=== PATIENT | male | born 1945 | race Caucasian/White ===

== ENCOUNTER 2020-12-23 14:30 | Inpatient (IN) | payer MEDICARE, SELFPAY ==
--- NOTE | ~2020-12-23 | CT_ITS ---
EXAMINATION: CT HEAD WITHOUT CONTRAST CT CERVICAL SPINE WITHOUT CONTRAST CLINICAL INFORMATION: Trauma COMPARISON: 01/14/2019 TECHNIQUE: Multidetector CT imaging of the head and cervical spine was performed without the use of intravenous contrast. Multiplanar reformats are reviewed. This CT examination was performed using dose optimization techniques as appropriate, variously including the following: *Automated exposure control *Adjustment of mA and/or kV according to patient size (this includes techniques or standardized protocols for targeted exams where dose is matched to indication/reason for exam; i.e. extremities or head) *Use of iterative reconstruction technique DLP: 1067 mGy-cm. FINDINGS: There is no evidence of acute intracranial hemorrhage or territorial infarction. No abnormal mass effect or midline shift is seen. Gross to white matter differentiation is well preserved. No extra-axial fluid collections are identified. The ventricles are normal in size. Stable patchy subcortical and periventricular white matter low-attenuation changes, statistically reflective of chronic white matter small vessel ischemic disease. Cavernous carotid calcifications. The osseous structures and soft tissues are normal. Complete opacification of the right axillary sinus, ethmoid air cells, right frontal sinus and sphenoid sinus redemonstrated, with associated hyperostosis. Left paranasal sinuses are clear. Mastoid air cells are clear. Atlantooccipital alignment is maintained. The vertebral bodies and posterior elements align normally. No acute fracture or subluxation. Vertebral body heights are maintained.Endplate osteophytes present throughout the cervical spine, most notably at C5-C6 and C6-C7 with accompanying uncovertebral arthrosis. Facet arthropathy present throughout the cervical spine. This leads to varying degrees of foraminal narrowing throughout the cervical spine. The cervicomedullary junction and spinal cord are grossly unremarkable. The paraspinal soft tissues are unremarkable. The imaged lung apices are clear CT/CT cervical spine wo con IMPRESSION: No acute intracranial pathology. No cervical spine fracture or malalignment. Complete opacification of the right paranasal sinuses redemonstrated, with accompanying hyperostosis.
--- NOTE | ~2020-12-23 | CT_ITS ---
EXAMINATION: CTA CHEST, PE protocol. CT PELVIS WITH CONTRAST CLINICAL INFORMATION: Hypoxia. Cough. Shortness of breath. Fall on left side. Dementia. COMPARISON: Chest x-ray 10/23/2020. CT abdomen 03/16/2018 TECHNIQUE: A noncontrast localizer was performed, followed by the administration of 54 mL Omnipaque [address] of the chest was then performed. Coronal and sagittal reformatted and 3-D technique MIP images of the chest were completed at the CT scanner and reviewed on the PACS workstation. No adverse effects were reported. Images were then performed through the pelvis. Coronal and sagittal reformatted images performed at CT scanner by technologist. [This CT examination was performed using dose optimization techniques as appropriate, variously including the following: *Automated exposure control *Adjustment of mA and/or kV according to patient size (this includes techniques or standardized protocols for targeted exams where dose is matched to indication/reason for exam; i.e. extremities or head) *Use of iterative reconstruction technique] DLP: 631 mGy-cm. FINDINGS: CTA CHEST Vascular: The main pulmonary artery, secondary and tertiary branches of the pulmonary artery are normally opacified with no evidence of pulmonary embolism. The aorta and great vessels are unremarkable. Mediastinum: No mediastinal mass. No significant lymphadenopathy. There is no pericardial effusion. Heart size is normal. Moderate volume of coronary artery calcification. Thyroid is unremarkable. Lungs: There is patchy airspace disease at both lung bases, right greater on the right than the left, involving both lower lobes. There are a few small airspace opacities also scattered in the right upper lobe Fluid: There is no pericardial effusion. There is no pleural effusion. Axilla: No significant lymphadenopathy. Upper abdomen: Multiple small calcified granuloma within the spleen. Visualized portions of the liver, pancreas, adrenal glands and kidneys are unremarkable. Large volume of stool in the colon without abnormally dilated bowel loop. CT SCAN PELVIS: Bladder: Unremarkable. Gastrointestinal Tract: No acute change of visualized bowel loops. There is no bowel wall thickening /edema. There is no bowel obstruction. There is a moderate to large volume of stool in the colon. The appendix is normal . The small bowel loops are unremarkable. Abdominal Wall: Small right inguinal hernia containing a nonobstructed loop of distal small bowel bowel. Lymph Nodes: Normal. Vascular: Atherosclerotic vascular calcifications of the abdominal aorta and iliac arteries. Pelvic Viscera: Prostate measures 4.2 cm transverse. There are coarse calcifications within the prostate. Osseous Structures: No acute osseous abnormality. No acute fracture. Status post left hip replacement. Orthopedic cement in the left acetabulum. Old healed fracture of the inferior and superior left pubic ramus. Intramedullary gordon present in the proximal right femur. Diffuse osteopenia. Multilevel degenerative spondylosis of the lower lumbar spine. Multiple healed old bilateral rib fractures. CT/CT angio chest PE protocol IMPRESSION: 1.CT CHEST: No evidence of pulmonary embolism. There is bilateral airspace disease worse in the right than the left lung. 2..CT PELVIS: No acute osseous abnormality. Status post left hip replacement. Intramedullary gordon present in the right femur. Old healed fractures of the left superior and inferior pubic ramus.
--- NOTE | ~2020-12-23 | XR_ITS ---
EXAMINATION: XR HIP, LEFT CLINICAL INFORMATION: Fall COMPARISON: Most recent left hip radiographs dated 07/10/2019. TECHNIQUE: AP view the pelvis as well as AP and frog-leg lateral views of the left hip. FINDINGS: No acute fracture or dislocation. Extensive postsurgical change consistent with left hip arthroplasty, redemonstrated. No hardware fracture. Along the lateral aspect of the femoral component there is lucency measuring 0.3 cm in ML dimension, new when compared to the prior examination. Findings could indicate a degree of loosening or infection in the appropriate clinical setting. Prominent dystrophic calcification adjacent to the left hip arthroplasty, unchanged. XR/XR hip LT w PEL1V IMPRESSION: No acute fracture or dislocation. Redemonstration of left hip arthroplasty with arthroplasty components in unchanged alignment. No hardware fracture. Increasing lucency along the lateral aspect of the femoral component, which could indicate a degree of loosening or infection in the appropriate clinical setting.
--- NOTE | ~2020-12-23 | XR_ITS ---
EXAMINATION: XR CHEST CLINICAL INFORMATION: Cough, shortness of breath. COMPARISON: Most recent chest radiograph dated 01/13/2018. TECHNIQUE: Frontal view of the chest was obtained. FINDINGS: No focal airspace consolidation. No pleural effusion or pneumothorax. Stable cardiomediastinal silhouette. No acute osseous abnormality. XR/XR chest 1V IMPRESSION: No acute cardiopulmonary findings.
[2020-12-23 14:46] VITALS: BP 98/35; PULSE 59; RESP 20; TEMP 36.5; O2SAT 92; BMI 17.3
--- NOTE | 2020-12-23 15:29 | ECG_ITS ---
Test Reason : WEAKNESS Blood Pressure : / mmHG Vent. Rate : 062 BPM Atrial Rate : 062 BPM P-R Int : 124 ms QRS Dur : 084 ms QT Int : 436 ms P-R-T Axes : 068 072 096 degrees QTc Int : 442 ms Sinus rhythm with occasional Premature ventricular complexes Nonspecific T wave abnormality Abnormal ECG When compared with ECG of 22-JAN-2019 06:51, Nonspecific T wave abnormality now evident in Lateral leads Referred By: Elisabeth Patricio Electronically Signed By:GUERA SHUKLA
[2020-12-23] MEDS: Albuterol/Iprat 2.5/0.5MG 3 ML AMPUL.NEB INHALE ×2 (16:13→18:10)
[2020-12-23 16:14] VITALS: PULSE 78; O2SAT 95
[2020-12-23 16:29] LABS: Basophils Percent Auto 0.1 % (0-2); Eosinophils Percent Auto 0.3 % (0-4); Hematocrit 41.4 % (42-52); Hemoglobin 13.1 g/dl (14.0-18.0); Imm Gran Abs Auto 0.01 X10*3/uL (0.00-0.03); Imm Gran Pct Auto 0.1 % (0.0-0.4); Lymphocytes Absolute Auto 0.6 X10*3/uL (1.2-4.9); Lymphocytes Percent Auto 8.2 % (20-40); MANUAL DIFF FLAG SCAN; Mean Corpuscular HGB Conc 31.6 g/dl (31.0-36.0); Mean Corpuscular Hemoglobin 30.3 pg (27.0-33.0); Mean Corpuscular Volume 95.6 fL (80-98); Mean Platelet Volume 12.4 fL (9.4-12.4); Monocytes Absolute Auto 0.3 X10*3/uL (0.1-1.2); Monocytes Percent Auto 4.5 % (2-11); Neutrophils Absolute Auto 6.4 X10*3/uL (2.0-8.3); Neutrophils Percent Auto 86.8 % (45-73); Platelet Count 157 X10*3/uL (160-400); Red Blood Count 4.33 X10*6/uL (4.60-5.80); Red Cell Distribution Width 13.6 % (11.0-16.0); SCAN SMEAR FLAG 1; White Blood Count 7.4 X10*3/uL (4.8-10.8)
[2020-12-23 16:34] LABS: INTERNATIONAL NORM RATIO 1.1 (0.9-1.1); Prothrombin Time 12.8 SEC (10.8-13.0)
[2020-12-23 16:37] LABS: Partial Thromboplastin Time 28.4 SEC (24.1-38.0)
[2020-12-23] MEDS: cefTRIAXone sodium 1 GM in 0.9 % Sodium Chloride 50 ML IV (16:43)
[2020-12-23] MEDS: 0.9 % Sodium Chloride 1,000 ML 999 ML IVCONT (16:43)
[2020-12-23 16:48] LABS: SLIDE REVIEW VERIFIED
[2020-12-23 16:56] LABS: Lactic Acid 1.6 mmol/L (0.5-2.0)
[2020-12-23 17:01] LABS: Alanine Aminotransferase 10 U/L (0-40); Albumin Level 3.9 g/dL (3.5-5.0); Alkaline Phosphatase 131 U/L (39-117); Anion Gap 16 (12-20); Aspartate Amino Transferase 13 U/L (5-37); Bilirubin Direct 0.4 mg/dL (0.0-0.5); Bilirubin Total 0.8 mg/dL (0.0-1.0); Blood Urea Nitrogen 38 mg/dL (9-16); Calcium 8.9 mg/dL (8.4-10.2); Carbon Dioxide 26 mmol/L (22-29); Chloride 106 mmol/L (96-108); Creatinine Clr Calc Pharmacy 36.3; Estimated Glomerular Filt Rate 53; Glucose Random 127 mg/dL (60-115); Magnesium 2.1 mg/dL (1.6-2.6); Potassium 4.5 mmol/L (3.3-5.1); Sodium 143 mmol/L (135-145); Total Protein 6.8 g/dL (6.5-8.0)
--- NOTE | 2020-12-23 17:10 | ED_ITS ---
HPI - General Adult General Chief complaint: General Medical Stated complaint: FALL 5 DAYS AGO, ?BACK PAIN Time Seen by Provider: 12/23/20 15:09 Source: patient and EMS Mode of arrival: EMS History of Present Illness HPI narrative: 75-year-old male with a past medical history of dementia, orthostatic hypotension, coming from home BIBA c/o increased SOB, cough, and left hip pain x5 days s/p mechanical fall at home. Patient reports tripped and fell over carpet, reports believes he hit his head, admits to LOC, states fell on left side. Denies chest pain, fever, chills, abdominal pain, nausea, vomiting, headache History limited secondary to patient's baseline dementia. Unable to get a hold of patient's family Related Data Allergies Allergy/AdvReac Type Severity Reaction Status Date / Time No Known Allergies Allergy Unverified 04/13/20 16:05 [No Known Allergies*] Review of Systems Review of Systems: Constitutional: No Fever, No Chills Cardiovascular: No Chest Pain, + SOB, No Orthopnea, No Edema Respiratory: + Cough, No Sputum, No Wheezing, +Dyspnea Gastrointestinal: No Nausea, No Vomiting, No Diarrhea, No Abdominal pain Genitourinary: No Dysuria, No Urinary Frequency, No Hematuria Musculoskeletal: + joint pain, No Myalgias, No Joint Swelling Skin: No Skin Lesions, No rash Neuro: No Weakness, No Numbness, No Paresthesias, + Loss of Consciousness, No Dizziness, No Headache Yes all other systems are reviewed and are negative [facility] Past Medical History Attestation statement: The following information was validated with the patient. Social History Social History Patient Tobacco Use Status: Tobacco use Unknown Use of substances other than those prescribed or required for medical reasons: Unknown Last Used Substance: Unknown Advance Directives: No Advance Directives Information Provided: No Physical Exam Vital Signs: Vital Signs: Last Vital Signs Temp 97.7 F 12/23/20 14:46 Pulse 85 12/23/20 18:02 Resp 20 12/23/20 18:02 BP 98/35 L 12/23/20 14:46 Pulse Ox 95 12/23/20 18:02 Body Mass Index 17.3 Const: General: cooperative, alert and awake Orientation/consciousness: oriented to person and oriented to place HENMT: Head: Yes normal to inspection and Yes atraumatic Ears: hearing grossly normal bilaterally General nose exam: Normal external nose present Face and sinus: Yes normal facial exam Eyes: General: appearance normal, both eyes and all related structures Pupils: Equal, round and reactive pupils present EOM: EOMs intact bilaterally Neck: Other: No midline cervical spinous tenderness Neck: Yes normal visual inspection and Yes no meningeal signs Chest: Chest palpation & inspection: normal inspection of the chest and no tenderness Resp: Other: Coarse lung sounds throughout Effort & Inspection: normal respiratory effort Auscultation: rhonchi throughout Cardio: Rate: regular rate Heart sounds: S1 normal heart sound present and S2 normal heart sound present GI: Inspection: Yes normal to inspection Palpation (GI): Soft to palpation, nontender, no guarding and not rigid Back/Spine/Pelvis: Other: No midline thoracic/lumbar spinous tenderness or step-off/deformity Skin: Rashes: no rashes Wounds: no wounds Neuro: General: oriented to person, oriented to place, tone normal, moves all extremities, no meningeal signs and CN's II-XI intact bilaterally Cranial nerves: Yes Equal, round and reactive pupils present Motor exam (neuro): 5/5 motor strength present throughout, Pronator motor function not present and no tremor noted Coordination: [id number] test normal Extrem: Other: Pelvis stable. Left hip with tenderness to palpation. Passive and active ROM intact. NV intact distally General: Yes normal to inspection Course Course Course Narrative: -no leukocytosis, H&H stable, lactic negative, troponin 4.1 XR chest 1V IMPRESSION: No acute cardiopulmonary findings. >> will obtain CTA to rule out PE CT head/brain wo con IMPRESSION: No acute intracranial pathology. No cervical spine fracture or malalignment. Complete opacification of the right paranasal sinuses redemonstrated, with accompanying hyperostosis. XR hip LT w PEL1V IMPRESSION: No acute fracture or dislocation. Redemonstration of left hip arthroplasty with arthroplasty components in unchanged alignment. No hardware fracture. Increasing lucency along the lateral aspect of the femoral component, which could indicate a degree of loosening or infection in the appropriate clinical setting. >> will obtain CT pelvis and hip to further evaluate secondary to patient's dementia/unreliable history -1914--COVID-19/influenza/RSV negative. CT angio chest PE protocol/CT pelvis wo con IMPRESSION: 1.CT CHEST: No evidence of pulmonary embolism. There is bilateral airspace disease worse in the right than the left lung. 2..CT PELVIS: No acute osseous abnormality. Status post left hip replacement. Intramedullary gordon present in the right femur. Old healed fractures of the left superior and inferior pubic ramus. >> IV azithromycin added. Plan to admit for further management. Medical Decision Making [facility] Narrative Medical decision making narrative: 75-year-old male with a past medical history of dementia, orthostatic hypotension, coming from home BIBA c/o increased SOB, cough, and left hip pain x5 days s/p mechanical fall at home. On exam hypotensive, satting 83% on RA coarse lung sounds throughout, left hip with tenderness to palpation, no focal neuro deficits. Concern for pneumonia vs PE vs COVID-19/viral syndrome. Rule out fracture vs ICH vs metabolic abnormalities. Low concern for severe sepsis at this time Plan: EKG, labs, UA, x-rays, head/C-spine CT, DuoNeb, reassess Lab Data Result diagrams: 12/23/20 16:22 12/23/20 16:22 Labs: Lab Results 12/23/20 12/23/20 12/23/20 Range/Units 16:22 16:22 16:22 WBC 7.4 (4.8-10.8) X10*3/uL RBC 4.33 L (4.60-5.80) X10*6/uL Hgb 13.1 L (14.0-18.0) g/dl Hct 41.4 L (42-52) % MCV 95.6 (80-98) fL MCH 30.3 (27.0-33.0) pg MCHC 31.6 (31.0-36.0) g/dl RDW 13.6 (11.0-16.0) % Plt Count 157 L (160-400) X10*3/uL MPV 12.4 (9.4-12.4) fL Immature Gran % (Auto) 0.1 (0.0-0.4) % Neut % (Auto) 86.8 H (45-73) % Lymph % (Auto) 8.2 L (20-40) % [place] % (Auto) 4.5 (2-11) % Eos % (Auto) 0.3 (0-4) % Baso % (Auto) 0.1 (0-2) % Lymph # (Auto) 0.6 L (1.2-4.9) X10*3/uL [place] # (Auto) 0.3 (0.1-1.2) X10*3/uL Eos # (Auto) 0.0 (0.0-0.4) X10*3/uL Baso # (Auto) 0.0 (0.0-0.2) X10*3/uL Abs Immat Gran (auto) 0.01 (0.00-0.03) X10*3/uL Absolute Neuts (auto) 6.4 (2.0-8.3) X10*3/uL Absolute Nucleated RBC 0.000 (0.0-0.012) X10*3/uL Nucleated RBC % (auto) 0.0 (0.0-0.2) /100WBC Smear Tech's Comments VERIFIED PT 12.8 (10.8-13.0) SEC INR 1.1 (0.9-1.1) APTT 28.4 (24.1-38.0) SEC Sodium 143 (135-145) mmol/L Potassium 4.5 (3.3-5.1) mmol/L Chloride 106 (96-108) mmol/L Carbon Dioxide 26 (22-29) mmol/L Anion Gap 16 (12-20) BUN 38 H (9-16) mg/dL Creatinine 1.32 (0.5-1.4) mg/dL Estim Creat Clear Calc 36.3 Estimated GFR 53 Random Glucose 127 H (60-115) mg/dL Lactic Acid (0.5-2.0) mmol/L Calcium 8.9 (8.4-10.2) mg/dL Magnesium 2.1 (1.6-2.6) mg/dL Total Bilirubin 0.8 (0.0-1.0) mg/dL Direct Bilirubin 0.4 (0.0-0.5) mg/dL AST 13 (5-37) U/L ALT 10 (0-40) U/L Alkaline Phosphatase 131 H (39-117) U/L Troponin I High Sens (<3.5-35.0) ng/L B-Natriuretic Peptide (<100) pg/mL Total Protein 6.8 (6.5-8.0) g/dL Albumin 3.9 (3.5-5.0) g/dL Coronavirus (PCR) (Negative) Influenza Type A (PCR) (Negative) Influenza Type B (PCR) (Negative) RSV RNA Qual (PCR) (Negative) 12/23/20 12/23/20 12/23/20 Range/Units 16:22 16:22 18:15 WBC (4.8-10.8) X10*3/uL RBC (4.60-5.80) X10*6/uL Hgb (14.0-18.0) g/dl Hct (42-52) % MCV (80-98) fL MCH (27.0-33.0) pg MCHC (31.0-36.0) g/dl RDW (11.0-16.0) % Plt Count (160-400) X10*3/uL MPV (9.4-12.4) fL Immature Gran % (Auto) (0.0-0.4) % Neut % (Auto) (45-73) % Lymph % (Auto) (20-40) % [place] % (Auto) (2-11) % Eos % (Auto) (0-4) % Baso % (Auto) (0-2) % Lymph # (Auto) (1.2-4.9) X10*3/uL [place] # (Auto) (0.1-1.2) X10*3/uL Eos # (Auto) (0.0-0.4) X10*3/uL Baso # (Auto) (0.0-0.2) X10*3/uL Abs Immat Gran (auto) (0.00-0.03) X10*3/uL Absolute Neuts (auto) (2.0-8.3) X10*3/uL Absolute Nucleated RBC (0.0-0.012) X10*3/uL Nucleated RBC % (auto) (0.0-0.2) /100WBC Smear Tech's Comments PT (10.8-13.0) SEC INR (0.9-1.1) APTT (24.1-38.0) SEC Sodium (135-145) mmol/L Potassium (3.3-5.1) mmol/L Chloride (96-108) mmol/L Carbon Dioxide (22-29) mmol/L Anion Gap (12-20) BUN (9-16) mg/dL Creatinine (0.5-1.4) mg/dL Estim Creat Clear Calc Estimated GFR Random Glucose (60-115) mg/dL Lactic Acid 1.6 (0.5-2.0) mmol/L Calcium (8.4-10.2) mg/dL Magnesium (1.6-2.6) mg/dL Total Bilirubin (0.0-1.0) mg/dL Direct Bilirubin (0.0-0.5) mg/dL AST (5-37) U/L ALT (0-40) U/L Alkaline Phosphatase (39-117) U/L Troponin I High Sens 4.1 (<3.5-35.0) ng/L B-Natriuretic Peptide 79 (<100) pg/mL Total Protein (6.5-8.0) g/dL Albumin (3.5-5.0) g/dL Coronavirus (PCR) NEGATIVE (Negative) Influenza Type A (PCR) NEGATIVE (Negative) Influenza Type B (PCR) NEGATIVE (Negative) RSV RNA Qual (PCR) NEGATIVE (Negative) ECG Data Attestation: I personally reviewed and interpreted this ECG as follows: Interpretation: EKG sinus rhythm with PVCs. Rate of 62. No STEMI. Artifact present Discharge Plan Discharge Clinical Impression: Pneumonia Qualifiers: Pneumonia type: due to unspecified organism Laterality: bilateral Lung location: unspecified part of lung Qualified Code(s): J18.9 - Pneumonia, unspecified organism Patient Disposition: Admitted As Inpatient
[2020-12-23 17:38] LABS: B Type Natriuretic Peptide 79 pg/mL (<100); Troponin-I High Sensitivity 4.1 ng/L (<3.5-35.0)
[2020-12-23 18:02] VITALS: PULSE 85; RESP 20; O2SAT 95
[2020-12-23] MEDS: iohexoL 350 MG/ML 100 ML INFUS..BTL IV (18:10)
[2020-12-23 19:01] LABS: Influenza A PCR NEGATIVE (Negative); Influenza B PCR NEGATIVE (Negative); Resp Syncy Virus RNA Qual PCR NEGATIVE (Negative); SARS COV2 PCR INHOUSE NEGATIVE (Negative)
--- NOTE | 2020-12-23 19:30 | P.HPHOSP_ITS ---
History of Present Illness Date of Service: 12/23/20 Chief Complaint: cough 75-year-old male with a past medical history of dementia, orthostatic hypotension presented to the hospital with a chief complaint of cough and shortness of breath. Most of the history obtained from the patient, patient is on dizzy, ER staff. Reportedly patient had a fall about 3 days ago mentions that he has been complaining of the back pain. As per the patient's and patient intermittently has dizzy spells. Uses feels it mostly. But able to get around the house okay. Today patient complained of cough and shortness of breath to the son and subsequently called EMS and sent to the ER for further evaluation. Denies any chest pain palpitations lightheadedness dizziness. Denies any numbness tingling. Denies any nausea vomiting or diarrhea. Per patient's son patient does not have any trouble swallowing. Family reported that patient does not like to go to hospitals or doctors and does not take any medications at home. Review of all other systems is negative except mentioned above ER course: Per ER team patient noted nonfocal exam and found to be hypoxic to 83% on presentation; placed on 2 L of supplemental oxygen with oxygenation improved to 96%. Patient was not in respiratory distress. CT angio of the chest was done which showed no evidence of pulmonary embolism but noted bilateral pneumonia. Patient was started on ceftriaxone and azithromycin. Admitted to the hospital for further management. Patient also complained of the left hip pain-CT of the hip showed no evidence of fracture. CT head and CT C-spine showed no evidence of acute findings. EKG was nonischemic, troponin negative. Blood pressure on the soft side-given IV fluids. [facility] Social History Household Members: Unknown / Unable to assess Housing: Unknown / Unable to assess Unable to assess alcohol history related to: Unknown Patient Tobacco Use Status: Tobacco use Unknown Use of substances other than those prescribed or required for medical reasons: Unknown Last Used Substance: Unknown Currently Displaying Signs/Symptoms of Drug Intoxication Withdrawal: No Advance Directives: No Advance Directives Information Provided: No Do you have thoughts of harming others: None Do you have a plan to hurt others: No Plan Recently lost weight without trying: Unsure Current occupational status: retired Meds Allergies Allergy/AdvReac Type Severity Reaction Status Date / Time No Known Allergies Allergy Verified 12/24/20 08:35 [No Known Allergies*] Active Medications: Current Medications Generic Name Dose Route Start Last Admin Trade Name Aguilar PRN Reason Stop Dose Admin Acetaminophen 650 mg 12/23/20 19:25 Acetaminophen 325 Mg Tablet PO Q6H PRN Pain, Mild (Pain Scale 1-3) Albuterol/Ipratropium 3 ml 12/23/20 19:25 Albuterol/Iprat 2.5/0.5mg 3 Ml Ampul.Neb INHALE RQ4H WHILE AWAKE PRN Shortness of Breath/Wheezing Docusate Sodium 100 mg 12/23/20 21:00 Docusate Sodium 100 Mg Capsule PO BID KARLIE Azithromycin 500 mg/ Sodium 250 mls @ 125 mls/hr 12/23/20 19:13 Chloride IV 12/23/20 21:12 ONCE ONE Ceftriaxone Sodium 1 gm/ 50 mls @ 100 mls/hr 12/23/20 19:30 Sodium Chloride IV Q24H KARLIE Azithromycin 500 mg/ Sodium 250 mls @ 125 mls/hr 12/23/20 19:30 Chloride IV Q24H KARLIE Sodium Chloride 1,000 mls @ 50 mls/hr 12/23/20 19:30 Ns IVCONT .Q20H KARLIE Magnesium Hydroxide 30 ml 12/23/20 19:25 Milk Of Magnesia 30 Ml Oral.Susp PO DAILY PRN Constipation Senna 17.2 mg 12/23/20 19:25 Sennosides 8.6 Mg Tablet PO BEDTIME PRN Constipation Sodium Chloride 3 ml 12/24/20 00:00 0.9 % Sodium Chloride Flush 3 Ml Syringe IVFLUSH QSHIFT [facility] Physical Exam Vital Signs and Narrative: Vital Signs: Last Vital Signs Temp 97.7 F 12/23/20 14:46 Pulse 85 12/23/20 18:02 Resp 20 12/23/20 18:02 BP 98/35 L 12/23/20 14:46 Pulse Ox 95 12/23/20 18:02 Body Mass Index 17.3 Gen: Appears be in no acute distress HEENT: NCAT, Moist mucosa. Pulmonary: Course breath sounds, fair air entry CVS: Normal S1-S2 Abdomen: BS+, Soft, Nontender Extremities: Warm well perfused Neuro: Alert and awake. Grossly nonfocal Results Labs CBC and Chem 7: 12/24/20 05:54 06/02/21 12:18 Labs: Laboratory Results - last 24 hr 12/23/20 12/23/20 12/23/20 16:22 16:22 16:22 MCV 95.6 MCH 30.3 MCHC 31.6 RDW 13.6 Plt Count 157 L MPV 12.4 Immature Gran % (Auto) 0.1 Neut % (Auto) 86.8 H Lymph % (Auto) 8.2 L [place] % (Auto) 4.5 Eos % (Auto) 0.3 Baso % (Auto) 0.1 Lymph # (Auto) 0.6 L [place] # (Auto) 0.3 Eos # (Auto) 0.0 Baso # (Auto) 0.0 Abs Immat Gran (auto) 0.01 Absolute Neuts (auto) 6.4 Absolute Nucleated RBC 0.000 Nucleated RBC % (auto) 0.0 Smear Tech's Comments VERIFIED PT 12.8 INR 1.1 APTT 28.4 Anion Gap 16 Estim Creat Clear Calc 36.3 Estimated GFR 53 Random Glucose 127 H Lactic Acid Calcium 8.9 Magnesium 2.1 Total Bilirubin 0.8 Direct Bilirubin 0.4 AST 13 ALT 10 Alkaline Phosphatase 131 H Troponin I High Sens B-Natriuretic Peptide Total Protein 6.8 Albumin 3.9 Coronavirus (PCR) Influenza Type A (PCR) Influenza Type B (PCR) RSV RNA Qual (PCR) 12/23/20 12/23/20 12/23/20 16:22 16:22 18:15 MCV MCH MCHC RDW Plt Count MPV Immature Gran % (Auto) Neut % (Auto) Lymph % (Auto) [place] % (Auto) Eos % (Auto) Baso % (Auto) Lymph # (Auto) [place] # (Auto) Eos # (Auto) Baso # (Auto) Abs Immat Gran (auto) Absolute Neuts (auto) Absolute Nucleated RBC Nucleated RBC % (auto) Smear Tech's Comments PT INR APTT Anion Gap Estim Creat Clear Calc Estimated GFR Random Glucose Lactic Acid 1.6 Calcium Magnesium Total Bilirubin Direct Bilirubin AST ALT Alkaline Phosphatase Troponin I High Sens 4.1 B-Natriuretic Peptide 79 Total Protein Albumin Coronavirus (PCR) NEGATIVE Influenza Type A (PCR) NEGATIVE Influenza Type B (PCR) NEGATIVE RSV RNA Qual (PCR) NEGATIVE Imaging Radiologist's Impressions: Impressions Cervical Spine CT 12/23/20 15:28 IMPRESSION: No acute intracranial pathology. No cervical spine fracture or malalignment. Complete opacification of the right paranasal sinuses redemonstrated, with accompanying hyperostosis. Head CT 12/23/20 15:28 IMPRESSION: No acute intracranial pathology. No cervical spine fracture or malalignment. Complete opacification of the right paranasal sinuses redemonstrated, with accompanying hyperostosis. Hip/Pelvis X-Ray 12/23/20 15:28 IMPRESSION: No acute fracture or dislocation. Redemonstration of left hip arthroplasty with arthroplasty components in unchanged alignment. No hardware fracture. Increasing lucency along the lateral aspect of the femoral component, which could indicate a degree of loosening or infection in the appropriate clinical setting. Chest X-Ray 12/23/20 15:29 IMPRESSION: No acute cardiopulmonary findings. Chest CTA 12/23/20 17:16 IMPRESSION: 1.CT CHEST: No evidence of pulmonary embolism. There is bilateral airspace disease worse in the right than the left lung. 2..CT PELVIS: No acute osseous abnormality. Status post left hip replacement. Intramedullary gordon present in the right femur. Old healed fractures of the left superior and inferior pubic ramus. Pelvis CT 12/23/20 17:16 IMPRESSION: 1.CT CHEST: No evidence of pulmonary embolism. There is bilateral airspace disease worse in the right than the left lung. 2..CT PELVIS: No acute osseous abnormality. Status post left hip replacement. Intramedullary gordon present in the right femur. Old healed fractures of the left superior and inferior pubic ramus. Assessment and Plan (1) Pneumonia: Qualifiers: Laterality: bilateral Lung location: unspecified part of lung Pneumonia type: due to unspecified organism Qualified Code(s): J18.9 - Pneumonia, unspecified organism Status: Acute 75-year-old male with a past medical history of dementia, orthostatic hypotension presented to the hospital with a chief complaint of shortness of breath and cough. Noted to have pneumonia. Shortness of breath: Likely in the setting of pneumonia. CT showed no evidence of pulmonary embolism. EKG nonischemic. Will also obtain an echocardiogram. Troponin negative. COVID negative. Will obtain TSH, hemoglobin A1c, lipid profile. Bilateral pneumonia: Continue ceftriaxone azithromycin. Dysphagia screen. Speech and swallow eval. Acute hypoxic respiratory failure: Secondary to pneumonia. Patient on presentation was saturating at 83% on room air. On 2 L of supplemental oxygen patient saturating at 96%. Not in respiratory distress. Will continue to monitor. Fall: Unwitnessed. Patient denies any loss of consciousness. Complains of the hip pain but CT negative for any acute fracture. CT head showed no acute intracranial process. Nonfocal exam. CT C-spine showed no acute fracture. Reportedly patient has history of orthostatic hypotension and has dizzy spells at home, uses wheelchair for son. Orthostatic vitals PT/OT Mild ADA: Gentle IV fluids. Avoid nephrotoxins. DVT prophylaxis: SCD boots Code status: Full code
[2020-12-23] MEDS: Docusate Sodium 100 MG CAPSULE PO (20:17)
[2020-12-23] MEDS: Azithromycin 500 MG in 0.9 % Sodium Chloride 250 ML 125 MG IV (20:17)
[2020-12-23] MEDS: 0.9 % Sodium Chloride 1,000 ML 50 ML IVCONT (20:19)
[2020-12-23 20:35] LABS: Troponin-I High Sensitivity 6.6 ng/L (<3.5-35.0)
[2020-12-23 20:40] VITALS: BP 124/55; PULSE 72; RESP 19; O2SAT 95
[2020-12-23 22:21] VITALS: BMI 19.1
--- NOTE | 2020-12-23 23:19 | PC.NURSE ---
PT TRANSPORTED TO [facility] VIA STRETCHER BY THIS RN. NO DISTRESS NOTED
[2020-12-24] VITALS (8 sets, daily range): BP systolic 93–177; BP diastolic 44–78; PULSE 50–80; RESP 18–20; TEMP 36.5–37.2; O2SAT 90–97
[2020-12-24 07:02] LABS: Cholesterol 140 mg/dL; HDL Cholesterol 37 mg/dL; LDL Cholesterol Calculated 94 mg/dl; Triglycerides 46 mg/dL
[2020-12-24 07:04] LABS: Anion Gap 14 (12-20); Blood Urea Nitrogen 28 mg/dL (9-16); Calcium 8.1 mg/dL (8.4-10.2); Carbon Dioxide 25 mmol/L (22-29); Chloride 107 mmol/L (96-108); Creatinine Clr Calc Pharmacy 49.4; Estimated Glomerular Filt Rate > 60; Glucose Random 104 mg/dL (60-115); Potassium 4.3 mmol/L (3.3-5.1); Sodium 142 mmol/L (135-145)
[2020-12-24 07:14] LABS: Hemoglobin 11.5 g/dl (14.0-18.0); Mean Corpuscular Hemoglobin 29.9 pg (27.0-33.0); Mean Corpuscular Volume 94.3 fL (80-98)
[2020-12-24 07:17] LABS: Hematocrit 36.2 % (42-52); Mean Corpuscular HGB Conc 31.8 g/dl (31.0-36.0); Mean Platelet Volume 13.4 fL (9.4-12.4); Platelet Count 141 X10*3/uL (160-400); Red Blood Count 3.84 X10*6/uL (4.60-5.80); Red Cell Distribution Width 13.6 % (11.0-16.0); White Blood Count 10.7 X10*3/uL (4.8-10.8)
[2020-12-24 07:22] LABS: Thyroid Stimulating Hormone 0.81 uIU/mL (0.32-4.0)
[2020-12-24] MEDS: Docusate Sodium 100 MG CAPSULE PO (07:30)
[2020-12-24 07:40] LABS: PLT ABN DIST 1
[2020-12-24 08:28] LABS: Band Neutrophils Percent 19 % (3-5); Eosinophils Absolute Manual 0.2 X10*3/UL (0.0-0.8); Eosinophils Percent Manual 2 % (0-4); Lymphocytes Absolute Manual 0.7 X10*3/uL (0.6-4.8); Lymphocytes Percent Manual 7 % (20-40); Monocytes Absolute Manual 0.7 X10*3/uL (0.0-1.2); Monocytes Percent Manual 7 % (2-11); Neutrophils Percent Manual 65 % (45-73)
[2020-12-24 08:29] LABS: Large Platelet PRESENT; Platelet Estimate SLIGHTLY DECREASED (NORMAL); Platelet Morphology Comment NOTED; RBC Morphology NORMAL
--- NOTE | 2020-12-24 13:34 | P.PNIM_ITS ---
Subjective Subjective Date of Service: 12/24/20 Interval History: seen in f/u for respiratory failure, she seems confused but seems to be her baseline Review of Systems Gen: no fever Resp: no sob, no cough CV: no chest, no LOPEZ, no leg edema GI: No n/v, no abd pain Neuro: confusion Physical Exam Vital Signs: Vital Signs: Last Vital Signs Temp 98.9 F 12/24/20 11:38 Pulse 60 12/24/20 11:38 Resp 20 12/24/20 11:38 BP 135/78 12/24/20 11:38 Pulse Ox 93 12/24/20 11:38 Body Mass Index 19.1 Const: Other: General: AO X 1 self, no acute distress Resp: CTA bilateral CVS: S1,S2,RRR GI: +BS, NT, no distention Skin: No rash Neuro: motor grossly intact Psych: appropriate affect Objective Data Current Medications Generic Name Dose Route Start Last Admin Trade Name Freq PRN Reason Stop Dose Admin Acetaminophen 650 mg 12/23/20 19:25 Acetaminophen 325 Mg Tablet PO Q6H PRN Pain, Mild (Pain Scale 1-3) Albuterol/Ipratropium 3 ml 12/23/20 19:25 Albuterol/Iprat 2.5/0.5mg 3 Ml Ampul.Neb INHALE RQ4H WHILE AWAKE PRN Shortness of Breath/Wheezing Docusate Sodium 100 mg 12/23/20 21:00 12/24/20 07:30 Docusate Sodium 100 Mg Capsule PO 100 mg BID KARLIE Administration Azithromycin 500 mg/ Sodium 250 mls @ 125 mls/hr 12/24/20 20:00 Chloride IV Q24H KARLIE Sodium Chloride 1,000 mls @ 50 mls/hr 12/23/20 19:30 12/23/20 20:19 Ns IVCONT 50 mls/hr .Q20H KARLIE Administration Ceftriaxone Sodium 1 gm/ 50 mls @ 100 mls/hr 12/24/20 16:00 Sodium Chloride IV Q24H KARLIE Magnesium Hydroxide 30 ml 12/23/20 19:25 Milk Of Magnesia 30 Ml Oral.Susp PO DAILY PRN Constipation Senna 17.2 mg 12/23/20 19:25 Sennosides 8.6 Mg Tablet PO BEDTIME PRN Constipation Sodium Chloride 3 ml 12/24/20 00:00 12/24/20 07:30 0.9 % Sodium Chloride Flush 3 Ml Syringe IVFLUSH Not Given QSHIFT [facility] Labs CBC & Chem 7: 12/24/20 05:54 12/24/20 05:54 Assessment and Plan (1) Pneumonia: Status: Acute Assessment and Plan: 75-year-old male with a past medical history of dementia, orthostatic hypotension presented to the hospital with a chief complaint of shortness of breath and cough. Noted to have pneumonia. Shortness of breath due to pneumonia. CT showed no evidence of pulmonary embolism. EKG nonischemic. BNP is normal. Hold off doing echo Troponin negati ve. COVID negative. normal TSH Bilateral pneumonia: Continue ceftriaxone azithromycin. Dysphagia screen. Speech and swallow eval. Acute hypoxic respiratory failure: Secondary to pneumonia. Patient on presentation was saturating at 83% on room air. On 2 L of supplemental oxygen patient saturating at 96%. Not in respiratory distress. Will continue to monitor. Fall: Unwitnessed. Patient denies any loss of consciousness. Complains of the hip pain but CT negative for any acute fracture. CT head showed no acute intracranial process. Nonfocal exam. CT C-spine showed no acute fracture. Reportedly patient has history of orthostatic hypotension and has dizzy spells at home, uses wheelchair for son. Orthostatic vitals PT/OT Mild ADA: Gentle IV fluids. Avoid nephrotoxins. DVT prophylaxis: SCD boots Code status: Full code
[2020-12-24] MEDS: 0.9 % Sodium Chloride 1,000 ML 50 ML IVCONT (15:20)
[2020-12-24] MEDS: cefTRIAXone sodium 1 GM in 0.9 % Sodium Chloride 50 ML IV (15:20)
[2020-12-24] MEDS: Azithromycin 500 MG in 0.9 % Sodium Chloride 250 ML 125 MG IV (19:27)
[2020-12-25] VITALS (7 sets, daily range): BP systolic 115–171; BP diastolic 60–88; PULSE 57–78; RESP 15–18; TEMP 36.4–36.9; O2SAT 92–98
[2020-12-25 07:01] LABS: Estimated Average Glucose 111 mg/dL; Hemoglobin A1c % 5.5 %
[2020-12-25] MEDS: Docusate Sodium 100 MG CAPSULE PO (09:47)
[2020-12-25] MEDS: 0.9 % Sodium Chloride 1,000 ML 50 ML IVCONT (11:41)
--- NOTE | 2020-12-25 12:22 | MHC.SL.SWA ---
Speech Pathologist Impression: Risk of Aspiration Oralpharyngeal Dysphagia Risk of Aspiration Due to: Reduced Cognition Dysphasia Diet Status: No Change Liquid Consistency and Strategies for Safe Swallow: Liquid Intake Recommendation: Thin Liquid Intake Strategies: Small Sips Solid Food Consistency: Dietary Recommendations: Regular Oral Medication Intake: Whole with Liquid Compensatory Strategies and Precautions to be Taken for Safe Swallow: Sitting Upright (90 deg) Small Bites and Sips Alternate Liquids/Solids Rate of Ingestion Change Supervision While Eating and Drinking for Safe Swallow: Intermittent Supervision Swallowing Recommended Treatments: Compens. Strategy Educat. Recommendation for Speech: Inpatient Speech Therapy Comment: Due to pneumonia, worse in right lung, PROCESS MOLD TECHNICIAN will continue to follow to re-assess tolerance and monitor for any overt s/s of aspiration. Manager Marketing Communication Clinican/Clinical Fellow: No Supervisory Statement: I have reviewed and agree with the student/clinical fellow's documentation: N/A Speech Language Pathologist: Nora Mederos M.A., [facility]-PROCESS MOLD TECHNICIAN
--- NOTE | 2020-12-25 13:17 | P.PNIM_ITS ---
Subjective Subjective Date of Service: 12/25/20 Interval History: seen in f/u for respiratory failure, no new complaint, no sob Review of Systems Gen: no fever Resp: no sob, no cough CV: no chest, no LOPEZ, no leg edema GI: No n/v, no abd pain Neuro: confusion Physical Exam Vital Signs: Vital Signs: Last Vital Signs Temp 98.5 F 12/25/20 10:58 Pulse 57 12/25/20 10:58 Resp 18 12/25/20 10:58 BP 171/80 H 12/25/20 10:58 Pulse Ox 93 12/25/20 10:58 Body Mass Index 19.1 Const: Other: General: AO X 1 self, no acute distress Resp: CTA bilateral CVS: S1,S2,RRR GI: +BS, NT, no distention Skin: No rash Neuro: motor grossly intact Psych: appropriate affect Objective Data Current Medications Generic Name Dose Route Start Last Admin Trade Name Freq PRN Reason Stop Dose Admin Acetaminophen 650 mg 12/23/20 19:25 Acetaminophen 325 Mg Tablet PO Q6H PRN Pain, Mild (Pain Scale 1-3) Albuterol/Ipratropium 3 ml 12/23/20 19:25 Albuterol/Iprat 2.5/0.5mg 3 Ml Ampul.Neb INHALE RQ4H WHILE AWAKE PRN Shortness of Breath/Wheezing Docusate Sodium 100 mg 12/23/20 21:00 12/25/20 09:47 Docusate Sodium 100 Mg Capsule PO 100 mg BID KARLIE Administration Azithromycin 500 mg/ Sodium 250 mls @ 125 mls/hr 12/24/20 20:00 12/24/20 21:50 Chloride IV Infused Q24H KARLIE Infusion Sodium Chloride 1,000 mls @ 50 mls/hr 12/23/20 19:30 12/25/20 11:41 Ns IVCONT 50 mls/hr .Q20H KARLIE Administration Ceftriaxone Sodium 1 gm/ 50 mls @ 100 mls/hr 12/24/20 16:00 12/24/20 15:56 Sodium Chloride IV Infused Q24H KARLIE Infusion Magnesium Hydroxide 30 ml 12/23/20 19:25 Milk Of Magnesia 30 Ml Oral.Susp PO DAILY PRN Constipation Senna 17.2 mg 12/23/20 19:25 Sennosides 8.6 Mg Tablet PO BEDTIME PRN Constipation Sodium Chloride 3 ml 12/24/20 00:00 12/25/20 09:47 0.9 % Sodium Chloride Flush 3 Ml Syringe IVFLUSH Not Given QSHIFT KARLIE Labs CBC & Chem 7: 12/24/20 05:54 12/24/20 05:54 Microbiology Microbiology Results: Microbiology 12/23/20 16:22 Blood - Venous Blood Culture - Preliminary No growth after 24 hours. 12/23/20 16:22 Blood - Venous Blood Culture - Preliminary No growth after 24 hours. Assessment and Plan (1) Pneumonia: Status: Acute Assessment and Plan: 75-year-old male with a past medical history of dementia, orthostatic hypotension presented to the hospital with a chief complaint of shortness of breath and cough. Noted to have pneumonia. Shortness of breath due to pneumonia. CT showed no evidence of pulmonary embolism. EKG nonischemic. BNP is normal. Hold off doing echo Troponin negative. COVID negative. normal TSH Bilateral pneumonia: Continue ceftriaxone azithromycin. No dysphagia per seech Acute hypoxic respiratory failure: Secondary to pneumonia. Seems resolved, sating 93 on room air Patient on presentation was saturating at 83% on room air. On 2 L of supple mental oxygen patient saturating at 96%. Not in respiratory distress. Will continue to monitor. Fall: Unwitnessed. Patient denies any loss of consciousness. Complains of the hip pain but CT negative for any acute fracture. CT head showed no acute intracranial process. Nonfocal exam. CT C-spine showed no acute fracture. PT eval tomorrow Reportedly patient has history of orthostatic hypotension and has dizzy spells at home, uses wheelchair for son. Orthostatic vitals PT/OT Mild ADA: Gentle IV fluids. Avoid nephrotoxins. DVT prophylaxis: SCD boots Code status: Full code
--- NOTE | 2020-12-25 16:20 | MHC.CM.PN ---
PER EMR, PT LIVES WITH HIS SON, SONI ([phone]). A MESSAGE WAS LEFT FOR HIM HOWEVER CM HAS NO SPOKEN TO HIM OF YET. CM DID ATTEMPT TO OBTAIN INFORMATION FROM PT HOWEVER HE PROVIDES VAGUE ANSWERS AND INDICATES HE IS UNSURE WHEN ASKED ABOUT DME, SERVICES, PCP, OR HEALTH INSURANCE. PT DOES SAY THAT HE LIVES WITH SNOI AND HE DOES NOT BELIEVE HE USES A CANE OR WALKER TO AMBULATE. PT HAS NO INSURANCE LISTED AND DOES NOT THINK HE HAS ANY. IT APPEARS THERE IS A HCP IN [place], HOWEVER CM UNABLE TO OPEN THE DOCUMENT. PT DOES NOT KNOW WHO HIS PCP IS. [facility] IS LISTED ON PTS CHART. CM CAN CONFIRM ON FRIDAY. CURRENTLY DC PLAN IS UNKNOWN. HOME VS HOME WITH [facility]? SON TO TRANSPORT CM WILL CONTINUE TO TRY TO CONTACT PTS SON AND VERIFY PTS PCP WITH [facility] ON 12/26/20
[2020-12-25] MEDS: 0.9 % Sodium Chloride Flush 3 ML SYRINGE IVFLUSH (17:18)
[2020-12-25] MEDS: cefTRIAXone sodium 1 GM in 0.9 % Sodium Chloride 50 ML IV (17:18)
[2020-12-25] MEDS: Azithromycin 500 MG in 0.9 % Sodium Chloride 250 ML IV (21:17)
[2020-12-26] VITALS (9 sets, daily range): BP systolic 116–160; BP diastolic 63–82; PULSE 50–75; RESP 18–20; TEMP 35.9–36.6; O2SAT 94–99; BMI 18.9
[2020-12-26] MEDS: Docusate Sodium 100 MG CAPSULE PO ×2 (09:11→21:57)
--- NOTE | 2020-12-26 10:39 | MHC.SLORD ---
Speech Language Pathology Order Status: COMMUNITY RELATIONS ADVISOR checked in with RN this morning. Pt is reportedly tolerating unmodified diet without difficulty. Per RN, pt ate sausage and eggs this morning with no overt s/s aspiration. COMMUNITY RELATIONS ADVISOR will continue to follow as appropriate.
--- NOTE | 2020-12-26 12:22 | HO.PM.IMPN ---
Subjective Subjective Date of Service: 12/26/20 Interval History: seen in f/u for respiratory failure, no new complaint, no sob, looks good today Review of Systems Gen: no fever Resp: no sob, no cough CV: no chest, no LOPEZ, no leg edema GI: No n/v, no abd pain Neuro: confusion Physical Exam Vital Signs: Vital Signs: Last Vital Signs Temp 96.6 F L 12/26/20 11:04 Pulse 57 12/26/20 11:04 Resp 18 12/26/20 11:04 BP 116/63 12/26/20 11:04 Pulse Ox 95 12/26/20 11:04 Body Mass Index 19.1 Const: Other: General: AO X 1 self, no acute distress Resp: CTA bilateral CVS: S1,S2,RRR GI: +BS, NT, no distention Skin: No rash Neuro: motor grossly intact Psych: appropriate affect Objective Data Current Medications Generic Name Dose Route Start Last Admin Trade Name Freq PRN Reason Stop Dose Admin Acetaminophen 650 mg 12/23/20 19:25 Acetaminophen 325 Mg Tablet PO Q6H PRN Pain, Mild (Pain Scale 1-3) Albuterol/Ipratropium 3 ml 12/23/20 19:25 Albuterol/Iprat 2.5/0.5mg 3 Ml Ampul.Neb INHALE RQ4H WHILE AWAKE PRN Shortness of Breath/Wheezing Docusate Sodium 100 mg 12/23/20 21:00 12/26/20 09:11 Docusate Sodium 100 Mg Capsule PO 100 mg BID KARLIE Administration Azithromycin 500 mg/ Sodium 250 mls @ 125 mls/hr 12/24/20 20:00 12/25/20 22:16 Chloride IV Infused Q24H KARLIE Infusion Sodium Chloride 1,000 mls @ 50 mls/hr 12/23/20 19:30 12/26/20 09:59 Ns IVCONT Not Given .Q20H KARLIE Ceftriaxone Sodium 1 gm/ 50 mls @ 100 mls/hr 12/24/20 16:00 12/25/20 17:48 Sodium Chloride IV Infused Q24H KARLIE Infusion Magnesium Hydroxide 30 ml 12/23/20 19:25 Milk Of Magnesia 30 Ml Oral.Susp PO DAILY PRN Constipation Senna 17.2 mg 12/23/20 19:25 Sennosides 8.6 Mg Tablet PO BEDTIME PRN Constipation Sodium Chloride 3 ml 12/24/20 00:00 12/26/20 09:16 0.9 % Sodium Chloride Flush 3 Ml Syringe IVFLUSH Not Given QSHIFT KARLIE Labs CBC & Chem 7: 12/24/20 05:54 12/24/20 05:54 Microbiology Microbiology Results: Microbiology 12/23/20 16:22 Blood - Venous Blood Culture - Preliminary No growth after 48 hours. 12/23/20 16:22 Blood - Venous Blood Culture - Preliminary No growth after 48 hours. Assessment and Plan (1) Pneumonia: Status: Acute Assessment and Plan: 75-year-old male with a past medical history of dementia, orthostatic hypotension presented to the hospital with a chief complaint of shortness of breath and cough. Noted to have pneumonia. Shortness of breath due to pneumonia. CT showed no evidence of pulmonary embolism. EKG nonischemic. BNP is normal. Hold off doing echo Troponin negative. COVID negative. normal TSH Bilateral pneumonia: Change to Po Augmentin Acute hypoxic respiratory failure: Secondary to pneumonia. Resolved, sating 95 on room air Fall: Unwitnessed. Patient denies any loss of consciousness. Complains of the hip pain but CT negative for any acute fracture. CT head showed no acute intracranial process. Nonfocal exam. CT C-spine showed no acute fracture. PT recommends STR Reportedly patient has history of orthostatic hypotension and has dizzy spells at home, uses wheelchair for son. Orthostatic vitals PT/OT Mild ADA: Gentle IV fluids. Avoid nephrotoxins. DVT prophylaxis: SCD boots Code status: Full code
--- NOTE | 2020-12-26 15:11 | MHC.CM.PN ---
called and left messages for pts son/hcp andie .. sons mailbox is now full attempted to call second proxy listed and the wrong number is listed on proxy for daljit then proceeded to call [place] [employer] to a wellness check on son at the pts home ,where son also lives,when speaking to control systems drafting officer after giving sons name he confirmed that son was okay ,he could give no more imfo than that explined that we need to speak with him akil..
[2020-12-26] MEDS: cefTRIAXone sodium 1 GM in 0.9 % Sodium Chloride 50 ML IV (16:21)
[2020-12-26] MEDS: 0.9 % Sodium Chloride 1,000 ML 50 ML IVCONT (18:17)
[2020-12-26] MEDS: Acetaminophen 325 MG TABLET 650 MG PO (21:57)
[2020-12-26] MEDS: Azithromycin 500 MG in 0.9 % Sodium Chloride 250 ML 125 MG IV (21:58)
[2020-12-26] MEDS: 0.9 % Sodium Chloride Flush 3 ML SYRINGE IVFLUSH (21:58)
[2020-12-26] MEDS: Haloperidol Lactate 5 MG/ML VIAL 2.5 MG IVPUSH (22:44)
[2020-12-27] VITALS (7 sets, daily range): BP systolic 108–171; BP diastolic 54–78; PULSE 61–90; RESP 16–18; TEMP 36–37; O2SAT 94–98
[2020-12-27] MEDS: 0.9 % Sodium Chloride Flush 3 ML SYRINGE IVFLUSH (08:02)
[2020-12-27] MEDS: Docusate Sodium 100 MG CAPSULE PO (08:02)
--- NOTE | 2020-12-27 09:42 | MHC.SLORD ---
Speech Language Pathology Order Status: SINGE WINDER attempted to see pt this morning, however pt was sleeping upon arrival. Per RN, pt tolerated entire breakfast with no overt s/s aspiration. Pt appears to be on appropriate diet consistency at this time. Continue to recommend regular solids and thin liquids with pills whole in liquid. Dysphagia therapy is no longer warranted at this level of care. Please re-refer if pt's condition changes or if SINGE WINDER can be of further assistance.
--- NOTE | 2020-12-27 11:37 | PM.DS ---
DS: Providers Provider Date of Service: 12/27/20 Date of admission: 12/23/20 19:26 Primary care physician: [facility] DS: Diagnosis Discharge Diagnosis (1) Pneumonia: Status: Acute DS: Summary Hospital Course Hospital Course: 75-year-old male with a past medical history of dementia, orthostatic hypotension presented to the hospital with a chief complaint of cough and shortness of breath. Most of the history obtained from the patient, patient is on dizzy, ER staff. Reportedly patient had a fall about 3 days ago mentions that he has been complaining of the back pain. As per the patient's and patient intermittently has dizzy spells. Uses feels it mostly. But able to get around the house okay. Today patient complained of cough and shortness of breath to the son and subsequently called EMS and sent to the ER for further evaluation. Denies any chest pain palpitations lightheadedness dizziness. Denies any numbness tingling. Denies any nausea vomiting or diarrhea. Per patient's son patient does not have any trouble swallowing. Family reported that patient does not like to go to hospitals or doctors and does not take any medications at home. Review of all other systems is negative except mentioned above ER course: Per ER team patient noted nonfocal exam and found to be hypoxic to 83% on presentation; placed on 2 L of supplemental oxygen with oxygenation improved to 96%. Patient was not in respiratory distress. CT angio of the chest was done which showed no evidence of pulmonary embolism but noted bilateral pneumonia. Patient was started on ceftriaxone and azithromycin. Admitted to the hospital for further management. Patient also complained of the left hip pain-CT of the hip showed no evidence of fracture. CT head and CT C-spine showed no evidence of acute findings. EKG was nonischemic, troponin negative. Blood pressure on the soft side-given IV fluids. Hospital course: Patient was admitted for pneumonia and treated with Ceftriaxone and Azithromycin. He has been afebril, no hypoxia, WBC within normal will transition to oral Augmentin for 5 more days. He was evaluated by speech no obvious aspiration. He had mild ADA that corrected with IV. He has been evaluated by Physical therapy and is recommended for short term rehab that son agree with . Although no formal diagnosis of dementia on the record, the patient has what appeared to be moderate to advanced a dementia likely Alzheimer's type and this can be further evaluated on outpatient basis. Time Spent with Patient Time attestation: Total time spent providing and/or coordinating discharge services: Discharge coordination time: Greater than 30 minutes Quality: Stroke Does the patient have a stroke diagnosis?: No Physical Exam Vital Signs: Vital Signs: Last Vital Signs Temp 97.4 F 12/27/20 11:16 Pulse 61 12/27/20 11:16 Resp 18 12/27/20 11:16 BP 108/54 L 12/27/20 11:16 Pulse Ox 97 12/27/20 11:16 Body Mass Index 18.9 Const: Other: General: AO X 1 self, no acute distress Resp: CTA bilateral CVS: S1,S2,RRR GI: +BS, NT, no distention Skin: No rash Neuro: motor grossly intact Psych: appropriate affect DS: Data Data Completed and Pending Labs on day of discharge: Preliminary micro results at discharge 12/23/20 16:22 Blood Culture - Preliminary Blood - Venous No growth after 48 hours. 12/23/20 16:22 Blood Culture - Preliminary Blood - Venous No growth after 48 hours. Discharge Plan Discharge Anticipated Discharge Date/Time: 12/27/20 11:36 Patient Disposition: Xfer SNF Discharge Diagnosis: Pneumonia Referrals: [facility] [Other] - [facility] Center,[facility] [Primary Care Provider] - 1 Week Discharge Medications: New sennosides [Senna Lax] 8.6 mg Tablet 17.2 mg PO BEDTIME PRN (Reason: Constipation) Qty: 30 RF: 0 docusate sodium 100 mg Capsule 100 mg PO BID Qty: 30 RF: 0 amoxicillin-pot clavulanate [Augmentin] 500-125 mg tablet 1 tab PO BID Qty: 10 RF: 0 Discharge Orders: Discharge Order (Routine); Ordered 12/27/20 Ordered By: Harpal Ferrara Diet: advance to usual diet Activity on Discharge: As tolerated Stand Alone Forms: Patient Portal Discharge page Care Plan Goals: full recovery from pneumonia Health Concerns: pneumonia Plan of Treatment: Take Augmentin as recommended and to go to short term rehab Assessment: See above Discharge Date/Time: 12/27/20 15:56
--- NOTE | 2020-12-27 13:16 | MHC.CM.PN ---
pts son signed pt into [facility] pt to leave at 2:30 to [facility]
[2020-12-27 13:38] LABS: Anion Gap 12 (12-20); Blood Urea Nitrogen 18 mg/dL (9-16); Calcium 8.3 mg/dL (8.4-10.2); Carbon Dioxide 26 mmol/L (22-29); Chloride 108 mmol/L (96-108); Creatinine Clr Calc Pharmacy 65.5; Estimated Glomerular Filt Rate > 60; Glucose Random 105 mg/dL (60-115); Magnesium 1.8 mg/dL (1.6-2.6); Sodium 142 mmol/L (135-145)
[2020-12-27 16:00] LABS: COVID-19 Test Negative (Negative); IDNOW Serial# 9DD0AD1C
== END 2020-12-27 15:56 | disposition skilled nursing facility (03) | DRG 193 ==
LOC: HO.ED 19:17 → HO.IMC 19:41
PROVIDERS: Physician Assistant; Admitting Provider Hospitalist; Emergency Provider Internal Medicine; Visit Provider Internal Medicine
DX: J18.9 Pneumonia, unspecified organism (principal); J96.01 Acute respiratory failure with hypoxia; N17.9 Acute kidney failure, unspecified; F03.90 Unspecified dementia, unspecified severity, without behavioral disturbance, psychotic disturbance, mood disturbance, and anxiety; Z20.822 Contact with and (suspected) exposure to COVID-19; Z79.899 Other long term (current) drug therapy
CPT/HCPCS: 0241U; 36415; 70450; 71045; 71275; 72125; 72192; 73502; 80048; 80061; 80076; 83036; 83605; 83735; 83880; 84443; 84484; 85007; 85025; 85027; 85610; 85730; 87040; 87635; 92610; 93005; 94640; 96365; 96366; 96367; 97110; 97116; 97161; 97166; 97535; 99284; 99285; J0456; J0696; Q9967

== ENCOUNTER 2021-05-23 16:19 | Inpatient (IN) | payer MEDICARE, SELFPAY ==
--- NOTE | ~2021-05-23 | XR_ITS ---
EXAMINATION: XR CHEST CLINICAL INFORMATION: Covid infection COMPARISON: Previous chest x-rays most recent May 2021 TECHNIQUE: Frontal view of the chest was obtained. FINDINGS: The cardiac and mediastinal contours are stable. There are are bilateral multilobar infiltrates. This appears slightly improved compared to May 2021 exam at the right lung base. Other areas appear new. The lung volumes are low. There is no pleural effusion or pneumothorax. There is evidence of old trauma to the right proximal humerus, right distal clavicle and left coracoclavicular ligament. XR/XR chest 1V IMPRESSION: Low lung volumes and bilateral infiltrates compatible with Covid infection.
--- NOTE | ~2021-05-23 | CT_ITS ---
EXAMINATION: CT HEAD WITHOUT CONTRAST CLINICAL INFORMATION: Altered mental status. COMPARISON: CT head dated from 12/23/2020. TECHNIQUE: Contiguous axial imaging was performed from the skull base to vertex without intravenous administration of contrast. This CT examination was performed using dose optimization techniques as appropriate, variously including the following: *Automated exposure control *Adjustment of mA and/or kV according to patient size (this includes techniques or standardized protocols for targeted exams where dose is matched to indication/reason for exam; i.e. extremities or head) *Use of iterative reconstruction technique DLP: 326 mGy-cm FINDINGS: There is no evidence of acute intracranial hemorrhage or edematous territorial infarction. Scattered hypoattenuation in the periventricular and deep white matter are consistent with moderate microangiopathy. There are chronic bilateral lacunar infarcts. Gross-white matter differentiation is preserved. Proportional prominence of the ventricles and sulcal spaces. No evidence for obstructive hydrocephalus. No abnormal mass effect or midline shift. No extra-axial fluid collections. No acute soft tissue or osseous abnormalities. Redemonstration of complete opacification of the right maxillary sinus with associated sclerosis and thinning of its maxillary nichols. Its contents are heterogeneous with some hyperattenuating debris. There is layering material within the right sphenoidal sinus and mucosal thickening of several ethmoid air cells, more prominent on the right side. The mastoids are clear. CT/CT head/brain wo con IMPRESSION: 1. No evidence of acute intracranial hemorrhage or edematous territorial infarction. 2. 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 3. Redemonstration of complete opacification of the right maxillary sinus with associated bony remodeling.
--- NOTE | ~2021-05-23 | XR_ITS ---
EXAMINATION: XR CHEST CLINICAL INFORMATION: Cough. COMPARISON: Chest radiograph dated from 05/23/2021. TECHNIQUE: AP view of the chest was obtained. FINDINGS: Unchanged appearance of the cardiomediastinal silhouette. There are new airspace opacities in the right lung base. There is blunting of the left costophrenic angle which may be due to pleural thickening or trace pleural effusion. No pneumothorax. Chronic right humeral fracture with associated bone remodeling. No acute osseous abnormalities. XR/XR chest 1V IMPRESSION: New airspace opacities in the right lung base worrisome for focal pneumonia or aspiration. Recommend a follow-up to ensure resolution. Questionable small left pleural effusion versus pleural thickening.
--- NOTE | ~2021-05-23 | XR_ITS ---
EXAMINATION: XR CHEST CLINICAL INFORMATION: Weakness COMPARISON: 12/23/2020 TECHNIQUE: Frontal view of the chest was obtained. FINDINGS: No acute finding. Lung de leon are comparable to previous. No obvious failure or infiltrate. There is no effusion. The cardiac silhouette is within normal limits. Chronic change at the right medial base XR/XR chest 1V IMPRESSION: No acute finding
[2021-05-23 16:27] VITALS: BP 144/86; BP 173/69; PULSE 50; PULSE 63; RESP 18; TEMP 36.1; O2SAT 100; O2SAT 98; BMI 21.2
--- NOTE | 2021-05-23 16:43 | ED_ITS ---
HPI - General Adult General Chief complaint: General Medical Stated complaint: failure to thrive Time Seen by Provider: 05/23/21 16:43 Source: patient and EMS Mode of arrival: EMS Limitations: altered mental status History of Present Illness HPI narrative: Patient is 75 years old with history of dementia orthostatic hypertension failure to thrive used to live with his son who was picked up by police and is in correction now brought here as no one to take care of him. Patient is severely demented alert oriented x1 ambulates in the night on the street eat whatever food he can get very unkept situation came here for placement. No chest pain no shortness of breath no fever noticed patient has some diarrhea per EMS record. Girlfriend of his son called the EMS as she cannot manage him anymore Related Data Previous Rx's Medication Instructions Recorded amoxicillin 500 mg-potassium 1 tab PO BID #10 tab 12/27/20 clavulanate 125 mg tablet (Augmentin) docusate sodium 100 mg capsule 100 mg PO BID #30 cap 12/27/20 sennosides 8.6 mg tablet (Senna 17.2 mg PO BEDTIME PRN #30 tab 12/27/20 Lax) Allergies Allergy/AdvReac Type Severity Reaction Status Date / Time No Known Allergies Allergy Verified 12/24/20 08:35 [No Known Allergies*] Review of Systems Review of Systems: Yes Unobtainable due to mental status PMFSH Social History Social History Household Members: Unknown / Unable to assess Housing: Unknown / Unable to assess Unable to assess alcohol history related to: Unknown Patient Tobacco Use Status: Tobacco use Unknown Advance Directives: Yes Advance Directives on File: Yes Advance Directives Date on File: 12/28/20 Current occupational status: retired Physical Exam Vital Signs: Vital Signs: Last Vital Signs Temp 97.6 F 05/23/21 22:22 Pulse 82 05/23/21 22:22 Resp 18 05/23/21 22:22 BP 150/97 H 05/23/21 22:22 Pulse Ox 98 05/23/21 22:22 Body Mass Index 21.2 Appearance: Alert. Oriented X1-2 No acute distress. Very unkept condition Eyes: Pallor+ ENT: Pharynx normal. Oral Mucosa moist Neck: Normal inspection. Neck supple. CVS: Normal heart rate and rhythm, frequent extra beats Pulses normal. Respiratory: No respiratory distress. Equal air entry bilateral, no wheezing/rales/rhonchi Abdomen: Soft and nontender. Bowel sounds are present, no mass palpable, no CVA tenderness Skin: Skin warm and dry. Normal skin color. Normal skin turgor. Extremities: No lower extremity edema. No calf tenderness Neuro: Oriented X1-2 no focal deficit Medical Decision Making MDM Narrative Medical decision making narrative: Patient with dementia unable to manage at home case management consulted plan for group home placement patient EKG showed bigeminy without any ischemic changes previous EKG showed PVCs. Patient denied any chest pain. Cardiac monitoring showed normal sinus rhythm with occasional PVCs patient medically cleared for senior care placement Lab Data Lab results reviewed: Yes I reviewed the patient's lab results. Result diagrams: 05/23/21 17:22 05/23/21 17:21 Labs: Lab Results 05/23/21 05/23/21 05/23/21 Range/Units 17:21 17:21 17:22 WBC 5.9 (4.8-10.8) X10*3/uL RBC 4.05 L (4.60-5.80) X10*6/uL Hgb 12.3 L (14.0-18.0) g/dl Hct 38.4 L (42-52) % MCV 94.8 (80-98) fL MCH 30.4 (27.0-33.0) pg MCHC 32.0 (31.0-36.0) g/dl RDW 14.0 (11.0-16.0) % Plt Count 149 L (160-400) X10*3/uL MPV 12.5 H (9.4-12.4) fL Immature Gran % (Auto) 0.2 (0.0-0.4) % Neut % (Auto) 66.0 (45-73) % Lymph % (Auto) 22.9 (20-40) % Haskell % (Auto) 9.2 (2-11) % Eos % (Auto) 1.5 (0-4) % Baso % (Auto) 0.2 (0-2) % Lymph # (Auto) 1.4 (1.2-4.9) X10*3/uL Haskell # (Auto) 0.5 (0.1-1.2) X10*3/uL Eos # (Auto) 0.1 (0.0-0.4) X10*3/uL Baso # (Auto) 0.0 (0.0-0.2) X10*3/uL Abs Immat Gran (auto) 0.01 (0.00-0.03) X10*3/uL Absolute Neuts (auto) 3.9 (2.0-8.3) X10*3/uL Absolute Nucleated RBC 0.000 (0.0-0.012) X10*3/uL Nucleated RBC % (auto) 0.0 (0.0-0.2) /100WBC Sodium 142 (135-145) mmol/L Potassium 3.5 (3.3-5.1) mmol/L Chloride 108 (96-108) mmol/L Carbon Dioxide 29 (22-29) mmol/L Anion Gap 9 L (12-20) BUN 35 H D (9-16) mg/dL Creatinine 1.24 (0.5-1.4) mg/dL Estim Creat Clear Calc 44.5 Estimated GFR 57 Random Glucose 125 H (60-115) mg/dL Calcium 8.1 L (8.4-10.2) mg/dL Magnesium 2.2 (1.6-2.6) mg/dL Total Bilirubin 0.4 (0.0-1.0) mg/dL Direct Bilirubin < 0.2 (0.0-0.5) mg/dL AST 12 (5-37) U/L ALT 7 (0-40) U/L Alkaline Phosphatase 121 H (39-117) U/L Total Protein 6.1 L (6.5-8.0) g/dL Albumin 3.7 (3.5-5.0) g/dL Urine Color Urine Appearance Urine pH (5.0-8.0) Ur Specific Mayflower (1.005-1.025) Urine Protein (NEG-TRACE) MG/DL Urine Glucose (UA) (NEG) MG/DL Urine Ketones (NEG) MG/DL Urine Blood (NEG) Urine Nitrite (NEG) Ur Leukocyte Esterase (NEG) COVID-19 (JENNIFER) Negative (Negative) COVID-19 Clin Com See Note 05/23/21 Range/Units 19:32 WBC (4.8-10.8) X10*3/uL RBC (4.60-5.80) X10*6/uL Hgb (14.0-18.0) g/dl Hct (42-52) % MCV (80-98) fL MCH (27.0-33.0) pg MCHC (31.0-36.0) g/dl RDW (11.0-16.0) % Plt Count (160-400) X10*3/uL MPV (9.4-12.4) fL Immature Gran % (Auto) (0.0-0.4) % Neut % (Auto) (45-73) % Lymph % (Auto) (20-40) % Haskell % (Auto) (2-11) % Eos % (Auto) (0-4) % Baso % (Auto) (0-2) % Lymph # (Auto) (1.2-4.9) X10*3/uL Haskell # (Auto) (0.1-1.2) X10*3/uL Eos # (Auto) (0.0-0.4) X10*3/uL Baso # (Auto) (0.0-0.2) X10*3/uL Abs Immat Gran (auto) (0.00-0.03) X10*3/uL Absolute Neuts (auto) (2.0-8.3) X10*3/uL Absolute Nucleated RBC (0.0-0.012) X10*3/uL Nucleated RBC % (auto) (0.0-0.2) /100WBC Sodium (135-145) mmol/L Potassium (3.3-5.1) mmol/L Chloride (96-108) mmol/L Carbon Dioxide (22-29) mmol/L Anion Gap (12-20) BUN (9-16) mg/dL Creatinine (0.5-1.4) mg/dL Estim Creat Clear Calc Estimated GFR Random Glucose (60-115) mg/dL Calcium (8.4-10.2) mg/dL Magnesium (1.6-2.6) mg/dL Total Bilirubin (0.0-1.0) mg/dL Direct Bilirubin (0.0-0.5) mg/dL AST (5-37) U/L ALT (0-40) U/L Alkaline Phosphatase (39-117) U/L Total Protein (6.5-8.0) g/dL Albumin (3.5-5.0) g/dL Urine Color YELLOW Urine Appearance CLEAR Urine pH 6.0 (5.0-8.0) Ur Specific Mayflower >= 1.030 H (1.005-1.025) Urine Protein NEG (NEG-TRACE) MG/DL Urine Glucose (UA) NEG (NEG) MG/DL Urine Ketones NEG (NEG) MG/DL Urine Blood NEG (NEG) Urine Nitrite NEG (NEG) Ur Leukocyte Esterase NEG (NEG) COVID-19 (JENNIFER) (Negative) COVID-19 Clin Com ECG Data Attestation: I personally reviewed and interpreted this ECG as follows: Interpretation: Normal sinus rhythm with frequent PVCs in bigeminy no acute ischemic changes Discharge Plan Discharge Clinical Impression: Adult failure to thrive Dementia Qualifiers: Dementia type: Alzheimer's Alzheimer's disease onset: late-onset Dementia behavioral disturbance: without behavioral disturbance Qualified Code(s): G30.1 - Alzheimer's disease with late onset Prescriptions: No Action sennosides [Senna Lax] 8.6 mg Tablet 17.2 mg PO BEDTIME PRN (Reason: Constipation) Qty: 30 RF: 0 docusate sodium 100 mg Capsule 100 mg PO BID Qty: 30 RF: 0 amoxicillin-pot clavulanate [Augmentin] 500-125 mg tablet 1 tab PO BID Qty: 10 RF: 0
--- NOTE | 2021-05-23 16:57 | ECG_ITS ---
Test Reason : Failure to Thrive Blood Pressure : / mmHG Vent. Rate : 064 BPM Atrial Rate : 064 BPM P-R Int : 118 ms QRS Dur : 086 ms QT Int : 428 ms P-R-T Axes : 030 031 139 degrees QTc Int : 441 ms Sinus rhythm with frequent Premature ventricular complexes in a pattern of bigeminy Nonspecific T wave abnormality Abnormal ECG Heart rate has decreased T wave inversion now evident in Lateral leads Premature ventricular complexes More frequent in a pattern of bigeminy is new Referred By: Ifeanyi Louis Electronically Signed By:ADILIA RUBIO MD
[2021-05-23 17:26] LABS: MANUAL DIFF FLAG NO
[2021-05-23 17:27] LABS: Basophils Percent Auto 0.2 % (0-2); Eosinophils Absolute Auto 0.1 X10*3/uL (0.0-0.4); Eosinophils Percent Auto 1.5 % (0-4); Hematocrit 38.4 % (42-52); Hemoglobin 12.3 g/dl (14.0-18.0); Imm Gran Abs Auto 0.01 X10*3/uL (0.00-0.03); Imm Gran Pct Auto 0.2 % (0.0-0.4); Lymphocytes Absolute Auto 1.4 X10*3/uL (1.2-4.9); Lymphocytes Percent Auto 22.9 % (20-40); Mean Corpuscular Hemoglobin 30.4 pg (27.0-33.0); Mean Corpuscular Volume 94.8 fL (80-98); Mean Platelet Volume 12.5 fL (9.4-12.4); Monocytes Absolute Auto 0.5 X10*3/uL (0.1-1.2); Monocytes Percent Auto 9.2 % (2-11); Neutrophils Absolute Auto 3.9 X10*3/uL (2.0-8.3); Platelet Count 149 X10*3/uL (160-400); Red Blood Count 4.05 X10*6/uL (4.60-5.80); White Blood Count 5.9 X10*3/uL (4.8-10.8)
[2021-05-23 17:45] LABS: COVID-19 Test Negative (Negative)
[2021-05-23 17:46] LABS: Alanine Aminotransferase 7 U/L (0-40); Albumin Level 3.7 g/dL (3.5-5.0); Alkaline Phosphatase 121 U/L (39-117); Anion Gap 9 (12-20); Aspartate Amino Transferase 12 U/L (5-37); Bilirubin Direct < 0.2 mg/dL (0.0-0.5); Bilirubin Total 0.4 mg/dL (0.0-1.0); Blood Urea Nitrogen 35 mg/dL (9-16); Calcium 8.1 mg/dL (8.4-10.2); Carbon Dioxide 29 mmol/L (22-29); Chloride 108 mmol/L (96-108); Creatinine Clr Calc Pharmacy 44.5; Estimated Glomerular Filt Rate 57; Glucose Random 125 mg/dL (60-115); Magnesium 2.2 mg/dL (1.6-2.6); Potassium 3.5 mmol/L (3.3-5.1); Sodium 142 mmol/L (135-145); Total Protein 6.1 g/dL (6.5-8.0)
--- NOTE | 2021-05-23 17:51 | MHC.CM.ED ---
Addendum entered by Aggie Duval 05/23/21 21:23: Pt work-up is negative. Dr. Mak will order a PT evaluation. CM will reach out to [facility] for any pt contact information in am. CM will speak with [facility] in the am. D/C plan is STR transitioning to LTC. Unable to reach any family/contacts at this time. CM to follow for d/c needs. Original Note: Pt brought in by [facility]. Failure to thrive. Lives in home with . Pt with advanced dementia. Per Gopal Padding Machine Operator with [facility], pt son and girlfriend and another friend were caring for the patient and his , who is bedbound. Pt had diarrhea today and pt bedroom with feces on floor. Gopal tells CM that pt son, Anant Mak is in half-way. Pt is known to [facility], as he is known to wander in the street and known to eat raw meat. Gopal will file with Elder protective services. CM suggested that Gopal also file regarding pt , as she is also being cared for by the same individuals. Pt is very unkempt, with poor feet hygiene. Patient unable to provide any history secondary to advanced dementia. HCP on file. HCP/SON Anant ([phone]) and Esthela Myers ([phone]). Both numbers called and messages left to return call. No contact information for patient's . Old record reviewed and no additional telephone numbers available or other contacts. Pt's medical work-up is pending. Gopal tells CM that care providers cannot care for the patient any longer. Pt was recently discharged from [facility] on 09/17/20. Will call in am to request any other contact information they may have. CM will follow for d/c needs.
[2021-05-23] MEDS: 0.9 % Sodium Chloride 1,000 ML 999 ML IVCONT (17:58)
--- NOTE | 2021-05-23 18:59 | PC.NURSE ---
pt given sandwich with drink
[2021-05-23 19:31] VITALS: BP 142/68; PULSE 72; RESP 18; TEMP 36.1; O2SAT 98
[2021-05-23 19:57] LABS: Appearance Urine CLEAR; Color Urine YELLOW; Glucose Urine UA NEG (NEG); Leukocyte Esterase Urine NEG (NEG); Nitrite Urine NEG (NEG); Specific Gravity - Urine >= 1.030 (1.005-1.025); Urine Blood NEG (NEG); Urine Ketones NEG (NEG); Urine Protein NEG (NEG-TRACE)
[2021-05-23 22:22] VITALS: BP 150/97; PULSE 82; RESP 18; TEMP 36.4; O2SAT 98
[2021-05-24] VITALS (12 sets, daily range): BP systolic 125–169; BP diastolic 53–80; PULSE 56–71; RESP 14–20; TEMP 36.3–37.1; O2SAT 96–100
--- NOTE | 2021-05-24 00:58 | PC.NURSE ---
pt repositioned, pt clean and dry. Will continue to monitor.
--- NOTE | 2021-05-24 03:20 | PC.NURSE ---
pt resting at this time, warm blanket given.
[2021-05-24] MEDS: risperiDONE 0.5 MG TABLET PO (04:29)
[2021-05-24] MEDS: LORazepam 1 MG TABLET PO ×2 (05:56→20:54)
--- NOTE | 2021-05-24 06:02 | PC.NURSE ---
pt confused and often having to be redirected. Medicated per mar
--- NOTE | 2021-05-24 08:20 | PHA.MEDREC ---
Pharmacy Consult ? Medication Reconciliation Pharmacy has completed the medication reconciliation. Patient is unaware of the medications he might be taking, he has no external fill history and his contact is not reachable.
--- NOTE | 2021-05-24 09:34 | MHC.CM.ED ---
Patient remains in ER. Patient has a trimming caser, Mini Newman at [facility]. Left voicemail requesting return telephone call. Left voicemail at patient's home, , requesting return telephone call. Will continue to try to reach family.
--- NOTE | 2021-05-24 10:43 | MHC.CM.ED ---
Addendum entered by Giulia Wright 05/24/21 13:44: Received notification that Anant will be incarcerated for 90 days. Original Note: Received telephone call from Sabine Jeramie. She is Anant's girlfriend. She can be reached via telephone at [phone]. She has been taking care of Carolyn and patient. Anant was arrested on Friday. He is supposed to be incarcerated for 90 days due to violating a no ETOH use order. He has court today. Sabine is able to care for Carolyn because she is bedbound. Xu has been getting more confused. He is a wander risk and is frequently confused. She is not sure she can care for patient at this time. Continue to monitor for d/c needs.
--- NOTE | 2021-05-24 10:50 | PC.NURSE ---
Physical therapy at bedside for eval
--- NOTE | 2021-05-24 13:50 | MHC.CM.ED ---
Received telephone call from Dialysis Biomed Technician Mahamed Montero. He is Anant Mak's salon professional. He confirms Anant will be incarcerated for 90 days. Dialysis Biomed Technician Winston will be willing to get any paperwork signed by Anant for placement. Dialysis Biomed Technician Winston is aware placement hasn't been found yet. Continue to monitor for d/c needs.
--- NOTE | 2021-05-24 19:48 | PC.NURSE ---
washed PT up for bed. shampooed hair. oral and back care given. lotion and barrier cream applied. PT restless gave warm blanket and minimized lights and noise
[2021-05-24] MEDS: risperiDONE 1 MG TABLET PO (20:55)
--- NOTE | 2021-05-24 20:56 | PC.NURSE ---
pt restless. Risperdal and Ativan ordered and given per MAR, pt A&O to person only.
--- NOTE | 2021-05-24 23:30 | PC.NURSE ---
pt Alert but confused. Pt is restless. 1:1 for safety.
[2021-05-24] MEDS: OLANZapine 2.5 MG TABLET PO (23:59)
--- NOTE | 2021-05-25 00:09 | PC.NURSE ---
Medicated per mar for agitation. pt still 1:1
--- NOTE | 2021-05-25 00:41 | PC.NURSE ---
pt changed into a hospital bed. pt bed alarm in place.
[2021-05-25 00:44] VITALS: RESP 16
[2021-05-25 02:39] VITALS: RESP 12
--- NOTE | 2021-05-25 02:39 | PC.NURSE ---
pt is sleeping at this time.
[2021-05-25] MEDS: OLANZapine 2.5 MG TABLET PO (05:59)
--- NOTE | 2021-05-25 06:04 | PC.NURSE ---
pt continues to be confused and agitated. medicated per mar. pt had complete bed change. loretta care clean, dry and intact.
--- NOTE | 2021-05-25 06:14 | PC.NURSE ---
pt is repositioned at this time.
[2021-05-25 06:16] VITALS: BP 142/68; PULSE 73; RESP 16; O2SAT 95
[2021-05-25 07:39] VITALS: BP 137/78; PULSE 84; RESP 14; O2SAT 95
--- NOTE | 2021-05-25 09:53 | MHC.CM.ED ---
Patient remains in ER. No bed offers made yet. Referrals broadcasted within 50 miles of patient's home. Continue to monitor for d/c needs.
--- NOTE | 2021-05-25 11:43 | PC.NURSE ---
PT CONTINUES TO BE CONFUSED AND AT TIMES AGITATED, HE IS ATTEMPTING TO GET OUT OF BED AND UNDRESSING. HE IS POORLY REDIRECTED. CHUCK AWARE AND MEDICATIONS HAVE BEEN ORDERED,
[2021-05-25] MEDS: LORazepam 1 MG TABLET PO (11:51)
[2021-05-25 11:54] VITALS: BP 132/82; PULSE 84; RESP 14; O2SAT 97
--- NOTE | 2021-05-25 15:40 | MHC.CM.ED ---
Received telephone call from Mini at [facility]. Patient and are active with their agency. However, anytime they have tried to get services in the home, no one has answered the door or picked up the phone. Cele's telephone information provided to Mini. Continue to monitor for d/c needs.
[2021-05-25 16:37] VITALS: BP 122/55; PULSE 75; RESP 14; O2SAT 96
--- NOTE | 2021-05-25 18:40 | PC.NURSE ---
The pt has been resting in bed throughout my shift today. He has remained alert, confused to person, place and time. He does not follow all commands, others he does follow. He requires 1 assist with meals. He resists eating and drinking but I have been able to help him take PO fluids and some food throughout the day. The pt has been turned and repositioned numerous times and has required frequent re-directing and reminding to remain in his hospital bed. I was able to assist the pt OOB to stand x 1 today - he was able to bear about 50% of his weight but was unable to stand without assistance. He required 1 max assist to stand at bedside. Linens changed. Pt is HEADLEY x4. VSS. pt makes eye contact with RN. Respirations are spontaneous and non-labored. Will continue to monitor.
--- NOTE | 2021-05-25 22:01 | PC.NURSE ---
PT GIVEN SANDWICH AND DRINK. Assisted with sitter
--- NOTE | 2021-05-26 00:14 | PC.NURSE ---
Patient in bed awake continuously trying to climb out of bed, patient is being watched on 1:1 for safety, will continue to monitor.
[2021-05-26 04:02] VITALS: RESP 16
[2021-05-26 05:55] VITALS: BP 105/75; PULSE 91; RESP 16; O2SAT 93
--- NOTE | 2021-05-26 06:00 | PC.NURSE ---
Patient slept adequate, behavior at baseline, no distress observed/reported, elimination intact, disposition status quo/case management, will continue to monitor.
[2021-05-26 07:52] VITALS: BP 116/73; PULSE 86; RESP 18; TEMP 36.7; O2SAT 95
[2021-05-26] MEDS: OLANZapine 5 MG TABLET PO (08:26)
--- NOTE | 2021-05-26 08:29 | PC.NURSE ---
frquent need for redirection and safe positioning in bed. pt does no keep clothing on. full assist for breakfast. coordination is poor. junky wet cough since before taking PO. awaits psych consult for medication.
[2021-05-26 13:21] VITALS: BP 113/74; PULSE 108; RESP 14; O2SAT 92
--- NOTE | 2021-05-27 05:57 | PC.NURSE ---
Patient slept through the night, no distress observed/reported, disposition status quo case management bed search, no behavior concerns at this time, will continue to monitor.
--- NOTE | 2021-05-27 07:24 | PC.NURSE ---
Report recieved from Alirio WATSON, pt currently sleeping comfortably. PT is case management bedsearch.
[2021-05-27 12:29] VITALS: BP 152/66; RESP 16
[2021-05-27 18:46] VITALS: BP 153/73; PULSE 74; RESP 18; TEMP 37.1; O2SAT 93
[2021-05-28 00:48] VITALS: RESP 16
--- NOTE | 2021-05-28 04:07 | PC.NURSE ---
pt is currently asleep, respirations even and unlabored.
[2021-05-28 06:02] VITALS: BP 116/79; PULSE 87; RESP 23; O2SAT 96
[2021-05-28 06:03] VITALS: RESP 18
--- NOTE | 2021-05-28 07:37 | PC.NURSE ---
confused, ate a small amt of breakfast
--- NOTE | 2021-05-28 09:25 | MHC.CM.ED ---
Addendum entered by Giulia Wright 05/28/21 12:52: Clinical updates sent to Faizan Craig. Left voicemals at [facility] and [facility]. Original Note: Patient remains in ER. Psych consult for medication recommendations was ordered on Friday. Does not appear patient has been seen yet. M5 contacted. Shad Parekh will be covering consults for the ER today. Made aware of consult via [employer]. Continue to monitor for d/c needs.
--- NOTE | 2021-05-28 13:47 | MHC.CM.ED ---
Referral broadcasted within 200 miles of patient's residence within the [facility]. Continue to monitor for d/c needs.
--- NOTE | 2021-05-28 14:27 | PM.PSYCN ---
History of Present Illness Date of Service: 05/28/21 Chief Complaint: failure to thrive Reason for Consult: agitation in dementia HPI Narrative: per 05/23 ED MD note: Patient is 75 years old with history of dementia orthostatic hypertension failure to thrive used to live with his son who was picked up by police and is in [facility] now brought here as no one to take care of him.? Patient is severely demented alert oriented x1 ambulates in the night on the street eat whatever food he can get very unkept situation came here for placement.? No chest pain no shortness of breath no fever noticed patient has some diarrhea per EMS record.? Girlfriend of? his son called the EMS as she cannot manage him anymore. per subsequent addenda, pt has been intermittently agitated. risperidone, ativan, and zyprexa have been used to treat the agitation with some success; doses used are unknown. psychiatry was consulted for medication recommendations. on interview with pt, pt presented as hard of hearing and often responding with tangential or non-sensical answers. such responses appeared to be out of proportion to level of hearing impairment. pt was oriented to person only. essentially no cogent history or answers were able to be elicited from him. Past Psychiatric History: dementia, per chart Medical Evaluation Reviewed: Yes Personal & Social History: as contained in HPI [facility] Family History: unknown Social History: as per HPI Substance History: unknown Trauma History: unknown Diagnostics Vital Signs (24Hr): Vital Signs - 24 hr 05/27/21 18:46 05/28/21 00:48 05/28/21 06:02 Temperature 98.7 F Pulse Rate 74 87 Respiratory Rate 18 16 23 H Blood Pressure 153/73 H 116/79 Pulse Oximetry 93 96 05/28/21 06:03 Temperature Pulse Rate Respiratory Rate 18 Blood Pressure Pulse Oximetry Body Mass Index 21.2 Labs Results: 05/23/21 17:22 05/23/21 17:21 Imaging Radiology Impressions: ITS Impressions Chest X-Ray 05/23/21 16:57 IMPRESSION: No acute finding Mental Status Exam Mental Status Exam Narrative: attempting to sit up in bed in ED, dressed in iggy, disheveled. no PMA/PMR. cooperative with interview to the best of his ability. speech fluent but with paucity of meaning, non-sequiturs for responses. increased amount, nml loudness, decreased latency. thoughts disorganized and incoherent. affect full range, normo-intense, non-labile. no SI/HI/AVH voiced. Medications Medications Current Medications Pharmacy Consult (Consult Rx Perform Med Rec) 1 each MISCELLANE ONCE PRN PRN Reason: Consult order Allergies Allergies Allergy/AdvReac Type Severity Reaction Status Date / Time No Known Allergies Allergy Verified 12/24/20 08:35 [No Known Allergies*] Assessment & Plan Assessment & Plan (1) Dementia with behavioral disturbance: Status: Acute Code(s): F03.91 - Unspecified dementia with behavioral disturbance Assessment and Plan: low dose PRN zyprexa during the day, starting out around 2.5 mg for mild to moderate agitation, is appropriate for this patient. benzos and antihistamines are concerning for increased fall risk or delirium. bedtime dosing might be scheduled at 5 mg to start, increasing by 2.5 mg increments to 10 mg as necessary for non-disrupted sleep. thank you for this consult, let me know if marcuso have any further questions. I spent minutes with the patient and/or on the patient floor today, greater than?50% of which was spent counseling/coordinating care.
[2021-05-28 15:38] VITALS: BP 147/68; PULSE 58; RESP 20; TEMP 36.4; O2SAT 94
[2021-05-29] VITALS (7 sets, daily range): BP systolic 130–184; BP diastolic 63–83; PULSE 62–71; RESP 16–18; TEMP 36.6–36.7; O2SAT 95–96
--- NOTE | 2021-05-29 01:33 | PC.NURSE ---
PT CLEANED, LINENS CHANGED.
--- NOTE | 2021-05-29 03:58 | PC.NURSE ---
pt brought to pod by wheelchair to take shower, pt showered and brushed teeth with two assists.pt bed linens changed. pt resting comfortably at this time.
[2021-05-29] MEDS: LORazepam 0.5 MG TABLET PO (06:07)
--- NOTE | 2021-05-29 09:30 | PC.NURSE ---
pt restless, repositioned in bed. pt continues to be disoriented, asking for his hat and coat to get wood for the house. Wet cough noted, dr. Garcia informed and CXR ordered.
[2021-05-29] MEDS: Piperacillin Sodium/Tazobactam 3.375 GM in 0.9 % Sodium Chloride 50 ML IV ×3 (10:11→23:21)
[2021-05-29 10:14] LABS: Basophils Percent Auto 0.3 % (0-2); Imm Gran Abs Auto 0.02 X10*3/uL (0.00-0.03); Imm Gran Pct Auto 0.3 % (0.0-0.4); Monocytes Absolute Auto 0.5 X10*3/uL (0.1-1.2); Red Blood Count 4.15 X10*6/uL (4.60-5.80)
[2021-05-29 10:16] LABS: Eosinophils Absolute Auto 0.1 X10*3/uL (0.0-0.4); Eosinophils Percent Auto 0.9 % (0-4); Hematocrit 39.5 % (42.0-52.0); Hemoglobin 12.6 g/dl (14.0-18.0); Lymphocytes Percent Auto 15.8 % (20-40); Mean Corpuscular HGB Conc 31.9 g/dl (31.0-36.0); Mean Corpuscular Hemoglobin 30.4 pg (27.0-33.0); Mean Corpuscular Volume 95.2 fL (80.0-98.0); Mean Platelet Volume 12.9 fL (9.4-12.4); Monocytes Percent Auto 7.6 % (2-11); Neutrophils Absolute Auto 4.85 x10*3/uL (2.0-8.3); Neutrophils Percent Auto 75.1 % (45-73); Platelet Count 146 X10*3/uL (160-400); Red Cell Distribution Width 14.1 % (11.0-16.0); White Blood Count 6.5 X10*3/uL (4.8-10.8)
[2021-05-29 10:20] LABS: MANUAL DIFF FLAG NO
[2021-05-29 10:24] LABS: Lactic Acid 1.6 mmol/L (0.5-2.0)
[2021-05-29 10:28] LABS: Anion Gap 14 (12-20); Blood Urea Nitrogen 41 mg/dL (9-16); Calcium 8.3 mg/dL (8.4-10.2); Carbon Dioxide 25 mmol/L (22-29); Chloride 109 mmol/L (96-108); Creatinine Clr Calc Pharmacy 59.4; Estimated Glomerular Filt Rate > 60; Glucose Random 104 mg/dL (60-115); Potassium 3.9 mmol/L (3.3-5.1); Sodium 144 mmol/L (135-145)
[2021-05-29 10:32] LABS: COVID-19 Test Negative (Negative)
[2021-05-29] MEDS: vancomycin HCL 750 MG in 0.9 % Sodium Chloride 250 ML 265 MG IV (11:16)
--- NOTE | 2021-05-29 11:18 | PC.NURSE ---
Pt alert, remains confused and exit seeking at times, esily redirectable. NSR on tele with [facility]. Vanco started. Congested cough heard. sat 96% on room air without visible SOB noted
--- NOTE | 2021-05-29 12:30 | PC.NURSE ---
Pt remains agitated and exit seeking, need frequent reminders. Bladder scanned for 209mL, pt observer for safety. Ella dotson
--- NOTE | 2021-05-29 15:32 | PC.NURSE ---
seen by Dr Escobar
--- NOTE | 2021-05-29 15:39 | P.HPHOSP_ITS ---
History of Present Illness Date of Service: 05/29/21 Attending physician on admission: Jackie Escobar Chief Complaint: dementia with behavioural disturbances , aspirational pneumonia 75-year-old male history was taken with the help of human resources benefits administrator miss theodore: Who said that the patient's son was taking care of the patient but due to some region he needs to go to penitentiary recently and subsequently there is nobody to take care of the patient in the house. Patient was brought for placement, subsequently in the ED patient found to have possible aspiration pneumonia. Patient is unable to give any history he is alert oriented x1 only at baseline. As per the human resources benefits administrator patient also has wandering behavior, agitation behavior, probably advance dementia situation from at least worsening for 1 year. She denies any new symptoms at home including fever chills or nausea vomiting or abdominal pain but says that he was eating poorly. Lab imaging reviewed and and personally interpreted CBC seems : No leukocytosis, has mild thrombocytopenia, chemistry : BUN [address] head seems chronic changes Chest x-ray: Possible right lung base pneumonia. Review of Systems Review of Systems: Unable to give history except we already written in above in HPI Yes all other systems are reviewed and are negative PMFSH Pertinent family history: Unknown since patient never went to any doctor and his son is in penitentiary. Social History Household Members: Unknown / Unable to assess Housing: Unknown / Unable to assess Unable to assess alcohol history related to: Unknown Patient Tobacco Use Status: Tobacco use Unknown Advance Directives: Yes Advance Directives on File: Yes Advance Directives Date on File: 12/28/20 Current occupational status: retired Meds Allergies Allergy/AdvReac Type Severity Reaction Status Date / Time No Known Allergies Allergy Verified 12/24/20 08:35 [No Known Allergies*] Active Medications: Current Medications Piperacillin Sod/Tazobactam (Sod 3.375 gm/ Sodium Chloride) 50 mls @ 100 mls/hr IV Q6H KARLIE Lactated Ringer's (Lr) 1,000 mls @ 80 mls/hr IVCONT .[id number] [facility] Pharmacy Consult (Consult Rx Perform Med Rec) 1 each MISCELLANE ONCE PRN PRN Reason: Consult order Pharmacy Consult (Consult Rx Vancomycin Dosing) 1 each MISCELLANE DAILY PRN PRN Reason: Consult order Home Medications Medication Instructions Recorded Confirmed Last Taken Type No Known Home Meds 05/24/21 05/24/21 Unknown History Physical Exam Vital Signs and Narrative: Vital Signs: Last Vital Signs Temp 98.1 F 05/29/21 06:58 Pulse 65 05/29/21 09:36 Resp 16 05/29/21 06:58 BP 130/80 05/29/21 09:36 Pulse Ox 95 05/29/21 09:36 Body Mass Index 21.2 Physical exam: Appearance: A alert oriented x1, not in acute distress. Eyes: Pupils equal, round and reactive to light.? Sclera nonicteric.? ENT: Pharynx normal.? Moist mucous membranes. cvs: rrr, [id number] , res: Fair air entry, slightly diminished at right lung base. abd: no rebound or guarding ,nt, bs present. ext pulses present , no cyanosis neuro: Alert oriented x1, moves all extremities Results Labs CBC and Chem 7: 05/29/21 10:04 05/29/21 10:04 Labs: Laboratory Results - last 24 hr 05/29/21 05/29/21 05/29/21 10:04 10:04 10:04 MCV 95.2 MCH 30.4 MCHC 31.9 RDW 14.1 Plt Count 146 L MPV 12.9 H Immature Gran % (Auto) 0.3 Neut % (Auto) 75.1 H Lymph % (Auto) 15.8 L [place] % (Auto) 7.6 Eos % (Auto) 0.9 Baso % (Auto) 0.3 Lymph # (Auto) 1.0 L [place] # (Auto) 0.5 Eos # (Auto) 0.1 Baso # (Auto) 0.0 Abs Immat Gran (auto) 0.02 Absolute Neuts (auto) 4.85 Absolute Nucleated RBC 0.000 Nucleated RBC % (auto) 0.0 Anion Gap Estim Creat Clear Calc Estimated GFR Random Glucose Lactic Acid 1.6 Calcium COVID-19 (JENNIFER) Negative COVID-19 Clin Com See Note 05/29/21 10:04 MCV MCH MCHC RDW Plt Count MPV Immature Gran % (Auto) Neut % (Auto) Lymph % (Auto) [place] % (Auto) Eos % (Auto) Baso % (Auto) Lymph # (Auto) [place] # (Auto) Eos # (Auto) Baso # (Auto) Abs Immat Gran (auto) Absolute Neuts (auto) Absolute Nucleated RBC Nucleated RBC % (auto) Anion Gap 14 Estim Creat Clear Calc 59.4 Estimated GFR > 60 Random Glucose 104 Lactic Acid Calcium 8.3 L COVID-19 (JENNIFER) COVID-19 Clin Com Imaging Radiologist's Impressions: Impressions Chest X-Ray 05/29/21 08:24 IMPRESSION: New airspace opacities in the right lung base worrisome for focal pneumonia or aspiration. Recommend a follow-up to ensure resolution. Questionable small left pleural effusion versus pleural thickening. Head CT 05/29/21 10:23 IMPRESSION: 1. No evidence of acute intracranial hemorrhage or edematous territorial infarction. 2. 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 3. Redemonstration of complete opacification of the right maxillary sinus with associated bony remodeling. Assessment and Plan (1) Dementia: Status: Acute (2) Aspiration pneumonia: Qualifiers: Aspiration pneumonia type: unspecified Laterality: right Lung location: lower lobe of lung Qualified Code(s): J69.0 - Pneumonitis due to inhalation of food and vomit Status: Acute (3) Dementia with behavioral disturbance: Status: Acute (4) Pneumonia: Qualifiers: Laterality: bilateral Lung location: unspecified part of lung Pneumonia type: due to unspecified organism Qualified Code(s): J18.9 - Pneumonia, unspecified organism Status: Acute 1. Aspiration pneumonia Speech and Swallow NPO Hydration IV antibiotics Id evaluation 2. Pre renal azotemia: Continue IV hydration 3. Dementia possible with behavioral disturbances: Added dementia workup including syphilis, HIV, TSH, B12 folate, B1. CT head as above. 4. DVT prophylaxis with subQ heparin Discussed with the human resources benefits administrator miss theodore: Patient does not have any most form as per the says human resources benefits administrator, also rifle case repairer reached out to the patient patient lowe r and they are also not sure about the patient code status he needs to get in touch with patient's son so currently patient is full code. Quality Stroke Does the patient have a stroke diagnosis?: No VTE Prior VTE?: No VTE Risk Level:: Medical - moderate - high VTE Device Contraindication: N/A - Device Ordered VTE Drug Contraindication: N/A - Med Ordered
--- NOTE | 2021-05-29 15:48 | PHA.PROG ---
Admission Date/Time: May 29, 2021 15:31 Indication: Respiratory Infection Weight in k.2 kg Adjusted body weight in K.3 [place] body weight in K.4 Serum Creatinine - Last 168 Hours 05/23/21 05/29/21 17: 10:04 Creatinine 1.24 0.93 Estimated CrCl and GFR - Last 168 Hours 05/23/21 05/29/21 17: 10:04 Estim Creat Clear Calc 44.5 59.4 Estimated GFR 57 > 60 Vancomycin Loading Dose: N/A - 750 mg was given in the ED 05/29 @ 06/12 Current Vancomycin Dosing Regimen: 1250 mg Q24H Date and Time for next Vancomycin Level to be drawn: 06/01 @ 1000 Pharmacist Comments on Vancomycin Plan: Start Vanco 1250 mg 04/29 @ 11:00. Expected AUC of 502 with a trough of 14.4 Trough to be drawn before 4th dose Pharmacy to monitor renal function daily Georgette Silveira PharmD Vancomycin dosing will take advantage of [employer] as a clinical decision support tool that uses Bayesian modeling to calculate individual patient's pharmacokinetic parameters and forecast the patient's drug concentration time course with the target goal AUC 24 range of 400 - 600 mg/L/hr.
[2021-05-29 16:13] LABS: Thyroid Stimulating Hormone 2.44 uIU/mL (0.32-4.0)
[2021-05-29] MEDS: Pantoprazole Sodium 40 MG/10 ML VIAL IVPUSH (17:22)
[2021-05-29] MEDS: Lactated Ringers 1,000 ML 80 ML IVCONT (17:23)
--- NOTE | 2021-05-29 17:23 | MHC.SLORD ---
Speech Language Pathology Order Status: Received order for bedside dysphagia evaluation. PROJECT PLANNER contacted Dr. Escobar via [place] Message. Patient will be seen tomorrow morning for bedside dysphagia evaluation.
[2021-05-29 17:26] LABS: Vitamin B12 444 pg/mL (200-900)
[2021-05-29] MEDS: 0.9 % Sodium Chloride Flush 3 ML SYRINGE IVFLUSH (17:28)
[2021-05-29] MEDS: Heparin Sodium,Porcine 5,000 UNIT/ML VIAL 5000 UNIT SUBCUT (17:28)
--- NOTE | 2021-05-29 19:53 | PC.NURSE ---
PT EXTREMELY ACTIVE IN HOSPITAL BED. PT WAS UP IN W/C WITH ASSISTENCE FOR APPROX 1/2 HR.AND RETURNED TO HOSPITAL BED.
[2021-05-29] MEDS: LORazepam 2 MG/ML VIAL 1 MG IVPUSH (20:09)
--- NOTE | 2021-05-29 20:21 | PC.NURSE ---
pt appears to be anxious and was medicated for anxiety. pt in hospital bed in NAD and watching TV. will continue to monitor pt.
--- NOTE | 2021-05-29 21:48 | PC.NURSE ---
PT RESTING IN HOSPITAL BED IN NAD. WILL CONTINUE TO MONITOR PT.
--- NOTE | 2021-05-29 23:17 | PC.NURSE ---
PT RESTING IN STRETCHER. RESPIRATIONS EASY, N/L. SKIN W/D. WILL CONTINUE TO MONITOR PT.
--- NOTE | 2021-05-29 23:52 | PC.NURSE ---
This RN calling M/S. M/S to call back for report when able.
[2021-05-30] VITALS (7 sets, daily range): BP systolic 141–190; BP diastolic 71–90; PULSE 56–76; RESP 15–18; TEMP 36.1–37.2; O2SAT 91–98; BMI 21.1
--- NOTE | 2021-05-30 00:03 | PC.NURSE ---
REPORT GIVEN TO FLOOR. PT TO FLOOR IN STRETCHER.
--- NOTE | 2021-05-30 00:26 | PC.NURSE ---
PT TO FLOOR IN HOSPITAL BED. LR @ 80ML/HR RUNNING W/O DIFFICULTY ON PUMP. PT TO FLOOR IN NAD.
[2021-05-30] MEDS: Heparin Sodium,Porcine 5,000 UNIT/ML VIAL 5000 UNIT SUBCUT ×2 (04:39→15:39)
[2021-05-30] MEDS: Piperacillin Sodium/Tazobactam 3.375 GM in 0.9 % Sodium Chloride 50 ML IV ×3 (04:39→22:25)
[2021-05-30] MEDS: Lactated Ringers 1,000 ML 80 ML IVCONT (04:40)
[2021-05-30] MEDS: Pantoprazole Sodium 40 MG/10 ML VIAL IVPUSH (06:05)
[2021-05-30 06:09] LABS: Hematocrit 39.8 % (42.0-52.0); Hemoglobin 12.6 g/dl (14.0-18.0)
[2021-05-30 06:18] LABS: Anion Gap 15 (12-20); Blood Urea Nitrogen 30 mg/dL (9-16); Calcium 8.3 mg/dL (8.4-10.2); Carbon Dioxide 25 mmol/L (22-29); Chloride 111 mmol/L (96-108); Creatinine Clr Calc Pharmacy 59.2; Estimated Glomerular Filt Rate > 60; Glucose Random 90 mg/dL (60-115); Potassium 3.6 mmol/L (3.3-5.1); Sodium 147 mmol/L (135-145)
[2021-05-30] MEDS: 0.9 % Sodium Chloride Flush 3 ML SYRINGE IVFLUSH (08:09)
[2021-05-30 08:58] LABS: HIV AB/AG Nonreactive (Nonreactive); HIV Num 1 0.05 S/CO (0.00-0.99)
[2021-05-30] MEDS: Dextrose 5 % and 0.45 % NaCl 1,000 ML 80 ML IVCONT ×2 (09:22→22:17)
--- NOTE | 2021-05-30 10:54 | PC.NURSE ---
Skin/Wound assessment completed today. Patient has two Stage 2 pressure injuries to left heel and medial left heel-Woundres gel applied covered by a foam dressing. Patient also has Stage 1 pressure injuries to bilateral buttocks-barrier cream applied for protection along with turn and repositioning q 2 h, patient also has a rash from head to toe possibly an allergic reaction. Dr. Escobar informed and directed for nurse to hold antibiotics. Patient has very dry skin and scattered bruising are arms.
[2021-05-30] MEDS: Folic Acid 1 MG TABLET PO (11:23)
[2021-05-30] MEDS: Thiamine HCL 100 MG TABLET PO (11:23)
--- NOTE | 2021-05-30 11:39 | MHC.SL.SWA ---
Speech Pathologist Impression: Risk of Aspiration Oralpharyngeal Dysphagia Risk of Aspiration Due to: Poor PO Intake Reduced Cognition Dysphasia Diet Status: Upgrade Liquid Consistency and Strategies for Safe Swallow: Liquid Intake Recommendation: Helix Thick Liquid Intake Strategies: Small Sips No Straws Solid Food Consistency: Dietary Recommendations: Pureed (NDD1) Additional Modifications to Solid Foods: Aspiration precautions: -seated upright at 90 degrees for all PO intake - remain upright 30 minutes following PO intake - 1:1 assist with all PO Intake - small, single bites and sips - NO STRAWS - oral cavity check to ensure bolus clearance - PO may need to be withheld depending on pt's level of alertness Oral Medication Intake: Crushed with Puree Compensatory Strategies and Precautions to be Taken for Safe Swallow: Sitting Upright (90 deg) No Straw Liquids from Cup Small Bites and Sips Rate of Ingestion Change Oral Check Supervision While Eating and Drinking for Safe Swallow: Total Assistance Swallowing Recommended Treatments: Compens. Strategy Educat. Recommendation for Speech: Inpatient Speech Therapy Comment: Pt presented to the ED 05/29 for placement as pt's son/senior software developer was recently incarcerated. An incidental finding of aspiration pneumonia was noted upon completion of a chest x-ray. Pt also has a diagnosis of dementia with behavioral disturbances. Oral care was provided prior to the presentation of PO trials. Pt was dependent for PO trials. He elicited immediate, audible gurgling post swallow with a tsp of thin water. No further overt s/s aspiration noted with nectar thick liquids presented via tsp and clinician controlled cup sips. Pt demonstrated a delayed initiation of a pharyngeal swallow trigger with all solids and liquids presented. Solid trials were limited to puree as pt fell back to sleep and was unable to awaken. Pt demonstrated WFL oral clearance and no overt s/s aspiration with limited intake of pureed solids presented. Updated with RN re: diet consistency recommendations and need for aspiration precautions and 1:1 assist with all PO intake. PO may need to be withheld depending on pt's level of lethargy. MD notified via secure text in order to advance diet from NPO. LINE REPAIRER TOWER will continue to follow pt throughout his hospitalization to determine the safest and least restrictive diet consistency. Digital Sales Manager Clinican/Clinical Fellow: No Supervisory Statement: I have reviewed and agree with the student/clinical fellow's documentation: N/A Speech Language Pathologist: Rose Joya M.A., [facility]-LINE REPAIRER TOWER
--- NOTE | 2021-05-30 14:14 | MHC.CM.PN ---
Addendum entered by Cele Vallejo RN 05/30/21 14:25: REFERRALS FOR PLACEMENT HAVE BEEN PLACED BY PREVIOUS CM, REFERRAL HAS BEEN UPDATED AND [facility] IS CURRENTLY CHECKING ON UNVACCINATED BEDS. [facility] AND [facility] ARE WILLING TO OFFER BED, HOWEVER THEY DO NOT CURRENTLY HAVE A MALE BED AVAILABLE. CM WILL CONT TO FOLLOW D/C NEEDS AND WILL NOTIFY SON'S CONCRETE JOURNEYMAN TO UPDATE CM COULD NOT GET A HOLD OF SON'S GF. D/C PLAN: STR/GROUP HOME BED, ACTION FOR BLS TRANSPORT Original Note: POTTER 05/30/21, CM ATTEMPTED TO CALL HCP/SONS GF DARRYN RAYA AT 1:45PM WHO LIVES W/PT AND CARES FOR PT'S BED BOUND TO GET COLLATERAL AND REVIEW POTTER, NO ANSWER AND MESSAGE LEFT, THIS CM CONSULTED W/ED CM PT IS UNABLE TO ANSWER QUESTIONS APPROPRIATELY D/T TO DEMENTIA, PER ED CM PT HAD BEEN AWAITING PLACEMENT PRIOR TO BEING ADMITTED TO OBS, PER ED CM PT'S SON GARCIA IS HCP AND TYPICALLY CARES FOR PT AT HOME, HOWEVER HE HAS BEEN INCARCERATED FOR 90 DAYS D/T ETOH AND WILL RESUME CARE ONCE RELEASED, SON'S CONCRETE JOURNEYMAN IS EARLE CROUCH [phone] AND IS ABLE TO CONTACT SON AND GIVE HIM MESSAGES AND CAN HAVE HIM SIGN DOCUMENTS IF NECESSARY, PER PT'S SON, GF DARRYN UNABLE TO PROVIDE CARE FOR BOTH PT AND PT'S AND SON IS LOOKING FOR PLACEMENT
--- NOTE | 2021-05-30 14:42 | W.PM.IDCN ---
History of Present Illness Data of Consult Service Date: 05/30/21 Requesting physician: Jackie Escobar Primary Care Provider: Unknown Physician HPI Reason for consult: lung infiltrates He presents for failure to thrive ER. He has cough and had CXR right base infiltrates. He was given Vancomycin and Zosyn and seen to have itchy rash. Review of Systems Review of Systems: Yes all other systems are reviewed and are negative [facility] Past Medical History Medical History (Updated 05/30/21 @ 14:47 by Briseida Garica MD) Rash Family History Family history: reviewed and not pertinent Social History Social History Household Members: Family Housing: House Unable to assess alcohol history related to: Unknown Patient Tobacco Use Status: Tobacco use Unknown Advance Directives Date on File: 12/28/20 service: No Current occupational status: retired [employer] Allergies Allergy/AdvReac Type Severity Reaction Status Date / Time No Known Allergies Allergy Verified 12/24/20 08:35 [No Known Allergies*] Active Medications: Current Medications Folic Acid (Folic Acid 1 Mg Tablet) 1 mg PO DAILY [facility] Last Admin: 05/30/21 11:23 Dose: 1 mg Documented by: Heparin Sodium (Porcine) (Heparin Sodium,Porcine 5,000 Unit/Ml Vial) 5,000 unit SUBCUT Q12H [facility] Last Admin: 05/30/21 04:39 Dose: 5,000 unit Documented by: Hydralazine HCl (Hydralazine Hcl 20 Mg/Ml Vial) 10 mg IVPUSH Q6H PRN; Protocol PRN Reason: htn Piperacillin Sod/Tazobactam (Sod 3.375 gm/ Sodium Chloride) 50 mls @ 100 mls/hr IV Q6H [facility] Last Infusion: 05/30/21 09:29 Dose: Infused Documented by: Dextrose/Sodium Chloride (D51/2ns) 1,000 mls @ 80 mls/hr IVCONT .[id number] [facility] Last Admin: 05/30/21 09:22 Dose: 80 mls/hr Documented by: Pantoprazole Sodium (Pantoprazole Sodium 40 Mg/10 Ml Vial) 40 mg IVPUSH DAILY@0630 [facility] Last Admin: 05/30/21 06:05 Dose: 40 mg Documented by: Permethrin (Permethrin 5 % Cream 60 Gm Tube) 1 appl TOPICAL ONCE ONE; Protocol Stop: 05/30/21 14:41 Pharmacy Consult (Consult Rx Perform Med Rec) 1 each MISCELLANE ONCE PRN PRN Reason: Consult order Pharmacy Consult (Consult Rx Vancomycin Dosing) 1 each MISCELLANE DAILY PRN PRN Reason: Consult order Sodium Chloride (0.9 % Sodium Chloride Flush 3 Ml Syringe) 3 ml IVFLUSH QSHIFT [facility] Last Admin: 05/30/21 08:09 Dose: 3 ml Documented by: Thiamine HCl (Thiamine Hcl 100 Mg Tablet) 100 mg PO DAILY [facility] Last Admin: 05/30/21 11:23 Dose: 100 mg Documented by: Home Medications Medication Instructions Recorded Confirmed Last Taken Type No Known Home Meds 05/24/21 05/24/21 Unknown History Physical Exam Vital Signs: Vital Signs: Last Vital Signs Temp 98.4 F 05/30/21 12:00 Pulse 56 05/30/21 12:00 Resp 15 05/30/21 12:00 BP 190/85 H 05/30/21 12:00 Pulse Ox 94 05/30/21 12:00 Body Mass Index 21.1 Const: General: cooperative HENMT: Head: Yes normal to inspection Mouth: Normal oral and palatal mucosa present Resp: Effort & Inspection: normal respiratory effort Cardio: Rate: regular rate Rhythm: regular rhythm GI: Palpation (GI): Soft to palpation and nontender Skin: Other: fine macular rash ,whole body especially chest Extrem: General: Yes normal to inspection Results Labs CBC & Chem 7: 05/30/21 05:39 05/30/21 05:39 Labs: Short CBC 05/30/21 Range/Units 05:39 Hgb 12.6 L (14.0-18.0) g/dl Hct 39.8 L (42.0-52.0) % BMP 05/30/21 05:39 Sodium 147 H Potassium 3.6 Chloride 111 H Carbon Dioxide 25 BUN 30 H Creatinine 0.93 Calcium 8.3 L Microbiology Microbiology Results: Microbiology 05/29/21 10:04 Blood - Venous Blood Culture - Preliminary No growth after 24 hours. 05/29/21 10:04 Blood - Venous Blood Culture - Preliminary No growth after 24 hours. Assessment and Plan (1) Aspiration pneumonia: Qualifiers: Aspiration pneumonia type: unspecified Laterality: right Lung location: lower lobe of lung Qualified Code(s): J69.0 - Pneumonitis due to inhalation of food and vomit Status: Acute He has dementia and has RLL pneumonia He has aspiration most likely Agree Zosyn cover anerobes,gram negative 5-7 days Check MRSA nares (2) Rash: Status: Acute Thought to be due to Vancomycin However areas on body appear older so would suspect with patient being on street scabies Would treat Permethrin for scabies
--- NOTE | 2021-05-30 14:42 | MHC.CM.PN ---
CM REACHED OUT TO PT'S SON/HCP AGRCIA'S ATTY EARLE MIKO, UPDATE GIVEN AND POSSIBLE TXFR TO [facility], EARLE REPORTS HE IS -HAPPY TO ASSIST W/ANY PAPERWORK THAT NEEDS TO BE SIGNED HOWEVER IS UNAVAILABLE TO DO SO ON W/E'S, HOLIDAYS, 06/07-06/10 AND WILL NEED TO KNOW 24HRS AHEAD OF TIME, CM WILL GIVE THIS INFORMATION TO SNF ONCE ONE IS SECURED FOR PT. EARLE ALSO REPORTS [facility] [phone] SHOULD BE HELPFUL AND MAY BE ABLE TO ASSIST W/HAVING PAPERWORK SIGNED IF EARLE IS UNAVAILABLE HOWEVER UNCLEAR IF SNF WOULD BE OPEN TO THAT. CM WILL CONT TO FOLLOW.
--- NOTE | 2021-05-30 14:49 | HO.PM.IMPN ---
Subjective Subjective Date of Service: 05/30/21 Interval History: Probable aspiration pneumonia, dementia Review of Systems Awake alert time 1 near his baseline could able to answer many question. no fever or hypoxia has minimum rash on lower ext Physical Exam Vital Signs: Vital Signs: Last Vital Signs Temp 98.4 F 05/30/21 12:00 Pulse 56 05/30/21 12:00 Resp 15 05/30/21 12:00 BP 190/85 H 05/30/21 12:00 Pulse Ox 94 05/30/21 12:00 Body Mass Index 21.1 Appearance:alert oriented x1, not in acute distress. Eyes: Pupils equal, round and reactive to light.? Sclera nonicteric.? cvs: rrr, [id number] , res:? Fair air entry, slightly diminished at right lung base. abd: no rebound or guarding ,nt, bs present. ext pulses present , no cyanosis, lower ext rash neuro:? Alert oriented x1, moves all extremities Objective Data Active Medications Amlodipine Besylate (Amlodipine Besylate 2.5 Mg Tablet) 2.5 mg PO ONCE ONE; Protocol Stop: 05/30/21 14:49 Folic Acid (Folic Acid 1 Mg Tablet) 1 mg PO DAILY [facility] Last Admin: 05/30/21 11:23 Dose: 1 mg Documented by: GOLDEN Heparin Sodium (Porcine) (Heparin Sodium,Porcine 5,000 Unit/Ml Vial) 5,000 unit SUBCUT Q12H [facility] Last Admin: 05/30/21 04:39 Dose: 5,000 unit Documented by: CLARENCE Hydralazine HCl (Hydralazine Hcl 20 Mg/Ml Vial) 10 mg IVPUSH Q6H PRN; Protocol PRN Reason: htn Piperacillin Sod/Tazobactam (Sod 3.375 gm/ Sodium Chloride) 50 mls @ 100 mls/hr IV Q6H [facility] Last Infusion: 05/30/21 09:29 Dose: 0 mls/hr Documented by: GOLDEN Dextrose/Sodium Chloride (D51/2ns) 1,000 mls @ 80 mls/hr IVCONT .[id number] [facility] Last Admin: 05/30/21 09:22 Dose: 80 mls/hr Documented by: GOLDEN Pantoprazole Sodium (Pantoprazole Sodium 40 Mg/10 Ml Vial) 40 mg IVPUSH DAILY@0630 [facility] Last Admin: 05/30/21 06:05 Dose: 40 mg Documented by: CLARENCE Pharmacy Consult (Consult Rx Perform Med Rec) 1 each MISCELLANE ONCE PRN PRN Reason: Consult order Pharmacy Consult (Consult Rx Vancomycin Dosing) 1 each MISCELLANE DAILY PRN PRN Reason: Consult order Sodium Chloride (0.9 % Sodium Chloride Flush 3 Ml Syringe) 3 ml IVFLUSH QSHIFT [facility] Last Admin: 05/30/21 08:09 Dose: 3 ml Documented by: GOLDEN Thiamine HCl (Thiamine Hcl 100 Mg Tablet) 100 mg PO DAILY [facility] Last Admin: 05/30/21 11:23 Dose: 100 mg Documented by: GOLDEN Labs CBC & Chem 7: 05/30/21 05:39 05/30/21 17:09 Labs: Laboratory Results - last 24 hr 05/29/21 05/29/21 05/29/21 10:04 16:29 16:29 Anion Gap Estim Creat Clear Calc Estimated GFR Random Glucose Calcium Vitamin B12 444 Folate 10.0 TSH 2.44 HIV 1&2 Ab/P24 Ag 4thGn Nonreactive 05/30/21 05:39 Anion Gap 15 Estim Creat Clear Calc 59.2 Estimated GFR > 60 Random Glucose 90 Calcium 8.3 L Vitamin B12 Folate TSH HIV 1&2 Ab/P24 Ag 4thGn Microbiology Microbiology Results: Microbiology 05/29/21 10:04 Blood Culture - Preliminary Blood - Venous No growth after 24 hours. 05/29/21 10:04 Blood Culture - Preliminary Blood - Venous No growth after 24 hours. Assessment and Plan (1) Aspiration pneumonia: Status: Acute (2) Rash: Status: Acute (3) Dementia: Status: Acute Assessment and Plan: ?1. Aspiration pneumonia Speech and Swallow-updated diet Hydration,hold IV antibiotics until seen by ID Id evaluation-? scabies : added premethrin Resumed IV Zosyn for aspiration pneumonia. blood cultures prelim@24 hrs 2. Pre renal azotemia:? Continue IV hydration 3. Dementia possible with behavioral disturbances: Added dementia workup including syphilis-T pallidum pending, HIV, TSH, B12 folate-seems fine, B1-pending. CT head as above. psych eval for behavioural issues. 4.Medial left heel and left heel. Stage 2 pressure injuries.: wound consult and nutritional eval added. 4. DVT prophylaxis with subQ heparin Discussed with the bonding and composite fabricator miss ewelina Deluna Stroke Does the patient have a stroke diagnosis?: No VTE Prior VTE?: No VTE Risk Level:: Medical - moderate - high VTE Device Contraindication: N/A - Device Ordered VTE Drug Contraindication: N/A - Med Ordered
--- NOTE | 2021-05-30 15:06 | MHC.CLN ---
NUTRITION CONSULT NUTRITION CONSULT DUE TO PRESSURE INJURIES. POOR INTAKE NOTED PRIOR TO ADMISSION. ATE 100% AT LUNCH TODAY. DIET=2 GRAM SODIUM, PUREE WITH NECTAR THICK LIQUIDS. ADDED ENSURE TID TO PROVIDE ADDITIONAL 1050 KCALS, 60 G PROTEIN TO PROMOTE WOUND HEALING AND NUTRITIONAL STATUS. BMI WNL BUT PATIENT IS 90% OF IBW.
[2021-05-30] MEDS: amLODIPine Besylate 2.5 MG TABLET PO (15:39)
[2021-05-30] MEDS: Omeprazole 20 MG CAPSULE.DR PO (15:40)
[2021-05-30] MEDS: Permethrin 5 % Cream 60 GM TUBE 1 APPL TOPICAL (15:56)
[2021-05-30 17:43] LABS: Sodium 145 mmol/L (135-145)
[2021-05-31] VITALS: BP 137/51; PULSE 65; RESP 17; TEMP 36.4; O2SAT 95
[2021-05-31 04:00] VITALS: BP 161/87; PULSE 53; RESP 17; TEMP 36.2; O2SAT 98
[2021-05-31] MEDS: Piperacillin Sodium/Tazobactam 3.375 GM in 0.9 % Sodium Chloride 50 ML IV ×4 (04:15→20:27)
[2021-05-31] MEDS: Heparin Sodium,Porcine 5,000 UNIT/ML VIAL 5000 UNIT SUBCUT ×2 (04:15→17:24)
[2021-05-31 05:55] LABS: Estimated Glomerular Filt Rate > 60
[2021-05-31] MEDS: Omeprazole 20 MG CAPSULE.DR PO (06:09)
[2021-05-31 08:00] VITALS: BP 166/85; PULSE 65; RESP 16; TEMP 36.2; O2SAT 97
[2021-05-31] MEDS: Thiamine HCL 100 MG TABLET PO (09:27)
[2021-05-31] MEDS: Folic Acid 1 MG TABLET PO (09:27)
--- NOTE | 2021-05-31 10:37 | P.DS_ITS ---
DS: Providers Provider Date of Service: 05/31/21 Date of admission: 05/29/21 15:31 Primary care physician: Unknown Physician Consults: 05/25/21 09:50 Consult to Psychiatry Stat Consulting Provider: Psych Covering Reason for consultation: undiagnosed dementia, confusion, wandering behavior, please make med recomm 05/29/21 15:35 Consult to Infectious Diseases Routine Consulting Provider: Briseida Garcia Reason for consultation: aspirational pneumonia Has provider been notified: No 05/29/21 15:37 Consult to Psychiatry Routine Consulting Provider: Psych Covering Reason for consultation: dementia with behavioural changes Has provider been notified: No DS: Diagnosis Discharge Diagnosis (1) Aspiration pneumonia: Status: Acute (2) Rash: Status: Acute (3) Dementia: Status: Acute DS: Summary Time Spent with Patient Time attestation: Total time spent providing and/or coordinating discharge services: Physical Exam Vital Signs: Vital Signs: Last Vital Signs Temp 97.1 F 05/31/21 08:00 Pulse 65 05/31/21 08:00 Resp 16 05/31/21 08:00 BP 166/85 H 05/31/21 08:00 Pulse Ox 97 05/31/21 08:00 Body Mass Index 21.1 DS: Data Data Completed and Pending Labs on day of discharge: Laboratory Results - last 24 hr 05/29/21 05/30/21 05/31/21 16:29 17:09 05:17 Sodium 145 Creatinine 1.04 Estim Creat Clear Calc 53.0 Estimated GFR > 60 HIV 1&2 Ab/P24 Ag 4thGn Nonreactive Preliminary micro results at discharge 05/29/21 10:04 Blood Culture - Preliminary Blood - Venous No growth after 24 hours. 05/29/21 10:04 Blood Culture - Preliminary Blood - Venous No growth after 24 hours. Discharge Plan Discharge Patient Disposition: Xfer SNF Discharge Diagnosis: Pneumonia, question of scabies. Referrals: Physician,Unknown J [Primary Care Provider] - 1 Week Discharge Medications: New amlodipine 2.5 mg tablet 2.5 mg PO DAILY Qty: 30 RF: 0 folic acid 1 mg Tablet 1 mg PO DAILY Qty: 30 RF: 0 thiamine mononitrate (vit B1) 100 mg Tablet 100 mg PO DAILY Qty: 30 RF: 0 omeprazole 20 mg Capsule,Delayed Release(Dr/Ec) 20 mg PO DAILY@0630 Qty: 30 RF: 0 amoxicillin-pot clavulanate [Augmentin] 875-125 mg tablet 1 tab PO BID Qty: 10 RF: 0 No Action No Known Home Meds RF: 0 Discharge Orders: Discharge Order (Routine); Ordered 05/31/21 Ordered By: Jackie Escobar Diet: advance to usual diet, low fat, low cholesterol and low salt diet Activity on Discharge: As tolerated Stand Alone Forms: Patient Portal Discharge page Care Plan Goals: Patient sent to the hospital for placement, subsequently has developed probable aspiration pneumonia started on IV antibiotics seems improving. Upon discharge added p.o. Augmentin, please complete the course. 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 Further workup and management out patiently, will inform if above tests come abnormal to the rehab. ID: Saw the patient has rash in the legs thought to be question of scabies and patient received permethrin, patient should be on contact precautions. Elevated blood pressure: Blood pressure is consistently elevated in 160s range he had not seen any doctor from long time so unclear history if he had hypertension. We will add small dose amlodipine for now. Health Concerns: As above. Plan of Treatment: As above. Assessment: As above.
[2021-05-31] MEDS: amLODIPine Besylate 2.5 MG TABLET PO (11:04)
[2021-05-31 12:00] VITALS: BP 155/76; PULSE 90; RESP 18; TEMP 36.4; O2SAT 98
--- NOTE | 2021-05-31 12:44 | MHC.SL.SWA ---
Speech Pathologist Impression: Risk of Aspiration Oralpharyngeal Dysphagia Risk of Aspiration Due to: Poor PO Intake Reduced Cognition Dysphasia Diet Status: Upgrade Liquid Consistency and Strategies for Safe Swallow: Liquid Intake Recommendation: [place] Thick Liquid Intake Strategies: Small Sips No Straws Solid Food Consistency: Dietary Recommendations: Grnd/Mech Altered (NDD2) Additional Modifications to Solid Foods: Recommend UPGRADE GROUND/MECH ALTERED (NDD2) solids and maintain NECTAR THICK liquids with pills CRUSHED in PUREE. Recommend total supervision during meals, and assistance as needed. Continue aspiration precautions. Oral Medication Intake: Crushed with Puree Compensatory Strategies and Precautions to be Taken for Safe Swallow: Sitting Upright (90 deg) No Straw Small Bites and Sips Alternate Liquids/Solids Rate of Ingestion Change Oral Check Avoid Specific Foods Supervision While Eating and Drinking for Safe Swallow: Total Supervision (1:1) Swallowing Recommended Treatments: Compens. Strategy Educat. Recommendation for Speech: Inpatient Speech Therapy Comment: Pt presented to the ED 05/29 for placement as pt's son/juke box servicer was recently incarcerated. An incidental finding of aspiration pneumonia was noted upon completion of a chest x-ray. Pt also has a diagnosis of dementia with behavioral disturbances. BLOCKER HEATED MET[employer]MS updated diet order to reflect upgrade in solid consistency. Updated with RN, , RD via [place] Message re: diet consistency recommendations and need for aspiration precautions and 1:1 assist with all PO intake. PO may need to be withheld depending on pt's level of lethargy. [employer] will continue to follow pt throughout his hospitalization to determine the safest and least restrictive diet consistency. Door Glass Installer Clinican/Clinical Fellow: No Supervisory Statement: I have reviewed and agree with the student/clinical fellow's documentation: N/A Speech Language Pathologist: Nora Mederos M.A., [facility]
--- NOTE | 2021-05-31 12:52 | MHC.CM.PN ---
CM received messages from [facility] and [facility] unable to take pt and CM called Jeremi the liaison at [facility] who report they will most likely decline pt d/t not having a LTC payor as pt will need placement for over the 20 medicare days. CM did send referral and spoke w/FS to do a [facility] search and per FS pt has not been in the [facility] system, FS did recommend we find out 's name to determine if she has [facility]. Per previous notes CM has unable to get in contact w/HCP's gf and son is incarcerated.
--- NOTE | 2021-05-31 13:48 | P.PNIM_ITS ---
Subjective Subjective Date of Service: 05/31/21 Interval History: Aspiration pneumonia Review of Systems Patient awake alert time 1, at baseline seems little pleasant today could able to answer few questions -no short of breath or any pain Physical Exam Vital Signs: Vital Signs: Last Vital Signs Temp 97.6 F 05/31/21 12:00 Pulse 90 05/31/21 12:00 Resp 18 05/31/21 12:00 BP 155/76 H 05/31/21 12:00 Pulse Ox 98 05/31/21 12:00 Body Mass Index 21.1 Appearance:alert oriented x1, not in acute distress. Eyes: Pupils equal, round and reactive to light.? Sclera nonicteric.? cvs: rrr, [id number] , res:? Fair air entry, slightly diminished at right lung base. abd: no rebound or guarding ,nt, bs present. ext pulses present , no cyanosis, lower ext rash neuro:? Alert oriented x1, moves all extremities Objective Data Active Medications Folic Acid (Folic Acid 1 Mg Tablet) 1 mg PO DAILY [facility] Last Admin: 05/31/21 09:27 Dose: 1 mg Documented by: WILFREDO Heparin Sodium (Porcine) (Heparin Sodium,Porcine 5,000 Unit/Ml Vial) 5,000 unit SUBCUT Q12H [facility] Last Admin: 05/31/21 04:15 Dose: 5,000 unit Documented by: JOSIAH Hydralazine HCl (Hydralazine Hcl 20 Mg/Ml Vial) 10 mg IVPUSH Q6H PRN; Protocol PRN Reason: htn Piperacillin Sod/Tazobactam (Sod 3.375 gm/ Sodium Chloride) 50 mls @ 100 mls/hr IV Q6H [facility] Last Infusion: 05/31/21 10:26 Dose: 0 mls/hr Documented by: WILFREDO Omeprazole (Omeprazole 20 Mg Capsule.Dr) 20 mg PO DAILY@0630 [facility] Last Admin: 05/31/21 06:09 Dose: 20 mg Documented by: JOSIAH Pharmacy Consult (Consult Rx Perform Med Rec) 1 each MISCELLANE ONCE PRN PRN Reason: Consult order Pharmacy Consult (Consult Rx Vancomycin Dosing) 1 each MISCELLANE DAILY PRN PRN Reason: Consult order Sodium Chloride (0.9 % Sodium Chloride Flush 3 Ml Syringe) 3 ml IVFLUSH QSHIFT [facility] Last Admin: 05/31/21 07:58 Dose: Not Given Documented by: WILFREDO Non-Admin Reason: IV Running Thiamine HCl (Thiamine Hcl 100 Mg Tablet) 100 mg PO DAILY [facility] Last Admin: 05/31/21 09:27 Dose: 100 mg Documented by: WILFREDO Labs CBC & Chem 7: 05/30/21 05:39 05/31/21 05:17 Labs: Laboratory Results - last 24 hr 05/31/21 05:17 Estim Creat Clear Calc 53.0 Estimated GFR > 60 Microbiology Microbiology Results: Microbiology 05/29/21 10:04 Blood Culture - Preliminary Blood - Venous No growth after 48 hours. 05/29/21 10:04 Blood Culture - Preliminary Blood - Venous No growth after 48 hours. Assessment and Plan (1) Aspiration pneumonia: Status: Acute Assessment and Plan: 1. Aspiration pneumonia Speech and Swallow-updated diet blood cultures prelim@24 hrs Continue IV Zosyn. Possible scabies: Given permethrin treatment, will need another treatment in a week. 2. Pre renal azotemia:? Seems improving, off hydration. 3. Dementia possible with behavioral disturbances: Added dementia workup including syphilis-T pallidum pending, HIV, TSH, B12 folate-seems fine, B1-pending. CT head as above. psych eval for behavioural issues. 4.Medial left heel and left heel. Stage 2 pressure injuries.: wound consult and nutritional eval added. 5. DVT prophylaxis with subQ heparin Patient awaiting placement. Discussed with the unit clerk miss ewelina Deluna Stroke Does the patient have a stroke diagnosis?: No VTE Prior VTE?: No VTE Risk Level:: Medical - moderate - high VTE Device Contraindication: N/A - Device Ordered VTE Drug Contraindication: N/A - Med Ordered
--- NOTE | 2021-05-31 14:36 | MHC.CM.PN ---
Addendum entered by Cele Vallejo RN 06/01/21 08:23: CM CHARTER DRIVER CONTACTED THIS CM THAT PD HAD LEFT MESSAGE ON CM VOICEMAIL THAT THEY HAD VISITED PT'S HOME FOR WELL BEING CHECK BETWEEN 3:30-4:00PM AND THAT EVERYTHING WAS FINE. Addendum entered by Cele Vallejo RN 05/31/21 14:46: CM RECEIVED CALL BACK FROM KIRSTIN NICOLE TO FURTHER DISCUSS CONCERNS, YUNIORT CORYE REPORTS HE WILL REPORT TO ONCOMING SHIFT AND WELL BEING CHECK WILL BE DONE AND WILL CALL CM BACK W/RESULTS. Original Note: AFTER READING AMBULANCE REPORT THAT NOTED PT WAS FOUND IN [facility] AND THAT IT'S NOT IN THE BEST INTEREST OF PT TO RETURN HOME CM HAS CONTACTED THE [facility] TO REQUEST A WELLNESS CHECK ON PT'S WHO IS BED BOUND AND DEPENDENT ON OTHERS FOR CARE, CM SPOKE W/OFFICER EMILY WHO IS FAMILIAR W/FAMILY AND WILL INFORM HER MECHANICAL ENGINEERING TEACHER OF CM CONCERNS.
[2021-05-31 15:39] VITALS: BP 141/76; PULSE 51; RESP 15; TEMP 36.2; O2SAT 94
[2021-05-31] MEDS: 0.9 % Sodium Chloride Flush 3 ML SYRINGE IVFLUSH ×2 (17:24→20:27)
[2021-05-31 20:00] VITALS: BP 169/77; PULSE 65; RESP 15; TEMP 36.8; O2SAT 95
[2021-05-31] MEDS: OLANZapine 2.5 MG TABLET PO (20:27)
[2021-06-01] VITALS: BP 111/52; PULSE 65; RESP 18; TEMP 36.8; O2SAT 93
[2021-06-01 03:27] VITALS: BP 119/55; PULSE 64; RESP 18; TEMP 37.3; O2SAT 92
[2021-06-01] MEDS: Piperacillin Sodium/Tazobactam 3.375 GM in 0.9 % Sodium Chloride 50 ML IV (05:11)
[2021-06-01] MEDS: Heparin Sodium,Porcine 5,000 UNIT/ML VIAL 5000 UNIT SUBCUT ×2 (05:11→16:08)
[2021-06-01] MEDS: Omeprazole 20 MG CAPSULE.DR PO (05:12)
[2021-06-01 06:10] LABS: Creatinine Clr Calc Pharmacy 44.1; Estimated Glomerular Filt Rate 56
[2021-06-01 08:00] VITALS: BP 123/59; PULSE 59; RESP 18; TEMP 36.4; O2SAT 92
--- NOTE | 2021-06-01 08:28 | MHC.CM.PN ---
[facility] REVIEWED, PER HOSPITALIST PT MEDICALLY CLEARED AND WAITING ON PLACEMENT, PT HAS BEEN CHANGED TO [facility]. PT HAS SEVERAL BARRIERS TO PLACEMENT AND MAY BE HERE RESIDENTIAL. BARRIERS INCLUDE MEDICARE ONLY W/NO [facility] OR SECENDARY INSURANCE FOR LTC OR LONGER TERM PLACEMENT, HCP/[facility] IS INCARCERATED AND ACCEPTING SNF WOULD HAVE TO GO THROUGH ODD BUNDLE WORKER TO HAVE ANY DOCUMENTS SIGNED PT HAS DEMENTIA AND ORIENTED TO SELF//[facility] ONLY, ODD BUNDLE WORKER IS UNSURE IF PT'S SON WILL GET OUT OF USP PRIOR TO MID JUNE OR HAVE TO DO MORE TIME. INITIAL PLAN WAS FOR PTS SON TO RESUME CARE ONCE RELEASED. CM WILL CONT TO FOLLOW PLACEMENT'S AND D/C PLAN. [facility] WHO HAD ORIGINALLY OFFERED BED HAS DECLINED D/T ISSUES WITH INSURANCE AND SON/HCP.
[2021-06-01] MEDS: Thiamine HCL 100 MG TABLET PO (09:42)
[2021-06-01] MEDS: Folic Acid 1 MG TABLET PO (09:42)
[2021-06-01] MEDS: 0.9 % Sodium Chloride Flush 3 ML SYRINGE IVFLUSH ×3 (09:43→21:23)
[2021-06-01] MEDS: Amoxicillin/Potassium Clav 875 MG TABLET PO ×2 (09:43→21:23)
--- NOTE | 2021-06-01 10:46 | MHC.SL.DTX ---
Dysphagia Diet modifications: Last documented Solid diet consistencies: Grnd/Mech Altered (NDD2) Last documented Liquid consistency: [place] Thick Last documented Medication Administration: crushed in puree Changes made to current diet?: No Liquid Consistency and Strategies: Liquid Intake Recommendation: [place] Thick Compensatory Strategies for Safe Swallow: Small Sips No Straws Compensatory Strategies for Safe Swallow(b): Sitting Upright (90 deg) No Straw Small Bites and Sips Alternate Liquids/Solids Rate of Ingestion Change Oral Check Avoid Specific Foods Solid Food Consistency: Dietary Recommendations: Grnd/Mech Altered (NDD2) Additional Modifications to Solids: Recommend continued GROUND/MECH ALTERED (NDD2) solids and NECTAR THICK liquids with pills CRUSHED in PUREE. Recommend total supervision during meals, and assistance as needed. Continue aspiration precautions. Oral Medication Intake: Crushed with Puree Strategies and Precautions to be Taken for Safe Swallow: Sitting Upright (90 deg) No Straw Small Bites and Sips Alternate Liquids/Solids Rate of Ingestion Change Oral Check Avoid Specific Foods Supervision While Eating and/Drinking: Total Supervision (1:1) Foods to Avoid: Swallowing Recommended Treatments: Compens. Strategy Educat. Level of Impact on: Daily activities: Moderate Interpersonal interactions: Education: None Employment: None Community: Moderate Prognosis for Improvement: Fair Recommendation for Speech: Inpatient Speech Therapy Additional Comments: Treatment: Pt was seen for dysphagia treatment while seated upright in bed. This DISPLAY MECHANIC assisted LACE WINDER with re-positioning pt upright in bed. Pt required verbal cues to avoid moving back down toward the foot of his bed. Pt now on contact precautions for possible scabies, per RN. RN reported that pt has been tolerating his newly advanced diet consistency of NDD2 GROUND/MECHANICALLY ALTERED solids without overt s/s aspiration. Pt was presented with a tsp trial of thin water for which he elicited an immediate wet cough and wet vocal quality. No further overt s/s aspiration were noted with nectar thick liquids via cup sip. Pt self fed this date though required verbal cues to avoid continuous sips of liquid. Pt tolerated a moistened ground solid with min oral residuals that were cleared with the use of a liquid wash. Recommend continued GROUND/MECH ALTERED (NDD2) solids and maintain NECTAR THICK liquids, with pills CRUSHED in PUREE. Aspiration precautions and 1:1 assist/supervision remain warranted at this time. DISPLAY MECHANIC will continue to follow pt throughout his stay to determine the safest and least restrictive diet consistency. Assessment: Merchandise Processor Clinican/Clinical Fellow: No Supervisory Statement: I have reviewed and agree with the student/clinical fellow's documentation: N/A Speech Language Pathologist: Rose Joya M.A., CCC-DISPLAY MECHANIC
[2021-06-01 11:45] VITALS: BP 129/56; PULSE 65; RESP 18; TEMP 36.6; O2SAT 93
--- NOTE | 2021-06-01 13:09 | MHC.CM.PN ---
CM AND CM DESIGN SALES CONSULTANT HAVE ATTEMPTED TO CONTACT ALTERNATE HCP NANCY HARRIS D/T CM NOT RECEIVING A CALL BACK FROM PREVIOUS MESSAGE LEFT, A FEMALE ANSWERED PHONE # LISTED ON HCP HOWEVER SHE TOLD THIS CM IT WAS A WRONG NUMBER AND NOT NANCY. CM HAS RECEIVED CALL FROM EMILIE AT [facility] AND SHE REPORTED NEITHER CAMPUS HAS QUARENTINE BEDS AND THERE IS A WAIT LIST FOR THEM, [facility], [facility], [facility] AND 63 ADDITIONAL SNFS HAVE RESPONDED THEY CANNOT ACCOMMODATE PT, HAVE NO QUARENTINE BED OR DO NOT WANT TO BE INVOLVED W/SITUATION W/[facility]. CM WILL CONT TO FOLLOW D/C NEEDS.
--- NOTE | 2021-06-01 14:55 | MHC.CLN ---
F/U VARIABLE INTAKE. SEEN BY LOFTSMAN WITH DIET CONSISTENCY CHANGE. DIET=2 GRAM SODIUM, NDD2, NECTAR THICK LIQUIDS. ENSURE TID PROVIDES 1050 KCAL AND 48-60 G PROTEIN. CONTINUE CURRENT DIET AND SUPPLEMENT. CONTINUE TO FOLLOW.
--- NOTE | 2021-06-01 14:56 | P.PNIM_ITS ---
Subjective Subjective Date of Service: 06/01/21 Interval History: Aspiration pneumonia Review of Systems No new events, Sitting in the bed, eating breakfast. Denies any chest pain or shortness the breath. Physical Exam Vital Signs: Vital Signs: Last Vital Signs Temp 97.8 F 06/01/21 11:45 Pulse 65 06/01/21 11:45 Resp 18 06/01/21 11:45 BP 129/56 L 06/01/21 11:45 Pulse Ox 93 06/01/21 11:45 Body Mass Index 21.1 Eyes: Pupils equal, round and reactive to light.? Sclera nonicteric.? cvs: rrr, [id number] , res:? Fair air entry, slightly diminished at right lung base. abd: no rebound or guarding ,nt, bs present. ext pulses present , no cyanosis, lower ext rash neuro:? Alert oriented x1, moves all extremiti Objective Data Active Medications Amoxicillin/Clavulanate Potassium (Amoxicillin/Potassium Clav 875 Mg Tablet) 875 mg PO Q12H [facility] Last Admin: 06/01/21 09:43 Dose: 875 mg Documented by: AURORA Folic Acid (Folic Acid 1 Mg Tablet) 1 mg PO DAILY [facility] Last Admin: 06/01/21 09:42 Dose: 1 mg Documented by: AURORA Heparin Sodium (Porcine) (Heparin Sodium,Porcine 5,000 Unit/Ml Vial) 5,000 unit SUBCUT Q12H [facility] Last Admin: 06/01/21 05:11 Dose: 5,000 unit Documented by: ELODIA Hydralazine HCl (Hydralazine Hcl 20 Mg/Ml Vial) 10 mg IVPUSH Q6H PRN; Protocol PRN Reason: htn Olanzapine (Olanzapine 2.5 Mg Tablet) 2.5 mg PO BEDTIME [facility] Last Admin: 05/31/21 20:27 Dose: 2.5 mg Documented by: ELODIA Omeprazole (Omeprazole 20 Mg Capsule.) 20 mg PO DAILY@0630 [facility] Last Admin: 06/01/21 05:12 Dose: 20 mg Documented by: ELODIA Pharmacy Consult (Consult Rx Perform Med Rec) 1 each MISCELLANE ONCE PRN PRN Reason: Consult order Pharmacy Consult (Consult Rx Vancomycin Dosing) 1 each MISCELLANE DAILY PRN PRN Reason: Consult order Sodium Chloride (0.9 % Sodium Chloride Flush 3 Ml Syringe) 3 ml IVFLUSH QSHIFT [facility] Last Admin: 06/01/21 09:43 Dose: 3 ml Documented by: AURORA Thiamine HCl (Thiamine Hcl 100 Mg Tablet) 100 mg PO DAILY [facility] Last Admin: 06/01/21 09:42 Dose: 100 mg Documented by: AURORA Labs CBC & Chem 7: 05/30/21 05:39 06/01/21 05:12 Labs: Laboratory Results - last 24 hr 06/01/21 05:12 Estim Creat Clear Calc 44.1 Estimated GFR 56 Microbiology Microbiology Results: Microbiology 05/29/21 10:04 Blood Culture - Preliminary Blood - Venous No growth after 48 hours. 05/29/21 10:04 Blood Culture - Preliminary Blood - Venous No growth after 48 hours. Assessment and Plan (1) Aspiration pneumonia: Status: Acute Assessment and Plan: 1. Aspiration pneumonia Speech and Swallow-updated diet blood cultures prelim@48 hrs Switched IV Zosyn to p.o. Augmentin. Possible scabies:? Given permethrin treatment, will need another treatment in a week. 2. Pre renal azotemia:? Seems improving, off hydration. 3. Dementia possible with behavioral disturbances: Added dementia workup including syphilis-T pallidum pending, HIV, TSH, B12 fo late-seems fine, B1-pending. CT head as above. psych eval for behavioural issues noted -added zyprexa 4.Medial left heel and left heel. Stage 2 pressure injuries.: wound consult and nutritional eval added. 5. DVT prophylaxis with subQ heparin Patient awaiting placement-son is in the nursing home, case management working on placement, in addition also called psych if he can be candidate for [facility] psych placement here.. Quality Stroke Does the patient have a stroke diagnosis?: No VTE Prior VTE?: No VTE Risk Level:: Medical - moderate - high VTE Device Contraindication: N/A - Device Ordered VTE Drug Contraindication: N/A - Med Ordered
[2021-06-01 15:47] VITALS: BP 113/66; PULSE 73; RESP 18; TEMP 36.4; O2SAT 95
--- NOTE | 2021-06-01 17:06 | P.CNPS_ITS ---
History of Present Illness Chief Complaint: Toxic metabolic encephalopathy Pneumonia HPI Past Psychiatric History: dementia, per chart [facility] Medical History (Updated 05/30/21 @ 14:47 by Briseida Garcia MD) Rash Family History: unknown Social History: as per HPI Trauma History: unknown Diagnostics Vital Signs (24Hr): Vital Signs - 24 hr 05/31/21 20:00 06/01/21 00:00 06/01/21 03:27 Temperature 98.3 F 98.3 F 99.1 F Pulse Rate 65 65 64 Respiratory Rate 15 18 18 Blood Pressure 169/77 H 111/52 L 119/55 L Pulse Oximetry 95 93 92 06/01/21 08:00 06/01/21 11:45 06/01/21 15:47 Temperature 97.5 F 97.8 F 97.5 F Pulse Rate 59 65 73 Respiratory Rate 18 18 18 Blood Pressure 123/59 L 129/56 L 113/66 Pulse Oximetry 92 93 95 Body Mass Index 21.1 Labs Results: 05/30/21 05:39 06/01/21 05:12 Labs: Laboratory Results - last 48 hr 05/30/21 05/31/21 06/01/21 17:09 05:17 05:12 Sodium 145 Creatinine 1.04 1.25 Estim Creat Clear Calc 53.0 44.1 Estimated GFR > 60 56 Imaging Radiology Impressions: ITS Impressions Chest X-Ray 05/23/21 16:57 IMPRESSION: No acute finding Chest X-Ray 05/29/21 08:24 IMPRESSION: New airspace opacities in the right lung base worrisome for focal pneumonia or aspiration. Recommend a follow-up to ensure resolution. Questionable small left pleural effusion versus pleural thickening. Head CT 05/29/21 10:23 IMPRESSION: 1. No evidence of acute intracranial hemorrhage or edematous territorial infarction. 2. 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 3. Redemonstration of complete opacification of the right maxillary sinus with associated bony remodeling. Medications Medications Current Medications Amoxicillin/Clavulanate Potassium (Amoxicillin/Potassium Clav 875 Mg Tablet) 875 mg PO Q12H [facility] Last Admin: 06/01/21 09:43 Dose: 875 mg Documented by: Folic Acid (Folic Acid 1 Mg Tablet) 1 mg PO DAILY [facility] Last Admin: 06/01/21 09:42 Dose: 1 mg Documented by: Heparin Sodium (Porcine) (Heparin Sodium,Porcine 5,000 Unit/Ml Vial) 5,000 unit SUBCUT Q12H [facility] Last Admin: 06/01/21 16:08 Dose: 5,000 unit Documented by: Hydralazine HCl (Hydralazine Hcl 20 Mg/Ml Vial) 10 mg IVPUSH Q6H PRN; Protocol PRN Reason: htn Olanzapine (Olanzapine 2.5 Mg Tablet) 2.5 mg PO BEDTIME [facility] Last Admin: 05/31/21 20:27 Dose: 2.5 mg Documented by: Omeprazole (Omeprazole 20 Mg Capsule.Dr) 20 mg PO DAILY@0630 [facility] Last Admin: 06/01/21 05:12 Dose: 20 mg Documented by: Pharmacy Consult (Consult Rx Perform Med Rec) 1 each MISCELLANE ONCE PRN PRN Reason: Consult order Pharmacy Consult (Consult Rx Vancomycin Dosing) 1 each MISCELLANE DAILY PRN PRN Reason: Consult order Sodium Chloride (0.9 % Sodium Chloride Flush 3 Ml Syringe) 3 ml IVFLUSH QSHIFT [facility] Last Admin: 06/01/21 16:08 Dose: 3 ml Documented by: Thiamine HCl (Thiamine Hcl 100 Mg Tablet) 100 mg PO DAILY [facility] Last Admin: 06/01/21 09:42 Dose: 100 mg Documented by: Allergies Allergies Allergy/AdvReac Type Severity Reaction Status Date / Time No Known Allergies Allergy Verified 12/24/20 08:35 [No Known Allergies*] Assessment & Plan I spent minutes with the patient and/or on the patient floor today, greater than?50% of which was spent counseling/coordinating care.
[2021-06-01 19:36] VITALS: BP 143/65; PULSE 60; RESP 18; TEMP 36.6; O2SAT 96
[2021-06-01] MEDS: OLANZapine 2.5 MG TABLET PO (21:23)
[2021-06-02] VITALS: BP 184/72; PULSE 60; RESP 17; TEMP 36.2; O2SAT 95
[2021-06-02 04:00] VITALS: BP 142/61; PULSE 62; RESP 17; TEMP 36.6; O2SAT 95
[2021-06-02] MEDS: Heparin Sodium,Porcine 5,000 UNIT/ML VIAL 5000 UNIT SUBCUT ×2 (04:27→15:14)
[2021-06-02 06:03] LABS: Estimated Glomerular Filt Rate > 60
[2021-06-02] MEDS: Omeprazole 20 MG CAPSULE.DR PO (06:44)
[2021-06-02 08:00] VITALS: BP 120/58; PULSE 74; RESP 20; TEMP 35.5; O2SAT 96
[2021-06-02] MEDS: Thiamine HCL 100 MG TABLET PO (09:45)
[2021-06-02] MEDS: Folic Acid 1 MG TABLET PO (09:45)
[2021-06-02] MEDS: Amoxicillin/Potassium Clav 875 MG TABLET PO ×2 (09:45→21:56)
[2021-06-02] MEDS: 0.9 % Sodium Chloride Flush 3 ML SYRINGE IVFLUSH ×2 (09:46→15:14)
[2021-06-02 11:18] VITALS: BP 110/56; PULSE 67; RESP 19; TEMP 35.5; O2SAT 96
--- NOTE | 2021-06-02 13:54 | P.PNIM_ITS ---
Subjective Subjective Date of Service: 06/02/21 Interval History: asp pneumonia ,scabies Review of Systems Denies any shortness of breath or any pain. Answers few questions only at baseline. Physical Exam Vital Signs: Vital Signs: Last Vital Signs Temp 96 F L 06/02/21 11:18 Pulse 67 06/02/21 11:18 Resp 19 06/02/21 11:18 BP 110/56 L 06/02/21 11:18 Pulse Ox 96 06/02/21 11:18 Body Mass Index 21.1 Eyes: Pupils equal, round and reactive to light.? Sclera nonicteric.? cvs: rrr, [id number] , res:? Fair air entry, slightly diminished at right lung base. abd: no rebound or guarding ,nt, bs present. ext pulses present , no cyanosis, lower ext rash neuro:? Alert oriented x1, moves all extremities. Objective Data Active Medications Amoxicillin/Clavulanate Potassium (Amoxicillin/Potassium Clav 875 Mg Tablet) 875 mg PO Q12H [facility] Last Admin: 06/02/21 09:45 Dose: 875 mg Documented by: COTEMA Folic Acid (Folic Acid 1 Mg Tablet) 1 mg PO DAILY [facility] Last Admin: 06/02/21 09:45 Dose: 1 mg Documented by: JULIANEMA Heparin Sodium (Porcine) (Heparin Sodium,Porcine 5,000 Unit/Ml Vial) 5,000 unit SUBCUT Q12H [facility] Last Admin: 06/02/21 04:27 Dose: 5,000 unit Documented by: MARY Hydralazine HCl (Hydralazine Hcl 20 Mg/Ml Vial) 10 mg IVPUSH Q6H PRN; Protocol PRN Reason: htn Olanzapine (Olanzapine 2.5 Mg Tablet) 2.5 mg PO BEDTIME [facility] Last Admin: 06/01/21 21:23 Dose: 2.5 mg Documented by: BRIANNA Omeprazole (Omeprazole 20 Mg Capsule.) 20 mg PO DAILY@0630 [facility] Last Admin: 06/02/21 06:44 Dose: 20 mg Documented by: MARY Pharmacy Consult (Consult Rx Perform Med Rec) 1 each MISCELLANE ONCE PRN PRN Reason: Consult order Pharmacy Consult (Consult Rx Vancomycin Dosing) 1 each MISCELLANE DAILY PRN PRN Reason: Consult order Sodium Chloride (0.9 % Sodium Chloride Flush 3 Ml Syringe) 3 ml IVFLUSH QSHIFT [facility] Last Admin: 06/02/21 09:46 Dose: 3 ml Documented by: COTEMA Thiamine HCl (Thiamine Hcl 100 Mg Tablet) 100 mg PO DAILY [facility] Last Admin: 06/02/21 09:45 Dose: 100 mg Documented by: COTEMA Labs CBC & Chem 7: 05/30/21 05:39 06/02/21 05:29 Labs: Laboratory Results - last 24 hr 06/02/21 05:29 Estim Creat Clear Calc 51.0 Estimated GFR > 60 Assessment and Plan (1) Aspiration pneumonia: Status: Acute (2) Dementia: Status: Acute (3) Pneumonia: Status: Acute Assessment and Plan: 1. Aspiration pneumonia Speech and Swallow-updated diet blood cultures prelim@48 hrs Switched IV Zosyn to p.o. Augmentin. Possible scabies:? Given permethrin treatment, will need another treatment in a week around 06/06. 2. Pre renal azotemia:? Seems improving, off hydration. 3. Dementia possible with behavioral disturbances: Added dementia workup including syphilis-T pallidum pending, HIV, TSH, B12 folate-seems fine, B1-pending. CT head as above. psych eval for behavioural issues noted -added zyprexa 4.Medial left heel and left heel. Stage 2 pressure injuries.: wound consult and nutritional following. 5. DVT prophylaxis with subQ heparin Patient awaiting placement-son is in the half-way, case management working on placement, in addition also called psych if he can be candidate for [facility] placement here. Quality Stroke Does the patient have a stroke diagnosis?: No VTE Prior VTE?: No VTE Risk Level:: Medical - moderate - high VTE Device Contraindication: N/A - Device Ordered VTE Drug Contraindication: N/A - Med Ordered
[2021-06-02 16:00] VITALS: BP 120/61; PULSE 64; RESP 18; TEMP 36.2; O2SAT 96
[2021-06-02 17:41] LABS: Treponema pallidum Ab FTA ABS Nonreactive (Nonreactive)
[2021-06-02 20:00] VITALS: BP 133/69; PULSE 71; RESP 18; TEMP 36.8; O2SAT 99
[2021-06-02] MEDS: OLANZapine 2.5 MG TABLET PO (21:56)
[2021-06-03] VITALS: BP 122/59; PULSE 40; RESP 18; TEMP 36.6; O2SAT 99
[2021-06-03 04:00] VITALS: BP 128/60; PULSE 53; RESP 18; TEMP 36.8; O2SAT 99
[2021-06-03] MEDS: Omeprazole 20 MG CAPSULE.DR PO (06:50)
[2021-06-03 07:21] VITALS: BP 132/56; PULSE 70; RESP 18; TEMP 36; O2SAT 95
[2021-06-03] MEDS: 0.9 % Sodium Chloride Flush 3 ML SYRINGE IVFLUSH (07:39)
[2021-06-03] MEDS: Thiamine HCL 100 MG TABLET PO (07:40)
[2021-06-03] MEDS: Amoxicillin/Potassium Clav 875 MG TABLET PO ×2 (07:40→21:26)
[2021-06-03] MEDS: Folic Acid 1 MG TABLET PO (07:40)
--- NOTE | 2021-06-03 10:15 | HO.PM.IMPN ---
Subjective Subjective Date of Service: 06/03/21 Interval History: Aspiration pneumonia, dementia. Review of Systems Patient very pleasant, sitting in the bed, eating Overnight no new complaints. Physical Exam Vital Signs: Vital Signs: Last Vital Signs Temp 96.8 F 06/03/21 07:21 Pulse 70 06/03/21 07:21 Resp 18 06/03/21 07:21 BP 132/56 L 06/03/21 07:21 Pulse Ox 95 06/03/21 07:21 Body Mass Index 21.1 Eyes: Pupils equal, round and reactive to light.? Sclera nonicteric.? cvs: rrr, [id number] , res:? Fair air entry, slightly diminished at right lung base. abd: no rebound or guarding ,nt, bs present. ext pulses present , no cyanosis, lower ext rash neuro:? Alert oriented x1, moves all extremities. Objective Data Active Medications Amoxicillin/Clavulanate Potassium (Amoxicillin/Potassium Clav 875 Mg Tablet) 875 mg PO Q12H [facility] BEDS AT [facility] Last Admin: 06/03/21 07:40 Dose: 875 mg Documented by: COTEMA Folic Acid (Folic Acid 1 Mg Tablet) 1 mg PO DAILY [facility]S [facility]CLUDE 234 BEDS AT THE [facility] Last Admin: 06/03/21 07:40 Dose: 1 mg Documented by: COTEMA Heparin Sodium (Porcine) (Heparin Sodium,Porcine 5,000 Unit/Ml Vial) 5,000 unit SUBCUT Q12H [facility]S [facility]CLUDE 234 BEDS AT THE [facility] Last Admin: 06/03/21 05:32 Dose: Not Given Documented by: BENITA Non-Admin Reason: Patient Refused Hydralazine HCl (Hydralazine Hcl 20 Mg/Ml Vial) 10 mg IVPUSH Q6H PRN; Protocol PRN Reason: htn Olanzapine (Olanzapine 2.5 Mg Tablet) 2.5 mg PO BEDTIME [facility]S [facility]CLUDE 234 BEDS AT [facility] Last Admin: 06/02/21 21:56 Dose: 2.5 mg Documented by: BENITA Omeprazole (Omeprazole 20 Mg Capsule.) 20 mg PO DAILY@0630 [facility]S [facility]CLUDE 234 BEDS AT [facility] Last Admin: 06/03/21 06:50 Dose: 20 mg Documented by: BENITA Pharmacy Consult (Consult Rx Perform Med Rec) 1 each MISCELLANE ONCE PRN PRN Reason: Consult order Pharmacy Consult (Consult Rx Vancomycin Dosing) 1 each MISCELLANE DAILY PRN PRN Reason: Consult order Sodium Chloride (0.9 % Sodium Chloride Flush 3 Ml Syringe) 3 ml IVFLUSH QSHIFT [facility]S INCLUDE 234 BEDS AT THE [facility] Last Admin: 06/03/21 07:39 Dose: 3 ml Documented by: COTEMA Thiamine HCl (Thiamine Hcl 100 Mg Tablet) 100 mg PO DAILY [facility]S [facility]CLUDE 234 BEDS AT [facility] Last Admin: 06/03/21 07:40 Dose: 100 mg Documented by: COTEMA Labs CBC & Chem 7: 05/30/21 05:39 06/02/21 05:29 Labs: Laboratory Results - last 24 hr 05/29/21 16:29 T.pallidum Ab (FTA-ABS) Nonreactive Assessment and Plan (1) Aspiration pneumonia: Status: Acute (2) Dementia: Status: Acute Assessment and Plan: 1. Aspiration pneumonia Speech and Swallow-updated diet blood cultures prelim@48 hrs Switched IV Zosyn to p.o. Augmentin. Possible scabies:? Given permethrin treatment, will need another treatment in a week around 06/06. 2. Pre renal azotemia:? Seems improving, off hydration. 3. Dementia possible with behavioral disturbances: Added dementia workup including syphilis-T pallidum pending, HIV, TSH, B12 folate-seems fine, B1-pending. CT head as above. psych eval for behavioural issues noted -added zyprexa 4.Medial left heel and left heel. Stage 2 pressure injuries.: wound consult and nutritional following. 5. DVT prophylaxis with subQ heparin Patient awaiting placement-son is in the?[facility], case management working on placement, in addition also called psych if he can be candidate for [facility] placement here-discussed with the care team- not candidate for geripsych placement in house. Quality Stroke Does the patient have a stroke diagnosis?: No VTE Prior VTE?: No VTE Risk Level:: Medical - moderate - high VTE Device Contraindication: N/A - Device Ordered VTE Drug Contraindication: N/A - Med Ordered
[2021-06-03 11:16] VITALS: BP 122/64; PULSE 96; RESP 20; TEMP 36.6; O2SAT 98
--- NOTE | 2021-06-03 13:28 | PC.NURSE ---
Patient pulled out IV access. Dr. Escobar made aware. Dr. Escobar stated it was okay for patient to have no IV access.
[2021-06-03] MEDS: Heparin Sodium,Porcine 5,000 UNIT/ML VIAL 5000 UNIT SUBCUT (16:39)
[2021-06-03] MEDS: hydrOXYzine HCL 50 MG/ML VIAL 25 MG IM (17:28)
[2021-06-03] MEDS: OLANZapine 5 MG TABLET PO (21:26)
[2021-06-04] VITALS: BP 104/49; PULSE 69; RESP 16; TEMP 36.5; O2SAT 99
[2021-06-04 04:00] VITALS: RESP 16
[2021-06-04] MEDS: Folic Acid 1 MG TABLET PO (09:31)
[2021-06-04] MEDS: Thiamine HCL 100 MG TABLET PO (09:31)
[2021-06-04] MEDS: Amoxicillin/Potassium Clav 875 MG TABLET PO ×2 (09:31→20:35)
--- NOTE | 2021-06-04 10:35 | P.PNIM_ITS ---
Subjective Subjective Date of Service: 06/04/21 Interval History: aspirational pneumonia, dementia with behavioural disturbances Physical Exam Vital Signs: Vital Signs: Last Vital Signs Temp 97.7 F 06/04/21 00:00 Pulse 69 06/04/21 00:00 Resp 16 06/04/21 04:00 BP 104/49 L 06/04/21 00:00 Pulse Ox 99 06/04/21 00:00 Body Mass Index 21.1 Eyes: Pupils equal, round and reactive to light.? Sclera nonicteric.? cvs: rrr, [id number] , res:? Fair air entry, slightly diminished at right lung base. abd: no rebound or guarding ,nt, bs present. ext pulses present , no cyanosis, lower ext rash neuro:? Alert oriented x1, moves all extremities. Objective Data Active Medications Amoxicillin/Clavulanate Potassium (Amoxicillin/Potassium Clav 875 Mg Tablet) 875 mg PO Q12H [facility] Last Admin: 06/04/21 09:31 Dose: 875 mg Documented by: SARA Folic Acid (Folic Acid 1 Mg Tablet) 1 mg PO DAILY [facility] Last Admin: 06/04/21 09:31 Dose: 1 mg Documented by: SARA Heparin Sodium (Porcine) (Heparin Sodium,Porcine 5,000 Unit/Ml Vial) 5,000 unit SUBCUT Q12H [facility] Last Admin: 06/04/21 03:56 Dose: Not Given Documented by: ARELY Non-Admin Reason: Patient Refused Hydralazine HCl (Hydralazine Hcl 20 Mg/Ml Vial) 10 mg IVPUSH Q6H PRN; Protocol PRN Reason: htn Hydroxyzine HCl (Hydroxyzine Hcl 50 Mg/Ml Vial) 25 mg IM Q6H PRN PRN Reason: anxiety/restlessness Last Admin: 06/03/21 17:28 Dose: 25 mg Documented by: COTEMA Olanzapine (Olanzapine 5 Mg Tablet) 5 mg PO BEDTIME [facility] Last Admin: 06/03/21 21:26 Dose: 5 mg Documented by: ARELY Omeprazole (Omeprazole 20 Mg Capsule.) 20 mg PO DAILY@0630 [facility] Last Admin: 06/04/21 06:35 Dose: Not Given Documented by: ARELY Non-Admin Reason: Patient Refused Pharmacy Consult (Consult Rx Perform Med Rec) 1 each MISCELLANE ONCE PRN PRN Reason: Consult order Pharmacy Consult (Consult Rx Vancomycin Dosing) 1 each MISCELLANE DAILY PRN PRN Reason: Consult order Sodium Chloride (0.9 % Sodium Chloride Flush 3 Ml Syringe) 3 ml IVFLUSH QSHIFT [facility] Last Admin: 06/04/21 09:29 Dose: Not Given Documented by: SARA Non-Admin Reason: No Access Thiamine HCl (Thiamine Hcl 100 Mg Tablet) 100 mg PO DAILY [facility] Last Admin: 06/04/21 09:31 Dose: 100 mg Documented by: SARA Labs CBC & Chem 7: 05/30/21 05:39 06/02/21 05:29 Microbiology Microbiology Results: Microbiology 05/29/21 10:04 Blood Culture - Final Blood - Venous No growth after 5 days. 05/29/21 10:04 Blood Culture - Final Blood - Venous No growth after 5 days. Assessment and Plan (1) Aspiration pneumonia: Status: Acute (2) Dementia: Status: Acute Assessment and Plan: 1. Aspiration pneumonia Speech and Swallow-updated diet blood cultures prelim@48 hrs Switched IV Zosyn to p.o. Augmentin. Possible scabies:? Given permethrin treatment, will need another treatment in a week around 06/06. 2. Pre renal azotemia:? Seems improving, off hydration. 3. Dementia possible with behavioral disturbances: Added dementia workup including syphilis-T pallidum pending, HIV, TSH, B12 folate-seems fine, B1-pending. CT head as above. psych eval for behavioural issues noted -continue zyprexa 4.Medial left heel and left heel. Stage 2 pressure injuries.: wound consult and nutritional following. 5. DVT prophylaxis with subQ heparin Patient awaiting placement-son is in the[facility], case management working on placement, in addition also called psych if he can be candidate for [facility] placement here-discussed with the care team- not candidate for geripsych placement in house. Quality Stroke Does the patient have a stroke diagnosis?: No VTE Prior VTE?: No VTE Risk Level:: Medical - moderate - high VTE Device Contraindication: N/A - Device Ordered VTE Drug Contraindication: N/A - Med Ordered
--- NOTE | 2021-06-04 11:40 | P.PNIM_ITS ---
Subjective Subjective Date of Service: 06/04/21 Interval History: asp pneumonia, dementia with behavioral disturbances. Review of Systems No new events overnight Seems near his baseline, denies any chest pain or shortness of breath. Physical Exam Vital Signs: Vital Signs: Last Vital Signs Temp 97.7 F 06/04/21 00:00 Pulse 69 06/04/21 00:00 Resp 16 06/04/21 04:00 BP 104/49 L 06/04/21 00:00 Pulse Ox 99 06/04/21 00:00 Body Mass Index 21.1 Eyes: Pupils equal, round and reactive to light.? Sclera nonicteric.? cvs: rrr, [id number] , res:? Fair air entry, slightly diminished at right lung base. abd: no rebound or guarding ,nt, bs present. ext pulses present , no cyanosis, lower ext rash neuro:? Alert oriented x1, moves all extremities. Objective Data Active Medications Amoxicillin/Clavulanate Potassium (Amoxicillin/Potassium Clav 875 Mg Tablet) 875 mg PO Q12H [facility] Last Admin: 06/04/21 09:31 Dose: 875 mg Documented by: SARA Folic Acid (Folic Acid 1 Mg Tablet) 1 mg PO DAILY [facility] Last Admin: 06/04/21 09:31 Dose: 1 mg Documented by: SARA Heparin Sodium (Porcine) (Heparin Sodium,Porcine 5,000 Unit/Ml Vial) 5,000 unit SUBCUT Q12H [facility] Last Admin: 06/04/21 03:56 Dose: Not Given Documented by: ARELY Non-Admin Reason: Patient Refused Hydralazine HCl (Hydralazine Hcl 20 Mg/Ml Vial) 10 mg IVPUSH Q6H PRN; Protocol PRN Reason: htn Hydroxyzine HCl (Hydroxyzine Hcl 50 Mg/Ml Vial) 25 mg IM Q6H PRN PRN Reason: anxiety/restlessness Last Admin: 06/03/21 17:28 Dose: 25 mg Documented by: COTEMA Olanzapine (Olanzapine 5 Mg Tablet) 5 mg PO BEDTIME [facility] Last Admin: 06/03/21 21:26 Dose: 5 mg Documented by: ARELY Omeprazole (Omeprazole 20 Mg Capsule.Dr) 20 mg PO DAILY@0630 [facility] Last Admin: 06/04/21 06:35 Dose: Not Given Documented by: ARELY Non-Admin Reason: Patient Refused Pharmacy Consult (Consult Rx Perform Med Rec) 1 each MISCELLANE ONCE PRN PRN Reason: Consult order Pharmacy Consult (Consult Rx Vancomycin Dosing) 1 each MISCELLANE DAILY PRN PRN Reason: Consult order Sodium Chloride (0.9 % Sodium Chloride Flush 3 Ml Syringe) 3 ml IVFLUSH QSHIFT [facility] Last Admin: 06/04/21 09:29 Dose: Not Given Documented by: SARA Non-Admin Reason: No Access Thiamine HCl (Thiamine Hcl 100 Mg Tablet) 100 mg PO DAILY [facility] Last Admin: 06/04/21 09:31 Dose: 100 mg Documented by: SARA Labs CBC & Chem 7: 05/30/21 05:39 06/02/21 05:29 Microbiology Microbiology Results: Microbiology 05/29/21 10:04 Blood Culture - Final Blood - Venous No growth after 5 days. 05/29/21 10:04 Blood Culture - Final Blood - Venous No growth after 5 days. Assessment and Plan (1) Aspiration pneumonia: Status: Acute (2) Dementia: Status: Acute Assessment and Plan: 1. Aspiration pneumonia Speech and Swallow-updated diet blood cultures prelim@48 hrs Switched IV Zosyn to p.o. Augmentin day11/01. Possible scabies:? Given permethrin treatment, will need another treatment in a week around 06/06. 2. Pre renal azotemia:? Seems improving, off hydration. 3. Dementia possible with behavioral disturbances: Added dementia workup including syphilis-T pallidum -nonreactive, HIV, TSH, B12 folate-seems fine, B1-pending. CT head as above. psych eval for behavioural issues noted -continue zyprexa 4.Medial left heel and left heel. Stage 2 pressure injuries.: wound consult and nutritional following. 5. DVT prophylaxis with subQ heparin Patient awaiting placement-son is in the[facility], case management working on placement, in addition also called psych if he can be candidate for [facility] placement here-discussed with the care team- not candidate for geripsych placement in house. Quality Stroke Does the patient have a stroke diagnosis?: No VTE Prior VTE?: No VTE Risk Level:: Medical - moderate - high VTE Device Contraindication: N/A - Device Ordered VTE Drug Contraindication: N/A - Med Ordered
[2021-06-04 11:42] VITALS: BP 129/62; PULSE 56; RESP 18; TEMP 36.5; O2SAT 98
[2021-06-04 12:06] LABS: Vitamin B1 11 nmol/L (8-30)
--- NOTE | 2021-06-04 14:06 | MHC.CM.PN ---
MR REVIEWED, PT REMAINS MEDICALLY CLEARED, PT DID WAS TX'D FOR SCABIES W/PERMETHRIN ON 05/30/21 AND WILL POSSIBLY HAVE A SECOND TX ON 06/06/21. CM HAS RECEIVED 4 MORE DENIALS FROM SNFS SINCE FRIDAY WHICH BRINGS TOTAL TO 67. CASE DISCUSSED W/CM DIRECTOR WHO SPOKE [facility] ATTY AND WE WILL BE GOING FOR TEMPORARY GUARDIANSHIP IN CASE PT'S SON IS NOT RELEASED FROM [facility] MID JUNE. CM WILL CONT TO FOLLOW D/C NEEDS.
--- NOTE | 2021-06-04 14:21 | MHC.CLN ---
F/U VARIABLE INTAKE AT MEALS, 25-100% WITH MOST MEALS 100%. DIET =2 GRAM SODIUM, NDD2, NECTAR THICK LIQUIDS. CONTINUE ENSURE TID (1050 KCAL, 48-60 G PROTEIN).
--- NOTE | 2021-06-04 15:04 | MHC.SL.DTX ---
Dysphagia Diet modifications: Last documented Solid diet consistencies: Grnd/Mech Altered (NDD2) Last documented Liquid consistency: [place] Thick Last documented Medication Administration:NPO Changes made to current diet?: No Liquid Consistency and Strategies: Liquid Intake Recommendation: [place] Thick Compensatory Strategies for Safe Swallow: Small Sips No Straws Compensatory Strategies for Safe Swallow(b): Sitting Upright (90 deg) No Straw Small Bites and Sips Alternate Liquids/Solids Rate of Ingestion Change Oral Check Avoid Specific Foods Solid Food Consistency: Dietary Recommendations: Grnd/Mech Altered (NDD2) Additional Modifications to Solids: Recommend UPGRADE GROUND/MECH ALTERED (NDD2) solids and maintain NECTAR THICK liquids with pills CRUSHED in PUREE. Recommend total supervision during meals, and assistance as needed. Continue aspiration precautions. Oral Medication Intake: Crushed with Puree Strategies and Precautions to be Taken for Safe Swallow: Sitting Upright (90 deg) No Straw Small Bites and Sips Alternate Liquids/Solids Rate of Ingestion Change Oral Check Avoid Specific Foods Supervision While Eating and/Drinking: Total Supervision (1:1) Foods to Avoid: Swallowing Recommended Treatments: Compens. Strategy Educat. Level of Impact on: Daily activities: Moderate Interpersonal interactions: Education: None Employment: None Community: Moderate Prognosis for Improvement: Fair Recommendation for Speech: Inpatient Speech Therapy Comment: Pt presented to the ED 05/29 for placement as pt's son/warhead maintenance specialist was recently incarcerated. An incidental finding of aspiration pneumonia was noted upon completion of a chest x-ray. Pt also has a diagnosis of dementia with behavioral disturbances. Pt current diet is Ground/Mechanical (NDD2) with nectar thick liquid, with total supervision during feeding, per FREELANCE INTERPRETER/TRANSLATOR recommendations made 06/01. Frequency/Duration: Date Range for Service Req: Timeline to reassess: Additional Comments: Treatment: Pt was seen this morning for dysphagia treatment while seated upright in bed. Pt's breakfast meal was present at bedside, untouched and he was asleep but easily roused and cooperative with treatment. Pt oriented X1, confused but following directions. Pt was presented with a tsp trials of nectar thick liquid, with mild delay of oral phase, laryngeal elevation on swallow wnl, vocal quality clear after repeat swallows. Pt was presented with puree, with similar mild delay of oral phase, no residual in oral cavity after swallow, laryngeal phase WNL. Pt also managed soft chopped solid (pears) with mild delay of oral phase only. No over signs of aspiration noted on consistencies. Noted at bedside was a pitcher of water, a cup of water with a straw. Nurse was advised, and water was removed by this therapist from bedside. Pt tolerating current recommended diet consistencies on this evaluation. He will need to continue to have aspiration precautions and 1:1 assist/supervision during meals. Pt may need encouragement and orientation to meal routines while in hospital. Recommend continued GROUND/MECH ALTERED (NDD2) solids and maintain NECTAR THICK liquids, with pills CRUSHED in PUREE. Aspiration precautions and 1:1 assist/supervision remain warranted at this time. FREELANCE INTERPRETER/TRANSLATOR will continue to follow pt throughout his stay to determine the safest and least restrictive diet consistency. Behavioral Intervention Specialist Clinican/Clinical Fellow: No Supervisory Statement: I have reviewed and agree with the student/clinical fellow's documentation: N/A Speech Language Pathologist: Cele Hopkins M.A., CCC-FREELANCE INTERPRETER/TRANSLATOR
[2021-06-04 15:34] VITALS: BP 140/86; PULSE 49; RESP 18; TEMP 36.8; O2SAT 96
[2021-06-04] MEDS: Heparin Sodium,Porcine 5,000 UNIT/ML VIAL 5000 UNIT SUBCUT (17:23)
[2021-06-04 19:15] VITALS: BP 129/63; PULSE 65; RESP 18; TEMP 36.6; O2SAT 96
[2021-06-04] MEDS: OLANZapine 5 MG TABLET PO (20:35)
[2021-06-04 23:50] VITALS: BP 131/77; PULSE 56; RESP 17; TEMP 36.4; O2SAT 97
[2021-06-05 04:00] VITALS: BP 129/63; PULSE 68; RESP 15; TEMP 36.6; O2SAT 97
[2021-06-05] MEDS: Omeprazole 20 MG CAPSULE.DR PO (06:20)
[2021-06-05 08:00] VITALS: BP 108/53; PULSE 64; RESP 17; TEMP 36.5; O2SAT 95
--- NOTE | 2021-06-05 08:20 | P.PNIM_ITS ---
Subjective Subjective Date of Service: 06/05/21 Interval History: Patient seen and examined at bedside, reporting pain in his left knee, no redness, no warmth, no limitation to range of motion. Denies any history of gout. No chest pain, no shortness of breath, no abdominal pain, no diarrhea or constipation, no urinary symptoms and no extremity swelling Review of Systems Review of Systems: Yes all other systems are reviewed and are negative Physical Exam Vital Signs: Vital Signs: Last Vital Signs Temp 97.7 F 06/05/21 08:00 Pulse 64 06/05/21 08:00 Resp 17 06/05/21 08:00 BP 108/53 L 06/05/21 08:00 Pulse Ox 95 06/05/21 08:00 Body Mass Index 21.1 Const: General: cooperative and no acute distress Orientatio n/consciousness: patient oriented x3 Eyes: General: appearance normal, both eyes and all related structures Resp: Effort & Inspection: normal respiratory effort Auscultation: clear to auscultation bilaterally Cardio: Rate: regular rate Rhythm: regular rhythm GI: Palpation (GI): Soft to palpation Neuro: General: patient oriented x3 Cognition (Neuro): normal cognition Extrem: Other: Left knee examined, no erythema, no warmth, no tenderness, no edema, no limited range of motion General: Yes normal to inspection Objective Data Active Medications Amoxicillin/Clavulanate Potassium (Amoxicillin/Potassium Clav 875 Mg Tablet) 875 mg PO Q12H [facility] Last Admin: 06/04/21 20:35 Dose: 875 mg Documented by: ARELY Folic Acid (Folic Acid 1 Mg Tablet) 1 mg PO DAILY [facility] Last Admin: 06/04/21 09:31 Dose: 1 mg Documented by: SARA Heparin Sodium (Porcine) (Heparin Sodium,Porcine 5,000 Unit/Ml Vial) 5,000 unit SUBCUT Q12H [facility] Last Admin: 06/05/21 03:48 Dose: Not Given Documented by: ARELY Non-Admin Reason: Patient Refused Hydroxyzine HCl (Hydroxyzine Hcl 50 Mg/Ml Vial) 25 mg IM Q6H PRN PRN Reason: anxiety/restlessness Last Admin: 06/03/21 17:28 Dose: 25 mg Documented by: COTEMA Olanzapine (Olanzapine 5 Mg Tablet) 5 mg PO BEDTIME [facility] Last Admin: 06/04/21 20:35 Dose: 5 mg Documented by: ARELY Omeprazole (Omeprazole 20 Mg Capsule.Dr) 20 mg PO DAILY@0630 [facility] Last Admin: 06/05/21 06:20 Dose: 20 mg Documented by: ARELY Pharmacy Consult (Consult Rx Perform Med Rec) 1 each MISCELLANE ONCE PRN PRN Reason: Consult order Pharmacy Consult (Consult Rx Vancomycin Dosing) 1 each MISCELLANE DAILY PRN PRN Reason: Consult order Sodium Chloride (0.9 % Sodium Chloride Flush 3 Ml Syringe) 3 ml IVFLUSH QSHIFT [facility] Last Admin: 06/05/21 00:13 Dose: Not Given Documented by: ARELY Non-Admin Reason: No Access Thiamine HCl (Thiamine Hcl 100 Mg Tablet) 100 mg PO DAILY [facility] Last Admin: 06/04/21 09:31 Dose: 100 mg Documented by: SARA Labs CBC & Chem 7: 05/30/21 05:39 06/05/21 08:41 Labs: Laboratory Results - last 24 hr 05/29/21 16:28 Vitamin B1 11 Assessment and Plan (1) Aspiration pneumonia: Status: Acute (2) Dementia: Status: Acute (3) Adult failure to thrive: Status: Acute (4) Dementia with behavioral disturbance: Status: Acute Assessment and Plan: 1. Aspiration pneumonia - no hypoxia - seen by Speech and Swallow- diet has been updated with no further report of witnessed aspiration - continue Augmentin day 5 - Blood cultures negative 3. 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 for pain - will monitor for worsening erythema and warmth consider cellulitis versus gout if worsens 3. Possible scabies:? - Given permethrin treatment, will need another treatment in a week around 06/06. 4. Pre renal azotemia:? - Improved- almost back to baseline cr - encourage IV hydration 5. Dementia with possible with behavioral disturbances: - Actue dementia workup -ve including syphilis-T pallidum -nonreactive, HIV, TSH, B12 folate-seems fine, B1-pending. - CT head showed no evidence of acute intracranial hemorrhage or edematous te rritorial infarction, chronic microangiopathy and generalized cerebral volume loss with multiple bilateral chronic lacunar infarcts -psych eval for behavioural issues noted -continue zyprexa - awaiting placement 4. Stage II pressure ulcer in the left heel, continue wound care 5. DVT prophylaxis with subQ heparin Disposition: Patient awaiting placement-son is in the?usp, case management working on placement, in addition also called psych if he can be candidate for [facility] psych placement here-discussed with the care team- not candidate for geripsych placement in house. Quality Stroke Does the patient have a stroke diagnosis?: No VTE Prior VTE?: No VTE Risk Level:: Medical - moderate - high VTE Device Contraindication: N/A - Device Ordered VTE Drug Contraindication: N/A - Med Ordered
--- NOTE | 2021-06-05 08:32 | P.CDIC_ITS ---
CDI Concurrent Query Documentation Clarification: PHYSICIAN'S DOCUMENTATION REQUEST Date of Query: 06/05/21 0833 Patient Name: Xu Mak Admit Date: 05/29/21 Dear Doctor, A review of the medical record indicates additional documentation may be needed. Please review below and update the documentation accordingly. Clinical Indicators: Risk Factors/Clinical Indicators/Treatments Per H&P: Dementia with behavioral disturbance Based on the above, could you clarify in the Progress Notes which, if any of the following, is the most likely etiology of the confusion/altered mental status? * Dementia - indicate type of dementia, such as Alzheimer's, senile, vascular, Lewy body, etc. * Other etiology (please specify) * Unable to determine Use of terms such as suspected, likely, concern for, or probable (associated with a specific diagnosis that is being evaluated, monitored, or treated as if it exists) are acceptable and can be coded in the inpatient setting, when documented at the time of discharge. Thank you, Morena Crowell [insert CDI's credentials] Extension: [4-digit phone extension] Please use your independent medical judgment in providing your response. THIS QUERY IS PART OF THE PERMANENT MEDICAL RECORD
[2021-06-05] MEDS: Amoxicillin/Potassium Clav 875 MG TABLET PO ×2 (09:08→19:29)
[2021-06-05] MEDS: Thiamine HCL 100 MG TABLET PO (09:08)
[2021-06-05] MEDS: Folic Acid 1 MG TABLET PO (09:08)
[2021-06-05 09:24] LABS: Anion Gap 10 (12-20); Blood Urea Nitrogen 33 mg/dL (9-16); Calcium 8.2 mg/dL (8.4-10.2); Carbon Dioxide 29 mmol/L (22-29); Chloride 108 mmol/L (96-108); Creatinine Clr Calc Pharmacy 46.7; Estimated Glomerular Filt Rate 60; Glucose Random 100 mg/dL (60-115); Potassium 3.9 mmol/L (3.3-5.1); Sodium 143 mmol/L (135-145)
--- NOTE | 2021-06-05 13:46 | MHC.SL.SWA ---
Speech Pathologist Impression: Risk of Aspiration Oralpharyngeal Dysphagia Risk of Aspiration Due to: Poor PO Intake Reduced Cognition Dysphasia Diet Status: Upgrade Liquid Consistency and Strategies for Safe Swallow: Liquid Intake Recommendation: Tolstoy Thick Liquid Intake Strategies: Small Sips No Straws Solid Food Consistency: Dietary Recommendations: Grnd/Mech Altered (NDD2) Additional Modifications to Solid Foods: Recommend UPGRADE GROUND/MECH ALTERED (NDD2) solids and maintain NECTAR THICK liquids with pills CRUSHED in PUREE. Recommend total supervision during meals, and assistance as needed. Continue aspiration precautions. Oral Medication Intake: Crushed with Puree Compensatory Strategies and Precautions to be Taken for Safe Swallow: Sitting Upright (90 deg) No Straw Small Bites and Sips Alternate Liquids/Solids Rate of Ingestion Change Oral Check Avoid Specific Foods Supervision While Eating and Drinking for Safe Swallow: Total Supervision (1:1) Foods to Avoid: Swallowing Recommended Treatments: Compens. Strategy Educat. Recommendation for Speech: Inpatient Speech Therapy Pt. seen today for re-assessment of swallow, monitor of diet. Pt. was seated upright in bed, brighter affect, communicative, still oriented X1 moderately confused. Pt. reported that he had had breakfast and enjoyed it. Pt took cup sips of nectar thick liquid, with effective oral phase and swallow. Voice clear, produced mildly ronchorous cough when requested. Pt. took puree by self feeding with spoon, with effective oral phase and swallow. Pt. had trial of soft solid (kenneth cracker in puree), with prolonged oral phase due to mastication, residual in mouth after swallow cleared with sip of nectar liquid. Recommend continued GROUND/MECH ALTERED (NDD2) solids and maintain NECTAR THICK liquids, with pills CRUSHED in PUREE. Aspiration precautions and 1:1 supervision due to impulsivity risk. FIRER HELPER will continue to follow pt throughout his stay to determine the safest and least restrictive diet consistency. Wild Animal Caretaker Clinican/Clinical Fellow: No Supervisory Statement: I have reviewed and agree with the student/clinical fellow's documentation: N/A Speech Language Pathologist: Cele Hopkins M.A. [facility]-FIRER HELPER
[2021-06-05] MEDS: Heparin Sodium,Porcine 5,000 UNIT/ML VIAL 5000 UNIT SUBCUT (15:44)
--- NOTE | 2021-06-05 16:31 | P.CNPS_ITS ---
History of Present Illness Date of Service: 06/05/21 Chief Complaint: Toxic metabolic encephalopathy Pneumonia Reason for Consult: Capacity Requesting physician: Elda Kennedy Sources of Information: patient interviewed and chart reviewed HPI Narrative: Patient is 75 years old with history of dementia, orthostatic hypertension, failure to thrive. He arrived to [facility] on 05/23/21, son's maureen cervantes lled EMS reporting she cannot manage him anymore. He used to live with his son who was picked up by police and is in senior care now, brought here as no one to take care of him.?Patient is severely demented alert oriented x1 ambulates in the night on the street, eats whatever food he can get, very unkept situation, came here for placement.?No chest pain no shortness of breath no fever noticed patient has some diarrhea per EMS record.? He had consult with psychiatry on 05/28/21 for agitation, low dose zyprexa was recommended and utilized as scheduled dose, takes olanzapine 5 mg QHS with positive benefit. Per staffing operations manager, no behavioral concerns as of 05/29/21. He is currently medically cleared and awaiting placement, working with case management. I evaluated the pt this evening and upon interview, pt is alert and oriented to self but not time, situation, or place. Although pt is hard of hearing, his responses are mostly non-sensical and indicative of pt not comprehending question due to severe dementia. He is pleasant, smiling, and able to ask for water and food. Pt does not meet criteria for capacity, as he is not able to make meaningful decisions for his treatment plan. Per staffing operations manager, he is able to urinate and control his bladder and bowel function, uses urinal independently but is one person assist for bowel movements. He is able to feed himself but has diet order for thickened water due to choking risk. RN also reports he is sleeping at night with current med regimen. He denies pain. Pt has difficulty completing simple tasks on his own i.e. dressing, bathing and requires redirection and step by step directions. He appears to spend most of time sitting or in purposeless activity. Hx of wandering at night at home but no wandering in the hospital setting. No psychotic sx reported. His appearance was unkempt on admission and is disorderly if left to own devices. No moaning or threats of harm to self or others. No accusing others of harm. No shouting or yelling. No sudden changes in mood, pt is pleasant and cooperative with staff. No property destruction. He appears to have limited insight into his own limitations imposed by dementia and needs to be monitored so he does not injure himself. He has difficulty with recent and remote memory and is confused about where he is. Past Psychiatric History: dementia, per chart Medical Evaluation Reviewed: Yes [facility] Medical History (Updated 05/30/21 @ 14:47 by Briseida Garcia MD) Rash Family History: unknown Social History: as per HPI Trauma History: unknown Diagnostics Vital Signs (24Hr): Vital Signs - 24 hr 06/04/21 19:15 06/04/21 23:50 06/05/21 04:00 Temperature 97.8 F 97.5 F 97.8 F Pulse Rate 65 56 68 Respiratory Rate 18 17 15 Blood Pressure 129/63 131/77 129/63 Pulse Oximetry 96 97 97 06/05/21 08:00 Temperature 97.7 F Pulse Rate 64 Respiratory Rate 17 Blood Pressure 108/53 L Pulse Oximetry 95 Body Mass Index 21.1 Labs Results: 05/30/21 05:39 06/05/21 08:41 Labs: Laboratory Results - last 48 hr 05/29/21 06/05/21 16:28 08:41 Sodium 143 Potassium 3.9 Chloride 108 Carbon Dioxide 29 Anion Gap 10 L BUN 33 H Creatinine 1.18 Estim Creat Clear Calc 46.7 Estimated GFR 60 Random Glucose 100 Calcium 8.2 L Vitamin B1 11 Imaging Radiology Impressions: ITS Impressions Chest X-Ray 05/23/21 16:57 IMPRESSION: No acute finding Chest X-Ray 05/29/21 08:24 IMPRESSION: New airspace opacities in the right lung base worrisome for focal pneumonia or aspiration. Recommend a follow-up to ensure resolution. Questionable small left pleural effusion versus pleural thickening. Head CT 05/29/21 10:23 IMPRESSION: 1. No evidence of acute intracranial hemorrhage or edematous territorial infarction. 2. 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 3. Redemonstration of complete opacification of the right maxillary sinus with associated bony remodeling. Mental Status Exam Mental Status Exam Narrative: Pt is sitting up in bed, casual dress, watching tv, not malodorous.?No tics or tremors. No involuntary movements. Pt is cooperative with interview to the best of his ability.? speech fluent but with paucity of meaning, non-sequiturs for responses. Not talkative, nml loudness, decreased latency.? thoughts are disorganized and incoherent.? affect full range, normo- intense, non-labile.? no SI/HI/AVH voiced. Medications Medications Current Medications Amoxicillin/Clavulanate Potassium (Amoxicillin/Potassium Clav 875 Mg Tablet) 875 mg PO Q12H [facility] Last Admin: 06/05/21 09:08 Dose: 875 mg Documented by: Folic Acid (Folic Acid 1 Mg Tablet) 1 mg PO DAILY [facility] Last Admin: 06/05/21 09:08 Dose: 1 mg Documented by: Heparin Sodium (Porcine) (Heparin Sodium,Porcine 5,000 Unit/Ml Vial) 5,000 unit SUBCUT Q12H [facility] Last Admin: 06/05/21 15:44 Dose: 5,000 unit Documented by: Hydroxyzine HCl (Hydroxyzine Hcl 50 Mg/Ml Vial) 25 mg IM Q6H PRN PRN Reason: anxiety/restlessness Last Admin: 06/03/21 17:28 Dose: 25 mg Documented by: Olanzapine (Olanzapine 5 Mg Tablet) 5 mg PO BEDTIME [facility] Last Admin: 06/04/21 20:35 Dose: 5 mg Documented by: Omeprazole (Omeprazole 20 Mg Capsule.Dr) 20 mg PO DAILY@0630 [facility] Last Admin: 06/05/21 06:20 Dose: 20 mg Documented by: Pharmacy Consult (Consult Rx Perform Med Rec) 1 each MISCELLANE ONCE PRN PRN Reason: Consult order Sodium Chloride (0.9 % Sodium Chloride Flush 3 Ml Syringe) 3 ml IVFLUSH QSHIFT [facility] Last Admin: 06/05/21 15:34 Dose: Not Given Documented by: Thiamine HCl (Thiamine Hcl 100 Mg Tablet) 100 mg PO DAILY [facility] Last Admin: 06/05/21 09:08 Dose: 100 mg Documented by: Allergies Allergies Allergy/AdvReac Type Severity Reaction Status Date / Time No Known Allergies Allergy Verified 12/24/20 08:35 [No Known Allergies*] Assessment & Plan Assessment & Plan (1) Aspiration pneumonia: Qualifiers: Aspiration pneumonia type: unspecified Laterality: right Lung location: lower lobe of lung Qualified Code(s): J69.0 - Pneumonitis due to inhalation of food and vomit Status: Acute Code(s): J69.0 - Pneumonitis due to inhalation of food and vomit (2) Dementia: Status: Acute Code(s): F03.90 - Unspecified dementia without behavioral disturbance (3) Dementia with behavioral disturbance: Status: Acute Code(s): F03.91 - Unspecified dementia with behavioral disturbance Assessment and Plan: Pt does not meet capacity for making healthcare decisions. Will continue on olanzapine 5 mg QHS for agitation due to positive benefit. Awaiting placement. CM pursuing temporary guardianship, as pt is not able to care for self independently and has significant limitations in functioning due to severe dementia. I spent minutes with the patient and/or on the patient floor today, greater than?50% of which was spent counseling/coordinating care.
[2021-06-05 16:35] VITALS: BP 140/81; PULSE 70; RESP 18; TEMP 36.1; O2SAT 96
[2021-06-05] MEDS: 0.9 % Sodium Chloride Flush 3 ML SYRINGE IVFLUSH (19:29)
[2021-06-05] MEDS: OLANZapine 5 MG TABLET PO (19:29)
[2021-06-05 20:00] VITALS: BP 128/68; PULSE 59; RESP 16; TEMP 36.2; O2SAT 97
[2021-06-05] MEDS: hydrOXYzine HCL 50 MG/ML VIAL 25 MG IM (21:43)
[2021-06-05 23:54] VITALS: BP 121/63; PULSE 66; RESP 17; TEMP 37; O2SAT 96
[2021-06-06] MEDS: Heparin Sodium,Porcine 5,000 UNIT/ML VIAL 5000 UNIT SUBCUT ×2 (03:55→17:31)
[2021-06-06 04:00] VITALS: BP 115/58; PULSE 60; RESP 17; TEMP 36.9; O2SAT 96
[2021-06-06] MEDS: Omeprazole 20 MG CAPSULE.DR PO (05:10)
[2021-06-06 07:56] VITALS: BP 134/65; PULSE 54; RESP 16; TEMP 36.6; O2SAT 96
[2021-06-06] MEDS: Amoxicillin/Potassium Clav 875 MG TABLET PO ×2 (08:18→20:28)
[2021-06-06] MEDS: Folic Acid 1 MG TABLET PO (08:18)
[2021-06-06] MEDS: Thiamine HCL 100 MG TABLET PO (08:18)
[2021-06-06] MEDS: Permethrin 5 % Cream 60 GM TUBE 1 APPL TOPICAL (09:10)
--- NOTE | 2021-06-06 10:19 | MHC.CM.PN ---
EMR REVIEWING, PT REMAINS MEDICALLY STABLE, PT SEEN BY PSYCH LATE YESTERDAY 06/05/21 TO DETERMINE CAPACITY WHICH WAS DETERMINED PT DOES NOT HAVE CAPACITY TO MAKE HEALTHCARE DECISIONS AND PT UNABLE TO CARE FOR SELF D/T SEVERE DEMENTIA, PER CM DIRECTOR [facility] WILL GO FOR TEMPORARY GUARDIANSHIP SON IS INCARCERATED, UNSURE OF DATE OF RELEASE AND CONCERNS PT NOT BEING ADEQUATELY CARED FOR PRIOR TO ADMISSION. CM WILL CONT TO FOLLOW D/C NEEDS.
--- NOTE | 2021-06-06 11:07 | HO.PM.IMPN ---
Subjective Subjective Date of Service: 06/06/21 Interval History: Patient seen and examined at bedside, Reports no knee pain this morning., no redness, no warmth, no limitation to range of motion. No chest pain, no shortness of breath, no abdominal pain, no diarrhea or constipation, no urinary symptoms and no extremity swelling Review of Systems Review of Systems: Yes all other systems are reviewed and are negative Physical Exam Vital Signs: Vital Signs: Last Vital Signs Temp 97.8 F 06/06/21 07:56 Pulse 54 06/06/21 07:56 Resp 16 06/06/21 07:56 BP 134/65 06/06/21 07:56 Pulse Ox 96 06/06/21 07:56 Body Mass Index 21.1 Const: General: cooperative and no acute distress Orientation/consciousness: patient oriented x3 Resp: Effort & Inspection: normal respiratory effort Auscultation: clear to auscultation bilaterally Cardio: Rate: regular rate Rhythm: regular rhythm GI: Palpation (GI): Soft to palpation Neuro: General: patient oriented x3 Extrem: Other: Left knee examined, no limited range of motion. No warmth, no erythema, no edema General: Yes normal to inspection Objective Data Active Medications Amoxicillin/Clavulanate Potassium (Amoxicillin/Potassium Clav 875 Mg Tablet) 875 mg PO Q12H [facility] Last Admin: 06/06/21 08:18 Dose: 875 mg Documented by: FRANCIE Folic Acid (Folic Acid 1 Mg Tablet) 1 mg PO DAILY [facility] Last Admin: 06/06/21 08:18 Dose: 1 mg Documented by: FRANCIE Heparin Sodium (Porcine) (Heparin Sodium,Porcine 5,000 Unit/Ml Vial) 5,000 unit SUBCUT Q12H [facility] Last Admin: 06/06/21 03:55 Dose: 5,000 unit Documented by: SYLVIA Hydroxyzine HCl (Hydroxyzine Hcl 50 Mg/Ml Vial) 25 mg IM Q6H PRN PRN Reason: anxiety/restlessness Last Admin: 06/05/21 21:43 Dose: 25 mg Documented by: SYLVIA Olanzapine (Olanzapine 5 Mg Tablet) 5 mg PO BEDTIME [facility] Last Admin: 06/05/21 19:29 Dose: 5 mg Documented by: SYLVIA Omeprazole (Omeprazole 20 Mg Capsule.) 20 mg PO DAILY@0630 [facility] Last Admin: 06/06/21 05:10 Dose: 20 mg Documented by: SYLVIA Pharmacy Consult (Consult Rx Perform Med Rec) 1 each MISCELLANE ONCE PRN PRN Reason: Consult order Sodium Chloride (0.9 % Sodium Chloride Flush 3 Ml Syringe) 3 ml IVFLUSH QSHIFT [facility] Last Admin: 06/06/21 08:17 Dose: Not Given Documented by: FRANCIE Non-Admin Reason: No Access Thiamine HCl (Thiamine Hcl 100 Mg Tablet) 100 mg PO DAILY [facility] Last Admin: 06/06/21 08:18 Dose: 100 mg Documented by: FRANCIE Labs CBC & Chem 7: 05/30/21 05:39 06/05/21 08:41 Assessment and Plan (1) Aspiration pneumonia: Status: Acute (2) Dementia: Status: Acute (3) Adult failure to thrive: Status: Acute (4) Dementia with behavioral disturbance: Status: Acute Assessment and Plan: This is a 75-year-old male who initially admitted to the hospital for placement, while in the hospital developed aspiration pneumonia, was started on Augmentin. His diet has been adjusted by speech and Swallow, patient complaining p.o. antibiotics and awaiting placement. 1. Aspiration pneumonia- resolved - no hypoxia - diet has been updated with no further report of witnessed aspiration - continue Augmentin day / 3. Left knee pain- resolved - most likely secondary to DJD - Tylenol p.r.n. for pain 3. Possible scabies:? - Given permethrin treatment x2 4. Pre renal azotemia:? - Improved- almost back to baseline cr - encourage IV hydration 5. Dementia with? possible with behavioral disturbances: - Actue dementia workup -ve including? syphilis-T pallidum -nonreactive, HIV, TSH, B12 folate-seems fine, B1-pending. - CT head showed no evidence of acute intracranial hemorrhage or edematous territorial infarction, chronic microangiopathy and generalized cerebral volume loss with multiple bilateral chronic lacunar infarcts -psych eval for behavioural issues noted -continue zyprexa - awaiting placement 4. Stage II pressure ulcer in the left heel, continue wound care 5. DVT prophylaxis with subQ heparin Pt does not meet capacity for making healthcare decisions. Will continue on olanzapine 5 mg QHS for agitation due to positive benefit. Awaiting placement. CM pursuing temporary guardianship, as pt is not able to care for self independently and has significant limitations in functioning due to severe dementia. Quality Stroke Does the patient have a stroke diagnosis?: No VTE Prior VTE?: No VTE Risk Level:: Medical - moderate - high VTE Device Contraindication: N/A - Device Ordered VTE Drug Contraindication: N/A - Med Ordered
[2021-06-06 12:00] VITALS: BP 142/68; PULSE 68; RESP 18; TEMP 36.4; O2SAT 97
--- NOTE | 2021-06-06 13:53 | MHC.CLN ---
F/U INTAKE AT MEALS APPEARS IMPROVED WITH MOST 100%. DIET =2 GRAM SODIUM, NDD2, NECTAR THICK LIQUIDS. CONTINUE ENSURE TID (1050 KCAL, 48-60 G PROTEIN). WOUNDS: STAGE I BILATERAL BUTTOCKS; STAGE II LEFT MEDIAL HEEL. CONTINUE SUPPLEMENT FOR ADDITIONAL PROTEIN FOR WOUND HEALING..
--- NOTE | 2021-06-06 14:42 | MHC.SL.DTX ---
Dysphagia Diet modifications: Last documented Solid diet consistencies: Grnd/Mech Altered (NDD2) Last documented Liquid consistency: Qulin Thick Last documented Medication Administration: crushed in puree Changes made to current diet?: No Liquid Consistency and Strategies: Liquid Intake Recommendation: Qulin Thick Compensatory Strategies for Safe Swallow: Small Sips No Straws Compensatory Strategies for Safe Swallow(b): Sitting Upright (90 deg) No Straw Liquids from Cup Small Bites and Sips Alternate Liquids/Solids Solid Food Consistency: Dietary Recommendations: Grnd/Mech Altered (NDD2) Additional Modifications to Solids: Recommend UPGRADE GROUND/MECH ALTERED (NDD2) solids and maintain NECTAR THICK liquids with pills CRUSHED in PUREE. Recommend total supervision during meals, and assistance as needed. Continue aspiration precautions. Oral Medication Intake: Crushed with Puree Strategies and Precautions to be Taken for Safe Swallow: Sitting Upright (90 deg) No Straw Liquids from Cup Small Bites and Sips Alternate Liquids/Solids Supervision While Eating and/Drinking: Total Assistance Foods to Avoid: Swallowing Recommended Treatments: Compens. Strategy Educat. Level of Impact on: Daily activities: Moderate Interpersonal interactions: Education: None Employment: None Community: Moderate Prognosis for Improvement: Fair Recommendation for Speech: Inpatient Speech Therapy Treatment: Pt was seen for dysphagia treatment in his room. Pt remains on contact precautions for scabies. Current diet consistency NDD2 GROUND/MECHANICALLY altered solids and NECTAR THICK liquids. Pt was attempting to climb out of bed several times just prior to this [employer]'s arrival to his room this morning. Pt demonstrated significant confusion. He declined all solids offered. He accepted 3 sips of a trial of thin water during which he elicited overt s/s aspiration in 1/3 sips. Unable to further assess appropriateness for an upgrade in either solids or liquids this date due to pt's refusal for further trials. RN was notified. Recommend continuation of GROUND/MECH ALTERED (NDD2) solids and maintain NECTAR THICK liquids, with pills CRUSHED in PUREE. Aspiration precautions and 1:1 supervision remain appropriate due to impulsivity and impaired cognition. [facility] will continue to follow pt throughout his stay to determine the safest and least restrictive diet consistency. Enterprise Application Developer Clinican/Clinical Fellow: No Supervisory Statement: I have reviewed and agree with the student/clinical fellow's documentation: N/A Speech Language Pathologist: Rose Joya M.A., CCC-[employer] [facility]
[2021-06-06 16:00] VITALS: BP 163/77; PULSE 66; RESP 19; TEMP 36.4; O2SAT 97
[2021-06-06 19:46] VITALS: BP 139/71; PULSE 60; RESP 18; TEMP 36.2; O2SAT 98
[2021-06-06] MEDS: OLANZapine 5 MG TABLET PO (20:28)
[2021-06-06] MEDS: 0.9 % Sodium Chloride Flush 3 ML SYRINGE IVFLUSH (20:34)
[2021-06-06] MEDS: hydrOXYzine HCL 50 MG/ML VIAL 25 MG IM (22:12)
[2021-06-07] VITALS: BP 134/63; PULSE 71; RESP 16; TEMP 36.4; O2SAT 96
[2021-06-07 04:00] VITALS: RESP 16
[2021-06-07] MEDS: Omeprazole 20 MG CAPSULE.DR PO (05:16)
[2021-06-07] MEDS: Heparin Sodium,Porcine 5,000 UNIT/ML VIAL 5000 UNIT SUBCUT ×2 (05:17→16:34)
--- NOTE | 2021-06-07 10:09 | MHC.SLORD ---
Speech Language Pathology Order Status: DOT COMPLIANCE SPECIALIST attempted to see patient this morning for dysphagia treatment. RN notified DOT COMPLIANCE SPECIALIST that patient is sleeping and asked DOT COMPLIANCE SPECIALIST not to wake patient as he had not slept well throughout the night. Per RN there are no concerns RE: patient's tolerance of current diet textures: GROUND/MECH ALTERED (NDD2) solids and NECTAR THICK liquids. Patient is awaiting placement. Please contact DOT COMPLIANCE SPECIALIST via [employer]er Message or ext. [phone] if there are any concerns- Otherwise, DOT COMPLIANCE SPECIALIST will return tomorrow morning for PO trials.
--- NOTE | 2021-06-07 11:14 | P.PNIM_ITS ---
Subjective Subjective Date of Service: 06/07/21 Interval History: seen and examined this morning pleasantly confused denies any complaints Review of Systems ROS unreliable Physical Exam Vital Signs: Vital Signs: Last Vital Signs Temp 97.6 F 06/07/21 00:00 Pulse 71 06/07/21 00:00 Resp 16 06/07/21 04:00 BP 134/63 06/07/21 00:00 Pulse Ox 96 06/07/21 00:00 Body Mass Index 21.1 Objective Data Active Medications Amoxicillin/Clavulanate Potassium (Amoxicillin/Potassium Clav 875 Mg Tablet) 875 mg PO Q12H [facility] Last Admin: 06/06/21 20:28 Dose: 875 mg Documented by: BENITA Folic Acid (Folic Acid 1 Mg Tablet) 1 mg PO DAILY [facility] Last Admin: 06/06/21 08:18 Dose: 1 mg Documented by: FRANCIE Heparin Sodium (Porcine) (Heparin Sodium,Porcine 5,000 Unit/Ml Vial) 5,000 unit SUBCUT Q12H [facility] Last Admin: 06/07/21 05:17 Dose: 5,000 unit Documented by: BENITA Hydroxyzine HCl (Hydroxyzine Hcl 50 Mg/Ml Vial) 25 mg IM Q6H PRN PRN Reason: anxiety/restlessness Last Admin: 06/06/21 22:12 Dose: 25 mg Documented by: BENITA Olanzapine (Olanzapine 5 Mg Tablet) 5 mg PO BEDTIME [facility] Last Admin: 06/06/21 20:28 Dose: 5 mg Documented by: BENITA Omeprazole (Omeprazole 20 Mg Capsule.Dr) 20 mg PO DAILY@0630 [facility] Last Admin: 06/07/21 05:16 Dose: 20 mg Documented by: BENITA Pharmacy Consult (Consult Rx Perform Med Rec) 1 each MISCELLANE ONCE PRN PRN Reason: Consult order Sodium Chloride (0.9 % Sodium Chloride Flush 3 Ml Syringe) 3 ml IVFLUSH QSHIFT [facility] Last Admin: 06/06/21 20:34 Dose: 3 ml Documented by: BENITA Thiamine HCl (Thiamine Hcl 100 Mg Tablet) 100 mg PO DAILY [facility] Last Admin: 06/06/21 08:18 Dose: 100 mg Documented by: FRANCIE Labs CBC & Chem 7: 05/30/21 05:39 06/05/21 08:41 Assessment and Plan (1) Dementia with behavioral disturbance: Status: Acute Assessment and Plan: This is a 75 yo M who presented to the ED on 05/23/21 for AMS and failure to thrive. He was initially going to be placed at a facility, but on 05/29 was noted to have cough and a CXR revealed a new R base infiltrate concerning for aspiration pneumonia. He was subsequently medically admitted. 1. Dementia (per prior documentation) with behavioral disturbances None today Continue medications per psych Evaluated by psych -- does not have capacity 2. Aspiration Pneumonia completed treatment with IV and oral meds Diet -- nectar thick and Ground/[facility] alerted 3. Suspected scabies Permethrin given 4. Stage 2 pressure ucler (L heel / M medial heel) - present on admission 4a. Stage 1 bilateral buttock - present on admission seen by technical mgr with following instructions: Woundres Gel for the heel + Foam dressing Barrier cream Continue other usual decub preacutions -- nutrition + air loss bed + nutrition (on supplements), etc Pending placement. Medically stable. Full Code DVT pptx, heparin Quality Stroke Does the patient have a stroke diagnosis?: No VTE Prior VTE?: No VTE Risk Level:: Medical - moderate - high VTE Device Contraindication: N/A - Device Ordered VTE Drug Contraindication: N/A - Med Ordered
[2021-06-07] MEDS: Folic Acid 1 MG TABLET PO (11:30)
[2021-06-07] MEDS: 0.9 % Sodium Chloride Flush 3 ML SYRINGE IVFLUSH (11:30)
[2021-06-07] MEDS: Amoxicillin/Potassium Clav 875 MG TABLET PO (11:30)
[2021-06-07] MEDS: Thiamine HCL 100 MG TABLET PO (11:30)
[2021-06-07 12:00] VITALS: BP 130/60; PULSE 75; RESP 18; TEMP 36.9; O2SAT 98
[2021-06-07 16:00] VITALS: BP 132/63; PULSE 62; RESP 18; TEMP 36.8; O2SAT 96
[2021-06-07 19:53] VITALS: BP 103/49; PULSE 69; RESP 18; TEMP 37; O2SAT 98
[2021-06-07] MEDS: hydrOXYzine HCL 50 MG/ML VIAL 25 MG IM (21:45)
[2021-06-07] MEDS: OLANZapine 5 MG TABLET PO (21:46)
[2021-06-08] VITALS: BP 111/68; PULSE 72; RESP 18; TEMP 36.6; O2SAT 98
[2021-06-08] MEDS: Heparin Sodium,Porcine 5,000 UNIT/ML VIAL 5000 UNIT SUBCUT ×2 (03:35→16:18)
[2021-06-08 04:00] VITALS: BP 132/71; PULSE 70; RESP 19; TEMP 36.7; O2SAT 96
[2021-06-08] MEDS: Omeprazole 20 MG CAPSULE.DR PO (04:50)
[2021-06-08 08:00] VITALS: BP 134/62; PULSE 64; RESP 20; TEMP 36.4; O2SAT 98
[2021-06-08] MEDS: Thiamine HCL 100 MG TABLET PO (09:47)
[2021-06-08] MEDS: Folic Acid 1 MG TABLET PO (09:47)
--- NOTE | 2021-06-08 11:09 | MHC.SL.DTX ---
Dysphagia Diet modifications: Last documented Solid diet consistencies: Grnd/Mech Altered (NDD2) Last documented Liquid consistency: [place] Thick Last documented Medication Administration: crushed in puree Changes made to current diet?: Yes; advance liquids to THIN Liquid Consistency and Strategies: Liquid Intake Recommendation: Thin Compensatory Strategies for Safe Swallow: Small Sips No Straws Compensatory Strategies for Safe Swallow(b): Sitting Upright (90 deg) No Straw Liquids from Cup Small Bites and Sips Alternate Liquids/Solids Solid Food Consistency: Dietary Recommendations: Grnd/Mech Altered (NDD2) Additional Modifications to Solids: Recommend continuation of GROUND/MECH ALTERED (NDD2) solids and ADVANCE to THIN liquids. Medications CRUSHED in PUREE. Recommend total supervision during meals, and assistance as needed. Continue aspiration precautions. Oral Medication Intake: Crushed with Puree Strategies and Precautions to be Taken for Safe Swallow: Sitting Upright (90 deg) No Straw Liquids from Cup Small Bites and Sips Alternate Liquids/Solids Supervision While Eating and/Drinking: Total Assistance Swallowing Recommended Treatments: Compens. Strategy Educat. Level of Impact on: Daily activities: Severe Interpersonal interactions: Education: None Employment: None Community: Severe Prognosis for Improvement: Fair Recommendation for Speech: Inpatient Speech Therapy Treatment: Pt was seen for dysphagia treatment in his room. Pt remains on contact precautions for scabies. Current diet consistency NDD2 GROUND/MECHANICALLY altered solids and NECTAR THICK liquids. Reviewed current diet consistency with [employer] REPAIRER present. Pt continues to demonstrate significant confusion. He was observed to pretend he was throwing and catching a ball during his session. Pt again declined solids but was willing to consume liquids, given much encouragement. Pt tolerated thin liquids via small, single cup sips given consistent verbal cues as pt self administered liquids. No overt s/s aspiration noted. Pt elicited a timely pharyngeal swallow trigger with thin liquids. Recommend continuation of GROUND/MECH ALTERED (NDD2) solids and ADVANCE TO THIN liquids, with pills CRUSHED in PUREE. RN was notified and liquid consistency updated in Expanse by this CONTRACT COORDINATOR. Aspiration precautions and 1:1 supervision remain appropriate due to impulsivity and impaired cognition. CONTRACT COORDINATOR will continue to follow pt throughout his stay to determine the safest and least restrictive diet consistency. Assessment: Drywall Boardhanger Clinican/Clinical Fellow: No Supervisory Statement: I have reviewed and agree with the student/clinical fellow's documentation: N/A Speech Language Pathologist: Rose Joya M.A., CCC-CONTRACT COORDINATOR
[2021-06-08 11:56] VITALS: BP 141/75; PULSE 72; RESP 20; TEMP 36.3; O2SAT 97
--- NOTE | 2021-06-08 13:33 | P.PNIM_ITS ---
Subjective Subjective Date of Service: 06/08/21 Interval History: Seen and examined this morning Follow-up for pneumonia no overnight events pleasantly confused Review of Systems Review of Systems: Yes Unobtainable due to mental status Physical Exam Vital Signs: Vital Signs: Last Vital Signs Temp 97.4 F 06/08/21 11:56 Pulse 72 06/08/21 11:56 Resp 20 06/08/21 11:56 BP 141/75 H 06/08/21 11:56 Pulse Ox 97 06/08/21 11:56 Body Mass Index 21.1 Const: General: comfortable, alert, awake and Physically active Nutritional Appearance: thin HENMT: Head: Yes normocephalic and Yes atraumatic Eyes: Sclerae: sclerae normal Pupils: Equal, round and reactive pupils present Resp: Effort & Inspection: normal respiratory effort and no respiratory distress Cardio: Rate: regular rate GI: Palpation (GI): Soft to palpation and nontender Neuro: Cranial nerves: Yes CN's II-XII intact bilaterally, Yes Equal, round and reactive pupils present and Yes Bilaterally intact EOM present Extrem: Other: moving all 4 extremities spontaneously Objective Data Active Medications Folic Acid (Folic Acid 1 Mg Tablet) 1 mg PO DAILY [facility] Last Admin: 06/08/21 09:47 Dose: 1 mg Documented by: AURORA Heparin Sodium (Porcine) (Heparin Sodium,Porcine 5,000 Unit/Ml Vial) 5,000 unit SUBCUT Q12H [facility] Last Admin: 06/08/21 03:35 Dose: 5,000 unit Documented by: SYLVIA Hydroxyzine HCl (Hydroxyzine Hcl 50 Mg/Ml Vial) 25 mg IM Q6H PRN PRN Reason: anxiety/restlessness Last Admin: 06/07/21 21:45 Dose: 25 mg Documented by: SYLVIA Olanzapine (Olanzapine 5 Mg Tablet) 5 mg PO BEDTIME [facility] Last Admin: 06/07/21 21:46 Dose: 5 mg Documented by: SYLVIA Omeprazole (Omeprazole 20 Mg Capsule.) 20 mg PO DAILY@0630 [facility] Last Admin: 06/08/21 04:50 Dose: 20 mg Documented by: ELODIA Pharmacy Consult (Consult Rx Perform Med Rec) 1 each MISCELLANE ONCE PRN PRN Reason: Consult order Sodium Chloride (0.9 % Sodium Chloride Flush 3 Ml Syringe) 3 ml IVFLUSH QSHIFT [facility] Last Admin: 06/08/21 09:48 Dose: Not Given Documented by: AURORA Non-Admin Reason: No Access Thiamine HCl (Thiamine Hcl 100 Mg Tablet) 100 mg PO DAILY [facility] Last Admin: 06/08/21 09:47 Dose: 100 mg Documented by: AURORA Labs CBC & Chem 7: 05/30/21 05:39 06/05/21 08:41 Assessment and Plan (1) Aspiration pneumonia: Status: Acute (2) Dementia: Status: Acute Assessment and Plan: This is a 75 yo M who presented to the ED on 05/23/21 for AMS and failure to thrive. He was initially going to be placed at a facility, but on 05/29 was noted to have cough and a CXR revealed a new R base infiltrate concerning for aspiration pneumonia. He was subsequently medically admitted. 1. Dementia (per prior documentation) with behavioral disturbances None today Continue medications per psych Evaluated by psych -- does not have capacity 2. Aspiration Pneumonia completed treatment with IV and oral meds Diet -- nectar thick and Ground/mech alerted 3. Suspected scabies Permethrin given 4. Stage 2 pressure ucler (L heel / M medial heel) - present on admission 4a. Stage 1 bilateral buttock - present on admission seen by specialist wound care with following instructions: Woundres Gel for the heel + Foam dressing Barrier cream Continue other usual decub preacutions -- nutrition + air loss bed + nutrition (on supplements), etc Pending placement. Medically stable. Full Code DVT pptx, heparin attending. dr bruno Quality Stroke Does the patient have a stroke diagnosis?: No VTE Prior VTE?: No VTE Risk Level:: Medical - moderate - high VTE Device Contraindication: N/A - Device Ordered VTE Drug Contraindication: N/A - Med Ordered
--- NOTE | 2021-06-08 14:50 | MHC.CLN ---
F/U APPEARS TO HAVE VERY GOOD INTAKE AT MEALS. SEEN BY SHOE TREER AND LIQUIDS CHANGED FROM NECTAR TO THIN, DIET=2 GRAM SODIUM, NDD2, THIN LIQUIDS; SUPPLEMENT ENSURE TID. WOUNDS: STAGE I BILATERAL BUTTOCKS, STAGE II LEFT MEDIAL HEEL. CONTINUE CURRENT NUTRITION ORDER.
--- NOTE | 2021-06-08 15:09 | MHC.CM.PN ---
EMR REVIEWED, PER CM DEBURR OPERATOR CERT AND CHUCK FOR TEMPORARY GUARDIANSHIP/CONSERVATORSHIP WILL BE FAXED SENT TO [facility] PROVIDER ENROLLMENT SPECIALIST TODAY. PT WILL REMAIN INPT AND WILL NEED LTC PAYOR PRIOR TO D/C. SNF'S HAVE CONTINUED TO DECLINE PT D/T NO LTC PLAN/PAYOR AND SITUATION W/HCP WHO REMAINS INCARCERATED.
[2021-06-08 15:54] VITALS: BP 160/74; PULSE 69; RESP 18; TEMP 37; O2SAT 98
[2021-06-08] MEDS: hydrOXYzine HCL 50 MG/ML VIAL 25 MG IM (16:18)
--- NOTE | 2021-06-08 18:39 | PC.NURSE ---
P-patient restless,anxious I reassured,redirected patient multiple times,administered prn Atarax E MANNEQUIN MAKER made aware of need for additional safety check on a patient,telesiter on,bed alarm on
[2021-06-08] MEDS: OLANZapine 5 MG TABLET PO (19:39)
[2021-06-08 20:00] VITALS: BP 134/70; PULSE 71; RESP 18; TEMP 37; O2SAT 98
[2021-06-09] VITALS: BP 116/80; PULSE 78; RESP 18; TEMP 36.6; O2SAT 97
[2021-06-09] MEDS: hydrOXYzine HCL 50 MG/ML VIAL 25 MG IM (01:22)
[2021-06-09 04:00] VITALS: TEMP 36.6
[2021-06-09] MEDS: OLANZapine 5 MG TABLET PO ×2 (04:10→21:04)
[2021-06-09 08:00] VITALS: BP 116/58; PULSE 69; RESP 18; TEMP 36.4; O2SAT 99
--- NOTE | 2021-06-09 11:18 | HO.PM.IMPN ---
Subjective Subjective Date of Service: 06/09/21 Interval History: No acute issues overnight Review of Systems Confused secondary to dementia review systems not possible Physical Exam Vital Signs: Vital Signs: Last Vital Signs Temp 97.5 F 06/09/21 08:00 Pulse 69 06/09/21 08:00 Resp 18 06/09/21 08:00 BP 116/58 L 06/09/21 08:00 Pulse Ox 99 06/09/21 08:00 Body Mass Index 21.1 Const: Other: No acute issues overnight Resp: Other: Good auscultation bilaterally no rales rhonchi wheezes Cardio: Other: No S4; positive S1-S2; no S3 murmurs rubs gallops GI: Other: Soft nontender nondistended with normoactive bowel sounds Extrem: Other: No edema bilaterally Objective Data Active Medications Folic Acid (Folic Acid 1 Mg Tablet) 1 mg PO DAILY [facility] Last Admin: 06/08/21 09:47 Dose: 1 mg Documented by: AURORA Heparin Sodium (Porcine) (Heparin Sodium,Porcine 5,000 Unit/Ml Vial) 5,000 unit SUBCUT Q12H [facility] Last Admin: 06/09/21 04:12 Dose: Not Given Documented by: ABRAHAM Non-Admin Reason: Patient Refused Hydroxyzine HCl (Hydroxyzine Hcl 50 Mg/Ml Vial) 25 mg IM Q6H PRN PRN Reason: anxiety/restlessness Last Admin: 06/09/21 01:22 Dose: 25 mg Documented by: ABRAHAM Olanzapine (Olanzapine 5 Mg Tablet) 5 mg PO BEDTIME [facility] Last Admin: 06/09/21 04:10 Dose: 5 mg Documented by: ABRAHAM Comments: Patient very restless, zyprexa given now per . Omeprazole (Omeprazole 20 Mg Capsule.) 20 mg PO DAILY@0630 [facility] Last Admin: 06/09/21 06:39 Dose: Not Given Documented by: ABRAHAM Non-Admin Reason: Patient Refused Pharmacy Consult (Consult Rx Perform Med Rec) 1 each MISCELLANE ONCE PRN PRN Reason: Consult order Sodium Chloride (0.9 % Sodium Chloride Flush 3 Ml Syringe) 3 ml IVFLUSH QSHIFT [facility] Last Admin: 06/09/21 10:21 Dose: Not Given Documented by: CHAPIN Non-Admin Reason: No Access Thiamine HCl (Thiamine Hcl 100 Mg Tablet) 100 mg PO DAILY [facility] Last Admin: 06/08/21 09:47 Dose: 100 mg Documented by: AURORA Labs CBC & Chem 7: 05/30/21 05:39 06/05/21 08:41 Assessment and Plan (1) Dementia: Status: Acute (2) Adult failure to thrive: Status: Acute Assessment and Plan: This is a 75 yo M who presented to the ED on 05/23/21 for AMS and failure to thrive. He was initially going to be placed at a facility, but on 05/29 was noted to have cough and a CXR revealed a new R base infiltrate concerning for aspiration pneumonia. He was subsequently medically admitted. 1. Dementia Continue medications per psych Evaluated by psych -- does not have capacity for medical decisions 2. Disposition Placement pending. Medically stable. Full Code DVT; heparin l Quality Stroke Does the patient have a stroke diagnosis?: No VTE Prior VTE?: No VTE Risk Level:: Medical - moderate - high VTE Device Contraindication: N/A - Device Ordered VTE Drug Contraindication: N/A - Med Ordered
[2021-06-09 12:00] VITALS: BP 119/58; PULSE 54; RESP 16; TEMP 36.5; O2SAT 95
[2021-06-09 16:00] VITALS: BP 171/82; PULSE 63; RESP 16; TEMP 36.1; O2SAT 97
[2021-06-09] MEDS: Heparin Sodium,Porcine 5,000 UNIT/ML VIAL 5000 UNIT SUBCUT (16:45)
[2021-06-09 19:51] VITALS: BP 123/60; PULSE 56; RESP 16; TEMP 36.4; O2SAT 96
[2021-06-10] VITALS: BP 126/78; PULSE 66; RESP 17; TEMP 36.3; O2SAT 95
[2021-06-10] MEDS: hydrOXYzine HCL 50 MG/ML VIAL 25 MG IM ×2 (02:44→22:22)
[2021-06-10] MEDS: Thiamine HCL 100 MG TABLET PO (08:54)
[2021-06-10] MEDS: Folic Acid 1 MG TABLET PO (08:54)
--- NOTE | 2021-06-10 10:29 | P.PNIM_ITS ---
Subjective Subjective Date of Service: 06/10/21 Interval History: cc: ams interval history: no complaints Review of Systems Review of Systems: Yes Unobtainable due to mental condition Physical Exam Vital Signs: Vital Signs: Last Vital Signs Temp 97.4 F 06/10/21 00:00 Pulse 66 06/10/21 00:00 Resp 17 06/10/21 00:00 BP 126/78 06/10/21 00:00 Pulse Ox 95 06/10/21 00:00 Body Mass Index 21.1 Const Other:?No acute issues overnight Resp Other:?Good auscultation bilaterally no rales rhonchi wheezes Cardio Other:?No S4; positive S1-S2; no S3 murmurs rubs gallops GI Other:?Soft nontender nondistended with normoactive bowel sounds Extrem Other:?No edema bilaterally Objective Data Active Medications Folic Acid (Folic Acid 1 Mg Tablet) 1 mg PO DAILY [facility] Last Admin: 06/10/21 08:54 Dose: 1 mg Documented by: SARA Heparin Sodium (Porcine) (Heparin Sodium,Porcine 5,000 Unit/Ml Vial) 5,000 unit SUBCUT Q12H [facility] Last Admin: 06/10/21 04:04 Dose: Not Given Documented by: ARELY Non-Admin Reason: Patient Refused Hydroxyzine HCl (Hydroxyzine Hcl 50 Mg/Ml Vial) 25 mg IM Q6H PRN PRN Reason: anxiety/restlessness Last Admin: 06/10/21 02:44 Dose: 25 mg Documented by: ARELY Olanzapine (Olanzapine 5 Mg Tablet) 5 mg PO BEDTIME [facility] Last Admin: 06/09/21 21:04 Dose: 5 mg Documented by: ARELY Omeprazole (Omeprazole 20 Mg Capsule.) 20 mg PO DAILY@0630 [facility] Last Admin: 06/10/21 06:18 Dose: Not Given Documented by: ARELY Non-Admin Reason: Patient Refused Pharmacy Consult (Consult Rx Perform Med Rec) 1 each MISCELLANE ONCE PRN PRN Reason: Consult order Sodium Chloride (0.9 % Sodium Chloride Flush 3 Ml Syringe) 3 ml IVFLUSH QSHIFT [facility] Last Admin: 06/10/21 08:54 Dose: Not Given Documented by: SARA Non-Admin Reason: No Access Thiamine HCl (Thiamine Hcl 100 Mg Tablet) 100 mg PO DAILY [facility] Last Admin: 06/10/21 08:54 Dose: 100 mg Documented by: SARA Labs CBC & Chem 7: 05/30/21 05:39 06/05/21 08:41 Assessment and Plan (1) Dementia: Status: Acute (2) Adult failure to thrive: Status: Acute Assessment and Plan: This is a 75 yo M who presented to the ED on 05/23/21 for AMS and failure to thrive. He was initially going to be placed at a facility, but on 05/29 was noted to have cough and a CXR revealed a new R base infiltrate concerning for aspiration pneumonia. He was subsequently medically admitted. aspiration pneumonia completed treatment Dementia Continue medications per psych Evaluated by psych -- does not have capacity for medical decisions Disposition Placement pending. Medically stable. Full Code DVT; heparin l Quality Stroke Does the patient have a stroke diagnosis?: No VTE Prior VTE?: No VTE Risk Level:: Medical - moderate - high VTE Device Contraindication: N/A - Device Ordered VTE Drug Contraindication: N/A - Med Ordered
[2021-06-10 12:00] VITALS: BP 114/58; PULSE 74; RESP 18; TEMP 36.6; O2SAT 97
[2021-06-10 16:00] VITALS: BP 127/60; PULSE 77; RESP 17; TEMP 36.2; O2SAT 95
[2021-06-10] MEDS: Heparin Sodium,Porcine 5,000 UNIT/ML VIAL 5000 UNIT SUBCUT (16:40)
[2021-06-10 19:38] VITALS: BP 116/56; PULSE 80; RESP 16; TEMP 36.6; O2SAT 96
[2021-06-10] MEDS: OLANZapine 5 MG TABLET PO (19:50)
[2021-06-10 23:41] VITALS: BP 92/52; PULSE 63; RESP 18; TEMP 36.6; O2SAT 95
[2021-06-11 04:17] VITALS: BP 141/63; PULSE 48; RESP 18; TEMP 36.6; O2SAT 96
[2021-06-11] MEDS: Omeprazole 20 MG CAPSULE.DR PO (05:17)
[2021-06-11] MEDS: Heparin Sodium,Porcine 5,000 UNIT/ML VIAL 5000 UNIT SUBCUT ×2 (05:17→15:35)
--- NOTE | 2021-06-11 08:38 | HO.PM.IMPN ---
Subjective Subjective Date of Service: 06/11/21 Interval History: seen and examined thinks hes in [place], but knows the president and year otherwise disoriented Review of Systems negative except interval history Physical Exam Vital Signs: Vital Signs: Last Vital Signs Temp 98 F 06/11/21 04:17 Pulse 48 L 06/11/21 04:17 Resp 18 06/11/21 04:17 BP 141/63 H 06/11/21 04:17 Pulse Ox 96 06/11/21 04:17 Body Mass Index 21.1 Const: Other: General - no acute distress, appears comfortable Cardiovascular - regular rate and rhythm, S1-S2 Lungs - normal respiratory effort, clear to auscultation bilaterally, no wheezing Abdomen - soft, nontender, no rebound or guarding Extremities - no edema bilaterally Neuro - awake and alert, no focal deficits; oriented to time and self, disoriented to place Objective Data Active Medications Folic Acid (Folic Acid 1 Mg Tablet) 1 mg PO DAILY [facility] Last Admin: 06/10/21 08:54 Dose: 1 mg Documented by: SARA Heparin Sodium (Porcine) (Heparin Sodium,Porcine 5,000 Unit/Ml Vial) 5,000 unit SUBCUT Q12H [facility] Last Admin: 06/11/21 05:17 Dose: 5,000 unit Documented by: SYLVIA Hydroxyzine HCl (Hydroxyzine Hcl 50 Mg/Ml Vial) 25 mg IM Q6H PRN PRN Reason: anxiety/restlessness Last Admin: 06/10/21 22:22 Dose: 25 mg Documented by: SYLVIA Olanzapine (Olanzapine 5 Mg Tablet) 5 mg PO BEDTIME [facility] Last Admin: 06/10/21 19:50 Dose: 5 mg Documented by: SYLVIA Omeprazole (Omeprazole 20 Mg Capsule.Dr) 20 mg PO DAILY@0630 [facility] Last Admin: 06/11/21 05:17 Dose: 20 mg Documented by: SYLVIA Pharmacy Consult (Consult Rx Perform Med Rec) 1 each MISCELLANE ONCE PRN PRN Reason: Consult order Sodium Chloride (0.9 % Sodium Chloride Flush 3 Ml Syringe) 3 ml IVFLUSH QSHIFT [facility] Last Admin: 06/11/21 00:21 Dose: Not Given Documented by: SYLVIA Non-Admin Reason: No Access Thiamine HCl (Thiamine Hcl 100 Mg Tablet) 100 mg PO DAILY [facility] Last Admin: 06/10/21 08:54 Dose: 100 mg Documented by: SARA Labs CBC & Chem 7: 05/30/21 05:39 06/05/21 08:41 Assessment and Plan (1) Dementia with behavioral disturbance: Status: Acute Assessment and Plan: This is a 75 yo M who presented to the ED on 05/23/21 for AMS and failure to thrive. He was initially going to be placed at a facility, but on 05/29 was noted to have cough and a CXR revealed a new R base infiltrate concerning for aspiration pneumonia. He was subsequently medically admitted. 1. Dementia (per prior documentation) with behavioral disturbances Continue medications per psych Evaluated by psych -- does not have capacity 2. Aspiration Pneumonia completed treatment with IV and oral meds Diet -- nectar thick and Ground/mech alerted 3. Suspected scabies Permethrin given 4. Stage 2 pressure ucler (L heel / M medial heel) - present on admission 4a. Stage 1 bilateral buttock - present on admission seen by roving department end finder with following instructions: Woundres Gel for the heel + Foam dressing Barrier cream Continue other usual decub preacutions -- nutrition + air loss bed + nutrition (on supplements), etc Pending placement. Medically stable. Monitor labs q 1-2 weeks -- will order for tomorrow AM Quality Stroke Does the patient have a stroke diagnosis?: No VTE Prior VTE?: No VTE Risk Level:: Medical - moderate - high VTE Device Contraindication: N/A - Device Ordered VTE Drug Contraindication: N/A - Med Ordered
[2021-06-11] MEDS: Thiamine HCL 100 MG TABLET PO (09:42)
[2021-06-11] MEDS: Folic Acid 1 MG TABLET PO (09:42)
[2021-06-11 10:57] VITALS: BP 135/63; PULSE 68; RESP 18; TEMP 36.1; O2SAT 98
--- NOTE | 2021-06-11 12:11 | MHC.CLN ---
F/U INTAKE AT MEALS VARIABLE, BUT USUALLY 100%. DIET=2 GRAM SODIUM, NDD2, THIN LIQUIDS; SUPPLEMENT ENSURE TID (1050 KCAL, 48 G PROTEIN). WOUNDS: STAGE I BILATERAL BUTTOCKS, STAGE II LEFT MEDIAL HEEL. CONTINUE CURRENT NUTRITION ORDER.
--- NOTE | 2021-06-11 12:52 | MHC.CM.PN ---
Addendum entered by Nathalia Koroma 06/11/21 13:02: EMR REVIEWED, PER CM SCIENCE LIAISON CERT AND CHUCK FOR TEMPORARY GUARDIANSHIP/CONSERVATORSHIP WILL BE FAXED SENT TO [facility] COMMERCIAL PROPERTY MANAGER (done). PT WILL REMAIN INPT AND WILL NEED LTC PAYOR PRIOR TO D/C. SNF'S HAVE CONTINUED TO DECLINE PT D/T NO LTC PLAN/PAYOR AND SITUATION W/HCP WHO REMAINS INCARCERATED. Original Note: nurse child care counselor note electronic medical record reviewed along with case DISCUSSED ON MULTIPLE DISCIPLINARY ROUNDS. (PER DOCUMENTATION PATIENT ADMITTED ( RFOR ALTERED MENTAL STATUS CHANGES AND FAILURE TO THRIEVE ON 05/29 21 COUGH AND CXR NEW BASE INFILTRATE CONCERNING FOR ASPIRATION PNA EVALUATED BY PSYCH AND PLACED ON PATIENT DOES NOT HAVE CAPACITY TO MAKE HIS OWN MEDICAL DECISIONS PER PSYCHIATRIC EVALUATION CONTINUE WITH PSYCH MEDICATIONS , COMPLETED TREATMENT FOR ASPIRATION PNA, ON NECTAR THICK AND GROUND/MECHANICAL DIET S/P QUESTION OF SCABIES AND TREATED WITH PERMETHIN, DOCUMENTED STAGE 2 PRESSURE ULCER LEFT HEEL AND MEDICAL HEEL (PRESENT ON ADMISSION) STAGE I BUTTOCK BILATERALLY ALSO PRESENT ON ADMISSION FOLLOWED BY WOUND CARE NURSE GEL FOR THE HEEL AND FOAM DRESSING BARRIER CREAM case advocate to continue to follow for discharge needs
--- NOTE | 2021-06-11 14:04 | MHC.SL.SWA ---
Speech Pathologist Impression: Risk of Aspiration Oralpharyngeal Dysphagia Risk of Aspiration Due to: Poor PO Intake Reduced Cognition Dysphasia Diet Status: Upgrade Liquid Consistency and Strategies for Safe Swallow: Liquid Intake Recommendation: Thin Liquid Intake Strategies: Small Sips No Straws Solid Food Consistency: Dietary Recommendations: Grnd/Mech Altered (NDD2) Additional Modifications to Solid Foods: Recommend UPGRADE GROUND/MECH ALTERED (NDD2) solids and maintain NECTAR THICK liquids with pills CRUSHED in PUREE. Recommend total supervision during meals, and assistance as needed. Continue aspiration precautions. Oral Medication Intake: Crushed with Puree Compensatory Strategies and Precautions to be Taken for Safe Swallow: Sitting Upright (90 deg) No Straw Liquids from Cup Small Bites and Sips Alternate Liquids/Solids Supervision While Eating and Drinking for Safe Swallow: Total Assistance Foods to Avoid: Swallowing Recommended Treatments: Compens. Strategy Educat. Recommendation for Speech: Inpatient Speech Therapy Comment 06/11/21: Pt and Sitter reported that he had a good breakfast this a.m. Pt took cup sips of thin liquid with timely swallow, no clinical signs of aspiration. Pt independently ate puree consistency, with timely swallow. Pt mildly impulsive about taking large spoonfuls. Pt took small amount of solid, with prolonged oral phase (mastication) and oral residual after swallow. Resdidual cleared with sip of liquid. Continue with current diet as recommended, Pt tolerating it well. Frequency/Duration: Date Range for Service Req: Timeline to reassess: Supervising Producer Clinican/Clinical Fellow: No Supervisory Statement: I have reviewed and agree with the student/clinical fellow's documentation: N/A Speech Language Pathologist: Rose Joya M.A., CCC-GUARD DRIVER
[2021-06-11 15:29] VITALS: BP 122/62; PULSE 77; RESP 18; TEMP 36.4; O2SAT 97
--- NOTE | 2021-06-11 15:32 | MHC.CM.PN ---
EMR REVIEWED, PT RECEIVED SECOND TX OF PERMETHRIN FOR SCABIE, PT TXD 05/30/21 AND 06/06/21, PT COMPLETED IV AND ORAL ABX FOR ASP PNA, PT REMAINS MEDICALLY CLEARED, [facility] [place] GOING FOR TEMPORARY GUARDIANSHIP AND CONSERVATORSHIP, CM WILL CONT TO FOLLOW D/C NEEDS.
--- NOTE | 2021-06-11 17:06 | MHC.SL.SWA ---
Speech Pathologist Impression: Risk of Aspiration Oralpharyngeal Dysphagia Risk of Aspiration Due to: Poor PO Intake Reduced Cognition Dysphasia Diet Status: Upgrade Liquid Consistency and Strategies for Safe Swallow: Liquid Intake Recommendation: Thin Liquid Intake Strategies: Small Sips No Straws Solid Food Consistency: Dietary Recommendations: Grnd/Mech Altered (NDD2) Additional Modifications to Solid Foods: Continue GROUND/MECH ALTERED (NDD2) solids and maintain thin liquids with pills CRUSHED in PUREE. Recommend total supervision during meals, and assistance as needed. Continue aspiration precautions. Oral Medication Intake: Crushed with Puree Compensatory Strategies and Precautions to be Taken for Safe Swallow: Sitting Upright (90 deg) No Straw Liquids from Cup Small Bites and Sips Alternate Liquids/Solids Supervision While Eating and Drinking for Safe Swallow: Total Assistance Foods to Avoid: Swallowing Recommended Treatments: Compens. Strategy Educat. Recommendation for Speech: Inpatient Speech Therapy Comment: 06/11: Pt current diet is GROUND/MECH ALTERED (NDD2) solids and THIN liquids, with pills CRUSHED in PUREE. Pt observed this AM to be tolerating diet well. On hard solid trial Pt had prolonged oral phase due to mastication and residual in oral cavity after swallow, which was cleared by sip of liquid. Given dental integrity issues, prolonged mastication, risk of residual, current diet consistency should continue. Aspiration precautions and 1:1 supervision remain appropriate due to impulsivity and impaired cognition. SOAKING PITS SUPERVISOR will continue to follow pt throughout his stay to determine the safest and least restrictive diet consistency. Frequency/Duration: Date Range for Service Req: Timeline to reassess: Plastic Tile Layer Clinican/Clinical Fellow: No Supervisory Statement: I have reviewed and agree with the student/clinical fellow's documentation: N/A Speech Language Pathologist: Cele Hopkins M.A., [facility]-SOAKING PITS SUPERVISOR
[2021-06-11] MEDS: OLANZapine 5 MG TABLET PO (19:54)
[2021-06-11 20:00] VITALS: BP 134/62; PULSE 78; RESP 18; TEMP 37; O2SAT 98
[2021-06-11] MEDS: hydrOXYzine HCL 50 MG/ML VIAL 25 MG IM (20:55)
[2021-06-12] VITALS (7 sets, daily range): BP systolic 110–168; BP diastolic 60–83; PULSE 61–71; RESP 16–18; TEMP 36.1–36.7; O2SAT 91–99
[2021-06-12] MEDS: Heparin Sodium,Porcine 5,000 UNIT/ML VIAL 5000 UNIT SUBCUT ×2 (02:14→15:36)
[2021-06-12 05:30] LABS: Hematocrit 34.1 % (42.0-52.0); Hemoglobin 10.7 g/dl (14.0-18.0); Mean Corpuscular HGB Conc 31.4 g/dl (31.0-36.0); Mean Corpuscular Hemoglobin 29.9 pg (27.0-33.0); Mean Corpuscular Volume 95.3 fL (80.0-98.0); Mean Platelet Volume 12.3 fL (9.4-12.4); Platelet Count 216 X10*3/uL (160-400); Red Blood Count 3.58 X10*6/uL (4.60-5.80); Red Cell Distribution Width 14.4 % (11.0-16.0); White Blood Count 6.5 X10*3/uL (4.8-10.8)
[2021-06-12 05:43] LABS: Anion Gap 10 (12-20); Blood Urea Nitrogen 25 mg/dL (9-16); Calcium 8.2 mg/dL (8.4-10.2); Carbon Dioxide 31 mmol/L (22-29); Chloride 105 mmol/L (96-108); Estimated Glomerular Filt Rate > 60; Glucose Random 110 mg/dL (60-115); Potassium 4.3 mmol/L (3.3-5.1); Sodium 142 mmol/L (135-145)
[2021-06-12] MEDS: Omeprazole 20 MG CAPSULE.DR PO (05:54)
[2021-06-12] MEDS: Folic Acid 1 MG TABLET PO (07:17)
[2021-06-12] MEDS: Thiamine HCL 100 MG TABLET PO (07:17)
--- NOTE | 2021-06-12 11:26 | P.PNIM_ITS ---
Subjective Subjective Date of Service: 06/12/21 Interval History: seen and examined sitting in chair no new events reported Review of Systems negative except interval history Physical Exam Vital Signs: Vital Signs: Last Vital Signs Temp 97.6 F 06/12/21 11:18 Pulse 69 06/12/21 11:18 Resp 17 06/12/21 11:18 BP 144/83 H 06/12/21 11:18 Pulse Ox 98 06/12/21 11:18 Body Mass Index 21.1 Const: Other: General - no acute distress, appears comfortable Cardiovascular - regular rate and rhythm, S1-S2 Lungs - normal respiratory effort, clear to auscultation bilaterally, no wheezing Abdomen - soft, nontender, no rebound or guarding Extremities - no edema bilaterally Neuro - awake and alert, no focal deficits; oriented to time and self, disoriented to place Objective Data Active Medications Folic Acid (Folic Acid 1 Mg Tablet) 1 mg PO DAILY [facility] Last Admin: 06/12/21 07:17 Dose: 1 mg Documented by: TERESITA Heparin Sodium (Porcine) (Heparin Sodium,Porcine 5,000 Unit/Ml Vial) 5,000 unit SUBCUT Q12H [facility] Last Admin: 06/12/21 02:14 Dose: 5,000 unit Documented by: GIL Hydroxyzine HCl (Hydroxyzine Hcl 50 Mg/Ml Vial) 25 mg IM Q6H PRN PRN Reason: anxiety/restlessness Last Admin: 06/11/21 20:55 Dose: 25 mg Documented by: GIL Olanzapine (Olanzapine 5 Mg Tablet) 5 mg PO BEDTIME [facility] Last Admin: 06/11/21 19:54 Dose: 5 mg Documented by: GIL Omeprazole (Omeprazole 20 Mg Capsule.) 20 mg PO DAILY@0630 [facility] Last Admin: 06/12/21 05:54 Dose: 20 mg Documented by: GIL Pharmacy Consult (Consult Rx Perform Med Rec) 1 each MISCELLANE ONCE PRN PRN Reason: Consult order Sodium Chloride (0.9 % Sodium Chloride Flush 3 Ml Syringe) 3 ml IVFLUSH QSHIFT [facility] Last Admin: 06/12/21 07:17 Dose: Not Given Documented by: TERESITA Non-Admin Reason: No Access Thiamine HCl (Thiamine Hcl 100 Mg Tablet) 100 mg PO DAILY [facility] Last Admin: 06/12/21 07:17 Dose: 100 mg Documented by: TERESITA Labs CBC & Chem 7: 06/12/21 05:12 06/12/21 05:12 Labs: Laboratory Results - last 24 hr 06/12/21 06/12/21 05:12 05:12 MCV 95.3 MCH 29.9 MCHC 31.4 RDW 14.4 Plt Count 216 D MPV 12.3 Absolute Nucleated RBC 0.000 Nucleated RBC % (auto) 0.0 Anion Gap 10 L Estim Creat Clear Calc 52.0 Estimated GFR > 60 Random Glucose 110 Calcium 8.2 L Assessment and Plan (1) Dementia with behavioral disturbance: Status: Acute Assessment and Plan: This is a 75 yo M who presented to the ED on 05/23/21 for AMS and failure to thrive. He was initially going to be placed at a facility, but on 05/29 was noted to have cough and a CXR revealed a new R base infiltrate concerning for aspiration pneumonia. He was subsequently medically admitted. no new events repeat labs done, stable 1. Dementia (per prior documentation) with behavioral disturbances Continue medications per psych Evaluated by psych -- does not have capacity 2. Aspiration Pneumonia completed treatment with IV and oral meds Diet -- nectar thick and Ground/[facility] alerted 3. Suspected scabies Permethrin given 4. Stage 2 pressure ucler (L heel / M medial heel) - present on admission 4a. Stage 1 bilateral buttock - present on admission seen by test engine evaluator with following instructions: Woundres Gel for the heel + Foam dressing Barrier cream Continue other usual decub preacutions -- nutrition + air loss bed + nutrition (on supplements), etc Pending placement. Medically stable. Quality Stroke Does the patient have a stroke diagnosis?: No VTE Prior VTE?: No VTE Risk Level:: Medical - moderate - high VTE Device Contraindication: N/A - Device Ordered VTE Drug Contraindication: N/A - Med Ordered
[2021-06-12] MEDS: hydrOXYzine HCL 50 MG/ML VIAL 25 MG IM ×2 (13:45→19:49)
--- NOTE | 2021-06-12 16:11 | MHC.SL.SWA ---
Speech Pathologist Impression: Risk of Aspiration Oralpharyngeal Dysphagia Risk of Aspiration Due to: Poor PO Intake Reduced Cognition Dysphasia Diet Status: Upgrade Liquid Consistency and Strategies for Safe Swallow: Liquid Intake Recommendation: Thin Liquid Intake Strategies: Small Sips No Straws Solid Food Consistency: Dietary Recommendations: Grnd/Mech Altered (NDD2) Additional Modifications to Solid Foods: Recommend UPGRADE GROUND/MECH ALTERED (NDD2) solids and maintain NECTAR THICK liquids with pills CRUSHED in PUREE. Recommend total supervision during meals, and assistance as needed. Continue aspiration precautions. Oral Medication Intake: Crushed with Puree Compensatory Strategies and Precautions to be Taken for Safe Swallow: Sitting Upright (90 deg) No Straw Liquids from Cup Small Bites and Sips Alternate Liquids/Solids Supervision While Eating and Drinking for Safe Swallow: Total Assistance Foods to Avoid: Swallowing Recommended Treatments: Compens. Strategy Educat. Recommendation for Speech: Inpatient Speech Therapy Comment: 06/12: Pt current diet is GROUND/MECH ALTERED (NDD2) solids and THIN liquids, with pills CRUSHED in PUREE. Pt observed this AM to be tolerating diet well. On hard solid trial Pt had prolonged oral phase due to mastication and residual in oral cavity after swallow, which was cleared by sip of liquid. Given dental integrity issues, prolonged mastication, risk of residual, current diet consistency should continue. Aspiration precautions and 1:1 supervision remain appropriate due to impulsivity and impaired cognition. SOCIAL SERVICES AIDE will continue to follow pt throughout his stay to determine the safest and least restrictive diet consistency. Frequency/Duration: Date Range for Service Req: Timeline to reassess: Vp Legal Affairs Clinican/Clinical Fellow: No Supervisory Statement: I have reviewed and agree with the student/clinical fellow's documentation: N/A Speech Language Pathologist: Cele Hopkins M.A., CCC-SOCIAL SERVICES AIDE
[2021-06-12] MEDS: OLANZapine 5 MG TABLET PO (19:49)
[2021-06-12] MEDS: traZODone HCL 25 MG HALFTAB PO (21:45)
[2021-06-13] MEDS: Heparin Sodium,Porcine 5,000 UNIT/ML VIAL 5000 UNIT SUBCUT ×2 (03:47→15:15)
[2021-06-13 03:50] VITALS: BP 125/56; PULSE 59; RESP 18; TEMP 36.2; O2SAT 94
[2021-06-13 08:00] VITALS: BP 121/57; PULSE 61; RESP 18; TEMP 36.3; O2SAT 93
[2021-06-13] MEDS: Folic Acid 1 MG TABLET PO (08:29)
[2021-06-13] MEDS: Thiamine HCL 100 MG TABLET PO (08:30)
--- NOTE | 2021-06-13 09:16 | HO.PM.IMPN ---
Subjective Subjective Date of Service: 06/13/21 Interval History: seen and examined resting comfortably this Am received trazadone at bedtime yesterday with good effect per staff internist office based only Review of Systems negative except interval history Physical Exam Vital Signs: Vital Signs: Last Vital Signs Temp 97.2 F 06/13/21 03:50 Pulse 59 06/13/21 03:50 Resp 18 06/13/21 03:50 BP 125/56 L 06/13/21 03:50 Pulse Ox 94 06/13/21 03:50 Body Mass Index 21.1 Const: Other: General - no acute distress, appears comfortable Cardiovascular - regular rate and rhythm, S1-S2 Lungs - normal respiratory effort, clear to auscultation bilaterally, no wheezing Abdomen - soft, nontender, no rebound or guarding Extremities - no edema bilaterally Neuro - awake and alert, no focal deficits; oriented to time and self, disoriented to place Objective Data Active Medications Folic Acid (Folic Acid 1 Mg Tablet) 1 mg PO DAILY [facility] Last Admin: 06/13/21 08:29 Dose: 1 mg Documented by: KARINA Heparin Sodium (Porcine) (Heparin Sodium,Porcine 5,000 Unit/Ml Vial) 5,000 unit SUBCUT Q12H [facility] Last Admin: 06/13/21 03:47 Dose: 5,000 unit Documented by: GIL Hydroxyzine HCl (Hydroxyzine Hcl 50 Mg/Ml Vial) 25 mg IM Q6H PRN PRN Reason: anxiety/restlessness Last Admin: 06/12/21 19:49 Dose: 25 mg Documented by: GIL Olanzapine (Olanzapine 5 Mg Tablet) 5 mg PO BEDTIME [facility] Last Admin: 06/12/21 19:49 Dose: 5 mg Documented by: GIL Omeprazole (Omeprazole 20 Mg Capsule.) 20 mg PO DAILY@0630 [facility] Last Admin: 06/13/21 05:55 Dose: Not Given Documented by: GIL Non-Admin Reason: pt too drowsy Pharmacy Consult (Consult Rx Perform Med Rec) 1 each MISCELLANE ONCE PRN PRN Reason: Consult order Sodium Chloride (0.9 % Sodium Chloride Flush 3 Ml Syringe) 3 ml IVFLUSH QSHIFT [facility] Last Admin: 06/13/21 06:58 Dose: Not Given Documented by: KARINA Non-Admin Reason: No Access Thiamine HCl (Thiamine Hcl 100 Mg Tablet) 100 mg PO DAILY [facility] Last Admin: 06/13/21 08:30 Dose: 100 mg Documented by: KARINA Trazodone HCl (Trazodone Hcl 25 Mg Halftab) 25 mg PO BEDTIME [facility] Labs CBC & Chem 7: 06/12/21 05:12 06/12/21 05:12 Assessment and Plan (1) Dementia with behavioral disturbance: Status: Acute Assessment and Plan: This is a 75 yo M who presented to the ED on 05/23/21 for AMS and failure to thrive. He was initially going to be placed at a facility, but on 05/29 was noted to have cough and a CXR revealed a new R base infiltrate concerning for aspiration pneumonia. He was subsequently medically admitted. no new events repeat labs done, stable trazodone at qhs added, psych following 1. Dementia (per prior documentation) with behavioral disturbances Continue medications per psych Evaluated by psych -- does not have capacity 2. Aspiration Pneumonia completed treatment with IV and oral meds Diet -- nectar thick and Ground/[facility] alerted 3. Suspected scabies Permethrin given 4. Stage 2 pressure ucler (L heel / M medial heel) - present on admission 4a. Stage 1 bilateral buttock - present on admission seen by it senior software engineer java with following instructions: Woundres Gel for the heel + Foam dressing Barrier cream Continue other usual decub preacutions -- nutrition + air loss bed + nutrition (on supplements), etc Pending placement. Medically stable. Quality Stroke Does the patient have a stroke diagnosis?: No VTE Prior VTE?: No VTE Risk Level:: Medical - moderate - high VTE Device Contraindication: N/A - Device Ordered VTE Drug Contraindication: N/A - Med Ordered
--- NOTE | 2021-06-13 10:24 | MHC.SLORD ---
Speech Language Pathology Order Status: Attempted to see pt for dysphagia tx session, though pt was with 1:1 sitter present. This MANAGER UTILIZATION REVIEW did not attempt to wake pt, as pt continues to be restless/agitated at times per RN. Current diet consistency NDD2 GROUND/MECHANICALLY ALTERED solids and THIN liquids. Continue with 1x MANAGER UTILIZATION REVIEW follow-up to verify continued tolerance of pt's current diet consistency before discharge, as pt appears to be on the most appropriate diet consistency at this time.
[2021-06-13 11:33] VITALS: BP 113/56; PULSE 64; RESP 18; TEMP 36.3; O2SAT 95
--- NOTE | 2021-06-13 12:50 | MHC.CM.PN ---
EMR REVIEWED, PER CM DIRECTOR [facility] [place] [facility] PETITIONED [place] FOR TEMPORARY GUARDIANSHIP/CONSERVATORSHIP YESTERDAY 06/12/21. ANTIC PT WILL REMAIN INPT UNTIL GUARDIAN/CONSERVATOR OBTAINED AND [facility]/LTC PAYOR IS IN PLACE.
--- NOTE | 2021-06-13 13:43 | PC.NURSE ---
skin assessment completed. Patient has a healing stage 2 pressure injury to left heel. Woundres gel applied covered with foam. Stage1 to bilateral buttocks- barrier cream applied. No other skin issues noted at this time.
--- NOTE | 2021-06-13 13:52 | MHC.CLN ---
F/U INTAKE AT MEALS VARIABLE BUT USUALLY 100%. DIET=2 GRAM SODIUM, NDD2, THIN LIQUIDS; SUPPLEMENT ENSURE TID (1050 KCAL, 39 G PROTEIN). WOUNDS: STAGE I BILATERAL BUTTOCKS, STAGE II LEFT MEDIAL HEEL-HEALING PER WOUND ASSESSMENT. CONTINUE CURRENT NUTRITION ORDER.
[2021-06-13 15:40] VITALS: BP 122/59; PULSE 52; RESP 17; TEMP 36.7; O2SAT 97
[2021-06-13 20:00] VITALS: BP 109/53; PULSE 50; RESP 18; TEMP 36.9; O2SAT 95
[2021-06-13] MEDS: OLANZapine 5 MG TABLET PO (20:28)
[2021-06-13] MEDS: traZODone HCL 25 MG HALFTAB PO (20:29)
[2021-06-13 23:33] VITALS: BP 113/53; PULSE 57; RESP 16; TEMP 36.7; O2SAT 98
[2021-06-14 04:00] VITALS: BP 126/71; PULSE 52; RESP 16; TEMP 36.1; O2SAT 98
[2021-06-14] MEDS: Heparin Sodium,Porcine 5,000 UNIT/ML VIAL 5000 UNIT SUBCUT ×2 (04:11→15:29)
[2021-06-14] MEDS: Omeprazole 20 MG CAPSULE.DR PO (05:34)
[2021-06-14 07:05] VITALS: BP 113/56; PULSE 55; RESP 15; TEMP 36.4; O2SAT 97
[2021-06-14] MEDS: Thiamine HCL 100 MG TABLET PO (07:55)
[2021-06-14] MEDS: Folic Acid 1 MG TABLET PO ×2 (07:55→07:59)
--- NOTE | 2021-06-14 09:45 | P.PNIM_ITS ---
Subjective Subjective Date of Service: 06/14/21 Interval History: seen and examined this AM has no complaints no new issues reported by chief of staff Review of Systems negative except HPI Physical Exam Vital Signs: Vital Signs: Last Vital Signs Temp 97.5 F 06/14/21 07:05 Pulse 55 06/14/21 07:05 Resp 15 06/14/21 07:05 BP 113/56 L 06/14/21 07:05 Pulse Ox 97 06/14/21 07:05 Body Mass Index 21.1 Const: Other: General - no acute distress, appears comfortable Cardiovascular - regular rate and rhythm, S1-S2 Lungs - normal respiratory effort, clear to auscultation bilaterally, no wheezing Abdomen - soft, nontender, no rebound or guarding Extremities - no edema bilaterally Neuro - awake and alert, no focal deficits; oriented to time and self, disoriented to place Objective Data Active Medications Folic Acid (Folic Acid 1 Mg Tablet) 1 mg PO DAILY [facility] Last Admin: 06/14/21 07:59 Dose: 1 mg Documented by: TERESITA Heparin Sodium (Porcine) (Heparin Sodium,Porcine 5,000 Unit/Ml Vial) 5,000 unit SUBCUT Q12H [facility] Last Admin: 06/14/21 04:11 Dose: 5,000 unit Documented by: GIL Hydroxyzine HCl (Hydroxyzine Hcl 50 Mg/Ml Vial) 25 mg IM Q6H PRN PRN Reason: anxiety/restlessness Last Admin: 06/12/21 19:49 Dose: 25 mg Documented by: GIL Olanzapine (Olanzapine 5 Mg Tablet) 5 mg PO BEDTIME [facility] Last Admin: 06/13/21 20:28 Dose: 5 mg Documented by: GIL Omeprazole (Omeprazole 20 Mg Capsule.) 20 mg PO DAILY@0630 [facility] Last Admin: 06/14/21 05:34 Dose: 20 mg Documented by: GIL Pharmacy Consult (Consult Rx Perform Med Rec) 1 each MISCELLANE ONCE PRN PRN Reason: Consult order Sodium Chloride (0.9 % Sodium Chloride Flush 3 Ml Syringe) 3 ml IVFLUSH QSHIFT [facility] Last Admin: 06/14/21 07:56 Dose: Not Given Documented by: TERESITA Non-Admin Reason: No Access Thiamine HCl (Thiamine Hcl 100 Mg Tablet) 100 mg PO DAILY [facility] Last Admin: 06/14/21 07:55 Dose: 100 mg Documented by: TERESITA Trazodone HCl (Trazodone Hcl 25 Mg Halftab) 25 mg PO BEDTIME [facility] Last Admin: 06/13/21 20:29 Dose: 25 mg Documented by: GIL Labs CBC & Chem 7: 06/12/21 05:12 06/12/21 05:12 Assessment and Plan (1) Dementia with behavioral disturbance: Status: Acute Assessment and Plan: This is a 75 yo M who presented to the ED on 05/23/21 for AMS and failure to thrive. He was initially going to be placed at a facility, but on 05/29 was noted to have cough and a CXR revealed a new R base infiltrate concerning for aspiration pneumonia. He was subsequently medically admitted. no new events repeat labs done, stable tolerating trazadone 1. Dementia (per prior documentation) with behavioral disturbances Continue medications per psych Evaluated by psych -- does not have capacity 2. Aspiration Pneumonia completed treatment with IV and oral meds Diet -- [facility]ctar thick and [facility] 3. Suspected scabies Permethrin given 4. Stage 2 pressure ucler (L heel / M medial heel) - present on admission 4a. Stage 1 bilateral buttock - present on admission seen by rehabilitation program coordinator with following instructions: Woundres Gel for the heel + Foam dressing Barrier cream Continue other usual decub preacutions -- nutrition + air loss bed + nutrition (on supplements), etc Pending placement. Medically stable. Quality Stroke Does the patient have a stroke diagnosis?: No VTE Prior VTE?: No VTE Risk Level:: Medical - moderate - high VTE Device Contraindication: N/A - Device Ordered VTE Drug Contraindication: N/A - Med Ordered
[2021-06-14 10:49] VITALS: BP 111/62; PULSE 65; RESP 16; TEMP 36.2; O2SAT 98
--- NOTE | 2021-06-14 12:06 | MHC.SL.SWA ---
Addendum entered and electronically signed by OLYA Ventura 06/14/21 17:03: Note: Liquid texture noted in Solid Food Consistency is in error. Pt is currently on THIN LIQUID, not nectar thick. Pt requires supervision during meals due to impulsivity/confusion. Original Note: Speech Pathologist Impression: Risk of Aspiration Oralpharyngeal Dysphagia Risk of Aspiration Due to: Poor PO Intake Reduced Cognition Dysphasia Diet Status: Upgrade Liquid Consistency and Strategies for Safe Swallow: Liquid Intake Recommendation: Thin Liquid Intake Strategies: Small Sips No Straws Solid Food Consistency: Dietary Recommendations: Grnd/Mech Altered (NDD2) Additional Modifications to Solid Foods: Recommend UPGRADE GROUND/MECH ALTERED (NDD2) solids and maintain NECTAR THICK liquids with pills CRUSHED in PUREE. Recommend total supervision during meals, and assistance as needed. Continue aspiration precautions. Oral Medication Intake: Crushed with Puree Compensatory Strategies and Precautions to be Taken for Safe Swallow: Sitting Upright (90 deg) Liquids from Cup Supervision While Eating and Drinking for Safe Swallow: Intermittent Supervision Foods to Avoid: Swallowing Recommended Treatments: Compens. Strategy Educat. Recommendation for Speech: Inpatient Speech Therapy Comment: 06/14/21: Pt was seen for dysphagia treatment in his room. Pt remains on contact precautions for scabies. Current diet consistency NDD2 GROUND/MECHANICALLY altered solids and Thin Liquids. Pt has Sitter in room, Sitter reported that Pt had just eaten his breakfast and ate well. Pt was pleasant, mildly confused, but quite talkative, communicating about his time in service. Pt. independently took cup sips of thin liquid with timely swallow and no signs of aspiration. Pt independently took spoonfuls of ice cream, with timely swallow and no signs of aspiration. Pt independently took small amount of kenneth cracker (solid), with prolonged oral phase due to mastication, oral residual after swallow, which was cleared by sip of liquid. Current diet appropriate, Pt is tolerating it well. Pt will need continued supervision during meals due to impulsivity/confusion. Recommend Pt continues with current diet, discharge from Speech Pathology. Frequency/Duration: Date Range for Service Req: Timeline to reassess: Medicaid Business Analyst Clinican/Clinical Fellow: No Supervisory Statement: I have reviewed and agree with the student/clinical fellow's documentation: N/A Speech Language Pathologist: Cele Hopkins M.A., CCC-PRESS OPERATOR [employer]
[2021-06-14 15:32] VITALS: BP 167/72; PULSE 65; RESP 17; TEMP 36.7; O2SAT 97
[2021-06-14 19:28] VITALS: BP 137/67; PULSE 70; RESP 17; TEMP 36.4; O2SAT 96
[2021-06-14] MEDS: traZODone HCL 25 MG HALFTAB PO (20:32)
[2021-06-14] MEDS: OLANZapine 5 MG TABLET PO (20:32)
[2021-06-14] MEDS: hydrOXYzine HCL 50 MG/ML VIAL 25 MG IM (23:00)
[2021-06-14 23:32] VITALS: BP 112/56; PULSE 73; RESP 16; TEMP 36.8; O2SAT 96
[2021-06-15 03:17] VITALS: BP 119/58; PULSE 54; RESP 16; TEMP 36.7; O2SAT 98
[2021-06-15] MEDS: Omeprazole 20 MG CAPSULE.DR PO (05:16)
[2021-06-15] MEDS: Heparin Sodium,Porcine 5,000 UNIT/ML VIAL 5000 UNIT SUBCUT ×2 (05:16→15:18)
--- NOTE | 2021-06-15 08:49 | HO.PM.IMPN ---
Subjective Subjective Date of Service: 06/15/21 Interval History: seen and examined this AM has his bed sheets over his head and doesnt want to talk today Review of Systems negative except HPI Physical Exam Vital Signs: Vital Signs: Last Vital Signs Temp 98.0 F 06/15/21 03:17 Pulse 54 06/15/21 03:17 Resp 16 06/15/21 03:17 BP 119/58 L 06/15/21 03:17 Pulse Ox 98 06/15/21 03:17 Body Mass Index 21.1 Const: Other: General - no acute distress, appears comfortable Cardiovascular - regular rate and rhythm, S1-S2 Lungs - normal respiratory effort, clear to auscultation bilaterally, no wheezing Abdomen - soft, nontender, no rebound or guarding Extremities - no edema bilaterally Neuro - awake and alert, no focal deficits; oriented to time and self, disoriented to place Objective Data Active Medications Folic Acid (Folic Acid 1 Mg Tablet) 1 mg PO DAILY [facility] Last Admin: 06/14/21 07:59 Dose: 1 mg Documented by: TERESITA Heparin Sodium (Porcine) (Heparin Sodium,Porcine 5,000 Unit/Ml Vial) 5,000 unit SUBCUT Q12H [facility] Last Admin: 06/15/21 05:16 Dose: 5,000 unit Documented by: SYLVIA Hydroxyzine HCl (Hydroxyzine Hcl 50 Mg/Ml Vial) 25 mg IM Q6H PRN PRN Reason: anxiety/restlessness Last Admin: 06/14/21 23:00 Dose: 25 mg Documented by: SYLVIA Olanzapine (Olanzapine 5 Mg Tablet) 5 mg PO BEDTIME [facility] Last Admin: 06/14/21 20:32 Dose: 5 mg Documented by: SYLVIA Omeprazole (Omeprazole 20 Mg Capsule.) 20 mg PO DAILY@0630 [facility] Last Admin: 06/15/21 05:16 Dose: 20 mg Documented by: SYLVIA Pharmacy Consult (Consult Rx Perform Med Rec) 1 each MISCELLANE ONCE PRN PRN Reason: Consult order Sodium Chloride (0.9 % Sodium Chloride Flush 3 Ml Syringe) 3 ml IVFLUSH QSHIFT [facility] Last Admin: 06/15/21 00:15 Dose: Not Given Documented by: SYLVIA Non-Admin Reason: No Access Thiamine HCl (Thiamine Hcl 100 Mg Tablet) 100 mg PO DAILY [facility] Last Admin: 06/14/21 07:55 Dose: 100 mg Documented by: TERESITA Trazodone HCl (Trazodone Hcl 25 Mg Halftab) 25 mg PO BEDTIME [facility] Last Admin: 06/14/21 20:32 Dose: 25 mg Documented by: SYLVIA Labs CBC & Chem 7: 06/12/21 05:12 06/12/21 05:12 Assessment and Plan (1) Dementia with behavioral disturbance: Status: Acute Assessment and Plan: This is a 75 yo M who presented to the ED on 05/23/21 for AMS and failure to thrive. He was initially going to be placed at a facility, but on 05/29 was noted to have cough and a CXR revealed a new R base infiltrate concerning for aspiration pneumonia. He was subsequently medically admitted. no new events repeat labs done, stable tolerating trazadone will d/c q4h vitals and check BID unless symptomatic 1. Dementia (per prior documentation) with behavioral disturbances Continue medications per psych Evaluated by psych -- does not have capacity 2. Aspiration Pneumonia completed treatment with IV and oral meds Diet -- nectar thick and Ground/[facility] alerted 3. Suspected scabies Permethrin given 4. Stage 2 pressure ucler (L heel / M medial heel) - present on admission 4a. Stage 1 bilateral buttock - present on admission seen by switch operators supervisor with following instructions: Woundres Gel for the heel + Foam dressing Barrier cream Continue other usual decub preacutions -- nutrition + air loss bed + nutrition (on supplements), etc Pending placement. Medically stable. Quality Stroke Does the patient have a stroke diagnosis?: No VTE Prior VTE?: No VTE Risk Level:: Medical - moderate - high VTE Device Contraindication: N/A - Device Ordered VTE Drug Contraindication: N/A - Med Ordered
[2021-06-15] MEDS: Thiamine HCL 100 MG TABLET PO (11:13)
[2021-06-15] MEDS: Folic Acid 1 MG TABLET PO (11:13)
[2021-06-15 11:35] VITALS: BP 114/60; PULSE 56; RESP 16; TEMP 36.7; O2SAT 98
--- NOTE | 2021-06-15 13:37 | MHC.CLN ---
F/U INTAKE AT MEALS USUALLY 100%. DIET=2 GRAM SODIUM, NDD2, THIN LIQUIDS; SUPPLEMENT ENSURE TID (1050 KCAL, 39 G PROTEIN). WOUNDS: STAGE I BILATERAL BUTTOCKS, STAGE II LEFT HEEL. CONTINUE CURRENT NUTRITION ORDER.
--- NOTE | 2021-06-15 14:55 | MHC.CM.PN ---
Addendum entered by Nathalia Koroma 06/15/21 14:57: court date 07/12/21/ correxction Original Note: NURSE AUTOMOBILE RACER NOTE ELECTRONIC MEDICAL RECORD REVIEWED ALONG WITH CSSE DISCUSSED WITH STAFF NURSE AND ON MULTIPLE DISCIPLINARY ROUNDS. [facility] PETITIONED THE COURTS FOR TEMPORARY GUARDIANSHIP/CONSERVATORSHIP 06/15/21 AND PT WILL REMAIN INPT UNTIL GUARDIAN/CONSERVATOR OBTAINED AND [facility] [employer] CHUCK/LTC PAYOR IS IN PLACE. manager stone to continue to follow for discharge needs
[2021-06-15 16:00] VITALS: BP 108/56; PULSE 76; RESP 16; TEMP 36; O2SAT 96
[2021-06-15 20:00] VITALS: BP 157/70; PULSE 74; RESP 14; TEMP 36.5; O2SAT 99
[2021-06-15] MEDS: traZODone HCL 25 MG HALFTAB PO (20:56)
[2021-06-15] MEDS: OLANZapine 5 MG TABLET PO (20:56)
[2021-06-15 23:39] VITALS: BP 164/75; PULSE 53; RESP 18; TEMP 36.4; O2SAT 99
[2021-06-16 04:00] VITALS: BP 129/63; PULSE 63; RESP 18; TEMP 36.9; O2SAT 97
--- NOTE | 2021-06-16 07:39 | HO.PM.IMPN ---
Subjective Subjective Date of Service: 06/16/21 Interval History: F/u on encephalopathy, PNA, no new issues, Review of Systems no fever confusion Physical Exam Vital Signs: Vital Signs: Last Vital Signs Temp 98.4 F 06/16/21 04:00 Pulse 63 06/16/21 04:00 Resp 18 06/16/21 04:00 BP 129/63 06/16/21 04:00 Pulse Ox 97 06/16/21 04:00 Body Mass Index 21.1 Const: Other: General - no acute distress, appears comfortable Cardiovascular - regular rate and rhythm, S1-S2 Lungs - normal respiratory effort, clear to auscultation bilaterally, no wheezing Abdomen - soft, nontender, no rebound or guarding Extremities - no edema bilaterally Neuro - awake and alert, no focal deficits; oriented to time and self, disoriented to place Objective Data Active Medications Folic Acid (Folic Acid 1 Mg Tablet) 1 mg PO DAILY [facility] Last Admin: 06/15/21 11:13 Dose: 1 mg Documented by: WILFREDO Heparin Sodium (Porcine) (Heparin Sodium,Porcine 5,000 Unit/Ml Vial) 5,000 unit SUBCUT Q12H [facility] Last Admin: 06/16/21 05:03 Dose: Not Given Documented by: DEONTE Non-Admin Reason: Patient Refused Hydroxyzine HCl (Hydroxyzine Hcl 50 Mg/Ml Vial) 25 mg IM Q6H PRN PRN Reason: anxiety/restlessness Last Admin: 06/14/21 23:00 Dose: 25 mg Documented by: Olanzapine (Olanzapine 5 Mg Tablet) 5 mg PO BEDTIME [facility] Last Admin: 06/15/21 20:56 Dose: 5 mg Documented by: CLARENCE Omeprazole (Omeprazole 20 Mg Capsule.) 20 mg PO DAILY@0630 [facility] Last Admin: 06/16/21 06:11 Dose: Not Given Documented by: DEONTE Non-Admin Reason: Patient Refused Pharmacy Consult (Consult Rx Perform Med Rec) 1 each MISCELLANE ONCE PRN PRN Reason: Consult order Sodium Chloride (0.9 % Sodium Chloride Flush 3 Ml Syringe) 3 ml IVFLUSH QSHIFT [facility] Last Admin: 06/16/21 01:21 Dose: Not Given Documented by: DEONTE Non-Admin Reason: IV Running Thiamine HCl (Thiamine Hcl 100 Mg Tablet) 100 mg PO DAILY [facility] Last Admin: 06/15/21 11:13 Dose: 100 mg Documented by: WILFREDO Trazodone HCl (Trazodone Hcl 25 Mg Halftab) 25 mg PO BEDTIME [facility] Last Admin: 06/15/21 20:56 Dose: 25 mg Documented by: CLARENCE Labs CBC & Chem 7: 06/12/21 05:12 06/12/21 05:12 Assessment and Plan (1) Dementia with behavioral disturbance: Status: Acute Assessment and Plan: 75 yo M who presented to the ED on 05/23/21 for AMS and failure to thrive. He was initially going to be placed at a facility, but on 05/29 was noted to have cough and a CXR revealed a new R base infiltrate concerning for aspiration pneumonia has completed Abx course and now awaiting placement 1. Dementia (per prior documentation) with behavioral disturbances Continue medications per psych Evaluated by psych -- does not have capacity 2. Aspiration Pneumonia completed treatment with IV and oral meds Diet -- nectar thick and Ground/[facility] alerted 3. Suspected scabies--treated with Permethrin x 2 doses Permethrin, a week apart 4. Stage 2 pressure ucler (L heel / M medial heel) - present on admission 4a. Stage 1 bilateral buttock - present on admission seen by machine technician with following instructions: Woundres Gel for the heel + Foam dressing Barrier cream Continue other usual decub preacutions -- nutrition + air loss bed + nutrition (on supplements), etc Dispo: Placement pending Quality Stroke Does the patient have a stroke diagnosis?: No VTE Prior VTE?: No VTE Risk Level:: Medical - moderate - high VTE Device Contraindication: N/A - Device Ordered VTE Drug Contraindication: N/A - Med Ordered
[2021-06-16 08:00] VITALS: TEMP 36.6
[2021-06-16] MEDS: Thiamine HCL 100 MG TABLET PO (10:01)
[2021-06-16] MEDS: Omeprazole 20 MG CAPSULE.DR PO (10:02)
[2021-06-16] MEDS: Folic Acid 1 MG TABLET PO (10:03)
[2021-06-16 11:26] VITALS: BP 132/64; PULSE 72; RESP 18; TEMP 36.6; O2SAT 96
[2021-06-16 15:34] VITALS: BP 131/72; PULSE 66; RESP 18; TEMP 36.5; O2SAT 97
[2021-06-16] MEDS: Heparin Sodium,Porcine 5,000 UNIT/ML VIAL 5000 UNIT SUBCUT (16:50)
[2021-06-16] MEDS: 0.9 % Sodium Chloride Flush 3 ML SYRINGE IVFLUSH (16:50)
[2021-06-16 19:23] VITALS: BP 134/74; PULSE 46; RESP 19; TEMP 36.2; O2SAT 96
[2021-06-16] MEDS: traZODone HCL 25 MG HALFTAB PO (20:50)
[2021-06-16] MEDS: OLANZapine 5 MG TABLET PO (20:50)
[2021-06-16 23:49] VITALS: BP 143/72; PULSE 57; RESP 16; TEMP 36.3; O2SAT 98
[2021-06-17 04:00] VITALS: BP 136/69; PULSE 63; RESP 16; TEMP 36.4; O2SAT 96
[2021-06-17] MEDS: Heparin Sodium,Porcine 5,000 UNIT/ML VIAL 5000 UNIT SUBCUT ×2 (04:59→15:54)
[2021-06-17] MEDS: Omeprazole 20 MG CAPSULE.DR PO (05:02)
[2021-06-17 06:56] VITALS: BP 126/70; PULSE 72; RESP 19; TEMP 36.1; O2SAT 98
[2021-06-17] MEDS: Folic Acid 1 MG TABLET PO (10:39)
[2021-06-17] MEDS: Thiamine HCL 100 MG TABLET PO (10:39)
--- NOTE | 2021-06-17 11:55 | HO.PM.IMPN ---
Subjective Subjective Date of Service: 06/17/21 Interval History: no cough no fever Review of Systems Review of Systems: Yes all other systems are reviewed and are negative Physical Exam Vital Signs: Vital Signs: Last Vital Signs Temp 97 F 06/17/21 06:56 Pulse 72 06/17/21 06:56 Resp 19 06/17/21 06:56 BP 126/70 06/17/21 06:56 Pulse Ox 98 06/17/21 06:56 Body Mass Index 21.1 Gen: in no acute distress HEENT: sclera anicteric, moist mucus membranes Neck: supple Lungs: clear to auscultation bilaterally Heart: regular rate and rhythm, no murmurs Abd: soft, non-tender, non-distended Ext: no edema Skin: warm/well-perfused Neuro: alert and oriented to self and time Psych: appropriate affect Objective Data Active Medications Folic Acid (Folic Acid 1 Mg Tablet) 1 mg PO DAILY [facility] Last Admin: 06/17/21 10:39 Dose: 1 mg Documented by: AURORA Heparin Sodium (Porcine) (Heparin Sodium,Porcine 5,000 Unit/Ml Vial) 5,000 unit SUBCUT Q12H [facility] Last Admin: 06/17/21 04:59 Dose: 5,000 unit Documented by: ELIO Hydroxyzine HCl (Hydroxyzine Hcl 50 Mg/Ml Vial) 25 mg IM Q6H PRN PRN Reason: anxiety/restlessness Last Admin: 06/14/21 23:00 Dose: 25 mg Documented by: Olanzapine (Olanzapine 5 Mg Tablet) 5 mg PO BEDTIME [facility] Last Admin: 06/16/21 20:50 Dose: 5 mg Documented by: ELIO Omeprazole (Omeprazole 20 Mg Capsule.) 20 mg PO DAILY@0630 [facility] Last Admin: 06/17/21 05:02 Dose: 20 mg Documented by: ELIO Pharmacy Consult (Consult Rx Perform Med Rec) 1 each MISCELLANE ONCE PRN PRN Reason: Consult order Sodium Chloride (0.9 % Sodium Chloride Flush 3 Ml Syringe) 3 ml IVFLUSH QSHIFT [facility] Last Admin: 06/17/21 10:40 Dose: Not Given Documented by: AURORA Non-Admin Reason: No Access Thiamine HCl (Thiamine Hcl 100 Mg Tablet) 100 mg PO DAILY [facility] Last Admin: 06/17/21 10:39 Dose: 100 mg Documented by: AURORA Trazodone HCl (Trazodone Hcl 25 Mg Halftab) 25 mg PO BEDTIME [facility] Last Admin: 06/16/21 20:50 Dose: 25 mg Documented by: ELIO Labs CBC & Chem 7: 06/12/21 05:12 06/12/21 05:12 Assessment and Plan (1) Dementia with behavioral disturbance: Status: Acute Assessment and Plan: hospital d#20 75 yo M who presented to the ED on 05/23/21 for AMS and failure to thrive. He was initially going to be placed at a facility, but on 05/29 was noted to have cough and a CXR revealed a new R base infiltrate concerning for aspiration pneumonia has completed Abx course and now awaiting placement 1. Dementia (per prior documentation) with behavioral disturbances Continue medications per psych Evaluated by psych -- does not have capacity 2. Aspiration Pneumonia completed treatment with IV and oral meds Diet -- nectar thick and Ground/[facility] alerted 3. Suspected scabies--treated with Permethrin x 2 doses Permethrin, a week apart 4. Stage 2 pressure ucler (L heel / M medial heel) - present on admission 4a. Stage 1 bilateral buttock - present on admission seen by air intercept controller supervisor with following instructions: Woundres Gel for the heel + Foam dressing Barrier cream Continue other usual decub preacutions -- nutrition + air loss bed + nutrition (on supplements), etc Dispo: Placement pending Quality Stroke Does the patient have a stroke diagnosis?: No VTE Prior VTE?: No VTE Risk Level:: Medical - moderate - high VTE Device Contraindication: N/A - Device Ordered VTE Drug Contraindication: N/A - Med Ordered
[2021-06-17 12:00] VITALS: BP 133/73; PULSE 72; RESP 18; TEMP 36.7; O2SAT 95
[2021-06-17 16:00] VITALS: BP 142/68; PULSE 52; RESP 18; TEMP 36.6; O2SAT 98
[2021-06-17 20:00] VITALS: BP 126/60; PULSE 85; RESP 15; TEMP 36.6; O2SAT 98
[2021-06-17] MEDS: OLANZapine 5 MG TABLET PO (20:35)
[2021-06-17] MEDS: traZODone HCL 25 MG HALFTAB PO (20:36)
[2021-06-17 23:13] VITALS: BP 146/67; PULSE 69; RESP 18; TEMP 36.2; O2SAT 98
[2021-06-18] MEDS: Heparin Sodium,Porcine 5,000 UNIT/ML VIAL 5000 UNIT SUBCUT ×2 (05:37→15:35)
[2021-06-18] MEDS: Omeprazole 20 MG CAPSULE.DR PO (05:37)
[2021-06-18 07:17] VITALS: BP 112/53; PULSE 65; RESP 17; TEMP 36.8; O2SAT 97
[2021-06-18] MEDS: Folic Acid 1 MG TABLET PO (08:15)
[2021-06-18] MEDS: Thiamine HCL 100 MG TABLET PO (08:15)
[2021-06-18 11:42] VITALS: BP 113/59; PULSE 61; RESP 18; TEMP 36.7; O2SAT 98
--- NOTE | 2021-06-18 11:45 | P.PNIM_ITS ---
Subjective Subjective Date of Service: 06/18/21 Interval History: no cough no fever Review of Systems Review of Systems: Yes all other systems are reviewed and are negative Physical Exam Vital Signs: Vital Signs: Last Vital Signs Temp 98.0 F 06/18/21 11:42 Pulse 61 06/18/21 11:42 Resp 18 06/18/21 11:42 BP 113/59 L 06/18/21 11:42 Pulse Ox 98 06/18/21 11:42 Body Mass Index 21.1 Gen: in no acute distress HEENT: sclera anicteric, moist mucus membranes Neck: supple Lungs: clear to auscultation bilaterally Heart: regular rate and rhythm, no murmurs Abd: soft, non-tender, non-distended Ext: no edema Skin: warm/well-perfused Neuro: alert and oriented to self and time but not to place Psych: appropriate affect Objective Data Active Medications Folic Acid (Folic Acid 1 Mg Tablet) 1 mg PO DAILY [facility] Last Admin: 06/18/21 08:15 Dose: 1 mg Documented by: GOLDEN Heparin Sodium (Porcine) (Heparin Sodium,Porcine 5,000 Unit/Ml Vial) 5,000 unit SUBCUT Q12H [facility] Last Admin: 06/18/21 05:37 Dose: 5,000 unit Documented by: MELODY Hydroxyzine HCl (Hydroxyzine Hcl 50 Mg/Ml Vial) 25 mg IM Q6H PRN PRN Reason: anxiety/restlessness Last Admin: 06/14/21 23:00 Dose: 25 mg Documented by: Olanzapine (Olanzapine 5 Mg Tablet) 5 mg PO BEDTIME [facility] Last Admin: 06/17/21 20:35 Dose: 5 mg Documented by: ELIO Omeprazole (Omeprazole 20 Mg Capsule.) 20 mg PO DAILY@0630 [facility] Last Admin: 06/18/21 05:37 Dose: 20 mg Documented by: MELODY Pharmacy Consult (Consult Rx Perform Med Rec) 1 each MISCELLANE ONCE PRN PRN Reason: Consult order Sodium Chloride (0.9 % Sodium Chloride Flush 3 Ml Syringe) 3 ml IVFLUSH QSHIFT [facility] Last Admin: 06/18/21 08:17 Dose: Not Given Documented by: GOLDEN Non-Admin Reason: No Access Thiamine HCl (Thiamine Hcl 100 Mg Tablet) 100 mg PO DAILY [facility] Last Admin: 06/18/21 08:15 Dose: 100 mg Documented by: GOLDEN Trazodone HCl (Trazodone Hcl 25 Mg Halftab) 25 mg PO BEDTIME [facility] Last Admin: 06/17/21 20:36 Dose: 25 mg Documented by: ELIO Labs CBC & Chem 7: 06/12/21 05:12 06/12/21 05:12 Assessment and Plan (1) Dementia with behavioral disturbance: Status: Acute Assessment and Plan: hospital d#21 75 yo M who presented to the ED on 05/23/21 for AMS and failure to thrive. He was initially going to be placed at a facility, but on 05/29 was noted to have cough and a CXR revealed a new R base infiltrate concerning for aspiration pneumonia has completed Abx course and now awaiting placement 1. Dementia (per prior documentation) with behavioral disturbances Continue medications per psych Evaluated by psych -- does not have capacity 2. Aspiration Pneumonia completed treatment with IV and oral meds Diet -- nectar thick and Ground/[facility] alerted 3. Suspected scabies--treated with Permethrin x 2 doses Permethrin, a week apart 4. Stage 2 pressure ucler (L heel / M medial heel) - present on admission 4a. Stage 1 bilateral buttock - present on admission seen by choirmaster with following instructions: Woundres Gel for the heel + Foam dressing Barrier cream Continue other usual decub preacutions -- nutrition + air loss bed + nutrition (on supplements), etc Dispo: Placement pending Quality Stroke Does the patient have a stroke diagnosis?: No VTE Prior VTE?: No VTE Risk Level:: Medical - moderate - high VTE Device Contraindication: N/A - Device Ordered VTE Drug Contraindication: N/A - Med Ordered
--- NOTE | 2021-06-18 13:47 | MHC.CLN ---
F/U INTAKE AT MEALS USUALLY 100%. DIET=2 GRAM SODIUM, NDD2, THIN LIQUIDS; SUPPLEMENT ENSURE TID (1050 KCAL, 39 G PROTEIN). WOUNDS: STAGE I BILATERAL BUTTOCKS, STAGE II LEFT HEEL. CONTINUE CURRENT NUTRITION ORDERS. RD TO FOLLOW WEEKLY.
[2021-06-18 16:03] VITALS: BP 145/73; PULSE 53; RESP 18; TEMP 36.1; O2SAT 97
--- NOTE | 2021-06-18 16:16 | MHC.CM.PN ---
nurse case finisher note electronic medical record revfiewed along with case discussed with hospitalist. patient with dementi and behavioral distrubances evaluated by psych and does not have capacity to make decisions, aspiration pna deocumentated on iv and oral feedings stage 2 pressure ulcer l heel/ m medial heel case finisher to continue to follow awaitng guardianships
[2021-06-18 19:42] VITALS: BP 140/70; PULSE 64; RESP 18; TEMP 36.8; O2SAT 97
[2021-06-18] MEDS: traZODone HCL 25 MG HALFTAB PO (20:14)
[2021-06-18] MEDS: OLANZapine 5 MG TABLET PO (20:14)
[2021-06-18 23:20] VITALS: BP 165/77; PULSE 76; RESP 18; TEMP 36.6; O2SAT 97
[2021-06-19] MEDS: Heparin Sodium,Porcine 5,000 UNIT/ML VIAL 5000 UNIT SUBCUT ×2 (03:35→16:33)
[2021-06-19 03:55] VITALS: BP 142/66; PULSE 63; RESP 18; TEMP 36.6; O2SAT 99
[2021-06-19] MEDS: Omeprazole 20 MG CAPSULE.DR PO (06:42)
[2021-06-19 07:26] VITALS: BP 137/72; PULSE 91; RESP 16; TEMP 36.3; O2SAT 98
[2021-06-19] MEDS: Folic Acid 1 MG TABLET PO (09:16)
[2021-06-19] MEDS: Thiamine HCL 100 MG TABLET PO (09:16)
--- NOTE | 2021-06-19 11:22 | P.PNIM_ITS ---
Subjective Subjective Date of Service: 06/19/21 Interval History: No cough No fever No pain Review of Systems Review of Systems: Yes all other systems are reviewed and are negative Physical Exam Vital Signs: Vital Signs: Last Vital Signs Temp 97.3 F 06/19/21 07:26 Pulse 91 06/19/21 07:26 Resp 16 06/19/21 07:26 BP 137/72 06/19/21 07:26 Pulse Ox 98 06/19/21 07:26 Body Mass Index 21.1 Gen: in no acute distress HEENT: sclera anicteric, moist mucus membranes Neck: supple Lungs: clear to auscultation bilaterally Heart: regular rate and rhythm, no murmurs Abd: soft, non-tender, non-distended Ext: no edema Skin: warm/well-perfused Neuro: alert and oriented to self and time but not to place Psych: appropriate affect Objective Data Active Medications Folic Acid (Folic Acid 1 Mg Tablet) 1 mg PO DAILY [facility] Last Admin: 06/19/21 09:16 Dose: 1 mg Documented by: DANITA Heparin Sodium (Porcine) (Heparin Sodium,Porcine 5,000 Unit/Ml Vial) 5,000 unit SUBCUT Q12H [facility] Last Admin: 06/19/21 03:35 Dose: 5,000 unit Documented by: CESAR Hydroxyzine HCl (Hydroxyzine Hcl 50 Mg/Ml Vial) 25 mg IM Q6H PRN PRN Reason: anxiety/restlessness Last Admin: 06/14/21 23:00 Dose: 25 mg Documented by: Olanzapine (Olanzapine 5 Mg Tablet) 5 mg PO BEDTIME [facility] Last Admin: 06/18/21 20:14 Dose: 5 mg Documented by: CESAR Omeprazole (Omeprazole 20 Mg Capsule.) 20 mg PO DAILY@0630 [facility] Last Admin: 06/19/21 06:42 Dose: 20 mg Documented by: CESAR Pharmacy Consult (Consult Rx Perform Med Rec) 1 each MISCELLANE ONCE PRN PRN Reason: Consult order Sodium Chloride (0.9 % Sodium Chloride Flush 3 Ml Syringe) 3 ml IVFLUSH QSHIFT [facility] Last Admin: 06/19/21 08:19 Dose: Not Given Documented by: DANITA Non-Admin Reason: No Access Thiamine HCl (Thiamine Hcl 100 Mg Tablet) 100 mg PO DAILY [facility] Last Admin: 06/19/21 09:16 Dose: 100 mg Documented by: DANITA Trazodone HCl (Trazodone Hcl 25 Mg Halftab) 25 mg PO BEDTIME [facility] Last Admin: 06/18/21 20:14 Dose: 25 mg Documented by: CESAR Labs CBC & Chem 7: 06/12/21 05:12 06/12/21 05:12 Assessment and Plan (1) Aspiration pneumonia: Status: Acute Assessment and Plan: hospital d#22 75 yo M who presented to the ED on 05/23/21 for AMS and failure to thrive. He was initially going to be placed at a facility, but on 05/29 was noted to have cough and a CXR revealed a new R base infiltrate concerning for aspiration pneumonia has completed Abx course and now awaiting placement 1. Dementia (per prior documentation) with behavioral disturbances Continue medications per psych Evaluated by psych -- does not have capacity 2. Aspiration Pneumonia completed treatment with IV and oral meds Diet -- nectar thick and Ground/[facility] alerted 3. Suspected scabies--treated with Permethrin x 2 doses Permethrin, a week apart 4. Stage 2 pressure ucler (L heel / M medial heel) - present on admission 4a. Stage 1 bilateral buttock - present on admission seen by financial underwriter with following instructions: Woundres Gel for the heel + Foam dressing Barrier cream Continue other usual decub preacutions -- nutrition + air loss bed + nutrition (on supplements), etc Dispo: Placement pending Quality Stroke Does the patient have a stroke diagnosis?: No VTE Prior VTE?: No VTE Risk Level:: Medical - moderate - high VTE Device Contraindication: N/A - Device Ordered VTE Drug Contraindication: N/A - Med Ordered
[2021-06-19 11:56] VITALS: BP 114/60; PULSE 68; RESP 16; TEMP 36.2; O2SAT 99
[2021-06-19 15:25] VITALS: BP 142/92; PULSE 89; RESP 16; TEMP 36.6; O2SAT 98
[2021-06-19] MEDS: traZODone HCL 25 MG HALFTAB PO (19:18)
[2021-06-19] MEDS: OLANZapine 5 MG TABLET PO (19:18)
[2021-06-19] MEDS: hydrOXYzine HCL 50 MG/ML VIAL 25 MG IM (19:18)
[2021-06-19 19:25] VITALS: BP 163/85; PULSE 68; RESP 18; TEMP 36.6; O2SAT 98
[2021-06-19 23:45] VITALS: BP 167/82; PULSE 71; RESP 18; TEMP 36.3; O2SAT 99
[2021-06-20] MEDS: hydrOXYzine HCL 50 MG/ML VIAL 25 MG IM (01:33)
[2021-06-20] MEDS: Heparin Sodium,Porcine 5,000 UNIT/ML VIAL 5000 UNIT SUBCUT ×2 (03:47→15:49)
[2021-06-20 05:12] VITALS: BP 165/75; PULSE 69; RESP 18; TEMP 36.7; O2SAT 96
[2021-06-20 08:00] VITALS: BP 127/58; PULSE 70; RESP 20; TEMP 36.4; O2SAT 98
[2021-06-20] MEDS: Folic Acid 1 MG TABLET PO (09:27)
[2021-06-20] MEDS: Thiamine HCL 100 MG TABLET PO (09:27)
--- NOTE | 2021-06-20 10:28 | P.PNIM_ITS ---
Subjective Subjective Date of Service: 06/20/21 Interval History: cc: ams interval history: comfortable Review of Systems Review of Systems: Yes Unobtainable due to mental condition Physical Exam Vital Signs: Vital Signs: Last Vital Signs Temp 97.6 F 06/20/21 08:00 Pulse 70 06/20/21 08:00 Resp 20 06/20/21 08:00 BP 127/58 L 06/20/21 08:00 Pulse Ox 98 06/20/21 08:00 Body Mass Index 21.1 Gen: in no acute distress HEENT: sclera anicteric, moist mucus membranes Neck: supple Lungs: clear to auscultation bilaterally Heart: regular rate and rhythm, no murmurs Abd: soft, non-tender, non-distended Ext: no edema Skin: warm/well-perfused Neuro: alert and oriented to self and time but not to place Psych: appropriate affect Objective Data Active Medications Folic Acid (Folic Acid 1 Mg Tablet) 1 mg PO DAILY [facility] Last Admin: 06/20/21 09:27 Dose: 1 mg Documented by: KELSEY Heparin Sodium (Porcine) (Heparin Sodium,Porcine 5,000 Unit/Ml Vial) 5,000 unit SUBCUT Q12H [facility] Last Admin: 06/20/21 03:47 Dose: 5,000 unit Documented by: GIL Hydroxyzine HCl (Hydroxyzine Hcl 50 Mg/Ml Vial) 25 mg IM Q6H PRN PRN Reason: anxiety/restlessness Last Admin: 06/20/21 01:33 Dose: 25 mg Documented by: GIL Olanzapine (Olanzapine 5 Mg Tablet) 5 mg PO BEDTIME [facility] Last Admin: 06/19/21 19:18 Dose: 5 mg Documented by: GIL Omeprazole (Omeprazole 20 Mg Capsule.Dr) 20 mg PO DAILY@0630 [facility] Last Admin: 06/20/21 06:04 Dose: Not Given Documented by: GIL Non-Admin Reason: pt too drowsy Pharmacy Consult (Consult Rx Perform Med Rec) 1 each MISCELLANE ONCE PRN PRN Reason: Consult order Sodium Chloride (0.9 % Sodium Chloride Flush 3 Ml Syringe) 3 ml IVFLUSH QSHIFT [facility] Last Admin: 06/20/21 09:27 Dose: Not Given Documented by: KELSEY Non-Admin Reason: No Access Thiamine HCl (Thiamine Hcl 100 Mg Tablet) 100 mg PO DAILY [facility] Last Admin: 06/20/21 09:27 Dose: 100 mg Documented by: KELSEY Trazodone HCl (Trazodone Hcl 25 Mg Halftab) 25 mg PO BEDTIME [facility] Last Admin: 06/19/21 19:18 Dose: 25 mg Documented by: GIL Labs CBC & Chem 7: 06/12/21 05:12 06/12/21 05:12 Assessment and Plan (1) Aspiration pneumonia: Status: Acute Assessment and Plan: hospital d#23 75 yo M who presented to the ED on 05/23/21 for AMS and failure to thrive. He was initially going to be placed at a facility, but on 05/29 was noted to have cough and a CXR revealed a new R base infiltrate concerning for aspiration pneumonia has completed Abx course and now awaiting placement Dementia (per prior documentation) with behavioral disturbances Continue medications per psych Evaluated by psych -- does not have capacity Aspiration Pneumonia completed treatment with IV and oral meds Diet -- nectar thick and Ground/[facility] alerted Suspected scabies--treated with Permethrin x 2 doses Permethrin, a week apart Stage 2 pressure ucler (L heel / M medial heel) - present on admission 4a. Stage 1 bilateral buttock - present on admission seen by barrel raiser with following instructions: Woundres Gel for the heel + Foam dressing Barrier cream Continue other usual decub preacutions -- nutrition + air loss bed + nutrition (on supplements), etc Dispo: Placement pending Quality Stroke Does the patient have a stroke diagnosis?: No VTE Prior VTE?: No VTE Risk Level:: Medical - moderate - high VTE Device Contraindication: N/A - Device Ordered VTE Drug Contraindication: N/A - Med Ordered
[2021-06-20 11:25] VITALS: BP 152/74; PULSE 66; RESP 14; TEMP 36.4; O2SAT 96
--- NOTE | 2021-06-20 15:13 | MHC.CM.PN ---
nurse nurse case manager note electronic medical record revfiewed along with case discussed with hospitalist. patient with dementi and behavioral distrubances evaluated by psych and does not have capacity to make decisions, aspiration pna deocumentated on iv and oral feedings stage 2 pressure ulcer l heel/ m medial heel nurse case manager to continue to follow awaitng guardianships case discussed on multiple disciplinary rounds and with case mangement director of counterintelligence manager to continueto follow
[2021-06-20 16:00] VITALS: BP 161/74; PULSE 73; TEMP 36.8; O2SAT 98
[2021-06-20 20:00] VITALS: RESP 17
[2021-06-21] VITALS: RESP 16
[2021-06-21 04:00] VITALS: RESP 16
[2021-06-21] MEDS: Heparin Sodium,Porcine 5,000 UNIT/ML VIAL 5000 UNIT SUBCUT ×2 (05:21→16:18)
[2021-06-21] MEDS: Omeprazole 20 MG CAPSULE.DR PO (05:21)
[2021-06-21 07:49] VITALS: BP 133/58; PULSE 57; RESP 18; TEMP 36.7; O2SAT 98
[2021-06-21] MEDS: Folic Acid 1 MG TABLET PO (09:28)
[2021-06-21] MEDS: Thiamine HCL 100 MG TABLET PO (09:28)
--- NOTE | 2021-06-21 09:49 | HO.PM.IMPN ---
Subjective Subjective Date of Service: 06/21/21 Interval History: cc: ams interval history: comfortable Review of Systems Review of Systems: Yes Unobtainable due to mental condition Physical Exam Vital Signs: Vital Signs: Last Vital Signs Temp 98.1 F 06/21/21 07:49 Pulse 57 06/21/21 07:49 Resp 18 06/21/21 07:49 BP 133/58 L 06/21/21 07:49 Pulse Ox 98 06/21/21 07:49 Body Mass Index 21.1 Gen: in no acute distress HEENT: sclera anicteric, moist mucus membranes Neck: supple Lungs: clear to auscultation bilaterally Heart: regular rate and rhythm, no murmurs Abd: soft, non-tender, non-distended Ext: no edema Skin: warm/well-perfused Neuro: alert and oriented to self and time but not to place Psych: appropriate affect Objective Data Active Medications Folic Acid (Folic Acid 1 Mg Tablet) 1 mg PO DAILY [facility] Last Admin: 06/21/21 09:28 Dose: 1 mg Documented by: GOLDEN Heparin Sodium (Porcine) (Heparin Sodium,Porcine 5,000 Unit/Ml Vial) 5,000 unit SUBCUT Q12H [facility] Last Admin: 06/21/21 05:21 Dose: 5,000 unit Documented by: CLARENCE Hydroxyzine HCl (Hydroxyzine Hcl 50 Mg/Ml Vial) 25 mg IM Q6H PRN PRN Reason: anxiety/restlessness Last Admin: 06/20/21 01:33 Dose: 25 mg Documented by: GIL Olanzapine (Olanzapine 5 Mg Tablet) 5 mg PO BEDTIME [facility] Last Admin: 06/20/21 21:18 Dose: Not Given Documented by: CLARENCE Non-Admin Reason: Patient Refused Omeprazole (Omeprazole 20 Mg Capsule.) 20 mg PO DAILY@0630 [facility] Last Admin: 06/21/21 05:21 Dose: 20 mg Documented by: CLARENCE Pharmacy Consult (Consult Rx Perform Med Rec) 1 each MISCELLANE ONCE PRN PRN Reason: Consult order Sodium Chloride (0.9 % Sodium Chloride Flush 3 Ml Syringe) 3 ml IVFLUSH QSHIFT [facility] Last Admin: 06/21/21 09:28 Dose: Not Given Documented by: GOLDEN Non-Admin Reason: No Access Thiamine HCl (Thiamine Hcl 100 Mg Tablet) 100 mg PO DAILY [facility] Last Admin: 06/21/21 09:28 Dose: 100 mg Documented by: GOLDEN Trazodone HCl (Trazodone Hcl 25 Mg Halftab) 25 mg PO BEDTIME [facility] Last Admin: 06/20/21 21:18 Dose: Not Given Documented by: CLARENCE Non-Admin Reason: Patient Refused Labs CBC & Chem 7: 06/12/21 05:12 06/12/21 05:12 Assessment and Plan (1) Aspiration pneumonia: Status: Acute Assessment and Plan: hospital d#24 75 yo M who presented to the ED on 05/23/21 for AMS and failure to thrive. He was initially going to be placed at a facility, but on 05/29 was noted to have cough and a CXR revealed a new R base infiltrate concerning for aspiration pneumonia has completed Abx course and now awaiting placement Dementia (per prior documentation) with behavioral disturbances Continue medications per psych Evaluated by psych -- does not have capacity Aspiration Pneumonia completed treatment with IV and oral meds Diet -- nectar thick and Ground/mech alerted Suspected scabies--treated with Permethrin x 2 doses Permethrin, a week apart Stage 2 pressure ucler (L heel / M medial heel) - present on admission 4a. Stage 1 bilateral buttock - present on admission seen by professor of english with following instructions: Woundres Gel for the heel + Foam dressing Barrier cream Continue other usual decub preacutions -- nutrition + air loss bed + nutrition (on supplements), etc Dispo: Placement pending Quality Stroke Does the patient have a stroke diagnosis?: No VTE Prior VTE?: No VTE Risk Level:: Medical - moderate - high VTE Device Contraindication: N/A - Device Ordered VTE Drug Contraindication: N/A - Med Ordered
[2021-06-21 15:14] VITALS: BP 135/61; PULSE 73; RESP 16; TEMP 36.5; O2SAT 97
[2021-06-21 19:15] VITALS: BP 128/60; PULSE 78; RESP 16; TEMP 36.6; O2SAT 95
[2021-06-22] VITALS: BP 119/64; PULSE 69; RESP 16; TEMP 36.1; O2SAT 96
[2021-06-22] MEDS: Heparin Sodium,Porcine 5,000 UNIT/ML VIAL 5000 UNIT SUBCUT (05:15)
[2021-06-22] MEDS: Omeprazole 20 MG CAPSULE.DR PO (06:31)
[2021-06-22 07:38] VITALS: BP 138/63; PULSE 52; RESP 17; TEMP 36.7; O2SAT 96
--- NOTE | 2021-06-22 10:18 | MHC.CM.PN ---
nurse care manger note electronic medical record reviewed, per documentation admission with altered mental status failure to thrieve, on 05/29/21 found to have aspiration pneunomia and has completed course of iv abx and is now awaiting jail placement and guardianship from the [facility]
[2021-06-22] MEDS: Thiamine HCL 100 MG TABLET PO (10:23)
[2021-06-22] MEDS: Folic Acid 1 MG TABLET PO (10:23)
--- NOTE | 2021-06-22 10:42 | P.PNIM_ITS ---
Subjective Subjective Date of Service: 06/22/21 Interval History: cc: ams interval history: comfortable Cardiovascular Cardiovascular: Reports no additional cardiovascular complaints Respiratory Respiratory: Reports no additional respiratory complaints Physical Exam Vital Signs: Vital Signs: Last Vital Signs Temp 98.0 F 06/22/21 07:38 Pulse 52 06/22/21 07:38 Resp 17 06/22/21 07:38 BP 138/63 06/22/21 07:38 Pulse Ox 96 06/22/21 07:38 Body Mass Index 21.1 Gen: in no acute distress HEENT: sclera anicteric, moist mucus membranes Neck: supple Lungs: clear to auscultation bilaterally Heart: regular rate and rhythm, no murmurs Abd: soft, non-tender, non-distended Ext: no edema Skin: warm/well-perfused Neuro: alert and oriented to self and time but not to place Psych: appropriate affect Objective Data Active Medications Folic Acid (Folic Acid 1 Mg Tablet) 1 mg PO DAILY [facility] Last Admin: 06/22/21 10:23 Dose: 1 mg Documented by: DANITA Heparin Sodium (Porcine) (Heparin Sodium,Porcine 5,000 Unit/Ml Vial) 5,000 unit SUBCUT Q12H [facility] Last Admin: 06/22/21 05:15 Dose: 5,000 unit Documented by: CLARENCE Hydroxyzine HCl (Hydroxyzine Hcl 50 Mg/Ml Vial) 25 mg IM Q6H PRN PRN Reason: anxiety/restlessness Last Admin: 06/20/21 01:33 Dose: 25 mg Documented by: GIL Olanzapine (Olanzapine 5 Mg Tablet) 5 mg PO BEDTIME [facility] Last Admin: 06/21/21 22:04 Dose: Not Given Documented by: CLARENCE Non-Admin Reason: Patient Asleep Omeprazole (Omeprazole 20 Mg Capsule.) 20 mg PO DAILY@0630 [facility] Last Admin: 06/22/21 06:31 Dose: 20 mg Documented by: CLARENCE Pharmacy Consult (Consult Rx Perform Med Rec) 1 each MISCELLANE ONCE PRN PRN Reason: Consult order Sodium Chloride (0.9 % Sodium Chloride Flush 3 Ml Syringe) 3 ml IVFLUSH QSHIFT [facility] Last Admin: 06/22/21 10:23 Dose: Not Given Documented by: DANITA Non-Admin Reason: No Access Thiamine HCl (Thiamine Hcl 100 Mg Tablet) 100 mg PO DAILY [facility] Last Admin: 06/22/21 10:23 Dose: 100 mg Documented by: DANITA Trazodone HCl (Trazodone Hcl 25 Mg Halftab) 25 mg PO BEDTIME [facility] Last Admin: 06/21/21 22:04 Dose: Not Given Documented by: CLARENCE Non-Admin Reason: Patient Asleep Labs CBC & Chem 7: 06/12/21 05:12 06/12/21 05:12 Assessment and Plan (1) Aspiration pneumonia: Status: Acute Assessment and Plan: hospital d#25 75 yo M who presented to the ED on 05/23/21 for AMS and failure to thrive. He was initially going to be placed at a facility, but on 05/29 was noted to have cough and a CXR revealed a new R base infiltrate concerning for aspiration pneumonia has completed Abx course and now awaiting placement Dementia (per prior documentation) with behavioral disturbances Continue medications per psych Evaluated by psych -- does not have capacity Aspiration Pneumonia completed treatment with IV and oral meds Diet -- nectar thick and Ground/mech alerted Suspected scabies--treated with Permethrin x 2 doses Permethrin, a week apart Stage 2 pressure ucler (L heel / M medial heel) - present on admission 4a. Stage 1 bilateral buttock - present on admission seen by bench grinder with following instructions: Woundres Gel for the heel + Foam dressing Barrier cream Continue other usual decub preacutions -- nutrition + air loss bed + nutrition (on supplements), etc Dispo: Placement pending Quality Stroke Does the patient have a stroke diagnosis?: No VTE Prior VTE?: No VTE Risk Level:: Medical - moderate - high VTE Device Contraindication: N/A - Device Ordered VTE Drug Contraindication: N/A - Med Ordered
[2021-06-22 11:37] VITALS: BP 151/67; PULSE 53; RESP 17; TEMP 36.8; O2SAT 95
[2021-06-22 15:21] VITALS: BP 133/61; PULSE 75; RESP 18; TEMP 36.8; O2SAT 97
--- NOTE | 2021-06-22 16:05 | MHC.CM.PN ---
MOTION FOR SHORT ORDER OF NOTICE SERVED TO PATIENT HE ASKS THAT IT BE PLACED IN HIS CAR. WHEN EXPLAINED THAT CAR IS NOT HERE, HE POINTS TO BED SIDE TABLE, WHERE THIS WRTIER LEFT IT. HEARING IS FOR JUNE 29, 2021 @ 6990. INFO WRITTEN ON WHITE BOARD
[2021-06-22 19:10] VITALS: BP 155/70; PULSE 42; RESP 18; TEMP 36.6
[2021-06-22] MEDS: traZODone HCL 25 MG HALFTAB PO (20:53)
[2021-06-22] MEDS: OLANZapine 5 MG TABLET PO (20:53)
[2021-06-22 23:40] VITALS: BP 135/60; PULSE 69; RESP 18; TEMP 36; O2SAT 95
[2021-06-23 03:55] VITALS: BP 112/53; PULSE 50; RESP 19; TEMP 36.1; O2SAT 98
[2021-06-23] MEDS: Omeprazole 20 MG CAPSULE.DR PO (05:12)
[2021-06-23] MEDS: Heparin Sodium,Porcine 5,000 UNIT/ML VIAL 5000 UNIT SUBCUT (05:12)
[2021-06-23 07:25] VITALS: BP 145/69; PULSE 57; RESP 18; TEMP 35.9; O2SAT 98
[2021-06-23] MEDS: Folic Acid 1 MG TABLET PO (08:54)
[2021-06-23] MEDS: Thiamine HCL 100 MG TABLET PO (08:54)
--- NOTE | 2021-06-23 10:02 | HO.PM.IMPN ---
Subjective Subjective Date of Service: 06/23/21 Interval History: no complaints Cardiovascular Cardiovascular: Reports no additional cardiovascular complaints Respiratory Respiratory: Reports no additional respiratory complaints Physical Exam Vital Signs: Vital Signs: Last Vital Signs Temp 96.6 F L 06/23/21 07:25 Pulse 57 06/23/21 07:25 Resp 18 06/23/21 07:25 BP 145/69 H 06/23/21 07:25 Pulse Ox 98 06/23/21 07:25 Body Mass Index 21.1 Gen: in no acute distress HEENT: sclera anicteric, moist mucus membranes Neck: supple Lungs: clear to auscultation bilaterally Heart: regular rate and rhythm, no murmurs Abd: soft, non-tender, non-distended Ext: no edema Skin: warm/well-perfused Neuro: alert and oriented to self and time but not to place Psych: appropriate affect Objective Data Active Medications Folic Acid (Folic Acid 1 Mg Tablet) 1 mg PO DAILY [facility] Last Admin: 06/23/21 08:54 Dose: 1 mg Documented by: CHARLES Heparin Sodium (Porcine) (Heparin Sodium,Porcine 5,000 Unit/Ml Vial) 5,000 unit SUBCUT Q12H [facility] Last Admin: 06/23/21 05:12 Dose: 5,000 unit Documented by: SYLVIA Hydroxyzine HCl (Hydroxyzine Hcl 50 Mg/Ml Vial) 25 mg IM Q6H PRN PRN Reason: anxiety/restlessness Last Admin: 06/20/21 01:33 Dose: 25 mg Documented by: GIL Olanzapine (Olanzapine 5 Mg Tablet) 5 mg PO BEDTIME [facility] Last Admin: 06/22/21 20:53 Dose: 5 mg Documented by: SYLVIA Omeprazole (Omeprazole 20 Mg Capsule.) 20 mg PO DAILY@0630 [facility] Last Admin: 06/23/21 05:12 Dose: 20 mg Documented by: SYLVIA Pharmacy Consult (Consult Rx Perform Med Rec) 1 each MISCELLANE ONCE PRN PRN Reason: Consult order Sodium Chloride (0.9 % Sodium Chloride Flush 3 Ml Syringe) 3 ml IVFLUSH QSHIFT [facility] Last Admin: 06/23/21 07:21 Dose: Not Given Documented by: CHARLES Non-Admin Reason: No Access Thiamine HCl (Thiamine Hcl 100 Mg Tablet) 100 mg PO DAILY [facility] Last Admin: 06/23/21 08:54 Dose: 100 mg Documented by: CHARLES Trazodone HCl (Trazodone Hcl 25 Mg Halftab) 25 mg PO BEDTIME [facility] Last Admin: 06/22/21 20:53 Dose: 25 mg Documented by: SYLVIA Labs CBC & Chem 7: 06/12/21 05:12 06/12/21 05:12 Assessment and Plan (1) Aspiration pneumonia: Status: Acute Assessment and Plan: hospital d#26 75 yo M who presented to the ED on 05/23/21 for AMS and failure to thrive. He was initially going to be placed at a facility, but on 05/29 was noted to have cough and a CXR revealed a new R base infiltrate concerning for aspiration pneumonia has completed Abx course and now awaiting placement Dementia (per prior documentation) with behavioral disturbances Continue medications per psych Evaluated by psych -- does not have capacity Aspiration Pneumonia completed treatment with IV and oral meds Diet -- [facility] Suspected scabies--treated with Permethrin x 2 doses Permethrin, a week apart Stage 2 pressure ucler (L heel / M medial heel) - present on admission 4a. Stage 1 bilateral buttock - present on admission seen by manager college with following instructions: Woundres Gel for the heel + Foam dressing Barrier cream Continue other usual decub preacutions -- nutrition + air loss bed + nutrition (on supplements), etc Dispo: Placement pending, guardianship for jun 29, 2021 Quality Stroke Does the patient have a stroke diagnosis?: No VTE Prior VTE?: No VTE Risk Level:: Medical - moderate - high VTE Device Contraindication: N/A - Device Ordered VTE Drug Contraindication: N/A - Med Ordered
[2021-06-23 12:00] VITALS: BP 129/55; PULSE 96; RESP 18; TEMP 36.3
[2021-06-23] MEDS: Acetaminophen 325 MG TABLET 650 MG PO (13:39)
[2021-06-23 15:38] VITALS: BP 116/65; PULSE 69; RESP 16; TEMP 36.8; O2SAT 97
[2021-06-23 20:00] VITALS: BP 141/67; PULSE 61; RESP 16; TEMP 36.3; O2SAT 98
[2021-06-23] MEDS: OLANZapine 5 MG TABLET PO (20:45)
[2021-06-23] MEDS: traZODone HCL 25 MG HALFTAB PO (20:45)
[2021-06-24] VITALS: BP 116/57; PULSE 60; RESP 16; TEMP 36; O2SAT 99
[2021-06-24] MEDS: hydrOXYzine HCL 50 MG/ML VIAL 25 MG IM (04:26)
[2021-06-24 07:15] VITALS: BP 133/63; PULSE 67; RESP 18; TEMP 36.4; O2SAT 97
--- NOTE | 2021-06-24 08:22 | HO.PM.IMPN ---
Subjective Subjective Date of Service: 06/24/21 Interval History: no complaints Cardiovascular Cardiovascular: Reports no additional cardiovascular complaints Respiratory Respiratory: Reports no additional respiratory complaints Physical Exam Vital Signs: Vital Signs: Last Vital Signs Temp 97.5 F 06/24/21 07:15 Pulse 67 06/24/21 07:15 Resp 18 06/24/21 07:15 BP 133/63 06/24/21 07:15 Pulse Ox 97 06/24/21 07:15 Body Mass Index 21.1 Gen: in no acute distress HEENT: sclera anicteric, moist mucus membranes Neck: supple Lungs: clear to auscultation bilaterally Heart: regular rate and rhythm, no murmurs Abd: soft, non-tender, non-distended Ext: no edema Skin: warm/well-perfused Neuro: alert and oriented to self and time but not to place Psych: appropriate affect Objective Data Active Medications Acetaminophen (Acetaminophen 325 Mg Tablet) 650 mg PO Q4H PRN PRN Reason: mild pain Last Admin: 06/23/21 13:39 Dose: 650 mg Documented by: CHARLES Folic Acid (Folic Acid 1 Mg Tablet) 1 mg PO DAILY [facility] Last Admin: 06/23/21 08:54 Dose: 1 mg Documented by: CHARLES Heparin Sodium (Porcine) (Heparin Sodium,Porcine 5,000 Unit/Ml Vial) 5,000 unit SUBCUT Q12H [facility] Last Admin: 06/24/21 03:26 Dose: Not Given Documented by: ARELY Non-Admin Reason: Patient Refused Hydroxyzine HCl (Hydroxyzine Hcl 50 Mg/Ml Vial) 25 mg IM Q6H PRN PRN Reason: anxiety/restlessness Last Admin: 06/24/21 04:26 Dose: 25 mg Documented by: ARELY Olanzapine (Olanzapine 5 Mg Tablet) 5 mg PO BEDTIME [facility] Last Admin: 06/23/21 20:45 Dose: 5 mg Documented by: ARELY Omeprazole (Omeprazole 20 Mg Capsule.Dr) 20 mg PO DAILY@0630 [facility] Last Admin: 06/24/21 06:18 Dose: Not Given Documented by: ARELY Non-Admin Reason: Patient Refused Pharmacy Consult (Consult Rx Perform Med Rec) 1 each MISCELLANE ONCE PRN PRN Reason: Consult order Sodium Chloride (0.9 % Sodium Chloride Flush 3 Ml Syringe) 3 ml IVFLUSH QSHIFT [facility] Last Admin: 06/24/21 07:18 Dose: Not Given Documented by: CHARLES Non-Admin Reason: No Access Thiamine HCl (Thiamine Hcl 100 Mg Tablet) 100 mg PO DAILY [facility] Last Admin: 06/23/21 08:54 Dose: 100 mg Documented by: CHARLES Trazodone HCl (Trazodone Hcl 25 Mg Halftab) 25 mg PO BEDTIME [facility] Last Admin: 06/23/21 20:45 Dose: 25 mg Documented by: ODRISM Labs CBC & Chem 7: 06/12/21 05:12 06/12/21 05:12 Assessment and Plan (1) Aspiration pneumonia: Status: Acute Assessment and Plan: hospital d#27 75 yo M who presented to the ED on 05/23/21 for AMS and failure to thrive. He was initially going to be placed at a facility, but on 05/29 was noted to have cough and a CXR revealed a new R base infiltrate concerning for aspiration pneumonia has completed Abx course and now awaiting placement Dementia (per prior documentation) with behavioral disturbances Continue medications per psych Evaluated by psych -- does not have capacity Aspiration Pneumonia completed treatment with IV and oral meds Diet -- nectar thick and Ground/mech alerted Suspected scabies--treated with Permethrin x 2 doses Permethrin, a week apart Stage 2 pressure ucler (L heel / M medial heel) - present on admission 4a. Stage 1 bilateral buttock - present on admission seen by street light repairer with following instructions: Woundres Gel for the heel + Foam dressing Barrier cream Continue other usual decub preacutions -- nutrition + air loss bed + nutrition (on supplements), etc Dispo: Placement pending, guardianship for jun 29, 2021 Quality Stroke Does the patient have a stroke diagnosis?: No VTE Prior VTE?: No VTE Risk Level:: Medical - moderate - high VTE Device Contraindication: N/A - Device Ordered VTE Drug Contraindication: N/A - Med Ordered
[2021-06-24] MEDS: Heparin Sodium,Porcine 5,000 UNIT/ML VIAL 5000 UNIT SUBCUT ×2 (10:23→20:11)
[2021-06-24] MEDS: Folic Acid 1 MG TABLET PO (10:23)
[2021-06-24] MEDS: Thiamine HCL 100 MG TABLET PO (10:23)
[2021-06-24 12:00] VITALS: BP 115/63; PULSE 66; RESP 18; TEMP 36.4; O2SAT 98
[2021-06-24 15:33] VITALS: BP 100/58; PULSE 69; RESP 16; TEMP 36.2; O2SAT 94
[2021-06-24 19:12] VITALS: BP 143/63; PULSE 66; RESP 16; TEMP 36.3; O2SAT 96
[2021-06-24] MEDS: OLANZapine 5 MG TABLET PO (22:03)
[2021-06-24] MEDS: traZODone HCL 25 MG HALFTAB PO (22:03)
[2021-06-24 23:25] VITALS: BP 130/64; PULSE 65; RESP 17; TEMP 36.1; O2SAT 95
[2021-06-25 03:40] VITALS: BP 113/57; PULSE 70; RESP 17; TEMP 36.6; O2SAT 97
[2021-06-25 07:17] VITALS: BP 125/69; PULSE 59; RESP 18; TEMP 36.3; O2SAT 97
[2021-06-25] MEDS: Omeprazole 20 MG CAPSULE.DR PO (07:37)
[2021-06-25] MEDS: Heparin Sodium,Porcine 5,000 UNIT/ML VIAL 5000 UNIT SUBCUT ×2 (07:46→19:15)
[2021-06-25] MEDS: Thiamine HCL 100 MG TABLET PO (07:46)
[2021-06-25] MEDS: Folic Acid 1 MG TABLET PO (07:47)
--- NOTE | 2021-06-25 10:38 | P.PNIM_ITS ---
Subjective Subjective Date of Service: 06/25/21 Interval History: no complaints Cardiovascular Cardiovascular: Reports no additional cardiovascular complaints Respiratory Respiratory: Reports no additional respiratory complaints Physical Exam Vital Signs: Vital Signs: Last Vital Signs Temp 97.3 F 06/25/21 07:17 Pulse 59 06/25/21 07:17 Resp 18 06/25/21 07:17 BP 125/69 06/25/21 07:17 Pulse Ox 97 06/25/21 07:17 Body Mass Index 21.1 gen: in no acute distress HEENT: sclera anicteric, moist mucus membranes Neck: supple Lungs: clear to auscultation bilaterally Heart: regular rate and rhythm, no murmurs Abd: soft, non-tender, non-distended Ext: no edema Skin: warm/well-perfused Neuro: alert and oriented to self and time but not to place Psych: appropriate affect Objective Data Active Medications Acetaminophen (Acetaminophen 325 Mg Tablet) 650 mg PO Q4H PRN PRN Reason: mild pain Last Admin: 06/23/21 13:39 Dose: 650 mg Documented by: CHARLES Folic Acid (Folic Acid 1 Mg Tablet) 1 mg PO DAILY [facility] Last Admin: 06/25/21 07:47 Dose: 1 mg Documented by: JODI Heparin Sodium (Porcine) (Heparin Sodium,Porcine 5,000 Unit/Ml Vial) 5,000 unit SUBCUT Q12H [facility] Last Admin: 06/25/21 07:46 Dose: 5,000 unit Documented by: JODI Hydroxyzine HCl (Hydroxyzine Hcl 50 Mg/Ml Vial) 25 mg IM Q6H PRN PRN Reason: anxiety/restlessness Last Admin: 06/24/21 04:26 Dose: 25 mg Documented by: ARELY Olanzapine (Olanzapine 5 Mg Tablet) 5 mg PO BEDTIME [facility] Last Admin: 06/24/21 22:03 Dose: 5 mg Documented by: CLARENCE Omeprazole (Omeprazole 20 Mg Capsule.) 20 mg PO DAILY@0630 [facility] Last Admin: 06/25/21 07:37 Dose: 20 mg Documented by: JODI Pharmacy Consult (Consult Rx Perform Med Rec) 1 each MISCELLANE ONCE PRN PRN Reason: Consult order Sodium Chloride (0.9 % Sodium Chloride Flush 3 Ml Syringe) 3 ml IVFLUSH QSHIFT [facility] Last Admin: 06/25/21 08:48 Dose: Not Given Documented by: DANITA Non-Admin Reason: No Access Thiamine HCl (Thiamine Hcl 100 Mg Tablet) 100 mg PO DAILY [facility] Last Admin: 06/25/21 07:46 Dose: 100 mg Documented by: JODI Trazodone HCl (Trazodone Hcl 25 Mg Halftab) 25 mg PO BEDTIME [facility] Last Admin: 06/24/21 22:03 Dose: 25 mg Documented by: CLARENCE Labs CBC & Chem 7: 06/12/21 05:12 06/12/21 05:12 Assessment and Plan (1) Aspiration pneumonia: Status: Acute Assessment and Plan: hospital d#28 75 yo M who presented to the ED on 05/23/21 for AMS and failure to thrive. He was initially going to be placed at a facility, but on 05/29 was noted to have cough and a CXR revealed a new R base infiltrate concerning for aspiration pneumonia has completed Abx course and now awaiting placement Dementia (per prior documentation) with behavioral disturbances Continue medications per psych Evaluated by psych -- does not have capacity Aspiration Pneumonia completed treatment with IV and oral meds Diet -- nectar thick and Ground/mech alerted Suspected scabies--treated with Permethrin x 2 doses Permethrin, a week apart Stage 2 pressure ucler (L heel / M medial heel) - present on admission 4a. Stage 1 bilateral buttock - present on admission seen by fuel cell test engineer with following instructions: Woundres Gel for the heel + Foam dressing Barrier cream Continue other usual decub preacutions -- nutrition + air loss bed + nutrition (on supplements), etc Dispo: Placement pending, guardianship for jun 29, 2021 Quality Stroke Does the patient have a stroke diagnosis?: No VTE Prior VTE?: No VTE Risk Level:: Medical - moderate - high VTE Device Contraindication: N/A - Device Ordered VTE Drug Contraindication: N/A - Med Ordered
[2021-06-25 11:35] VITALS: BP 118/59; PULSE 63; RESP 16; TEMP 36.3; O2SAT 97
--- NOTE | 2021-06-25 14:56 | MHC.CLN ---
F/U INTAKE AT MEALS USUALLY 75-100%. DIET=2 GRAM SODIUM, NDD2, THIN LIQUIDS; SUPPLEMENT ENSURE TID (1050 KCAL, 39 G PROTEIN). WOUNDS: STAGE I BILATERAL BUTTOCKS, STAGE II LEFT HEEL. CONTINUE CURRENT NUTRITION ORDERS. RD TO FOLLOW WEEKLY.
[2021-06-25 16:00] VITALS: BP 130/61; PULSE 76; RESP 18; TEMP 36.8; O2SAT 97
[2021-06-25 19:08] VITALS: BP 122/56; PULSE 52; RESP 18; TEMP 36.5; O2SAT 97
[2021-06-25] MEDS: traZODone HCL 25 MG HALFTAB PO (19:15)
[2021-06-25] MEDS: OLANZapine 5 MG TABLET PO (19:15)
[2021-06-25 23:33] VITALS: BP 142/65; PULSE 52; RESP 17; TEMP 36.4; O2SAT 99
[2021-06-26 03:55] VITALS: BP 105/63; PULSE 84; RESP 17; TEMP 36.4; O2SAT 95
[2021-06-26] MEDS: Omeprazole 20 MG CAPSULE.DR PO (05:26)
[2021-06-26 07:48] VITALS: BP 159/7; PULSE 42; RESP 18; TEMP 36.3; O2SAT 98
--- NOTE | 2021-06-26 09:04 | P.PNIM_ITS ---
Subjective Subjective Date of Service: 06/26/21 Interval History: no complaints Cardiovascular Cardiovascular: Reports no additional cardiovascular complaints Respiratory Respiratory: Reports no additional respiratory complaints Physical Exam Vital Signs: Vital Signs: Last Vital Signs Temp 97.3 F 06/26/21 07:48 Pulse 42 L 06/26/21 07:48 Resp 18 06/26/21 07:48 BP 159/7 H 06/26/21 07:48 Pulse Ox 98 06/26/21 07:48 Body Mass Index 21.1 gen: in no acute distress HEENT: sclera anicteric, moist mucus membranes Neck: supple Lungs: clear to auscultation bilaterally Heart: regular rate and rhythm, no murmurs Abd: soft, non-tender, non-distended Ext: no edema Skin: warm/well-perfused Neuro: alert and oriented to self and time but not to place Psych: appropriate affect Objective Data Active Medications Acetaminophen (Acetaminophen 325 Mg Tablet) 650 mg PO Q4H PRN PRN Reason: mild pain Last Admin: 06/23/21 13:39 Dose: 650 mg Documented by: CHARLES Folic Acid (Folic Acid 1 Mg Tablet) 1 mg PO DAILY [facility] Last Admin: 06/25/21 07:47 Dose: 1 mg Documented by: ANA-MARLIN Heparin Sodium (Porcine) (Heparin Sodium,Porcine 5,000 Unit/Ml Vial) 5,000 unit SUBCUT Q12H [facility] Last Admin: 06/25/21 19:15 Dose: 5,000 unit Documented by: SYLVIA Hydroxyzine HCl (Hydroxyzine Hcl 50 Mg/Ml Vial) 25 mg IM Q6H PRN PRN Reason: anxiety/restlessness Last Admin: 06/24/21 04:26 Dose: 25 mg Documented by: LUCIANARISFarhan Olanzapine (Olanzapine 5 Mg Tablet) 5 mg PO BEDTIME [facility] Last Admin: 06/25/21 19:15 Dose: 5 mg Documented by: SYLVIA Omeprazole (Omeprazole 20 Mg Capsule.) 20 mg PO DAILY@0630 [facility] Last Admin: 06/26/21 05:26 Dose: 20 mg Documented by: SYLVIA Pharmacy Consult (Consult Rx Perform Med Rec) 1 each MISCELLANE ONCE PRN PRN Reason: Consult order Sodium Chloride (0.9 % Sodium Chloride Flush 3 Ml Syringe) 3 ml IVFLUSH QSHIFT [facility] Last Admin: 06/26/21 00:18 Dose: Not Given Documented by: SYLVIA Non-Admin Reason: No Access Thiamine HCl (Thiamine Hcl 100 Mg Tablet) 100 mg PO DAILY [facility] Last Admin: 06/25/21 07:46 Dose: 100 mg Documented by: JODI Trazodone HCl (Trazodone Hcl 25 Mg Halftab) 25 mg PO BEDTIME [facility] Last Admin: 06/25/21 19:15 Dose: 25 mg Documented by: SYLVIA Labs CBC & Chem 7: 06/12/21 05:12 06/12/21 05:12 Assessment and Plan (1) Aspiration pneumonia: Status: Acute Assessment and Plan: hospital d#29 75 yo M who presented to the ED on 05/23/21 for AMS and failure to thrive. He was initially going to be placed at a facility, but on 05/29 was noted to have cough and a CXR revealed a new R base infiltrate concerning for aspiration pneum onia has completed Abx course and now awaiting placement Dementia (per prior documentation) with behavioral disturbances Continue medications per psych Evaluated by psych -- does not have capacity Aspiration Pneumonia completed treatment with IV and oral meds Diet -- nectar thick and Ground/mech alerted Suspected scabies--treated with Permethrin x 2 doses Stage 2 pressure ucler (L heel / M medial heel) - present on admission 4a. Stage 1 bilateral buttock - present on admission seen by co founder & ceo with following instructions: Woundres Gel for the heel + Foam dressing Barrier cream Continue other usual decub preacutions -- nutrition + air loss bed + nutrition (on supplements), etc Dispo: Placement pending, guardianship for jun 29, 2021 Quality Stroke Does the patient have a stroke diagnosis?: No VTE Prior VTE?: No VTE Risk Level:: Medical - moderate - high VTE Device Contraindication: N/A - Device Ordered VTE Drug Contraindication: N/A - Med Ordered
[2021-06-26] MEDS: Heparin Sodium,Porcine 5,000 UNIT/ML VIAL 5000 UNIT SUBCUT ×2 (09:37→20:28)
[2021-06-26] MEDS: Folic Acid 1 MG TABLET PO (09:37)
[2021-06-26] MEDS: Thiamine HCL 100 MG TABLET PO (09:38)
[2021-06-26 11:47] VITALS: BP 113/58; PULSE 56; RESP 18; TEMP 36.2; O2SAT 97
--- NOTE | 2021-06-26 12:12 | MHC.CM.PN ---
PER CONVERSATION WITH ATTY. SACHIN PEREZ, PLAN IS FOR SNF SEARCH IN [facility] WITH A PREFERENCE FOR PATIENT AND SPOUSE TO BE PLACED TOGETHER. SNF BROAD SEARCH ALREADY STATRTED BY PREVIOUS CHANNEL WORKER. INITIAL ATTEMPTS WILL BE FOCUSED ON [facility] [place], AND [facility] [place].
--- NOTE | 2021-06-26 12:52 | MHC.CM.PN ---
PHYSICIST SOLID STATE FOR PATIENT, DUANE (LAST NAME?) SPOKE WITH PATIENT TODAY WITH PATIENT'S PERMISSION. CALL WAS MADE TO [phone] FROM PATIENT'S ROOM. DUANE REPRESENTS PATIENT IN THE GUARDIANSHIP MATTER AND REPORTS THAT HE HAS NO OBJECTION TO GUARDIANSHIP ATTEMPTS AFTER SPEAKING WITH PATIENT. RN AWARE OF THE CONVERSATION.
[2021-06-26] MEDS: Permethrin 1 % Lotion 59 ML BTL 1 APPL TOPICAL (13:42)
[2021-06-26 15:26] VITALS: BP 111/57; PULSE 57; RESP 17; TEMP 36.4; O2SAT 96
[2021-06-26] MEDS: Permethrin 5 % Cream 60 GM TUBE 1 APPL TOPICAL (18:00)
[2021-06-26 19:56] VITALS: BP 148/72; PULSE 62; RESP 17; TEMP 36.2; O2SAT 99
[2021-06-26] MEDS: traZODone HCL 25 MG HALFTAB PO (20:28)
[2021-06-26] MEDS: OLANZapine 5 MG TABLET PO (20:28)
[2021-06-27] MEDS: Omeprazole 20 MG CAPSULE.DR PO (06:01)
--- NOTE | 2021-06-27 06:06 | PC.NURSE ---
left heel - applied WounDres Gel and foam dressing as ordered.
[2021-06-27 06:34] VITALS: BP 156/70; PULSE 58; RESP 18; TEMP 36.7; O2SAT 97
[2021-06-27 07:35] VITALS: BP 131/61; PULSE 58; RESP 18; TEMP 36.3; O2SAT 95
[2021-06-27] MEDS: Folic Acid 1 MG TABLET PO (09:52)
[2021-06-27] MEDS: Thiamine HCL 100 MG TABLET PO (09:52)
[2021-06-27] MEDS: Heparin Sodium,Porcine 5,000 UNIT/ML VIAL 5000 UNIT SUBCUT ×2 (09:53→20:30)
--- NOTE | 2021-06-27 10:19 | MHC.IC ---
DISCUSSED WITH RN. PT HAS BEEN TREATED FOR SCABIES. RASH IMPROVED AND DISSIPATING. OK TO DISCONTINUE ISOLATION
--- NOTE | 2021-06-27 11:20 | HO.PM.IMPN ---
Subjective Subjective Date of Service: 06/27/21 Interval History: the patient was seen and evaluated this morning Laying in bed, feels comfortable as he eating his breakfast Denies any fever, chills or shortness of breath No reported other overnight events. Systemic review: No fever, chills or weakness No chest pain, palpitation No shortness of breath or coughing No abdominal pain, nausea or vomiting No urinary symptoms No any rash or wounds Physical Exam Vital Signs: Vital Signs: Last Vital Signs Temp 97.4 F 06/27/21 07:35 Pulse 58 06/27/21 07:35 Resp 18 06/27/21 07:35 BP 131/61 06/27/21 07:35 Pulse Ox 95 06/27/21 07:35 BMI result Body Mass Index 21.1 Const: Other: Constitutional : Alert, disoriented, not in distress Neck : Normal inspection, Supple Cardiovascular : RRR, S1 S2, no lower extremity edema Respiratory : Good bilateral air entry, no crackles, wheezes or rhonchi Gastrointestinal: soft, lax, Normal bowel sounds, Non tender Skin : Warm, Dry Neurological : Alert & disoriented, No focal deficit Objective Data Active Medications Acetaminophen (Acetaminophen 325 Mg Tablet) 650 mg PO Q4H PRN PRN Reason: mild pain Last Admin: 06/23/21 13:39 Dose: 650 mg Documented by: CHARLES Folic Acid (Folic Acid 1 Mg Tablet) 1 mg PO DAILY [facility] Last Admin: 06/27/21 09:52 Dose: 1 mg Documented by: SCOTT Heparin Sodium (Porcine) (Heparin Sodium,Porcine 5,000 Unit/Ml Vial) 5,000 unit SUBCUT Q12H [facility] Last Admin: 06/27/21 09:53 Dose: 5,000 unit Documented by: SCOTT Hydroxyzine HCl (Hydroxyzine Hcl 50 Mg/Ml Vial) 25 mg IM Q6H PRN PRN Reason: anxiety/restlessness Last Admin: 06/24/21 04:26 Dose: 25 mg Documented by: ARELY Olanzapine (Olanzapine 5 Mg Tablet) 5 mg PO BEDTIME [facility] Last Admin: 06/26/21 20:28 Dose: 5 mg Documented by: ZAIRE Omeprazole (Omeprazole 20 Mg Capsule.) 20 mg PO DAILY@0630 [facility] Last Admin: 06/27/21 06:01 Dose: 20 mg Documented by: ZAIRE Pharmacy Consult (Consult Rx Perform Med Rec) 1 each MISCELLANE ONCE PRN PRN Reason: Consult order Sodium Chloride (0.9 % Sodium Chloride Flush 3 Ml Syringe) 3 ml IVFLUSH QSHIFT [facility] Last Admin: 06/27/21 09:52 Dose: Not Given Documented by: SCOTT Non-Admin Reason: No Access Thiamine HCl (Thiamine Hcl 100 Mg Tablet) 100 mg PO DAILY [facility] Last Admin: 06/27/21 09:52 Dose: 100 mg Documented by: SCOTT Trazodone HCl (Trazodone Hcl 25 Mg Halftab) 25 mg PO BEDTIME [facility] Last Admin: 06/26/21 20:28 Dose: 25 mg Documented by: ZAIRE Labs CBC & Chem 7: 06/12/21 05:12 06/12/21 05:12 Assessment and Plan (1) Aspiration pneumonia: Status: Acute (2) Dementia with behavioral disturbance: Status: Acute Assessment and Plan: hospital d#30 75 yo M who presented to the ED on 05/23/21 for AMS and failure to thrive. He was initially going to be placed at a facility, but on 05/29 was noted to have cough and a CXR revealed a new R base infiltrate concerning for aspiration pneumonia has completed Abx course and now awaiting placement Dementia with behavioral disturbances Alert and interactive Continue medications per psych Evaluated by psych -- does not have capacity Aspiration Pneumonia completed treatment with IV and oral meds Diet -- nectar thick and Ground/mech alerted Suspected scabies treated with Permethrin x 2 doses Stage 2 pressure ucler (L heel / M medial heel) - present on admission Stage 1 bilateral buttock - present on admission seen by programming internship with following instructions: Woundres Gel for the heel + Foam dressing Barrier cream Continue other usual decub preacutions -- nutrition + air loss bed + nutrition (on supplements), etc Dispo: Placement pending, guardianship for jun 29, 2021 Quality Stroke Does the patient have a stroke diagnosis?: No VTE Prior VTE?: No VTE Risk Level:: Medical - moderate - high VTE Device Contraindication: N/A - Device Ordered VTE Drug Contraindication: N/A - Med Ordered
[2021-06-27 11:29] VITALS: BP 115/53; PULSE 67; RESP 18; TEMP 36.6; O2SAT 94
[2021-06-27 15:37] VITALS: BP 109/52; PULSE 64; RESP 16; TEMP 36.9; O2SAT 96
[2021-06-27 19:51] VITALS: BP 142/65; PULSE 60; RESP 17; TEMP 37; O2SAT 95
[2021-06-27] MEDS: OLANZapine 5 MG TABLET PO (20:30)
[2021-06-27] MEDS: traZODone HCL 25 MG HALFTAB PO (20:30)
[2021-06-27 23:11] VITALS: BP 120/55; PULSE 55; RESP 15; TEMP 36.6; O2SAT 98
[2021-06-28 04:00] VITALS: BP 132/58; PULSE 79; RESP 17; TEMP 36.9; O2SAT 98
[2021-06-28] MEDS: Omeprazole 20 MG CAPSULE.DR PO (05:27)
[2021-06-28 07:29] VITALS: BP 123/69; PULSE 62; RESP 18; TEMP 36.7; O2SAT 97
--- NOTE | 2021-06-28 09:22 | HO.PM.IMPN ---
Subjective Subjective Date of Service: 06/28/21 Interval History: the patient was seen and evaluated this morning Laying in bed, feels comfortable Denies any fever, chills or shortness of breath No reported other overnight events. Systemic review: No fever, chills or weakness No chest pain, palpitation No shortness of breath or coughing No abdominal pain, nausea or vomiting No urinary symptoms No any rash or wounds Physical Exam Vital Signs: Vital Signs: Last Vital Signs Temp 98.1 F 06/28/21 07:29 Pulse 62 06/28/21 07:29 Resp 18 06/28/21 07:29 BP 123/69 06/28/21 07:29 Pulse Ox 97 06/28/21 07:29 BMI result Body Mass Index 21.1 Const: Other: Constitutional : Alert, disoriented, not in distress Neck : Normal inspection, Supple Cardiovascular : RRR, S1 S2, no lower extremity edema Respiratory : Good bilateral air entry, no crackles, wheezes or rhonchi Gastrointestinal: soft, lax, Normal bowel sounds, Non tender Skin : Warm, Dry Neurological : Alert & disoriented, No focal deficit Objective Data Active Medications Acetaminophen (Acetaminophen 325 Mg Tablet) 650 mg PO Q4H PRN PRN Reason: mild pain Last Admin: 06/23/21 13:39 Dose: 650 mg Documented by: CHARLES Folic Acid (Folic Acid 1 Mg Tablet) 1 mg PO DAILY [facility] Last Admin: 06/27/21 09:52 Dose: 1 mg Documented by: SCOTT Heparin Sodium (Porcine) (Heparin Sodium,Porcine 5,000 Unit/Ml Vial) 5,000 unit SUBCUT Q12H [facility] Last Admin: 06/27/21 20:30 Dose: 5,000 unit Documented by: ZAIRE Hydroxyzine HCl (Hydroxyzine Hcl 50 Mg/Ml Vial) 25 mg IM Q6H PRN PRN Reason: anxiety/restlessness Last Admin: 06/24/21 04:26 Dose: 25 mg Documented by: ARELY Olanzapine (Olanzapine 5 Mg Tablet) 5 mg PO BEDTIME [facility] Last Admin: 06/27/21 20:30 Dose: 5 mg Documented by: ZAIRE Omeprazole (Omeprazole 20 Mg Capsule.) 20 mg PO DAILY@0630 [facility] Last Admin: 06/28/21 05:27 Dose: 20 mg Documented by: ZAIRE Pharmacy Consult (Consult Rx Perform Med Rec) 1 each MISCELLANE ONCE PRN PRN Reason: Consult order Sodium Chloride (0.9 % Sodium Chloride Flush 3 Ml Syringe) 3 ml IVFLUSH QSHIFT [facility] Last Admin: 06/28/21 00:18 Dose: Not Given Documented by: ZAIRE Non-Admin Reason: No Access Thiamine HCl (Thiamine Hcl 100 Mg Tablet) 100 mg PO DAILY [facility] Last Admin: 06/27/21 09:52 Dose: 100 mg Documented by: SCOTT Trazodone HCl (Trazodone Hcl 25 Mg Halftab) 25 mg PO BEDTIME [facility] Last Admin: 06/27/21 20:30 Dose: 25 mg Documented by: ZAIRE Labs CBC & Chem 7: 06/12/21 05:12 06/12/21 05:12 Assessment and Plan (1) Aspiration pneumonia: Status: Acute (2) Adult failure to thrive: Status: Acute (3) Dementia with behavioral disturbance: Status: Acute Assessment and Plan: hospital d#31 75 yo M who presented to the ED on 05/23/21 for AMS and failure to thrive. He was initially going to be placed at a facility, but on 05/29 was noted to have cough and a CXR revealed a new R base infiltrate concerning for aspiration pneumonia has completed Abx course and now awaiting placement Dementia with behavioral disturbances Alert and interactive Continue medications per psych Evaluated by psych -- does not have capacity Aspiration Pneumonia completed treatment with IV and oral meds Diet -- nectar thick and Ground/mech alerted Suspected scabies treated with Permethrin x 2 doses Stage 2 pressure ucler (L heel / M medial heel) - present on admission Stage 1 bilateral buttock - present on admission seen by supervisor drapery hanging with following instructions: Woundres Gel for the heel + Foam dressing Barrier cream Continue other usual decub preacutions -- nutrition + air loss bed + nutrition (on supplements), etc Dispo: Placement pending, guardianship for jun 29, 2021 Quality Stroke Does the patient have a stroke diagnosis?: No VTE Prior VTE?: No VTE Risk Level:: Medical - moderate - high VTE Device Contraindication: N/A - Device Ordered VTE Drug Contraindication: N/A - Med Ordered
[2021-06-28] MEDS: Folic Acid 1 MG TABLET PO (09:49)
[2021-06-28] MEDS: Heparin Sodium,Porcine 5,000 UNIT/ML VIAL 5000 UNIT SUBCUT ×2 (09:49→19:18)
[2021-06-28] MEDS: Thiamine HCL 100 MG TABLET PO (09:49)
[2021-06-28 11:29] VITALS: BP 123/64; PULSE 68; RESP 18; TEMP 37; O2SAT 97
[2021-06-28 15:05] VITALS: BP 144/61; PULSE 66; RESP 18; TEMP 36.9; O2SAT 97
[2021-06-28] MEDS: OLANZapine 5 MG TABLET PO (19:18)
[2021-06-28] MEDS: traZODone HCL 25 MG HALFTAB PO (19:18)
[2021-06-29] VITALS: BP 109/55; PULSE 67; RESP 18; TEMP 36.1; O2SAT 97
[2021-06-29] MEDS: Omeprazole 20 MG CAPSULE.DR PO (04:44)
[2021-06-29 07:54] VITALS: BP 136/70; PULSE 60; RESP 18; TEMP 36.1; O2SAT 95
[2021-06-29] MEDS: Folic Acid 1 MG TABLET PO (09:04)
[2021-06-29] MEDS: Heparin Sodium,Porcine 5,000 UNIT/ML VIAL 5000 UNIT SUBCUT ×2 (09:04→21:12)
[2021-06-29] MEDS: Thiamine HCL 100 MG TABLET PO (09:04)
--- NOTE | 2021-06-29 10:15 | HO.PM.IMPN ---
Subjective Subjective Date of Service: 06/29/21 Interval History: the patient was seen and evaluated this morning Laying in bed, sleeping, feels comfortable Denies any fever, chills or shortness of breath No reported other overnight events. Systemic review: No fever, chills or weakness No chest pain, palpitation No shortness of breath or coughing No abdominal pain, nausea or vomiting Physical Exam Vital Signs: Vital Signs: Last Vital Signs Temp 97.0 F 06/29/21 07:54 Pulse 60 06/29/21 07:54 Resp 18 06/29/21 07:54 BP 136/70 06/29/21 07:54 Pulse Ox 95 06/29/21 07:54 BMI result Body Mass Index 21.1 Const: Other: Constitutional : Alert, disoriented, not in distress Neck : Normal inspection, Supple Respiratory : Chest moving bilaterally, no respiratory distress Neurological : Alert & disoriented, No focal deficit Objective Data Active Medications Acetaminophen (Acetaminophen 325 Mg Tablet) 650 mg PO Q4H PRN PRN Reason: mild pain Last Admin: 06/23/21 13:39 Dose: 650 mg Documented by: CHARLES Folic Acid (Folic Acid 1 Mg Tablet) 1 mg PO DAILY [facility] Last Admin: 06/29/21 09:04 Dose: 1 mg Documented by: GOLDEN Heparin Sodium (Porcine) (Heparin Sodium,Porcine 5,000 Unit/Ml Vial) 5,000 unit SUBCUT Q12H [facility] Last Admin: 06/29/21 09:04 Dose: 5,000 unit Documented by: GOLDEN Hydroxyzine HCl (Hydroxyzine Hcl 50 Mg/Ml Vial) 25 mg IM Q6H PRN PRN Reason: anxiety/restlessness Last Admin: 06/24/21 04:26 Dose: 25 mg Documented by: LUCIANARISFarhan Olanzapine (Olanzapine 5 Mg Tablet) 5 mg PO BEDTIME [facility] Last Admin: 06/28/21 19:18 Dose: 5 mg Documented by: ELODIA Omeprazole (Omeprazole 20 Mg Capsule.Dr) 20 mg PO DAILY@0630 [facility] Last Admin: 06/29/21 04:44 Dose: 20 mg Documented by: ELODIA Pharmacy Consult (Consult Rx Perform Med Rec) 1 each MISCELLANE ONCE PRN PRN Reason: Consult order Sodium Chloride (0.9 % Sodium Chloride Flush 3 Ml Syringe) 3 ml IVFLUSH QSHIFT [facility] Last Admin: 06/29/21 09:05 Dose: Not Given Documented by: GOLDEN Non-Admin Reason: No Access Thiamine HCl (Thiamine Hcl 100 Mg Tablet) 100 mg PO DAILY [facility] Last Admin: 06/29/21 09:04 Dose: 100 mg Documented by: GOLDEN Trazodone HCl (Trazodone Hcl 25 Mg Halftab) 25 mg PO BEDTIME [facility] Last Admin: 06/28/21 19:18 Dose: 25 mg Documented by: ELODIA Labs CBC & Chem 7: 06/12/21 05:12 06/12/21 05:12 Assessment and Plan (1) Dementia with behavioral disturbance: Status: Acute (2) Adult failure to thrive: Status: Acute Assessment and Plan: hospital d#32 75 yo M who presented to the ED on 05/23/21 for AMS and failure to thrive. He was initially going to be placed at a facility, but on 05/29 was noted to have cough and a CXR revealed a new R base infiltrate concerning for aspiration pneumonia has completed Abx course and now awaiting placement Dementia with behavioral disturbances Alert and interactive Continue medications per psych Evaluated by psych -- does not have capacity Aspiration Pneumonia completed treatment with IV and oral meds Diet -- nectar thick and Ground/mech alerted Suspected scabies treated with Permethrin x 2 doses Stage 2 pressure ucler (L heel / M medial heel) - present on admission Stage 1 bilateral buttock - present on admission seen by human capital consultant with following instructions: Woundres Gel for the heel + Foam dressing Barrier cream Continue other usual decub preacutions -- nutrition + air loss bed + nutrition (on supplements), etc Dispo: Placement pending, guardianship for jun 29, 2021 Quality Stroke Does the patient have a stroke diagnosis?: No VTE Prior VTE?: No VTE Risk Level:: Medical - moderate - high VTE Device Contraindication: N/A - Device Ordered VTE Drug Contraindication: N/A - Med Ordered
[2021-06-29 15:15] VITALS: BP 132/82; PULSE 73; RESP 16; TEMP 36.6; O2SAT 98
[2021-06-29] MEDS: 0.9 % Sodium Chloride Flush 3 ML SYRINGE IVFLUSH (21:12)
[2021-06-29] MEDS: OLANZapine 5 MG TABLET PO (21:12)
[2021-06-29] MEDS: traZODone HCL 25 MG HALFTAB PO (21:12)
[2021-06-29 23:39] VITALS: BP 115/55; PULSE 62; RESP 16; TEMP 36.6; O2SAT 93
[2021-06-30] MEDS: Omeprazole 20 MG CAPSULE.DR PO (06:43)
[2021-06-30 07:40] VITALS: BP 124/67; PULSE 59; RESP 14; TEMP 36.2; O2SAT 100
[2021-06-30] MEDS: Heparin Sodium,Porcine 5,000 UNIT/ML VIAL 5000 UNIT SUBCUT ×2 (08:27→21:16)
[2021-06-30] MEDS: Folic Acid 1 MG TABLET PO (08:28)
[2021-06-30] MEDS: Thiamine HCL 100 MG TABLET PO (08:28)
--- NOTE | 2021-06-30 08:56 | P.PNIM_ITS ---
Subjective Subjective Date of Service: 06/30/21 Interval History: the patient was seen and evaluated this morning Laying in bed, sleeping, looks comfortable No reported other overnight events. Systemic review: No fever, chills or weakness No chest pain, palpitation No shortness of breath or coughing No abdominal pain, nausea or vomiting Physical Exam Vital Signs: Vital Signs: Last Vital Signs Temp 97.1 F 06/30/21 07:40 Pulse 59 06/30/21 07:40 Resp 14 06/30/21 07:40 BP 124/67 06/30/21 07:40 Pulse Ox 100 06/30/21 07:40 BMI result Body Mass Index 21.1 Const: Other: Constitutional : Alert, disoriented, not in distress Neck : Normal inspection, Supple Respiratory : Chest moving bilaterally, no respiratory distress Neurological : Alert & disoriented, No focal deficit Objective Data Active Medications Acetaminophen (Acetaminophen 325 Mg Tablet) 650 mg PO Q4H PRN PRN Reason: mild pain Last Admin: 06/23/21 13:39 Dose: 650 mg Documented by: CHARLES Folic Acid (Folic Acid 1 Mg Tablet) 1 mg PO DAILY [facility] Last Admin: 06/30/21 08:28 Dose: 1 mg Documented by: COTEMA Heparin Sodium (Porcine) (Heparin Sodium,Porcine 5,000 Unit/Ml Vial) 5,000 unit SUBCUT Q12H [facility] Last Admin: 06/30/21 08:27 Dose: 5,000 unit Documented by: COTEMA Hydroxyzine HCl (Hydroxyzine Hcl 50 Mg/Ml Vial) 25 mg IM Q6H PRN PRN Reason: anxiety/restlessness Last Admin: 06/24/21 04:26 Dose: 25 mg Documented by: LUCIANARISFarhan Olanzapine (Olanzapine 5 Mg Tablet) 5 mg PO BEDTIME [facility] Last Admin: 06/29/21 21:12 Dose: 5 mg Documented by: BENITA Omeprazole (Omeprazole 20 Mg Capsule.Dr) 20 mg PO DAILY@0630 [facility] Last Admin: 06/30/21 06:43 Dose: 20 mg Documented by: BENITA Pharmacy Consult (Consult Rx Perform Med Rec) 1 each MISCELLANE ONCE PRN PRN Reason: Consult order Sodium Chloride (0.9 % Sodium Chloride Flush 3 Ml Syringe) 3 ml IVFLUSH QSHIFT [facility] Last Admin: 06/30/21 07:18 Dose: Not Given Documented by: WANDY Non-Admin Reason: No Access Thiamine HCl (Thiamine Hcl 100 Mg Tablet) 100 mg PO DAILY [facility] Last Admin: 06/30/21 08:28 Dose: 100 mg Documented by: WANDY Trazodone HCl (Trazodone Hcl 25 Mg Halftab) 25 mg PO BEDTIME [facility] Last Admin: 06/29/21 21:12 Dose: 25 mg Documented by: BENITA Labs CBC & Chem 7: 06/12/21 05:12 06/12/21 05:12 Assessment and Plan (1) Dementia with behavioral disturbance: Status: Acute (2) Adult failure to thrive: Status: Acute Assessment and Plan: hospital d#33 75 yo M who presented to the ED on 05/23/21 for AMS and failure to thrive. He was initially going to be placed at a facility, but on 05/29 was noted to have cough and a CXR revealed a new R base infiltrate concerning for aspiration pneumonia has completed Abx course and now awaiting placement Dementia with behavioral disturbances Alert and interactive Continue medications per psych Evaluated by psych -- does not have capacity Aspiration Pneumonia completed treatment with IV and oral meds Diet -- nectar thick and Ground/mech alerted Suspected scabies treated with Permethrin x 2 doses Stage 2 pressure ucler (L heel / M medial heel) - present on admission Stage 1 bilateral buttock - present on admission seen by employment manager with following instructions: Woundres Gel for the heel + Foam dressing Barrier cream Continue other usual decub preacutions -- nutrition + air loss bed + nutrition (on supplements), etc Dispo: Placement pending, guardianship for jun 29, 2021 Quality Stroke Does the patient have a stroke diagnosis?: No VTE Prior VTE?: No VTE Risk Level:: Medical - moderate - high VTE Device Contraindication: N/A - Device Ordered VTE Drug Contraindication: N/A - Med Ordered
[2021-06-30 11:45] VITALS: BP 127/59; PULSE 58; RESP 14; TEMP 36.1; O2SAT 95
[2021-06-30] MEDS: traZODone HCL 25 MG HALFTAB PO (21:16)
[2021-06-30] MEDS: OLANZapine 5 MG TABLET PO (21:16)
[2021-06-30 23:36] VITALS: BP 149/64; PULSE 56; RESP 16; TEMP 36.1; O2SAT 95
[2021-07-01] MEDS: Omeprazole 20 MG CAPSULE.DR PO (05:33)
[2021-07-01 07:15] VITALS: BP 112/53; PULSE 64; RESP 18; TEMP 36.3; O2SAT 95
[2021-07-01] MEDS: Heparin Sodium,Porcine 5,000 UNIT/ML VIAL 5000 UNIT SUBCUT ×2 (09:04→21:14)
[2021-07-01] MEDS: Folic Acid 1 MG TABLET PO (09:05)
[2021-07-01] MEDS: Thiamine HCL 100 MG TABLET PO (09:05)
--- NOTE | 2021-07-01 11:01 | P.PNIM_ITS ---
Subjective Subjective Date of Service: 07/01/21 Interval History: Laying in bed, sleeping, looks comfortable No reported other overnight events. Systemic review: No fever, chills or weakness No chest pain, palpitation No shortness of breath or coughing No abdominal pain, nausea or vomiting Physical Exam Vital Signs: Vital Signs: Last Vital Signs Temp 97.4 F 07/01/21 07:15 Pulse 64 07/01/21 07:15 Resp 18 07/01/21 07:15 BP 112/53 L 07/01/21 07:15 Pulse Ox 95 07/01/21 07:15 BMI result Body Mass Index 21.1 Const: Other: Constitutional : Alert, disoriented, not in distress Neck : Normal inspection, Supple Respiratory : Chest moving bilaterally, no respiratory distress Neurological : Alert & disoriented, No focal deficit Objective Data Active Medications Acetaminophen (Acetaminophen 325 Mg Tablet) 650 mg PO Q4H PRN PRN Reason: mild pain Last Admin: 06/23/21 13:39 Dose: 650 mg Documented by: CHARLES Folic Acid (Folic Acid 1 Mg Tablet) 1 mg PO DAILY [facility] Last Admin: 07/01/21 09:05 Dose: 1 mg Documented by: COTEMA Heparin Sodium (Porcine) (Heparin Sodium,Porcine 5,000 Unit/Ml Vial) 5,000 unit SUBCUT Q12H [facility] Last Admin: 07/01/21 09:04 Dose: 5,000 unit Documented by: COTEMA Hydroxyzine HCl (Hydroxyzine Hcl 50 Mg/Ml Vial) 25 mg IM Q6H PRN PRN Reason: anxiety/restlessness Last Admin: 06/24/21 04:26 Dose: 25 mg Documented by: ARELY Olanzapine (Olanzapine 5 Mg Tablet) 5 mg PO BEDTIME [facility] Last Admin: 06/30/21 21:16 Dose: 5 mg Documented by: SYLVIA Omeprazole (Omeprazole 20 Mg Capsule.) 20 mg PO DAILY@0630 [facility] Last Admin: 07/01/21 05:33 Dose: 20 mg Documented by: SYLVIA Pharmacy Consult (Consult Rx Perform Med Rec) 1 each MISCELLANE ONCE PRN PRN Reason: Consult order Sodium Chloride (0.9 % Sodium Chloride Flush 3 Ml Syringe) 3 ml IVFLUSH QSHIFT [facility] Last Admin: 12/05/21 07:04 Dose: Not Given Documented by: WANDY Non-Admin Reason: No Access Thiamine HCl (Thiamine Hcl 100 Mg Tablet) 100 mg PO DAILY [facility] Last Admin: 07/01/21 09:05 Dose: 100 mg Documented by: COTJAYDA Trazodone HCl (Trazodone Hcl 25 Mg Halftab) 25 mg PO BEDTIME [facility] Last Admin: 06/30/21 21:16 Dose: 25 mg Documented by: CASTILM Labs CBC & Chem 7: 06/12/21 05:12 06/12/21 05:12 Assessment and Plan (1) Dementia with behavioral disturbance: Status: Acute Assessment and Plan: hospital d#34 75 yo M who presented to the ED on 05/23/21 for AMS and failure to thrive. He was initially going to be placed at a facility, but on 05/29 was noted to have cough and a CXR revealed a new R base infiltrate concerning for aspiration pneumonia has completed Abx course and now awaiting placement No Acute issues Dementia with behavioral disturbances Alert and interactive Continue medications per psych Evaluated by psych -- does not have capacity Aspiration Pneumonia completed treatment with IV and oral meds Diet -- nectar thick and Ground/mech alerted Suspected scabies treated with Permethrin x 2 doses Stage 2 pressure ucler (L heel / M medial heel) - present on admission Stage 1 bilateral buttock - present on admission seen by pleating supervisor with following instructions: Woundres Gel for the heel + Foam dressing Barrier cream Continue other usual decub preacutions -- nutrition + air loss bed + nutrition (on supplements), etc Dispo: Placement pending, guardianship for jun 29, 2021 Quality Stroke Does the patient have a stroke diagnosis?: No VTE Prior VTE?: No VTE Risk Level:: Medical - moderate - high VTE Device Contraindication: N/A - Device Ordered VTE Drug Contraindication: N/A - Med Ordered
[2021-07-01 16:00] VITALS: BP 133/56; PULSE 73; RESP 18; TEMP 36.6; O2SAT 96
[2021-07-01] MEDS: traZODone HCL 25 MG HALFTAB PO (21:14)
[2021-07-01] MEDS: OLANZapine 5 MG TABLET PO (21:14)
[2021-07-01 23:25] VITALS: BP 117/52; PULSE 61; RESP 18; TEMP 36.5; O2SAT 96
[2021-07-02] MEDS: Omeprazole 20 MG CAPSULE.DR PO (05:52)
[2021-07-02 06:52] VITALS: BP 136/65; PULSE 55; RESP 18; TEMP 36.3; O2SAT 98
[2021-07-02] MEDS: Thiamine HCL 100 MG TABLET PO (08:49)
[2021-07-02] MEDS: Folic Acid 1 MG TABLET PO (08:49)
--- NOTE | 2021-07-02 12:18 | P.PNIM_ITS ---
Subjective Subjective Date of Service: 07/02/21 Interval History: Sitting in his bed, having breakfast No reported other overnight events. Systemic review: No fever, chills or weakness No chest pain, palpitation No shortness of breath or coughing No abdominal pain, nausea or vomiting Physical Exam Vital Signs: Vital Signs: Last Vital Signs Temp 97.4 F 07/02/21 06:52 Pulse 55 07/02/21 06:52 Resp 18 07/02/21 06:52 BP 136/65 07/02/21 06:52 Pulse Ox 98 07/02/21 06:52 BMI result Body Mass Index 21.1 Const: Other: Constitutional : Alert, disoriented, not in distress Neck : Normal inspection, Supple Respiratory : Chest moving bilaterally, no respiratory distress Neurological : Alert & disoriented, No focal deficit Objective Data Active Medications Acetaminophen (Acetaminophen 325 Mg Tablet) 650 mg PO Q4H PRN PRN Reason: mild pain Last Admin: 06/23/21 13:39 Dose: 650 mg Documented by: CHARLES Folic Acid (Folic Acid 1 Mg Tablet) 1 mg PO DAILY [facility] Last Admin: 07/02/21 08:49 Dose: 1 mg Documented by: JODI Heparin Sodium (Porcine) (Heparin Sodium,Porcine 5,000 Unit/Ml Vial) 5,000 unit SUBCUT Q12H [facility] Last Admin: 07/02/21 08:56 Dose: Not Given Documented by: JODI Non-Admin Reason: Patient Refused Hydroxyzine HCl (Hydroxyzine Hcl 50 Mg/Ml Vial) 25 mg IM Q6H PRN PRN Reason: anxiety/restlessness Last Admin: 06/24/21 04:26 Dose: 25 mg Documented by: ARELY Olanzapine (Olanzapine 5 Mg Tablet) 5 mg PO BEDTIME [facility] Last Admin: 07/01/21 21:14 Dose: 5 mg Documented by: ARELY Omeprazole (Omeprazole 20 Mg Capsule.) 20 mg PO DAILY@0630 [facility] Last Admin: 07/02/21 05:52 Dose: 20 mg Documented by: ARELY Pharmacy Consult (Consult Rx Perform Med Rec) 1 each MISCELLANE ONCE PRN PRN Reason: Consult order Sodium Chloride (0.9 % Sodium Chloride Flush 3 Ml Syringe) 3 ml IVFLUSH QSHIFT [facility] Last Admin: 07/02/21 08:39 Dose: Not Given Documented by: JODI Non-Admin Reason: No Access Thiamine HCl (Thiamine Hcl 100 Mg Tablet) 100 mg PO DAILY [facility] Last Admin: 07/02/21 08:49 Dose: 100 mg Documented by: JODI Trazodone HCl (Trazodone Hcl 25 Mg Halftab) 25 mg PO BEDTIME [facility] Last Admin: 07/01/21 21:14 Dose: 25 mg Documented by: ARELY Labs CBC & Chem 7: 06/12/21 05:12 06/12/21 05:12 Assessment and Plan (1) Dementia with behavioral disturbance: Status: Acute Assessment and Plan: hospital d#35 75 yo M who presented to the ED on 05/23/21 for AMS and failure to thrive. He wa s initially going to be placed at a facility, but on 05/29 was noted to have cough and a CXR revealed a new R base infiltrate concerning for aspiration pneumonia has completed Abx course and now awaiting placement No Acute issues Dementia with behavioral disturbances Alert and interactive Continue medications per psych Evaluated by psych -- does not have capacity Aspiration Pneumonia completed treatment with IV and oral meds Diet -- nectar thick and Ground/mech alerted Suspected scabies treated with Permethrin x 2 doses Stage 2 pressure ucler (L heel / M medial heel) - present on admission Stage 1 bilateral buttock - present on admission seen by rivet sorter with following instructions: Woundres Gel for the heel + Foam dressing Barrier cream Continue other usual decub preacutions -- nutrition + air loss bed + nutrition (on supplements), etc Dispo: Placement pending, guardianship for jun 29, 2021 Quality Stroke Does the patient have a stroke diagnosis?: No VTE Prior VTE?: No VTE Risk Level:: Medical - moderate - high VTE Device Contraindication: N/A - Device Ordered VTE Drug Contraindication: N/A - Med Ordered
--- NOTE | 2021-07-02 13:36 | MHC.CLN ---
F/U DIET=2 GRAM SODIUM, NDD2, THIN LIQUIDS; SUPPLEMENT ENSURE TID (1050 KCAL, 39 G PROTEIN). WOUNDS: STAGE I BILATERAL BUTTOCKS, STAGE II LEFT HEEL. CONTINUE ENSURE TID (1050 KCAL, [address]IN). RD TO FOLLOW WEEKLY.
[2021-07-02 15:33] VITALS: BP 146/73; PULSE 72; RESP 18; TEMP 36.3; O2SAT 96
[2021-07-02] MEDS: OLANZapine 5 MG TABLET PO (20:24)
[2021-07-02] MEDS: traZODone HCL 25 MG HALFTAB PO (20:24)
[2021-07-03] VITALS: BP 117/61; PULSE 70; RESP 17; TEMP 36.4; O2SAT 95
[2021-07-03] MEDS: Omeprazole 20 MG CAPSULE.DR PO (06:26)
[2021-07-03 07:30] VITALS: BP 128/60; PULSE 63; RESP 18; TEMP 36.4; O2SAT 98
[2021-07-03] MEDS: Folic Acid 1 MG TABLET PO (10:01)
[2021-07-03] MEDS: Heparin Sodium,Porcine 5,000 UNIT/ML VIAL 5000 UNIT SUBCUT ×2 (10:02→22:02)
[2021-07-03] MEDS: Thiamine HCL 100 MG TABLET PO (10:02)
--- NOTE | 2021-07-03 11:13 | P.PNIM_ITS ---
Subjective Subjective Date of Service: 07/03/21 Interval History: Sitting in his bed, having breakfast No reported other overnight events. Systemic review: No fever, chills or weakness No chest pain, palpitation No shortness of breath or coughing No abdominal pain, nausea or vomiting Physical Exam Vital Signs: Vital Signs: Last Vital Signs Temp 97.5 F 07/03/21 07:30 Pulse 63 07/03/21 07:30 Resp 18 07/03/21 07:30 BP 128/60 07/03/21 07:30 Pulse Ox 98 07/03/21 07:30 BMI result Body Mass Index 21.1 Const: Other: Constitutional : Alert, disoriented, not in distress Neck : Normal inspection, Supple Respiratory : Chest moving bilaterally, no respiratory distress Neurological : Alert & disoriented, No focal deficit Objective Data Active Medications Acetaminophen (Acetaminophen 325 Mg Tablet) 650 mg PO Q4H PRN PRN Reason: mild pain Last Admin: 06/23/21 13:39 Dose: 650 mg Documented by: CHARLES Folic Acid (Folic Acid 1 Mg Tablet) 1 mg PO DAILY [facility] Last Admin: 07/03/21 10:01 Dose: 1 mg Documented by: TERESITA Heparin Sodium (Porcine) (Heparin Sodium,Porcine 5,000 Unit/Ml Vial) 5,000 unit SUBCUT Q12H [facility] Last Admin: 07/03/21 10:02 Dose: 5,000 unit Documented by: TERESITA Hydroxyzine HCl (Hydroxyzine Hcl 50 Mg/Ml Vial) 25 mg IM Q6H PRN PRN Reason: anxiety/restlessness Last Admin: 06/24/21 04:26 Dose: 25 mg Documented by: ARELY Olanzapine (Olanzapine 5 Mg Tablet) 5 mg PO BEDTIME [facility] Last Admin: 07/02/21 20:24 Dose: 5 mg Documented by: ARELY Omeprazole (Omeprazole 20 Mg Capsule.) 20 mg PO DAILY@0630 [facility] Last Admin: 07/03/21 06:26 Dose: 20 mg Documented by: MARY Pharmacy Consult (Consult Rx Perform Med Rec) 1 each MISCELLANE ONCE PRN PRN Reason: Consult order Sodium Chloride (0.9 % Sodium Chloride Flush 3 Ml Syringe) 3 ml IVFLUSH QSHIFT [facility] Last Admin: 07/03/21 10:02 Dose: Not Given Documented by: TERESITA Non-Admin Reason: No Access Thiamine HCl (Thiamine Hcl 100 Mg Tablet) 100 mg PO DAILY [facility] Last Admin: 07/03/21 10:02 Dose: 100 mg Documented by: TERESITA Trazodone HCl (Trazodone Hcl 25 Mg Halftab) 25 mg PO BEDTIME [facility] Last Admin: 07/02/21 20:24 Dose: 25 mg Documented by: LUCIANARISFarhan Labs CBC & Chem 7: 06/12/21 05:12 06/12/21 05:12 Assessment and Plan (1) Dementia with behavioral disturbance: Status: Acute Assessment and Plan: hospital d#36 75 yo M who presented to the ED on 05/23/21 for AMS and failure to thrive. He was initially going to be placed at a facility, but on 05/29 was noted to have cough and a CXR revealed a new R base infiltrate concerning for aspiration pneumonia has completed Abx course and now awaiting placement No Acute issues Dementia with behavioral disturbances Alert and interactive Continue medications per psych Evaluated by psych -- does not have capacity Aspiration Pneumonia completed treatment Diet -- [facility] Suspected scabies treated with Permethrin x 2 doses Stage 2 pressure ucler (L heel / M medial heel) - present on admission Stage 1 bilateral buttock - present on admission seen by state auditor with following instructions: Woundres Gel for the heel + Foam dressing Barrier cream Continue other usual decub preacutions -- nutrition + air loss bed + nutrition (on supplements), etc Dispo: Placement pending, guardianship guaranteed by court but CM still waiting paperwork Quality Stroke Does the patient have a stroke diagnosis?: No VTE Prior VTE?: No VTE Risk Level:: Medical - moderate - high VTE Device Contraindication: N/A - Device Ordered VTE Drug Contraindication: N/A - Med Ordered
--- NOTE | 2021-07-03 14:22 | MHC.CM.PN ---
Addendum entered by Dionna Raines 07/03/21 16:37: GUARDIANSHIP AND CONSERVATORSHIP FORMS RECEIVED AND UPLOADED INTO [employer] REQUIRED PAPERWORK SENT TO [facility] [employer] Original Note: CASE MANAGEMENT AWAITING COURT DOCUMENTS FOR GUARDIANSHIP/CONSERVATORSHIP ONCE RECEIVED, CASE MANAGEMENT TO CONTINUE WITH ATTEMPTS AT PLACEMENT.
[2021-07-03] MEDS: Sennosides 8.6 MG TABLET PO (15:50)
[2021-07-03] MEDS: Milk of Magnesia 30 ML ORAL.SUSP PO (15:50)
[2021-07-03 16:00] VITALS: BP 156/82; PULSE 65; RESP 18; TEMP 36.4; O2SAT 97
[2021-07-03] MEDS: OLANZapine 5 MG TABLET PO (21:58)
[2021-07-03] MEDS: traZODone HCL 25 MG HALFTAB PO (21:58)
[2021-07-03 23:18] VITALS: BP 120/56; PULSE 64; RESP 18; TEMP 36.3; O2SAT 96
[2021-07-04] MEDS: Omeprazole 20 MG CAPSULE.DR PO (06:30)
[2021-07-04 07:53] VITALS: BP 149/72; PULSE 73; RESP 18; TEMP 36.6; O2SAT 97
[2021-07-04] MEDS: Folic Acid 1 MG TABLET PO (08:19)
[2021-07-04] MEDS: Thiamine HCL 100 MG TABLET PO (08:19)
[2021-07-04] MEDS: Sennosides 8.6 MG TABLET PO (08:19)
[2021-07-04] MEDS: Heparin Sodium,Porcine 5,000 UNIT/ML VIAL 5000 UNIT SUBCUT ×2 (08:19→20:47)
--- NOTE | 2021-07-04 11:13 | P.PNIM_ITS ---
Subjective Subjective Date of Service: 07/04/21 Interval History: no complaints Cardiovascular Cardiovascular: Reports no additional cardiovascular complaints Respiratory Respiratory: Reports no additional respiratory complaints Physical Exam Vital Signs: Vital Signs: Last Vital Signs Temp 97.8 F 07/04/21 07:53 Pulse 73 07/04/21 07:53 Resp 18 07/04/21 07:53 BP 149/72 H 07/04/21 07:53 Pulse Ox 97 07/04/21 07:53 BMI result Body Mass Index 21.1 Other:?Constitutional : Alert, disoriented, not in distress Neck : Normal inspection, Supple Respiratory :? Chest moving bilaterally, no respiratory distress Neurological : Alert & disoriented, No focal deficit Objective Data Active Medications Acetaminophen (Acetaminophen 325 Mg Tablet) 650 mg PO Q4H PRN PRN Reason: mild pain Last Admin: 06/23/21 13:39 Dose: 650 mg Documented by: CHARLES Folic Acid (Folic Acid 1 Mg Tablet) 1 mg PO DAILY [facility] Last Admin: 07/04/21 08:19 Dose: 1 mg Documented by: KARINA Heparin Sodium (Porcine) (Heparin Sodium,Porcine 5,000 Unit/Ml Vial) 5,000 unit SUBCUT Q12H [facility] Last Admin: 07/04/21 08:19 Dose: 5,000 unit Documented by: KARINA Hydroxyzine HCl (Hydroxyzine Hcl 50 Mg/Ml Vial) 25 mg IM Q6H PRN PRN Reason: anxiety/restlessness Last Admin: 06/24/21 04:26 Dose: 25 mg Documented by: ODRISFarhan Olanzapine (Olanzapine 5 Mg Tablet) 5 mg PO BEDTIME [facility] Last Admin: 07/03/21 21:58 Dose: 5 mg Documented by: GIL Omeprazole (Omeprazole 20 Mg Capsule.Dr) 20 mg PO DAILY@0630 [facility] Last Admin: 07/04/21 06:30 Dose: 20 mg Documented by: GIL Pharmacy Consult (Consult Rx Perform Med Rec) 1 each MISCELLANE ONCE PRN PRN Reason: Consult order Senna (Sennosides 8.6 Mg Tablet) 8.6 mg PO DAILY [facility] Last Admin: 07/04/21 08:19 Dose: 8.6 mg Documented by: KARINA Sodium Chloride (0.9 % Sodium Chloride Flush 3 Ml Syringe) 3 ml IVFLUSH QSHIFT [facility] Last Admin: 07/04/21 07:26 Dose: Not Given Documented by: KARINA Non-Admin Reason: No Insulin Coverage Thiamine HCl (Thiamine Hcl 100 Mg Tablet) 100 mg PO DAILY [facility] Last Admin: 07/04/21 08:19 Dose: 100 mg Documented by: KARINA Trazodone HCl (Trazodone Hcl 25 Mg Halftab) 25 mg PO BEDTIME [facility] Last Admin: 07/03/21 21:58 Dose: 25 mg Documented by: GIL Labs CBC & Chem 7: 06/12/21 05:12 06/12/21 05:12 Assessment and Plan (1) Dementia with behavioral disturbance: Status: Acute Assessment and Plan: hospital d#37 75 yo M who presented to the ED on 05/23/21 for AMS and failure to thrive. He was initially going to be placed at a facility, but on 05/29 was noted to have cough and a CXR revealed a new R base infiltrate concerning for aspiration pneumonia has completed Abx course and now awaiting placement No Acute issues Dementia with behavioral disturbances Alert and interactive Continue medications per psych Evaluated by psych -- does not have capacity Aspiration Pneumonia completed treatment Diet -- nectar thick and Ground/mech alerted Suspected scabies treated with Permethrin x 2 doses Stage 2 pressure ucler (L heel / M medial heel) - present on admission Stage 1 bilateral buttock - present on admission seen by steam shovel operating engineer with following instructions: Woundres Gel for the heel + Foam dressing Barrier cream Continue other usual decub preacutions -- nutrition + air loss bed + nutrition (on supplements), etc Dispo: Placement pending, guardianship guaranteed by court but CM still waiting paperwork Quality Stroke Does the patient have a stroke diagnosis?: No VTE Prior VTE?: No VTE Risk Level:: Medical - moderate - high VTE Device Contraindication: N/A - Device Ordered VTE Drug Contraindication: N/A - Med Ordered
[2021-07-04 16:00] VITALS: BP 98/56; PULSE 71; RESP 16; TEMP 37.1; O2SAT 95
[2021-07-04] MEDS: OLANZapine 5 MG TABLET PO (20:48)
[2021-07-04] MEDS: traZODone HCL 25 MG HALFTAB PO (20:48)
[2021-07-04 23:50] VITALS: BP 101/57; PULSE 52; RESP 16; TEMP 36.1; O2SAT 95
[2021-07-05] MEDS: Omeprazole 20 MG CAPSULE.DR PO (06:10)
[2021-07-05 08:00] VITALS: BP 131/55; PULSE 48; RESP 15; TEMP 36.4; O2SAT 98
[2021-07-05] MEDS: Sennosides 8.6 MG TABLET PO (08:37)
[2021-07-05] MEDS: Heparin Sodium,Porcine 5,000 UNIT/ML VIAL 5000 UNIT SUBCUT ×2 (08:37→20:25)
[2021-07-05] MEDS: Thiamine HCL 100 MG TABLET PO (08:37)
[2021-07-05] MEDS: Folic Acid 1 MG TABLET PO (08:37)
--- NOTE | 2021-07-05 09:48 | P.PNIM_ITS ---
Subjective Subjective Date of Service: 07/05/21 Interval History: no cmplaints Cardiovascular Cardiovascular: Reports no additional cardiovascular complaints Respiratory Respiratory: Reports no additional respiratory complaints Physical Exam Vital Signs: Vital Signs: Last Vital Signs Temp 97.6 F 07/05/21 08:00 Pulse 48 L 07/05/21 08:00 Resp 15 07/05/21 08:00 BP 131/55 L 07/05/21 08:00 Pulse Ox 98 07/05/21 08:00 BMI result Body Mass Index 21.1 Other:?Constitutional : Alert, disoriented, not in distress Neck : Normal inspection, Supple Respiratory :? Chest moving bilaterally, no respiratory distress Neurological : Alert & disoriented, No focal deficit Objective Data Active Medications Acetaminophen (Acetaminophen 325 Mg Tablet) 650 mg PO Q4H PRN PRN Reason: mild pain Last Admin: 06/23/21 13:39 Dose: 650 mg Documented by: CHARLES Folic Acid (Folic Acid 1 Mg Tablet) 1 mg PO DAILY [facility] Last Admin: 07/05/21 08:37 Dose: 1 mg Documented by: KARINA Heparin Sodium (Porcine) (Heparin Sodium,Porcine 5,000 Unit/Ml Vial) 5,000 unit SUBCUT Q12H [facility] Last Admin: 07/05/21 08:37 Dose: 5,000 unit Documented by: KARINA Hydroxyzine HCl (Hydroxyzine Hcl 50 Mg/Ml Vial) 25 mg IM Q6H PRN PRN Reason: anxiety/restlessness Last Admin: 06/24/21 04:26 Dose: 25 mg Documented by: LUCIANARISFarhan Olanzapine (Olanzapine 5 Mg Tablet) 5 mg PO BEDTIME [facility] Last Admin: 07/04/21 20:48 Dose: 5 mg Documented by: GIL Omeprazole (Omeprazole 20 Mg Capsule.) 20 mg PO DAILY@0630 [facility] Last Admin: 07/05/21 06:10 Dose: 20 mg Documented by: GIL Pharmacy Consult (Consult Rx Perform Med Rec) 1 each MISCELLANE ONCE PRN PRN Reason: Consult order Senna (Sennosides 8.6 Mg Tablet) 8.6 mg PO DAILY [facility] Last Admin: 07/05/21 08:37 Dose: 8.6 mg Documented by: KARINA Sodium Chloride (0.9 % Sodium Chloride Flush 3 Ml Syringe) 3 ml IVFLUSH QSHIFT [facility] Last Admin: 07/05/21 07:35 Dose: Not Given Documented by: KARINA Non-Admin Reason: No Access Thiamine HCl (Thiamine Hcl 100 Mg Tablet) 100 mg PO DAILY [facility] Last Admin: 07/05/21 08:37 Dose: 100 mg Documented by: KARINA Trazodone HCl (Trazodone Hcl 25 Mg Halftab) 25 mg PO BEDTIME [facility] Last Admin: 07/04/21 20:48 Dose: 25 mg Documented by: GIL Labs CBC & Chem 7: 06/12/21 05:12 06/12/21 05:12 Assessment and Plan (1) Dementia with behavioral disturbance: Status: Acute Assessment and Plan: hospital d#38 75 yo M who presented to the ED on 05/23/21 for AMS and failure to thrive. He was initially going to be placed at a facility, but on 05/29 was noted to have cough and a CXR revealed a new R base infiltrate concerning for aspiration pneumonia has completed Abx course and now awaiting placement No Acute issues Dementia with behavioral disturbances Alert and interactive Continue medications per psych Evaluated by psych -- does not have capacity Aspiration Pneumonia completed treatment Diet -- nectar thick and Ground/mech alerted Suspected scabies treated with Permethrin x 2 doses Stage 2 pressure ucler (L heel / M medial heel) - present on admission Stage 1 bilateral buttock - present on admission seen by diet consultant with following instructions: Woundres Gel for the heel + Foam dressing Barrier cream Continue other usual decub preacutions -- nutrition + air loss bed + nutrition (on supplements), etc Dispo: Placement pending, guardianship guaranteed by court but CM still waiting paperwork Quality Stroke Does the patient have a stroke diagnosis?: No VTE Prior VTE?: No VTE Risk Level:: Medical - moderate - high VTE Device Contraindication: N/A - Device Ordered VTE Drug Contraindication: N/A - Med Ordered
--- NOTE | 2021-07-05 10:03 | MHC.CM.PN ---
Addendum entered by Dionna Raines 07/05/21 11:29: COVID-19 VACCINATION IS SCHEDULED BETWEEN [id number] ON JULY 16, 2021. PATIENT HAS RIGHT TO CHOOSE WHICH VACCINE HE WANTS OUT OF THE VACCINES THAT WILL BE AVAILABLE ON THAT DAY. RN, UNIT,SERGE, AND BUILDING PRINCIPAL MADE AWARE. THIS SAFETY PHYSICIAN TO SEND EMAIL TO PATIENT'S GUARDIAN TO MAKE HER AWARE. Original Note: THIS SAFETY PHYSICIAN MET WITH ASAF WHO STATES THAT HE IS AWARE OF THE COVID-19 PANDEMIC. PATIENT STATES THAT HE DOES WANT TO BE VACCINATED IF ABLE WHY NOT? I GET VACCINATED FOR EVERYTHING ELSE, RIGHT? GUARDIAN/ATTY SACHIN KLEIN IS IN AGREEMENT WITH THIS LONG PATIENT IS IN AGREEMENT (CONVERSATION OCCURED TODAY JUST PRIOR TO THIS SAFETY PHYSICIAN MEETING WITH PATIENT)
--- NOTE | 2021-07-05 15:05 | MHC.CM.PN ---
FACE SHEET AND COURT DOCUMENTS FAXED TO [facility] [place] FIN[facility] DEPT AT [phone] WITH REQUEST FOR LTC APPLICATION ASSISTANCE [facility] MADE AWARE
[2021-07-05 15:15] VITALS: BP 173/77; PULSE 63; RESP 18; TEMP 36.4; O2SAT 98
[2021-07-05] MEDS: OLANZapine 5 MG TABLET PO (20:25)
[2021-07-05] MEDS: traZODone HCL 25 MG HALFTAB PO (20:25)
[2021-07-05 23:45] VITALS: BP 109/51; PULSE 52; RESP 16; TEMP 36.5; O2SAT 99
[2021-07-06] MEDS: Omeprazole 20 MG CAPSULE.DR PO (06:25)
[2021-07-06 07:58] VITALS: BP 149/78; PULSE 64; RESP 18; TEMP 36.7; O2SAT 98
--- NOTE | 2021-07-06 09:28 | HO.PM.IMPN ---
Subjective Subjective Date of Service: 07/06/21 Interval History: no complaitns Cardiovascular Cardiovascular: Reports no additional cardiovascular complaints Respiratory Respiratory: Reports no additional respiratory complaints Physical Exam Vital Signs: Vital Signs: Last Vital Signs Temp 98.1 F 07/06/21 07:58 Pulse 64 07/06/21 07:58 Resp 18 07/06/21 07:58 BP 149/78 H 07/06/21 07:58 Pulse Ox 98 07/06/21 07:58 BMI result Body Mass Index 21.1 Other:?Constitutional : Alert, disoriented, not in distress Neck : Normal inspection, Supple Respiratory :? Chest moving bilaterally, no respiratory distress Neurological : Alert & disoriented, No focal deficit Objective Data Active Medications Acetaminophen (Acetaminophen 325 Mg Tablet) 650 mg PO Q4H PRN PRN Reason: mild pain Last Admin: 06/23/21 13:39 Dose: 650 mg Documented by: CHARLES Folic Acid (Folic Acid 1 Mg Tablet) 1 mg PO DAILY [facility] Last Admin: 07/05/21 08:37 Dose: 1 mg Documented by: KARINA Heparin Sodium (Porcine) (Heparin Sodium,Porcine 5,000 Unit/Ml Vial) 5,000 unit SUBCUT Q12H [facility] Last Admin: 07/05/21 20:25 Dose: 5,000 unit Documented by: GIL Hydroxyzine HCl (Hydroxyzine Hcl 50 Mg/Ml Vial) 25 mg IM Q6H PRN PRN Reason: anxiety/restlessness Last Admin: 06/24/21 04:26 Dose: 25 mg Documented by: LUCIANARISFarhan Olanzapine (Olanzapine 5 Mg Tablet) 5 mg PO BEDTIME [facility] Last Admin: 07/05/21 20:25 Dose: 5 mg Documented by: GIL Omeprazole (Omeprazole 20 Mg Capsule.) 20 mg PO DAILY@0630 [facility] Last Admin: 07/06/21 06:25 Dose: 20 mg Documented by: GIL Pharmacy Consult (Consult Rx Perform Med Rec) 1 each MISCELLANE ONCE PRN PRN Reason: Consult order Senna (Sennosides 8.6 Mg Tablet) 8.6 mg PO DAILY [facility] Last Admin: 07/05/21 08:37 Dose: 8.6 mg Documented by: KARINA Sodium Chloride (0.9 % Sodium Chloride Flush 3 Ml Syringe) 3 ml IVFLUSH QSHIFT [facility] Last Admin: 07/06/21 07:35 Dose: Not Given Documented by: GIL Non-Admin Reason: No Access Thiamine HCl (Thiamine Hcl 100 Mg Tablet) 100 mg PO DAILY [facility] Last Admin: 07/05/21 08:37 Dose: 100 mg Documented by: DABAmaris Trazodone HCl (Trazodone Hcl 25 Mg Halftab) 25 mg PO BEDTIME [facility] Last Admin: 07/05/21 20:25 Dose: 25 mg Documented by: GIL Labs CBC & Chem 7: 06/12/21 05:12 06/12/21 05:12 Assessment and Plan (1) Dementia with behavioral disturbance: Status: Acute Assessment and Plan: hospital d#39 75 yo M who presented to the ED on 05/23/21 for AMS and failure to thrive. He was initially going to be placed at a facility, but on 05/29 was noted to have cough and a CXR revealed a new R base infiltrate concerning for aspiration pneumonia has completed Abx course and now awaiting placement No Acute issues Dementia with behavioral disturbances Alert and interactive Continue medications per psych Evaluated by psych -- does not have capacity Aspiration Pneumonia completed treatment Diet -- nectar thick and Ground/mech alerted Suspected scabies treated with Permethrin x 2 doses Stage 2 pressure ucler (L heel / M medial heel) - present on admission Stage 1 bilateral buttock - present on admission seen by maintenance worker municipal with following instructions: Woundres Gel for the heel + Foam dressing Barrier cream Continue other usual decub preacutions -- nutrition + air loss bed + nutrition (on supplements), etc Dispo: Placement pending, guardianship guaranteed by court but CM still waiting paperwork Quality Stroke Does the patient have a stroke diagnosis?: No VTE Prior VTE?: No VTE Risk Level:: Medical - moderate - high VTE Device Contraindication: N/A - Device Ordered VTE Drug Contraindication: N/A - Med Ordered
[2021-07-06] MEDS: Folic Acid 1 MG TABLET PO (09:40)
[2021-07-06] MEDS: Thiamine HCL 100 MG TABLET PO (09:40)
[2021-07-06] MEDS: Sennosides 8.6 MG TABLET PO (09:40)
[2021-07-06] MEDS: Heparin Sodium,Porcine 5,000 UNIT/ML VIAL 5000 UNIT SUBCUT ×2 (09:40→19:51)
[2021-07-06 16:00] VITALS: BP 156/69; PULSE 58; RESP 16; TEMP 36.2; O2SAT 96
[2021-07-06] MEDS: traZODone HCL 25 MG HALFTAB PO (19:50)
[2021-07-06] MEDS: OLANZapine 5 MG TABLET PO (19:51)
[2021-07-06] MEDS: hydrOXYzine HCL 50 MG/ML VIAL 25 MG IM (21:45)
[2021-07-06 23:39] VITALS: BP 124/72; PULSE 56; RESP 16; TEMP 36.2; O2SAT 95
[2021-07-07 08:00] VITALS: BP 143/73; PULSE 51; RESP 18; TEMP 36.3; O2SAT 99
--- NOTE | 2021-07-07 08:43 | HO.PM.IMPN ---
Subjective Subjective Date of Service: 07/07/21 Interval History: no complaints Cardiovascular Cardiovascular: Reports no additional cardiovascular complaints Respiratory Respiratory: Reports no additional respiratory complaints Physical Exam Vital Signs: Vital Signs: Last Vital Signs Temp 97.4 F 07/07/21 08:00 Pulse 51 07/07/21 08:00 Resp 18 07/07/21 08:00 BP 143/73 H 07/07/21 08:00 Pulse Ox 99 07/07/21 08:00 BMI result Body Mass Index 21.1 Other:?Constitutional : Alert, disoriented, not in distress Neck : Normal inspection, Supple Respiratory :? Chest moving bilaterally, no respiratory distress Neurological : Alert & disoriented, No focal deficit Objective Data Active Medications Acetaminophen (Acetaminophen 325 Mg Tablet) 650 mg PO Q4H PRN PRN Reason: mild pain Last Admin: 06/23/21 13:39 Dose: 650 mg Documented by: CHARLES Folic Acid (Folic Acid 1 Mg Tablet) 1 mg PO DAILY [facility] Last Admin: 07/06/21 09:40 Dose: 1 mg Documented by: KARLEY Heparin Sodium (Porcine) (Heparin Sodium,Porcine 5,000 Unit/Ml Vial) 5,000 unit SUBCUT Q12H [facility] Last Admin: 07/06/21 19:51 Dose: 5,000 unit Documented by: KELSEY Hydroxyzine HCl (Hydroxyzine Hcl 50 Mg/Ml Vial) 25 mg IM Q6H PRN PRN Reason: anxiety/restlessness Last Admin: 07/06/21 21:45 Dose: 25 mg Documented by: KELSEY Olanzapine (Olanzapine 5 Mg Tablet) 5 mg PO BEDTIME [facility] Last Admin: 07/06/21 19:51 Dose: 5 mg Documented by: KELSEY Omeprazole (Omeprazole 20 Mg Capsule.Dr) 20 mg PO DAILY@0630 [facility] Last Admin: 07/07/21 06:46 Dose: Not Given Documented by: DEONTE Non-Admin Reason: Patient Refused Pharmacy Consult (Consult Rx Perform Med Rec) 1 each MISCELLANE ONCE PRN PRN Reason: Consult order Senna (Sennosides 8.6 Mg Tablet) 8.6 mg PO DAILY [facility] Last Admin: 07/06/21 09:40 Dose: 8.6 mg Documented by: KARLEY Sodium Chloride (0.9 % Sodium Chloride Flush 3 Ml Syringe) 3 ml IVFLUSH QSHIFT [facility] Last Admin: 07/07/21 00:38 Dose: Not Given Documented by: DEONTE Non-Admin Reason: No Access Thiamine HCl (Thiamine Hcl 100 Mg Tablet) 100 mg PO DAILY [facility] Last Admin: 07/06/21 09:40 Dose: 100 mg Documented by: KARLEY Trazodone HCl (Trazodone Hcl 25 Mg Halftab) 25 mg PO BEDTIME [facility] Last Admin: 07/06/21 19:50 Dose: 25 mg Documented by: BEIT Labs CBC & Chem 7: 06/12/21 05:12 06/12/21 05:12 Assessment and Plan (1) Dementia with behavioral disturbance: Status: Acute Assessment and Plan: hospital d#40 75 yo M who presented to the ED on 05/23/21 for AMS and failure to thrive. He was initially going to be placed at a facility, but on 05/29 was noted to have cough and a CXR revealed a new R base infiltrate concerning for aspiration pneumonia has completed Abx course and now awaiting placement No Acute issues Dementia with behavioral disturbances Alert and interactive Continue medications per psych Evaluated by psych -- does not have capacity Aspiration Pneumonia completed treatment Diet -- nectar thick and Ground/mech alerted Suspected scabies treated with Permethrin x 2 doses Stage 2 pressure ucler (L heel / M medial heel) - present on admission Stage 1 bilateral buttock - present on admission seen by department clinician with following instructions: Woundres Gel for the heel + Foam dressing Barrier cream Continue other usual decub preacutions -- nutrition + air loss bed + nutrition (on supplements), etc Dispo: Placement pending, guardianship guaranteed by court but CM still waiting paperwork Quality Stroke Does the patient have a stroke diagnosis?: No VTE Prior VTE?: No VTE Risk Level:: Medical - moderate - high VTE Device Contraindication: N/A - Device Ordered VTE Drug Contraindication: N/A - Med Ordered
[2021-07-07] MEDS: Sennosides 8.6 MG TABLET PO (09:48)
[2021-07-07] MEDS: Folic Acid 1 MG TABLET PO (09:48)
[2021-07-07] MEDS: Heparin Sodium,Porcine 5,000 UNIT/ML VIAL 5000 UNIT SUBCUT ×2 (09:48→20:48)
[2021-07-07] MEDS: Thiamine HCL 100 MG TABLET PO (09:48)
[2021-07-07 16:00] VITALS: BP 134/63; PULSE 80; RESP 16; TEMP 36.7; O2SAT 98
[2021-07-07] MEDS: traZODone HCL 25 MG HALFTAB PO (20:47)
[2021-07-07] MEDS: OLANZapine 5 MG TABLET PO (20:47)
[2021-07-07 23:14] VITALS: BP 120/67; PULSE 81; RESP 18; TEMP 36.6; O2SAT 95
[2021-07-08] MEDS: Omeprazole 20 MG CAPSULE.DR PO (07:54)
[2021-07-08] MEDS: Folic Acid 1 MG TABLET PO (07:55)
[2021-07-08] MEDS: Thiamine HCL 100 MG TABLET PO (07:55)
[2021-07-08] MEDS: Sennosides 8.6 MG TABLET PO (07:55)
[2021-07-08] MEDS: Heparin Sodium,Porcine 5,000 UNIT/ML VIAL 5000 UNIT SUBCUT ×2 (07:55→20:44)
[2021-07-08 08:00] VITALS: BP 133/75; PULSE 63; RESP 18; TEMP 36.6; O2SAT 94
--- NOTE | 2021-07-08 09:59 | P.PNIM_ITS ---
Subjective Subjective Date of Service: 07/08/21 Interval History: no complaints Cardiovascular Cardiovascular: Reports no additional cardiovascular complaints Respiratory Respiratory: Reports no additional respiratory complaints Physical Exam Vital Signs: Vital Signs: Last Vital Signs Temp 97.9 F 07/08/21 08:00 Pulse 63 07/08/21 08:00 Resp 18 07/08/21 08:00 BP 133/75 07/08/21 08:00 Pulse Ox 94 07/08/21 08:00 BMI result Body Mass Index 21.1 Other:?Constitutional : Alert, disoriented, not in distress Neck : Normal inspection, Supple Respiratory :? Chest moving bilaterally, no respiratory distress Neurological : Alert & disoriented, No focal deficit Objective Data Active Medications Acetaminophen (Acetaminophen 325 Mg Tablet) 650 mg PO Q4H PRN PRN Reason: mild pain Last Admin: 06/23/21 13:39 Dose: 650 mg Documented by: CHARLES Folic Acid (Folic Acid 1 Mg Tablet) 1 mg PO DAILY [facility] Last Admin: 07/08/21 07:55 Dose: 1 mg Documented by: ELIO Heparin Sodium (Porcine) (Heparin Sodium,Porcine 5,000 Unit/Ml Vial) 5,000 unit SUBCUT Q12H [facility] Last Admin: 07/08/21 07:55 Dose: 5,000 unit Documented by: ELIO Hydroxyzine HCl (Hydroxyzine Hcl 50 Mg/Ml Vial) 25 mg IM Q6H PRN PRN Reason: anxiety/restlessness Last Admin: 07/06/21 21:45 Dose: 25 mg Documented by: KELSEY Olanzapine (Olanzapine 5 Mg Tablet) 5 mg PO BEDTIME [facility] Last Admin: 07/07/21 20:47 Dose: 5 mg Documented by: DEMI Omeprazole (Omeprazole 20 Mg Capsule.Dr) 20 mg PO DAILY@0630 [facility] Last Admin: 07/08/21 07:54 Dose: 20 mg Documented by: ELIO Pharmacy Consult (Consult Rx Perform Med Rec) 1 each MISCELLANE ONCE PRN PRN Reason: Consult order Senna (Sennosides 8.6 Mg Tablet) 8.6 mg PO DAILY [facility] Last Admin: 07/08/21 07:55 Dose: 8.6 mg Documented by: ELIO Sodium Chloride (0.9 % Sodium Chloride Flush 3 Ml Syringe) 3 ml IVFLUSH QSHIFT [facility] Last Admin: 07/08/21 08:04 Dose: Not Given Documented by: ELIO Non-Admin Reason: No Access Thiamine HCl (Thiamine Hcl 100 Mg Tablet) 100 mg PO DAILY [facility] Last Admin: 07/08/21 07:55 Dose: 100 mg Documented by: ELIO Trazodone HCl (Trazodone Hcl 25 Mg Halftab) 25 mg PO BEDTIME [facility] Last Admin: 07/07/21 20:47 Dose: 25 mg Documented by: DEMI Labs CBC & Chem 7: 06/12/21 05:12 06/12/21 05:12 Assessment and Plan (1) Dementia with behavioral disturbance: Status: Acute Assessment and Plan: hospital d#41 75 yo M who presented to the ED on 05/23/21 for AMS and failure to thrive. He was initially going to be placed at a facility, but on 05/29 was noted to have cough and a CXR revealed a new R base infiltrate concerning for aspiration pneumonia has completed Abx course and now awaiting placement No Acute issues Dementia with behavioral disturbances Alert and interactive Continue medications per psych Evaluated by psych -- does not have capacity Aspiration Pneumonia completed treatment Diet -- nectar thick and Ground/mech alerted Suspected scabies treated with Permethrin x 2 doses Stage 2 pressure ucler (L heel / M medial heel) - present on admission Stage 1 bilateral buttock - present on admission seen by bean sorter with following instructions: Woundres Gel for the heel + Foam dressing Barrier cream Continue other usual decub preacutions -- nutrition + air loss bed + nutrition (on supplements), etc Dispo: Placement pending, guardianship guaranteed by court but CM still waiting paperwork Quality Stroke Does the patient have a stroke diagnosis?: No VTE Prior VTE?: No VTE Risk Level:: Medical - moderate - high VTE Device Contraindication: N/A - Device Ordered VTE Drug Contraindication: N/A - Med Ordered
[2021-07-08 15:59] VITALS: BP 138/63; PULSE 52; RESP 18; TEMP 36; O2SAT 96
[2021-07-08] MEDS: traZODone HCL 25 MG HALFTAB PO (20:44)
[2021-07-08] MEDS: OLANZapine 5 MG TABLET PO (20:44)
[2021-07-08 23:43] VITALS: BP 117/58; PULSE 60; RESP 18; TEMP 36.6; O2SAT 96
[2021-07-09] MEDS: Omeprazole 20 MG CAPSULE.DR PO (06:31)
[2021-07-09 08:00] VITALS: BP 154/82; PULSE 72; RESP 17; TEMP 36.7; O2SAT 98
[2021-07-09] MEDS: Heparin Sodium,Porcine 5,000 UNIT/ML VIAL 5000 UNIT SUBCUT ×2 (08:56→21:36)
[2021-07-09] MEDS: Thiamine HCL 100 MG TABLET PO (08:57)
[2021-07-09] MEDS: Folic Acid 1 MG TABLET PO (08:57)
[2021-07-09] MEDS: Sennosides 8.6 MG TABLET PO (08:57)
--- NOTE | 2021-07-09 09:21 | HO.PM.IMPN ---
Subjective Subjective Date of Service: 07/09/21 Interval History: no complaints Cardiovascular Cardiovascular: Reports no additional cardiovascular complaints Respiratory Respiratory: Reports no additional respiratory complaints Physical Exam Vital Signs: Vital Signs: Last Vital Signs Temp 98.0 F 07/09/21 08:00 Pulse 72 07/09/21 08:00 Resp 17 07/09/21 08:00 BP 154/82 H 07/09/21 08:00 Pulse Ox 98 07/09/21 08:00 BMI result Body Mass Index 21.1 Other:?Constitutional : Alert, disoriented, not in distress Neck : Normal inspection, Supple Respiratory :? Chest moving bilaterally, no respiratory distress Neurological : Alert & disoriented, No focal deficit Objective Data Active Medications Acetaminophen (Acetaminophen 325 Mg Tablet) 650 mg PO Q4H PRN PRN Reason: mild pain Last Admin: 06/23/21 13:39 Dose: 650 mg Documented by: CHARLES Folic Acid (Folic Acid 1 Mg Tablet) 1 mg PO DAILY [facility] Last Admin: 07/09/21 08:57 Dose: 1 mg Documented by: JULIANEMA Heparin Sodium (Porcine) (Heparin Sodium,Porcine 5,000 Unit/Ml Vial) 5,000 unit SUBCUT Q12H [facility] Last Admin: 07/09/21 08:56 Dose: 5,000 unit Documented by: COTEMA Hydroxyzine HCl (Hydroxyzine Hcl 50 Mg/Ml Vial) 25 mg IM Q6H PRN PRN Reason: anxiety/restlessness Last Admin: 07/06/21 21:45 Dose: 25 mg Documented by: KELSEY Olanzapine (Olanzapine 5 Mg Tablet) 5 mg PO BEDTIME [facility] Last Admin: 07/08/21 20:44 Dose: 5 mg Documented by: MARY Omeprazole (Omeprazole 20 Mg Capsule.Dr) 20 mg PO DAILY@0630 [facility] Last Admin: 07/09/21 06:31 Dose: 20 mg Documented by: MARY Pharmacy Consult (Consult Rx Perform Med Rec) 1 each MISCELLANE ONCE PRN PRN Reason: Consult order Senna (Sennosides 8.6 Mg Tablet) 8.6 mg PO DAILY [facility] Last Admin: 07/09/21 08:57 Dose: 8.6 mg Documented by: COTEMA Sodium Chloride (0.9 % Sodium Chloride Flush 3 Ml Syringe) 3 ml IVFLUSH QSHIFT [facility] Last Admin: 07/09/21 07:32 Dose: Not Given Documented by: COTEMA Non-Admin Reason: No Access Thiamine HCl (Thiamine Hcl 100 Mg Tablet) 100 mg PO DAILY [facility] Last Admin: 07/09/21 08:57 Dose: 100 mg Documented by: COTEMA Trazodone HCl (Trazodone Hcl 25 Mg Halftab) 25 mg PO BEDTIME [facility] Last Admin: 07/08/21 20:44 Dose: 25 mg Documented by: SEXK Labs CBC & Chem 7: 06/12/21 05:12 06/12/21 05:12 Assessment and Plan (1) Dementia with behavioral disturbance: Status: Acute Assessment and Plan: hospital d#42 75 yo M who presented to the ED on 05/23/21 for AMS and failure to thrive. He was initially going to be placed at a facility, but on 05/29 was noted to have cough and a CXR revealed a new R base infiltrate concerning for aspiration pneumonia has completed Abx course and now awaiting placement No Acute issues Dementia with behavioral disturbances Alert and interactive Continue medications per psych Evaluated by psych -- does not have capacity Aspiration Pneumonia completed treatment Diet -- nectar thick and Ground/mech alerted Suspected scabies treated with Permethrin x 2 doses Stage 2 pressure ucler (L heel / M medial heel) - present on admission Stage 1 bilateral buttock - present on admission seen by rn community with following instructions: Woundres Gel for the heel + Foam dressing Barrier cream Continue other usual decub preacutions -- nutrition + air loss bed + nutrition (on supplements), etc Dispo: Placement pending, guardianship guaranteed by court but CM still waiting paperwork Quality Stroke Does the patient have a stroke diagnosis?: No VTE Prior VTE?: No VTE Risk Level:: Medical - moderate - high VTE Device Contraindication: N/A - Device Ordered VTE Drug Contraindication: N/A - Med Ordered
--- NOTE | 2021-07-09 13:48 | MHC.CLN ---
F/U DIET=2 GRAM SODIUM, NDD2, THIN LIQUIDS; SUPPLEMENT ENSURE TID (1050 KCAL, 39 G PROTEIN). WOUNDS: STAGE I BILATERAL BUTTOCKS, STAGE II LEFT HEEL. CONTINUE ENSURE TID (1050 KCAL, 39 G PROTEIN). INTAKE AT MEALS USUALLY VERY GOOD WITH MANY 100%. RD TO FOLLOW WEEKLY.
[2021-07-09 16:00] VITALS: BP 135/84; PULSE 71; RESP 17; TEMP 36.6; O2SAT 98
[2021-07-09] MEDS: OLANZapine 5 MG TABLET PO (21:36)
[2021-07-09] MEDS: traZODone HCL 25 MG HALFTAB PO (21:36)
[2021-07-10 04:04] VITALS: BP 132/70; PULSE 65; RESP 18; TEMP 36.4; O2SAT 96
[2021-07-10] MEDS: Omeprazole 20 MG CAPSULE.DR PO (06:23)
[2021-07-10] MEDS: Folic Acid 1 MG TABLET PO (07:00)
[2021-07-10] MEDS: Sennosides 8.6 MG TABLET PO (07:00)
[2021-07-10] MEDS: Thiamine HCL 100 MG TABLET PO (07:01)
[2021-07-10] MEDS: Heparin Sodium,Porcine 5,000 UNIT/ML VIAL 5000 UNIT SUBCUT ×2 (07:01→19:41)
[2021-07-10 07:50] VITALS: BP 145/76; PULSE 57; RESP 17; TEMP 36.2; O2SAT 97
--- NOTE | 2021-07-10 09:46 | HO.PM.IMPN ---
Subjective Subjective Date of Service: 07/10/21 Interval History: no complaints Cardiovascular Cardiovascular: Reports no additional cardiovascular complaints Respiratory Respiratory: Reports no additional respiratory complaints Physical Exam Vital Signs: Vital Signs: Last Vital Signs Temp 97.1 F 07/10/21 07:50 Pulse 57 07/10/21 07:50 Resp 17 07/10/21 07:50 BP 145/76 H 07/10/21 07:50 Pulse Ox 97 07/10/21 07:50 BMI result Body Mass Index 21.1 Other:?Constitutional : Alert, disoriented, not in distress Neck : Normal inspection, Supple Respiratory :? Chest moving bilaterally, no respiratory distress Neurological : Alert & disoriented, No focal deficit Objective Data Active Medications Acetaminophen (Acetaminophen 325 Mg Tablet) 650 mg PO Q4H PRN PRN Reason: mild pain Last Admin: 06/23/21 13:39 Dose: 650 mg Documented by: CHARLES Folic Acid (Folic Acid 1 Mg Tablet) 1 mg PO DAILY [facility] Last Admin: 07/10/21 07:00 Dose: 1 mg Documented by: KARINA Heparin Sodium (Porcine) (Heparin Sodium,Porcine 5,000 Unit/Ml Vial) 5,000 unit SUBCUT Q12H [facility] Last Admin: 07/10/21 07:01 Dose: 5,000 unit Documented by: KARINA Hydroxyzine HCl (Hydroxyzine Hcl 50 Mg/Ml Vial) 25 mg IM Q6H PRN PRN Reason: anxiety/restlessness Last Admin: 07/06/21 21:45 Dose: 25 mg Documented by: KELSEY Olanzapine (Olanzapine 5 Mg Tablet) 5 mg PO BEDTIME [facility] Last Admin: 07/09/21 21:36 Dose: 5 mg Documented by: JOSIAH Omeprazole (Omeprazole 20 Mg Capsule.) 20 mg PO DAILY@0630 [facility] Last Admin: 07/10/21 06:23 Dose: 20 mg Documented by: JOSIAH Pharmacy Consult (Consult Rx Perform Med Rec) 1 each MISCELLANE ONCE PRN PRN Reason: Consult order Senna (Sennosides 8.6 Mg Tablet) 8.6 mg PO DAILY [facility] Last Admin: 07/10/21 07:00 Dose: 8.6 mg Documented by: KARINA Sodium Chloride (0.9 % Sodium Chloride Flush 3 Ml Syringe) 3 ml IVFLUSH QSHIFT [facility] Last Admin: 07/10/21 07:06 Dose: Not Given Documented by: KARINA Non-Admin Reason: No Access Thiamine HCl (Thiamine Hcl 100 Mg Tablet) 100 mg PO DAILY [facility] Last Admin: 07/10/21 07:01 Dose: 100 mg Documented by: KARINA Trazodone HCl (Trazodone Hcl 25 Mg Halftab) 25 mg PO BEDTIME [facility] Last Admin: 07/09/21 21:36 Dose: 25 mg Documented by: ALESIAASY Labs CBC & Chem 7: 06/12/21 05:12 06/12/21 05:12 Assessment and Plan (1) Dementia with behavioral disturbance: Status: Acute Assessment and Plan: hospital d#43 75 yo M who presented to the ED on 05/23/21 for AMS and failure to thrive. He was initially going to be placed at a facility, but on 05/29 was noted to have cough and a CXR revealed a new R base infiltrate concerning for aspiration pneumonia has completed Abx course and now awaiting placement No Acute issues Dementia with behavioral disturbances Alert and interactive Continue medications per psych Evaluated by psych -- does not have capacity Aspiration Pneumonia completed treatment Diet -- nectar thick and Ground/mech alerted Suspected scabies treated with Permethrin x 2 doses Stage 2 pressure ucler (L heel / M medial heel) - present on admission Stage 1 bilateral buttock - present on admission seen by oleo hasher and renderer with following instructions: Woundres Gel for the heel + Foam dressing Barrier cream Continue other usual decub preacutions -- nutrition + air loss bed + nutrition (on supplements), etc Dispo: Placement pending, guardianship guaranteed by court but CM still waiting paperwork Quality Stroke Does the patient have a stroke diagnosis?: No VTE Prior VTE?: No VTE Risk Level:: Medical - moderate - high VTE Device Contraindication: N/A - Device Ordered VTE Drug Contraindication: N/A - Med Ordered
[2021-07-10 16:00] VITALS: BP 140/60; PULSE 64; RESP 16; TEMP 35.9; O2SAT 98
[2021-07-10] MEDS: OLANZapine 5 MG TABLET PO (19:45)
[2021-07-10] MEDS: traZODone HCL 25 MG HALFTAB PO (19:45)
[2021-07-11] VITALS: BP 143/70; PULSE 59; RESP 18; TEMP 36.6; O2SAT 98
[2021-07-11] MEDS: Omeprazole 20 MG CAPSULE.DR PO (06:01)
[2021-07-11 07:42] VITALS: BP 148/84; PULSE 65; RESP 17; TEMP 36.1; O2SAT 96
[2021-07-11] MEDS: Thiamine HCL 100 MG TABLET PO (07:55)
[2021-07-11] MEDS: Folic Acid 1 MG TABLET PO (07:55)
[2021-07-11] MEDS: Heparin Sodium,Porcine 5,000 UNIT/ML VIAL 5000 UNIT SUBCUT ×2 (07:56→20:56)
--- NOTE | 2021-07-11 10:37 | HO.PM.IMPN ---
Subjective Subjective Date of Service: 07/11/21 Interval History: Sitting in his chair, having breakfast No reported other overnight events. Systemic review: No fever, chills or weakness No chest pain, palpitation No shortness of breath or coughing No abdominal pain, nausea or vomiting Physical Exam Vital Signs: Vital Signs: Last Vital Signs Temp 97.0 F 07/11/21 07:42 Pulse 65 07/11/21 07:42 Resp 17 07/11/21 07:42 BP 148/84 H 07/11/21 07:42 Pulse Ox 96 07/11/21 07:42 BMI result Body Mass Index 21.1 Const: Other: Constitutional : Alert, disoriented, not in distress Neck : Normal inspection, Supple Respiratory : Chest moving bilaterally, no respiratory distress Neurological : Alert & disoriented, No focal deficit Objective Data Active Medications Acetaminophen (Acetaminophen 325 Mg Tablet) 650 mg PO Q4H PRN PRN Reason: mild pain Last Admin: 06/23/21 13:39 Dose: 650 mg Documented by: CHARLES Folic Acid (Folic Acid 1 Mg Tablet) 1 mg PO DAILY [facility] Last Admin: 07/11/21 07:55 Dose: 1 mg Documented by: KARINA Heparin Sodium (Porcine) (Heparin Sodium,Porcine 5,000 Unit/Ml Vial) 5,000 unit SUBCUT Q12H [facility] Last Admin: 07/11/21 07:56 Dose: 5,000 unit Documented by: KARINA Hydroxyzine HCl (Hydroxyzine Hcl 50 Mg/Ml Vial) 25 mg IM Q6H PRN PRN Reason: anxiety/restlessness Last Admin: 07/06/21 21:45 Dose: 25 mg Documented by: KELSEY Olanzapine (Olanzapine 5 Mg Tablet) 5 mg PO BEDTIME [facility] Last Admin: 07/10/21 19:45 Dose: 5 mg Documented by: GIL Omeprazole (Omeprazole 20 Mg Capsule.Dr) 20 mg PO DAILY@0630 [facility] Last Admin: 07/11/21 06:01 Dose: 20 mg Documented by: GIL Pharmacy Consult (Consult Rx Perform Med Rec) 1 each MISCELLANE ONCE PRN PRN Reason: Consult order Senna (Sennosides 8.6 Mg Tablet) 8.6 mg PO DAILY [facility] Last Admin: 07/11/21 07:55 Dose: Not Given Documented by: KARINA Non-Admin Reason: loose stools Sodium Chloride (0.9 % Sodium Chloride Flush 3 Ml Syringe) 3 ml IVFLUSH QSHIFT [facility] Last Admin: 07/11/21 06:59 Dose: Not Given Documented by: KARINA Non-Admin Reason: No Access Thiamine HCl (Thiamine Hcl 100 Mg Tablet) 100 mg PO DAILY [facility] Last Admin: 07/11/21 07:55 Dose: 100 mg Documented by: KARINA Trazodone HCl (Trazodone Hcl 25 Mg Halftab) 25 mg PO BEDTIME [facility] Last Admin: 07/10/21 19:45 Dose: 25 mg Documented by: GIL Labs CBC & Chem 7: 06/12/21 05:12 06/12/21 05:12 Assessment and Plan (1) Dementia with behavioral disturbance: Status: Acute Assessment and Plan: hospital d#44 75 yo M who presented to the ED on 05/23/21 for AMS and failure to thrive. He was initially going to be placed at a facility, but on 05/29 was noted to have cough and a CXR revealed a new R base infiltrate concerning for aspiration pneumonia has completed Abx course and now awaiting placement No Acute issues Dementia with behavioral disturbances Alert and interactive Continue medications per psych Evaluated by psych -- does not have capacity Aspiration Pneumonia completed treatment Diet -- nectar thick and Ground/mech alerted Suspected scabies treated with Permethrin x 2 doses Stage 2 pressure ucler (L heel / M medial heel) - present on admission Stage 1 bilateral buttock - present on admission seen by forest examiner with following instructions: Woundres Gel for the heel + Foam dressing Barrier cream Continue other usual decub preacutions -- nutrition + air loss bed + nutrition (on supplements), etc Dispo: Placement pending, guardianship guaranteed by court but CM still waiting paperwork Quality Stroke Does the patient have a stroke diagnosis?: No VTE Prior VTE?: No VTE Risk Level:: Medical - moderate - high VTE Device Contraindication: N/A - Device Ordered VTE Drug Contraindication: N/A - Med Ordered
--- NOTE | 2021-07-11 11:31 | MHC.CM.PN ---
LTC remains the goal, pending resolution of financial barriers (need LTC [facility]). CM Administration is involved.
[2021-07-11 15:07] VITALS: BP 126/62; PULSE 54; RESP 18; TEMP 37; O2SAT 95
[2021-07-11] MEDS: traZODone HCL 25 MG HALFTAB PO (20:57)
[2021-07-11] MEDS: OLANZapine 5 MG TABLET PO (20:57)
[2021-07-12] VITALS: BP 130/64; PULSE 62; RESP 17; TEMP 36.9; O2SAT 96
[2021-07-12] MEDS: Omeprazole 20 MG CAPSULE.DR PO (05:29)
[2021-07-12 08:00] VITALS: BP 142/61; PULSE 58; RESP 18; TEMP 36.6; O2SAT 97
--- NOTE | 2021-07-12 09:37 | P.PNIM_ITS ---
Subjective Subjective Date of Service: 07/12/21 Interval History: Sitting in his chair, having breakfast No reported other overnight events. Systemic review: No fever, chills or weakness No chest pain, palpitation No shortness of breath or coughing No abdominal pain, nausea or vomiting Physical Exam Vital Signs: Vital Signs: Last Vital Signs Temp 97.9 F 07/12/21 08:00 Pulse 58 07/12/21 08:00 Resp 18 07/12/21 08:00 BP 142/61 H 07/12/21 08:00 Pulse Ox 97 07/12/21 08:00 BMI result Body Mass Index 21.1 Const: Other: Constitutional : Alert, disoriented, not in distress Neck : Normal inspection, Supple Respiratory : Chest moving bilaterally, no respiratory distress Neurological : Alert & disoriented, No focal deficit Objective Data Active Medications Acetaminophen (Acetaminophen 325 Mg Tablet) 650 mg PO Q4H PRN PRN Reason: mild pain Last Admin: 06/23/21 13:39 Dose: 650 mg Documented by: CHARLES Folic Acid (Folic Acid 1 Mg Tablet) 1 mg PO DAILY [facility] Last Admin: 07/11/21 07:55 Dose: 1 mg Documented by: KARINA Heparin Sodium (Porcine) (Heparin Sodium,Porcine 5,000 Unit/Ml Vial) 5,000 unit SUBCUT Q12H [facility] Last Admin: 07/11/21 20:56 Dose: 5,000 unit Documented by: MELODY Hydroxyzine HCl (Hydroxyzine Hcl 50 Mg/Ml Vial) 25 mg IM Q6H PRN PRN Reason: anxiety/restlessness Last Admin: 07/06/21 21:45 Dose: 25 mg Documented by: KELSEY Olanzapine (Olanzapine 5 Mg Tablet) 5 mg PO BEDTIME [facility] Last Admin: 07/11/21 20:57 Dose: 5 mg Documented by: MELODY Omeprazole (Omeprazole 20 Mg Capsule.Dr) 20 mg PO DAILY@0630 [facility] Last Admin: 07/12/21 05:29 Dose: 20 mg Documented by: MELODY Pharmacy Consult (Consult Rx Perform Med Rec) 1 each MISCELLANE ONCE PRN PRN Reason: Consult order Senna (Sennosides 8.6 Mg Tablet) 8.6 mg PO DAILY [facility] Last Admin: 07/11/21 07:55 Dose: Not Given Documented by: KARINA Non-Admin Reason: loose stools Sodium Chloride (0.9 % Sodium Chloride Flush 3 Ml Syringe) 3 ml IVFLUSH QSHIFT [facility] Last Admin: 07/11/21 21:00 Dose: Not Given Documented by: MELODY Non-Admin Reason: No Access Thiamine HCl (Thiamine Hcl 100 Mg Tablet) 100 mg PO DAILY [facility] Last Admin: 07/11/21 07:55 Dose: 100 mg Documented by: KARINA Trazodone HCl (Trazodone Hcl 25 Mg Halftab) 25 mg PO BEDTIME [facility] Last Admin: 07/11/21 20:57 Dose: 25 mg Documented by: MELODY Labs CBC & Chem 7: 06/12/21 05:12 06/12/21 05:12 Assessment and Plan (1) Dementia with behavioral disturbance: Status: Acute Assessment and Plan: hospital d#45 75 yo M who presented to the ED on 05/23/21 for AMS and failure to thrive. He was initially going to be placed at a facility, but on 05/29 was noted to have cough and a CXR revealed a new R base infiltrate concerning for aspiration pneumonia has completed Abx course and now awaiting placement No Acute issues Dementia with behavioral disturbances Alert and interactive Continue medications per psych Evaluated by psych -- does not have capacity Aspiration Pneumonia completed treatment Diet -- nectar thick and Ground/mech alerted Suspected scabies treated with Permethrin x 2 doses Stage 2 pressure ucler (L heel / M medial heel) - present on admission Stage 1 bilateral buttock - present on admission seen by aerospace control and warning systems with following instructions: Woundres Gel for the heel + Foam dressing Barrier cream Continue other usual decub preacutions -- nutrition + air loss bed + nutrition (on supplements), etc Dispo: Placement pending, guardianship guaranteed by court but CM still waiting paperwork Quality Stroke Does the patient have a stroke diagnosis?: No VTE Prior VTE?: No VTE Risk Level:: Medical - moderate - high VTE Device Contraindication: N/A - Device Ordered VTE Drug Contraindication: N/A - Med Ordered
[2021-07-12] MEDS: Thiamine HCL 100 MG TABLET PO (09:40)
[2021-07-12] MEDS: Folic Acid 1 MG TABLET PO (09:41)
[2021-07-12] MEDS: Sennosides 8.6 MG TABLET PO (09:41)
[2021-07-12] MEDS: Heparin Sodium,Porcine 5,000 UNIT/ML VIAL 5000 UNIT SUBCUT ×2 (09:41→20:02)
[2021-07-12 15:35] VITALS: BP 144/63; PULSE 71; RESP 18; TEMP 36.5; O2SAT 96
[2021-07-12] MEDS: traZODone HCL 25 MG HALFTAB PO (19:22)
[2021-07-12] MEDS: OLANZapine 5 MG TABLET PO (19:22)
[2021-07-13 07:19] VITALS: BP 129/72; PULSE 58; RESP 18; TEMP 36.7; O2SAT 97
[2021-07-13] MEDS: Sennosides 8.6 MG TABLET PO (10:08)
[2021-07-13] MEDS: Heparin Sodium,Porcine 5,000 UNIT/ML VIAL 5000 UNIT SUBCUT ×2 (10:08→19:45)
[2021-07-13] MEDS: Thiamine HCL 100 MG TABLET PO (10:08)
[2021-07-13] MEDS: Folic Acid 1 MG TABLET PO (10:08)
--- NOTE | 2021-07-13 10:33 | P.PNIM_ITS ---
Subjective Subjective Date of Service: 07/13/21 Interval History: Sitting in his chair, comfortable, not in distress No reported other overnight events. Systemic review: No fever, chills or weakness No chest pain, palpitation No shortness of breath or coughing No abdominal pain, nausea or vomiting Physical Exam Vital Signs: Vital Signs: Last Vital Signs Temp 98.0 F 07/13/21 07:19 Pulse 58 07/13/21 07:19 Resp 18 07/13/21 07:19 BP 129/72 07/13/21 07:19 Pulse Ox 97 07/13/21 07:19 BMI result Body Mass Index 21.1 Const: Other: Constitutional : Alert, disoriented, not in distress Neck : Normal inspection, Supple Respiratory : Chest moving bilaterally, no respiratory distress Neurological : Alert & disoriented, No focal deficit Objective Data Active Medications Acetaminophen (Acetaminophen 325 Mg Tablet) 650 mg PO Q4H PRN PRN Reason: mild pain Last Admin: 06/23/21 13:39 Dose: 650 mg Documented by: CHARLES Folic Acid (Folic Acid 1 Mg Tablet) 1 mg PO DAILY [facility] Last Admin: 07/13/21 10:08 Dose: 1 mg Documented by: DANITA Heparin Sodium (Porcine) (Heparin Sodium,Porcine 5,000 Unit/Ml Vial) 5,000 unit SUBCUT Q12H [facility] Last Admin: 07/13/21 10:08 Dose: 5,000 unit Documented by: DANITA Hydroxyzine HCl (Hydroxyzine Hcl 50 Mg/Ml Vial) 25 mg IM Q6H PRN PRN Reason: anxiety/restlessness Last Admin: 07/06/21 21:45 Dose: 25 mg Documented by: KELSEY Olanzapine (Olanzapine 5 Mg Tablet) 5 mg PO BEDTIME [facility] Last Admin: 07/12/21 19:22 Dose: 5 mg Documented by: MELODY Omeprazole (Omeprazole 20 Mg Capsule.Dr) 20 mg PO DAILY@0630 [facility] Last Admin: 07/13/21 05:27 Dose: Not Given Documented by: MELODY Non-Admin Reason: Patient Refused Pharmacy Consult (Consult Rx Perform Med Rec) 1 each MISCELLANE ONCE PRN PRN Reason: Consult order Senna (Sennosides 8.6 Mg Tablet) 8.6 mg PO DAILY [facility] Last Admin: 07/13/21 10:08 Dose: 8.6 mg Documented by: DANITA Sodium Chloride (0.9 % Sodium Chloride Flush 3 Ml Syringe) 3 ml IVFLUSH QSHIFT [facility] Last Admin: 07/13/21 10:10 Dose: Not Given Documented by: DANITA Non-Admin Reason: No Access Thiamine HCl (Thiamine Hcl 100 Mg Tablet) 100 mg PO DAILY [facility] Last Admin: 07/13/21 10:08 Dose: 100 mg Documented by: DANITA Trazodone HCl (Trazodone Hcl 25 Mg Halftab) 25 mg PO BEDTIME [facility] Last Admin: 07/12/21 19:22 Dose: 25 mg Documented by: MELODY Labs CBC & Chem 7: 06/12/21 05:12 06/12/21 05:12 Assessment and Plan (1) Dementia with behavioral disturbance: Status: Acute Assessment and Plan: hospital d#46 75 yo M who presented to the ED on 05/23/21 for AMS and failure to thrive. He was initially going to be placed at a facility, but on 05/29 was noted to have cough and a CXR revealed a new R base infiltrate concerning for aspiration pneu joey has completed Abx course and now awaiting placement No Acute issues Dementia with behavioral disturbances Alert and interactive Continue medications per psych Evaluated by psych -- does not have capacity Aspiration Pneumonia completed treatment Diet -- nectar thick and Ground/mech alerted Suspected scabies treated with Permethrin x 2 doses Stage 2 pressure ucler (L heel / M medial heel) - present on admission Stage 1 bilateral buttock - present on admission seen by resource conservation manager with following instructions: Woundres Gel for the heel + Foam dressing Barrier cream Continue other usual decub preacutions -- nutrition + air loss bed + nutrition (on supplements), etc Dispo: Placement pending, guardianship guaranteed by court but CM still waiting paperwork Quality Stroke Does the patient have a stroke diagnosis?: No VTE Prior VTE?: No VTE Risk Level:: Medical - moderate - high VTE Device Contraindication: N/A - Device Ordered VTE Drug Contraindication: N/A - Med Ordered
[2021-07-13 15:24] VITALS: BP 144/63; PULSE 70; RESP 17; TEMP 36.8; O2SAT 97
[2021-07-13] MEDS: traZODone HCL 25 MG HALFTAB PO (19:45)
[2021-07-13] MEDS: OLANZapine 5 MG TABLET PO (19:45)
[2021-07-13] MEDS: hydrOXYzine HCL 50 MG/ML VIAL 25 MG IM (21:01)
[2021-07-13 23:39] VITALS: BP 158/68; PULSE 67; RESP 18; TEMP 36.6; O2SAT 98
[2021-07-14 07:22] VITALS: BP 117/58; PULSE 52; RESP 18; TEMP 36.5; O2SAT 97
--- NOTE | 2021-07-14 09:31 | HO.PM.IMPN ---
Subjective Subjective Date of Service: 07/14/21 Interval History: Laying in his bed, comfortable, not in distress No reported other overnight events. Systemic review: No fever, chills or weakness No chest pain, palpitation No shortness of breath or coughing No abdominal pain, nausea or vomiting Physical Exam Vital Signs: Vital Signs: Last Vital Signs Temp 97.7 F 07/14/21 07:22 Pulse 52 07/14/21 07:22 Resp 18 07/14/21 07:22 BP 117/58 L 07/14/21 07:22 Pulse Ox 97 07/14/21 07:22 BMI result Body Mass Index 21.1 Const: Other: Constitutional : Alert, disoriented, not in distress Neck : Normal inspection, Supple Respiratory : Chest moving bilaterally, no respiratory distress Neurological : Alert & disoriented, No focal deficit Objective Data Active Medications Acetaminophen (Acetaminophen 325 Mg Tablet) 650 mg PO Q4H PRN PRN Reason: mild pain Last Admin: 06/23/21 13:39 Dose: 650 mg Documented by: CHARLES Folic Acid (Folic Acid 1 Mg Tablet) 1 mg PO DAILY [facility] Last Admin: 07/13/21 10:08 Dose: 1 mg Documented by: DANITA Heparin Sodium (Porcine) (Heparin Sodium,Porcine 5,000 Unit/Ml Vial) 5,000 unit SUBCUT Q12H [facility] Last Admin: 07/13/21 19:45 Dose: 5,000 unit Documented by: CLARENCE Hydroxyzine HCl (Hydroxyzine Hcl 50 Mg/Ml Vial) 25 mg IM Q6H PRN PRN Reason: anxiety/restlessness Last Admin: 07/13/21 21:01 Dose: 25 mg Documented by: CLARENCE Olanzapine (Olanzapine 5 Mg Tablet) 5 mg PO BEDTIME [facility] Last Admin: 07/13/21 19:45 Dose: 5 mg Documented by: CLARENCE Omeprazole (Omeprazole 20 Mg Capsule.) 20 mg PO DAILY@0630 [facility] Last Admin: 07/14/21 06:08 Dose: Not Given Documented by: CLARENCE Non-Admin Reason: Patient Refused Pharmacy Consult (Consult Rx Perform Med Rec) 1 each MISCELLANE ONCE PRN PRN Reason: Consult order Senna (Sennosides 8.6 Mg Tablet) 8.6 mg PO DAILY [facility] Last Admin: 07/13/21 10:08 Dose: 8.6 mg Documented by: DANITA Sodium Chloride (0.9 % Sodium Chloride Flush 3 Ml Syringe) 3 ml IVFLUSH QSHIFT [facility] Last Admin: 07/13/21 21:07 Dose: Not Given Documented by: CLARENCE Non-Admin Reason: No Access Thiamine HCl (Thiamine Hcl 100 Mg Tablet) 100 mg PO DAILY [facility] Last Admin: 07/13/21 10:08 Dose: 100 mg Documented by: DANITA Trazodone HCl (Trazodone Hcl 25 Mg Halftab) 25 mg PO BEDTIME [facility] Last Admin: 07/13/21 19:45 Dose: 25 mg Documented by: CLARENCE Labs CBC & Chem 7: 06/12/21 05:12 06/12/21 05:12 Assessment and Plan (1) Dementia with behavioral disturbance: Status: Acute Assessment and Plan: hospital d#47 75 yo M who presented to the ED on 05/23/21 for AMS and failure to thrive. He was initially going to be placed at a facility, but on 05/29 was noted to have cough and a CXR revealed a new R base infiltrate concerning for aspiration pneumonia has completed Abx course and now awaiting placement No Acute issues Dementia with behavioral disturbances Alert and interactive Continue medications per psych Evaluated by psych -- does not have capacity Aspiration Pneumonia completed treatment Diet -- nectar thick and Ground/mech alerted Suspected scabies treated with Permethrin x 2 doses Stage 2 pressure ucler (L heel / M medial heel) - present on admission Stage 1 bilateral buttock - present on admission seen by shipping and receiving associate with following instructions: Woundres Gel for the heel + Foam dressing Barrier cream Continue other usual decub preacutions -- nutrition + air loss bed + nutrition (on supplements), etc Dispo: Placement pending, guardianship guaranteed by court but CM still waiting paperwork Quality Stroke Does the patient have a stroke diagnosis?: No VTE Prior VTE?: No VTE Risk Level:: Medical - moderate - high VTE Device Contraindication: N/A - Device Ordered VTE Drug Contraindication: N/A - Med Ordered
[2021-07-14] MEDS: Thiamine HCL 100 MG TABLET PO (09:54)
[2021-07-14] MEDS: Folic Acid 1 MG TABLET PO (09:54)
[2021-07-14] MEDS: Sennosides 8.6 MG TABLET PO (09:54)
[2021-07-14] MEDS: Heparin Sodium,Porcine 5,000 UNIT/ML VIAL 5000 UNIT SUBCUT ×2 (09:54→19:53)
[2021-07-14 14:56] VITALS: BP 117/59; PULSE 58; RESP 16; TEMP 36.5; O2SAT 97
[2021-07-14] MEDS: traZODone HCL 25 MG HALFTAB PO (19:52)
[2021-07-14] MEDS: hydrOXYzine HCL 50 MG/ML VIAL 25 MG IM (19:52)
[2021-07-14 23:09] VITALS: BP 136/61; PULSE 40; RESP 20; TEMP 37.1; O2SAT 97
[2021-07-15 07:18] VITALS: BP 132/69; PULSE 42; RESP 18; TEMP 36.7; O2SAT 95
[2021-07-15] MEDS: Heparin Sodium,Porcine 5,000 UNIT/ML VIAL 5000 UNIT SUBCUT ×2 (09:07→21:09)
[2021-07-15] MEDS: Folic Acid 1 MG TABLET PO (09:07)
[2021-07-15] MEDS: Thiamine HCL 100 MG TABLET PO (09:07)
[2021-07-15] MEDS: Acetaminophen 325 MG TABLET 650 MG PO (09:07)
[2021-07-15] MEDS: Omeprazole 20 MG CAPSULE.DR PO (09:07)
[2021-07-15] MEDS: Sennosides 8.6 MG TABLET PO (09:07)
--- NOTE | 2021-07-15 11:42 | HO.PM.IMPN ---
Subjective Subjective Date of Service: 07/15/21 Interval History: Sitting in his chair, having breakfast not in distress No reported other overnight events. Systemic review: No fever, chills or weakness No chest pain, palpitation No shortness of breath or coughing No abdominal pain, nausea or vomiting Physical Exam Vital Signs: Vital Signs: Last Vital Signs Temp 98.1 F 07/15/21 07:18 Pulse 42 L 07/15/21 07:18 Resp 18 07/15/21 07:18 BP 132/69 07/15/21 07:18 Pulse Ox 95 07/15/21 07:18 BMI result Body Mass Index 21.1 Const: Other: Constitutional : Alert, disoriented, not in distress Neck : Normal inspection, Supple Respiratory : Chest moving bilaterally, no respiratory distress Neurological : Alert & disoriented, No focal deficit Objective Data Active Medications Acetaminophen (Acetaminophen 325 Mg Tablet) 650 mg PO Q4H PRN PRN Reason: mild pain Last Admin: 07/15/21 09:07 Dose: 650 mg Documented by: WANDY Folic Acid (Folic Acid 1 Mg Tablet) 1 mg PO DAILY [facility] Last Admin: 07/15/21 09:07 Dose: 1 mg Documented by: JULIANEMA Heparin Sodium (Porcine) (Heparin Sodium,Porcine 5,000 Unit/Ml Vial) 5,000 unit SUBCUT Q12H [facility] Last Admin: 07/15/21 09:07 Dose: 5,000 unit Documented by: COTEMA Hydroxyzine HCl (Hydroxyzine Hcl 50 Mg/Ml Vial) 25 mg IM Q6H PRN PRN Reason: anxiety/restlessness Last Admin: 07/14/21 19:52 Dose: 25 mg Documented by: CLARENCE Olanzapine (Olanzapine 5 Mg Tablet) 5 mg PO BEDTIME [facility] Last Admin: 07/14/21 22:33 Dose: Not Given Documented by: CLARENCE Non-Admin Reason: Patient Refused Omeprazole (Omeprazole 20 Mg Simran.) 20 mg PO DAILY@0630 [facility] Last Admin: 07/15/21 09:07 Dose: 20 mg Documented by: WANDY Pharmacy Consult (Consult Rx Perform Med Rec) 1 each MISCELLANE ONCE PRN PRN Reason: Consult order Senna (Sennosides 8.6 Mg Tablet) 8.6 mg PO DAILY [facility] Last Admin: 07/15/21 09:07 Dose: 8.6 mg Documented by: WANDY Sodium Chloride (0.9 % Sodium Chloride Flush 3 Ml Syringe) 3 ml IVFLUSH QSHIFT [facility] Last Admin: 07/15/21 07:11 Dose: Not Given Documented by: WANDY Non-Admin Reason: No Access Thiamine HCl (Thiamine Hcl 100 Mg Tablet) 100 mg PO DAILY [facility] Last Admin: 07/15/21 09:07 Dose: 100 mg Documented by: COTJAYDA Trazodone HCl (Trazodone Hcl 25 Mg Halftab) 25 mg PO BEDTIME [facility] Last Admin: 07/14/21 19:52 Dose: 25 mg Documented by: CLARENCE Labs CBC & Chem 7: 06/12/21 05:12 06/12/21 05:12 Assessment and Plan (1) Dementia with behavioral disturbance: Status: Acute Assessment and Plan: hospital d#48 75 yo M who presented to the ED on 05/23/21 for AMS and failure to thrive. He was initially going to be placed at a facility, but on 05/29 was noted to have cough and a CXR revealed a new R base infiltrate concerning for aspiration pneumonia has completed Abx course and now awaiting placement No Acute issues Dementia with behavioral disturbances Alert and interactive Continue medications per psych Evaluated by psych -- does not have capacity Aspiration Pneumonia completed treatment Diet -- nectar thick and Ground/mech alerted Suspected scabies treated with Permethrin x 2 doses Stage 2 pressure ucler (L heel / M medial heel) - present on admission Stage 1 bilateral buttock - present on admission seen by breakfast bar attendant with following instructions: Woundres Gel for the heel + Foam dressing Barrier cream Continue other usual decub preacutions -- nutrition + air loss bed + nutrition (on supplements), etc Dispo: Placement pending, guardianship guaranteed by court but CM still waiting paperwork Quality Stroke Does the patient have a stroke diagnosis?: No VTE Prior VTE?: No VTE Risk Level:: Medical - moderate - high VTE Device Contraindication: N/A - Device Ordered VTE Drug Contraindication: N/A - Med Ordered
[2021-07-15 15:13] VITALS: BP 143/55; PULSE 80; RESP 18; TEMP 36.6; O2SAT 98
--- NOTE | 2021-07-15 15:34 | MHC.CM.PN ---
PATIENT IS SCHEDULED FOR FIST COVID VACCINE TOMORROW. NECESSARY PAPERWORK IS ON CHART.
[2021-07-15] MEDS: traZODone HCL 25 MG HALFTAB PO (21:08)
[2021-07-15] MEDS: OLANZapine 5 MG TABLET PO (21:09)
[2021-07-15 23:55] VITALS: BP 115/56; PULSE 60; RESP 18; TEMP 36.4; O2SAT 96
[2021-07-16] MEDS: Omeprazole 20 MG CAPSULE.DR PO (06:42)
[2021-07-16 08:00] VITALS: BP 113/57; PULSE 76; RESP 18; TEMP 36.7; O2SAT 97
[2021-07-16] MEDS: Folic Acid 1 MG TABLET PO (09:28)
[2021-07-16] MEDS: Thiamine HCL 100 MG TABLET PO (09:28)
[2021-07-16] MEDS: Heparin Sodium,Porcine 5,000 UNIT/ML VIAL 5000 UNIT SUBCUT ×2 (09:28→20:36)
[2021-07-16] MEDS: Sennosides 8.6 MG TABLET PO (09:28)
--- NOTE | 2021-07-16 10:19 | MHC.CLN ---
F/U DIET=2 GRAM SODIUM, NDD2, THIN LIQUIDS; SUPPLEMENT ENSURE TID (1050 KCAL, 39 G PROTEIN). WOUNDS: STAGE I BILATERAL BUTTOCKS. HEALED STAGE II LEFT HEEL. INTAKE AT MEALS USUALLY VERY GOOD WITH MANY 100%. WEIGHT REQUESTED FOR COMPARISON. RD TO FOLLOW WEEKLY
--- NOTE | 2021-07-16 11:31 | HO.PM.IMPN ---
Subjective Subjective Date of Service: 07/16/21 Interval History: Laying in the bed, comfortable not in distress No reported other overnight events. Systemic review: No fever, chills or weakness No chest pain, palpitation No shortness of breath or coughing No abdominal pain, nausea or vomiting Physical Exam Vital Signs: Vital Signs: Last Vital Signs Temp 98.0 F 07/16/21 08:00 Pulse 76 07/16/21 08:00 Resp 18 07/16/21 08:00 BP 113/57 L 07/16/21 08:00 Pulse Ox 97 07/16/21 08:00 BMI result Body Mass Index 21.1 Const: Other: Constitutional : Alert, disoriented, not in distress Neck : Normal inspection, Supple Respiratory : Chest moving bilaterally, no respiratory distress Neurological : Alert & disoriented, No focal deficit Objective Data Active Medications Acetaminophen (Acetaminophen 325 Mg Tablet) 650 mg PO Q4H PRN PRN Reason: mild pain Last Admin: 07/15/21 09:07 Dose: 650 mg Documented by: WANDY Folic Acid (Folic Acid 1 Mg Tablet) 1 mg PO DAILY [facility] Last Admin: 07/16/21 09:28 Dose: 1 mg Documented by: LAURENCE Heparin Sodium (Porcine) (Heparin Sodium,Porcine 5,000 Unit/Ml Vial) 5,000 unit SUBCUT Q12H [facility] Last Admin: 07/16/21 09:28 Dose: 5,000 unit Documented by: LAURENCE Hydroxyzine HCl (Hydroxyzine Hcl 50 Mg/Ml Vial) 25 mg IM Q6H PRN PRN Reason: anxiety/restlessness Last Admin: 07/14/21 19:52 Dose: 25 mg Documented by: CLARENCE Olanzapine (Olanzapine 5 Mg Tablet) 5 mg PO BEDTIME [facility] Last Admin: 07/15/21 21:09 Dose: 5 mg Documented by: CESAR Omeprazole (Omeprazole 20 Mg Capsule.) 20 mg PO DAILY@0630 [facility] Last Admin: 07/16/21 06:42 Dose: 20 mg Documented by: CESAR Pharmacy Consult (Consult Rx Perform Med Rec) 1 each MISCELLANE ONCE PRN PRN Reason: Consult order Senna (Sennosides 8.6 Mg Tablet) 8.6 mg PO DAILY [facility] Last Admin: 07/16/21 09:28 Dose: 8.6 mg Documented by: LAURENCE Sodium Chloride (0.9 % Sodium Chloride Flush 3 Ml Syringe) 3 ml IVFLUSH QSHIFT [facility] Last Admin: 07/16/21 09:26 Dose: Not Given Documented by: LAURENCE Non-Admin Reason: No Access Thiamine HCl (Thiamine Hcl 100 Mg Tablet) 100 mg PO DAILY [facility] Last Admin: 07/16/21 09:28 Dose: 100 mg Documented by: LAURENCE Trazodone HCl (Trazodone Hcl 25 Mg Halftab) 25 mg PO BEDTIME [facility] Last Admin: 07/15/21 21:08 Dose: 25 mg Documented by: CESAR Labs CBC & Chem 7: 06/12/21 05:12 06/12/21 05:12 Assessment and Plan (1) Dementia with behavioral disturbance: Status: Acute Assessment and Plan: hospital d#49 75 yo M who presented to the ED on 05/23/21 for AMS and failure to thrive. He was initially going to be placed at a facility, but on 05/29 was noted to have cough and a CXR revealed a new R base infiltrate concerning for aspiration pneumonia has completed Abx course and now awaiting placement No Acute issues Dementia with behavioral disturbances Alert and interactive Continue medications per psych Evaluated by psych -- does not have capacity Aspiration Pneumonia completed treatment Diet -- nectar thick and Ground/mech alerted Suspected scabies treated with Permethrin x 2 doses Stage 2 pressure ucler (L heel / M medial heel) - present on admission Stage 1 bilateral buttock - present on admission seen by materials mgmt tech with following instructions: Woundres Gel for the heel + Foam dressing Barrier cream Continue other usual decub preacutions -- nutrition + air loss bed + nutrition (on supplements), etc Dispo: Placement pending, guardianship guaranteed by court but CM still waiting paperwork Quality Stroke Does the patient have a stroke diagnosis?: No VTE Prior VTE?: No VTE Risk Level:: Medical - moderate - high VTE Device Contraindication: N/A - Device Ordered VTE Drug Contraindication: N/A - Med Ordered
--- NOTE | 2021-07-16 12:27 | PC.NURSE ---
[facility] of Public [facility] here to give Covid Vaccine. Received Pfizer. Second dose it due August 13 2021. If still inpatient please call [phone] to set up time for vaccine. If patient discharged to LTC before please sent information with them.
--- NOTE | 2021-07-16 15:21 | MHC.CM.NN ---
EMR REVIEWED, PT REMAINS MEDICALLY CLEARED, PT HAS ROOM ROUNDING D/T DEMENTIA/CONFUSION, PT RECEIVED 1ST PFIZER VACCINE TODAY AND DETAILS IN NOTE TO ARRANGE FOR 2ND DOSE THAT IS DUE July, CM STILL AWAITING FOR GUARDIAN/CONSERVATOR TO RESOLVE FINANCIALS AND [facility]PLETE [facility] FOR LTC FORM, SNF 'S DECLINING TO TAKE PT UNTIL LTC PAYOR IN PLACE.
[2021-07-16 16:00] VITALS: BP 150/74; PULSE 55; RESP 17; TEMP 36.1; O2SAT 97
[2021-07-16] MEDS: traZODone HCL 25 MG HALFTAB PO (20:36)
[2021-07-16] MEDS: OLANZapine 5 MG TABLET PO (20:36)
[2021-07-16 23:50] VITALS: BP 134/64; PULSE 56; RESP 18; TEMP 36.6; O2SAT 96
[2021-07-17] MEDS: Omeprazole 20 MG CAPSULE.DR PO (06:18)
[2021-07-17 08:00] VITALS: BP 115/81; PULSE 62; RESP 18; TEMP 36.2
--- NOTE | 2021-07-17 08:49 | PC.NURSE ---
Skin/wound assessment complete. The stage 2 pressure ulcer on left heel is healed. Blanchable redness to bilateral buttocks-barrier cream applied. No other skin issues noted at this time.
[2021-07-17] MEDS: Heparin Sodium,Porcine 5,000 UNIT/ML VIAL 5000 UNIT SUBCUT ×2 (10:13→20:19)
[2021-07-17] MEDS: Folic Acid 1 MG TABLET PO (10:13)
[2021-07-17] MEDS: Sennosides 8.6 MG TABLET PO (10:13)
[2021-07-17] MEDS: Thiamine HCL 100 MG TABLET PO (10:13)
--- NOTE | 2021-07-17 11:01 | P.PNIM_ITS ---
Subjective Subjective Date of Service: 07/17/21 Interval History: Laying in the bed, comfortable not in distress No reported other overnight events. Systemic review: No fever, chills or weakness No chest pain, palpitation No shortness of breath or coughing No abdominal pain, nausea or vomiting Physical Exam Vital Signs: Vital Signs: Last Vital Signs Temp 97.2 F 07/17/21 08:00 Pulse 62 07/17/21 08:00 Resp 18 07/17/21 08:00 BP 115/81 07/17/21 08:00 Pulse Ox 96 07/16/21 23:50 BMI result Body Mass Index 21.1 Const: Other: Constitutional : Alert, disoriented, not in distress Neck : Normal inspection, Supple Respiratory : Chest moving bilaterally, no respiratory distress Neurological : Alert & disoriented, No focal deficit Objective Data Active Medications Acetaminophen (Acetaminophen 325 Mg Tablet) 650 mg PO Q4H PRN PRN Reason: mild pain Last Admin: 07/15/21 09:07 Dose: 650 mg Documented by: WANDY Folic Acid (Folic Acid 1 Mg Tablet) 1 mg PO DAILY [facility] Last Admin: 07/17/21 10:13 Dose: 1 mg Documented by: GOLDEN Heparin Sodium (Porcine) (Heparin Sodium,Porcine 5,000 Unit/Ml Vial) 5,000 unit SUBCUT Q12H [facility] Last Admin: 07/17/21 10:13 Dose: 5,000 unit Documented by: GOLDEN Hydroxyzine HCl (Hydroxyzine Hcl 50 Mg/Ml Vial) 25 mg IM Q6H PRN PRN Reason: anxiety/restlessness Last Admin: 07/14/21 19:52 Dose: 25 mg Documented by: CLARENCE Olanzapine (Olanzapine 5 Mg Tablet) 5 mg PO BEDTIME [facility] Last Admin: 07/16/21 20:36 Dose: 5 mg Documented by: CESAR Omeprazole (Omeprazole 20 Mg Capsule.) 20 mg PO DAILY@0630 [facility] Last Admin: 07/17/21 06:18 Dose: 20 mg Documented by: CESAR Pharmacy Consult (Consult Rx Perform Med Rec) 1 each MISCELLANE ONCE PRN PRN Reason: Consult order Senna (Sennosides 8.6 Mg Tablet) 8.6 mg PO DAILY [facility] Last Admin: 07/17/21 10:13 Dose: 8.6 mg Documented by: GOLDEN Sodium Chloride (0.9 % Sodium Chloride Flush 3 Ml Syringe) 3 ml IVFLUSH QSHIFT [facility] Last Admin: 07/17/21 10:14 Dose: Not Given Documented by: GOLDEN Non-Admin Reason: No Access Thiamine HCl (Thiamine Hcl 100 Mg Tablet) 100 mg PO DAILY [facility] Last Admin: 07/17/21 10:13 Dose: 100 mg Documented by: GOLDEN Trazodone HCl (Trazodone Hcl 25 Mg Halftab) 25 mg PO BEDTIME [facility] Last Admin: 07/16/21 20:36 Dose: 25 mg Documented by: CESAR Labs CBC & Chem 7: 06/12/21 05:12 06/12/21 05:12 Assessment and Plan (1) Dementia with behavioral disturbance: Status: Acute Assessment and Plan: hospital d#49 75 yo M who presented to the ED on 05/23/21 for AMS and failure to thrive. He was initially going to be placed at a facility, but on 05/29 was noted to have cough and a CXR revealed a new R base infiltrate concerning for aspiration pneumonia has completed Abx course and now awaiting placement No Acute issues Received COVID vaccine Dementia with behavioral disturbances Alert and interactive Continue medications per psych Evaluated by psych -- does not have capacity Aspiration Pneumonia completed treatment Diet -- nectar thick and Ground/mech alerted Suspected scabies treated with Permethrin x 2 doses Stage 2 pressure ucler (L heel / M medial heel) - present on admission Stage 1 bilateral buttock - present on admission seen by deicer tester with following instructions: Woundres Gel for the heel + Foam dressing Barrier cream Continue other usual decub preacutions -- nutrition + air loss bed + nutrition (on supplements), etc Dispo: Placement pending, guardianship guaranteed by court but CM still waiting paperwork Quality Stroke Does the patient have a stroke diagnosis?: No VTE Prior VTE?: No VTE Risk Level:: Medical - moderate - high VTE Device Contraindication: N/A - Device Ordered VTE Drug Contraindication: N/A - Med Ordered
[2021-07-17 16:00] VITALS: BP 124/58; PULSE 68; RESP 18; TEMP 36.4; O2SAT 94
[2021-07-17] MEDS: traZODone HCL 25 MG HALFTAB PO (20:19)
[2021-07-17] MEDS: OLANZapine 5 MG TABLET PO (20:19)
[2021-07-17 23:26] VITALS: BP 119/64; PULSE 72; RESP 18; TEMP 36; O2SAT 98
[2021-07-18 07:18] VITALS: BP 144/77; PULSE 50; RESP 18; TEMP 36.4; O2SAT 96
[2021-07-18] MEDS: Sennosides 8.6 MG TABLET PO (09:54)
[2021-07-18] MEDS: Heparin Sodium,Porcine 5,000 UNIT/ML VIAL 5000 UNIT SUBCUT ×2 (09:54→20:38)
[2021-07-18] MEDS: Thiamine HCL 100 MG TABLET PO (09:54)
[2021-07-18] MEDS: Folic Acid 1 MG TABLET PO (09:54)
--- NOTE | 2021-07-18 12:09 | HO.PM.IMPN ---
Subjective Subjective Date of Service: 07/18/21 Interval History: no complaints Cardiovascular Cardiovascular: Reports no additional cardiovascular complaints Respiratory Respiratory: Reports no additional respiratory complaints Physical Exam Vital Signs: Vital Signs: Last Vital Signs Temp 97.6 F 07/18/21 07:18 Pulse 50 07/18/21 07:18 Resp 18 07/18/21 07:18 BP 144/77 H 07/18/21 07:18 Pulse Ox 96 07/18/21 07:18 BMI result Body Mass Index 21.1 Const Other:?Constitutional : Alert, disoriented, not in distress Neck : Normal inspection, Supple Respiratory :? Chest moving bilaterally, no respiratory distress Neurological : Alert & disoriented, No focal deficit Objective Data Active Medications Acetaminophen (Acetaminophen 325 Mg Tablet) 650 mg PO Q4H PRN PRN Reason: mild pain Last Admin: 07/15/21 09:07 Dose: 650 mg Documented by: WANDY Folic Acid (Folic Acid 1 Mg Tablet) 1 mg PO DAILY [facility] Last Admin: 07/18/21 09:54 Dose: 1 mg Documented by: TERESITA Heparin Sodium (Porcine) (Heparin Sodium,Porcine 5,000 Unit/Ml Vial) 5,000 unit SUBCUT Q12H [facility] Last Admin: 07/18/21 09:54 Dose: 5,000 unit Documented by: TERESITA Hydroxyzine HCl (Hydroxyzine Hcl 50 Mg/Ml Vial) 25 mg IM Q6H PRN PRN Reason: anxiety/restlessness Last Admin: 07/14/21 19:52 Dose: 25 mg Documented by: CLARENCE Olanzapine (Olanzapine 5 Mg Tablet) 5 mg PO BEDTIME [facility] Last Admin: 07/17/21 20:19 Dose: 5 mg Documented by: MARY Omeprazole (Omeprazole 20 Mg Capsule.Dr) 20 mg PO DAILY@0630 [facility] Last Admin: 07/18/21 06:45 Dose: Not Given Documented by: MARY Non-Admin Reason: asleep Pharmacy Consult (Consult Rx Perform Med Rec) 1 each MISCELLANE ONCE PRN PRN Reason: Consult order Senna (Sennosides 8.6 Mg Tablet) 8.6 mg PO DAILY [facility] Last Admin: 07/18/21 09:54 Dose: 8.6 mg Documented by: TERESITA Sodium Chloride (0.9 % Sodium Chloride Flush 3 Ml Syringe) 3 ml IVFLUSH QSHIFT [facility] Last Admin: 07/17/21 20:25 Dose: Not Given Documented by: MARY Non-Admin Reason: No Access Thiamine HCl (Thiamine Hcl 100 Mg Tablet) 100 mg PO DAILY [facility] Last Admin: 07/18/21 09:54 Dose: 100 mg Documented by: TERESITA Trazodone HCl (Trazodone Hcl 25 Mg Halftab) 25 mg PO BEDTIME [facility] Last Admin: 07/17/21 20:19 Dose: 25 mg Documented by: MARY Labs CBC & Chem 7: 06/12/21 05:12 06/12/21 05:12 Assessment and Plan (1) Dementia with behavioral disturbance: Status: Acute Assessment and Plan: hospital d#50 75 yo M who presented to the ED on 05/23/21 for AMS and failure to thrive. He was initially going to be placed at a facility, but on 05/29 was noted to have cough and a CXR revealed a new R base infiltrate concerning for aspiration pneumonia has completed Abx course and now awaiting placement No Acute issues Received COVID vaccine Dementia with behavioral disturbances Alert and interactive Continue medications per psych Evaluated by psych -- does not have capacity Aspiration Pneumonia completed treatment Diet -- nectar thick and Ground/mech alerted Suspected scabies treated with Permethrin x 2 doses Stage 2 pressure ucler (L heel / M medial heel) - present on admission Stage 1 bilateral buttock - present on admission seen by boiler engineer with following instructions: Woundres Gel for the heel + Foam dressing Barrier cream Continue other usual decub preacutions -- nutrition + air loss bed + nutrition (on supplements), etc Dispo: Placement pending, guardianship guaranteed by court but CM still waiting paperwork Quality Stroke Does the patient have a stroke diagnosis?: No VTE Prior VTE?: No VTE Risk Level:: Medical - moderate - high VTE Device Contraindication: N/A - Device Ordered VTE Drug Contraindication: N/A - Med Ordered
--- NOTE | 2021-07-18 12:57 | MHC.CM.PN ---
EMR REVIEWED, PT REMAINS MEDICALLY CLEARED AND ADMITTED FOR PLACEMENT, PT HAD FIRST PFIZER VACCINE 07/16/21, NO REPORTS SIDE EFFECTS HOWEVER PT IS DIFFICULT TO ACCESS D/T DEMENTIA, D/C PLAN CONT'S TO BE LTC ONCE [facility] LTC CHUCK IS COMPLETE AND PAYOR IN PLACE, CM WILL CONT TO MONITOR D/C NEEDS.
[2021-07-18 15:25] VITALS: BP 156/67; PULSE 40; RESP 18; TEMP 36.2; O2SAT 98
[2021-07-18] MEDS: OLANZapine 5 MG TABLET PO (20:39)
[2021-07-18] MEDS: 0.9 % Sodium Chloride Flush 3 ML SYRINGE IVFLUSH (20:39)
[2021-07-18] MEDS: traZODone HCL 25 MG HALFTAB PO (20:41)
[2021-07-18 23:55] VITALS: BP 114/56; PULSE 48; RESP 16; TEMP 36.1; O2SAT 95
[2021-07-19] MEDS: Omeprazole 20 MG CAPSULE.DR PO (05:53)
[2021-07-19 07:29] VITALS: BP 131/59; PULSE 73; RESP 19; TEMP 36.6; O2SAT 99
[2021-07-19] MEDS: Folic Acid 1 MG TABLET PO (07:43)
[2021-07-19] MEDS: Sennosides 8.6 MG TABLET PO (07:43)
[2021-07-19] MEDS: Thiamine HCL 100 MG TABLET PO (07:43)
[2021-07-19] MEDS: Heparin Sodium,Porcine 5,000 UNIT/ML VIAL 5000 UNIT SUBCUT ×2 (07:44→20:15)
--- NOTE | 2021-07-19 10:25 | P.PNIM_ITS ---
Subjective Subjective Date of Service: 07/19/21 Interval History: no complaints Cardiovascular Cardiovascular: Reports no additional cardiovascular complaints Respiratory Respiratory: Reports no additional respiratory complaints Physical Exam Vital Signs: Vital Signs: Last Vital Signs Temp 97.8 F 07/19/21 07:29 Pulse 73 07/19/21 07:29 Resp 19 07/19/21 07:29 BP 131/59 L 07/19/21 07:29 Pulse Ox 99 07/19/21 07:29 BMI result Body Mass Index 21.1 Const Other:?Constitutional : Alert, disoriented, not in distress Neck : Normal inspection, Supple Respiratory :? Chest moving bilaterally, no respiratory distress Neurological : Alert & disoriented, No focal deficit Objective Data Active Medications Acetaminophen (Acetaminophen 325 Mg Tablet) 650 mg PO Q4H PRN PRN Reason: mild pain Last Admin: 07/15/21 09:07 Dose: 650 mg Documented by: COTJAYDA Folic Acid (Folic Acid 1 Mg Tablet) 1 mg PO DAILY [facility] Last Admin: 07/19/21 07:43 Dose: 1 mg Documented by: APARNA Heparin Sodium (Porcine) (Heparin Sodium,Porcine 5,000 Unit/Ml Vial) 5,000 unit SUBCUT Q12H [facility] Last Admin: 07/19/21 07:44 Dose: 5,000 unit Documented by: APARNA Hydroxyzine HCl (Hydroxyzine Hcl 50 Mg/Ml Vial) 25 mg IM Q6H PRN PRN Reason: anxiety/restlessness Last Admin: 07/14/21 19:52 Dose: 25 mg Documented by: CLARENCE Olanzapine (Olanzapine 5 Mg Tablet) 5 mg PO BEDTIME [facility] Last Admin: 07/18/21 20:39 Dose: 5 mg Documented by: MAITE Omeprazole (Omeprazole 20 Mg Capsule.Dr) 20 mg PO DAILY@0630 [facility] Last Admin: 07/19/21 05:53 Dose: 20 mg Documented by: BENITA Pharmacy Consult (Consult Rx Perform Med Rec) 1 each MISCELLANE ONCE PRN PRN Reason: Consult order Senna (Sennosides 8.6 Mg Tablet) 8.6 mg PO DAILY [facility] Last Admin: 07/19/21 07:43 Dose: 8.6 mg Documented by: APARNA Sodium Chloride (0.9 % Sodium Chloride Flush 3 Ml Syringe) 3 ml IVFLUSH QSHIFT [facility] Last Admin: 07/19/21 07:48 Dose: Not Given Documented by: APARNA Non-Admin Reason: No Access Thiamine HCl (Thiamine Hcl 100 Mg Tablet) 100 mg PO DAILY [facility] Last Admin: 07/19/21 07:43 Dose: 100 mg Documented by: APARNA Trazodone HCl (Trazodone Hcl 25 Mg Halftab) 25 mg PO BEDTIME [facility] Last Admin: 07/18/21 20:41 Dose: 25 mg Documented by: MAITE Labs CBC & Chem 7: 06/12/21 05:12 06/12/21 05:12 Assessment and Plan (1) Dementia with behavioral disturbance: Status: Acute Assessment and Plan: hospital d#51 75 yo M who presented to the ED on 05/23/21 for AMS and failure to thrive. He w as initially going to be placed at a facility, but on 05/29 was noted to have cough and a CXR revealed a new R base infiltrate concerning for aspiration pneumonia has completed Abx course and now awaiting placement No Acute issues Received COVID vaccine Dementia with behavioral disturbances Alert and interactive Continue medications per psych Evaluated by psych -- does not have capacity Aspiration Pneumonia completed treatment Diet -- nectar thick and Ground/mech alerted Suspected scabies treated with Permethrin x 2 doses Stage 2 pressure ucler (L heel / M medial heel) - present on admission Stage 1 bilateral buttock - present on admission seen by waxing machine operator helper with following instructions: Woundres Gel for the heel + Foam dressing Barrier cream Continue other usual decub preacutions -- nutrition + air loss bed + nutrition (on supplements), etc Dispo: Placement pending, guardianship guaranteed by court but CM still waiting paperwork Quality Stroke Does the patient have a stroke diagnosis?: No VTE Prior VTE?: No VTE Risk Level:: Medical - moderate - high VTE Device Contraindication: N/A - Device Ordered VTE Drug Contraindication: N/A - Med Ordered
[2021-07-19 16:00] VITALS: BP 162/77; PULSE 66; RESP 18; TEMP 36.7; O2SAT 99
[2021-07-19] MEDS: OLANZapine 5 MG TABLET PO (20:15)
[2021-07-19] MEDS: traZODone HCL 25 MG HALFTAB PO (20:15)
[2021-07-19 23:42] VITALS: BP 165/70; PULSE 48; RESP 16; TEMP 36.2; O2SAT 98
[2021-07-20] MEDS: Omeprazole 20 MG CAPSULE.DR PO (05:50)
[2021-07-20 07:45] VITALS: BP 128/95; PULSE 73; RESP 18; TEMP 36.5; O2SAT 99
[2021-07-20] MEDS: Heparin Sodium,Porcine 5,000 UNIT/ML VIAL 5000 UNIT SUBCUT ×2 (08:32→21:10)
[2021-07-20] MEDS: Thiamine HCL 100 MG TABLET PO (08:33)
[2021-07-20] MEDS: Folic Acid 1 MG TABLET PO (08:33)
[2021-07-20] MEDS: Sennosides 8.6 MG TABLET PO (08:42)
--- NOTE | 2021-07-20 09:30 | HO.PM.IMPN ---
Subjective Subjective Date of Service: 07/20/21 Interval History: no complaints Cardiovascular Cardiovascular: Reports no additional cardiovascular complaints Respiratory Respiratory: Reports no additional respiratory complaints Physical Exam Vital Signs: Vital Signs: Last Vital Signs Temp 97.7 F 07/20/21 07:45 Pulse 73 07/20/21 07:45 Resp 18 07/20/21 07:45 BP 128/95 H 07/20/21 07:45 Pulse Ox 99 07/20/21 07:45 BMI result Body Mass Index 21.1 Const Other:?Constitutional : Alert, disoriented, not in distress Neck : Normal inspection, Supple Respiratory :? Chest moving bilaterally, no respiratory distress Neurological : Alert & disoriented, No focal deficit Objective Data Active Medications Acetaminophen (Acetaminophen 325 Mg Tablet) 650 mg PO Q4H PRN PRN Reason: mild pain Last Admin: 07/15/21 09:07 Dose: 650 mg Documented by: COTEMA Folic Acid (Folic Acid 1 Mg Tablet) 1 mg PO DAILY [facility] Last Admin: 07/20/21 08:33 Dose: 1 mg Documented by: MAITE Heparin Sodium (Porcine) (Heparin Sodium,Porcine 5,000 Unit/Ml Vial) 5,000 unit SUBCUT Q12H [facility] Last Admin: 07/20/21 08:32 Dose: 5,000 unit Documented by: MAITE Hydroxyzine HCl (Hydroxyzine Hcl 50 Mg/Ml Vial) 25 mg IM Q6H PRN PRN Reason: anxiety/restlessness Last Admin: 07/14/21 19:52 Dose: 25 mg Documented by: CLARENCE Olanzapine (Olanzapine 5 Mg Tablet) 5 mg PO BEDTIME [facility] Last Admin: 07/19/21 20:15 Dose: 5 mg Documented by: CLARENCE Omeprazole (Omeprazole 20 Mg Capsule.Dr) 20 mg PO DAILY@0630 [facility] Last Admin: 07/20/21 05:50 Dose: 20 mg Documented by: CLARENCE Pharmacy Consult (Consult Rx Perform Med Rec) 1 each MISCELLANE ONCE PRN PRN Reason: Consult order Senna (Sennosides 8.6 Mg Tablet) 8.6 mg PO DAILY [facility] Last Admin: 07/20/21 08:42 Dose: 8.6 mg Documented by: MAITE Sodium Chloride (0.9 % Sodium Chloride Flush 3 Ml Syringe) 3 ml IVFLUSH QSHIFT [facility] Last Admin: 07/20/21 08:36 Dose: Not Given Documented by: MAITE Non-Admin Reason: No Access Thiamine HCl (Thiamine Hcl 100 Mg Tablet) 100 mg PO DAILY [facility] Last Admin: 07/20/21 08:33 Dose: 100 mg Documented by: MAITE Trazodone HCl (Trazodone Hcl 25 Mg Halftab) 25 mg PO BEDTIME [facility] Last Admin: 07/19/21 20:15 Dose: 25 mg Documented by: CALRENCE Labs CBC & Chem 7: 06/12/21 05:12 06/12/21 05:12 Assessment and Plan (1) Dementia with behavioral disturbance: Status: Acute Assessment and Plan: hospital d#52 75 yo M who presented to the ED on 05/23/21 for AMS and failure to thrive. He was initially going to be placed at a facility, but on 05/29 was noted to have cough and a CXR revealed a new R base infiltrate concerning for aspiration pneumonia has completed Abx course and now awaiting placement No Acute issues Received COVID vaccine Dementia with behavioral disturbances Alert and interactive Continue medications per psych Evaluated by psych -- does not have capacity Aspiration Pneumonia completed treatment Diet -- nectar thick and Ground/mech alerted Suspected scabies treated with Permethrin x 2 doses Stage 2 pressure ucler (L heel / M medial heel) - present on admission Stage 1 bilateral buttock - present on admission seen by engineering professor with following instructions: Woundres Gel for the heel + Foam dressing Barrier cream Continue other usual decub preacutions -- nutrition + air loss bed + nutrition (on supplements), etc Dispo: Placement pending, guardianship guaranteed by court but CM still waiting paperwork Quality Stroke Does the patient have a stroke diagnosis?: No VTE Prior VTE?: No VTE Risk Level:: Medical - moderate - high VTE Device Contraindication: N/A - Device Ordered VTE Drug Contraindication: N/A - Med Ordered
[2021-07-20 15:23] VITALS: BP 115/57; PULSE 80; RESP 20; TEMP 36.3; O2SAT 98
[2021-07-20] MEDS: traZODone HCL 25 MG HALFTAB PO (21:09)
[2021-07-20] MEDS: OLANZapine 5 MG TABLET PO (21:09)
[2021-07-20] MEDS: diphenhydrAMINE HCL 25 MG TABLET PO (21:09)
[2021-07-20] MEDS: 0.9 % Sodium Chloride Flush 3 ML SYRINGE IVFLUSH (21:10)
[2021-07-21] MEDS: Omeprazole 20 MG CAPSULE.DR PO (05:37)
[2021-07-21 08:00] VITALS: BP 142/66; PULSE 64; RESP 14; TEMP 36.6; O2SAT 98
--- NOTE | 2021-07-21 09:56 | P.PNIM_ITS ---
Subjective Subjective Date of Service: 07/21/21 Interval History: no complaints ENT Ears, Nose, Mouth, and Throat: Reports system reviewed and no additional complaints, except as documented Cardiovascular Cardiovascular: Reports no additional cardiovascular complaints Physical Exam Vital Signs: Vital Signs: Last Vital Signs Temp 97.8 F 07/21/21 08:00 Pulse 64 07/21/21 08:00 Resp 14 07/21/21 08:00 BP 142/66 H 07/21/21 08:00 Pulse Ox 98 07/21/21 08:00 BMI result Body Mass Index 21.1 Const Other:?Constitutional : Alert, disoriented, not in distress Neck : Normal inspection, Supple Respiratory :? Chest moving bilaterally, no respiratory distress Neurological : Alert & disoriented, No focal deficit Objective Data Active Medications Acetaminophen (Acetaminophen 325 Mg Tablet) 650 mg PO Q4H PRN PRN Reason: mild pain Last Admin: 07/15/21 09:07 Dose: 650 mg Documented by: WANDY Folic Acid (Folic Acid 1 Mg Tablet) 1 mg PO DAILY [facility] Last Admin: 07/20/21 08:33 Dose: 1 mg Documented by: MAITE Heparin Sodium (Porcine) (Heparin Sodium,Porcine 5,000 Unit/Ml Vial) 5,000 unit SUBCUT Q12H [facility] Last Admin: 07/20/21 21:10 Dose: 5,000 unit Documented by: CLARENCE Hydroxyzine HCl (Hydroxyzine Hcl 50 Mg/Ml Vial) 25 mg IM Q6H PRN PRN Reason: anxiety/restlessness Last Admin: 07/14/21 19:52 Dose: 25 mg Documented by: CLARENCE Olanzapine (Olanzapine 5 Mg Tablet) 5 mg PO BEDTIME [facility] Last Admin: 07/20/21 21:09 Dose: 5 mg Documented by: CLARENCE Omeprazole (Omeprazole 20 Mg Capsule.Dr) 20 mg PO DAILY@0630 [facility] Last Admin: 07/21/21 05:37 Dose: 20 mg Documented by: CLARENCE Pharmacy Consult (Consult Rx Perform Med Rec) 1 each MISCELLANE ONCE PRN PRN Reason: Consult order Senna (Sennosides 8.6 Mg Tablet) 8.6 mg PO DAILY [facility] Last Admin: 07/20/21 08:42 Dose: 8.6 mg Documented by: HO.NGENOAL Sodium Chloride (0.9 % Sodium Chloride Flush 3 Ml Syringe) 3 ml IVFLUSH QSHIFT [facility] Last Admin: 07/20/21 21:10 Dose: 3 ml Documented by: CLARENCE Thiamine HCl (Thiamine Hcl 100 Mg Tablet) 100 mg PO DAILY [facility] Last Admin: 07/20/21 08:33 Dose: 100 mg Documented by: NGENOAL Trazodone HCl (Trazodone Hcl 25 Mg Halftab) 25 mg PO BEDTIME [facility] Last Admin: 07/20/21 21:09 Dose: 25 mg Documented by: CLARENCE Labs CBC & Chem 7: 06/12/21 05:12 06/12/21 05:12 Assessment and Plan (1) Dementia with behavioral disturbance: Status: Acute Assessment and Plan: hospital d#53 75 yo M who presented to the ED on 05/23/21 for AMS and failure to thrive. He was initially going to be placed at a facility, but on 05/29 was noted to have cough and a CXR revealed a new R base infiltrate concerning for aspiration pneumonia has completed Abx course and now awaiting placement No Acute issues Received COVID vaccine Dementia with behavioral disturbances Alert and interactive Continue medications per psych Evaluated by psych -- does not have capacity Aspiration Pneumonia completed treatment Diet -- nectar thick and Ground/mech alerted Suspected scabies treated with Permethrin x 2 doses Stage 2 pressure ucler (L heel / M medial heel) - present on admission Stage 1 bilateral buttock - present on admission seen by bank president with following instructions: Woundres Gel for the heel + Foam dressing Barrier cream Continue other usual decub preacutions -- nutrition + air loss bed + nutrition (on supplements), etc Dispo: Placement pending, guardianship guaranteed by court but CM still waiting paperwork Quality Stroke Does the patient have a stroke diagnosis?: No VTE Prior VTE?: No VTE Risk Level:: Medical - moderate - high VTE Device Contraindication: N/A - Device Ordered VTE Drug Contraindication: N/A - Med Ordered
[2021-07-21] MEDS: Folic Acid 1 MG TABLET PO (12:42)
[2021-07-21] MEDS: Thiamine HCL 100 MG TABLET PO (12:42)
[2021-07-21] MEDS: Sennosides 8.6 MG TABLET PO (12:42)
[2021-07-21 16:00] VITALS: BP 117/56; PULSE 62; RESP 18; TEMP 36.3; O2SAT 96
[2021-07-21] MEDS: OLANZapine 5 MG TABLET PO (20:04)
[2021-07-21] MEDS: traZODone HCL 25 MG HALFTAB PO (20:04)
[2021-07-22] VITALS: BP 116/58; PULSE 73; RESP 18; TEMP 36.1; O2SAT 94
[2021-07-22] MEDS: Omeprazole 20 MG CAPSULE.DR PO (05:39)
[2021-07-22 08:00] VITALS: BP 154/79; PULSE 54; RESP 18; TEMP 36.4; O2SAT 97
--- NOTE | 2021-07-22 09:34 | HO.PM.IMPN ---
Subjective Subjective Date of Service: 07/22/21 Interval History: no complaints ENT Ears, Nose, Mouth, and Throat: Reports system reviewed and no additional complaints, except as documented Cardiovascular Cardiovascular: Reports no additional cardiovascular complaints Physical Exam Vital Signs: Vital Signs: Last Vital Signs Temp 96.9 F 07/22/21 00:00 Pulse 73 07/22/21 00:00 Resp 18 07/22/21 00:00 BP 116/58 L 07/22/21 00:00 Pulse Ox 94 07/22/21 00:00 BMI result Body Mass Index 21.1 Const Other:?Constitutional : Alert, disoriented, not in distress Neck : Normal inspection, Supple Respiratory :? Chest moving bilaterally, no respiratory distress Neurological : Alert & disoriented, No focal deficit Objective Data Active Medications Acetaminophen (Acetaminophen 325 Mg Tablet) 650 mg PO Q4H PRN PRN Reason: mild pain Last Admin: 07/15/21 09:07 Dose: 650 mg Documented by: WANDY Folic Acid (Folic Acid 1 Mg Tablet) 1 mg PO DAILY [facility] Last Admin: 07/21/21 12:42 Dose: 1 mg Documented by: AURORA Heparin Sodium (Porcine) (Heparin Sodium,Porcine 5,000 Unit/Ml Vial) 5,000 unit SUBCUT Q12H [facility] Last Admin: 07/21/21 20:06 Dose: Not Given Documented by: AREYL Non-Admin Reason: Patient Refused Hydroxyzine HCl (Hydroxyzine Hcl 50 Mg/Ml Vial) 25 mg IM Q6H PRN PRN Reason: anxiety/restlessness Last Admin: 07/14/21 19:52 Dose: 25 mg Documented by: CLARENCE Olanzapine (Olanzapine 5 Mg Tablet) 5 mg PO BEDTIME [facility] Last Admin: 07/21/21 20:04 Dose: 5 mg Documented by: ARELY Omeprazole (Omeprazole 20 Mg Capsule.Dr) 20 mg PO DAILY@0630 [facility] Last Admin: 07/22/21 05:39 Dose: 20 mg Documented by: ARELY Pharmacy Consult (Consult Rx Perform Med Rec) 1 each MISCELLANE ONCE PRN PRN Reason: Consult order Senna (Sennosides 8.6 Mg Tablet) 8.6 mg PO DAILY [facility] Last Admin: 07/21/21 12:42 Dose: 8.6 mg Documented by: AURORA Sodium Chloride (0.9 % Sodium Chloride Flush 3 Ml Syringe) 3 ml IVFLUSH QSHIFT [facility] Last Admin: 07/22/21 09:11 Dose: Not Given Documented by: MAITE Non-Admin Reason: No Access Thiamine HCl (Thiamine Hcl 100 Mg Tablet) 100 mg PO DAILY [facility] Last Admin: 07/21/21 12:42 Dose: 100 mg Documented by: AURORA Trazodone HCl (Trazodone Hcl 25 Mg Halftab) 25 mg PO BEDTIME [facility] Last Admin: 07/21/21 20:04 Dose: 25 mg Documented by: LUCIANARISM Labs CBC & Chem 7: 06/12/21 05:12 06/12/21 05:12 Assessment and Plan (1) Dementia with behavioral disturbance: Status: Acute Assessment and Plan: hospital d#54 75 yo M who presented to the ED on 05/23/21 for AMS and failure to thrive. He was initially going to be placed at a facility, but on 05/29 was noted to have cough and a CXR revealed a new R base infiltrate concerning for aspiration pneumonia has completed Abx course and now awaiting placement No Acute issues Received COVID vaccine Dementia with behavioral disturbances Alert and interactive Continue medications per psych Evaluated by psych -- does not have capacity Aspiration Pneumonia completed treatment Diet -- nectar thick and Ground/mech alerted Suspected scabies treated with Permethrin x 2 doses Stage 2 pressure ucler (L heel / M medial heel) - present on admission Stage 1 bilateral buttock - present on admission seen by stick roller with following instructions: Woundres Gel for the heel + Foam dressing Barrier cream Continue other usual decub preacutions -- nutrition + air loss bed + nutrition (on supplements), etc Dispo: Placement pending, guardianship guaranteed by court but CM still waiting paperwork Quality Stroke Does the patient have a stroke diagnosis?: No VTE Prior VTE?: No VTE Risk Level:: Medical - moderate - high VTE Device Contraindication: N/A - Device Ordered VTE Drug Contraindication: N/A - Med Ordered
[2021-07-22] MEDS: Heparin Sodium,Porcine 5,000 UNIT/ML VIAL 5000 UNIT SUBCUT ×2 (09:56→22:20)
[2021-07-22] MEDS: Sennosides 8.6 MG TABLET PO (09:56)
[2021-07-22] MEDS: Thiamine HCL 100 MG TABLET PO (09:56)
[2021-07-22] MEDS: Folic Acid 1 MG TABLET PO (09:56)
--- NOTE | 2021-07-22 13:37 | MHC.CM.PN ---
CASE MANAGEMENT STILL AWAITING RESULTS OF ATTEMPTS TO SECURE LTC BENEFITS FOR PATIENT
[2021-07-22 16:00] VITALS: BP 127/66; PULSE 50; RESP 14; TEMP 36.8; O2SAT 97
[2021-07-22] MEDS: diphenhydrAMINE HCL 25 MG TABLET PO (22:20)
[2021-07-22] MEDS: traZODone HCL 25 MG HALFTAB PO (22:20)
[2021-07-22] MEDS: OLANZapine 5 MG TABLET PO (22:20)
[2021-07-23] VITALS: BP 116/80; PULSE 71; RESP 18; TEMP 36.4; O2SAT 98
[2021-07-23 07:46] VITALS: BP 112/53; PULSE 65; RESP 17; TEMP 36.3; O2SAT 99
[2021-07-23] MEDS: Thiamine HCL 100 MG TABLET PO (08:06)
[2021-07-23] MEDS: Sennosides 8.6 MG TABLET PO (08:07)
[2021-07-23] MEDS: Heparin Sodium,Porcine 5,000 UNIT/ML VIAL 5000 UNIT SUBCUT ×2 (08:07→21:48)
[2021-07-23] MEDS: Folic Acid 1 MG TABLET PO (08:07)
[2021-07-23] MEDS: Omeprazole 20 MG CAPSULE.DR PO (08:07)
--- NOTE | 2021-07-23 09:12 | HO.PM.IMPN ---
Subjective Subjective Date of Service: 07/23/21 Interval History: no complaints Cardiovascular Cardiovascular: Reports no additional cardiovascular complaints Respiratory Respiratory: Reports no additional respiratory complaints Physical Exam Vital Signs: Vital Signs: Last Vital Signs Temp 97.3 F 07/23/21 07:46 Pulse 65 07/23/21 07:46 Resp 17 07/23/21 07:46 BP 112/53 L 07/23/21 07:46 Pulse Ox 99 07/23/21 07:46 BMI result Body Mass Index 21.1 Const Other:?Constitutional : Alert, disoriented, not in distress Neck : Normal inspection, Supple Respiratory :? Chest moving bilaterally, no respiratory distress Neurological : Alert & disoriented, No focal deficit Objective Data Active Medications Acetaminophen (Acetaminophen 325 Mg Tablet) 650 mg PO Q4H PRN PRN Reason: mild pain Last Admin: 07/15/21 09:07 Dose: 650 mg Documented by: COTJAYDA Folic Acid (Folic Acid 1 Mg Tablet) 1 mg PO DAILY [facility] Last Admin: 07/23/21 08:07 Dose: 1 mg Documented by: ROBERT Heparin Sodium (Porcine) (Heparin Sodium,Porcine 5,000 Unit/Ml Vial) 5,000 unit SUBCUT Q12H [facility] Last Admin: 07/23/21 08:07 Dose: 5,000 unit Documented by: ROBERT Hydroxyzine HCl (Hydroxyzine Hcl 50 Mg/Ml Vial) 25 mg IM Q6H PRN PRN Reason: anxiety/restlessness Last Admin: 07/14/21 19:52 Dose: 25 mg Documented by: CLARENCE Olanzapine (Olanzapine 5 Mg Tablet) 5 mg PO BEDTIME [facility] Last Admin: 07/22/21 22:20 Dose: 5 mg Documented by: CLARENCE Omeprazole (Omeprazole 20 Mg Capsule.Dr) 20 mg PO DAILY@0630 [facility] Last Admin: 07/23/21 08:07 Dose: 20 mg Documented by: ROBERT Pharmacy Consult (Consult Rx Perform Med Rec) 1 each MISCELLANE ONCE PRN PRN Reason: Consult order Senna (Sennosides 8.6 Mg Tablet) 8.6 mg PO DAILY [facility] Last Admin: 07/23/21 08:07 Dose: 8.6 mg Documented by: ROBERT Sodium Chloride (0.9 % Sodium Chloride Flush 3 Ml Syringe) 3 ml IVFLUSH QSHIFT [facility] Last Admin: 07/23/21 08:07 Dose: Not Given Documented by: ROBERT Non-Admin Reason: No Access Thiamine HCl (Thiamine Hcl 100 Mg Tablet) 100 mg PO DAILY [facility] Last Admin: 07/23/21 08:06 Dose: 100 mg Documented by: ROBERT Trazodone HCl (Trazodone Hcl 25 Mg Halftab) 25 mg PO BEDTIME [facility] Last Admin: 07/22/21 22:20 Dose: 25 mg Documented by: CLARENCE Labs CBC & Chem 7: 06/12/21 05:12 06/12/21 05:12 Assessment and Plan (1) Dementia with behavioral disturbance: Status: Acute Assessment and Plan: hospital d#55 75 yo M who presented to the ED on 05/23/21 for AMS and failure to thrive. He was initially going to be placed at a facility, but on 05/29 was noted to have cough and a CXR revealed a new R base infiltrate concerning for aspiration pneumonia has completed Abx course and now awaiting placement No Acute issues Received COVID vaccine Dementia with behavioral disturbances Alert and interactive Continue medications per psych Evaluated by psych -- does not have capacity Aspiration Pneumonia completed treatment Diet -- nectar thick and Ground/mech alerted Suspected scabies treated with Permethrin x 2 doses Stage 2 pressure ucler (L heel / M medial heel) - present on admission Stage 1 bilateral buttock - present on admission seen by feller operator with following instructions: Woundres Gel for the heel + Foam dressing Barrier cream Continue other usual decub preacutions -- nutrition + air loss bed + nutrition (on supplements), etc Dispo: Placement pending, guardianship guaranteed by court but CM still waiting paperwork Quality Stroke Does the patient have a stroke diagnosis?: No VTE Prior VTE?: No VTE Risk Level:: Medical - moderate - high VTE Device Contraindication: N/A - Device Ordered VTE Drug Contraindication: N/A - Med Ordered
--- NOTE | 2021-07-23 12:19 | MHC.CLN ---
F/U DIET=2 GRAM SODIUM, NDD2, THIN LIQUIDS; SUPPLEMENT ENSURE TID (1050 KCAL, 39 G PROTEIN). WOUNDS: STAGE I BILATERAL BUTTOCKS. HEALED STAGE II LEFT HEEL. INTAKE AT MEALS USUALLY VERY GOOD WITH MOST 100%. WEIGHT REQUESTED FOR COMPARISON. RD TO FOLLOW WEEKLY.
--- NOTE | 2021-07-23 14:24 | MHC.CM.PN ---
EMR REVIEWED, PT REMAINS MEDICALLY CLEARED AND ADMITTED FOR PLACEMENT, CM STILL AWAITING FINANCIALS TO BE RESOLVED, D/C PLAN CONT'S TO BE LTC ONCE [facility] LTC [facility]UCK IS COMPLETE AND PAYOR IN PLACE, CM WILL CONT TO MONITOR D/C NEEDS.
[2021-07-23 16:00] VITALS: BP 152/60; PULSE 120; RESP 17; TEMP 36.6; O2SAT 98
[2021-07-23] MEDS: OLANZapine 5 MG TABLET PO (21:48)
[2021-07-23 23:35] VITALS: BP 148/73; PULSE 80; RESP 18; TEMP 36.4; O2SAT 97
[2021-07-24] MEDS: diphenhydrAMINE HCL 25 MG TABLET PO ×2 (01:45→22:45)
[2021-07-24] MEDS: Omeprazole 20 MG CAPSULE.DR PO (06:07)
[2021-07-24 07:40] VITALS: BP 177/78; PULSE 68; RESP 18; TEMP 36.2; O2SAT 99
--- NOTE | 2021-07-24 08:26 | HO.PM.IMPN ---
Subjective Subjective Date of Service: 07/24/21 Interval History: no complaints Cardiovascular Cardiovascular: Reports no additional cardiovascular complaints Respiratory Respiratory: Reports no additional respiratory complaints Physical Exam Vital Signs: Vital Signs: Last Vital Signs Temp 97.2 F 07/24/21 07:40 Pulse 68 07/24/21 07:40 Resp 18 07/24/21 07:40 BP 177/78 H 07/24/21 07:40 Pulse Ox 99 07/24/21 07:40 BMI result Body Mass Index 21.1 Const Other:?Constitutional : Alert, disoriented, not in distress Neck : Normal inspection, Supple Respiratory :? Chest moving bilaterally, no respiratory distress Neurological : Alert & disoriented, No focal deficit Objective Data Active Medications Acetaminophen (Acetaminophen 325 Mg Tablet) 650 mg PO Q4H PRN PRN Reason: mild pain Last Admin: 07/15/21 09:07 Dose: 650 mg Documented by: COTJAYDA Folic Acid (Folic Acid 1 Mg Tablet) 1 mg PO DAILY [facility] Last Admin: 07/23/21 08:07 Dose: 1 mg Documented by: ROBERT Heparin Sodium (Porcine) (Heparin Sodium,Porcine 5,000 Unit/Ml Vial) 5,000 unit SUBCUT Q12H [facility] Last Admin: 07/23/21 21:48 Dose: 5,000 unit Documented by: CLARENCE Hydroxyzine HCl (Hydroxyzine Hcl 50 Mg/Ml Vial) 25 mg IM Q6H PRN PRN Reason: anxiety/restlessness Last Admin: 07/14/21 19:52 Dose: 25 mg Documented by: CLARENCE Olanzapine (Olanzapine 5 Mg Tablet) 5 mg PO BEDTIME [facility] Last Admin: 07/23/21 21:48 Dose: 5 mg Documented by: CLARENCE Omeprazole (Omeprazole 20 Mg Capsule.Dr) 20 mg PO DAILY@0630 [facility] Last Admin: 07/24/21 06:07 Dose: 20 mg Documented by: CLARENCE Pharmacy Consult (Consult Rx Perform Med Rec) 1 each MISCELLANE ONCE PRN PRN Reason: Consult order Senna (Sennosides 8.6 Mg Tablet) 8.6 mg PO DAILY [facility] Last Admin: 07/23/21 08:07 Dose: 8.6 mg Documented by: ROBERT Sodium Chloride (0.9 % Sodium Chloride Flush 3 Ml Syringe) 3 ml IVFLUSH QSHIFT [facility] Last Admin: 07/23/21 23:20 Dose: Not Given Documented by: CLARENCE Non-Admin Reason: No Access Thiamine HCl (Thiamine Hcl 100 Mg Tablet) 100 mg PO DAILY [facility] Last Admin: 07/23/21 08:06 Dose: 100 mg Documented by: ROBERT Trazodone HCl (Trazodone Hcl 25 Mg Halftab) 25 mg PO BEDTIME [facility] Last Admin: 07/24/21 01:19 Dose: Not Given Documented by: CLARENCE Non-Admin Reason: Patient Refused Labs CBC & Chem 7: 06/12/21 05:12 06/12/21 05:12 Assessment and Plan (1) Dementia with behavioral disturbance: Status: Acute Assessment and Plan: hospital d#56 75 yo M who presented to the ED on 05/23/21 for AMS and failure to thrive. He was initially going to be placed at a facility, but on 05/29 was noted to have cough and a CXR revealed a new R base infiltrate concerning for aspiration pneumonia has completed Abx course and now awaiting placement No Acute issues Received COVID vaccine Dementia with behavioral disturbances Alert and interactive Continue medications per psych Evaluated by psych -- does not have capacity Aspiration Pneumonia completed treatment Diet -- nectar thick and Ground/mech alerted Suspected scabies treated with Permethrin x 2 doses Stage 2 pressure ucler (L heel / M medial heel) - present on admission Stage 1 bilateral buttock - present on admission seen by radiator fitter with following instructions: Woundres Gel for the heel + Foam dressing Barrier cream Continue other usual decub preacutions -- nutrition + air loss bed + nutrition (on supplements), etc Dispo: Placement pending, guardianship guaranteed by court but CM still waiting paperwork Quality Stroke Does the patient have a stroke diagnosis?: No VTE Prior VTE?: No VTE Risk Level:: Medical - moderate - high VTE Device Contraindication: N/A - Device Ordered VTE Drug Contraindication: N/A - Med Ordered
[2021-07-24] MEDS: Folic Acid 1 MG TABLET PO (10:52)
[2021-07-24] MEDS: Sennosides 8.6 MG TABLET PO (10:52)
[2021-07-24] MEDS: Thiamine HCL 100 MG TABLET PO (10:53)
[2021-07-24] MEDS: Heparin Sodium,Porcine 5,000 UNIT/ML VIAL 5000 UNIT SUBCUT ×2 (10:53→20:32)
[2021-07-24] MEDS: traZODone HCL 25 MG HALFTAB PO (20:32)
[2021-07-24] MEDS: OLANZapine 5 MG TABLET PO (20:32)
[2021-07-25] VITALS: BP 138/78; PULSE 78; RESP 18; TEMP 36.3; O2SAT 96
[2021-07-25 08:00] VITALS: BP 136/8; PULSE 72; RESP 18; TEMP 36.4; O2SAT 97
--- NOTE | 2021-07-25 10:39 | P.PNIM_ITS ---
Subjective Subjective Date of Service: 07/25/21 Interval History: Laying in the bed, comfortable not in distress No reported other overnight events. Systemic review: No fever, chills or weakness No chest pain, palpitation No shortness of breath or coughing No abdominal pain, nausea or vomiting Physical Exam Vital Signs: Vital Signs: Last Vital Signs Temp 97.6 F 07/25/21 08:00 Pulse 72 07/25/21 08:00 Resp 18 07/25/21 08:00 BP 136/8 L 07/25/21 08:00 Pulse Ox 97 07/25/21 08:00 BMI result Body Mass Index 21.1 Const: Other: Constitutional : Alert, disoriented, not in distress Neck : Normal inspection, Supple Respiratory : Chest moving bilaterally, no respiratory distress Neurological : Alert & disoriented, No focal deficit Objective Data Active Medications Acetaminophen (Acetaminophen 325 Mg Tablet) 650 mg PO Q4H PRN PRN Reason: mild pain Last Admin: 07/15/21 09:07 Dose: 650 mg Documented by: WANDY Folic Acid (Folic Acid 1 Mg Tablet) 1 mg PO DAILY [facility] Last Admin: 07/24/21 10:52 Dose: 1 mg Documented by: TERESITA Heparin Sodium (Porcine) (Heparin Sodium,Porcine 5,000 Unit/Ml Vial) 5,000 unit SUBCUT Q12H [facility] Last Admin: 07/24/21 20:32 Dose: 5,000 unit Documented by: CLARENCE Hydroxyzine HCl (Hydroxyzine Hcl 50 Mg/Ml Vial) 25 mg IM Q6H PRN PRN Reason: anxiety/restlessness Last Admin: 07/14/21 19:52 Dose: 25 mg Documented by: CLARENCE Olanzapine (Olanzapine 5 Mg Tablet) 5 mg PO BEDTIME [facility] Last Admin: 07/24/21 20:32 Dose: 5 mg Documented by: CLARENCE Omeprazole (Omeprazole 20 Mg Capsule.) 20 mg PO DAILY@0630 [facility] Last Admin: 07/25/21 06:25 Dose: Not Given Documented by: CLARENCE Non-Admin Reason: Patient Refused Pharmacy Consult (Consult Rx Perform Med Rec) 1 each MISCELLANE ONCE PRN PRN Reason: Consult order Senna (Sennosides 8.6 Mg Tablet) 8.6 mg PO DAILY [facility] Last Admin: 07/24/21 10:52 Dose: 8.6 mg Documented by: TERESITA Sodium Chloride (0.9 % Sodium Chloride Flush 3 Ml Syringe) 3 ml IVFLUSH QSHIFT [facility] Last Admin: 07/24/21 23:09 Dose: Not Given Documented by: CLARENCE Non-Admin Reason: No Access Thiamine HCl (Thiamine Hcl 100 Mg Tablet) 100 mg PO DAILY [facility] Last Admin: 07/24/21 10:53 Dose: 100 mg Documented by: TERESITA Trazodone HCl (Trazodone Hcl 25 Mg Halftab) 25 mg PO BEDTIME [facility] Last Admin: 07/24/21 20:32 Dose: 25 mg Documented by: CLARENCE Labs CBC & Chem 7: 06/12/21 05:12 06/12/21 05:12 Assessment and Plan (1) Dementia with behavioral disturbance: Status: Acute Assessment and Plan: hospital d#57 75 yo M who presented to the ED on 05/23/21 for AMS and failure to thrive. He was initially going to be placed at a facility, but on 05/29 was noted to have cough and a CXR revealed a new R base infiltrate concerning for aspiration pneumonia has completed Abx course and now awaiting placement No Acute issues Received COVID vaccine Dementia with behavioral disturbances Alert and interactive Continue medications per psych Evaluated by psych -- does not have capacity Aspiration Pneumonia completed treatment Diet -- nectar thick and Ground/mech alerted Suspected scabies treated with Permethrin x 2 doses Stage 2 pressure ucler (L heel / M medial heel) - present on admission Stage 1 bilateral buttock - present on admission seen by propagation worker with following instructions: Woundres Gel for the heel + Foam dressing Barrier cream Continue other usual decub preacutions -- nutrition + air loss bed + nutrition (on supplements), etc Dispo: Placement pending, guardianship guaranteed by court but CM still waiting paperwork Quality Stroke Does the patient have a stroke diagnosis?: No VTE Prior VTE?: No VTE Risk Level:: Medical - moderate - high VTE Device Contraindication: N/A - Device Ordered VTE Drug Contraindication: N/A - Med Ordered
[2021-07-25] MEDS: Heparin Sodium,Porcine 5,000 UNIT/ML VIAL 5000 UNIT SUBCUT ×2 (12:16→20:12)
[2021-07-25] MEDS: Thiamine HCL 100 MG TABLET PO (12:17)
[2021-07-25] MEDS: Folic Acid 1 MG TABLET PO (12:17)
[2021-07-25] MEDS: Sennosides 8.6 MG TABLET PO (12:17)
--- NOTE | 2021-07-25 16:40 | MHC.CM.PN ---
EMR REVIEWED, CM ATTEMPTED TO CALL PTS GUARDIAN/CONSERVATOR NENA GALVEZ AT 2:35PM [phone] TO CHECK IN ON STATUS OF FINANCIALS/[facility] HOWEVER PER MESSAGE MAYRA GALVEZ IS OUT OF OFFICE W/A MEDICAL ISSUE UNTIL 07/31/21, CM WILL FOLLOW-UP W/MAYRA GALVEZ NEXT WEEK. PT WILL NEED A LOCKED DEMENTIA UNIT ONCE LTC PAYOR IN PLACE.
[2021-07-25 19:27] VITALS: BP 123/65; PULSE 55; RESP 17; TEMP 37.1; O2SAT 96
[2021-07-25] MEDS: traZODone HCL 25 MG HALFTAB PO (20:12)
[2021-07-25] MEDS: OLANZapine 5 MG TABLET PO (20:12)
[2021-07-25 23:53] VITALS: BP 136/79; PULSE 62; RESP 15; TEMP 36.8; O2SAT 96
[2021-07-26] MEDS: Omeprazole 20 MG CAPSULE.DR PO (06:25)
[2021-07-26 08:00] VITALS: BP 118/56; PULSE 68; RESP 18; TEMP 36.4; O2SAT 93
[2021-07-26] MEDS: Thiamine HCL 100 MG TABLET PO (08:29)
[2021-07-26] MEDS: Heparin Sodium,Porcine 5,000 UNIT/ML VIAL 5000 UNIT SUBCUT ×2 (08:29→20:26)
[2021-07-26] MEDS: Sennosides 8.6 MG TABLET PO (08:29)
[2021-07-26] MEDS: Folic Acid 1 MG TABLET PO (08:29)
--- NOTE | 2021-07-26 14:31 | P.PNIM_ITS ---
Subjective Subjective Date of Service: 07/26/21 Interval History: Laying in the bed, comfortable not in distress No reported other overnight events. Systemic review: No fever, chills or weakness No chest pain, palpitation No shortness of breath or coughing No abdominal pain, nausea or vomiting Physical Exam Vital Signs: Vital Signs: Last Vital Signs Temp 97.5 F 07/26/21 08:00 Pulse 68 07/26/21 08:00 Resp 18 07/26/21 08:00 BP 118/56 L 07/26/21 08:00 Pulse Ox 93 07/26/21 08:00 BMI result Body Mass Index 21.1 Const: Other: Constitutional : Alert, disoriented, not in distress Neck : Normal inspection, Supple Respiratory : Chest moving bilaterally, no respiratory distress Neurological : Alert & disoriented, No focal deficit Objective Data Active Medications Acetaminophen (Acetaminophen 325 Mg Tablet) 650 mg PO Q4H PRN PRN Reason: mild pain Last Admin: 07/15/21 09:07 Dose: 650 mg Documented by: WANDY Folic Acid (Folic Acid 1 Mg Tablet) 1 mg PO DAILY [facility] Last Admin: 07/26/21 08:29 Dose: 1 mg Documented by: LAURENCE Heparin Sodium (Porcine) (Heparin Sodium,Porcine 5,000 Unit/Ml Vial) 5,000 unit SUBCUT Q12H [facility] Last Admin: 07/26/21 08:29 Dose: 5,000 unit Documented by: LAURENCE Hydroxyzine HCl (Hydroxyzine Hcl 50 Mg/Ml Vial) 25 mg IM Q6H PRN PRN Reason: anxiety/restlessness Last Admin: 07/14/21 19:52 Dose: 25 mg Documented by: CLARENCE Olanzapine (Olanzapine 5 Mg Tablet) 5 mg PO BEDTIME [facility] Last Admin: 07/25/21 20:12 Dose: 5 mg Documented by: ARELY Omeprazole (Omeprazole 20 Mg Capsule.) 20 mg PO DAILY@0630 [facility] Last Admin: 07/26/21 06:25 Dose: 20 mg Documented by: ARELY Pharmacy Consult (Consult Rx Perform Med Rec) 1 each MISCELLANE ONCE PRN PRN Reason: Consult order Senna (Sennosides 8.6 Mg Tablet) 8.6 mg PO DAILY [facility] Last Admin: 07/26/21 08:29 Dose: 8.6 mg Documented by: LAURENCE Thiamine HCl (Thiamine Hcl 100 Mg Tablet) 100 mg PO DAILY [facility] Last Admin: 07/26/21 08:29 Dose: 100 mg Documented by: LAURENCE Trazodone HCl (Trazodone Hcl 25 Mg Halftab) 25 mg PO BEDTIME [facility] Last Admin: 07/25/21 20:12 Dose: 25 mg Documented by: ARELY Labs CBC & Chem 7: 06/12/21 05:12 06/12/21 05:12 Assessment and Plan (1) Dementia: Status: Acute Assessment and Plan: hospital d#58 75 yo M who presented to the ED on 05/23/21 for AMS and failure to thrive. He was initially going to be placed at a facility, but on 05/29 was noted to have cough and a CXR revealed a new R base infiltrate concerning for aspiration pneumonia has completed Abx course and now awaiting placement No Acute issues Received COVID vaccine Dementia with behavioral disturbances Alert and interactive Continue medications per psych Evaluated by psych -- does not have capacity Aspiration Pneumonia completed treatment Diet -- nectar thick and Ground/mech alerted Suspected scabies treated with Permethrin x 2 doses Stage 2 pressure ucler (L heel / M medial heel) - present on admission Stage 1 bilateral buttock - present on admission seen by inventory control manager with following instructions: Woundres Gel for the heel + Foam dressing Barrier cream Continue other usual decub preacutions -- nutrition + air loss bed + nutrition (on supplements), etc Dispo: Placement pending, guardianship guaranteed by court but CM still waiting paperwork Quality Stroke Does the patient have a stroke diagnosis?: No VTE Prior VTE?: No VTE Risk Level:: Medical - moderate - high VTE Device Contraindication: N/A - Device Ordered VTE Drug Contraindication: N/A - Med Ordered
[2021-07-26 16:00] VITALS: BP 120/61; PULSE 76; RESP 18; TEMP 36.3; O2SAT 96
[2021-07-26] MEDS: traZODone HCL 25 MG HALFTAB PO (20:26)
[2021-07-26] MEDS: OLANZapine 5 MG TABLET PO (20:26)
[2021-07-27] VITALS: BP 130/58; PULSE 58; RESP 16; TEMP 36.2; O2SAT 97
[2021-07-27] MEDS: Omeprazole 20 MG CAPSULE.DR PO (06:31)
[2021-07-27 08:00] VITALS: BP 150/70; PULSE 83; RESP 118; TEMP 36.2; O2SAT 98
[2021-07-27] MEDS: Heparin Sodium,Porcine 5,000 UNIT/ML VIAL 5000 UNIT SUBCUT ×2 (08:21→19:20)
[2021-07-27] MEDS: Sennosides 8.6 MG TABLET PO (08:22)
[2021-07-27] MEDS: Thiamine HCL 100 MG TABLET PO (08:22)
[2021-07-27] MEDS: Folic Acid 1 MG TABLET PO (08:22)
--- NOTE | 2021-07-27 10:43 | HO.PM.IMPN ---
Subjective Subjective Date of Service: 07/27/21 Interval History: sitting in his chair, looks comfortable not in distress No reported other overnight events. Systemic review: No fever, chills or weakness No chest pain, palpitation No shortness of breath or coughing No abdominal pain, nausea or vomiting Physical Exam Vital Signs: Vital Signs: Last Vital Signs Temp 97.1 F 07/27/21 08:00 Pulse 83 07/27/21 08:00 Resp 118 H 07/27/21 08:00 BP 150/70 H 07/27/21 08:00 Pulse Ox 98 07/27/21 08:00 BMI result Body Mass Index 21.1 Const: Other: Constitutional : Alert, disoriented, not in distress Neck : Normal inspection, Supple Respiratory : Chest moving bilaterally, no respiratory distress Neurological : Alert & disoriented, No focal deficit Objective Data Active Medications Acetaminophen (Acetaminophen 325 Mg Tablet) 650 mg PO Q4H PRN PRN Reason: mild pain Last Admin: 07/15/21 09:07 Dose: 650 mg Documented by: COTEMA Folic Acid (Folic Acid 1 Mg Tablet) 1 mg PO DAILY [facility] Last Admin: 07/27/21 08:22 Dose: 1 mg Documented by: COTEMA Heparin Sodium (Porcine) (Heparin Sodium,Porcine 5,000 Unit/Ml Vial) 5,000 unit SUBCUT Q12H [facility] Last Admin: 07/27/21 08:21 Dose: 5,000 unit Documented by: COTEMA Hydroxyzine HCl (Hydroxyzine Hcl 50 Mg/Ml Vial) 25 mg IM Q6H PRN PRN Reason: anxiety/restlessness Last Admin: 07/14/21 19:52 Dose: 25 mg Documented by: CLARENCE Olanzapine (Olanzapine 5 Mg Tablet) 5 mg PO BEDTIME [facility] Last Admin: 07/26/21 20:26 Dose: 5 mg Documented by: ARELY Omeprazole (Omeprazole 20 Mg Capsule.) 20 mg PO DAILY@0630 [facility] Last Admin: 07/27/21 06:31 Dose: 20 mg Documented by: ARELY Pharmacy Consult (Consult Rx Perform Med Rec) 1 each MISCELLANE ONCE PRN PRN Reason: Consult order Senna (Sennosides 8.6 Mg Tablet) 8.6 mg PO DAILY [facility] Last Admin: 07/27/21 08:22 Dose: 8.6 mg Documented by: COTEMA Thiamine HCl (Thiamine Hcl 100 Mg Tablet) 100 mg PO DAILY [facility] Last Admin: 07/27/21 08:22 Dose: 100 mg Documented by: COTEMA Trazodone HCl (Trazodone Hcl 25 Mg Halftab) 25 mg PO BEDTIME [facility] Last Admin: 07/26/21 20:26 Dose: 25 mg Documented by: ODRISM Labs CBC & Chem 7: 06/12/21 05:12 06/12/21 05:12 Assessment and Plan (1) Dementia with behavioral disturbance: Status: Acute Assessment and Plan: hospital d#59 75 yo M who presented to the ED on 05/23/21 for AMS and failure to thrive. He was initially going to be placed at a facility, but on 05/29 was noted to have cough and a CXR revealed a new R base infiltrate concerning for aspiration pneumonia has completed Abx course and now awaiting placement No Acute issues Received COVID vaccine Dementia with behavioral disturbances Alert and interactive Continue medications per psych Evaluated by psych -- does not have capacity Aspiration Pneumonia completed treatment Diet -- nectar thick and Ground/mech alerted Suspected scabies treated with Permethrin x 2 doses Stage 2 pressure ucler (L heel / M medial heel) - present on admission Stage 1 bilateral buttock - present on admission seen by nurse instructor with following instructions: Woundres Gel for the heel + Foam dressing Barrier cream Continue other usual decub preacutions -- nutrition + air loss bed + nutrition (on supplements), etc Dispo: Placement pending, guardianship guaranteed by court but CM still waiting paperwork Quality Stroke Does the patient have a stroke diagnosis?: No VTE Prior VTE?: No VTE Risk Level:: Medical - moderate - high VTE Device Contraindication: N/A - Device Ordered VTE Drug Contraindication: N/A - Med Ordered
[2021-07-27] MEDS: OLANZapine 5 MG TABLET PO (19:21)
[2021-07-27] MEDS: traZODone HCL 25 MG HALFTAB PO (19:21)
[2021-07-27 23:25] VITALS: BP 125/64; PULSE 71; RESP 18; TEMP 36.7; O2SAT 98
[2021-07-28] MEDS: Omeprazole 20 MG CAPSULE.DR PO (06:31)
[2021-07-28 07:34] VITALS: BP 132/55; PULSE 87; RESP 18; TEMP 36.6; O2SAT 97
--- NOTE | 2021-07-28 09:52 | HO.PM.IMPN ---
Subjective Subjective Date of Service: 07/28/21 Interval History: sitting in his chair, looks comfortable not in distress No reported other overnight events. Systemic review: No fever, chills or weakness No chest pain, palpitation No shortness of breath or coughing No abdominal pain, nausea or vomiting Physical Exam Vital Signs: Vital Signs: Last Vital Signs Temp 97.8 F 07/28/21 07:34 Pulse 87 07/28/21 07:34 Resp 18 07/28/21 07:34 BP 132/55 L 07/28/21 07:34 Pulse Ox 97 07/28/21 07:34 BMI result Body Mass Index 21.1 Const: Other: Constitutional : Alert, disoriented, not in distress Neck : Normal inspection, Supple Respiratory : Chest moving bilaterally, no respiratory distress Neurological : Alert & disoriented, No focal deficit Objective Data Active Medications Acetaminophen (Acetaminophen 325 Mg Tablet) 650 mg PO Q4H PRN PRN Reason: mild pain Last Admin: 07/15/21 09:07 Dose: 650 mg Documented by: JULIANEMA Folic Acid (Folic Acid 1 Mg Tablet) 1 mg PO DAILY [facility] Last Admin: 07/27/21 08:22 Dose: 1 mg Documented by: JULIANEMA Heparin Sodium (Porcine) (Heparin Sodium,Porcine 5,000 Unit/Ml Vial) 5,000 unit SUBCUT Q12H [facility] Last Admin: 07/27/21 19:20 Dose: 5,000 unit Documented by: ELODIA Hydroxyzine HCl (Hydroxyzine Hcl 50 Mg/Ml Vial) 25 mg IM Q6H PRN PRN Reason: anxiety/restlessness Last Admin: 07/14/21 19:52 Dose: 25 mg Documented by: CLARENCE Olanzapine (Olanzapine 5 Mg Tablet) 5 mg PO BEDTIME [facility] Last Admin: 07/27/21 19:21 Dose: 5 mg Documented by: ELODIA Omeprazole (Omeprazole 20 Mg Capsule.) 20 mg PO DAILY@0630 [facility] Last Admin: 07/28/21 06:31 Dose: 20 mg Documented by: ELODIA Pharmacy Consult (Consult Rx Perform Med Rec) 1 each MISCELLANE ONCE PRN PRN Reason: Consult order Senna (Sennosides 8.6 Mg Tablet) 8.6 mg PO DAILY [facility] Last Admin: 07/27/21 08:22 Dose: 8.6 mg Documented by: COTEMA Thiamine HCl (Thiamine Hcl 100 Mg Tablet) 100 mg PO DAILY [facility] Last Admin: 07/27/21 08:22 Dose: 100 mg Documented by: COTEMA Trazodone HCl (Trazodone Hcl 25 Mg Halftab) 25 mg PO BEDTIME [facility] Last Admin: 07/27/21 19:21 Dose: 25 mg Documented by: ELODIA Labs CBC & Chem 7: 06/12/21 05:12 06/12/21 05:12 Assessment and Plan (1) Dementia with behavioral disturbance: Status: Acute Assessment and Plan: hospital d#60 75 yo M who presented to the ED on 05/23/21 for AMS and failure to thrive. He was initially going to be placed at a facility, but on 05/29 was noted to have cough and a CXR revealed a new R base infiltrate concerning for aspiration pneumonia has completed Abx course and now awaiting placement No Acute issues Received COVID vaccine Dementia with behavioral disturbances Alert and interactive Continue medications per psych Evaluated by psych -- does not have capacity Aspiration Pneumonia completed treatment Diet -- nectar thick and Ground/mech alerted Suspected scabies treated with Permethrin x 2 doses Stage 2 pressure ucler (L heel / M medial heel) - present on admission Stage 1 bilateral buttock - present on admission seen by grazing aide with following instructions: Woundres Gel for the heel + Foam dressing Barrier cream Continue other usual decub preacutions -- nutrition + air loss bed + nutrition (on supplements), etc Dispo: Placement pending, guardianship guaranteed by court but CM still waiting paperwork Quality Stroke Does the patient have a stroke diagnosis?: No VTE Prior VTE?: No VTE Risk Level:: Medical - moderate - high VTE Device Contraindication: N/A - Device Ordered VTE Drug Contraindication: N/A - Med Ordered
[2021-07-28] MEDS: Heparin Sodium,Porcine 5,000 UNIT/ML VIAL 5000 UNIT SUBCUT ×2 (10:03→19:24)
[2021-07-28] MEDS: Thiamine HCL 100 MG TABLET PO (10:03)
[2021-07-28] MEDS: Folic Acid 1 MG TABLET PO (10:03)
[2021-07-28] MEDS: Sennosides 8.6 MG TABLET PO (10:04)
[2021-07-28 15:39] VITALS: BP 106/62; PULSE 54; RESP 15; TEMP 36.4; O2SAT 97
[2021-07-28] MEDS: OLANZapine 5 MG TABLET PO (19:24)
[2021-07-28] MEDS: traZODone HCL 25 MG HALFTAB PO (19:24)
[2021-07-28] MEDS: diphenhydrAMINE HCL 25 MG TABLET PO (23:36)
[2021-07-28 23:51] VITALS: BP 146/65; PULSE 66; RESP 18; TEMP 36.2; O2SAT 96
[2021-07-29] MEDS: Omeprazole 20 MG CAPSULE.DR PO (05:36)
[2021-07-29 08:00] VITALS: BP 146/65; PULSE 59; RESP 18; TEMP 36.4; O2SAT 98
[2021-07-29] MEDS: Folic Acid 1 MG TABLET PO (11:52)
[2021-07-29] MEDS: Thiamine HCL 100 MG TABLET PO (11:52)
[2021-07-29] MEDS: Heparin Sodium,Porcine 5,000 UNIT/ML VIAL 5000 UNIT SUBCUT ×2 (11:52→19:17)
--- NOTE | 2021-07-29 12:52 | P.PNIM_ITS ---
Subjective Subjective Date of Service: 07/29/21 Interval History: laying in the bed, looks comfortable not in distress No reported other overnight events. Systemic review: No fever, chills or weakness No chest pain, palpitation No shortness of breath or coughing No abdominal pain, nausea or vomiting Physical Exam Vital Signs: Vital Signs: Last Vital Signs Temp 97.5 F 07/29/21 08:00 Pulse 59 07/29/21 08:00 Resp 18 07/29/21 08:00 BP 146/65 H 07/29/21 08:00 Pulse Ox 98 07/29/21 08:00 BMI result Body Mass Index 21.1 Const: Other: Constitutional : Alert, disoriented, not in distress Neck : Normal inspection, Supple Respiratory : Chest moving bilaterally, no respiratory distress Neurological : Alert & disoriented, No focal deficit Objective Data Active Medications Acetaminophen (Acetaminophen 325 Mg Tablet) 650 mg PO Q4H PRN PRN Reason: mild pain Last Admin: 07/15/21 09:07 Dose: 650 mg Documented by: WANDY Folic Acid (Folic Acid 1 Mg Tablet) 1 mg PO DAILY [facility] Last Admin: 07/29/21 11:52 Dose: 1 mg Documented by: AURORA Heparin Sodium (Porcine) (Heparin Sodium,Porcine 5,000 Unit/Ml Vial) 5,000 unit SUBCUT Q12H [facility] Last Admin: 07/29/21 11:52 Dose: 5,000 unit Documented by: AURORA Hydroxyzine HCl (Hydroxyzine Hcl 50 Mg/Ml Vial) 25 mg IM Q6H PRN PRN Reason: anxiety/restlessness Last Admin: 07/14/21 19:52 Dose: 25 mg Documented by: CLARENCE Olanzapine (Olanzapine 5 Mg Tablet) 5 mg PO BEDTIME [facility] Last Admin: 07/28/21 19:24 Dose: 5 mg Documented by: ELODIA Omeprazole (Omeprazole 20 Mg Capsule.) 20 mg PO DAILY@0630 [facility] Last Admin: 07/29/21 05:36 Dose: 20 mg Documented by: ELODIA Pharmacy Consult (Consult Rx Perform Med Rec) 1 each MISCELLANE ONCE PRN PRN Reason: Consult order Senna (Sennosides 8.6 Mg Tablet) 8.6 mg PO DAILY [facility] Last Admin: 01/02/22 11:55 Dose: Not Given Documented by: AURORA Non-Admin Reason: See Note Thiamine HCl (Thiamine Hcl 100 Mg Tablet) 100 mg PO DAILY [facility] Last Admin: 07/29/21 11:52 Dose: 100 mg Documented by: AURORA Trazodone HCl (Trazodone Hcl 25 Mg Halftab) 25 mg PO BEDTIME [facility] Last Admin: 07/28/21 19:24 Dose: 25 mg Documented by: ELODIA Labs CBC & Chem 7: 06/12/21 05:12 06/12/21 05:12 Assessment and Plan (1) Dementia with behavioral disturbance: Status: Acute Assessment and Plan: hospital d#61 75 yo M who presented to the ED on 05/23/21 for AMS and failure to thrive. He was initially going to be placed at a facility, but on 05/29 was noted to have cough and a CXR revealed a new R base infiltrate concerning for aspiration pneumonia has completed Abx course and now awaiting placement No Acute issues Received COVID vaccine Dementia with behavioral disturbances Alert and interactive Continue medications per psych Evaluated by psych -- does not have capacity Aspiration Pneumonia completed treatment Diet -- nectar thick and Ground/mech alerted Suspected scabies treated with Permethrin x 2 doses Stage 2 pressure ucler (L heel / M medial heel) - present on admission Stage 1 bilateral buttock - present on admission seen by industrial gas servicer with following instructions: Woundres Gel for the heel + Foam dressing Barrier cream Continue other usual decub preacutions -- nutrition + air loss bed + nutrition (on supplements), etc Dispo: Placement pending, guardianship guaranteed by court but CM still waiting paperwork Quality Stroke Does the patient have a stroke diagnosis?: No VTE Prior VTE?: No VTE Risk Level:: Medical - moderate - high VTE Device Contraindication: N/A - Device Ordered VTE Drug Contraindication: N/A - Med Ordered
[2021-07-29] MEDS: hydrOXYzine HCL 50 MG/ML VIAL 25 MG IM (13:12)
[2021-07-29 15:56] VITALS: BP 138/52; PULSE 66; RESP 18; TEMP 36.1; O2SAT 98
[2021-07-29] MEDS: traZODone HCL 25 MG HALFTAB PO (19:16)
[2021-07-29] MEDS: OLANZapine 5 MG TABLET PO (19:16)
[2021-07-30] VITALS: BP 157/74; PULSE 52; RESP 16; TEMP 36.4; O2SAT 98
[2021-07-30] MEDS: Omeprazole 20 MG CAPSULE.DR PO (06:02)
[2021-07-30 08:00] VITALS: BP 131/62; PULSE 63; RESP 18; TEMP 36.8; O2SAT 97
[2021-07-30] MEDS: Thiamine HCL 100 MG TABLET PO (09:05)
[2021-07-30] MEDS: Folic Acid 1 MG TABLET PO (09:05)
[2021-07-30] MEDS: Sennosides 8.6 MG TABLET PO (09:05)
[2021-07-30] MEDS: Heparin Sodium,Porcine 5,000 UNIT/ML VIAL 5000 UNIT SUBCUT ×2 (09:06→20:42)
--- NOTE | 2021-07-30 10:25 | P.PNIM_ITS ---
Subjective Subjective Date of Service: 07/30/21 Interval History: laying in the bed, looks comfortable not in distress No reported other overnight events. Systemic review: No fever, chills or weakness No chest pain, palpitation No shortness of breath or coughing No abdominal pain, nausea or vomiting Physical Exam Vital Signs: Vital Signs: Last Vital Signs Temp 98.2 F 07/30/21 08:00 Pulse 63 07/30/21 08:00 Resp 18 07/30/21 08:00 BP 131/62 07/30/21 08:00 Pulse Ox 97 07/30/21 08:00 BMI result Body Mass Index 21.1 Const: Other: Constitutional : Alert, disoriented, not in distress Neck : Normal inspection, Supple Respiratory : Chest moving bilaterally, no respiratory distress Neurological : Alert & disoriented, No focal deficit Objective Data Active Medications Acetaminophen (Acetaminophen 325 Mg Tablet) 650 mg PO Q4H PRN PRN Reason: mild pain Last Admin: 07/15/21 09:07 Dose: 650 mg Documented by: WANDY Folic Acid (Folic Acid 1 Mg Tablet) 1 mg PO DAILY [facility] Last Admin: 07/30/21 09:05 Dose: 1 mg Documented by: SCOTT Heparin Sodium (Porcine) (Heparin Sodium,Porcine 5,000 Unit/Ml Vial) 5,000 unit SUBCUT Q12H [facility] Last Admin: 07/30/21 09:06 Dose: 5,000 unit Documented by: SCOTT Hydroxyzine HCl (Hydroxyzine Hcl 50 Mg/Ml Vial) 25 mg IM Q6H PRN PRN Reason: anxiety/restlessness Last Admin: 07/29/21 13:12 Dose: 25 mg Documented by: AURORA Olanzapine (Olanzapine 5 Mg Tablet) 5 mg PO BEDTIME [facility] Last Admin: 07/29/21 19:16 Dose: 5 mg Documented by: ELODIA Omeprazole (Omeprazole 20 Mg Capsule.) 20 mg PO DAILY@0630 [facility] Last Admin: 07/30/21 06:02 Dose: 20 mg Documented by: ELODIA Pharmacy Consult (Consult Rx Perform Med Rec) 1 each MISCELLANE ONCE PRN PRN Reason: Consult order Senna (Sennosides 8.6 Mg Tablet) 8.6 mg PO DAILY [facility] Last Admin: 07/30/21 09:05 Dose: 8.6 mg Documented by: SCOTT Thiamine HCl (Thiamine Hcl 100 Mg Tablet) 100 mg PO DAILY [facility] Last Admin: 07/30/21 09:05 Dose: 100 mg Documented by: SCOTT Trazodone HCl (Trazodone Hcl 25 Mg Halftab) 25 mg PO BEDTIME [facility] Last Admin: 07/29/21 19:16 Dose: 25 mg Documented by: ELODIA Labs CBC & Chem 7: 06/12/21 05:12 06/12/21 05:12 Assessment and Plan (1) Dementia with behavioral disturbance: Status: Acute Assessment and Plan: hospital d#62 75 yo M who presented to the ED on 05/23/21 for AMS and failure to thrive. He was initially going to be placed at a facility, but on 05/29 was noted to have cough and a CXR revealed a new R base infiltrate concerning for aspiration pneumonia has completed Abx course and now awaiting placement No Acute issues Received COVID vaccine Dementia with behavioral disturbances Alert and interactive Continue medications per psych Evaluated by psych -- does not have capacity Aspiration Pneumonia completed treatment Diet -- nectar thick and Ground/mech alerted Suspected scabies treated with Permethrin x 2 doses Stage 2 pressure ucler (L heel / M medial heel) - present on admission Stage 1 bilateral buttock - present on admission seen by perennial house manager with following instructions: Woundres Gel for the heel + Foam dressing Barrier cream Continue other usual decub preacutions -- nutrition + air loss bed + nutrition (on supplements), etc Dispo: Placement pending, guardianship guaranteed by court but CM still waiting paperwork Quality Stroke Does the patient have a stroke diagnosis?: No VTE Prior VTE?: No VTE Risk Level:: Medical - moderate - high VTE Device Contraindication: N/A - Device Ordered VTE Drug Contraindication: N/A - Med Ordered
--- NOTE | 2021-07-30 13:44 | MHC.CM.PN ---
EMR REVIEWED, PT REMAINS MEDICALLY CLEARED AND ADMITTED FOR PLACEMENT, CM STILL AWAITING FINANCIALS TO BE RESOLVED, D/C PLAN CONT'S TO BE LTC ONCE [facility] CHUCK IS COMPLETE AND PAYOR IN PLACE, CM WILL FOLLOW-UP WITH MAYRA GALVEZ ONCE SHE IS BACK IN OFFICE AFTER 07/31/2020.
--- NOTE | 2021-07-30 14:22 | MHC.CLN ---
F/U DIET=2 GRAM SODIUM, NDD2, THIN LIQUIDS; SUPPLEMENT ENSURE TID (1050 KCAL, 39 G PROTEIN). SKIN: REDNESS (STAGE I) BILATERAL BUTTOCKS. INTAKE AT MEALS USUALLY 75-100%. RD TO FOLLOW WEEKLY.
[2021-07-30 16:00] VITALS: BP 127/74; PULSE 63; RESP 17; TEMP 37.3; O2SAT 97
[2021-07-30] MEDS: OLANZapine 5 MG TABLET PO (20:42)
[2021-07-30] MEDS: traZODone HCL 25 MG HALFTAB PO (20:42)
[2021-07-31] VITALS: BP 128/52; PULSE 79; RESP 17; TEMP 36.9; O2SAT 96
[2021-07-31] MEDS: Omeprazole 20 MG CAPSULE.DR PO (06:06)
[2021-07-31 07:34] VITALS: BP 128/69; PULSE 69; RESP 17; TEMP 37.1; O2SAT 99
[2021-07-31] MEDS: Sennosides 8.6 MG TABLET PO (09:51)
[2021-07-31] MEDS: Folic Acid 1 MG TABLET PO (09:51)
[2021-07-31] MEDS: Thiamine HCL 100 MG TABLET PO (09:51)
[2021-07-31] MEDS: Heparin Sodium,Porcine 5,000 UNIT/ML VIAL 5000 UNIT SUBCUT (09:51)
--- NOTE | 2021-07-31 11:25 | P.PNIM_ITS ---
Subjective Subjective Date of Service: 07/31/21 Interval History: laying in the bed, looks comfortable not in distress No reported other overnight events. Systemic review: No fever, chills or weakness No chest pain, palpitation No shortness of breath or coughing No abdominal pain, nausea or vomiting Physical Exam Vital Signs: Vital Signs: Last Vital Signs Temp 98.7 F 07/31/21 07:34 Pulse 69 07/31/21 07:34 Resp 17 07/31/21 07:34 BP 128/69 07/31/21 07:34 Pulse Ox 99 07/31/21 07:34 BMI result Body Mass Index 21.1 Const: Other: Constitutional : Alert, disoriented, not in distress Neck : Normal inspection, Supple Respiratory : Chest moving bilaterally, no respiratory distress Neurological : Alert & disoriented, No focal deficit Objective Data Active Medications Acetaminophen (Acetaminophen 325 Mg Tablet) 650 mg PO Q4H PRN PRN Reason: mild pain Last Admin: 07/15/21 09:07 Dose: 650 mg Documented by: WANDY Folic Acid (Folic Acid 1 Mg Tablet) 1 mg PO DAILY [facility] Last Admin: 07/31/21 09:51 Dose: 1 mg Documented by: TERESITA Heparin Sodium (Porcine) (Heparin Sodium,Porcine 5,000 Unit/Ml Vial) 5,000 unit SUBCUT Q12H [facility] Last Admin: 07/31/21 09:51 Dose: 5,000 unit Documented by: TERESITA Hydroxyzine HCl (Hydroxyzine Hcl 50 Mg/Ml Vial) 25 mg IM Q6H PRN PRN Reason: anxiety/restlessness Last Admin: 07/29/21 13:12 Dose: 25 mg Documented by: AURORA Olanzapine (Olanzapine 5 Mg Tablet) 5 mg PO BEDTIME [facility] Last Admin: 07/30/21 20:42 Dose: 5 mg Documented by: CESAR Omeprazole (Omeprazole 20 Mg Capsule.) 20 mg PO DAILY@0630 [facility] Last Admin: 07/31/21 06:06 Dose: 20 mg Documented by: CESAR Pharmacy Consult (Consult Rx Perform Med Rec) 1 each MISCELLANE ONCE PRN PRN Reason: Consult order Senna (Sennosides 8.6 Mg Tablet) 8.6 mg PO DAILY [facility] Last Admin: 07/31/21 09:51 Dose: 8.6 mg Documented by: TERESITA Thiamine HCl (Thiamine Hcl 100 Mg Tablet) 100 mg PO DAILY [facility] Last Admin: 07/31/21 09:51 Dose: 100 mg Documented by: TERESITA Trazodone HCl (Trazodone Hcl 25 Mg Halftab) 25 mg PO BEDTIME [facility] Last Admin: 07/30/21 20:42 Dose: 25 mg Documented by: CESAR Labs CBC & Chem 7: 06/12/21 05:12 06/12/21 05:12 Assessment and Plan (1) Dementia with behavioral disturbance: Status: Acute Assessment and Plan: hospital d#63 75 yo M who presented to the ED on 05/23/21 for AMS and failure to thrive. He was initially going to be placed at a facility, but on 05/29 was noted to have cough and a CXR revealed a new R base infiltrate concerning for aspiration pneumonia has completed Abx course and now awaiting placement No Acute issues Received COVID vaccine Dementia with behavioral disturbances Alert and interactive Continue medications per psych Evaluated by psych -- does not have capacity Aspiration Pneumonia completed treatment Diet -- nectar thick [facility] Suspected scabies treated with Permethrin x 2 doses Stage 2 pressure ucler (L heel / M medial heel) - present on admission Stage 1 bilateral buttock - present on admission seen by building associate with following instructions: Woundres Gel for the heel + Foam dressing Barrier cream Continue other usual decub preacutions -- nutrition + air loss bed + nutrition (on supplements), etc Dispo: Placement pending, guardianship guaranteed by court but CM still waiting paperwork Quality Stroke Does the patient have a stroke diagnosis?: No VTE Prior VTE?: No VTE Risk Level:: Medical - moderate - high VTE Device Contraindication: N/A - Device Ordered VTE Drug Contraindication: N/A - Med Ordered
[2021-07-31 16:00] VITALS: BP 174/71; PULSE 88; RESP 16; TEMP 36.2; O2SAT 97
--- NOTE | 2021-07-31 16:05 | MHC.CM.PN ---
FACE SHEET, INSURANCE, AND SOCIAL SECURITY INFO FAXED TO ATTY SACHIN KLEIN AT [phone] SACHIN IS STARTING THE PRELIMINARY APPLICATION FOR [employer]. ATTY. HAD TO CHANGE PATIENT'S MAILING ADDRESS TO HER BUSINESS ADDRESS, WHICH HAS TAKEN TIME TO RECEIVE THE REQUIRED MAILINGS PATIENT HAS A PENSION WHICH HAS JUST ARRIVED, AND ATTChitra KLEIN WILL CONTACT THE POLLUTION CONTROL CHEMIST AND INCLUDE THIS INFO FOR HIS LTC
[2021-07-31] MEDS: traZODone HCL 25 MG HALFTAB PO (20:43)
[2021-07-31] MEDS: OLANZapine 5 MG TABLET PO (20:43)
[2021-08-01] VITALS: BP 97/54; PULSE 66; RESP 18; TEMP 37.1; O2SAT 95
[2021-08-01] MEDS: Omeprazole 20 MG CAPSULE.DR PO (06:41)
[2021-08-01 07:50] VITALS: BP 138/63; PULSE 60; RESP 16; TEMP 36.6; O2SAT 97
[2021-08-01] MEDS: Folic Acid 1 MG TABLET PO (09:56)
[2021-08-01] MEDS: Thiamine HCL 100 MG TABLET PO (09:57)
[2021-08-01] MEDS: Heparin Sodium,Porcine 5,000 UNIT/ML VIAL 5000 UNIT SUBCUT ×2 (09:57→21:11)
--- NOTE | 2021-08-01 12:25 | HO.PM.IMPN ---
Subjective Subjective Date of Service: 08/01/21 Interval History: no complaints Review of Systems Review of Systems: Yes all other systems are reviewed and are negative Physical Exam Vital Signs: Vital Signs: Last Vital Signs Temp 97.8 F 08/01/21 07:50 Pulse 60 08/01/21 07:50 Resp 16 08/01/21 07:50 BP 138/63 08/01/21 07:50 Pulse Ox 97 08/01/21 07:50 BMI result Body Mass Index 21.1 Const Other:?Constitutional : Alert, disoriented, not in distress Neck : Normal inspection, Supple Respiratory :? Chest moving bilaterally, no respiratory distress Neurological : Alert & disoriented, No focal deficit Objective Data Active Medications Acetaminophen (Acetaminophen 325 Mg Tablet) 650 mg PO Q4H PRN PRN Reason: mild pain Last Admin: 07/15/21 09:07 Dose: 650 mg Documented by: COTJAYDA Folic Acid (Folic Acid 1 Mg Tablet) 1 mg PO DAILY [facility] Last Admin: 08/01/21 09:56 Dose: 1 mg Documented by: AURORA Heparin Sodium (Porcine) (Heparin Sodium,Porcine 5,000 Unit/Ml Vial) 5,000 unit SUBCUT Q12H [facility] Last Admin: 08/01/21 09:57 Dose: 5,000 unit Documented by: AURORA Hydroxyzine HCl (Hydroxyzine Hcl 50 Mg/Ml Vial) 25 mg IM Q6H PRN PRN Reason: anxiety/restlessness Last Admin: 07/29/21 13:12 Dose: 25 mg Documented by: AURORA Olanzapine (Olanzapine 5 Mg Tablet) 5 mg PO BEDTIME [facility] Last Admin: 07/31/21 20:43 Dose: 5 mg Documented by: BRIANNA Omeprazole (Omeprazole 20 Mg Capsule.Dr) 20 mg PO DAILY@0630 [facility] Last Admin: 08/01/21 06:41 Dose: 20 mg Documented by: MARY Pharmacy Consult (Consult Rx Perform Med Rec) 1 each MISCELLANE ONCE PRN PRN Reason: Consult order Senna (Sennosides 8.6 Mg Tablet) 8.6 mg PO DAILY [facility] Last Admin: 08/01/21 09:57 Dose: Not Given Documented by: AURORA Non-Admin Reason: Patient Refused Thiamine HCl (Thiamine Hcl 100 Mg Tablet) 100 mg PO DAILY [facility] Last Admin: 08/01/21 09:57 Dose: 100 mg Documented by: AURORA Trazodone HCl (Trazodone Hcl 25 Mg Halftab) 25 mg PO BEDTIME [facility] Last Admin: 07/31/21 20:43 Dose: 25 mg Documented by: BRIANNA Labs CBC & Chem 7: 06/12/21 05:12 06/12/21 05:12 Assessment and Plan (1) Dementia with behavioral disturbance: Status: Acute Assessment and Plan: hospital d#64 75 yo M who presented to the ED on 05/23/21 for AMS and failure to thrive. He was initially going to be placed at a facility, but on 05/29 was noted to have cough and a CXR revealed a new R base infiltrate concerning for aspiration pneumonia has completed Abx course and now awaiting placement No Acute issues Received COVID vaccine Dementia with behavioral disturbances Alert and interactive Continue medications per psych Evaluated by psych -- does not have capacity Aspiration Pneumonia completed treatment Diet -- nectar thick and Ground/mech alerted Suspected scabies treated with Permethrin x 2 doses Stage 2 pressure ucler (L heel / M medial heel) - present on admission Stage 1 bilateral buttock - present on admission seen by overlock sewing machine operator with following instructions: Woundres Gel for the heel + Foam dressing Barrier cream Continue other usual decub preacutions -- nutrition + air loss bed + nutrition (on supplements), etc Dispo: Placement pending, guardianship guaranteed by court but CM still waiting paperwork Quality Stroke Does the patient have a stroke diagnosis?: No VTE Prior VTE?: No VTE Risk Level:: Medical - moderate - high VTE Device Contraindication: N/A - Device Ordered VTE Drug Contraindication: N/A - Med Ordered
--- NOTE | 2021-08-01 15:57 | MHC.CM.PN ---
PATIENT IS SCHEDULED FOR SECOND COVID VACCINE (LOC&ALL)ON 08/06/2021 UNIT MADE AWARE. SNF REFERRALS MADE AWARE
[2021-08-01 16:00] VITALS: BP 134/57; PULSE 52; RESP 18; TEMP 36.9; O2SAT 96
[2021-08-01] MEDS: traZODone HCL 25 MG HALFTAB PO (21:11)
[2021-08-01] MEDS: OLANZapine 5 MG TABLET PO (21:11)
[2021-08-01 23:17] VITALS: BP 109/75; PULSE 97; RESP 18; TEMP 36.7; O2SAT 92
[2021-08-02] MEDS: hydrOXYzine HCL 50 MG/ML VIAL 25 MG IM (04:02)
[2021-08-02] MEDS: Omeprazole 20 MG CAPSULE.DR PO (04:04)
--- NOTE | 2021-08-02 04:24 | PC.NURSE ---
Pt is very restless and has increased impulsiveness and hard to redirect tonight, sitter in room, ambulated around but no effect, prn Atarax IM given, will cont to keep pt safe and meet needs.
[2021-08-02 08:00] VITALS: BP 120/63; PULSE 85; RESP 18; TEMP 36.2; O2SAT 95
--- NOTE | 2021-08-02 10:07 | P.PNIM_ITS ---
Subjective Subjective Date of Service: 08/02/21 Interval History: no complaints Cardiovascular Cardiovascular: Reports no additional cardiovascular complaints Respiratory Respiratory: Reports no additional respiratory complaints Physical Exam Vital Signs: Vital Signs: Last Vital Signs Temp 97.2 F 08/02/21 08:00 Pulse 85 08/02/21 08:00 Resp 18 08/02/21 08:00 BP 120/63 08/02/21 08:00 Pulse Ox 95 08/02/21 08:00 BMI result Body Mass Index 21.1 Const Other:?Constitutional : Alert, disoriented, not in distress Neck : Normal inspection, Supple Respiratory :? Chest moving bilaterally, no respiratory distress Neurological : Alert & disoriented, No focal deficit Objective Data Active Medications Acetaminophen (Acetaminophen 325 Mg Tablet) 650 mg PO Q4H PRN PRN Reason: mild pain Last Admin: 07/15/21 09:07 Dose: 650 mg Documented by: COTEMA Folic Acid (Folic Acid 1 Mg Tablet) 1 mg PO DAILY [facility] Last Admin: 08/01/21 09:56 Dose: 1 mg Documented by: AURORA Heparin Sodium (Porcine) (Heparin Sodium,Porcine 5,000 Unit/Ml Vial) 5,000 unit SUBCUT Q12H [facility] Last Admin: 08/01/21 21:11 Dose: 5,000 unit Documented by: SYLVIA Hydroxyzine HCl (Hydroxyzine Hcl 50 Mg/Ml Vial) 25 mg IM Q6H PRN PRN Reason: anxiety/restlessness Last Admin: 08/02/21 04:02 Dose: 25 mg Documented by: SYLVIA Olanzapine (Olanzapine 5 Mg Tablet) 5 mg PO BEDTIME [facility] Last Admin: 08/01/21 21:11 Dose: 5 mg Documented by: SYLVIA Omeprazole (Omeprazole 20 Mg Capsule.Dr) 20 mg PO DAILY@0630 [facility] Last Admin: 08/02/21 04:04 Dose: 20 mg Documented by: SYLVIA Pharmacy Consult (Consult Rx Perform Med Rec) 1 each MISCELLANE ONCE PRN PRN Reason: Consult order Senna (Sennosides 8.6 Mg Tablet) 8.6 mg PO DAILY [facility] Last Admin: 08/01/21 09:57 Dose: Not Given Documented by: AURORA Non-Admin Reason: Patient Refused Thiamine HCl (Thiamine Hcl 100 Mg Tablet) 100 mg PO DAILY [facility] Last Admin: 08/01/21 09:57 Dose: 100 mg Documented by: AURORA Trazodone HCl (Trazodone Hcl 25 Mg Halftab) 25 mg PO BEDTIME [facility] Last Admin: 08/01/21 21:11 Dose: 25 mg Documented by: SYLVIA Labs CBC & Chem 7: 06/12/21 05:12 06/12/21 05:12 Assessment and Plan (1) Dementia with behavioral disturbance: Status: Acute Assessment and Plan: hospital d#64 75 yo M who presented to the ED on 05/23/21 for AMS and failure to thrive. He was initially going to be placed at a facility, but on 05/29 was noted to have cough and a CXR revealed a new R base infiltrate concerning for aspiration pneumonia has completed Abx course and now awaiting placement No Acute issues Received COVID vaccine Dementia with behavioral disturbances Alert and interactive Continue medications per psych Evaluated by psych -- does not have capacity Aspiration Pneumonia completed treatment Diet -- nectar thick and Ground/mech alerted Suspected scabies treated with Permethrin x 2 doses Stage 2 pressure ucler (L heel / M medial heel) - present on admission Stage 1 bilateral buttock - present on admission seen by special certificate dictator with following instructions: Woundres Gel for the heel + Foam dressing Barrier cream Continue other usual decub preacutions -- nutrition + air loss bed + nutrition (on supplements), etc Dispo: Placement pending, guardianship guaranteed by court but CM still waiting paperwork Quality Stroke Does the patient have a stroke diagnosis?: No VTE Prior VTE?: No VTE Risk Level:: Medical - moderate - high VTE Device Contraindication: N/A - Device Ordered VTE Drug Contraindication: N/A - Med Ordered
[2021-08-02] MEDS: Heparin Sodium,Porcine 5,000 UNIT/ML VIAL 5000 UNIT SUBCUT ×2 (11:58→22:09)
[2021-08-02] MEDS: Thiamine HCL 100 MG TABLET PO (11:59)
[2021-08-02] MEDS: Sennosides 8.6 MG TABLET PO (11:59)
[2021-08-02] MEDS: Folic Acid 1 MG TABLET PO (11:59)
--- NOTE | 2021-08-02 13:31 | MHC.CM.PN ---
Yamilex MET W/[facility] FOR [facility] [place] AND SHE REPORTED THEY HAVE 2 DEMENTIA BEDS ON THEIR LOCKED UNIT, REFERRAL HAS BEEN SENT VIA [employer] W/INFO ON VACCINE STATUS AND DATE FOR 2ND PFIZER VACCINE.
[2021-08-02 15:43] VITALS: BP 111/63; PULSE 77; RESP 18; TEMP 36.2; O2SAT 98
[2021-08-02] MEDS: OLANZapine 5 MG TABLET PO (22:09)
[2021-08-02] MEDS: traZODone HCL 50 MG TABLET PO (22:09)
[2021-08-03] VITALS: BP 129/87; PULSE 86; RESP 18; TEMP 36.4; O2SAT 97
[2021-08-03 08:00] VITALS: BP 148/77; PULSE 56; RESP 18; TEMP 36.4; O2SAT 97
[2021-08-03] MEDS: Thiamine HCL 100 MG TABLET PO (12:34)
[2021-08-03] MEDS: Folic Acid 1 MG TABLET PO (12:34)
[2021-08-03] MEDS: Sennosides 8.6 MG TABLET PO (12:34)
[2021-08-03] MEDS: Heparin Sodium,Porcine 5,000 UNIT/ML VIAL 5000 UNIT SUBCUT ×2 (12:35→20:15)
--- NOTE | 2021-08-03 12:41 | P.PNIM_ITS ---
Subjective Subjective Date of Service: 08/03/21 Interval History: laying in the bed, looks comfortable not in distress No reported other overnight events. Systemic review: No fever, chills or weakness No chest pain, palpitation No shortness of breath or coughing No abdominal pain, nausea or vomiting Physical Exam Vital Signs: Vital Signs: Last Vital Signs Temp 97.5 F 08/03/21 08:00 Pulse 56 08/03/21 08:00 Resp 18 08/03/21 08:00 BP 148/77 H 08/03/21 08:00 Pulse Ox 97 08/03/21 08:00 BMI result Body Mass Index 21.1 Const: Other: Constitutional : Alert, disoriented, not in distress Neck : Normal inspection, Supple Respiratory : Chest moving bilaterally, no respiratory distress Neurological : Alert & disoriented, No focal deficit Objective Data Active Medications Acetaminophen (Acetaminophen 325 Mg Tablet) 650 mg PO Q4H PRN PRN Reason: mild pain Last Admin: 07/15/21 09:07 Dose: 650 mg Documented by: WANDY Folic Acid (Folic Acid 1 Mg Tablet) 1 mg PO DAILY [facility] Last Admin: 08/03/21 12:34 Dose: 1 mg Documented by: SCOTT Heparin Sodium (Porcine) (Heparin Sodium,Porcine 5,000 Unit/Ml Vial) 5,000 unit SUBCUT Q12H [facility] Last Admin: 08/03/21 12:35 Dose: 5,000 unit Documented by: SCOTT Hydroxyzine HCl (Hydroxyzine Hcl 50 Mg/Ml Vial) 25 mg IM Q6H PRN PRN Reason: anxiety/restlessness Last Admin: 08/02/21 04:02 Dose: 25 mg Documented by: SYLVIA Olanzapine (Olanzapine 5 Mg Tablet) 5 mg PO BEDTIME [facility] Last Admin: 08/02/21 22:09 Dose: 5 mg Documented by: MELODY Omeprazole (Omeprazole 20 Mg Capsule.Dr) 20 mg PO DAILY@0630 [facility] Last Admin: 08/03/21 12:35 Dose: Not Given Documented by: SCOTT Non-Admin Reason: Patient Asleep Pharmacy Consult (Consult Rx Perform Med Rec) 1 each MISCELLANE ONCE PRN PRN Reason: Consult order Senna (Sennosides 8.6 Mg Tablet) 8.6 mg PO DAILY [facility] Last Admin: 08/03/21 12:34 Dose: 8.6 mg Documented by: SCOTT Thiamine HCl (Thiamine Hcl 100 Mg Tablet) 100 mg PO DAILY [facility] Last Admin: 08/03/21 12:34 Dose: 100 mg Documented by: SCOTT Trazodone HCl (Trazodone Hcl 50 Mg Tablet) 50 mg PO BEDTIME [facility] Last Admin: 08/02/21 22:09 Dose: 50 mg Documented by: MELODY Labs CBC & Chem 7: 06/12/21 05:12 06/12/21 05:12 Assessment and Plan (1) Dementia with behavioral disturbance: Status: Acute Assessment and Plan: hospital d#65 75 yo M who presented to the ED on 05/23/21 for AMS and failure to thrive. He was initially going to be placed at a facility, but on 05/29 was noted to have cough and a CXR revealed a new R base infiltrate concerning for aspiration pneumonia has completed Abx course and now awaiting placement No Acute issues Received COVID vaccine Dementia with behavioral disturbances Alert and interactive Continue medications per psych Evaluated by psych -- does not have capacity Aspiration Pneumonia completed treatment Diet -- nectar thick and Ground/mech alerted Suspected scabies treated with Permethrin x 2 doses Stage 2 pressure ucler (L heel / M medial heel) - present on admission Stage 1 bilateral buttock - present on admission seen by cnc set up operator with following instructions: Woundres Gel for the heel + Foam dressing Barrier cream Continue other usual decub preacutions -- nutrition + air loss bed + nutrition (on supplements), etc Dispo: Placement pending, guardianship guaranteed by court but CM still waiting paperwork Quality Stroke Does the patient have a stroke diagnosis?: No VTE Prior VTE?: No VTE Risk Level:: Medical - moderate - high VTE Device Contraindication: N/A - Device Ordered VTE Drug Contraindication: N/A - Med Ordered
[2021-08-03] MEDS: OLANZapine 5 MG TABLET PO (20:15)
[2021-08-03] MEDS: traZODone HCL 50 MG TABLET PO (20:15)
[2021-08-04] VITALS: BP 129/60; PULSE 61; RESP 18; TEMP 36.4; O2SAT 96
[2021-08-04] MEDS: Omeprazole 20 MG CAPSULE.DR PO (06:38)
[2021-08-04 08:00] VITALS: RESP 18; O2SAT 98
--- NOTE | 2021-08-04 09:36 | MHC.SL.SWA ---
Speech Pathologist Impression: Oralpharyngeal Dysphagia Risk of Aspiration Due to: History of Pneumonia Reduced Cognition Dysphasia Diet Status: Upgrade Liquid Consistency and Strategies for Safe Swallow: Liquid Intake Recommendation: Thin Liquid Intake Strategies: Small Sips Solid Food Consistency: Dietary Recommendations: Grnd/Mech Altered (NDD2) Additional Modifications to Solid Foods: Alternate liquids with solids to clear any oral residue. Oral Medication Intake: Crushed with Puree Compensatory Strategies and Precautions to be Taken for Safe Swallow: Sitting Upright (90 deg) Liquids from Cup Liquids from Straw Small Bites and Sips Alternate Liquids/Solids Oral Check Supervision While Eating and Drinking for Safe Swallow: Intermittent Supervision to ensure aspiration precautions and small sips Foods to Avoid: Swallowing Recommended Treatments: Compens. Strategy Educat. Recommendation for Speech: Inpatient Speech Therapy Comment: 08/04/21: Pt evaluated in his room. He was alert, calm and cooperative. He tolerated thin liquids via teaspoon, cup sip and straw without any overt s/s of aspiration. No cough or wet voice observed. Patient tolerated good clearance of ground/mech altered NDD2 solids with minimal oral residue which successfully cleared wtih liquid wash. Patient can feed himself but requires intermittent supervision for assistance and to ensure following of aspiration precautions: sitting upright, slow pace, alternating solids with liquids, small bites/sips. HOMEBOUND TEACHER will continue to follow during inpatient stay M-F to ensure tolerance of diet. Frequency/Duration: Date Range for Service Req: Timeline to reassess: Nondestructive Tester Clinican/Clinical Fellow: No Supervisory Statement: I have reviewed and agree with the student/clinical fellow's documentation: N/A Speech Language Pathologist: Merry Tony M.A., [facility]HOMEBOUND TEACHER
[2021-08-04] MEDS: Thiamine HCL 100 MG TABLET PO (09:49)
[2021-08-04] MEDS: Sennosides 8.6 MG TABLET PO (09:49)
[2021-08-04] MEDS: Folic Acid 1 MG TABLET PO (09:49)
[2021-08-04] MEDS: Heparin Sodium,Porcine 5,000 UNIT/ML VIAL 5000 UNIT SUBCUT ×2 (09:49→21:19)
--- NOTE | 2021-08-04 10:34 | HO.PM.IMPN ---
Subjective Subjective Date of Service: 08/04/21 Interval History: no complaints Cardiovascular Cardiovascular: Reports no additional cardiovascular complaints Respiratory Respiratory: Reports no additional respiratory complaints Physical Exam Vital Signs: Vital Signs: Last Vital Signs Temp 97.6 F 08/04/21 00:00 Pulse 61 08/04/21 00:00 Resp 18 08/04/21 08:00 BP 129/60 08/04/21 00:00 Pulse Ox 98 08/04/21 08:00 BMI result Body Mass Index 21.1 Const Other:?Constitutional : Alert, disoriented, not in distress Neck : Normal inspection, Supple Respiratory :? Chest moving bilaterally, no respiratory distress Neurological : Alert & disoriented, No focal deficit Objective Data Active Medications Acetaminophen (Acetaminophen 325 Mg Tablet) 650 mg PO Q4H PRN PRN Reason: mild pain Last Admin: 07/15/21 09:07 Dose: 650 mg Documented by: COTEMA Folic Acid (Folic Acid 1 Mg Tablet) 1 mg PO DAILY [facility] Last Admin: 08/04/21 09:49 Dose: 1 mg Documented by: SARA Heparin Sodium (Porcine) (Heparin Sodium,Porcine 5,000 Unit/Ml Vial) 5,000 unit SUBCUT Q12H [facility] Last Admin: 08/04/21 09:49 Dose: 5,000 unit Documented by: SARA Hydroxyzine HCl (Hydroxyzine Hcl 50 Mg/Ml Vial) 25 mg IM Q6H PRN PRN Reason: anxiety/restlessness Last Admin: 08/02/21 04:02 Dose: 25 mg Documented by: SYLVIA Olanzapine (Olanzapine 5 Mg Tablet) 5 mg PO BEDTIME [facility] Last Admin: 08/03/21 20:15 Dose: 5 mg Documented by: ARELY Omeprazole (Omeprazole 20 Mg Capsule.Dr) 20 mg PO DAILY@0630 [facility] Last Admin: 08/04/21 06:38 Dose: 20 mg Documented by: ARELY Pharmacy Consult (Consult Rx Perform Med Rec) 1 each MISCELLANE ONCE PRN PRN Reason: Consult order Senna (Sennosides 8.6 Mg Tablet) 8.6 mg PO DAILY [facility] Last Admin: 08/04/21 09:49 Dose: 8.6 mg Documented by: SARA Thiamine HCl (Thiamine Hcl 100 Mg Tablet) 100 mg PO DAILY [facility] Last Admin: 08/04/21 09:49 Dose: 100 mg Documented by: SARA Trazodone HCl (Trazodone Hcl 50 Mg Tablet) 50 mg PO BEDTIME [facility] Last Admin: 08/03/21 20:15 Dose: 50 mg Documented by: ARELY Labs CBC & Chem 7: 06/12/21 05:12 06/12/21 05:12 Assessment and Plan (1) Dementia with behavioral disturbance: Status: Acute Assessment and Plan: hospital d#67 75 yo M who presented to the ED on 05/23/21 for AMS and failure to thrive. He was initially going to be placed at a facility, but on 05/29 was noted to have cough and a CXR revealed a new R base infiltrate concerning for aspiration pneumonia has completed Abx course and now awaiting placement No Acute issues Received COVID vaccine Dementia with behavioral disturbances Alert and interactive Continue medications per psych Evaluated by psych -- does not have capacity Aspiration Pneumonia completed treatment Diet -- nectar thick and [facility] Suspected scabies treated with Permethrin x 2 doses Stage 2 pressure ucler (L heel / M medial heel) - present on admission Stage 1 bilateral buttock - present on admission seen by curatorial specialist with following instructions: Woundres Gel for the heel + Foam dressing Barrier cream Continue other usual decub preacutions -- nutrition + air loss bed + nutrition (on supplements), etc Dispo: Placement pending, guardianship guaranteed by court but CM still waiting paperwork Quality Stroke Does the patient have a stroke diagnosis?: No VTE Prior VTE?: No VTE Risk Level:: Medical - moderate - high VTE Device Contraindication: N/A - Device Ordered VTE Drug Contraindication: N/A - Med Ordered
[2021-08-04 16:00] VITALS: BP 141/63; PULSE 70; RESP 17; TEMP 36.4; O2SAT 96
[2021-08-04] MEDS: traZODone HCL 50 MG TABLET PO (21:19)
[2021-08-04] MEDS: OLANZapine 5 MG TABLET PO (21:19)
[2021-08-04 23:52] VITALS: BP 173/62; PULSE 69; RESP 18; TEMP 36.1; O2SAT 97
[2021-08-05] MEDS: Omeprazole 20 MG CAPSULE.DR PO (05:43)
[2021-08-05 08:00] VITALS: BP 136/70; PULSE 98; RESP 20; TEMP 36.2; O2SAT 99
--- NOTE | 2021-08-05 09:49 | P.PNIM_ITS ---
Subjective Subjective Date of Service: 08/05/21 Interval History: no complaints Cardiovascular Cardiovascular: Reports no additional cardiovascular complaints Respiratory Respiratory: Reports no additional respiratory complaints Physical Exam Vital Signs: Vital Signs: Last Vital Signs Temp 97.2 F 08/05/21 08:00 Pulse 98 08/05/21 08:00 Resp 20 08/05/21 08:00 BP 136/70 08/05/21 08:00 Pulse Ox 99 08/05/21 08:00 BMI result Body Mass Index 21.1 onst Other:?Constitutional : Alert, disoriented, not in distress Neck : Normal inspection, Supple Respiratory :? Chest moving bilaterally, no respiratory distress Neurological : Alert & disoriented, No focal deficit Objective Data Active Medications Acetaminophen (Acetaminophen 325 Mg Tablet) 650 mg PO Q4H PRN PRN Reason: mild pain Last Admin: 07/15/21 09:07 Dose: 650 mg Documented by: COTEMA Folic Acid (Folic Acid 1 Mg Tablet) 1 mg PO DAILY [facility] Last Admin: 08/04/21 09:49 Dose: 1 mg Documented by: SARA Heparin Sodium (Porcine) (Heparin Sodium,Porcine 5,000 Unit/Ml Vial) 5,000 unit SUBCUT Q12H [facility] Last Admin: 08/04/21 21:19 Dose: 5,000 unit Documented by: ARELY Hydroxyzine HCl (Hydroxyzine Hcl 50 Mg/Ml Vial) 25 mg IM Q6H PRN PRN Reason: anxiety/restlessness Last Admin: 08/02/21 04:02 Dose: 25 mg Documented by: SYLVIA Olanzapine (Olanzapine 5 Mg Tablet) 5 mg PO BEDTIME [facility] Last Admin: 08/04/21 21:19 Dose: 5 mg Documented by: ARELY Omeprazole (Omeprazole 20 Mg Capsule.Dr) 20 mg PO DAILY@0630 [facility] Last Admin: 08/05/21 05:43 Dose: 20 mg Documented by: ARELY Pharmacy Consult (Consult Rx Perform Med Rec) 1 each MISCELLANE ONCE PRN PRN Reason: Consult order Senna (Sennosides 8.6 Mg Tablet) 8.6 mg PO DAILY [facility] Last Admin: 08/04/21 09:49 Dose: 8.6 mg Documented by: SARA Thiamine HCl (Thiamine Hcl 100 Mg Tablet) 100 mg PO DAILY [facility] Last Admin: 08/04/21 09:49 Dose: 100 mg Documented by: SARA Trazodone HCl (Trazodone Hcl 50 Mg Tablet) 50 mg PO BEDTIME [facility] Last Admin: 08/04/21 21:19 Dose: 50 mg Documented by: ARELY Labs CBC & Chem 7: 06/12/21 05:12 06/12/21 05:12 Assessment and Plan (1) Dementia with behavioral disturbance: Status: Acute Assessment and Plan: hospital d#68 75 yo M who presented to the ED on 05/23/21 for AMS and failure to thrive. He was initially going to be placed at a facility, but on 05/29 was noted to have cough and a CXR revealed a new R base infiltrate concerning for aspiration pneumonia has completed Abx course and now awaiting placement No Acute issues Received COVID vaccine Dementia with behavioral disturbances Alert and interactive Continue medications per psych Evaluated by psych -- does not have capacity Aspiration Pneumonia completed treatment Diet -- nectar thick and Ground/mech alerted Suspected scabies treated with Permethrin x 2 doses Stage 2 pressure ucler (L heel / M medial heel) - present on admission Stage 1 bilateral buttock - present on admission seen by business project manager with following instructions: Woundres Gel for the heel + Foam dressing Barrier cream Continue other usual decub preacutions -- nutrition + air loss bed + nutrition (on supplements), etc Dispo: Placement pending Quality Stroke Does the patient have a stroke diagnosis?: No VTE Prior VTE?: No VTE Risk Level:: Medical - moderate - high VTE Device Contraindication: N/A - Device Ordered VTE Drug Contraindication: N/A - Med Ordered
[2021-08-05] MEDS: Thiamine HCL 100 MG TABLET PO (10:23)
[2021-08-05] MEDS: Heparin Sodium,Porcine 5,000 UNIT/ML VIAL 5000 UNIT SUBCUT ×2 (10:23→20:29)
[2021-08-05] MEDS: Sennosides 8.6 MG TABLET PO (10:23)
[2021-08-05] MEDS: Folic Acid 1 MG TABLET PO (10:23)
[2021-08-05 16:00] VITALS: BP 123/66; PULSE 83; RESP 18; TEMP 37.2; O2SAT 94
[2021-08-05] MEDS: traZODone HCL 50 MG TABLET PO (20:28)
[2021-08-05] MEDS: OLANZapine 5 MG TABLET PO (20:29)
[2021-08-06] VITALS: BP 134/66; PULSE 59; RESP 18; TEMP 36.6; O2SAT 95
[2021-08-06] MEDS: Omeprazole 20 MG CAPSULE.DR PO (06:28)
[2021-08-06 07:06] VITALS: BP 122/66; PULSE 50; RESP 18; TEMP 36.6; O2SAT 96
[2021-08-06] MEDS: Thiamine HCL 100 MG TABLET PO (07:22)
[2021-08-06] MEDS: Folic Acid 1 MG TABLET PO (07:23)
[2021-08-06] MEDS: Heparin Sodium,Porcine 5,000 UNIT/ML VIAL 5000 UNIT SUBCUT ×2 (07:23→20:26)
[2021-08-06] MEDS: Sennosides 8.6 MG TABLET PO (07:23)
--- NOTE | 2021-08-06 09:51 | P.PNIM_ITS ---
Subjective Subjective Date of Service: 08/06/21 Interval History: no complaints Cardiovascular Cardiovascular: Reports no additional cardiovascular complaints Respiratory Respiratory: Reports no additional respiratory complaints Physical Exam Vital Signs: Vital Signs: Last Vital Signs Temp 97.8 F 08/06/21 07:06 Pulse 50 08/06/21 07:06 Resp 18 08/06/21 07:06 BP 122/66 08/06/21 07:06 Pulse Ox 96 08/06/21 07:06 BMI result Body Mass Index 21.1 onst Other:?Constitutional : Alert, disoriented, not in distress Neck : Normal inspection, Supple Respiratory :? Chest moving bilaterally, no respiratory distress Neurological : Alert & disoriented, No focal deficit Objective Data Active Medications Acetaminophen (Acetaminophen 325 Mg Tablet) 650 mg PO Q4H PRN PRN Reason: mild pain Last Admin: 07/15/21 09:07 Dose: 650 mg Documented by: WANDY Folic Acid (Folic Acid 1 Mg Tablet) 1 mg PO DAILY [facility] Last Admin: 08/06/21 07:23 Dose: 1 mg Documented by: APARNA Heparin Sodium (Porcine) (Heparin Sodium,Porcine 5,000 Unit/Ml Vial) 5,000 unit SUBCUT Q12H [facility] Last Admin: 08/06/21 07:23 Dose: 5,000 unit Documented by: APARNA Hydroxyzine HCl (Hydroxyzine Hcl 50 Mg/Ml Vial) 25 mg IM Q6H PRN PRN Reason: anxiety/restlessness Last Admin: 08/02/21 04:02 Dose: 25 mg Documented by: SYLVIA Olanzapine (Olanzapine 5 Mg Tablet) 5 mg PO BEDTIME [facility] Last Admin: 08/05/21 20:29 Dose: 5 mg Documented by: ARELY Omeprazole (Omeprazole 20 Mg Capsule.Dr) 20 mg PO DAILY@0630 [facility] Last Admin: 08/06/21 06:28 Dose: 20 mg Documented by: ARELY Pharmacy Consult (Consult Rx Perform Med Rec) 1 each MISCELLANE ONCE PRN PRN Reason: Consult order Senna (Sennosides 8.6 Mg Tablet) 8.6 mg PO DAILY [facility] Last Admin: 08/06/21 07:23 Dose: 8.6 mg Documented by: APARNA Thiamine HCl (Thiamine Hcl 100 Mg Tablet) 100 mg PO DAILY [facility] Last Admin: 08/06/21 07:22 Dose: 100 mg Documented by: APARNA Trazodone HCl (Trazodone Hcl 50 Mg Tablet) 50 mg PO BEDTIME [facility] Last Admin: 08/05/21 20:28 Dose: 50 mg Documented by: ARELY Labs CBC & Chem 7: 06/12/21 05:12 06/12/21 05:12 Assessment and Plan (1) Dementia with behavioral disturbance: Status: Acute Assessment and Plan: hospital d#69 75 yo M who presented to the ED on 05/23/21 for AMS and failure to thrive. He w as initially going to be placed at a facility, but on 05/29 was noted to have cough and a CXR revealed a new R base infiltrate concerning for aspiration pneumonia has completed Abx course and now awaiting placement No Acute issues Received COVID vaccine Dementia with behavioral disturbances Alert and interactive Continue medications per psych Evaluated by psych -- does not have capacity Aspiration Pneumonia completed treatment Diet -- nectar thick and Ground/mech alerted Suspected scabies treated with Permethrin x 2 doses Stage 2 pressure ucler (L heel / M medial heel) - present on admission Stage 1 bilateral buttock - present on admission seen by door installer with following instructions: Woundres Gel for the heel + Foam dressing Barrier cream Continue other usual decub preacutions -- nutrition + air loss bed + nutrition (on supplements), etc Dispo: Placement pending Quality Stroke Does the patient have a stroke diagnosis?: No VTE Prior VTE?: No VTE Risk Level:: Medical - moderate - high VTE Device Contraindication: N/A - Device Ordered VTE Drug Contraindication: N/A - Med Ordered
--- NOTE | 2021-08-06 11:47 | MHC.CLN ---
F/U DIET=2 GRAM SODIUM, NDD2, THIN LIQUIDS; SUPPLEMENT ENSURE TID (1050 KCAL, 60 G PROTEIN). NO SKIN ISSUES WITH ALL PRIOR AREAS APPEAR TO BE HEALED. INTAKE AT MEALS USUALLY 100%. RD TO FOLLOW WEEKLY.
[2021-08-06 16:00] VITALS: BP 154/74; PULSE 73; RESP 18; TEMP 36.4; O2SAT 96
[2021-08-06 16:49] VITALS: BMI 22.1
[2021-08-06] MEDS: OLANZapine 5 MG TABLET PO (20:26)
[2021-08-06] MEDS: traZODone HCL 50 MG TABLET PO (20:26)
[2021-08-06 23:48] VITALS: BP 148/63; PULSE 70; RESP 18; TEMP 36.1; O2SAT 96
[2021-08-07 07:53] VITALS: BP 140/71; PULSE 55; RESP 18; TEMP 35.7; O2SAT 97
[2021-08-07] MEDS: Folic Acid 1 MG TABLET PO (09:05)
[2021-08-07] MEDS: Thiamine HCL 100 MG TABLET PO (09:05)
[2021-08-07] MEDS: Sennosides 8.6 MG TABLET PO (09:06)
[2021-08-07] MEDS: Heparin Sodium,Porcine 5,000 UNIT/ML VIAL 5000 UNIT SUBCUT ×2 (09:06→19:52)
--- NOTE | 2021-08-07 11:06 | P.PNIM_ITS ---
Subjective Subjective Date of Service: 08/07/21 Interval History: no complaints Cardiovascular Cardiovascular: Reports no additional cardiovascular complaints Respiratory Respiratory: Reports no additional respiratory complaints Physical Exam Vital Signs: Vital Signs: Last Vital Signs Temp 96.3 F L 08/07/21 07:53 Pulse 55 08/07/21 07:53 Resp 18 08/07/21 07:53 BP 140/71 H 08/07/21 07:53 Pulse Ox 97 08/07/21 07:53 BMI result Body Mass Index 22.1 const Other:?Constitutional : Alert, disoriented, not in distress Neck : Normal inspection, Supple Respiratory :? Chest moving bilaterally, no respiratory distress Neurological : Alert & disoriented, No focal deficit Objective Data Active Medications Acetaminophen (Acetaminophen 325 Mg Tablet) 650 mg PO Q4H PRN PRN Reason: mild pain Last Admin: 07/15/21 09:07 Dose: 650 mg Documented by: WANDY Folic Acid (Folic Acid 1 Mg Tablet) 1 mg PO DAILY [facility] Last Admin: 08/07/21 09:05 Dose: 1 mg Documented by: LAURENCE Heparin Sodium (Porcine) (Heparin Sodium,Porcine 5,000 Unit/Ml Vial) 5,000 unit SUBCUT Q12H [facility] Last Admin: 08/07/21 09:06 Dose: 5,000 unit Documented by: LAURENCE Hydroxyzine HCl (Hydroxyzine Hcl 50 Mg/Ml Vial) 25 mg IM Q6H PRN PRN Reason: anxiety/restlessness Last Admin: 08/02/21 04:02 Dose: 25 mg Documented by: SYLVIA Olanzapine (Olanzapine 5 Mg Tablet) 5 mg PO BEDTIME [facility] Last Admin: 08/06/21 20:26 Dose: 5 mg Documented by: ELODIA Omeprazole (Omeprazole 20 Mg Capsule.Dr) 20 mg PO DAILY@0630 [facility] Last Admin: 08/07/21 06:01 Dose: Not Given Documented by: ELODIA Non-Admin Reason: Patient Refused Pharmacy Consult (Consult Rx Perform Med Rec) 1 each MISCELLANE ONCE PRN PRN Reason: Consult order Senna (Sennosides 8.6 Mg Tablet) 8.6 mg PO DAILY [facility] Last Admin: 08/07/21 09:06 Dose: 8.6 mg Documented by: LAURENCE Thiamine HCl (Thiamine Hcl 100 Mg Tablet) 100 mg PO DAILY [facility] Last Admin: 08/07/21 09:05 Dose: 100 mg Documented by: LAURENCE Trazodone HCl (Trazodone Hcl 50 Mg Tablet) 50 mg PO BEDTIME [facility] Last Admin: 08/06/21 20:26 Dose: 50 mg Documented by: ELODIA Labs CBC & Chem 7: 06/12/21 05:12 06/12/21 05:12 Assessment and Plan (1) Dementia with behavioral disturbance: Status: Acute Assessment and Plan: hospital d#70 75 yo M who presented to the ED on 05/23/21 for AMS and failure to thrive. He was initially going to be placed at a facility, but on 05/29 was noted to have cough and a CXR revealed a new R base infiltrate concerning for aspiration pneumonia has completed Abx course and now awaiting placement No Acute issues Received COVID vaccine Dementia with behavioral disturbances Alert and interactive Continue medications per psych Evaluated by psych -- does not have capacity Aspiration Pneumonia completed treatment Diet -- nectar thick and Ground/mech alerted Suspected scabies treated with Permethrin x 2 doses Stage 2 pressure ucler (L heel / M medial heel) - present on admission Stage 1 bilateral buttock - present on admission seen by testing and regulating chief with following instructions: Woundres Gel for the heel + Foam dressing Barrier cream Continue other usual decub preacutions -- nutrition + air loss bed + nutrition (on supplements), etc Dispo: Placement pending Quality Stroke Does the patient have a stroke diagnosis?: No VTE Prior VTE?: No VTE Risk Level:: Medical - moderate - high VTE Device Contraindication: N/A - Device Ordered VTE Drug Contraindication: N/A - Med Ordered
[2021-08-07 16:00] VITALS: BP 111/54; PULSE 59; RESP 12; TEMP 37; O2SAT 94
[2021-08-07] MEDS: OLANZapine 5 MG TABLET PO (19:52)
[2021-08-07] MEDS: traZODone HCL 50 MG TABLET PO (19:52)
[2021-08-08] VITALS: BP 158/68; PULSE 65; RESP 14; TEMP 36.3; O2SAT 95
[2021-08-08] MEDS: Omeprazole 20 MG CAPSULE.DR PO (05:29)
[2021-08-08 08:00] VITALS: BP 130/56; PULSE 50; RESP 18; TEMP 36.2; O2SAT 94
[2021-08-08] MEDS: Sennosides 8.6 MG TABLET PO (10:43)
[2021-08-08] MEDS: Thiamine HCL 100 MG TABLET PO (10:43)
[2021-08-08] MEDS: Heparin Sodium,Porcine 5,000 UNIT/ML VIAL 5000 UNIT SUBCUT ×2 (10:44→21:14)
[2021-08-08] MEDS: Folic Acid 1 MG TABLET PO (10:44)
--- NOTE | 2021-08-08 13:21 | P.PNIM_ITS ---
Subjective Subjective Date of Service: 08/08/21 Interval History: no new events no complaints Review of Systems Review of Systems: Yes Unobtainable due to mental status Physical Exam Vital Signs: Vital Signs: Last Vital Signs Temp 97.1 F 08/08/21 08:00 Pulse 50 08/08/21 08:00 Resp 18 08/08/21 08:00 BP 130/56 L 08/08/21 08:00 Pulse Ox 94 08/08/21 08:00 BMI result Body Mass Index 22.1 Gen: in no acute distress Lungs: clear to auscultation bilaterally Heart: regular rate and rhythm Neuro: disoriented Psych: impaired insight Objective Data Active Medications Acetaminophen (Acetaminophen 325 Mg Tablet) 650 mg PO Q4H PRN PRN Reason: mild pain Last Admin: 07/15/21 09:07 Dose: 650 mg Documented by: COTEMA Folic Acid (Folic Acid 1 Mg Tablet) 1 mg PO DAILY [facility] Last Admin: 08/08/21 10:44 Dose: 1 mg Documented by: MAITE Heparin Sodium (Porcine) (Heparin Sodium,Porcine 5,000 Unit/Ml Vial) 5,000 unit SUBCUT Q12H [facility] Last Admin: 08/08/21 10:44 Dose: 5,000 unit Documented by: MAITE Hydroxyzine HCl (Hydroxyzine Hcl 50 Mg/Ml Vial) 25 mg IM Q6H PRN PRN Reason: anxiety/restlessness Last Admin: 08/02/21 04:02 Dose: 25 mg Documented by: SLYVIA Olanzapine (Olanzapine 5 Mg Tablet) 5 mg PO BEDTIME [facility] Last Admin: 08/07/21 19:52 Dose: 5 mg Documented by: ELODIA Omeprazole (Omeprazole 20 Mg Capsule.) 20 mg PO DAILY@0630 [facility] Last Admin: 08/08/21 05:29 Dose: 20 mg Documented by: ELODIA Pharmacy Consult (Consult Rx Perform Med Rec) 1 each MISCELLANE ONCE PRN PRN Reason: Consult order Senna (Sennosides 8.6 Mg Tablet) 8.6 mg PO DAILY [facility] Last Admin: 08/08/21 10:43 Dose: 8.6 mg Documented by: MAITE Thiamine HCl (Thiamine Hcl 100 Mg Tablet) 100 mg PO DAILY [facility] Last Admin: 01/12/22 10:43 Dose: 100 mg Documented by: MAITE Trazodone HCl (Trazodone Hcl 50 Mg Tablet) 50 mg PO BEDTIME [facility] Last Admin: 08/07/21 19:52 Dose: 50 mg Documented by: ELODIA Labs CBC & Chem 7: 06/12/21 05:12 06/12/21 05:12 Assessment and Plan (1) Dementia with behavioral disturbance: Status: Acute Assessment and Plan: hospital d#71 75 yo M who presented to the ED on 05/23/21 for AMS and failure to thrive. He was initially going to be placed at a facility, but on 05/29 was noted to have cough and a CXR revealed a new R base infiltrate concerning for aspiration pneumonia has completed Abx course and now awaiting placement No Acute issues Received COVID vaccine Dementia with behavioral disturbances Alert and interactive Continue medications per psych Evaluated by psych -- does not have capacity Aspiration Pneumonia completed treatment Diet -- nectar thick and Ground/mech alerted Suspected scabies treated with Permethrin x 2 doses Stage 2 pressure ucler (L heel / M medial heel) - present on admission Stage 1 bilateral buttock - present on admission seen by administration assistant with following instructions: Woundres Gel for the heel + Foam dressing Barrier cream Continue other usual decub preacutions -- nutrition + air loss bed + nutrition (on supplements), etc Dispo: Placement pending Quality Stroke Does the patient have a stroke diagnosis?: No VTE Prior VTE?: No VTE Risk Level:: Medical - moderate - high VTE Device Contraindication: N/A - Device Ordered VTE Drug Contraindication: N/A - Med Ordered
[2021-08-08 16:00] VITALS: BP 130/61; PULSE 50; RESP 16; TEMP 36.5; O2SAT 97
[2021-08-08] MEDS: OLANZapine 5 MG TABLET PO (21:14)
[2021-08-08] MEDS: traZODone HCL 50 MG TABLET PO (21:14)
[2021-08-08 23:27] VITALS: BP 149/74; PULSE 67; RESP 18; TEMP 36.6; O2SAT 97
[2021-08-09 07:57] VITALS: BP 154/60; PULSE 77; RESP 15; TEMP 36.4; O2SAT 94
[2021-08-09] MEDS: Omeprazole 20 MG CAPSULE.DR PO (08:43)
[2021-08-09] MEDS: Folic Acid 1 MG TABLET PO (08:43)
[2021-08-09] MEDS: Thiamine HCL 100 MG TABLET PO (08:43)
[2021-08-09] MEDS: Sennosides 8.6 MG TABLET PO (08:43)
[2021-08-09] MEDS: Heparin Sodium,Porcine 5,000 UNIT/ML VIAL 5000 UNIT SUBCUT ×2 (08:43→20:56)
--- NOTE | 2021-08-09 11:16 | HO.PM.IMPN ---
Subjective Subjective Date of Service: 08/09/21 Interval History: Wants to ambulate, unable to provide meaningful history due to dementia, no acute issues overnight. Review of Systems Unobtainable due to mental status Physical Exam Vital Signs: Vital Signs: Last Vital Signs Temp 97.5 F 08/09/21 07:57 Pulse 77 08/09/21 07:57 Resp 15 08/09/21 07:57 BP 154/60 H 08/09/21 07:57 Pulse Ox 94 08/09/21 07:57 BMI result Body Mass Index 22.1 Gen: no acute distress Neck no JVD Lungs: clear to auscultation bilaterally Heart: regular rate and rhythm Neuro: disoriented Psych: impaired insight Objective Data Active Medications Acetaminophen (Acetaminophen 325 Mg Tablet) 650 mg PO Q4H PRN PRN Reason: mild pain Last Admin: 07/15/21 09:07 Dose: 650 mg Documented by: WANDY Folic Acid (Folic Acid 1 Mg Tablet) 1 mg PO DAILY [facility] Last Admin: 08/09/21 08:43 Dose: 1 mg Documented by: GOLDEN Heparin Sodium (Porcine) (Heparin Sodium,Porcine 5,000 Unit/Ml Vial) 5,000 unit SUBCUT Q12H [facility] Last Admin: 08/09/21 08:43 Dose: 5,000 unit Documented by: GOLDEN Hydroxyzine HCl (Hydroxyzine Hcl 50 Mg/Ml Vial) 25 mg IM Q6H PRN PRN Reason: anxiety/restlessness Last Admin: 08/02/21 04:02 Dose: 25 mg Documented by: SYLVIA Olanzapine (Olanzapine 5 Mg Tablet) 5 mg PO BEDTIME [facility] Last Admin: 08/08/21 21:14 Dose: 5 mg Documented by: SYLVIA Omeprazole (Omeprazole 20 Mg Capsule.) 20 mg PO DAILY@0630 [facility] Last Admin: 08/09/21 08:43 Dose: 20 mg Documented by: GOLDEN Pharmacy Consult (Consult Rx Perform Med Rec) 1 each MISCELLANE ONCE PRN PRN Reason: Consult order Senna (Sennosides 8.6 Mg Tablet) 8.6 mg PO DAILY [facility] Last Admin: 08/09/21 08:43 Dose: 8.6 mg Documented by: GOLDEN Thiamine HCl (Thiamine Hcl 100 Mg Tablet) 100 mg PO DAILY [facility] Last Admin: 08/09/21 08:43 Dose: 100 mg Documented by: GOLDEN Trazodone HCl (Trazodone Hcl 50 Mg Tablet) 50 mg PO BEDTIME [facility] Last Admin: 08/08/21 21:14 Dose: 50 mg Documented by: YSLVIA Labs CBC & Chem 7: 06/12/21 05:12 06/12/21 05:12 Assessment and Plan (1) Adult failure to thrive: Status: Acute (2) Dementia with behavioral disturbance: Status: Acute (3) Aspiration pneumonia: Status: Acute (4) Rash: Status: Acute Assessment and Plan: hospital d#72 75 yo M who presented to the ED on 05/23/21 for AMS and failure to thrive. He was initially going to be placed at a facility, but on 05/29 was noted to have cough and a CXR revealed a new R base infiltrate concerning for aspiration pneumonia has completed Abx course and now awaiting placement No Acute issues Received COVID vaccine Dementia with behavioral disturbances Alert and interactive Continue medications per psych, seen by psych- does not have capacity Aspiration Pneumonia completed treatment Diet -- nectar thick and [facility] Suspected scabies treated with Permethrin x 2 doses Stage 2 pressure ucler (L heel / M medial heel) - present on admission Stage 1 bilateral buttock - present on admission Continue wound care Woundres Gel for the heel + Foam dressing Continue Barrier cream, + air loss bed + high-protein diet (on supplements), etc Dispo: Placement pending Quality Stroke Does the patient have a stroke diagnosis?: No VTE Prior VTE?: No VTE Risk Level:: Medical - moderate - high VTE Device Contraindication: N/A - Device Ordered VTE Drug Contraindication: N/A - Med Ordered
[2021-08-09] MEDS: hydrOXYzine HCL 50 MG/ML VIAL 25 MG IM (15:11)
[2021-08-09 16:00] VITALS: BP 158/71; PULSE 62; RESP 16; TEMP 36.9; O2SAT 97
[2021-08-09] MEDS: OLANZapine 5 MG TABLET PO (20:56)
[2021-08-09] MEDS: traZODone HCL 50 MG TABLET PO (20:56)
[2021-08-10] VITALS: BP 132/73; PULSE 71; RESP 18; TEMP 36.2; O2SAT 97
[2021-08-10] MEDS: Omeprazole 20 MG CAPSULE.DR PO (07:07)
[2021-08-10 08:19] VITALS: BP 122/60; PULSE 69; RESP 15; TEMP 36.3; O2SAT 96
--- NOTE | 2021-08-10 08:54 | MHC.CM.PN ---
MESSAGE LEFT FOR GUARDIAN/CONSERVATOR, CALENDER RUNNER LATOYA AT [id number] [facility] IS FOLLOWING AND ACTIVELY RESPONDING GUARDIAN PREFERS A LOCAL FACILITY. GUARDIAN CAN REACH OUT TO [facility] TO ASSIST WITH FACILITATING A TRANSISITION
[2021-08-10] MEDS: Heparin Sodium,Porcine 5,000 UNIT/ML VIAL 5000 UNIT SUBCUT ×2 (08:58→19:57)
--- NOTE | 2021-08-10 08:58 | MHC.CLN ---
F/U DIET=2 GRAM SODIUM, NDD2, THIN LIQUIDS; SUPPLEMENT ENSURE TID (1050 KCAL, 39 G PROTEIN). NO SKIN ISSUES WITH ALL PRIOR AREAS APPEAR TO BE HEALED. INTAKE AT MEALS USUALLY 100%. FAVORABLE WEIGHT GAIN SINCE ADMISSION, +4.3%. BMI=22.1 AND IS 94% OF IBW. NO LONGER AT HIGH NUTRITIONAL RISK DUE TO FAVORABLE WEIGHT GAIN, USUALLY EXCELLENT INTAKE, AND HEALED WOUNDS. CONTINUE CURRENT DIET AND SUPPLEMENT. RD TO FOLLOW WEEKLY.
[2021-08-10] MEDS: Folic Acid 1 MG TABLET PO (08:59)
[2021-08-10] MEDS: Sennosides 8.6 MG TABLET PO (08:59)
[2021-08-10] MEDS: Thiamine HCL 100 MG TABLET PO (08:59)
[2021-08-10 11:56] VITALS: BP 111/67; PULSE 51; RESP 18; TEMP 36.6; O2SAT 99
--- NOTE | 2021-08-10 14:51 | HO.PM.IMPN ---
Subjective Subjective Date of Service: 08/10/21 Interval History: Unable to provide meaningful history due to dementia, offers no acute complaints resting comfortably in bed. Review of Systems Review of Systems: Yes Unobtainable due to mental status Physical Exam Vital Signs: Vital Signs: Last Vital Signs Temp 97.8 F 08/10/21 11:56 Pulse 51 08/10/21 11:56 Resp 18 08/10/21 11:56 BP 111/67 08/10/21 11:56 Pulse Ox 99 08/10/21 11:56 BMI result Body Mass Index 22.1 Gen:? no acute distress Neck no JVD Lungs: clear to auscultation bilaterally Heart: regular rate and rhythm Abdomen obese soft Neuro: disoriented Psych: impaired insight Objective Data Active Medications Acetaminophen (Acetaminophen 325 Mg Tablet) 650 mg PO Q4H PRN PRN Reason: mild pain Last Admin: 07/15/21 09:07 Dose: 650 mg Documented by: WANDY Folic Acid (Folic Acid 1 Mg Tablet) 1 mg PO DAILY [facility] Last Admin: 08/10/21 08:59 Dose: 1 mg Documented by: GOLDEN Heparin Sodium (Porcine) (Heparin Sodium,Porcine 5,000 Unit/Ml Vial) 5,000 unit SUBCUT Q12H [facility] Last Admin: 08/10/21 08:58 Dose: 5,000 unit Documented by: GOLDEN Hydroxyzine HCl (Hydroxyzine Hcl 50 Mg/Ml Vial) 25 mg IM Q6H PRN PRN Reason: anxiety/restlessness Last Admin: 08/09/21 15:11 Dose: 25 mg Documented by: GOLDEN Olanzapine (Olanzapine 5 Mg Tablet) 5 mg PO BEDTIME [facility] Last Admin: 08/09/21 20:56 Dose: 5 mg Documented by: CESAR Omeprazole (Omeprazole 20 Mg Capsule.) 20 mg PO DAILY@0630 [facility] Last Admin: 08/10/21 07:07 Dose: 20 mg Documented by: CESAR Pharmacy Consult (Consult Rx Perform Med Rec) 1 each MISCELLANE ONCE PRN PRN Reason: Consult order Senna (Sennosides 8.6 Mg Tablet) 8.6 mg PO DAILY [facility] Last Admin: 08/10/21 08:59 Dose: 8.6 mg Documented by: GOLDEN Thiamine HCl (Thiamine Hcl 100 Mg Tablet) 100 mg PO DAILY [facility] Last Admin: 08/10/21 08:59 Dose: 100 mg Documented by: GOLDEN Trazodone HCl (Trazodone Hcl 50 Mg Tablet) 50 mg PO BEDTIME [facility] Last Admin: 08/09/21 20:56 Dose: 50 mg Documented by: CESAR Labs CBC & Chem 7: 06/12/21 05:12 06/12/21 05:12 Assessment and Plan (1) Rash: Status: Acute (2) Adult failure to thrive: Status: Acute (3) Dementia with behavioral disturbance: Status: Acute Assessment and Plan: 75 yo M who presented to the ED on 05/23/21 for AMS and failure to thrive. He was initially going to be placed at a facility, but on 05/29 was noted to have cough and a CXR revealed a new R base infiltrate concerning for aspiration pneumonia has completed Abx course and now awaiting placement, received COVID vaccine Dementia with behavioral disturbances Alert and interactive Continue medications per psych, seen by psych- does not have capacity Aspiration Pneumonia completed treatment Diet -- nectar thick and Ground/mech alerted Suspected scabies treated with Permethrin x 2 doses Stage 2 pressure ucler (L heel / M medial heel) - present on admission Stage 1 bilateral buttock - present on admission Continue wound care Woundres Gel for the heel + Foam dressing Continue Barrier cream, + air loss bed + high-protein diet (on supplements), etc Dispo: Placement pending Quality Stroke Does the patient have a stroke diagnosis?: No VTE Prior VTE?: No VTE Risk Level:: Medical - moderate - high VTE Device Contraindication: N/A - Device Ordered VTE Drug Contraindication: N/A - Med Ordered
[2021-08-10 15:58] VITALS: BP 127/63; PULSE 67; RESP 16; TEMP 36.2; O2SAT 95
[2021-08-11 04:15] VITALS: BP 165/64; PULSE 44; RESP 18; TEMP 36.1; O2SAT 97
[2021-08-11 08:00] VITALS: BP 121/64; PULSE 60; RESP 18; TEMP 36.2; O2SAT 98
[2021-08-11] MEDS: Sennosides 8.6 MG TABLET PO (10:43)
[2021-08-11] MEDS: Heparin Sodium,Porcine 5,000 UNIT/ML VIAL 5000 UNIT SUBCUT ×2 (10:43→20:37)
[2021-08-11] MEDS: Folic Acid 1 MG TABLET PO (10:43)
[2021-08-11] MEDS: Thiamine HCL 100 MG TABLET PO (10:43)
--- NOTE | 2021-08-11 13:10 | P.PNIM_ITS ---
Subjective Subjective Date of Service: 08/11/21 Interval History: Resting in bed, offers no acute complaints no overnight issues noted, no fevers no chills tolerating diet. Review of Systems Review of Systems: Yes all other systems are reviewed and are negative Physical Exam Vital Signs: Vital Signs: Last Vital Signs Temp 97.2 F 08/11/21 08:00 Pulse 60 08/11/21 08:00 Resp 18 08/11/21 08:00 BP 121/64 08/11/21 08:00 Pulse Ox 98 08/11/21 08:00 BMI result Body Mass Index 22.1 Constitutional : Alert, disoriented, not in distress Neck : Normal inspection, Supple Cardiovascular : RRR, S1 S2, no lower extremity edema Respiratory : Good bilateral air entry,? no crackles, wheezes or rhonchi Gastrointestinal:? soft, lax, Normal bowel sounds, Non tender Skin : Warm, Dry Neurological : Alert & disoriented, No focal deficit Objective Data Active Medications Acetaminophen (Acetaminophen 325 Mg Tablet) 650 mg PO Q4H PRN PRN Reason: mild pain Last Admin: 07/15/21 09:07 Dose: 650 mg Documented by: COTEMA Folic Acid (Folic Acid 1 Mg Tablet) 1 mg PO DAILY [facility] Last Admin: 08/11/21 10:43 Dose: 1 mg Documented by: ELODIA Heparin Sodium (Porcine) (Heparin Sodium,Porcine 5,000 Unit/Ml Vial) 5,000 unit SUBCUT Q12H [facility] Last Admin: 08/11/21 10:43 Dose: 5,000 unit Documented by: ELODIA Hydroxyzine HCl (Hydroxyzine Hcl 50 Mg/Ml Vial) 25 mg IM Q6H PRN PRN Reason: anxiety/restlessness Last Admin: 08/09/21 15:11 Dose: 25 mg Documented by: GOLDEN Olanzapine (Olanzapine 5 Mg Tablet) 5 mg PO BEDTIME [facility] Last Admin: 08/10/21 20:01 Dose: Not Given Documented by: ELODIA Non-Admin Reason: Patient Refused Omeprazole (Omeprazole 20 Mg Simran.) 20 mg PO DAILY@0630 [facility] Last Admin: 08/11/21 06:31 Dose: Not Given Documented by: ELODIA Non-Admin Reason: Patient Refused Pharmacy Consult (Consult Rx Perform Med Rec) 1 each MISCELLANE ONCE PRN PRN Reason: Consult order Senna (Sennosides 8.6 Mg Tablet) 8.6 mg PO DAILY [facility] Last Admin: 08/11/21 10:43 Dose: 8.6 mg Documented by: ELODIA Thiamine HCl (Thiamine Hcl 100 Mg Tablet) 100 mg PO DAILY [facility] Last Admin: 08/11/21 10:43 Dose: 100 mg Documented by: ELODIA Trazodone HCl (Trazodone Hcl 50 Mg Tablet) 50 mg PO BEDTIME [facility] Last Admin: 08/10/21 20:01 Dose: Not Given Documented by: ELODIA Non-Admin Reason: Patient Refused Labs CBC & Chem 7: 06/12/21 05:12 06/12/21 05:12 Assessment and Plan (1) Adult failure to thrive: Status: Acute (2) Dementia with behavioral disturbance: Status: Acute Assessment and Plan: 75 yo M who presented to the ED on 05/23/21 for AMS and failure to thrive. He was initially going to be placed at a facility, but on 05/29 was noted to have cough and a CXR revealed a new R base infiltrate concerning for aspiration pneumonia has completed Abx course and now awaiting placement, received COVID vaccine Dementia with behavioral disturbances Alert and interactive No behavioral issues noted Continue medications per psych, seen by psych- does not have capacity Aspiration Pneumonia completed treatment Continue nectar thick and Ground/mech alerted Suspected scabies treated with Permethrin x 2 doses Stage 2 pressure ucler (L heel / M medial heel) and stage I bilateral buttock- present on admission Continue wound care Foam dressing to heal Continue Barrier cream, + air loss bed + high-protein diet (on supplements), etc Dispo: Placement pending Quality Stroke Does the patient have a stroke diagnosis?: No VTE Prior VTE?: No VTE Risk Level:: Medical - moderate - high VTE Device Contraindication: N/A - Device Ordered VTE Drug Contraindication: N/A - Med Ordered
[2021-08-11 16:00] VITALS: BP 144/65; PULSE 52; RESP 18; TEMP 36.6; O2SAT 99
[2021-08-11] MEDS: OLANZapine 5 MG TABLET PO (20:36)
[2021-08-11] MEDS: traZODone HCL 50 MG TABLET PO (20:37)
[2021-08-12] VITALS: BP 136/68; PULSE 56; RESP 17; TEMP 36.4; O2SAT 97
[2021-08-12 08:00] VITALS: BP 114/55; PULSE 50; RESP 18; TEMP 36.6; O2SAT 98
[2021-08-12] MEDS: Thiamine HCL 100 MG TABLET PO (09:30)
[2021-08-12] MEDS: Sennosides 8.6 MG TABLET PO (09:30)
[2021-08-12] MEDS: Heparin Sodium,Porcine 5,000 UNIT/ML VIAL 5000 UNIT SUBCUT ×2 (09:30→20:13)
[2021-08-12] MEDS: Folic Acid 1 MG TABLET PO (09:30)
--- NOTE | 2021-08-12 10:37 | P.PNIM_ITS ---
Subjective Subjective Date of Service: 08/12/21 Interval History: offers no acute complaints no overnight issues noted, no fevers no chills tolerating diet. Review of Systems Review of Systems: Yes Unobtainable due to mental status Physical Exam Vital Signs: Vital Signs: Last Vital Signs Temp 97.9 F 08/12/21 08:00 Pulse 50 08/12/21 08:00 Resp 18 08/12/21 08:00 BP 114/55 L 08/12/21 08:00 Pulse Ox 98 08/12/21 08:00 BMI result Body Mass Index 22.1 Constitutional : Alert, disoriented, not in distress Neck : Normal inspection, Supple Cardiovascular : RRR, S1 S2, no lower extremity edema Respiratory : Good bilateral air entry,? no crackles, wheezes or rhonchi Gastrointestinal:? soft, Normal bowel sounds, Non tender Skin : Warm, Dry Neurological : Alert & disoriented, No focal deficit Objective Data Active Medications Acetaminophen (Acetaminophen 325 Mg Tablet) 650 mg PO Q4H PRN PRN Reason: mild pain Last Admin: 07/15/21 09:07 Dose: 650 mg Documented by: WANDY Folic Acid (Folic Acid 1 Mg Tablet) 1 mg PO DAILY [facility] Last Admin: 08/12/21 09:30 Dose: 1 mg Documented by: ELODIA Heparin Sodium (Porcine) (Heparin Sodium,Porcine 5,000 Unit/Ml Vial) 5,000 unit SUBCUT Q12H [facility] Last Admin: 08/12/21 09:30 Dose: 5,000 unit Documented by: ELODIA Hydroxyzine HCl (Hydroxyzine Hcl 50 Mg/Ml Vial) 25 mg IM Q6H PRN PRN Reason: anxiety/restlessness Last Admin: 08/09/21 15:11 Dose: 25 mg Documented by: GOLDEN Olanzapine (Olanzapine 5 Mg Tablet) 5 mg PO BEDTIME [facility] Last Admin: 08/11/21 20:36 Dose: 5 mg Documented by: ELODIA Omeprazole (Omeprazole 20 Mg Capsule.) 20 mg PO DAILY@0630 [facility] Last Admin: 08/12/21 06:29 Dose: Not Given Documented by: ELODIA Non-Admin Reason: pt refused to wake up Pharmacy Consult (Consult Rx Perform Med Rec) 1 each MISCELLANE ONCE PRN PRN Reason: Consult order Senna (Sennosides 8.6 Mg Tablet) 8.6 mg PO DAILY [facility] Last Admin: 08/12/21 09:30 Dose: 8.6 mg Documented by: ELODIA Thiamine HCl (Thiamine Hcl 100 Mg Tablet) 100 mg PO DAILY [facility] Last Admin: 08/12/21 09:30 Dose: 100 mg Documented by: ELODIA Trazodone HCl (Trazodone Hcl 50 Mg Tablet) 50 mg PO BEDTIME [facility] Last Admin: 08/11/21 20:37 Dose: 50 mg Documented by: ELODIA Labs CBC & Chem 7: 06/12/21 05:12 06/12/21 05:12 Assessment and Plan (1) Adult failure to thrive: Status: Acute (2) Dementia with behavioral disturbance: Status: Acute Assessment and Plan: 75 yo M who presented to the ED on 05/23/21 for AMS and failure to thrive. He was initially going to be placed at a facility, but on 05/29 was noted to have cough and a CXR revealed a new R base infiltrate concerning for aspiration pneumonia has completed Abx course and now awaiting placement, received COVID vaccine Dementia with behavioral disturbances No behavioral issues noted Continue medications per psych, seen by psych- does not have capacity Aspiration Pneumonia completed treatment Continue nectar thick and Ground/mech Suspected scabies treated with Permethrin x 2 doses Stage 2 pressure ucler (L heel / M medial heel) and stage I bilateral buttock- present on admission Continue wound care Foam dressing to heal Continue Barrier cream, + air loss bed + high-protein diet (on supplements) Dispo: Placement pending Quality Stroke Does the patient have a stroke diagnosis?: No VTE Prior VTE?: No VTE Risk Level:: Medical - moderate - high VTE Device Contraindication: N/A - Device Ordered VTE Drug Contraindication: N/A - Med Ordered
[2021-08-12 15:52] VITALS: BP 125/59; PULSE 50; RESP 18; TEMP 36.6; O2SAT 96
[2021-08-12] MEDS: traZODone HCL 50 MG TABLET PO (20:13)
[2021-08-12] MEDS: OLANZapine 5 MG TABLET PO (20:13)
[2021-08-13] VITALS: BP 136/79; PULSE 80; RESP 20; TEMP 36.1; O2SAT 96
[2021-08-13] MEDS: Omeprazole 20 MG CAPSULE.DR PO (04:19)
[2021-08-13 07:38] VITALS: BP 119/57; PULSE 59; RESP 18; TEMP 36; O2SAT 98
[2021-08-13] MEDS: Folic Acid 1 MG TABLET PO (11:11)
[2021-08-13] MEDS: Thiamine HCL 100 MG TABLET PO (11:11)
[2021-08-13] MEDS: Heparin Sodium,Porcine 5,000 UNIT/ML VIAL 5000 UNIT SUBCUT ×2 (11:11→19:58)
--- NOTE | 2021-08-13 13:00 | HO.PM.IMPN ---
Subjective Subjective Date of Service: 08/13/21 Interval History: no new events no complaints but ROS unreliable Review of Systems Review of Systems: Yes Unobtainable due to mental status Physical Exam Vital Signs: Vital Signs: Last Vital Signs Temp 96.8 F 08/13/21 07:38 Pulse 59 08/13/21 07:38 Resp 18 08/13/21 07:38 BP 119/57 L 08/13/21 07:38 Pulse Ox 98 08/13/21 07:38 BMI result Body Mass Index 22.1 Constitutional : Alert, disoriented, not in distress Neck : Normal inspection, Supple Cardiovascular : RRR, S1 S2, no lower extremity edema Respiratory : Good bilateral air entry,? no crackles, wheezes or rhonchi Gastrointestinal:? soft, Normal bowel sounds, Non tender Skin : Warm, Dry Neurological : Alert & disoriented, No focal deficit Objective Data Active Medications Acetaminophen (Acetaminophen 325 Mg Tablet) 650 mg PO Q4H PRN PRN Reason: mild pain Last Admin: 07/15/21 09:07 Dose: 650 mg Documented by: WANDY Folic Acid (Folic Acid 1 Mg Tablet) 1 mg PO DAILY [facility] Last Admin: 08/13/21 11:11 Dose: 1 mg Documented by: AURORA Heparin Sodium (Porcine) (Heparin Sodium,Porcine 5,000 Unit/Ml Vial) 5,000 unit SUBCUT Q12H [facility] Last Admin: 08/13/21 11:11 Dose: 5,000 unit Documented by: AURORA Hydroxyzine HCl (Hydroxyzine Hcl 50 Mg/Ml Vial) 25 mg IM Q6H PRN PRN Reason: anxiety/restlessness Last Admin: 08/09/21 15:11 Dose: 25 mg Documented by: GOLDEN Olanzapine (Olanzapine 5 Mg Tablet) 5 mg PO BEDTIME [facility] Last Admin: 08/12/21 20:13 Dose: 5 mg Documented by: ELODIA Omeprazole (Omeprazole 20 Mg Capsule.) 20 mg PO DAILY@0630 [facility] Last Admin: 08/13/21 04:19 Dose: 20 mg Documented by: ELODIA Pharmacy Consult (Consult Rx Perform Med Rec) 1 each MISCELLANE ONCE PRN PRN Reason: Consult order Senna (Sennosides 8.6 Mg Tablet) 8.6 mg PO DAILY [facility] Last Admin: 08/13/21 11:12 Dose: Not Given Documented by: AURORA Non-Admin Reason: bm today Thiamine HCl (Thiamine Hcl 100 Mg Tablet) 100 mg PO DAILY [facility] Last Admin: 08/13/21 11:11 Dose: 100 mg Documented by: AURORA Trazodone HCl (Trazodone Hcl 50 Mg Tablet) 50 mg PO BEDTIME [facility] Last Admin: 08/12/21 20:13 Dose: 50 mg Documented by: ELODIA Labs CBC & Chem 7: 06/12/21 05:12 06/12/21 05:12 Assessment and Plan (1) Adult failure to thrive: Status: Acute (2) Dementia with behavioral disturbance: Status: Acute Assessment and Plan: hospital d#77 75 yo M who presented to the ED on 05/23/21 for AMS and failure to thrive. He was initially going to be placed at a facility, but on 05/29 was noted to have cough and a CXR revealed a new R base infiltrate concerning for aspiration pneumonia has completed Abx course and now awaiting placement, received COVID vaccine # Dementia with behavioral disturbances - no behavioral issues noted - continue medications per psych, seen by psych- does not have capacity # Aspiration pneumonia - completed treatment - continue nectar thick and ground/mech diet # Suspected scabies - treated with permethrin x 2 doses # Stage 2 pressure ucler (L heel / M medial heel) and stage I bilateral buttock- present on admission - continue wound care - foam dressing to heel - continue Barrier cream, + air loss bed + high-protein diet (on supplements) # dispo - awaiting placement Quality Stroke Does the patient have a stroke diagnosis?: No VTE Prior VTE?: No VTE Risk Level:: Medical - moderate - high VTE Device Contraindication: N/A - Device Ordered VTE Drug Contraindication: N/A - Med Ordered
--- NOTE | 2021-08-13 14:01 | MHC.CM.PN ---
[facility] is following, pending resolution of Financial issues.CM will follow.
[2021-08-13 16:00] VITALS: BP 134/76; PULSE 48; RESP 18; TEMP 36.8; O2SAT 97
[2021-08-13] MEDS: traZODone HCL 50 MG TABLET PO (19:58)
[2021-08-13] MEDS: OLANZapine 5 MG TABLET PO (19:58)
[2021-08-14] VITALS: BP 121/60; PULSE 60; RESP 18; TEMP 36.3; O2SAT 97
[2021-08-14] MEDS: Omeprazole 20 MG CAPSULE.DR PO (06:40)
[2021-08-14 07:43] VITALS: BP 124/60; PULSE 50; RESP 18; TEMP 36.1; O2SAT 96
[2021-08-14] MEDS: Heparin Sodium,Porcine 5,000 UNIT/ML VIAL 5000 UNIT SUBCUT ×2 (10:30→20:50)
[2021-08-14] MEDS: Sennosides 8.6 MG TABLET PO (10:31)
[2021-08-14] MEDS: Folic Acid 1 MG TABLET PO (10:31)
[2021-08-14] MEDS: Thiamine HCL 100 MG TABLET PO (10:31)
--- NOTE | 2021-08-14 12:05 | HO.PM.IMPN ---
Subjective Subjective Date of Service: 08/14/21 Interval History: No new events Review of Systems Review of Systems: Yes Unobtainable due to mental status Physical Exam Vital Signs: Vital Signs: Last Vital Signs Temp 97.0 F 08/14/21 07:43 Pulse 50 08/14/21 07:43 Resp 18 08/14/21 07:43 BP 124/60 08/14/21 07:43 Pulse Ox 96 08/14/21 07:43 BMI result Body Mass Index 22.1 gen: NAD resp: normal resp effort neuro: disoriented, alert psych: impaired insight Objective Data Active Medications Acetaminophen (Acetaminophen 325 Mg Tablet) 650 mg PO Q4H PRN PRN Reason: mild pain Last Admin: 07/15/21 09:07 Dose: 650 mg Documented by: WANDY Folic Acid (Folic Acid 1 Mg Tablet) 1 mg PO DAILY [facility] Last Admin: 08/14/21 10:31 Dose: 1 mg Documented by: SCOTT Heparin Sodium (Porcine) (Heparin Sodium,Porcine 5,000 Unit/Ml Vial) 5,000 unit SUBCUT Q12H [facility] Last Admin: 08/14/21 10:30 Dose: 5,000 unit Documented by: SCOTT Hydroxyzine HCl (Hydroxyzine Hcl 50 Mg/Ml Vial) 25 mg IM Q6H PRN PRN Reason: anxiety/restlessness Last Admin: 08/09/21 15:11 Dose: 25 mg Documented by: GOLDEN Olanzapine (Olanzapine 5 Mg Tablet) 5 mg PO BEDTIME [facility] Last Admin: 08/13/21 19:58 Dose: 5 mg Documented by: LYNN Omeprazole (Omeprazole 20 Mg Capsule.) 20 mg PO DAILY@0630 [facility] Last Admin: 08/14/21 06:40 Dose: 20 mg Documented by: MARY Pharmacy Consult (Consult Rx Perform Med Rec) 1 each MISCELLANE ONCE PRN PRN Reason: Consult order Senna (Sennosides 8.6 Mg Tablet) 8.6 mg PO DAILY [facility] Last Admin: 08/14/21 10:31 Dose: 8.6 mg Documented by: SCOTT Thiamine HCl (Thiamine Hcl 100 Mg Tablet) 100 mg PO DAILY [facility] Last Admin: 08/14/21 10:31 Dose: 100 mg Documented by: SCOTT Trazodone HCl (Trazodone Hcl 50 Mg Tablet) 50 mg PO BEDTIME [facility] Last Admin: 08/13/21 19:58 Dose: 50 mg Documented by: LYNN Labs CBC & Chem 7: 06/12/21 05:12 06/12/21 05:12 Assessment and Plan (1) Adult failure to thrive: Status: Acute (2) Dementia with behavioral disturbance: Status: Acute Assessment and Plan: hospital d#78 75 yo M who presented to the ED on 05/23/21 for AMS and failure to thrive. He was initially going to be placed at a facility, but on 05/29 was noted to have cough and a CXR revealed a new R base infiltrate concerning for aspiration pneumonia has completed Abx course and now awaiting placement, received COVID vaccine # dementia with behavioral disturbances - no behavioral issues noted - continue medications per psych, seen by psych- does not have capacity # aspiration pneumonia - completed treatment - continue nectar thick and ground/mech [NDD2] diet # suspected scabies - treated with permethrin x 2 doses # stage 2 pressure ucler (L heel / M medial heel) and stage I bilateral buttock- present on admission - continue wound care - foam dressing to heel - continue barrier cream, + air loss bed + high-protein diet (on supplements) # dispo - awaiting placement Quality Stroke Does the patient have a stroke diagnosis?: No VTE Prior VTE?: No VTE Risk Level:: Medical - moderate - high VTE Device Contraindication: N/A - Device Ordered VTE Drug Contraindication: N/A - Med Ordered
[2021-08-14 15:54] VITALS: BP 129/60; PULSE 48; RESP 18; TEMP 36.6; O2SAT 100
[2021-08-14] MEDS: OLANZapine 5 MG TABLET PO (20:50)
[2021-08-14] MEDS: traZODone HCL 50 MG TABLET PO (20:50)
[2021-08-14 23:45] VITALS: BP 139/76; PULSE 67; RESP 16; TEMP 36.7; O2SAT 95
[2021-08-15] MEDS: Omeprazole 20 MG CAPSULE.DR PO (05:44)
[2021-08-15 07:22] VITALS: BP 125/67; PULSE 67; RESP 18; TEMP 36.6; O2SAT 95
--- NOTE | 2021-08-15 10:45 | P.PNIM_ITS ---
Subjective Subjective Date of Service: 08/15/21 Interval History: no new events Review of Systems Review of Systems: Yes Unobtainable due to mental status Physical Exam Vital Signs: Vital Signs: Last Vital Signs Temp 97.9 F 08/15/21 07:22 Pulse 67 08/15/21 07:22 Resp 18 08/15/21 07:22 BP 125/67 08/15/21 07:22 Pulse Ox 95 08/15/21 07:22 BMI result Body Mass Index 22.1 gen: NAD resp: normal respiratory effort neuro: disoriented, alert psych: impaired insight Objective Data Active Medications Acetaminophen (Acetaminophen 325 Mg Tablet) 650 mg PO Q4H PRN PRN Reason: mild pain Last Admin: 07/15/21 09:07 Dose: 650 mg Documented by: WANDY Folic Acid (Folic Acid 1 Mg Tablet) 1 mg PO DAILY [facility] Last Admin: 08/14/21 10:31 Dose: 1 mg Documented by: SCOTT Heparin Sodium (Porcine) (Heparin Sodium,Porcine 5,000 Unit/Ml Vial) 5,000 unit SUBCUT Q12H [facility] Last Admin: 08/14/21 20:50 Dose: 5,000 unit Documented by: GIL Hydroxyzine HCl (Hydroxyzine Hcl 50 Mg/Ml Vial) 25 mg IM Q6H PRN PRN Reason: anxiety/restlessness Last Admin: 08/09/21 15:11 Dose: 25 mg Documented by: GOLDEN Olanzapine (Olanzapine 5 Mg Tablet) 5 mg PO BEDTIME [facility] Last Admin: 08/14/21 20:50 Dose: 5 mg Documented by: GIL Omeprazole (Omeprazole 20 Mg Capsule.) 20 mg PO DAILY@0630 [facility] Last Admin: 08/15/21 05:44 Dose: 20 mg Documented by: GIL Pharmacy Consult (Consult Rx Perform Med Rec) 1 each MISCELLANE ONCE PRN PRN Reason: Consult order Senna (Sennosides 8.6 Mg Tablet) 8.6 mg PO DAILY [facility] Last Admin: 08/14/21 10:31 Dose: 8.6 mg Documented by: SCOTT Thiamine HCl (Thiamine Hcl 100 Mg Tablet) 100 mg PO DAILY [facility] Last Admin: 08/14/21 10:31 Dose: 100 mg Documented by: SCOTT Trazodone HCl (Trazodone Hcl 50 Mg Tablet) 50 mg PO BEDTIME [facility] Last Admin: 08/14/21 20:50 Dose: 50 mg Documented by: GIL Labs CBC & Chem 7: 06/12/21 05:12 06/12/21 05:12 Assessment and Plan (1) Aspiration pneumonia: Status: Acute (2) Dementia: Status: Acute (3) Adult failure to thrive: Status: Acute Assessment and Plan: hospital d#79 75 yo M who presented to the ED on 05/23/21 for AMS and failure to thrive. He was initially going to be placed at a facility, but on 05/29 was noted to have cough and a CXR revealed a new R base infiltrate concerning for aspiration pneumonia has completed Abx course and now awaiting placement, received COVID vaccine # dementia with behavioral disturbances - no behavioral issues noted - continue medications per psych, seen by psych- does not have capacity # aspiration pneumonia - completed treatment - continue nectar thick and ground/mech [NDD2] diet # suspected scabies - treated with permethrin x 2 doses # stage 2 pressure ucler (L heel / M medial heel) and stage I bilateral buttock- present on admission - continue wound care - foam dressing to heel - continue barrier cream, + air loss bed + high-protein diet (on supplements) # dispo - awaiting placement Quality Stroke Does the patient have a stroke diagnosis?: No VTE Prior VTE?: No VTE Risk Level:: Medical - moderate - high VTE Device Contraindication: N/A - Device Ordered VTE Drug Contraindication: N/A - Med Ordered
[2021-08-15] MEDS: Heparin Sodium,Porcine 5,000 UNIT/ML VIAL 5000 UNIT SUBCUT ×2 (11:50→20:16)
[2021-08-15] MEDS: Folic Acid 1 MG TABLET PO (11:50)
[2021-08-15] MEDS: Sennosides 8.6 MG TABLET PO (11:50)
[2021-08-15] MEDS: Thiamine HCL 100 MG TABLET PO (11:50)
--- NOTE | 2021-08-15 13:40 | MHC.CM.PN ---
EMR REVIEWED, PT REMAINS MEDICALLY CLEARED, PT RECEIVED 2ND mycirQle VACCINE ON 08/06/21, GUARDIAN/CONSERVATOR CONT'S TO WORK ON [facility] FOR LTC, PER FS [facility] DOES IS NOT FOR LTC, [facility] FOLLOWING, CM WILL CONT TO FOLLOW D/C NEEDS.
[2021-08-15 15:30] VITALS: BP 137/71; PULSE 64; RESP 18; TEMP 36.6; O2SAT 98
[2021-08-15 19:45] VITALS: BP 122/59; PULSE 62; RESP 18; TEMP 37.1; O2SAT 96
[2021-08-15] MEDS: OLANZapine 5 MG TABLET PO (20:16)
[2021-08-15] MEDS: traZODone HCL 50 MG TABLET PO (20:16)
[2021-08-16] MEDS: Omeprazole 20 MG CAPSULE.DR PO (06:21)
[2021-08-16 07:36] VITALS: BP 111/54; PULSE 71; RESP 18; TEMP 36.9; O2SAT 90
[2021-08-16] MEDS: Thiamine HCL 100 MG TABLET PO (11:53)
[2021-08-16] MEDS: Heparin Sodium,Porcine 5,000 UNIT/ML VIAL 5000 UNIT SUBCUT ×2 (11:53→20:13)
[2021-08-16] MEDS: Sennosides 8.6 MG TABLET PO (11:53)
[2021-08-16] MEDS: Folic Acid 1 MG TABLET PO (11:54)
--- NOTE | 2021-08-16 13:20 | P.PNIM_ITS ---
Subjective Subjective Date of Service: 08/16/21 Interval History: No acute issues overnight Review of Systems Review of Systems: Yes Unobtainable due to mental status Physical Exam Vital Signs: Vital Signs: Last Vital Signs Temp 98.5 F 08/16/21 07:36 Pulse 71 08/16/21 07:36 Resp 18 08/16/21 07:36 BP 111/54 L 08/16/21 07:36 Pulse Ox 90 L 08/16/21 07:36 BMI result Body Mass Index 22.1 Constitutional : Alert, disoriented, not in distress Neck : Normal inspection, Supple Cardiovascular : RRR, S1 S2, no lower extremity edema Respiratory : Good bilateral air entry,? no crackles, wheezes or rhonchi Gastrointestinal:? soft, Normal bowel sounds, Non tender Skin : Warm, Dry Neurological : Alert & disoriented, No focal deficit Objective Data Active Medications Acetaminophen (Acetaminophen 325 Mg Tablet) 650 mg PO Q4H PRN PRN Reason: mild pain Last Admin: 07/15/21 09:07 Dose: 650 mg Documented by: JULIANEMA Folic Acid (Folic Acid 1 Mg Tablet) 1 mg PO DAILY [facility] Last Admin: 08/16/21 11:54 Dose: 1 mg Documented by: DANITA Heparin Sodium (Porcine) (Heparin Sodium,Porcine 5,000 Unit/Ml Vial) 5,000 unit SUBCUT Q12H [facility] Last Admin: 08/16/21 11:53 Dose: 5,000 unit Documented by: DANITA Hydroxyzine HCl (Hydroxyzine Hcl 50 Mg/Ml Vial) 25 mg IM Q6H PRN PRN Reason: anxiety/restlessness Last Admin: 08/09/21 15:11 Dose: 25 mg Documented by: GOLDEN Olanzapine (Olanzapine 5 Mg Tablet) 5 mg PO BEDTIME [facility] Last Admin: 08/15/21 20:16 Dose: 5 mg Documented by: CLARENCE Omeprazole (Omeprazole 20 Mg Capsule.) 20 mg PO DAILY@0630 [facility] Last Admin: 08/16/21 06:21 Dose: 20 mg Documented by: CLARENCE Pharmacy Consult (Consult Rx Perform Med Rec) 1 each MISCELLANE ONCE PRN PRN Reason: Consult order Senna (Sennosides 8.6 Mg Tablet) 8.6 mg PO DAILY [facility] Last Admin: 08/16/21 11:53 Dose: 8.6 mg Documented by: DANITA Thiamine HCl (Thiamine Hcl 100 Mg Tablet) 100 mg PO DAILY [facility] Last Admin: 08/16/21 11:53 Dose: 100 mg Documented by: DANITA Trazodone HCl (Trazodone Hcl 50 Mg Tablet) 50 mg PO BEDTIME [facility] Last Admin: 08/15/21 20:16 Dose: 50 mg Documented by: CLARENCE Labs CBC & Chem 7: 06/12/21 05:12 06/12/21 05:12 Assessment and Plan (1) Adult failure to thrive: Status: Acute (2) Dementia with behavioral disturbance: Status: Acute Assessment and Plan: 75 yo M who presented to the ED on 05/23/21 for AMS and failure to thrive. He was initially going to be placed at a facility, but on 05/29 was noted to have cough and a CXR revealed a new R base infiltrate concerning for aspiration pneumonia has completed Abx course and now awaiting placement, received COVID vaccine # dementia with behavioral disturbances - no behavioral issues noted - continue medications per psych, seen by psych- does not have capacity # aspiration pneumonia - completed treatment - continue nectar thick and ground/mech [NDD2] diet # suspected scabies - treated with permethrin x 2 doses, no new rash noted # stage 2 pressure ucler (L heel / M medial heel) and stage I bilateral buttock- present on admission - continue wound care - foam dressing to heel - continue barrier cream, + air loss bed + high-protein diet (on supplements) # dispo - awaiting placement Quality Stroke Does the patient have a stroke diagnosis?: No VTE Prior VTE?: No VTE Risk Level:: Medical - moderate - high VTE Device Contraindication: N/A - Device Ordered VTE Drug Contraindication: N/A - Med Ordered
[2021-08-16 16:00] VITALS: BP 119/56; PULSE 75; RESP 16; TEMP 36.8; O2SAT 94
[2021-08-16] MEDS: traZODone HCL 50 MG TABLET PO (20:13)
[2021-08-16] MEDS: OLANZapine 5 MG TABLET PO (20:13)
[2021-08-17] VITALS: BP 123/76; PULSE 88; RESP 18; TEMP 36.1; O2SAT 96
[2021-08-17] MEDS: Omeprazole 20 MG CAPSULE.DR PO (06:30)
--- NOTE | 2021-08-17 07:31 | PC.NURSE ---
This RN got report that pt. was still very sleepy and I heard some upper respiratory production. Dr. Singh aware and ordered Covid Swab, pt was non-compliant with swab but test was sent, will continue to monitor.
[2021-08-17 07:41] LABS: IDNOW Serial# 9DD0AD1C
[2021-08-17 07:42] LABS: COVID-19 Test Positive (Negative)
[2021-08-17 08:00] VITALS: BP 107/47; PULSE 58; RESP 18; TEMP 36.6; O2SAT 93
[2021-08-17] MEDS: Sennosides 8.6 MG TABLET PO (09:24)
[2021-08-17] MEDS: Thiamine HCL 100 MG TABLET PO (09:24)
[2021-08-17] MEDS: Folic Acid 1 MG TABLET PO (09:24)
[2021-08-17] MEDS: Heparin Sodium,Porcine 5,000 UNIT/ML VIAL 5000 UNIT SUBCUT ×2 (09:24→19:59)
--- NOTE | 2021-08-17 14:44 | HO.PM.IMPN ---
Subjective Subjective Date of Service: 08/17/21 Interval History: RN notified the patient noted to be very sleepy with some coughing episodes no fevers were noted, patient unable to provide any detail history. Review of Systems Review of Systems: Yes Unobtainable due to mental status Physical Exam Vital Signs: Vital Signs: Last Vital Signs Temp 97.9 F 08/17/21 08:00 Pulse 58 08/17/21 08:00 Resp 18 08/17/21 08:00 BP 107/47 L 08/17/21 08:00 Pulse Ox 93 08/17/21 08:00 BMI result Body Mass Index 22.1 Constitutional : Alert, disoriented, not in distress Neck : Normal inspection, Supple Cardiovascular : RRR, S1 S2, no lower extremity edema Respiratory : Diminished,?no crackles, wheezes or rhonchi Gastrointestinal:? soft, Normal bowel sounds, Non tender Skin : Warm, Dry Neurological : Alert & disoriented, No focal deficit Objective Data Active Medications Acetaminophen (Acetaminophen 325 Mg Tablet) 650 mg PO Q4H PRN PRN Reason: mild pain Last Admin: 07/15/21 09:07 Dose: 650 mg Documented by: WANDY Folic Acid (Folic Acid 1 Mg Tablet) 1 mg PO DAILY [facility] Last Admin: 08/17/21 09:24 Dose: 1 mg Documented by: DANITA Heparin Sodium (Porcine) (Heparin Sodium,Porcine 5,000 Unit/Ml Vial) 5,000 unit SUBCUT Q12H [facility] Last Admin: 08/17/21 09:24 Dose: 5,000 unit Documented by: DANITA Hydroxyzine HCl (Hydroxyzine Hcl 50 Mg/Ml Vial) 25 mg IM Q6H PRN PRN Reason: anxiety/restlessness Last Admin: 08/09/21 15:11 Dose: 25 mg Documented by: GOLDEN Olanzapine (Olanzapine 5 Mg Tablet) 5 mg PO BEDTIME [facility] Last Admin: 08/16/21 20:13 Dose: 5 mg Documented by: CLARENCE Omeprazole (Omeprazole 20 Mg Capsule.) 20 mg PO DAILY@0630 [facility] Last Admin: 08/17/21 06:30 Dose: 20 mg Documented by: CLARENCE Pharmacy Consult (Consult Rx Perform Med Rec) 1 each MISCELLANE ONCE PRN PRN Reason: Consult order Senna (Sennosides 8.6 Mg Tablet) 8.6 mg PO DAILY [facility] Last Admin: 08/17/21 09:24 Dose: 8.6 mg Documented by: DANITA Thiamine HCl (Thiamine Hcl 100 Mg Tablet) 100 mg PO DAILY [facility] Last Admin: 08/17/21 09:24 Dose: 100 mg Documented by: DANITA Trazodone HCl (Trazodone Hcl 50 Mg Tablet) 50 mg PO BEDTIME [facility] Last Admin: 08/16/21 20:13 Dose: 50 mg Documented by: CLARENCE Labs CBC & Chem 7: 06/12/21 05:12 06/12/21 05:12 Labs: Laboratory Results - last 24 hr 08/17/21 08/17/21 07:23 08:17 C-Reactive Protein 3.20 H COVID-19 (JENNIFER) Positive A COVID-19 Clin Com See Note Assessment and Plan (1) COVID-19 virus infection: Status: Acute (2) Dementia with behavioral disturbance: Status: Acute (3) Adult failure to thrive: Status: Acute Assessment and Plan: 75 yo M who presented to the ED on 05/23/21 for AMS and failure to thrive. He was initially going to be placed at a facility, but on 05/29 was noted to have cough and a CXR revealed a new R base infiltrate concerning for aspiration pneumonia has completed Abx course and now awaiting placement, received COVID vaccine # COVID-19 infection No hypoxia 1 low reading of 90% otherwise finger oximetry 91% on room air Will add cough medication/ vitamin-C Risk benefit profile will be against using remdesivir at this time will follow clinical course. # dementia with behavioral disturbances - no behavioral issues noted - continue medications per psych, seen by psych- does not have capacity # aspiration pneumonia - completed treatment - continue nectar thick and ground/mech [NDD2] diet # suspected scabies - treated with permethrin x 2 doses, no new rash noted # stage 2 pressure ucler (L heel / M medial heel) and stage I bilateral buttock- present on admission - continue wound care - foam dressing to heel - continue barrier cream, + air loss bed + high-protein diet (on supplements) # dispo - awaiting placement Quality Stroke Does the patient have a stroke diagnosis?: No VTE Prior VTE?: No VTE Risk Level:: Medical - moderate - high VTE Device Contraindication: N/A - Device Ordered VTE Drug Contraindication: N/A - Med Ordered
[2021-08-17 18:19] VITALS: BP 116/52; PULSE 68; RESP 16; TEMP 36.2; O2SAT 94
[2021-08-17] MEDS: traZODone HCL 50 MG TABLET PO (19:59)
[2021-08-17] MEDS: OLANZapine 5 MG TABLET PO (19:59)
[2021-08-17] MEDS: hydrOXYzine HCL 50 MG/ML VIAL 25 MG IM (23:45)
[2021-08-17 23:48] VITALS: BP 120/63; PULSE 68; RESP 18; TEMP 36.4; O2SAT 95
[2021-08-18] MEDS: Omeprazole 20 MG CAPSULE.DR PO (04:39)
[2021-08-18 06:45] LABS: MANUAL DIFF FLAG NO
[2021-08-18 06:49] LABS: Basophils Percent Auto 0.2 % (0-2); Eosinophils Absolute Auto 0.1 X10*3/uL (0.0-0.4); Eosinophils Percent Auto 2.3 % (0-4); Hematocrit 37.9 % (42.0-52.0); Hemoglobin 12.1 g/dl (14.0-18.0); Imm Gran Abs Auto 0.03 X10*3/uL (0.00-0.03); Imm Gran Pct Auto 0.6 % (0.0-0.4); Lymphocytes Absolute Auto 1.3 X10*3/uL (1.2-4.9); Lymphocytes Percent Auto 27.3 % (20-40); Mean Corpuscular HGB Conc 31.9 g/dl (31.0-36.0); Mean Corpuscular Hemoglobin 30.5 pg (27.0-33.0); Mean Corpuscular Volume 95.5 fL (80.0-98.0); Mean Platelet Volume 11.7 fL (9.4-12.4); Monocytes Absolute Auto 0.5 X10*3/uL (0.1-1.2); Monocytes Percent Auto 10.8 % (2-11); Neutrophils Absolute Auto 2.8 x10*3/uL (2.0-8.3); Neutrophils Percent Auto 58.8 % (45-73); Platelet Count 179 X10*3/uL (160-400); Red Blood Count 3.97 X10*6/uL (4.60-5.80); Red Cell Distribution Width 14.3 % (11.0-16.0); White Blood Count 4.7 X10*3/uL (4.8-10.8)
[2021-08-18 07:04] LABS: Anion Gap 12 (12-20); Blood Urea Nitrogen 25 mg/dL (9-16); C Reactive Protein 5.26 mg/dL (< or = 0.50); Calcium 9.1 mg/dL (8.4-10.2); Carbon Dioxide 30 mmol/L (22-29); Chloride 106 mmol/L (96-108); Creatinine Clr Calc Pharmacy 56.5; Estimated Glomerular Filt Rate > 60; Glucose Random 90 mg/dL (60-115); Potassium 4.6 mmol/L (3.3-5.1); Sodium 143 mmol/L (135-145)
[2021-08-18 07:22] LABS: Procalcitonin 0.05 ng/mL
[2021-08-18 07:26] VITALS: BP 131/72; PULSE 75; RESP 18; TEMP 36.6; O2SAT 97
[2021-08-18] MEDS: Sennosides 8.6 MG TABLET PO (09:36)
[2021-08-18] MEDS: Ascorbic Acid 500 MG TABLET PO (09:36)
[2021-08-18] MEDS: Folic Acid 1 MG TABLET PO (09:36)
[2021-08-18] MEDS: Thiamine HCL 100 MG TABLET PO (09:36)
[2021-08-18] MEDS: Heparin Sodium,Porcine 5,000 UNIT/ML VIAL 5000 UNIT SUBCUT ×2 (09:36→19:28)
[2021-08-18 10:32] LABS: MRSA Nasal PCR NEGATIVE (Negative); SA Nasal PCR NEGATIVE (Negative)
--- NOTE | 2021-08-18 14:00 | P.PNIM_ITS ---
Subjective Subjective Date of Service: 08/18/21 Interval History: Unable to obtain ROS due to dementia but appears in NAD Review of Systems Review of Systems: Yes Unobtainable due to mental status Physical Exam Vital Signs: Vital Signs: Last Vital Signs Temp 98 F 08/18/21 07:26 Pulse 75 08/18/21 07:26 Resp 18 08/18/21 07:26 BP 131/72 08/18/21 07:26 Pulse Ox 97 08/18/21 07:26 BMI result Body Mass Index 22.1 Gen: in no acute distress HEENT: sclera anicteric, moist mucus membranes Neck: supple Lungs: clear to auscultation bilaterally Heart: regular rate and rhythm, no murmurs Abd: soft, non-tender, non-distended Ext: no edema Skin: warm/well-perfused Neuro: disoriented Psych: impaired insight Objective Data Active Medications Acetaminophen (Acetaminophen 325 Mg Tablet) 650 mg PO Q4H PRN PRN Reason: mild pain Last Admin: 07/15/21 09:07 Dose: 650 mg Documented by: WANDY Ascorbic Acid (Ascorbic Acid 500 Mg Tablet) 500 mg PO DAILY [facility] Last Admin: 08/18/21 09:36 Dose: 500 mg Documented by: MICHEAL Folic Acid (Folic Acid 1 Mg Tablet) 1 mg PO DAILY [facility] Last Admin: 08/18/21 09:36 Dose: 1 mg Documented by: MICHEAL Guaifenesin/Dextromethorphan (Guaifenesin Dm 100/10/5 Ml 5 Ml Syrup) 10 ml PO Q6H PRN PRN Reason: cough Heparin Sodium (Porcine) (Heparin Sodium,Porcine 5,000 Unit/Ml Vial) 5,000 unit SUBCUT Q12H [facility] Last Admin: 08/18/21 09:36 Dose: 5,000 unit Documented by: MICHEAL Hydroxyzine HCl (Hydroxyzine Hcl 50 Mg/Ml Vial) 25 mg IM Q6H PRN PRN Reason: anxiety/restlessness Last Admin: 08/17/21 23:45 Dose: 25 mg Documented by: KARMA Olanzapine (Olanzapine 5 Mg Tablet) 5 mg PO BEDTIME [facility] Last Admin: 08/17/21 19:59 Dose: 5 mg Documented by: KARMA Omeprazole (Omeprazole 20 Mg Capsule.Dr) 20 mg PO DAILY@0630 [facility] Last Admin: 08/18/21 04:39 Dose: 20 mg Documented by: KARMA Pharmacy Consult (Consult Rx Perform Med Rec) 1 each MISCELLANE ONCE PRN PRN Reason: Consult order Senna (Sennosides 8.6 Mg Tablet) 8.6 mg PO DAILY [facility] Last Admin: 08/18/21 09:36 Dose: 8.6 mg Documented by: MICHEAL Thiamine HCl (Thiamine Hcl 100 Mg Tablet) 100 mg PO DAILY [facility] Last Admin: 08/18/21 09:36 Dose: 100 mg Documented by: MICHEAL Trazodone HCl (Trazodone Hcl 50 Mg Tablet) 50 mg PO BEDTIME [facility] Last Admin: 08/17/21 19:59 Dose: 50 mg Documented by: KARMA Labs CBC & Chem 7: 08/18/21 06:20 08/18/21 06:20 Labs: Laboratory Results - last 24 hr 08/17/21 08/18/21 08/18/21 16:05 06:20 06:20 MCV 95.5 MCH 30.5 MCHC 31.9 RDW 14.3 Plt Count 179 MPV 11.7 Immature Gran % (Auto) 0.6 H Neut % (Auto) 58.8 Lymph % (Auto) 27.3 Banks % (Auto) 10.8 Eos % (Auto) 2.3 Baso % (Auto) 0.2 Lymph # (Auto) 1.3 Banks # (Auto) 0.5 Eos # (Auto) 0.1 Baso # (Auto) 0.0 Abs Immat Gran (auto) 0.03 Absolute Neuts (auto) 2.8 Absolute Nucleated RBC 0.000 Nucleated RBC % (auto) 0.0 Anion Gap 12 Estim Creat Clear Calc 56.5 Estimated GFR > 60 Random Glucose 90 Calcium 9.1 D C-Reactive Protein 5.26 H Procalcitonin Nasal Screen MRSA (PCR) NEGATIVE Nasal S. aureus Screen NEGATIVE Nasal MRSA/S.aureus Interp SEE NOTE 08/18/21 06:20 MCV MCH MCHC RDW Plt Count MPV Immature Gran % (Auto) Neut % (Auto) Lymph % (Auto) Banks % (Auto) Eos % (Auto) Baso % (Auto) Lymph # (Auto) Banks # (Auto) Eos # (Auto) Baso # (Auto) Abs Immat Gran (auto) Absolute Neuts (auto) Absolute Nucleated RBC Nucleated RBC % (auto) Anion Gap Estim Creat Clear Calc Estimated GFR Random Glucose Calcium C-Reactive Protein Procalcitonin 0.05 Nasal Screen MRSA (PCR) Nasal S. aureus Screen Nasal MRSA/S.aureus Interp Assessment and Plan (1) COVID-19 virus infection: Status: Acute (2) Dementia with behavioral disturbance: Status: Acute (3) Adult failure to thrive: Status: Acute Assessment and Plan: hospital d#82 75 yo M who presented to the ED on 05/23/21 for AMS and failure to thrive. He was initially going to be placed at a facility, but on 05/29 was noted to have cough and a CXR revealed a new R base infiltrate concerning for aspiration pneumonia; has completed Abx course and now awaiting placement, received COVID vaccine developed symptomatic Covid-19 infection 08/17/21 without hypoxia # Covid-19 infection - not hypoxic - monitor inflammatory markers, supportive care # dementia with behavioral disturbances - no behavioral issues noted - continue medications per psych, seen by psych- does not have capacity # aspiration pneumonia - completed treatment - continue nectar thick and ground/mech [NDD2] diet # suspected scabies - treated with permethrin x 2 doses, no new rash noted # stage 2 pressure ucler (L heel / M medial heel) and stage I bilateral buttock- present on admission - continue wound care - foam dressing to heel - continue barrier cream, + air loss bed + high-protein diet (on supplements) # dispo - awaiting TLC placement Quality Stroke Does the patient have a stroke diagnosis?: No VTE Prior VTE?: No VTE Risk Level:: Medical - moderate - high VTE Device Contraindication: N/A - Device Ordered VTE Drug Contraindication: N/A - Med Ordered
[2021-08-18 14:21] LABS: Alanine Aminotransferase 22 U/L (0-40); Albumin Level 3.5 g/dL (3.5-5.0); Alkaline Phosphatase 89 U/L (39-117); Aspartate Amino Transferase 25 U/L (5-37); Bilirubin Direct < 0.2 mg/dL (0.0-0.5); Bilirubin Total < 0.2 mg/dL (0.0-1.0); Total Protein 6.5 g/dL (6.5-8.0)
[2021-08-18 15:34] VITALS: BP 145/70; PULSE 59; RESP 18; TEMP 36.4; O2SAT 99
[2021-08-18] MEDS: hydrOXYzine HCL 50 MG/ML VIAL 25 MG IM (16:00)
[2021-08-18] MEDS: traZODone HCL 50 MG TABLET PO (19:28)
[2021-08-18] MEDS: OLANZapine 5 MG TABLET PO (19:28)
[2021-08-18 23:05] VITALS: BP 133/56; PULSE 50; RESP 18; TEMP 36.8; O2SAT 96
[2021-08-19 03:01] VITALS: BP 118/51; PULSE 72; RESP 18; TEMP 36.3; O2SAT 97
[2021-08-19] MEDS: Omeprazole 20 MG CAPSULE.DR PO (05:24)
[2021-08-19 07:05] LABS: D Dimer High Sensitivity 607 NG/ML
[2021-08-19 07:21] LABS: Alanine Aminotransferase 22 U/L (0-40); Albumin Level 3.5 g/dL (3.5-5.0); Alkaline Phosphatase 82 U/L (39-117); Anion Gap 11 (12-20); Aspartate Amino Transferase 25 U/L (5-37); Bilirubin Total 0.3 mg/dL (0.0-1.0); Blood Urea Nitrogen 30 mg/dL (9-16); Calcium 8.9 mg/dL (8.4-10.2); Carbon Dioxide 30 mmol/L (22-29); Chloride 105 mmol/L (96-108); Creatinine Clr Calc Pharmacy 52.9; Estimated Glomerular Filt Rate > 60; Glucose Random 104 mg/dL (60-115); Potassium 4.4 mmol/L (3.3-5.1); Sodium 142 mmol/L (135-145); Total Protein 6.4 g/dL (6.5-8.0)
[2021-08-19 08:00] VITALS: BP 125/71; PULSE 61; RESP 18; TEMP 36.3; O2SAT 98
[2021-08-19] MEDS: Sennosides 8.6 MG TABLET PO (09:58)
[2021-08-19] MEDS: Thiamine HCL 100 MG TABLET PO (09:58)
[2021-08-19] MEDS: Ascorbic Acid 500 MG TABLET PO (09:59)
[2021-08-19] MEDS: Folic Acid 1 MG TABLET PO (09:59)
[2021-08-19] MEDS: Heparin Sodium,Porcine 5,000 UNIT/ML VIAL 5000 UNIT SUBCUT ×2 (10:03→22:23)
[2021-08-19] MEDS: Acetaminophen 325 MG TABLET 650 MG PO (10:05)
--- NOTE | 2021-08-19 11:01 | P.PNIM_ITS ---
Subjective Subjective Date of Service: 08/19/21 Interval History: No complaints but unreliable historian. Review of Systems Review of Systems: Yes Unobtainable due to mental status Physical Exam Vital Signs: Vital Signs: Last Vital Signs Temp 97.3 F 08/19/21 08:00 Pulse 61 08/19/21 08:00 Resp 18 08/19/21 08:00 BP 125/71 08/19/21 08:00 Pulse Ox 98 08/19/21 08:00 BMI result Body Mass Index 22.1 Gen: in no acute distress HEENT: sclera anicteric, moist mucus membranes Neck: supple Lungs: clear to auscultation bilaterally Heart: regular rate and rhythm, no murmurs Abd: soft, non-tender, non-distended Ext: no edema Skin: warm/well-perfused Neuro: disoriented Psych: impaired insight Objective Data Active Medications Acetaminophen (Acetaminophen 325 Mg Tablet) 650 mg PO Q4H PRN PRN Reason: mild pain Last Admin: 08/19/21 10:05 Dose: 650 mg Documented by: GM Ascorbic Acid (Ascorbic Acid 500 Mg Tablet) 500 mg PO DAILY [facility] Last Admin: 08/19/21 09:59 Dose: 500 mg Documented by: GM Folic Acid (Folic Acid 1 Mg Tablet) 1 mg PO DAILY [facility] Last Admin: 08/19/21 09:59 Dose: 1 mg Documented by: GM Guaifenesin/Dextromethorphan (Guaifenesin Dm 100/10/5 Ml 5 Ml Syrup) 10 ml PO Q6H PRN PRN Reason: cough Heparin Sodium (Porcine) (Heparin Sodium,Porcine 5,000 Unit/Ml Vial) 5,000 unit SUBCUT Q12H [facility] Last Admin: 08/19/21 10:03 Dose: 5,000 unit Documented by: GM Hydroxyzine HCl (Hydroxyzine Hcl 50 Mg/Ml Vial) 25 mg IM Q6H PRN PRN Reason: anxiety/restlessness Last Admin: 08/18/21 16:00 Dose: 25 mg Documented by: MICHEAL Remdesivir 200 mg/ Sodium (Chloride) 210 mls @ 105 mls/hr IV ONCE ONE Stop: 08/19/21 12:59 Remdesivir 100 mg/ Sodium (Chloride) 230 mls @ 115 mls/hr IV Q24H [facility] Stop: 08/21/21 12:59 Olanzapine (Olanzapine 5 Mg Tablet) 5 mg PO BEDTIME [facility] Last Admin: 08/18/21 19:28 Dose: 5 mg Documented by: KARMA Omeprazole (Omeprazole 20 Mg Capsule.) 20 mg PO DAILY@0630 [facility] Last Admin: 08/19/21 05:24 Dose: 20 mg Documented by: RASHI Pharmacy Consult (Consult Rx Perform Med Rec) 1 each MISCELLANE ONCE PRN PRN Reason: Consult order Senna (Sennosides 8.6 Mg Tablet) 8.6 mg PO DAILY [facility] Last Admin: 08/19/21 09:58 Dose: 8.6 mg Documented by: GM Thiamine HCl (Thiamine Hcl 100 Mg Tablet) 100 mg PO DAILY [facility] Last Admin: 08/19/21 09:58 Dose: 100 mg Documented by: GM Trazodone HCl (Trazodone Hcl 50 Mg Tablet) 50 mg PO BEDTIME [facility] Last Admin: 08/18/21 19:28 Dose: 50 mg Documented by: KARMA Labs CBC & Chem 7: 08/18/21 06:20 08/19/21 06:19 Labs: Laboratory Results - last 24 hr 08/18/21 08/19/21 08/19/21 06:20 06:19 06:19 D-Dimer High Sensitivty 607 Anion Gap 11 L Estim Creat Clear Calc 52.9 Estimated GFR > 60 Random Glucose 104 Calcium 8.9 Total Bilirubin < 0.2 0.3 Direct Bilirubin < 0.2 AST 25 D 25 ALT 22 22 Alkaline Phosphatase 89 D 82 Total Protein 6.5 6.4 L Albumin 3.5 3.5 Assessment and Plan (1) COVID-19 virus infection: Status: Acute (2) Dementia with behavioral disturbance: Status: Acute (3) Adult failure to thrive: Status: Acute Assessment and Plan: hospital d#83 75 yo M who presented to the ED on 05/23/21 for AMS and failure to thrive. He was initially going to be placed at a facility, but on 05/29 was noted to have cough and a CXR revealed a new R base infiltrate concerning for aspiration pneumonia; has completed Abx course and now awaiting placement, received COVID vaccine developed symptomatic Covid-19 infection 08/17/21 without hypoxia # Covid-19 infection - not hypoxic but given high risk of severe disease due to age + dementia, will give 3 days of remdesivir [today is d#07/30] # dementia with behavioral disturbances - no behavioral issues noted - continue medications per psych, seen by psych- does not have capacity # aspiration pneumonia - completed treatment - continue nectar thick and ground/mech [NDD2] diet # suspected scabies - treated with permethrin x 2 doses, no new rash noted # stage 2 pressure ucler (L heel / M medial heel) and stage I bilateral buttock- present on admission - continue wound care - foam dressing to heel - continue barrier cream, + air loss bed + high-protein diet (on supplements) # dispo - awaiting LTC placement Quality Stroke Does the patient have a stroke diagnosis?: No VTE Prior VTE?: No VTE Risk Level:: Medical - moderate - high VTE Device Contraindication: N/A - Device Ordered VTE Drug Contraindication: N/A - Med Ordered
[2021-08-19 11:12] VITALS: BP 119/57; PULSE 82; RESP 18; TEMP 36.5; O2SAT 96
[2021-08-19] MEDS: Remdesivir 200 MG in 0.9 % Sodium Chloride 210 ML 105 MG IV (15:19)
[2021-08-19 15:31] VITALS: BP 141/69; PULSE 89; RESP 16; TEMP 36.2; O2SAT 98
[2021-08-19] MEDS: traZODone HCL 50 MG TABLET PO (22:23)
[2021-08-19] MEDS: hydrOXYzine HCL 50 MG/ML VIAL 25 MG IM (22:23)
[2021-08-19] MEDS: OLANZapine 5 MG TABLET PO (22:23)
[2021-08-19 23:39] VITALS: BP 128/58; PULSE 68; RESP 18; TEMP 36.8; O2SAT 95
[2021-08-20] MEDS: Omeprazole 20 MG CAPSULE.DR PO (05:59)
[2021-08-20 06:40] LABS: Hematocrit 36.4 % (42.0-52.0); Hemoglobin 11.5 g/dl (14.0-18.0); Mean Corpuscular HGB Conc 31.6 g/dl (31.0-36.0); Mean Corpuscular Hemoglobin 30.1 pg (27.0-33.0); Mean Corpuscular Volume 95.3 fL (80.0-98.0); Mean Platelet Volume 11.4 fL (9.4-12.4); Platelet Count 179 X10*3/uL (160-400); Red Blood Count 3.82 X10*6/uL (4.60-5.80); Red Cell Distribution Width 13.9 % (11.0-16.0); White Blood Count 6.4 X10*3/uL (4.8-10.8)
[2021-08-20 06:46] LABS: Alanine Aminotransferase 21 U/L (0-40); Albumin Level 3.6 g/dL (3.5-5.0); Alkaline Phosphatase 85 U/L (39-117); Anion Gap 12 (12-20); Aspartate Amino Transferase 23 U/L (5-37); Bilirubin Total 0.3 mg/dL (0.0-1.0); Blood Urea Nitrogen 30 mg/dL (9-16); C Reactive Protein 4.16 mg/dL (< or = 0.50); Calcium 8.8 mg/dL (8.4-10.2); Carbon Dioxide 30 mmol/L (22-29); Chloride 105 mmol/L (96-108); Creatinine Clr Calc Pharmacy 50.5; Estimated Glomerular Filt Rate > 60; Glucose Random 89 mg/dL (60-115); Potassium 4.3 mmol/L (3.3-5.1); Sodium 143 mmol/L (135-145); Total Protein 6.6 g/dL (6.5-8.0)
[2021-08-20 07:01] VITALS: BP 133/59; PULSE 52; RESP 20; TEMP 36.6; O2SAT 98
[2021-08-20] MEDS: Heparin Sodium,Porcine 5,000 UNIT/ML VIAL 5000 UNIT SUBCUT ×2 (09:14→19:30)
[2021-08-20] MEDS: Folic Acid 1 MG TABLET PO (09:15)
[2021-08-20] MEDS: Sennosides 8.6 MG TABLET PO (09:15)
[2021-08-20] MEDS: Thiamine HCL 100 MG TABLET PO (09:15)
[2021-08-20] MEDS: Ascorbic Acid 500 MG TABLET PO (09:15)
[2021-08-20 11:09] VITALS: BP 117/58; PULSE 68; RESP 18; TEMP 35.8; O2SAT 95
[2021-08-20] MEDS: Remdesivir 100 MG in 0.9 % Sodium Chloride 230 ML 115 MG IV (13:57)
--- NOTE | 2021-08-20 14:25 | HO.PM.IMPN ---
Subjective Subjective Date of Service: 08/20/21 Interval History: Sitting comfortably, not eating much noted to be agitated. Review of Systems Review of Systems: Yes Unobtainable due to mental status Physical Exam Vital Signs: Vital Signs: Last Vital Signs Temp 96.5 F L 08/20/21 11:09 Pulse 68 08/20/21 11:09 Resp 18 08/20/21 11:09 BP 117/58 L 08/20/21 11:09 Pulse Ox 95 08/20/21 11:09 BMI result Body Mass Index 22.1 Const: Other: Gen: Resting comfortably,no acute distress HEENT: sclera anicteric, moist mucus membranes Neck: supple Lungs: clear to auscultation bilaterally Heart: regular rate and rhythm, no murmurs Abd: soft, non-tender, obese, bowel sounds audible Ext: no edema Skin: warm/well-perfused Neuro: disoriented Psych: impaired insight ? Objective Data Active Medications Acetaminophen (Acetaminophen 325 Mg Tablet) 650 mg PO Q4H PRN PRN Reason: mild pain Last Admin: 08/19/21 10:05 Dose: 650 mg Documented by: GM Ascorbic Acid (Ascorbic Acid 500 Mg Tablet) 500 mg PO DAILY [facility] Last Admin: 08/20/21 09:15 Dose: 500 mg Documented by: YUMIKO Folic Acid (Folic Acid 1 Mg Tablet) 1 mg PO DAILY [facility] Last Admin: 08/20/21 09:15 Dose: 1 mg Documented by: YUMIKO Guaifenesin/Dextromethorphan (Guaifenesin Dm 100/10/5 Ml 5 Ml Syrup) 10 ml PO Q6H PRN PRN Reason: cough Heparin Sodium (Porcine) (Heparin Sodium,Porcine 5,000 Unit/Ml Vial) 5,000 unit SUBCUT Q12H [facility] Last Admin: 08/20/21 09:14 Dose: 5,000 unit Documented by: YUMIKO Hydroxyzine HCl (Hydroxyzine Hcl 50 Mg/Ml Vial) 25 mg IM Q6H PRN PRN Reason: anxiety/restlessness Last Admin: 08/19/21 22:23 Dose: 25 mg Documented by: MICHEAL Remdesivir 100 mg/ Sodium (Chloride) 230 mls @ 115 mls/hr IV Q24H [facility] Stop: 08/21/21 12:59 Last Admin: 08/20/21 13:57 Dose: 115 mls/hr Documented by: YUMIKO Olanzapine (Olanzapine 5 Mg Tablet) 5 mg PO BEDTIME [facility] Last Admin: 08/19/21 22:23 Dose: 5 mg Documented by: MICHEAL Omeprazole (Omeprazole 20 Mg Capsule.) 20 mg PO DAILY@0630 [facility] Last Admin: 08/20/21 05:59 Dose: 20 mg Documented by: MICHEAL Pharmacy Consult (Consult Rx Perform Med Rec) 1 each MISCELLANE ONCE PRN PRN Reason: Consult order Senna (Sennosides 8.6 Mg Tablet) 8.6 mg PO DAILY [facility] Last Admin: 08/20/21 09:15 Dose: 8.6 mg Documented by: YUMIKO Thiamine HCl (Thiamine Hcl 100 Mg Tablet) 100 mg PO DAILY [facility] Last Admin: 08/20/21 09:15 Dose: 100 mg Documented by: YUMIKO Trazodone HCl (Trazodone Hcl 50 Mg Tablet) 50 mg PO BEDTIME [facility] Last Admin: 08/19/21 22:23 Dose: 50 mg Documented by: MICHEAL Labs CBC & Chem 7: 08/20/21 06:16 08/20/21 06:16 Labs: Laboratory Results - last 24 hr 08/20/21 08/20/21 06:16 06:16 MCV 95.3 MCH 30.1 MCHC 31.6 RDW 13.9 Plt Count 179 MPV 11.4 Absolute Nucleated RBC 0.000 Nucleated RBC % (auto) 0.0 Anion Gap 12 Estim Creat Clear Calc 50.5 Estimated GFR > 60 Random Glucose 89 Calcium 8.8 Total Bilirubin 0.3 AST 23 ALT 21 Alkaline Phosphatase 85 C-Reactive Protein 4.16 H Total Protein 6.6 Albumin 3.6 Assessment and Plan (1) COVID-19 virus infection: Status: Acute (2) Dementia with behavioral disturbance: Status: Acute (3) Adult failure to thrive: Status: Acute Assessment and Plan: 75 yo M who presented to the ED on 05/23/21 for AMS and failure to thrive. He was initially going to be placed at a facility, but on 05/29 was noted to have cough and a CXR revealed a new R base infiltrate concerning for aspiration pneumonia; has completed Abx course and now awaiting placement, received COVID vaccine developed symptomatic Covid-19 infection 08/17/21 without hypoxia # Covid-19 infection - not hypoxic but given high risk of severe disease due to age + dementia, receiving 3 days of remdesivir [today is d#2/3] # dementia with behavioral disturbances - noted to be aggressive this morning refusing breakfast - continue medications per psych, seen by psych- does not have capacity # aspiration pneumonia - completed treatment - continue nectar thick and ground/mech [NDD2] diet # suspected scabies - treated with permethrin x 2 doses, no new rash noted # stage 2 pressure ucler (L heel / M medial heel) and stage I bilateral buttock- present on admission - continue wound care - foam dressing to heel - continue barrier cream, + air loss bed + high-protein diet (on supplements) # dispo - awaiting LTC placement Quality Stroke Does the patient have a stroke diagnosis?: No VTE Prior VTE?: No VTE Risk Level:: Medical - moderate - high VTE Device Contraindication: N/A - Device Ordered VTE Drug Contraindication: N/A - Med Ordered
[2021-08-20 15:38] VITALS: BP 113/64; PULSE 61; RESP 18; TEMP 36.6; O2SAT 95
[2021-08-20] MEDS: OLANZapine 5 MG TABLET PO (19:31)
[2021-08-20] MEDS: traZODone HCL 50 MG TABLET PO (19:31)
[2021-08-21 08:00] VITALS: BP 122/58; PULSE 70; RESP 18; TEMP 36.1; O2SAT 99
[2021-08-21] MEDS: Folic Acid 1 MG TABLET PO (10:24)
[2021-08-21] MEDS: Sennosides 8.6 MG TABLET PO (10:24)
[2021-08-21] MEDS: Thiamine HCL 100 MG TABLET PO (10:24)
[2021-08-21] MEDS: Ascorbic Acid 500 MG TABLET PO (10:25)
[2021-08-21] MEDS: Heparin Sodium,Porcine 5,000 UNIT/ML VIAL 5000 UNIT SUBCUT ×2 (10:28→23:04)
[2021-08-21] MEDS: Remdesivir 100 MG in 0.9 % Sodium Chloride 230 ML 115 MG IV (13:03)
--- NOTE | 2021-08-21 13:07 | PC.NURSE ---
had to override remdesivir barcode scan, medication given late
--- NOTE | 2021-08-21 15:07 | HO.PM.IMPN ---
Subjective Subjective Date of Service: 08/21/21 Interval History: No acute events overnight. Physical Exam Vital Signs: Vital Signs: Last Vital Signs Temp 96.9 F 08/21/21 08:00 Pulse 70 08/21/21 08:00 Resp 18 08/21/21 08:00 BP 122/58 L 08/21/21 08:00 Pulse Ox 99 08/21/21 08:00 BMI result Body Mass Index 22.1 Const: Other: Gen:? Resting comfortably,no acute distress HEENT: sclera anicteric, moist mucus membranes Neck: supple Lungs: clear to auscultation bilaterally Heart: regular rate and rhythm, no murmurs Abd: soft, non-tender, obese, bowel sounds audible Ext: no edema Skin: warm/well-perfused Neuro: disoriented Psych: impaired insight Objective Data Active Medications Acetaminophen (Acetaminophen 325 Mg Tablet) 650 mg PO Q4H PRN PRN Reason: mild pain Last Admin: 08/19/21 10:05 Dose: 650 mg Documented by: GM Ascorbic Acid (Ascorbic Acid 500 Mg Tablet) 500 mg PO DAILY [facility] Last Admin: 08/21/21 10:25 Dose: 500 mg Documented by: GM Folic Acid (Folic Acid 1 Mg Tablet) 1 mg PO DAILY [facility] Last Admin: 08/21/21 10:24 Dose: 1 mg Documented by: GM Guaifenesin/Dextromethorphan (Guaifenesin Dm 100/10/5 Ml 5 Ml Syrup) 10 ml PO Q6H PRN PRN Reason: cough Heparin Sodium (Porcine) (Heparin Sodium,Porcine 5,000 Unit/Ml Vial) 5,000 unit SUBCUT Q12H [facility] Last Admin: 08/21/21 10:28 Dose: 5,000 unit Documented by: MG Hydroxyzine HCl (Hydroxyzine Hcl 50 Mg/Ml Vial) 25 mg IM Q6H PRN PRN Reason: anxiety/restlessness Last Admin: 08/19/21 22:23 Dose: 25 mg Documented by: MICHEAL Olanzapine (Olanzapine 5 Mg Tablet) 5 mg PO BEDTIME [facility] Last Admin: 08/20/21 19:31 Dose: 5 mg Documented by: KARMA Omeprazole (Omeprazole 20 Mg Capsule.) 20 mg PO DAILY@0630 [facility] Last Admin: 08/21/21 05:56 Dose: Not Given Documented by: KARMA Non-Admin Reason: Patient Asleep Pharmacy Consult (Consult Rx Perform Med Rec) 1 each MISCELLANE ONCE PRN PRN Reason: Consult order Senna (Sennosides 8.6 Mg Tablet) 8.6 mg PO DAILY [facility] Last Admin: 08/21/21 10:24 Dose: 8.6 mg Documented by: GM Thiamine HCl (Thiamine Hcl 100 Mg Tablet) 100 mg PO DAILY [facility] Last Admin: 08/21/21 10:24 Dose: 100 mg Documented by: GM Trazodone HCl (Trazodone Hcl 50 Mg Tablet) 50 mg PO BEDTIME [facility] Last Admin: 08/20/21 19:31 Dose: 50 mg Documented by: KARMA Labs CBC & Chem 7: 08/20/21 06:16 08/20/21 06:16 Assessment and Plan (1) COVID-19 virus infection: Status: Acute (2) Dementia with behavioral disturbance: Status: Acute (3) Adult failure to thrive: Status: Acute Assessment and Plan: 75 yo M who presented to the ED on 05/23/21 for AMS and failure to thrive. He was initially going to be placed at a facility, but on 05/29 was noted to have cough and a CXR revealed a new R base infiltrate concerning for aspiration pneumonia; has completed Abx course and now awaiting placement, received COVID vaccine developed symptomatic Covid-19 infection 08/17/21 without hypoxia # Covid-19 infection - not hypoxic but given high risk of severe disease due to age + dementia, receiving 3 days of remdesivir last day today # dementia with behavioral disturbances - continue medications per psych, seen by psych- does not have capacity # aspiration pneumonia - completed treatment - continue nectar thick and ground/mech [NDD2] diet # suspected scabies - treated with permethrin x 2 doses, no new rash noted # stage 2 pressure ucler (L heel / M medial heel) and stage I bilateral buttock- present on admission - continue wound care - foam dressing to heel - continue barrier cream, + air loss bed + high-protein diet (on supplements) # dispo - awaiting LTC placement Quality Stroke Does the patient have a stroke diagnosis?: No VTE Prior VTE?: No VTE Risk Level:: Medical - moderate - high VTE Device Contraindication: N/A - Device Ordered VTE Drug Contraindication: N/A - Med Ordered
[2021-08-21 15:23] VITALS: BP 112/56; PULSE 60; RESP 18; TEMP 36.9; O2SAT 96
[2021-08-21] MEDS: OLANZapine 5 MG TABLET PO (23:05)
[2021-08-21] MEDS: traZODone HCL 50 MG TABLET PO (23:05)
[2021-08-21 23:55] VITALS: BP 119/66; PULSE 100; RESP 18; TEMP 37.1; O2SAT 96
[2021-08-22 07:11] VITALS: BP 144/76; PULSE 56; RESP 16; TEMP 36.3; O2SAT 99
[2021-08-22] MEDS: Heparin Sodium,Porcine 5,000 UNIT/ML VIAL 5000 UNIT SUBCUT ×2 (09:38→22:01)
[2021-08-22] MEDS: Folic Acid 1 MG TABLET PO (09:39)
[2021-08-22] MEDS: Ascorbic Acid 500 MG TABLET PO (09:39)
[2021-08-22] MEDS: Sennosides 8.6 MG TABLET PO (09:39)
[2021-08-22] MEDS: Thiamine HCL 100 MG TABLET PO (09:39)
[2021-08-22 10:53] LABS: Glucose, Whole Blood 116 mg/dL (60-115)
--- NOTE | 2021-08-22 11:25 | MHC.CM.PN ---
Patient will require LTC placement, pending the resolution of financial issues. CM will follow.
--- NOTE | 2021-08-22 14:54 | PC.NURSE ---
Patient OOB to chair with 1 minmal assist. chair cushion in place. Chair alarm on and sitter at bedside. No complaints from patient at this time. will continue to monitor
--- NOTE | 2021-08-22 15:22 | P.PNIM_ITS ---
Subjective Subjective Date of Service: 08/22/21 Interval History: sitter at bedside, no behavioral issues this morning, no acute events overnight. Review of Systems Review of Systems: Yes Unobtainable due to mental status Physical Exam Verdana 4l Vital Signs: Verdana 4d Verdana 4d Vital Signs: Verdana 4d Verdana 4Bd Last Vital Signs Verdana 4d Crystalizer Tender New 4d Crystalizer Tender New 4d Temp 97.3 F 08/22/21 07:11 Crystalizer Tender New 4d Pulse 56 08/22/21 07:11 Crystalizer Tender New 4d Resp 16 08/22/21 07:11 BP 144/76 H 08/22/21 07:11 Pulse Ox 99 08/22/21 07:11 BMI result Body Mass Index 22.1 Const: Other: Gen:? Resting comfortably,no acute distress Neck: supple Lungs: clear to auscultation bilaterally Heart: regular rate and rhythm, no murmurs Abd: soft, non-tender, obese, bowel sounds audible Ext: no edema Skin: warm/well-perfused Neuro: disoriented Psych: impaired insight Objective Data Active Medications Acetaminophen (Acetaminophen 325 Mg Tablet) 650 mg PO Q4H PRN PRN Reason: mild pain Last Admin: 08/19/21 10:05 Dose: 650 mg Documented by: GM Ascorbic Acid (Ascorbic Acid 500 Mg Tablet) 500 mg PO DAILY [facility] Last Admin: 08/22/21 09:39 Dose: 500 mg Documented by: YUMIKO Folic Acid (Folic Acid 1 Mg Tablet) 1 mg PO DAILY [facility] Last Admin: 08/22/21 09:39 Dose: 1 mg Documented by: YUMIKO Guaifenesin/Dextromethorphan (Guaifenesin Dm 100/10/5 Ml 5 Ml Syrup) 10 ml PO Q6H PRN PRN Reason: cough Heparin Sodium (Porcine) (Heparin Sodium,Porcine 5,000 Unit/Ml Vial) 5,000 unit SUBCUT Q12H [facility] Last Admin: 08/22/21 09:38 Dose: 5,000 unit Documented by: YUMIKO Hydroxyzine HCl (Hydroxyzine Hcl 50 Mg/Ml Vial) 25 mg IM Q6H PRN PRN Reason: anxiety/restlessness Last Admin: 08/19/21 22:23 Dose: 25 mg Documented by: MICHEAL Olanzapine (Olanzapine 5 Mg Tablet) 5 mg PO BEDTIME [facility] Last Admin: 08/21/21 23:05 Dose: 5 mg Documented by: KARMA Omeprazole (Omeprazole 20 Mg Capsule.) 20 mg PO DAILY@0630 [facility] Last Admin: 08/22/21 06:05 Dose: Not Given Documented by: KARMA Non-Admin Reason: Patient Asleep Senna (Sennosides 8.6 Mg Tablet) 8.6 mg PO DAILY [facility] Last Admin: 08/22/21 09:39 Dose: 8.6 mg Documented by: YUMIKO Thiamine HCl (Thiamine Hcl 100 Mg Tablet) 100 mg PO DAILY [facility] Last Admin: 08/22/21 09:39 Dose: 100 mg Documented by: YUMIKO Trazodone HCl (Trazodone Hcl 50 Mg Tablet) 50 mg PO BEDTIME [facility] Last Admin: 08/21/21 23:05 Dose: 50 mg Documented by: KARMA Labs CBC & Chem 7: 08/20/21 06:16 08/20/21 06:16 Labs: Laboratory Results - last 24 hr 08/22/21 10:48 POC Glucose 116 H Assessment and Plan (1) COVID-19 virus infection: Status: Acute (2) Dementia with behavioral disturbance: Status: Acute (3) Adult failure to thrive: Status: Acute Plan 75 yo M who presented to the ED on 05/23/21 for AMS and failure to thrive. He was initially going to be placed at a facility, but on 05/29 was noted to have cough and a CXR revealed a new R base infiltrate concerning for aspiration pneumonia; has completed Abx course and now awaiting placement, received COVID vaccine developed symptomatic Covid-19 infection 08/17/21 without hypoxia # Covid-19 infection - not hypoxic but given high risk of severe disease due to age + dementia, received 3 days of remdesivir # dementia with behavioral disturbances - continue medications per psych, seen by psych- does not have capacity , no behavioral issues in last 24 hours # aspiration pneumonia - completed treatment - continue nectar thick and ground/mech [NDD2] diet # suspected scabies - treated with permethrin x 2 doses, no new rash noted # stage 2 pressure ucler (L heel / M medial heel) and stage I bilateral buttock- present on admission - continue wound care - foam dressing to heel - continue barrier cream, + air loss bed + high-protein diet (on supplements) # dispo - awaiting LTC placement Quality Stroke Does the patient have a stroke diagnosis?: No VTE Prior VTE?: No VTE Risk Level:: Medical - moderate - high VTE Device Contraindication: N/A - Device Ordered VTE Drug Contraindication: N/A - Med Ordered
[2021-08-22 15:23] VITALS: BP 153/71; PULSE 61; RESP 14; TEMP 36.6; O2SAT 98
[2021-08-22] MEDS: OLANZapine 5 MG TABLET PO (22:01)
[2021-08-22] MEDS: traZODone HCL 50 MG TABLET PO (22:01)
[2021-08-22 23:42] VITALS: BP 127/67; PULSE 58; RESP 18; TEMP 36.4; O2SAT 96
[2021-08-23 07:54] VITALS: BP 135/69; PULSE 57; RESP 20; TEMP 36.4; O2SAT 95
[2021-08-23] MEDS: Heparin Sodium,Porcine 5,000 UNIT/ML VIAL 5000 UNIT SUBCUT ×2 (10:39→19:56)
[2021-08-23] MEDS: Ascorbic Acid 500 MG TABLET PO (10:40)
[2021-08-23] MEDS: Thiamine HCL 100 MG TABLET PO (10:40)
[2021-08-23] MEDS: Sennosides 8.6 MG TABLET PO (10:40)
[2021-08-23] MEDS: Folic Acid 1 MG TABLET PO (10:40)
--- NOTE | 2021-08-23 11:32 | P.PNIM_ITS ---
Subjective Subjective Date of Service: 08/23/21 Interval History: No acute events overnight, offers no acute complaints resting comfortably. Review of Systems Review of Systems: Yes Unobtainable due to mental status Physical Exam Verdana 4l Vital Signs: Verdana 4d Verdana 4d Vital Signs: Verdana 4d Verdana 4Bd Last Vital Signs Verdana 4d Ground Source Heat Pump Technician New 4d Ground Source Heat Pump Technician New 4d Temp 97.5 F 08/23/21 07:54 Ground Source Heat Pump Technician New 4d Pulse 57 08/23/21 07:54 Ground Source Heat Pump Technician New 4d Resp 20 08/23/21 07:54 BP 135/69 08/23/21 07:54 Pulse Ox 95 08/23/21 07:54 BMI result Body Mass Index 22.1 Const: Other: Gen:? Resting comf ortably,no acute d istress Neck: supp le Lungs: clear to auscultation bila terally Heart: reg ular rate and rhyt hm, no murmurs Abd : soft, non-tender , obese, bowel hattie nds audible Ext: n o edema Skin: warm /well-perfused Jose David ro: disoriented Ps ych: impaired insi ght Objective Data Active Medications Acetaminophen (Acetaminophen 325 Mg Tablet) 650 mg PO Q4H PRN PRN Reason: mild pain Last Admin: 08/19/21 10:05 Dose: 650 mg Documented by: GM Ascorbic Acid (Ascorbic Acid 500 Mg Tablet) 500 mg PO DAILY [facility] Last Admin: 08/23/21 10:40 Dose: 500 mg Documented by: MURIEL Folic Acid (Folic Acid 1 Mg Tablet) 1 mg PO DAILY [facility] Last Admin: 08/23/21 10:40 Dose: 1 mg Documented by: MURIEL Guaifenesin/Dextromethorphan (Guaifenesin Dm 100/10/5 Ml 5 Ml Syrup) 10 ml PO Q6H PRN PRN Reason: cough Heparin Sodium (Porcine) (Heparin Sodium,Porcine 5,000 Unit/Ml Vial) 5,000 unit SUBCUT Q12H [facility] Last Admin: 08/23/21 10:39 Dose: 5,000 unit Documented by: MURIEL Hydroxyzine HCl (Hydroxyzine Hcl 50 Mg/Ml Vial) 25 mg IM Q6H PRN PRN Reason: anxiety/restlessness Last Admin: 08/19/21 22:23 Dose: 25 mg Documented by: MICHEAL Olanzapine (Olanzapine 5 Mg Tablet) 5 mg PO BEDTIME [facility] Last Admin: 08/22/21 22:01 Dose: 5 mg Documented by: JOSE Omeprazole (Omeprazole 20 Mg Capsule.) 20 mg PO DAILY@0630 [facility] Last Admin: 08/23/21 06:45 Dose: Not Given Documented by: ANTOIC Non-Admin Reason: Patient Asleep Senna (Sennosides 8.6 Mg Tablet) 8.6 mg PO DAILY [facility] Last Admin: 08/23/21 10:40 Dose: 8.6 mg Documented by: MURIEL Thiamine HCl (Thiamine Hcl 100 Mg Tablet) 100 mg PO DAILY [facility] Last Admin: 08/23/21 10:40 Dose: 100 mg Documented by: MURIEL Trazodone HCl (Trazodone Hcl 50 Mg Tablet) 50 mg PO BEDTIME [facility] Last Admin: 08/22/21 22:01 Dose: 50 mg Documented by: JOSE Labs CBC & Chem 7: 08/20/21 06:16 08/20/21 06:16 Assessment and Plan (1) COVID-19 virus infection: Status: Acute (2) Dementia with behavioral disturbance: Status: Acute (3) Adult failure to thrive: Status: Acute Plan 75 yo M who presented to the ED on 05/23/21 for AMS and failure to thrive. He was initially going to be placed at a facility, but on 05/29 was noted to have cough and a CXR revealed a new R base infiltrate concerning for aspiration pneumonia; has completed Abx course and now awaiting placement, received COVID vaccine developed symptomatic Covid-19 infection 08/17/21 without hypoxia # Covid-19 infection - clinically remained stable no hypoxia, status post 3 days of remdesivir, given due to high risk of severe disease due to age + dementia # dementia with behavioral disturbances - continue medications per psych, seen by psych- does not have capacity , no behavioral issues # aspiration pneumonia - completed treatment - continue nectar thick and ground/mech [NDD2] diet # suspected scabies - treated with permethrin x 2 doses, no new rash noted # stage 2 pressure ucler (L heel / M medial heel) and stage I bilateral buttock- present on admission - continue wound care - foam dressing to heel - continue barrier cream, + air loss bed + high-protein diet (on supplements) # dispo - awaiting LTC placement Quality Stroke Does the patient have a stroke diagnosis?: No VTE Prior VTE?: No VTE Risk Level:: Medical - moderate - high VTE Device Contraindication: N/A - Device Ordered VTE Drug Contraindication: N/A - Med Ordered
[2021-08-23 15:27] VITALS: BP 147/68; PULSE 35; RESP 16; TEMP 37.3; O2SAT 98
[2021-08-23] MEDS: traZODone HCL 50 MG TABLET PO (19:56)
[2021-08-23] MEDS: OLANZapine 5 MG TABLET PO (19:56)
[2021-08-23 23:37] VITALS: BP 108/60; PULSE 50; RESP 18; TEMP 36.5; O2SAT 98
[2021-08-24 08:00] VITALS: BP 140/65; PULSE 60; RESP 18; TEMP 36.6; O2SAT 98
[2021-08-24] MEDS: Folic Acid 1 MG TABLET PO (10:50)
[2021-08-24] MEDS: Ascorbic Acid 500 MG TABLET PO (10:50)
[2021-08-24] MEDS: Sennosides 8.6 MG TABLET PO (10:50)
[2021-08-24] MEDS: Thiamine HCL 100 MG TABLET PO (10:50)
--- NOTE | 2021-08-24 13:20 | P.PNIM_ITS ---
Subjective Subjective Date of Service: 08/24/21 Interval History: no acute events overnight, tolerating diet, no behavioral issues. Review of Systems Review of Systems: Yes Unobtainable due to mental status Physical Exam Verdana 4l Vital Signs: Verdana 4d Verdana 4d Vital Signs: Verdana 4d Verdana 4Bd Last Vital Signs Verdana 4d Foot Cutter New 4d Foot Cutter New 4d Temp 97.8 F 08/24/21 08:00 Foot Cutter New 4d Pulse 60 08/24/21 08:00 Foot Cutter New 4d Resp 18 08/24/21 08:00 BP 140/65 H 08/24/21 08:00 Pulse Ox 98 08/24/21 08:00 BMI result Body Mass Index 22.1 Const: Other: Gen:? Resting comfortably,no acute distress Neck: supple Lungs: clear to auscultation bilaterally Heart: regular rate and rhythm, no murmurs Abd: soft, non-tender, obese, bowel sounds audible Ext: no edema Skin: warm/well-perfused Neuro: disoriented Psych: impaired insight Objective Data Active Medications Acetaminophen (Acetaminophen 325 Mg Tablet) 650 mg PO Q4H PRN PRN Reason: mild pain Last Admin: 08/19/21 10:05 Dose: 650 mg Documented by: GM Ascorbic Acid (Ascorbic Acid 500 Mg Tablet) 500 mg PO DAILY [facility] Last Admin: 08/24/21 10:50 Dose: 500 mg Documented by: MURIEL Folic Acid (Folic Acid 1 Mg Tablet) 1 mg PO DAILY [facility] Last Admin: 08/24/21 10:50 Dose: 1 mg Documented by: MURIEL Guaifenesin/Dextromethorphan (Guaifenesin Dm 100/10/5 Ml 5 Ml Syrup) 10 ml PO Q6H PRN PRN Reason: cough Heparin Sodium (Porcine) (Heparin Sodium,Porcine 5,000 Unit/Ml Vial) 5,000 unit SUBCUT Q12H [facility] Last Admin: 08/24/21 12:02 Dose: Not Given Documented by: MURIEL Non-Admin Reason: Patient Refused Hydroxyzine HCl (Hydroxyzine Hcl 50 Mg/Ml Vial) 25 mg IM Q6H PRN PRN Reason: anxiety/restlessness Last Admin: 08/19/21 22:23 Dose: 25 mg Documented by: MICHEAL Olanzapine (Olanzapine 5 Mg Tablet) 5 mg PO BEDTIME [facility] Last Admin: 08/23/21 19:56 Dose: 5 mg Documented by: GABY Omeprazole (Omeprazole 20 Mg Capsule.) 20 mg PO DAILY@0630 [facility] Last Admin: 08/24/21 05:48 Dose: Not Given Documented by: GABY Non-Admin Reason: cant be crushed Senna (Sennosides 8.6 Mg Tablet) 8.6 mg PO DAILY [facility] Last Admin: 08/24/21 10:50 Dose: 8.6 mg Documented by: MURIEL Thiamine HCl (Thiamine Hcl 100 Mg Tablet) 100 mg PO DAILY [facility] Last Admin: 08/24/21 10:50 Dose: 100 mg Documented by: MURIEL Trazodone HCl (Trazodone Hcl 50 Mg Tablet) 50 mg PO BEDTIME [facility] Last Admin: 08/23/21 19:56 Dose: 50 mg Documented by: GABY Labs CBC & Chem 7: 08/20/21 06:16 08/20/21 06:16 Assessment and Plan (1) COVID-19 virus infection: Status: Acute (2) Dementia with behavioral disturbance: Status: Acute (3) Adult failure to thrive: Status: Acute Plan 75 yo M who presented to the ED on 05/23/21 for AMS and failure to thrive. He was initially going to be placed at a facility, but on 05/29 was noted to have cough and a CXR revealed a new R base infiltrate concerning for aspiration pneumonia; has completed Abx course and now awaiting placement, received COVID vaccine developed symptomatic Covid-19 infection 08/17/21 without hypoxia # Covid-19 infection - clinically remained stable no hypoxia, status post 3 days of remdesivir, given due to high risk of severe disease due to age + dementia # dementia with behavioral disturbances - No behavioral issues noted in last several days, patient has no capacity, continue current psych meds # aspiration pneumonia - no recurrent episode,completed treatment - continue nectar thick and ground/mech [NDD2] diet # suspected scabies - treated with permethrin x 2 doses, no new rash noted # stage 2 pressure ucler (L heel / M medial heel) and stage I bilateral buttock- present on admission - continue wound care - foam dressing to heel, continue barrier cream, + air loss bed + high-protein diet (on supplements) # dispo - awaiting LTC placement Quality Stroke Does the patient have a stroke diagnosis?: No VTE Prior VTE?: No VTE Risk Level:: Medical - moderate - high VTE Device Contraindication: N/A - Device Ordered VTE Drug Contraindication: N/A - Med Ordered
[2021-08-24 15:43] VITALS: BP 173/72; PULSE 60; RESP 18; TEMP 36.2; O2SAT 99
[2021-08-24] MEDS: Heparin Sodium,Porcine 5,000 UNIT/ML VIAL 5000 UNIT SUBCUT (20:59)
[2021-08-24] MEDS: traZODone HCL 50 MG TABLET PO (21:00)
[2021-08-24] MEDS: OLANZapine 5 MG TABLET PO (21:00)
[2021-08-24] MEDS: hydrOXYzine HCL 50 MG/ML VIAL 25 MG IM (21:01)
[2021-08-25] VITALS: BP 147/78; PULSE 59; RESP 17; TEMP 37; O2SAT 96
--- NOTE | 2021-08-25 03:08 | PM.EVENT ---
Event Note Date of Service: 08/25/21 Event Note: pt severely sundwoning. aggressive and abusve towards staff, and keeps getting out of bed increasing his risk of fall. given 2.5 iv haldol
[2021-08-25] MEDS: Haloperidol Lactate 5 MG/ML VIAL 2.5 MG IVPUSH (04:18)
--- NOTE | 2021-08-25 04:22 | PC.NURSE ---
Patient grew increasingly agitated overnight. He was in need of constant redirection and being stated by the in room camera. Patient then got a rounder to stay with them as a safety measure and started being aggressive and yelling at the rounder. Also insisted on walking without walker even though patient has an unsteady gait. Overnight hospitalist notified and ordered 0.5mL of Haldol
[2021-08-25 08:00] VITALS: BP 140/80; PULSE 62; RESP 18; TEMP 36.6; O2SAT 95
--- NOTE | 2021-08-25 10:36 | P.PNIM_ITS ---
Subjective Subjective Date of Service: 08/25/21 Interval History: laying in the bed, looks comfortable not in distress, sleeping Burst in agigation overnight requiring IV Haldol No reported other overnight events. Systemic review: No fever, chills or weakness No chest pain, palpitation No shortness of breath or coughing No abdominal pain, nausea or vomiting Physical Exam Verdana 4l Vital Signs: Verdana 4d Verdana 4d Vital Signs: Verdana 4d Verdana 4Bd Last Vital Signs Verdana 4d Nurse Transitional New 4d Nurse Transitional New 4d Temp 97.8 F 08/25/21 08:00 Nurse Transitional New 4d Pulse 62 08/25/21 08:00 Nurse Transitional New 4d Resp 18 08/25/21 08:00 BP 140/80 H 08/25/21 08:00 Pulse Ox 95 08/25/21 08:00 BMI result Body Mass Index 22.1 Const: Other: Constitutional : sleepy, disoriented, not in distress Neck : Normal inspection, Supple Respiratory : Chest moving bilaterally, no respiratory distress Neurological : Alert & disoriented, No focal deficit Objective Data Active Medications Acetaminophen (Acetaminophen 325 Mg Tablet) 650 mg PO Q4H PRN PRN Reason: mild pain Last Admin: 08/19/21 10:05 Dose: 650 mg Documented by: GM Ascorbic Acid (Ascorbic Acid 500 Mg Tablet) 500 mg PO DAILY [facility] Last Admin: 08/24/21 10:50 Dose: 500 mg Documented by: MURIEL Folic Acid (Folic Acid 1 Mg Tablet) 1 mg PO DAILY [facility] Last Admin: 08/24/21 10:50 Dose: 1 mg Documented by: MURIEL Guaifenesin/Dextromethorphan (Guaifenesin Dm 100/10/5 Ml 5 Ml Syrup) 10 ml PO Q6H PRN PRN Reason: cough Heparin Sodium (Porcine) (Heparin Sodium,Porcine 5,000 Unit/Ml Vial) 5,000 unit SUBCUT Q12H [facility] Last Admin: 08/24/21 20:59 Dose: 5,000 unit Documented by: BRIANNA Hydroxyzine HCl (Hydroxyzine Hcl 50 Mg/Ml Vial) 25 mg IM Q6H PRN PRN Reason: anxiety/restlessness Last Admin: 08/24/21 21:01 Dose: 25 mg Documented by: BRIANNA Olanzapine (Olanzapine 5 Mg Tablet) 5 mg PO BEDTIME [facility] Last Admin: 08/24/21 21:00 Dose: 5 mg Documented by: BRIANNA Omeprazole (Omeprazole 20 Mg Capsule.Dr) 20 mg PO DAILY@0630 [facility] Last Admin: 08/25/21 06:22 Dose: Not Given Documented by: BRIANNA Non-Admin Reason: Patient Asleep Quetiapine Fumarate (Quetiapine Fumarate 25 Mg Tablet) 25 mg PO DAILY@1700 PRN PRN Reason: anxiety/restlessness Senna (Sennosides 8.6 Mg Tablet) 8.6 mg PO DAILY [facility] Last Admin: 08/24/21 10:50 Dose: 8.6 mg Documented by: MURIEL Thiamine HCl (Thiamine Hcl 100 Mg Tablet) 100 mg PO DAILY [facility] Last Admin: 08/24/21 10:50 Dose: 100 mg Documented by: MURIEL Trazodone HCl (Trazodone Hcl 50 Mg Tablet) 50 mg PO BEDTIME [facility] Last Admin: 08/24/21 21:00 Dose: 50 mg Documented by: BRIANNA Labs CBC & Chem 7: 08/20/21 06:16 08/20/21 06:16 Assessment and Plan (1) COVID-19 virus infection: Status: Acute (2) Dementia with behavioral disturbance: Status: Acute Plan 75 yo M who presented to the ED on 05/23/21 for AMS and failure to thrive. He was initially going to be placed at a facility, but on 05/29 was noted to have cough and a CXR revealed a new R base infiltrate concerning for aspiration pneumonia; has completed Abx course and now awaiting placement, received COVID vaccine developed symptomatic Covid-19 infection 08/17/21 without hypoxia # Covid-19 infection clinically remained stable no hypoxia, status post 3 days of remdesivir, given due to high risk of severe disease due to age + dementia # dementia with behavioral disturbances Had burst of agitation overnight, responded to Haldol Use Seroquel as needed, redirection No behavioral issues noted in last several days, patient has no capacity, continue current psych meds # aspiration pneumonia - no recurrent episode,completed treatment - continue nectar thick and ground/mech [NDD2] diet # suspected scabies - treated with permethrin x 2 doses, no new rash noted # stage 2 pressure ucler (L heel / M medial heel) and stage I bilateral buttock- present on admission - continue wound care - foam dressing to heel, continue barrier cream, + air loss bed + high-protein diet (on supplements) # dispo - awaiting LTC placement Quality Stroke Does the patient have a stroke diagnosis?: No VTE Prior VTE?: No VTE Risk Level:: Medical - moderate - high VTE Device Contraindication: N/A - Device Ordered VTE Drug Contraindication: N/A - Med Ordered
[2021-08-25] MEDS: Thiamine HCL 100 MG TABLET PO (11:02)
[2021-08-25] MEDS: Heparin Sodium,Porcine 5,000 UNIT/ML VIAL 5000 UNIT SUBCUT ×2 (11:02→20:48)
[2021-08-25] MEDS: hydrOXYzine HCL 50 MG/ML VIAL 25 MG IM (11:02)
[2021-08-25] MEDS: Folic Acid 1 MG TABLET PO (11:02)
[2021-08-25] MEDS: Ascorbic Acid 500 MG TABLET PO (11:02)
[2021-08-25] MEDS: Sennosides 8.6 MG TABLET PO (11:02)
[2021-08-25 15:51] VITALS: BP 126/80; PULSE 72; RESP 15; TEMP 36.6; O2SAT 92
[2021-08-25] MEDS: OLANZapine 5 MG TABLET PO (20:48)
[2021-08-25] MEDS: traZODone HCL 50 MG TABLET PO (20:48)
[2021-08-25 23:44] VITALS: BP 122/62; PULSE 56; RESP 16; TEMP 36.6; O2SAT 100
[2021-08-26] MEDS: Omeprazole 20 MG CAPSULE.DR PO (06:49)
[2021-08-26 07:31] VITALS: BP 158/74; PULSE 73; RESP 18; TEMP 36.6; O2SAT 98
[2021-08-26] MEDS: Heparin Sodium,Porcine 5,000 UNIT/ML VIAL 5000 UNIT SUBCUT ×2 (09:45→22:28)
[2021-08-26] MEDS: Ascorbic Acid 500 MG TABLET PO (09:45)
[2021-08-26] MEDS: Sennosides 8.6 MG TABLET PO (09:45)
[2021-08-26] MEDS: Folic Acid 1 MG TABLET PO (09:45)
[2021-08-26] MEDS: Thiamine HCL 100 MG TABLET PO (09:45)
--- NOTE | 2021-08-26 13:56 | HO.PM.IMPN ---
Subjective Subjective Date of Service: 08/26/21 Interval History: laying in the bed, looks comfortable not in distress, sleeping No reported other overnight events. Systemic review: No fever, chills or weakness No chest pain, palpitation No shortness of breath or coughing No abdominal pain, nausea or vomiting Physical Exam Vital Signs: Vital Signs: Last Vital Signs Temp 97.8 F 08/26/21 07:31 Pulse 73 08/26/21 07:31 Resp 18 08/26/21 07:31 BP 158/74 H 08/26/21 07:31 Pulse Ox 98 08/26/21 07:31 BMI result Body Mass Index 22.1 Const: Other: Constitutional : sleepy, disoriented, not in distress Neck : Normal inspection, Supple Respiratory : Chest moving bilaterally, no respiratory distress Neurological : Alert & disoriented, No focal deficit Objective Data Active Medications Acetaminophen (Acetaminophen 325 Mg Tablet) 650 mg PO Q4H PRN PRN Reason: mild pain Last Admin: 08/19/21 10:05 Dose: 650 mg Documented by: GM Ascorbic Acid (Ascorbic Acid 500 Mg Tablet) 500 mg PO DAILY [facility] Last Admin: 08/26/21 09:45 Dose: 500 mg Documented by: DAREN Folic Acid (Folic Acid 1 Mg Tablet) 1 mg PO DAILY [facility] Last Admin: 08/26/21 09:45 Dose: 1 mg Documented by: ADREN Guaifenesin/Dextromethorphan (Guaifenesin Dm 100/10/5 Ml 5 Ml Syrup) 10 ml PO Q6H PRN PRN Reason: cough Heparin Sodium (Porcine) (Heparin Sodium,Porcine 5,000 Unit/Ml Vial) 5,000 unit SUBCUT Q12H [facility] Last Admin: 08/26/21 09:45 Dose: 5,000 unit Documented by: DAREN Hydroxyzine HCl (Hydroxyzine Hcl 50 Mg/Ml Vial) 25 mg IM Q6H PRN PRN Reason: anxiety/restlessness Last Admin: 08/25/21 11:02 Dose: 25 mg Documented by: DAREN Olanzapine (Olanzapine 5 Mg Tablet) 5 mg PO BEDTIME [facility] Last Admin: 08/25/21 20:48 Dose: 5 mg Documented by: CLARENCE Omeprazole (Omeprazole 20 Mg Capsule.) 20 mg PO DAILY@0630 [facility] Last Admin: 08/26/21 06:49 Dose: 20 mg Documented by: CLARENCE Quetiapine Fumarate (Quetiapine Fumarate 25 Mg Tablet) 25 mg PO DAILY@1700 PRN PRN Reason: anxiety/restlessness Senna (Sennosides 8.6 Mg Tablet) 8.6 mg PO DAILY [facility] Last Admin: 08/26/21 09:45 Dose: 8.6 mg Documented by: DAREN Thiamine HCl (Thiamine Hcl 100 Mg Tablet) 100 mg PO DAILY [facility] Last Admin: 08/26/21 09:45 Dose: 100 mg Documented by: DAREN Trazodone HCl (Trazodone Hcl 50 Mg Tablet) 50 mg PO BEDTIME [facility] Last Admin: 08/25/21 20:48 Dose: 50 mg Documented by: CLARENCE Labs CBC & Chem 7: 08/20/21 06:16 08/20/21 06:16 Assessment and Plan (1) COVID-19 virus infection: Status: Acute (2) Dementia with behavioral disturbance: Status: Acute Plan 75 yo M who presented to the ED on 05/23/21 for AMS and failure to thrive. He was initially going to be placed at a facility, but on 05/29 was noted to have cough and a CXR revealed a new R base infiltrate concerning for aspiration pneumonia; has completed Abx course and now awaiting placement, received COVID vaccine developed symptomatic Covid-19 infection 08/17/21 without hypoxia # Covid-19 infection clinically remained stable no hypoxia, status post 3 days of remdesivir, given due to high risk of severe disease due to age + dementia # dementia with behavioral disturbances Use Seroquel as needed, redirection No behavioral issues noted in last several days, patient has no capacity, continue current psych meds # aspiration pneumonia - no recurrent episode,completed treatment - continue nectar thick and ground/mech [NDD2] diet # suspected scabies - treated with permethrin x 2 doses, no new rash noted # stage 2 pressure ucler (L heel / M medial heel) and stage I bilateral buttock- present on admission - continue wound care - foam dressing to heel, continue barrier cream, + air loss bed + high-protein diet (on supplements) # dispo - awaiting LTC placement Quality Stroke Does the patient have a stroke diagnosis?: No VTE Prior VTE?: No VTE Risk Level:: Medical - moderate - high VTE Device Contraindication: N/A - Device Ordered VTE Drug Contraindication: N/A - Med Ordered
[2021-08-26 15:32] VITALS: BP 110/53; PULSE 68; RESP 18; TEMP 36.7; O2SAT 96
[2021-08-26] MEDS: OLANZapine 5 MG TABLET PO (22:28)
[2021-08-26] MEDS: traZODone HCL 50 MG TABLET PO (22:29)
[2021-08-26 22:45] VITALS: BP 102/60; PULSE 60; RESP 18; TEMP 36.6; O2SAT 96
[2021-08-27 07:37] VITALS: BP 128/57; RESP 20; TEMP 36.9; O2SAT 96
[2021-08-27] MEDS: Folic Acid 1 MG TABLET PO (10:11)
[2021-08-27] MEDS: Heparin Sodium,Porcine 5,000 UNIT/ML VIAL 5000 UNIT SUBCUT ×2 (10:11→19:52)
[2021-08-27] MEDS: Thiamine HCL 100 MG TABLET PO (10:12)
[2021-08-27] MEDS: Omeprazole 20 MG CAPSULE.DR PO (10:12)
[2021-08-27] MEDS: Ascorbic Acid 500 MG TABLET PO (10:12)
[2021-08-27] MEDS: Sennosides 8.6 MG TABLET PO (10:12)
--- NOTE | 2021-08-27 13:33 | P.PNIM_ITS ---
Subjective Subjective Date of Service: 08/27/21 Interval History: laying in the bed, looks comfortable not in distress, sleeping No reported other overnight events. Systemic review: No fever, chills or weakness No chest pain, palpitation No shortness of breath or coughing No abdominal pain, nausea or vomiting Physical Exam Verdana 4l Vital Signs: Verdana 4d Verdana 4d Vital Signs: Verdana 4d Verdana 4Bd Last Vital Signs Verdana 4d Dimensional Inspector New 4d Dimensional Inspector New 4d Temp 98.5 F 08/27/21 07:37 Dimensional Inspector New 4d Pulse 60 08/26/21 22:45 Dimensional Inspector New 4d Resp 20 08/27/21 07:37 BP 128/57 L 08/27/21 07:37 Pulse Ox 96 08/27/21 07:37 BMI result Body Mass Index 22.1 Const: Other: Constitutional : sleepy, disoriented, not in distress Neck : Normal inspection, Supple Respiratory : Chest moving bilaterally, no respiratory distress Neurological : Alert & disoriented, No focal deficit Objective Data Active Medications Acetaminophen (Acetaminophen 325 Mg Tablet) 650 mg PO Q4H PRN PRN Reason: mild pain Last Admin: 08/19/21 10:05 Dose: 650 mg Documented by: GM Ascorbic Acid (Ascorbic Acid 500 Mg Tablet) 500 mg PO DAILY [facility] Last Admin: 08/27/21 10:12 Dose: 500 mg Documented by: MAITE Folic Acid (Folic Acid 1 Mg Tablet) 1 mg PO DAILY [facility] Last Admin: 08/27/21 10:11 Dose: 1 mg Documented by: MAITE Guaifenesin/Dextromethorphan (Guaifenesin Dm 100/10/5 Ml 5 Ml Syrup) 10 ml PO Q6H PRN PRN Reason: cough Heparin Sodium (Porcine) (Heparin Sodium,Porcine 5,000 Unit/Ml Vial) 5,000 unit SUBCUT Q12H [facility] Last Admin: 08/27/21 10:11 Dose: 5,000 unit Documented by: MAITE Hydroxyzine HCl (Hydroxyzine Hcl 50 Mg/Ml Vial) 25 mg IM Q6H PRN PRN Reason: anxiety/restlessness Last Admin: 08/25/21 11:02 Dose: 25 mg Documented by: DAREN Olanzapine (Olanzapine 5 Mg Tablet) 5 mg PO BEDTIME [facility] Last Admin: 08/26/21 22:28 Dose: 5 mg Documented by: ABDIAZIZ Omeprazole (Omeprazole 20 Mg Capsule.) 20 mg PO DAILY@0630 [facility] Last Admin: 08/27/21 10:12 Dose: 20 mg Documented by: MAITE Quetiapine Fumarate (Quetiapine Fumarate 25 Mg Tablet) 25 mg PO DAILY@1700 PRN PRN Reason: anxiety/restlessness Senna (Sennosides 8.6 Mg Tablet) 8.6 mg PO DAILY [facility] Last Admin: 08/27/21 10:12 Dose: 8.6 mg Documented by: MAITE Thiamine HCl (Thiamine Hcl 100 Mg Tablet) 100 mg PO DAILY [facility] Last Admin: 08/27/21 10:12 Dose: 100 mg Documented by: MAITE Trazodone HCl (Trazodone Hcl 50 Mg Tablet) 50 mg PO BEDTIME [facility] Last Admin: 08/26/21 22:29 Dose: 50 mg Documented by: ABDIAZIZ Labs CBC & Chem 7: 08/20/21 06:16 08/20/21 06:16 Assessment and Plan (1) COVID-19 virus infection: Status: Acute (2) Dementia with behavioral disturbance: Status: Acute Plan 75 yo M who presented to the ED on 05/23/21 for AMS and failure to thrive. He was initially going to be placed at a facility, but on 05/29 was noted to have cough and a CXR revealed a new R base infiltrate concerning for aspiration pneumonia; has completed Abx course and now awaiting placement, received COVID vaccine developed symptomatic Covid-19 infection 08/17/21 without hypoxia # Covid-19 infection clinically remained stable no hypoxia, status post 3 days of remdesivir, given due to high risk of severe disease due to age + dementia # dementia with behavioral disturbances Use Seroquel as needed, redirection No behavioral issues noted in last several days, patient has no capacity, continue current psych meds # aspiration pneumonia - no recurrent episode,completed treatment - continue nectar thick and ground/mech [NDD2] diet # suspected scabies - treated with permethrin x 2 doses, no new rash noted # stage 2 pressure ucler (L heel / M medial heel) and stage I bilateral buttock- present on admission - continue wound care - foam dressing to heel, continue barrier cream, + air loss bed + high-protein diet (on supplements) # dispo - awaiting LTC placement Quality Stroke Does the patient have a stroke diagnosis?: No VTE Prior VTE?: No VTE Risk Level:: Medical - moderate - high VTE Device Contraindication: N/A - Device Ordered VTE Drug Contraindication: N/A - Med Ordered
[2021-08-27 15:23] VITALS: BP 130/57; PULSE 62; RESP 18; TEMP 36.5; O2SAT 95
[2021-08-27] MEDS: OLANZapine 5 MG TABLET PO (19:52)
[2021-08-27] MEDS: traZODone HCL 50 MG TABLET PO (19:52)
[2021-08-27 23:31] VITALS: BP 143/64; PULSE 49; RESP 18; TEMP 36.5; O2SAT 99
[2021-08-28 07:00] LABS: Anion Gap 12 (12-20); Blood Urea Nitrogen 25 mg/dL (9-16); Calcium 8.9 mg/dL (8.4-10.2); Carbon Dioxide 29 mmol/L (22-29); Chloride 106 mmol/L (96-108); Creatinine Clr Calc Pharmacy 50.1; Estimated Glomerular Filt Rate > 60; Glucose Random 95 mg/dL (60-115); Sodium 143 mmol/L (135-145)
[2021-08-28 07:27] VITALS: BP 124/62; PULSE 63; RESP 18; TEMP 36.6; O2SAT 99
[2021-08-28] MEDS: Folic Acid 1 MG TABLET PO (08:28)
[2021-08-28] MEDS: Sennosides 8.6 MG TABLET PO (08:28)
[2021-08-28] MEDS: Heparin Sodium,Porcine 5,000 UNIT/ML VIAL 5000 UNIT SUBCUT ×2 (08:28→21:13)
[2021-08-28] MEDS: Ascorbic Acid 500 MG TABLET PO (08:29)
[2021-08-28] MEDS: Thiamine HCL 100 MG TABLET PO (08:29)
[2021-08-28] MEDS: Acetaminophen 325 MG TABLET 650 MG PO (08:29)
[2021-08-28 15:24] VITALS: BP 131/59; PULSE 70; RESP 18; TEMP 36.6; O2SAT 100
--- NOTE | 2021-08-28 16:15 | P.PNIM_ITS ---
Subjective Subjective Date of Service: 08/28/21 Interval History: laying in the bed, looks comfortable not in distress, sleeping No reported other overnight events. Systemic review: No fever, chills or weakness No chest pain, palpitation No shortness of breath or coughing No abdominal pain, nausea or vomiting Physical Exam Verdana 4l Vital Signs: Verdana 4d Verdana 4d Vital Signs: Verdana 4d Verdana 4Bd Last Vital Signs Verdana 4d Casino Runner New 4d Casino Runner New 4d Temp 97.8 F 08/28/21 15:24 Casino Runner New 4d Pulse 70 08/28/21 15:24 Casino Runner New 4d Resp 18 08/28/21 15:24 BP 131/59 L 08/28/21 15:24 Pulse Ox 100 08/28/21 15:24 BMI result Body Mass Index 22.1 Const: Other: Constitutional : sleepy, disoriented, not in distress Neck : Normal inspection, Supple Respiratory : Chest moving bilaterally, no respiratory distress Neurological : Alert & disoriented, No focal deficit Objective Data Active Medications Acetaminophen (Acetaminophen 325 Mg Tablet) 650 mg PO Q4H PRN PRN Reason: mild pain Last Admin: 08/28/21 08:29 Dose: 650 mg Documented by: MAITE Ascorbic Acid (Ascorbic Acid 500 Mg Tablet) 500 mg PO DAILY [facility] Last Admin: 08/28/21 08:29 Dose: 500 mg Documented by: MAITE Guaifenesin/Dextromethorphan (Guaifenesin Dm 100/10/5 Ml 5 Ml Syrup) 10 ml PO Q6H PRN PRN Reason: cough Heparin Sodium (Porcine) (Heparin Sodium,Porcine 5,000 Unit/Ml Vial) 5,000 unit SUBCUT Q12H [facility] Last Admin: 08/28/21 08:28 Dose: 5,000 unit Documented by: MAITE Hydroxyzine HCl (Hydroxyzine Hcl 50 Mg/Ml Vial) 25 mg IM Q6H PRN PRN Reason: anxiety/restlessness Last Admin: 08/25/21 11:02 Dose: 25 mg Documented by: DAREN Olanzapine (Olanzapine 5 Mg Tablet) 5 mg PO BEDTIME [facility] Last Admin: 08/27/21 19:52 Dose: 5 mg Documented by: JOSE Quetiapine Fumarate (Quetiapine Fumarate 25 Mg Tablet) 25 mg PO DAILY@1700 PRN PRN Reason: anxiety/restlessness Senna (Sennosides 8.6 Mg Tablet) 8.6 mg PO DAILY [facility] Last Admin: 08/28/21 08:28 Dose: 8.6 mg Documented by: EVIEENOAL Trazodone HCl (Trazodone Hcl 50 Mg Tablet) 50 mg PO BEDTIME [facility] Last Admin: 08/27/21 19:52 Dose: 50 mg Documented by: ANDRORO Labs CBC & Chem 7: 08/20/21 06:16 08/28/21 06:06 Labs: Laboratory Results - last 24 hr 08/28/21 06:06 Anion Gap 12 Estim Creat Clear Calc 50.1 Estimated GFR > 60 Random Glucose 95 Calcium 8.9 Assessment and Plan (1) COVID-19 virus infection: Status: Acute (2) Dementia with behavioral disturbance: Status: Acute Plan 75 yo M who presented to the ED on 05/23/21 for AMS and failure to thrive. He was initially going to be placed at a facility, but on 05/29 was noted to have cough and a CXR revealed a new R base infiltrate concerning for aspiration pneumonia; has completed Abx course and now awaiting placement, received COVID vaccine developed symptomatic Covid-19 infection 08/17/21 without hypoxia # Covid-19 infection clinically remained stable no hypoxia, status post 3 days of remdesivir, given due to high risk of severe disease due to age + dementia # dementia with behavioral disturbances Use Seroquel as needed, redirection No behavioral issues noted in last several days, patient has no capacity, continue current psych meds # aspiration pneumonia - no recurrent episode,completed treatment - continue nectar thick and ground/mech [NDD2] diet # suspected scabies - treated with permethrin x 2 doses, no new rash noted # stage 2 pressure ucler (L heel / M medial heel) and stage I bilateral buttock- present on admission - continue wound care - foam dressing to heel, continue barrier cream, + air loss bed + high-protein diet (on supplements) # dispo - awaiting LTC placement Quality Stroke Does the patient have a stroke diagnosis?: No VTE Prior VTE?: No VTE Risk Level:: Medical - moderate - high VTE Device Contraindication: N/A - Device Ordered VTE Drug Contraindication: N/A - Med Ordered
--- NOTE | 2021-08-28 18:42 | PC.NURSE ---
Pt is pleasantly confused and is impulsive. Pt continues to be on 1:1 fo safety.
[2021-08-28] MEDS: OLANZapine 5 MG TABLET PO (21:13)
[2021-08-28] MEDS: traZODone HCL 50 MG TABLET PO (21:13)
[2021-08-28 23:39] VITALS: PULSE 58; TEMP 36.1
[2021-08-29] MEDS: hydrOXYzine HCL 50 MG/ML VIAL 25 MG IM (00:07)
[2021-08-29 07:01] VITALS: BP 132/58; PULSE 66; RESP 17; TEMP 36.7; O2SAT 98
[2021-08-29] MEDS: Sennosides 8.6 MG TABLET PO (09:36)
[2021-08-29] MEDS: Heparin Sodium,Porcine 5,000 UNIT/ML VIAL 5000 UNIT SUBCUT ×2 (09:36→21:43)
[2021-08-29] MEDS: Ascorbic Acid 500 MG TABLET PO (09:37)
[2021-08-29 11:32] VITALS: BP 151/70; PULSE 90; RESP 18; TEMP 36.9; O2SAT 99
--- NOTE | 2021-08-29 13:15 | P.PNIM_ITS ---
Subjective Subjective Date of Service: 08/29/21 Interval History: no complaints ENT Ears, Nose, Mouth, and Throat: Reports system reviewed and no additional complaints, except as documented Cardiovascular Cardiovascular: Reports no additional cardiovascular complaints Physical Exam Verdana 4l Vital Signs: Verdana 4d Verdana 4d Vital Signs: Verdana 4d Verdana 4Bd Last Vital Signs Verdana 4d Assistant Professor Of Art New 4d Assistant Professor Of Art New 4d Temp 98.5 F 08/29/21 11:32 Assistant Professor Of Art New 4d Pulse 90 08/29/21 11:32 Assistant Professor Of Art New 4d Resp 18 08/29/21 11:32 BP 151/70 H 08/29/21 11:32 Pulse Ox 99 08/29/21 11:32 BMI result Body Mass Index 22.1 Const Other: Constitutional : sleepy, disoriented, not in distress Neck : Normal inspection, Supple Respiratory :? Chest moving bilaterally, no respiratory distress Neurological : Alert & disoriented, No focal deficit Objective Data Active Medications Acetaminophen (Acetaminophen 325 Mg Tablet) 650 mg PO Q4H PRN PRN Reason: mild pain Last Admin: 08/28/21 08:29 Dose: 650 mg Documented by: MAITE Ascorbic Acid (Ascorbic Acid 500 Mg Tablet) 500 mg PO DAILY [facility] Last Admin: 08/29/21 09:37 Dose: 500 mg Documented by: YUMIKO Guaifenesin/Dextromethorphan (Guaifenesin Dm 100/10/5 Ml 5 Ml Syrup) 10 ml PO Q6H PRN PRN Reason: cough Heparin Sodium (Porcine) (Heparin Sodium,Porcine 5,000 Unit/Ml Vial) 5,000 unit SUBCUT Q12H [facility] Last Admin: 08/29/21 09:36 Dose: 5,000 unit Documented by: YUMIKO Hydroxyzine HCl (Hydroxyzine Hcl 50 Mg/Ml Vial) 25 mg IM Q6H PRN PRN Reason: anxiety/restlessness Last Admin: 08/29/21 00:07 Dose: 25 mg Documented by: JOSE Olanzapine (Olanzapine 5 Mg Tablet) 5 mg PO BEDTIME [facility] Last Admin: 08/28/21 21:13 Dose: 5 mg Documented by: OJSE Quetiapine Fumarate (Quetiapine Fumarate 25 Mg Tablet) 25 mg PO DAILY@1700 PRN PRN Reason: anxiety/restlessness Senna (Sennosides 8.6 Mg Tablet) 8.6 mg PO DAILY [facility] Last Admin: 08/29/21 09:36 Dose: 8.6 mg Documented by: YUMIKO Trazodone HCl (Trazodone Hcl 50 Mg Tablet) 50 mg PO BEDTIME [facility] Last Admin: 08/28/21 21:13 Dose: 50 mg Documented by: JOSE Labs CBC & Chem 7: 08/20/21 06:16 08/28/21 06:06 Assessment and Plan (1) COVID-19 virus infection: Status: Acute (2) Dementia with behavioral disturbance: Status: Acute Plan 75 yo M who presented to the ED on 05/23/21 for AMS and failure to thrive. He was initially going to be placed at a facility, but on 05/29 was noted to have cough and a CXR revealed a new R base infiltrate concerning for aspiration pneumonia; has completed Abx course and now awaiting placement, received COVID vaccine developed symptomatic Covid-19 infection 08/17/21 without hypoxia Covid-19 infection clinically remained stable no hypoxia, status post 3 days of remdesivir now day 12, immunocompetent, will dc airborne precautions dementia with behavioral disturbances Use Seroquel as needed, redirection No behavioral issues noted in last several days, patient has no capacity, continue current psych meds aspiration pneumonia - no recurrent episode,completed treatment - continue nectar thick and ground/mech [NDD2] diet suspected scabies - treated with permethrin x 2 doses, no new rash noted stage 2 pressure ucler (L heel / M medial heel) and stage I bilateral buttock- present on admission - continue wound care - foam dressing to heel, continue barrier cream, + air loss bed + high-protein diet (on supplements) dispo - awaiting LTC placement Quality Stroke Does the patient have a stroke diagnosis?: No VTE Prior VTE?: No VTE Risk Level:: Medical - moderate - high VTE Device Contraindication: N/A - Device Ordered VTE Drug Contraindication: N/A - Med Ordered
[2021-08-29 15:23] VITALS: BP 131/80; PULSE 66; RESP 16; TEMP 36.8; O2SAT 98
--- NOTE | 2021-08-29 15:31 | MHC.CM.PN ---
per rounds pt is dc ready finacial still pending
[2021-08-29] MEDS: traZODone HCL 50 MG TABLET PO (21:43)
[2021-08-29] MEDS: OLANZapine 5 MG TABLET PO (21:43)
[2021-08-30] VITALS: PULSE 52; RESP 16
[2021-08-30 02:05] VITALS: BP 160/83; PULSE 66; RESP 20; TEMP 36.7; O2SAT 96
[2021-08-30 07:10] VITALS: BP 134/75; PULSE 66; RESP 18; TEMP 36.6; O2SAT 97
[2021-08-30] MEDS: Ascorbic Acid 500 MG TABLET PO (09:29)
[2021-08-30] MEDS: Sennosides 8.6 MG TABLET PO (09:29)
--- NOTE | 2021-08-30 10:05 | P.PNIM_ITS ---
Subjective Subjective Date of Service: 08/30/21 Interval History: no complaints Cardiovascular Cardiovascular: Reports no additional cardiovascular complaints Respiratory Respiratory: Reports no additional respiratory complaints Physical Exam Verdana 4l Vital Signs: Verdana 4d Verdana 4d Vital Signs: Verdana 4d Verdana 4Bd Last Vital Signs Verdana 4d Engine Cleaner New 4d Engine Cleaner New 4d Temp 97.9 F 08/30/21 07:10 Engine Cleaner New 4d Pulse 66 08/30/21 07:10 Engine Cleaner New 4d Resp 18 08/30/21 07:10 BP 134/75 08/30/21 07:10 Pulse Ox 97 08/30/21 07:10 BMI result Body Mass Index 22.1 Const Other: Constitutional : sleepy, disoriented, not in distress Neck : Normal inspection, Supple Respiratory :? Chest moving bilaterally, no respiratory distress Neurological : Alert & disoriented, No focal deficit Objective Data Active Medications Acetaminophen (Acetaminophen 325 Mg Tablet) 650 mg PO Q4H PRN PRN Reason: mild pain Last Admin: 08/28/21 08:29 Dose: 650 mg Documented by: MAITE Ascorbic Acid (Ascorbic Acid 500 Mg Tablet) 500 mg PO DAILY [facility] Last Admin: 08/30/21 09:29 Dose: 500 mg Documented by: YUMIKO Guaifenesin/Dextromethorphan (Guaifenesin Dm 100/10/5 Ml 5 Ml Syrup) 10 ml PO Q6H PRN PRN Reason: cough Heparin Sodium (Porcine) (Heparin Sodium,Porcine 5,000 Unit/Ml Vial) 5,000 unit SUBCUT Q12H [facility] Last Admin: 08/30/21 09:29 Dose: Not Given Documented by: YUMIKO Non-Admin Reason: Patient Refused Hydroxyzine HCl (Hydroxyzine Hcl 50 Mg/Ml Vial) 25 mg IM Q6H PRN PRN Reason: anxiety/restlessness Last Admin: 08/29/21 00:07 Dose: 25 mg Documented by: JOSE Olanzapine (Olanzapine 5 Mg Tablet) 5 mg PO BEDTIME [facility] Last Admin: 08/29/21 21:43 Dose: 5 mg Documented by: BENITA Quetiapine Fumarate (Quetiapine Fumarate 25 Mg Tablet) 25 mg PO DAILY@1700 PRN PRN Reason: anxiety/restlessness Senna (Sennosides 8.6 Mg Tablet) 8.6 mg PO DAILY [facility] Last Admin: 08/30/21 09:29 Dose: 8.6 mg Documented by: YUMIKO Trazodone HCl (Trazodone Hcl 50 Mg Tablet) 50 mg PO BEDTIME [facility] Last Admin: 08/29/21 21:43 Dose: 50 mg Documented by: BENITA Labs CBC & Chem 7: 08/20/21 06:16 08/28/21 06:06 Assessment and Plan (1) COVID-19 virus infection: Status: Acute (2) Dementia with behavioral disturbance: Status: Acute Plan 75 yo M who presented to the ED on 05/23/21 for AMS and failure to thrive. He was initially going to be placed at a facility, but on 05/29 was noted to have cough and a CXR revealed a new R base infiltrate concerning for aspiration pneumonia; has completed Abx course and now awaiting placement, received COVID vaccine developed symptomatic Covid-19 infection 08/17/21 without hypoxia Covid-19 infection clinically remained stable no hypoxia, status post 3 days of remdesivir now day 12, immunocompetent, will dc airborne precautions dementia with behavioral disturbances Use Seroquel as needed, redirection No behavioral issues noted in last several days, patient has no capacity, continue current psych meds aspiration pneumonia - no recurrent episode,completed treatment - continue nectar thick and ground/mech [NDD2] diet suspected scabies - treated with permethrin x 2 doses, no new rash noted stage 2 pressure ucler (L heel / M medial heel) and stage I bilateral buttock- present on admission - continue wound care - foam dressing to heel, continue barrier cream, + air loss bed + high-protein diet (on supplements) dispo - awaiting LTC placement Quality Stroke Does the patient have a stroke diagnosis?: No VTE Prior VTE?: No VTE Risk Level:: Medical - moderate - high VTE Device Contraindication: N/A - Device Ordered VTE Drug Contraindication: N/A - Med Ordered
[2021-08-30 16:00] VITALS: BP 118/67; PULSE 62; RESP 16; TEMP 37.1; O2SAT 95
[2021-08-30] MEDS: OLANZapine 5 MG TABLET PO (21:35)
[2021-08-30] MEDS: traZODone HCL 50 MG TABLET PO (21:35)
[2021-08-30] MEDS: Heparin Sodium,Porcine 5,000 UNIT/ML VIAL 5000 UNIT SUBCUT (21:36)
[2021-08-30 23:19] VITALS: BP 139/76; PULSE 72; RESP 18; TEMP 37.1; O2SAT 99
[2021-08-31 08:00] VITALS: BP 152/63; PULSE 66; RESP 20; TEMP 36.1; O2SAT 96
--- NOTE | 2021-08-31 08:26 | MHC.CM.PN ---
Barriers to dc/placement continue to be r/t financial issues and CM will continue to follow.
[2021-08-31] MEDS: Sennosides 8.6 MG TABLET PO (08:28)
[2021-08-31] MEDS: Ascorbic Acid 500 MG TABLET PO (08:28)
--- NOTE | 2021-08-31 11:08 | P.PNIM_ITS ---
Subjective Subjective Date of Service: 08/31/21 Interval History: no complaints Eyes Eyes: Reports no additional eye complaints ENT Ears, Nose, Mouth, and Throat: Reports system reviewed and no additional complaints, except as documented Physical Exam Verdana 4l Vital Signs: Verdana 4d Verdana 4d Vital Signs: Verdana 4d Verdana 4Bd Last Vital Signs Verdana 4d Upper Leather Cutter New 4d Upper Leather Cutter New 4d Temp 97.0 F 08/31/21 08:00 Upper Leather Cutter New 4d Pulse 66 08/31/21 08:00 Upper Leather Cutter New 4d Resp 20 08/31/21 08:00 BP 152/63 H 08/31/21 08:00 Pulse Ox 96 08/31/21 08:00 BMI result Body Mass Index 22.1 Const Other: Constitutional : sleepy, disoriented, not in distress Neck : Normal inspection, Supple Respiratory :? Chest moving bilaterally, no respiratory distress Neurological : Alert & disoriented, No focal deficit Objective Data Active Medications Acetaminophen (Acetaminophen 325 Mg Tablet) 650 mg PO Q4H PRN PRN Reason: mild pain Last Admin: 08/28/21 08:29 Dose: 650 mg Documented by: MAITE Ascorbic Acid (Ascorbic Acid 500 Mg Tablet) 500 mg PO DAILY [facility] Last Admin: 08/31/21 08:28 Dose: 500 mg Documented by: YUMIKO Guaifenesin/Dextromethorphan (Guaifenesin Dm 100/10/5 Ml 5 Ml Syrup) 10 ml PO Q6H PRN PRN Reason: cough Heparin Sodium (Porcine) (Heparin Sodium,Porcine 5,000 Unit/Ml Vial) 5,000 unit SUBCUT Q12H [facility] Last Admin: 08/31/21 08:28 Dose: Not Given Documented by: YUMIKO Non-Admin Reason: Patient Refused Hydroxyzine HCl (Hydroxyzine Hcl 50 Mg/Ml Vial) 25 mg IM Q6H PRN PRN Reason: anxiety/restlessness Last Admin: 08/29/21 00:07 Dose: 25 mg Documented by: JOSE Olanzapine (Olanzapine 5 Mg Tablet) 5 mg PO BEDTIME [facility] Last Admin: 08/30/21 21:35 Dose: 5 mg Documented by: RYDER Quetiapine Fumarate (Quetiapine Fumarate 25 Mg Tablet) 25 mg PO DAILY@1700 PRN PRN Reason: anxiety/restlessness Senna (Sennosides 8.6 Mg Tablet) 8.6 mg PO DAILY [facility] Last Admin: 08/31/21 08:28 Dose: 8.6 mg Documented by: YUMIKO Trazodone HCl (Trazodone Hcl 50 Mg Tablet) 50 mg PO BEDTIME [facility] Last Admin: 08/30/21 21:35 Dose: 50 mg Documented by: RYDER Labs CBC & Chem 7: 08/20/21 06:16 08/28/21 06:06 Assessment and Plan (1) COVID-19 virus infection: Status: Acute (2) Dementia with behavioral disturbance: Status: Acute Plan 75 yo M who presented to the ED on 05/23/21 for AMS and failure to thrive. He was initially going to be placed at a facility, but on 05/29 was noted to have cough and a CXR revealed a new R base infiltrate concerning for aspiration pneumonia; has completed Abx course and now awaiting placement, received COVID vaccine developed symptomatic Covid-19 infection 08/17/21 without hypoxia Covid-19 infection resolved dementia with behavioral disturbances Use Seroquel as needed, redirection No behavioral issues noted in last several days, patient has no capacity, co ntinue current psych meds aspiration pneumonia - no recurrent episode,completed treatment - continue nectar thick and ground/mech [NDD2] diet suspected scabies - treated with permethrin x 2 doses, no new rash noted stage 2 pressure ucler (L heel / M medial heel) and stage I bilateral buttock- p resent on admission - continue wound care - foam dressing to heel, continue barrier cream, + air loss bed + high-protein diet (on supplements) dispo - awaiting LTC placement Quality Stroke Does the patient have a stroke diagnosis?: No VTE Prior VTE?: No VTE Risk Level:: Medical - moderate - high VTE Device Contraindication: N/A - Device Ordered VTE Drug Contraindication: N/A - Med Ordered
--- NOTE | 2021-08-31 15:14 | PC.NURSE ---
patient transferred to [facility]. report given to Melissa WATSON
[2021-08-31 15:22] VITALS: BP 127/61; PULSE 39; RESP 18; TEMP 37; O2SAT 98
[2021-08-31 18:30] VITALS: PULSE 56
[2021-08-31] MEDS: OLANZapine 5 MG TABLET PO (20:31)
[2021-08-31] MEDS: Heparin Sodium,Porcine 5,000 UNIT/ML VIAL 5000 UNIT SUBCUT (20:31)
[2021-08-31] MEDS: traZODone HCL 50 MG TABLET PO (20:31)
[2021-09-01] VITALS: BP 137/61; PULSE 66; RESP 16; TEMP 36.9; O2SAT 95
[2021-09-01] MEDS: Ascorbic Acid 500 MG TABLET PO (07:24)
[2021-09-01] MEDS: Heparin Sodium,Porcine 5,000 UNIT/ML VIAL 5000 UNIT SUBCUT ×2 (07:24→20:05)
[2021-09-01] MEDS: Sennosides 8.6 MG TABLET PO (07:24)
[2021-09-01 08:00] VITALS: BP 127/60; PULSE 54; RESP 18; TEMP 36.4; O2SAT 98
--- NOTE | 2021-09-01 10:13 | P.PNIM_ITS ---
Subjective Subjective Date of Service: 09/01/21 Interval History: no complaints Review of Systems Review of Systems: Yes all other systems are reviewed and are negative Physical Exam Verdana 4l Vital Signs: Verdana 4d Verdana 4d Vital Signs: Verdana 4d Verdana 4Bd Last Vital Signs Verdana 4d Medication Reconciliation Technician New 4d Medication Reconciliation Technician New 4d Temp 97.6 F 09/01/21 08:00 Medication Reconciliation Technician New 4d Pulse 54 09/01/21 08:00 Medication Reconciliation Technician New 4d Resp 18 09/01/21 08:00 BP 127/60 09/01/21 08:00 Pulse Ox 98 09/01/21 08:00 BMI result Body Mass Index 22.1 Const Other: Constitutional : sleepy, disoriented, not in distress Neck : Normal inspection, Supple Respiratory :? Chest moving bilaterally, no respiratory distress Neurological : Alert & disoriented, No focal deficit Objective Data Active Medications Acetaminophen (Acetaminophen 325 Mg Tablet) 650 mg PO Q4H PRN PRN Reason: mild pain Last Admin: 08/28/21 08:29 Dose: 650 mg Documented by: MAITE Ascorbic Acid (Ascorbic Acid 500 Mg Tablet) 500 mg PO DAILY [facility] Last Admin: 09/01/21 07:24 Dose: 500 mg Documented by: ARELY Guaifenesin/Dextromethorphan (Guaifenesin Dm 100/10/5 Ml 5 Ml Syrup) 10 ml PO Q6H PRN PRN Reason: cough Heparin Sodium (Porcine) (Heparin Sodium,Porcine 5,000 Unit/Ml Vial) 5,000 unit SUBCUT Q12H [facility] Last Admin: 09/01/21 07:24 Dose: 5,000 unit Documented by: ARELY Hydroxyzine HCl (Hydroxyzine Hcl 50 Mg/Ml Vial) 25 mg IM Q6H PRN PRN Reason: anxiety/restlessness Last Admin: 08/29/21 00:07 Dose: 25 mg Documented by: JOSE Olanzapine (Olanzapine 5 Mg Tablet) 5 mg PO BEDTIME [facility] Last Admin: 08/31/21 20:31 Dose: 5 mg Documented by: ARELY Quetiapine Fumarate (Quetiapine Fumarate 25 Mg Tablet) 25 mg PO DAILY@1700 PRN PRN Reason: anxiety/restlessness Senna (Sennosides 8.6 Mg Tablet) 8.6 mg PO DAILY [facility] Last Admin: 09/01/21 07:24 Dose: 8.6 mg Documented by: ARELY Trazodone HCl (Trazodone Hcl 50 Mg Tablet) 50 mg PO BEDTIME [facility] Last Admin: 08/31/21 20:31 Dose: 50 mg Documented by: ARELY Labs CBC & Chem 7: 08/20/21 06:16 08/28/21 06:06 Assessment and Plan (1) COVID-19 virus infection: Status: Acute (2) Dementia with behavioral disturbance: Status: Acute Plan 75 yo M who presented to the ED on 05/23/21 for AMS and failure to thrive. He was initially going to be placed at a facility, but on 05/29 was noted to have cough and a CXR revealed a new R base infiltrate concerning for aspiration pneumonia; has completed Abx course and now awaiting placement, received COVID vaccine developed symptomatic Covid-19 infection 08/17/21 without hypoxia Covid-19 infection resolved dementia with behavioral disturbances Use Seroquel as needed, redirection No behavioral issues noted in last several days, patient has no capacity, continue current psych meds aspiration pneumonia - no recurrent episode,completed treatment - continue nectar thick and ground/mech [NDD2] diet suspected scabies - treated with permethrin x 2 doses, no new rash noted stage 2 pressure ucler (L heel / M medial heel) and stage I bilateral buttock- present on admission - continue wound care - foam dressing to heel, continue barrier cream, + air loss bed + high-protein diet (on supplements) dispo - awaiting LTC placement Quality Stroke Does the patient have a stroke diagnosis?: No VTE Prior VTE?: No VTE Risk Level:: Medical - moderate - high VTE Device Contraindication: N/A - Device Ordered VTE Drug Contraindication: N/A - Med Ordered
[2021-09-01] MEDS: hydrOXYzine HCL 25 MG TABLET PO ×2 (12:57→18:06)
[2021-09-01 15:43] VITALS: BP 167/81; PULSE 55; RESP 16; TEMP 36.6; O2SAT 100
[2021-09-01] MEDS: QUEtiapine Fumarate 25 MG TABLET PO (18:06)
[2021-09-01] MEDS: OLANZapine 5 MG TABLET PO (20:05)
[2021-09-01] MEDS: traZODone HCL 50 MG TABLET PO (20:05)
[2021-09-02] VITALS: BP 163/77; PULSE 78; RESP 18; TEMP 36.6; O2SAT 97
[2021-09-02] MEDS: hydrOXYzine HCL 25 MG TABLET PO ×2 (02:01→08:31)
[2021-09-02 07:58] VITALS: BP 149/70; PULSE 67; RESP 19; TEMP 36.2; O2SAT 96
[2021-09-02] MEDS: Heparin Sodium,Porcine 5,000 UNIT/ML VIAL 5000 UNIT SUBCUT ×2 (08:30→19:20)
[2021-09-02] MEDS: Ascorbic Acid 500 MG TABLET PO (08:31)
[2021-09-02] MEDS: Sennosides 8.6 MG TABLET PO (08:31)
--- NOTE | 2021-09-02 09:02 | P.PNIM_ITS ---
Subjective Subjective Date of Service: 09/02/21 Interval History: no complaints Cardiovascular Cardiovascular: Reports no additional cardiovascular complaints Respiratory Respiratory: Reports no additional respiratory complaints Physical Exam Verdana 4l Vital Signs: Verdana 4d Verdana 4d Vital Signs: Verdana 4d Verdana 4Bd Last Vital Signs Verdana 4d Datapower Developer New 4d Datapower Developer New 4d Temp 97.1 F 09/02/21 07:58 Datapower Developer New 4d Pulse 67 09/02/21 07:58 Datapower Developer New 4d Resp 19 09/02/21 07:58 BP 149/70 H 09/02/21 07:58 Pulse Ox 96 09/02/21 07:58 BMI result Body Mass Index 22.1 Const Other: Constitutional : sleepy, disoriented, not in distress Neck : Normal inspection, Supple Respiratory :? Chest moving bilaterally, no respiratory distress Neurological : Alert & disoriented, No focal deficit Objective Data Active Medications Acetaminophen (Acetaminophen 325 Mg Tablet) 650 mg PO Q4H PRN PRN Reason: mild pain Last Admin: 08/28/21 08:29 Dose: 650 mg Documented by: MAITE Ascorbic Acid (Ascorbic Acid 500 Mg Tablet) 500 mg PO DAILY [facility] Last Admin: 09/02/21 08:31 Dose: 500 mg Documented by: MAITE Guaifenesin/Dextromethorphan (Guaifenesin Dm 100/10/5 Ml 5 Ml Syrup) 10 ml PO Q6H PRN PRN Reason: cough Heparin Sodium (Porcine) (Heparin Sodium,Porcine 5,000 Unit/Ml Vial) 5,000 unit SUBCUT Q12H [facility] Last Admin: 09/02/21 08:30 Dose: 5,000 unit Documented by: MAITE Hydroxyzine HCl (Hydroxyzine Hcl 25 Mg Tablet) 25 mg PO Q6H PRN PRN Reason: agitation Last Admin: 09/02/21 08:31 Dose: 25 mg Documented by: MAITE Olanzapine (Olanzapine 5 Mg Tablet) 5 mg PO BEDTIME [facility] Quetiapine Fumarate (Quetiapine Fumarate 25 Mg Tablet) 25 mg PO DAILY@1700 PRN PRN Reason: anxiety/restlessness Last Admin: 09/01/21 18:06 Dose: 25 mg Documented by: MAITE Senna (Sennosides 8.6 Mg Tablet) 8.6 mg PO DAILY [facility] Last Admin: 09/02/21 08:31 Dose: 8.6 mg Documented by: MAITE Trazodone HCl (Trazodone Hcl 50 Mg Tablet) 50 mg PO BEDTIME [facility] Last Admin: 09/01/21 20:05 Dose: 50 mg Documented by: ODRISM Labs CBC & Chem 7: 08/20/21 06:16 08/28/21 06:06 Assessment and Plan (1) COVID-19 virus infection: Status: Acute (2) Dementia with behavioral disturbance: Status: Acute Plan 75 yo M who presented to the ED on 05/23/21 for AMS and failure to thrive. He was initially going to be placed at a facility, but on 05/29 was noted to have cough and a CXR revealed a new R base infiltrate concerning for aspiration pneumonia; has completed Abx course and now awaiting placement, received COVID vaccine developed symptomatic Covid-19 infection 08/17/21 without hypoxia Covid-19 infection resolved dementia with behavioral disturbances Use Seroquel as needed, redirection No behavioral issues noted in last several days, patient has no capacity, continue current psych meds aspiration pneumonia - no recurrent episode,completed treatment - continue nectar thick and ground/mech [NDD2] diet suspected scabies - treated with permethrin x 2 doses, no new rash noted stage 2 pressure ucler (L heel / M medial heel) and stage I bilateral buttock- present on admission - continue wound care - foam dressing to heel, continue barrier cream, + air loss bed + high-protein diet (on supplements) dispo - awaiting LTC placement Quality Stroke Does the patient have a stroke diagnosis?: No VTE Prior VTE?: No VTE Risk Level:: Medical - moderate - high VTE Device Contraindication: N/A - Device Ordered VTE Drug Contraindication: N/A - Med Ordered
[2021-09-02 16:00] VITALS: BP 122/57; PULSE 60; RESP 15; TEMP 36.2; O2SAT 95
[2021-09-02] MEDS: traZODone HCL 50 MG TABLET PO (19:20)
[2021-09-02] MEDS: OLANZapine 5 MG TABLET PO (19:20)
[2021-09-02 23:40] VITALS: BP 127/58; PULSE 89; RESP 16; TEMP 36.4; O2SAT 94
[2021-09-03 07:49] VITALS: BP 120/67; PULSE 87; RESP 18; TEMP 36.1; O2SAT 90
[2021-09-03 08:07] VITALS: O2SAT 97
[2021-09-03] MEDS: Heparin Sodium,Porcine 5,000 UNIT/ML VIAL 5000 UNIT SUBCUT ×2 (08:07→20:43)
[2021-09-03] MEDS: Ascorbic Acid 500 MG TABLET PO (08:08)
[2021-09-03] MEDS: Sennosides 8.6 MG TABLET PO (08:08)
--- NOTE | 2021-09-03 09:00 | P.PNIM_ITS ---
Subjective Subjective Date of Service: 09/03/21 Interval History: no complaints Cardiovascular Cardiovascular: Reports no additional cardiovascular complaints Respiratory Respiratory: Reports no additional respiratory complaints Physical Exam Verdana 4l Vital Signs: Verdana 4d Verdana 4d Vital Signs: Verdana 4d Verdana 4Bd Last Vital Signs Verdana 4d Garage Door Opener Installer New 4d Garage Door Opener Installer New 4d Temp 97.0 F 09/03/21 07:49 Garage Door Opener Installer New 4d Pulse 87 09/03/21 07:49 Garage Door Opener Installer New 4d Resp 18 09/03/21 07:49 BP 120/67 09/03/21 07:49 Pulse Ox 97 09/03/21 08:07 BMI result Body Mass Index 22.1 Const Other: Constitutional : sleepy, disoriented, not in distress Neck : Normal inspection, Supple Respiratory :? Chest moving bilaterally, no respiratory distress Neurological : Alert & disoriented, No focal deficit Objective Data Active Medications Acetaminophen (Acetaminophen 325 Mg Tablet) 650 mg PO Q4H PRN PRN Reason: mild pain Last Admin: 08/28/21 08:29 Dose: 650 mg Documented by: MAITE Ascorbic Acid (Ascorbic Acid 500 Mg Tablet) 500 mg PO DAILY [facility] Last Admin: 09/03/21 08:08 Dose: 500 mg Documented by: APARNA Guaifenesin/Dextromethorphan (Guaifenesin Dm 100/10/5 Ml 5 Ml Syrup) 10 ml PO Q6H PRN PRN Reason: cough Heparin Sodium (Porcine) (Heparin Sodium,Porcine 5,000 Unit/Ml Vial) 5,000 unit SUBCUT Q12H [facility] Last Admin: 09/03/21 08:07 Dose: 5,000 unit Documented by: APARNA Hydroxyzine HCl (Hydroxyzine Hcl 25 Mg Tablet) 25 mg PO Q6H PRN PRN Reason: agitation Last Admin: 09/02/21 08:31 Dose: 25 mg Documented by: MAITE Olanzapine (Olanzapine 5 Mg Tablet) 5 mg PO BEDTIME [facility] Last Admin: 09/02/21 19:20 Dose: 5 mg Documented by: ELODIA Quetiapine Fumarate (Quetiapine Fumarate 25 Mg Tablet) 25 mg PO DAILY@1700 PRN PRN Reason: anxiety/restlessness Last Admin: 09/01/21 18:06 Dose: 25 mg Documented by: HO.NGENOAL Senna (Sennosides 8.6 Mg Tablet) 8.6 mg PO DAILY [facility] Last Admin: 09/03/21 08:08 Dose: 8.6 mg Documented by: APARNA Trazodone HCl (Trazodone Hcl 50 Mg Tablet) 50 mg PO BEDTIME [facility] Last Admin: 09/02/21 19:20 Dose: 50 mg Documented by: ELODIA Labs CBC & Chem 7: 08/20/21 06:16 08/28/21 06:06 Assessment and Plan (1) COVID-19 virus infection: Status: Acute (2) Dementia with behavioral disturbance: Status: Acute Plan 75 yo M who presented to the ED on 05/23/21 for AMS and failure to thrive. He was initially going to be placed at a facility, but on 05/29 was noted to have cough and a CXR revealed a new R base infiltrate concerning for aspiration pneumonia; has completed Abx course and now awaiting placement, received COVID vaccine developed symptomatic Covid-19 infection 08/17/21 without hypoxia Covid-19 infection resolved dementia with behavioral disturbances Use Seroquel as needed, redirection No behavioral issues noted in last several days, patient has no capacity, continue current psych meds aspiration pneumonia - no recurrent episode,completed treatment - continue nectar thick and ground/mech [NDD2] diet suspected scabies - treated with permethrin x 2 doses, no new rash noted stage 2 pressure ucler (L heel / M medial heel) and stage I bilateral buttock- present on admission - continue wound care - foam dressing to heel, continue barrier cream, + air loss bed + high-protein diet (on supplements) dispo - awaiting LTC placement Quality Stroke Does the patient have a stroke diagnosis?: No VTE Prior VTE?: No VTE Risk Level:: Medical - moderate - high VTE Device Contraindication: N/A - Device Ordered VTE Drug Contraindication: N/A - Med Ordered
--- NOTE | 2021-09-03 14:09 | MHC.CM.PN ---
greyson manager of case management ntoe electronic medical record reviewed iris brock with case disxucssed with [facility] and team on multiple disciplainry rounds patients guardian /conservator dtill working on obtainging all financial records in order to compelt [facility] adjunct faculty for medical terminology care appication this needs to be done before [facility] will even consider placement acceptamce
[2021-09-03 15:32] VITALS: BP 119/65; PULSE 54; RESP 17; TEMP 36.3; O2SAT 95
[2021-09-03] MEDS: OLANZapine 5 MG TABLET PO (20:43)
[2021-09-03] MEDS: traZODone HCL 50 MG TABLET PO (20:43)
[2021-09-03 23:41] VITALS: BP 121/67; PULSE 94; RESP 18; TEMP 36.6; O2SAT 96
[2021-09-04 08:00] VITALS: PULSE 65; RESP 18; TEMP 36.5; O2SAT 98
[2021-09-04] MEDS: Heparin Sodium,Porcine 5,000 UNIT/ML VIAL 5000 UNIT SUBCUT ×2 (09:25→19:55)
[2021-09-04] MEDS: Sennosides 8.6 MG TABLET PO (09:26)
[2021-09-04] MEDS: Ascorbic Acid 500 MG TABLET PO (09:26)
--- NOTE | 2021-09-04 09:31 | P.PNIM_ITS ---
Subjective Subjective Date of Service: 09/04/21 Interval History: no complaints Cardiovascular Cardiovascular: Reports no additional cardiovascular complaints Respiratory Respiratory: Reports no additional respiratory complaints Physical Exam Vital Signs: Vital Signs: Last Vital Signs Temp 97.7 F 09/04/21 08:00 Pulse 65 09/04/21 08:00 Resp 18 09/04/21 08:00 BP 121/67 09/03/21 23:41 Pulse Ox 98 09/04/21 08:00 BMI result Body Mass Index 22.1 Const Other: Constitutional : sleepy, disoriented, not in distress Neck : Normal inspection, Supple Respiratory :? Chest moving bilaterally, no respiratory distress Neurological : Alert & disoriented, No focal deficit Objective Data Active Medications Acetaminophen (Acetaminophen 325 Mg Tablet) 650 mg PO Q4H PRN PRN Reason: mild pain Last Admin: 08/28/21 08:29 Dose: 650 mg Documented by: MAITE Ascorbic Acid (Ascorbic Acid 500 Mg Tablet) 500 mg PO DAILY [facility] Last Admin: 09/04/21 09:26 Dose: 500 mg Documented by: SCOTT Guaifenesin/Dextromethorphan (Guaifenesin Dm 100/10/5 Ml 5 Ml Syrup) 10 ml PO Q6H PRN PRN Reason: cough Heparin Sodium (Porcine) (Heparin Sodium,Porcine 5,000 Unit/Ml Vial) 5,000 unit SUBCUT Q12H [facility] Last Admin: 09/04/21 09:25 Dose: 5,000 unit Documented by: SCOTT Hydroxyzine HCl (Hydroxyzine Hcl 25 Mg Tablet) 25 mg PO Q6H PRN PRN Reason: agitation Last Admin: 09/02/21 08:31 Dose: 25 mg Documented by: MAITE Olanzapine (Olanzapine 5 Mg Tablet) 5 mg PO BEDTIME [facility] Last Admin: 09/03/21 20:43 Dose: 5 mg Documented by: CLARENCE Quetiapine Fumarate (Quetiapine Fumarate 25 Mg Tablet) 25 mg PO DAILY@1700 PRN PRN Reason: anxiety/restlessness Last Admin: 09/01/21 18:06 Dose: 25 mg Documented by: MAITE Senna (Sennosides 8.6 Mg Tablet) 8.6 mg PO DAILY [facility] Last Admin: 09/04/21 09:26 Dose: 8.6 mg Documented by: SCOTT Trazodone HCl (Trazodone Hcl 50 Mg Tablet) 50 mg PO BEDTIME [facility] Last Admin: 09/03/21 20:43 Dose: 50 mg Documented by: CLARENCE Labs CBC & Chem 7: 08/20/21 06:16 08/28/21 06:06 Assessment and Plan (1) COVID-19 virus infection: Status: Acute (2) Dementia with behavioral disturbance: Status: Acute Plan 75 yo M who presented to the ED on 05/23/21 for AMS and failure to thrive. He was initially going to be placed at a facility, but on 05/29 was noted to have cough and a CXR revealed a new R base infiltrate concerning for aspiration pneumonia; has completed Abx course and now awaiting placement, received COVID vaccine developed symptomatic Covid-19 infection 08/17/21 without hypoxia Covid-19 infection resolved dementia with behavioral disturbances Use Seroquel as needed, redirection No behavioral issues noted in last several days, patient has no capacity, continue current psych meds aspiration pneumonia - no recurrent episode,completed treatment - continue nectar thick and ground/mech [NDD2] diet suspected scabies - treated with permethrin x 2 doses, no new rash noted stage 2 pressure ucler (L heel / M medial heel) and stage I bilateral buttock- present on admission - continue wound care - foam dressing to heel, continue barrier cream, + air loss bed + high-protein diet (on supplements) dispo - awaiting LTC placement Quality Stroke Does the patient have a stroke diagnosis?: No VTE Prior VTE?: No VTE Risk Level:: Medical - moderate - high VTE Device Contraindication: N/A - Device Ordered VTE Drug Contraindication: N/A - Med Ordered
[2021-09-04 16:00] VITALS: BP 140/63; PULSE 64; RESP 18; TEMP 36.9; O2SAT 97
[2021-09-04] MEDS: traZODone HCL 50 MG TABLET PO (19:56)
[2021-09-04] MEDS: OLANZapine 5 MG TABLET PO (19:56)
[2021-09-04 23:34] VITALS: BP 133/61; PULSE 60; RESP 18; TEMP 36.4; O2SAT 94
[2021-09-05 08:00] VITALS: BP 103/52; PULSE 65; RESP 18; TEMP 36.2; O2SAT 99
[2021-09-05] MEDS: Heparin Sodium,Porcine 5,000 UNIT/ML VIAL 5000 UNIT SUBCUT ×2 (09:54→22:36)
[2021-09-05] MEDS: Ascorbic Acid 500 MG TABLET PO (09:55)
[2021-09-05] MEDS: Sennosides 8.6 MG TABLET PO (09:55)
--- NOTE | 2021-09-05 11:21 | HO.PM.IMPN ---
Subjective Subjective Date of Service: 09/05/21 Interval History: laying in the bed, looks comfortable not in distress No reported other overnight events. Systemic review: No fever, chills or weakness No chest pain, palpitation No shortness of breath or coughing No abdominal pain, nausea or vomiting Physical Exam Vital Signs: Vital Signs: Last Vital Signs Temp 97.2 F 09/05/21 08:00 Pulse 65 09/05/21 08:00 Resp 18 09/05/21 08:00 BP 103/52 L 09/05/21 08:00 Pulse Ox 99 09/05/21 08:00 BMI result Body Mass Index 22.1 Const: Other: Constitutional : sleepy, disoriented at baseline not in distress Neck : Normal inspection, Supple Respiratory : Chest moving bilaterally, no respiratory distress Neurological : Alert & disoriented, No focal deficit Objective Data Active Medications Acetaminophen (Acetaminophen 325 Mg Tablet) 650 mg PO Q4H PRN PRN Reason: mild pain Last Admin: 08/28/21 08:29 Dose: 650 mg Documented by: MAITE Ascorbic Acid (Ascorbic Acid 500 Mg Tablet) 500 mg PO DAILY [facility] Last Admin: 09/05/21 09:55 Dose: 500 mg Documented by: SCOTT Guaifenesin/Dextromethorphan (Guaifenesin Dm 100/10/5 Ml 5 Ml Syrup) 10 ml PO Q6H PRN PRN Reason: cough Heparin Sodium (Porcine) (Heparin Sodium,Porcine 5,000 Unit/Ml Vial) 5,000 unit SUBCUT Q12H [facility] Last Admin: 09/05/21 09:54 Dose: 5,000 unit Documented by: SCOTT Hydroxyzine HCl (Hydroxyzine Hcl 25 Mg Tablet) 25 mg PO Q6H PRN PRN Reason: agitation Last Admin: 09/02/21 08:31 Dose: 25 mg Documented by: MAITE Olanzapine (Olanzapine 5 Mg Tablet) 5 mg PO BEDTIME [facility] Last Admin: 09/04/21 19:56 Dose: 5 mg Documented by: DEMI Quetiapine Fumarate (Quetiapine Fumarate 25 Mg Tablet) 25 mg PO DAILY@1700 PRN PRN Reason: anxiety/restlessness Last Admin: 09/01/21 18:06 Dose: 25 mg Documented by: MAITE Senna (Sennosides 8.6 Mg Tablet) 8.6 mg PO DAILY [facility] Last Admin: 09/05/21 09:55 Dose: 8.6 mg Documented by: SCOTT Trazodone HCl (Trazodone Hcl 50 Mg Tablet) 50 mg PO BEDTIME [facility] Last Admin: 09/04/21 19:56 Dose: 50 mg Documented by: DEMI Labs CBC & Chem 7: 08/20/21 06:16 08/28/21 06:06 Assessment and Plan (1) Dementia with behavioral disturbance: Status: Acute Plan 75 yo M who presented to the ED on 05/23/21 for AMS and failure to thrive. He was initially going to be placed at a facility, but on 05/29 was noted to have cough and a CXR revealed a new R base infiltrate concerning for aspiration pneumonia; has completed Abx course and now awaiting placement, received COVID vaccine developed symptomatic Covid-19 infection 08/17/21 without hypoxia Covid-19 infection resolved dementia with behavioral disturbances Use Seroquel as needed, redirection No behavioral issues noted in last several days, patient has no capacity, continue current psych meds aspiration pneumonia no recurrent episode,completed treatment continue nectar thick and ground/mech [NDD2] diet suspected scabies treated with permethrin x 2 doses, no new rash noted stage 2 pressure ucler (L heel / M medial heel) and stage I bilateral buttock- present on admission continue wound care foam dressing to heel, continue barrier cream, + air loss bed + high-protein diet (on supplements) dispo awaiting LTC placement Quality Stroke Does the patient have a stroke diagnosis?: No VTE Prior VTE?: No VTE Risk Level:: Medical - moderate - high VTE Device Contraindication: N/A - Device Ordered VTE Drug Contraindication: N/A - Med Ordered
[2021-09-05 17:58] VITALS: BP 127/59; PULSE 66; RESP 16; TEMP 36.2; O2SAT 97
[2021-09-05] MEDS: OLANZapine 5 MG TABLET PO (22:36)
[2021-09-05] MEDS: traZODone HCL 50 MG TABLET PO (22:36)
[2021-09-05 23:24] VITALS: BP 106/47; PULSE 85; RESP 17; TEMP 37.1; O2SAT 94
[2021-09-06 07:33] VITALS: BP 142/68; PULSE 42; RESP 16; TEMP 37.2; O2SAT 98
--- NOTE | 2021-09-06 09:50 | P.PNIM_ITS ---
Subjective Subjective Date of Service: 09/06/21 Interval History: laying in the bed, looks comfortable not in distress Noted to have bradycardia overnight No reported other overnight events. Systemic review: No fever, chills or weakness No chest pain, palpitation No shortness of breath or coughing No abdominal pain, nausea or vomiting Physical Exam Vital Signs: Vital Signs: Last Vital Signs Temp 99.0 F 09/06/21 07:33 Pulse 42 L 09/06/21 07:33 Resp 16 09/06/21 07:33 BP 142/68 H 09/06/21 07:33 Pulse Ox 98 09/06/21 07:33 BMI result Body Mass Index 22.1 Const: Other: Constitutional : sleepy, disoriented at baseline not in distress Neck : Normal inspection, Supple Respiratory : Chest moving bilaterally, no respiratory distress Neurological : Alert & disoriented, No focal deficit Objective Data Active Medications Acetaminophen (Acetaminophen 325 Mg Tablet) 650 mg PO Q4H PRN PRN Reason: mild pain Last Admin: 08/28/21 08:29 Dose: 650 mg Documented by: MAITE Ascorbic Acid (Ascorbic Acid 500 Mg Tablet) 500 mg PO DAILY [facility] Last Admin: 09/05/21 09:55 Dose: 500 mg Documented by: SCOTT Guaifenesin/Dextromethorphan (Guaifenesin Dm 100/10/5 Ml 5 Ml Syrup) 10 ml PO Q6H PRN PRN Reason: cough Heparin Sodium (Porcine) (Heparin Sodium,Porcine 5,000 Unit/Ml Vial) 5,000 unit SUBCUT Q12H [facility] Last Admin: 09/05/21 22:36 Dose: 5,000 unit Documented by: DEMI Hydroxyzine HCl (Hydroxyzine Hcl 25 Mg Tablet) 25 mg PO Q6H PRN PRN Reason: agitation Last Admin: 09/02/21 08:31 Dose: 25 mg Documented by: MAITE Olanzapine (Olanzapine 5 Mg Tablet) 5 mg PO BEDTIME [facility] Last Admin: 09/05/21 22:36 Dose: 5 mg Documented by: DEMI Quetiapine Fumarate (Quetiapine Fumarate 25 Mg Tablet) 25 mg PO DAILY@1700 PRN PRN Reason: anxiety/restlessness Last Admin: 09/01/21 18:06 Dose: 25 mg Documented by: HO.NGENOAL Senna (Sennosides 8.6 Mg Tablet) 8.6 mg PO DAILY [facility] Last Admin: 09/05/21 09:55 Dose: 8.6 mg Documented by: SCOTT Trazodone HCl (Trazodone Hcl 50 Mg Tablet) 50 mg PO BEDTIME [facility] Last Admin: 09/05/21 22:36 Dose: 50 mg Documented by: DEMI Labs CBC & Chem 7: 08/20/21 06:16 08/28/21 06:06 Assessment and Plan (1) Dementia with behavioral disturbance: Status: Acute Plan 75 yo M who presented to the ED on 05/23/21 for AMS and failure to thrive. He was initially going to be placed at a facility, but on 05/29 was noted to have cough and a CXR revealed a new R base infiltrate concerning for aspiration pneumonia; has completed Abx course and now awaiting placement, received COVID vaccine developed symptomatic Covid-19 infection 08/17/21 without hypoxia Covid-19 infection resolved dementia with behavioral disturbances Use Seroquel as needed, redirection No behavioral issues noted in last several days, patient has no capacity, continue current psych meds aspiration pneumonia no recurrent episode,completed treatment continue nectar thick and ground/mech [NDD2] diet suspected scabies treated with permethrin x 2 doses, no new rash noted stage 2 pressure ucler (L heel / M medial heel) and stage I bilateral buttock- present on admission continue wound care foam dressing to heel, continue barrier cream, + air loss bed + high-protein diet (on supplements) dispo awaiting LTC placement Quality Stroke Does the patient have a stroke diagnosis?: No VTE Prior VTE?: No VTE Risk Level:: Medical - moderate - high VTE Device Contraindication: N/A - Device Ordered VTE Drug Contraindication: N/A - Med Ordered
[2021-09-06] MEDS: Ascorbic Acid 500 MG TABLET PO (10:07)
[2021-09-06] MEDS: Sennosides 8.6 MG TABLET PO (10:07)
--- NOTE | 2021-09-06 14:23 | MHC.CM.PN ---
NURSE CARE MANGER NT ELECTRONIC MEDICAL RECORD REVIEWED ALONG WITH CASE DISCUSSED WITH STAFF NURSE AND ON MULTIPLE DISCIPLIANRY ROUNDS PER DOCUMENTATION (PATIENT DIAGNOSIS DEMENTIA WITH BEHAVIORAL DISTURBANCES AMS AND FAILURE TO THRIEVE (USE SEROQUEL NEEDED AND REDIRECTION (PER DOCUMENTAITON NO BEHAVIORAL ISSUES OVER THE LAST SEVERAL DAYS. STAGE 2 PRESSURE ULCER (LEFT HEEL/MEDIAL HEEL STAGE Q BILATERAL BUTTOCK PRESENT ON ADMISSION WOUND CARE CONTINOUS MONITORING FOAM DRSSING TO HEEL, CONTINUE BARRIER CREAM AIR LOSS BED HIGH PROTEIN DIET AND CONTINUE SUPPLEMENTS) STILL AWAITING SECURING ALL FINANCIAL ISSUES THEN APPLY FOR [employer] SUBM,ITT IT AND THEN HAVE COMPLETED BEFORE [facility] WILL ACCEPT FOR LONGTERM CARE
[2021-09-06 15:23] VITALS: BP 119/57; PULSE 68; RESP 16; TEMP 36.4; O2SAT 96
[2021-09-06] MEDS: traZODone HCL 50 MG TABLET PO (20:20)
[2021-09-06] MEDS: Heparin Sodium,Porcine 5,000 UNIT/ML VIAL 5000 UNIT SUBCUT (20:21)
[2021-09-06] MEDS: OLANZapine 5 MG TABLET PO (20:21)
[2021-09-06 23:36] VITALS: BP 140/70; PULSE 65; RESP 17; TEMP 36.1; O2SAT 97
[2021-09-07 06:14] LABS: Hematocrit 35.4 % (42.0-52.0); Hemoglobin 11.2 g/dl (14.0-18.0); Mean Corpuscular HGB Conc 31.6 g/dl (31.0-36.0); Mean Corpuscular Hemoglobin 29.8 pg (27.0-33.0); Mean Corpuscular Volume 94.1 fL (80.0-98.0); Platelet Count 175 X10*3/uL (160-400); Red Blood Count 3.76 X10*6/uL (4.60-5.80); Red Cell Distribution Width 14.2 % (11.0-16.0); White Blood Count 4.9 X10*3/uL (4.8-10.8)
[2021-09-07 06:38] LABS: Anion Gap 10 (12-20); Blood Urea Nitrogen 31 mg/dL (9-16); Carbon Dioxide 29 mmol/L (22-29); Chloride 106 mmol/L (96-108); Creatinine Clr Calc Pharmacy 53.8; Estimated Glomerular Filt Rate > 60; Glucose Random 97 mg/dL (60-115); Potassium 4.2 mmol/L (3.3-5.1); Sodium 141 mmol/L (135-145)
[2021-09-07 08:00] VITALS: RESP 17
[2021-09-07] MEDS: Sennosides 8.6 MG TABLET PO (08:48)
[2021-09-07] MEDS: Heparin Sodium,Porcine 5,000 UNIT/ML VIAL 5000 UNIT SUBCUT ×2 (08:48→22:03)
[2021-09-07] MEDS: Ascorbic Acid 500 MG TABLET PO (08:48)
--- NOTE | 2021-09-07 11:15 | P.PNIM_ITS ---
Subjective Subjective Date of Service: 09/07/21 Interval History: laying in the bed, looks comfortable not in distress Sitting in his bed, his on the other bed No reported other overnight events. Systemic review: No fever, chills or weakness No chest pain, palpitation No shortness of breath or coughing No abdominal pain, nausea or vomiting Physical Exam Vital Signs: Vital Signs: Last Vital Signs Temp 97.0 F 09/06/21 23:36 Pulse 65 09/06/21 23:36 Resp 17 09/07/21 08:00 BP 140/70 H 09/06/21 23:36 Pulse Ox 97 09/06/21 23:36 BMI result Body Mass Index 22.1 Const: Other: Constitutional : sleepy, disoriented at baseline not in distress Neck : Normal inspection, Supple Respiratory : Chest moving bilaterally, no respiratory distress Neurological : Alert & disoriented, No focal deficit Objective Data Active Medications Acetaminophen (Acetaminophen 325 Mg Tablet) 650 mg PO Q4H PRN PRN Reason: mild pain Last Admin: 08/28/21 08:29 Dose: 650 mg Documented by: MAITE Ascorbic Acid (Ascorbic Acid 500 Mg Tablet) 500 mg PO DAILY [facility] Last Admin: 09/07/21 08:48 Dose: 500 mg Documented by: FRANCIE Guaifenesin/Dextromethorphan (Guaifenesin Dm 100/10/5 Ml 5 Ml Syrup) 10 ml PO Q6H PRN PRN Reason: cough Heparin Sodium (Porcine) (Heparin Sodium,Porcine 5,000 Unit/Ml Vial) 5,000 unit SUBCUT Q12H [facility] Last Admin: 09/07/21 08:48 Dose: 5,000 unit Documented by: FRANCIE Hydroxyzine HCl (Hydroxyzine Hcl 25 Mg Tablet) 25 mg PO Q6H PRN PRN Reason: agitation Last Admin: 09/02/21 08:31 Dose: 25 mg Documented by: MAITE Olanzapine (Olanzapine 5 Mg Tablet) 5 mg PO BEDTIME [facility] Last Admin: 09/06/21 20:21 Dose: 5 mg Documented by: MELODY Quetiapine Fumarate (Quetiapine Fumarate 25 Mg Tablet) 25 mg PO DAILY@1700 PRN PRN Reason: anxiety/restlessness Last Admin: 09/01/21 18:06 Dose: 25 mg Documented by: MAITE Senna (Sennosides 8.6 Mg Tablet) 8.6 mg PO DAILY [facility] Last Admin: 09/07/21 08:48 Dose: 8.6 mg Documented by: FRANCIE Trazodone HCl (Trazodone Hcl 50 Mg Tablet) 50 mg PO BEDTIME [facility] Last Admin: 09/06/21 20:20 Dose: 50 mg Documented by: MELODY Labs CBC & Chem 7: 09/07/21 05:36 09/07/21 05:36 Labs: Laboratory Results - last 24 hr 09/07/21 09/07/21 05:36 05:36 MCV 94.1 MCH 29.8 MCHC 31.6 RDW 14.2 Plt Count 175 MPV 12.0 Absolute Nucleated RBC 0.000 Nucleated RBC % (auto) 0.0 Anion Gap 10 L Estim Creat Clear Calc 53.8 Estimated GFR > 60 Random Glucose 97 Calcium 9.0 Assessment and Plan (1) Dementia with behavioral disturbance: Status: Acute Plan 75 yo M who presented to the ED on 05/23/21 for AMS and failure to thrive. He was initially going to be placed at a facility, but on 05/29 was noted to have cough and a CXR revealed a new R base infiltrate concerning for aspiration pneumonia; has completed Abx course and now awaiting placement, received COVID vaccine developed symptomatic Covid-19 infection 08/17/21 without hypoxia Covid-19 infection resolved dementia with behavioral disturbances Use Seroquel as needed, redirection No behavioral issues noted in last several days, patient has no capacity, contin ue current psych meds aspiration pneumonia no recurrent episode,completed treatment continue nectar thick and ground/mech [NDD2] diet suspected scabies treated with permethrin x 2 doses, no new rash noted stage 2 pressure ucler (L heel / M medial heel) and stage I bilateral buttock- present on admission continue wound care foam dressing to heel, continue barrier cream, + air loss bed + high-protein diet (on supplements) dispo awaiting LTC placement Quality Stroke Does the patient have a stroke diagnosis?: No VTE Prior VTE?: No VTE Risk Level:: Medical - moderate - high VTE Device Contraindication: N/A - Device Ordered VTE Drug Contraindication: N/A - Med Ordered
[2021-09-07 16:00] VITALS: BP 129/58; PULSE 78; RESP 18; TEMP 37.2; O2SAT 93
[2021-09-07] MEDS: OLANZapine 5 MG TABLET PO (22:03)
[2021-09-07] MEDS: traZODone HCL 50 MG TABLET PO (22:03)
[2021-09-07 23:15] VITALS: BP 143/66; PULSE 65; RESP 18; TEMP 37.1; O2SAT 96
[2021-09-08 08:00] VITALS: BP 118/67; PULSE 73; RESP 20; TEMP 36.3; O2SAT 98
[2021-09-08] MEDS: Heparin Sodium,Porcine 5,000 UNIT/ML VIAL 5000 UNIT SUBCUT ×2 (09:35→20:53)
[2021-09-08] MEDS: Ascorbic Acid 500 MG TABLET PO (09:36)
[2021-09-08] MEDS: Sennosides 8.6 MG TABLET PO (09:36)
--- NOTE | 2021-09-08 11:58 | P.PNIM_ITS ---
Subjective Subjective Date of Service: 09/08/21 Interval History: laying in the bed, looks comfortable not in distress Sitting in his bed, his on the other bed No reported other overnight events. Systemic review: No fever, chills or weakness No chest pain, palpitation No shortness of breath or coughing No abdominal pain, nausea or vomiting Physical Exam Vital Signs: Vital Signs: Last Vital Signs Temp 97.4 F 09/08/21 08:00 Pulse 73 09/08/21 08:00 Resp 20 09/08/21 08:00 BP 118/67 09/08/21 08:00 Pulse Ox 98 09/08/21 08:00 BMI result Body Mass Index 22.1 Const: Other: Constitutional : sleepy, disoriented at baseline not in distress Neck : Normal inspection, Supple Respiratory : Chest moving bilaterally, no respiratory distress Neurological : Alert & disoriented, No focal deficit Objective Data Active Medications Acetaminophen (Acetaminophen 325 Mg Tablet) 650 mg PO Q4H PRN PRN Reason: mild pain Last Admin: 08/28/21 08:29 Dose: 650 mg Documented by: MAITE Ascorbic Acid (Ascorbic Acid 500 Mg Tablet) 500 mg PO DAILY [facility] Last Admin: 09/08/21 09:36 Dose: 500 mg Documented by: DANITA Guaifenesin/Dextromethorphan (Guaifenesin Dm 100/10/5 Ml 5 Ml Syrup) 10 ml PO Q6H PRN PRN Reason: cough Heparin Sodium (Porcine) (Heparin Sodium,Porcine 5,000 Unit/Ml Vial) 5,000 unit SUBCUT Q12H [facility] Last Admin: 09/08/21 09:35 Dose: 5,000 unit Documented by: DANITA Hydroxyzine HCl (Hydroxyzine Hcl 25 Mg Tablet) 25 mg PO Q6H PRN PRN Reason: agitation Last Admin: 09/02/21 08:31 Dose: 25 mg Documented by: MAITE Olanzapine (Olanzapine 5 Mg Tablet) 5 mg PO BEDTIME [facility] Last Admin: 09/07/21 22:03 Dose: 5 mg Documented by: CLARENCE Quetiapine Fumarate (Quetiapine Fumarate 25 Mg Tablet) 25 mg PO DAILY@1700 PRN PRN Reason: anxiety/restlessness Last Admin: 09/01/21 18:06 Dose: 25 mg Documented by: HO.NGENOAL Senna (Sennosides 8.6 Mg Tablet) 8.6 mg PO DAILY [facility] Last Admin: 09/08/21 09:36 Dose: 8.6 mg Documented by: DANITA Trazodone HCl (Trazodone Hcl 50 Mg Tablet) 50 mg PO BEDTIME [facility] Last Admin: 09/07/21 22:03 Dose: 50 mg Documented by: CLARENCE Labs CBC & Chem 7: 09/07/21 05:36 09/07/21 05:36 Assessment and Plan (1) Dementia with behavioral disturbance: Status: Acute Plan 75 yo M who presented to the ED on 05/23/21 for AMS and failure to thrive. He was initially going to be placed at a facility, but on 05/29 was noted to have cough and a CXR revealed a new R base infiltrate concerning for aspiration pneumonia; has completed Abx course and now awaiting placement, received COVID vaccine developed symptomatic Covid-19 infection 08/17/21 without hypoxia Covid-19 infection resolved dementia with behavioral disturbances Use Seroquel as needed, redirection No behavioral issues noted in last several days, patient has no capacity, continue current psych meds aspiration pneumonia no recurrent episode,completed treatment continue nectar thick and ground/mech [NDD2] diet suspected scabies treated with permethrin x 2 doses, no new rash noted stage 2 pressure ucler (L heel / M medial heel) and stage I bilateral buttock- present on admission continue wound care foam dressing to heel, continue barrier cream, + air loss bed + high-protein diet (on supplements) dispo awaiting LTC placement Quality Stroke Does the patient have a stroke diagnosis?: No VTE Prior VTE?: No VTE Risk Level:: Medical - moderate - high VTE Device Contraindication: N/A - Device Ordered VTE Drug Contraindication: N/A - Med Ordered
[2021-09-08 15:48] VITALS: BP 107/64; PULSE 82; RESP 18; TEMP 36.6; O2SAT 95
[2021-09-08] MEDS: OLANZapine 5 MG TABLET PO (20:52)
[2021-09-08] MEDS: traZODone HCL 50 MG TABLET PO (20:52)
[2021-09-08 23:59] VITALS: BP 146/73; PULSE 69; RESP 18; TEMP 36.2; O2SAT 95
[2021-09-09 07:54] VITALS: BP 155/82; PULSE 66; RESP 18; TEMP 36.4; O2SAT 98
--- NOTE | 2021-09-09 10:10 | HO.PM.IMPN ---
Subjective Subjective Date of Service: 09/09/21 Interval History: laying in the bed, looks comfortable not in distress Sitting in his bed No reported other overnight events. Systemic review: No fever, chills or weakness No chest pain, palpitation No shortness of breath or coughing No abdominal pain, nausea or vomiting Physical Exam Vital Signs: Vital Signs: Last Vital Signs Temp 97.5 F 09/09/21 07:54 Pulse 66 09/09/21 07:54 Resp 18 09/09/21 07:54 BP 155/82 H 09/09/21 07:54 Pulse Ox 98 09/09/21 07:54 BMI result Body Mass Index 22.1 Const: Other: Constitutional : sleepy, disoriented at baseline not in distress Neck : Normal inspection, Supple Respiratory : Chest moving bilaterally, no respiratory distress Neurological : Alert & disoriented, No focal deficit Objective Data Active Medications Acetaminophen (Acetaminophen 325 Mg Tablet) 650 mg PO Q4H PRN PRN Reason: mild pain Last Admin: 08/28/21 08:29 Dose: 650 mg Documented by: MAITE Ascorbic Acid (Ascorbic Acid 500 Mg Tablet) 500 mg PO DAILY [facility] Last Admin: 09/08/21 09:36 Dose: 500 mg Documented by: DANITA Guaifenesin/Dextromethorphan (Guaifenesin Dm 100/10/5 Ml 5 Ml Syrup) 10 ml PO Q6H PRN PRN Reason: cough Heparin Sodium (Porcine) (Heparin Sodium,Porcine 5,000 Unit/Ml Vial) 5,000 unit SUBCUT Q12H [facility] Last Admin: 09/08/21 20:53 Dose: 5,000 unit Documented by: CLARENCE Hydroxyzine HCl (Hydroxyzine Hcl 25 Mg Tablet) 25 mg PO Q6H PRN PRN Reason: agitation Last Admin: 09/02/21 08:31 Dose: 25 mg Documented by: MAITE Olanzapine (Olanzapine 5 Mg Tablet) 5 mg PO BEDTIME [facility] Last Admin: 09/08/21 20:52 Dose: 5 mg Documented by: CLARENCE Quetiapine Fumarate (Quetiapine Fumarate 25 Mg Tablet) 25 mg PO DAILY@1700 PRN PRN Reason: anxiety/restlessness Last Admin: 09/01/21 18:06 Dose: 25 mg Documented by: HO.NGENOAL Senna (Sennosides 8.6 Mg Tablet) 8.6 mg PO DAILY [facility] Last Admin: 09/08/21 09:36 Dose: 8.6 mg Documented by: DANITA Trazodone HCl (Trazodone Hcl 50 Mg Tablet) 50 mg PO BEDTIME [facility] Last Admin: 09/08/21 20:52 Dose: 50 mg Documented by: CLARENCE Labs CBC & Chem 7: 09/07/21 05:36 09/07/21 05:36 Assessment and Plan (1) Dementia with behavioral disturbance: Status: Acute Plan 75 yo M who presented to the ED on 05/23/21 for AMS and failure to thrive. He was initially going to be placed at a facility, but on 05/29 was noted to have cough and a CXR revealed a new R base infiltrate concerning for aspiration pneumonia; has completed Abx course and now awaiting placement, received COVID vaccine developed symptomatic Covid-19 infection 08/17/21 without hypoxia Covid-19 infection resolved dementia with behavioral disturbances Use Seroquel as needed, redirection No behavioral issues noted in last several days, patient has no capacity, continue current psych meds aspiration pneumonia no recurrent episode,completed treatment continue nectar thick and ground/mech [NDD2] diet suspected scabies treated with permethrin x 2 doses, no new rash noted stage 2 pressure ucler (L heel / M medial heel) and stage I bilateral buttock- present on admission continue wound care foam dressing to heel, continue barrier cream, + air loss bed + high-protein diet (on supplements) dispo awaiting LTC placement Quality Stroke Does the patient have a stroke diagnosis?: No VTE Prior VTE?: No VTE Risk Level:: Medical - moderate - high VTE Device Contraindication: N/A - Device Ordered VTE Drug Contraindication: N/A - Med Ordered
[2021-09-09] MEDS: Ascorbic Acid 500 MG TABLET PO (10:28)
[2021-09-09] MEDS: Heparin Sodium,Porcine 5,000 UNIT/ML VIAL 5000 UNIT SUBCUT ×2 (10:28→20:33)
[2021-09-09] MEDS: Sennosides 8.6 MG TABLET PO (10:28)
[2021-09-09 15:17] VITALS: BP 115/63; PULSE 63; RESP 18; TEMP 36.1; O2SAT 97
[2021-09-09 19:17] VITALS: BP 140/63; PULSE 72; RESP 18; TEMP 36.1; O2SAT 97
[2021-09-09] MEDS: OLANZapine 5 MG TABLET PO (20:33)
[2021-09-09] MEDS: hydrOXYzine HCL 25 MG TABLET PO (20:33)
[2021-09-09] MEDS: traZODone HCL 50 MG TABLET PO (20:33)
[2021-09-09 23:42] VITALS: BP 108/56; PULSE 52; RESP 16; TEMP 37.1; O2SAT 97
[2021-09-10 07:33] VITALS: BP 139/81; PULSE 57; RESP 20; TEMP 36.8; O2SAT 96
[2021-09-10] MEDS: Ascorbic Acid 500 MG TABLET PO (09:10)
[2021-09-10] MEDS: Sennosides 8.6 MG TABLET PO (09:10)
[2021-09-10] MEDS: Heparin Sodium,Porcine 5,000 UNIT/ML VIAL 5000 UNIT SUBCUT ×2 (09:14→21:10)
--- NOTE | 2021-09-10 10:37 | P.PNIM_ITS ---
Subjective Subjective Date of Service: 09/10/21 Interval History: laying in the bed, looks comfortable not in distress No reported other overnight events. Systemic review: No fever, chills or weakness No chest pain, palpitation No shortness of breath or coughing No abdominal pain, nausea or vomiting Physical Exam Vital Signs: Vital Signs: Last Vital Signs Temp 98.3 F 09/10/21 07:33 Pulse 57 09/10/21 07:33 Resp 20 09/10/21 07:33 BP 139/81 09/10/21 07:33 Pulse Ox 96 09/10/21 07:33 BMI result Body Mass Index 22.1 Const: Other: Constitutional : sleepy, disoriented at baseline not in distress Neck : Normal inspection, Supple Respiratory : Chest moving bilaterally, no respiratory distress Neurological : Alert & disoriented, No focal deficit Objective Data Active Medications Acetaminophen (Acetaminophen 325 Mg Tablet) 650 mg PO Q4H PRN PRN Reason: mild pain Last Admin: 08/28/21 08:29 Dose: 650 mg Documented by: MAITE Ascorbic Acid (Ascorbic Acid 500 Mg Tablet) 500 mg PO DAILY [facility] Last Admin: 09/10/21 09:10 Dose: 500 mg Documented by: GOLDEN Guaifenesin/Dextromethorphan (Guaifenesin Dm 100/10/5 Ml 5 Ml Syrup) 10 ml PO Q6H PRN PRN Reason: cough Heparin Sodium (Porcine) (Heparin Sodium,Porcine 5,000 Unit/Ml Vial) 5,000 unit SUBCUT Q12H [facility] Last Admin: 09/10/21 09:14 Dose: 5,000 unit Documented by: GOLDEN Hydroxyzine HCl (Hydroxyzine Hcl 25 Mg Tablet) 25 mg PO Q6H PRN PRN Reason: agitation Last Admin: 09/09/21 20:33 Dose: 25 mg Documented by: CESAR Olanzapine (Olanzapine 5 Mg Tablet) 5 mg PO BEDTIME [facility] Last Admin: 09/09/21 20:33 Dose: 5 mg Documented by: CESAR Quetiapine Fumarate (Quetiapine Fumarate 25 Mg Tablet) 25 mg PO DAILY@1700 PRN PRN Reason: anxiety/restlessness Last Admin: 09/01/21 18:06 Dose: 25 mg Documented by: MAITE Senna (Sennosides 8.6 Mg Tablet) 8.6 mg PO DAILY [facility] Last Admin: 09/10/21 09:10 Dose: 8.6 mg Documented by: GOLDEN Trazodone HCl (Trazodone Hcl 50 Mg Tablet) 50 mg PO BEDTIME [facility] Last Admin: 09/09/21 20:33 Dose: 50 mg Documented by: CESAR Labs CBC & Chem 7: 09/07/21 05:36 09/07/21 05:36 Assessment and Plan (1) Dementia with behavioral disturbance: Status: Acute Plan 75 yo M who presented to the ED on 05/23/21 for AMS and failure to thrive. He was initially going to be placed at a facility, but on 05/29 was noted to have cough and a CXR revealed a new R base infiltrate concerning for aspiration pneumonia; has completed Abx course and now awaiting placement, received COVID vaccine developed symptomatic Covid-19 infection 08/17/21 without hypoxia Covid-19 infection resolved dementia with behavioral disturbances Use Seroquel as needed, redirection No behavioral issues noted in last several days, patient has no capacity, continue current psych meds aspiration pneumonia no recurrent episode,completed treatment continue nectar thick and ground/mech [NDD2] diet suspected scabies treated with permethrin x 2 doses, no new rash noted stage 2 pressure ucler (L heel / M medial heel) and stage I bilateral buttock- present on admission continue wound care foam dressing to heel, continue barrier cream, + air loss bed + high-protein diet (on supplements) dispo awaiting LTC placement Quality Stroke Does the patient have a stroke diagnosis?: No VTE Prior VTE?: No VTE Risk Level:: Medical - moderate - high VTE Device Contraindication: N/A - Device Ordered VTE Drug Contraindication: N/A - Med Ordered
[2021-09-10 16:00] VITALS: BP 127/60; PULSE 72; RESP 17; TEMP 36.2; O2SAT 98
[2021-09-10] MEDS: traZODone HCL 50 MG TABLET PO (21:11)
[2021-09-10] MEDS: hydrOXYzine HCL 25 MG TABLET PO (21:11)
[2021-09-10] MEDS: OLANZapine 5 MG TABLET PO (21:11)
[2021-09-11] VITALS: BP 131/71; PULSE 86; RESP 18; TEMP 36.6; O2SAT 97
[2021-09-11 07:19] VITALS: BP 98/53; PULSE 44; RESP 18; TEMP 36.5; O2SAT 98
[2021-09-11] MEDS: Ascorbic Acid 500 MG TABLET PO (08:59)
[2021-09-11] MEDS: Heparin Sodium,Porcine 5,000 UNIT/ML VIAL 5000 UNIT SUBCUT ×2 (08:59→19:53)
[2021-09-11] MEDS: Sennosides 8.6 MG TABLET PO (08:59)
--- NOTE | 2021-09-11 11:04 | HO.PM.IMPN ---
Subjective Subjective Date of Service: 09/11/21 Interval History: laying in the bed, looks comfortable not in distress No reported other overnight events. Systemic review: No fever, chills or weakness No chest pain, palpitation No shortness of breath or coughing No abdominal pain, nausea or vomiting Physical Exam Vital Signs: Vital Signs: Last Vital Signs Temp 97.7 F 09/11/21 07:19 Pulse 44 L 09/11/21 07:19 Resp 18 09/11/21 07:19 BP 98/53 L 09/11/21 07:19 Pulse Ox 98 09/11/21 07:19 BMI result Body Mass Index 22.1 Const: Other: Constitutional : sleepy, disoriented at baseline not in distress Neck : Normal inspection, Supple Respiratory : Chest moving bilaterally, no respiratory distress Neurological : Alert & disoriented, No focal deficit Objective Data Active Medications Acetaminophen (Acetaminophen 325 Mg Tablet) 650 mg PO Q4H PRN PRN Reason: mild pain Last Admin: 08/28/21 08:29 Dose: 650 mg Documented by: MAITE Ascorbic Acid (Ascorbic Acid 500 Mg Tablet) 500 mg PO DAILY [facility] Last Admin: 09/11/21 08:59 Dose: 500 mg Documented by: GOLDEN Guaifenesin/Dextromethorphan (Guaifenesin Dm 100/10/5 Ml 5 Ml Syrup) 10 ml PO Q6H PRN PRN Reason: cough Heparin Sodium (Porcine) (Heparin Sodium,Porcine 5,000 Unit/Ml Vial) 5,000 unit SUBCUT Q12H [facility] Last Admin: 09/11/21 08:59 Dose: 5,000 unit Documented by: GOLDEN Hydroxyzine HCl (Hydroxyzine Hcl 25 Mg Tablet) 25 mg PO Q6H PRN PRN Reason: agitation Last Admin: 09/10/21 21:11 Dose: 25 mg Documented by: JOSIAH Olanzapine (Olanzapine 5 Mg Tablet) 5 mg PO BEDTIME [facility] Last Admin: 09/10/21 21:11 Dose: 5 mg Documented by: JOSIAH Quetiapine Fumarate (Quetiapine Fumarate 25 Mg Tablet) 25 mg PO DAILY@1700 PRN PRN Reason: anxiety/restlessness Last Admin: 09/01/21 18:06 Dose: 25 mg Documented by: MAITE Senna (Sennosides 8.6 Mg Tablet) 8.6 mg PO DAILY [facility] Last Admin: 09/11/21 08:59 Dose: 8.6 mg Documented by: GOLDEN Trazodone HCl (Trazodone Hcl 50 Mg Tablet) 50 mg PO BEDTIME [facility] Last Admin: 09/10/21 21:11 Dose: 50 mg Documented by: JOSIAH Labs CBC & Chem 7: 09/07/21 05:36 09/07/21 05:36 Assessment and Plan (1) Dementia with behavioral disturbance: Status: Acute Plan 75 yo M who presented to the ED on 05/23/21 for AMS and failure to thrive. He was initially going to be placed at a facility, but on 05/29 was noted to have cough and a CXR revealed a new R base infiltrate concerning for aspiration pneumonia; has completed Abx course and now awaiting placement, received COVID vaccine developed symptomatic Covid-19 infection 08/17/21 without hypoxia Covid-19 infection resolved dementia with behavioral disturbances Use Seroquel as needed, redirection No behavioral issues noted in last several days, patient has no capacity, continue current psych meds aspiration pneumonia no recurrent episode,completed treatment continue nectar thick and ground/mech [NDD2] diet suspected scabies treated with permethrin x 2 doses, no new rash noted stage 2 pressure ucler (L heel / M medial heel) and stage I bilateral buttock- present on admission continue wound care foam dressing to heel, continue barrier cream, + air loss bed + high-protein diet (on supplements) dispo awaiting LTC placement Quality Stroke Does the patient have a stroke diagnosis?: No VTE Prior VTE?: No VTE Risk Level:: Medical - moderate - high VTE Device Contraindication: N/A - Device Ordered VTE Drug Contraindication: N/A - Med Ordered
--- NOTE | 2021-09-11 13:04 | MHC.CM.PN ---
NURSE DIGITAL MARKETING SPECIALIST NOT E ELECTRONIC MEDICAL RECORD REVIEWED ALONG WITH CASE DISCUSSED ON MULTIPLE DISCIPLAINRY ROUNDS (CASE DISCUSSED WITH DIRECTOR OF CASE MANAGEMENT) STILL AWAITING COMPLETION OF FINANCIAL RECORD FOR COMPLETION OF THE [facility] . PATIENT HAS RECIVED THE [facility] COVID VACCINATIONS X2 THE LAST ONE BEING 08/06/21PATIENT HAS TEMPORAY GUARDIAN SHIP AND CONSERVATOR SHIP , [employer] TEAM LEADER TO CONTINUE TO FOLLOW
[2021-09-11 15:47] VITALS: BP 133/85; PULSE 60; RESP 15; TEMP 37; O2SAT 97
[2021-09-11] MEDS: OLANZapine 5 MG TABLET PO (19:53)
[2021-09-11] MEDS: traZODone HCL 50 MG TABLET PO (19:53)
[2021-09-11 23:32] VITALS: BP 117/58; PULSE 62; RESP 16; TEMP 36.7; O2SAT 97
[2021-09-12] MEDS: hydrOXYzine HCL 25 MG TABLET PO (03:37)
[2021-09-12] MEDS: Acetaminophen 325 MG TABLET 650 MG PO (03:37)
[2021-09-12 07:22] VITALS: BP 147/69; PULSE 59; RESP 18; TEMP 36.6; O2SAT 95
[2021-09-12] MEDS: Heparin Sodium,Porcine 5,000 UNIT/ML VIAL 5000 UNIT SUBCUT ×2 (09:29→22:26)
--- NOTE | 2021-09-12 11:20 | HO.PM.IMPN ---
Subjective Subjective Date of Service: 09/12/21 Interval History: no complaints Cardiovascular Cardiovascular: Reports no additional cardiovascular complaints Respiratory Respiratory: Reports no additional respiratory complaints Physical Exam Vital Signs: Vital Signs: Last Vital Signs Temp 97.8 F 09/12/21 07:22 Pulse 59 09/12/21 07:22 Resp 18 09/12/21 07:22 BP 147/69 H 09/12/21 07:22 Pulse Ox 95 09/12/21 07:22 BMI result Body Mass Index 22.1 Const Other: Constitutional : sleepy, disoriented at baseline not in distress Neck : Normal inspection, Supple Respiratory :? Chest moving bilaterally, no respiratory distress Neurological : Alert & disoriented, No focal deficit Objective Data Active Medications Acetaminophen (Acetaminophen 325 Mg Tablet) 650 mg PO Q4H PRN PRN Reason: mild pain Last Admin: 09/12/21 03:37 Dose: 650 mg Documented by: MARY Ascorbic Acid (Ascorbic Acid 500 Mg Tablet) 500 mg PO DAILY [facility] Last Admin: 09/12/21 09:35 Dose: Not Given Documented by: AURORA Non-Admin Reason: Patient Refused Guaifenesin/Dextromethorphan (Guaifenesin Dm 100/10/5 Ml 5 Ml Syrup) 10 ml PO Q6H PRN PRN Reason: cough Heparin Sodium (Porcine) (Heparin Sodium,Porcine 5,000 Unit/Ml Vial) 5,000 unit SUBCUT Q12H [facility] Last Admin: 09/12/21 09:29 Dose: 5,000 unit Documented by: AURORA Hydroxyzine HCl (Hydroxyzine Hcl 25 Mg Tablet) 25 mg PO Q6H PRN PRN Reason: agitation Last Admin: 09/12/21 03:37 Dose: 25 mg Documented by: MARY Olanzapine (Olanzapine 5 Mg Tablet) 5 mg PO BEDTIME [facility] Last Admin: 09/11/21 19:53 Dose: 5 mg Documented by: JOSIAH Quetiapine Fumarate (Quetiapine Fumarate 25 Mg Tablet) 25 mg PO DAILY@1700 PRN PRN Reason: anxiety/restlessness Last Admin: 09/01/21 18:06 Dose: 25 mg Documented by: EVIEENOBIB Senna (Sennosides 8.6 Mg Tablet) 8.6 mg PO DAILY [facility] Last Admin: 09/12/21 09:35 Dose: Not Given Documented by: AURORA Non-Admin Reason: Patient Refused Trazodone HCl (Trazodone Hcl 50 Mg Tablet) 50 mg PO BEDTIME [facility] Last Admin: 09/11/21 19:53 Dose: 50 mg Documented by: JOSIAH Labs CBC & Chem 7: 09/07/21 05:36 09/07/21 05:36 Assessment and Plan (1) Dementia with behavioral disturbance: Status: Acute Plan 75 yo M who presented to the ED on 05/23/21 for AMS and failure to thrive. He was initially going to be placed at a facility, but on 05/29 was noted to have cough and a CXR revealed a new R base infiltrate concerning for aspiration pneumonia; has completed Abx course and now awaiting placement, received COVID vaccine developed symptomatic Covid-19 infection 08/17/21 without hypoxia Covid-19 infection resolved dementia with behavioral disturbances Use Seroquel as needed, redirection No behavioral issues noted in last several days, patient has no capacity, continue current psych meds aspiration pneumonia no recurrent episode,completed treatment continue nectar thick and ground/mech [NDD2] diet suspected scabies treated with permethrin x 2 doses, no new rash noted stage 2 pressure ucler (L heel / M medial heel) and stage I bilateral buttock- present on admission continue wound care foam dressing to heel, continue barrier cream, + air loss bed + high-protein diet (on supplements) dispo awaiting LTC placement Quality Stroke Does the patient have a stroke diagnosis?: No VTE Prior VTE?: No VTE Risk Level:: Medical - moderate - high VTE Device Contraindication: N/A - Device Ordered VTE Drug Contraindication: N/A - Med Ordered
--- NOTE | 2021-09-12 13:17 | MHC.CM.PN ---
cm continue to follow for disposition pending [facility] approval
[2021-09-12 15:14] VITALS: BP 116/57; PULSE 65; RESP 18; TEMP 36.8; O2SAT 98
[2021-09-12] MEDS: OLANZapine 5 MG TABLET PO (22:26)
[2021-09-12] MEDS: traZODone HCL 50 MG TABLET PO (22:26)
[2021-09-12 23:26] VITALS: BP 136/64; PULSE 66; RESP 16; TEMP 36.3; O2SAT 97
[2021-09-13 07:51] VITALS: BP 120/56; PULSE 50; RESP 18; TEMP 36.5; O2SAT 96
[2021-09-13] MEDS: Ascorbic Acid 500 MG TABLET PO (08:58)
[2021-09-13] MEDS: Heparin Sodium,Porcine 5,000 UNIT/ML VIAL 5000 UNIT SUBCUT ×2 (08:58→20:12)
[2021-09-13] MEDS: Sennosides 8.6 MG TABLET PO (08:58)
--- NOTE | 2021-09-13 08:59 | HO.PM.IMPN ---
Subjective Subjective Date of Service: 09/13/21 Interval History: no complaints Review of Systems Review of Systems: Yes Unobtainable due to mental condition Physical Exam Vital Signs: Vital Signs: Last Vital Signs Temp 97.7 F 09/13/21 07:51 Pulse 50 09/13/21 07:51 Resp 18 09/13/21 07:51 BP 120/56 L 09/13/21 07:51 Pulse Ox 96 09/13/21 07:51 BMI result Body Mass Index 22.1 Const Other: Constitutional : sleepy, disoriented at baseline not in distress Neck : Normal inspection, Supple Respiratory :? Chest moving bilaterally, no respiratory distress Neurological : Alert & disoriented, No focal deficit Objective Data Active Medications Acetaminophen (Acetaminophen 325 Mg Tablet) 650 mg PO Q4H PRN PRN Reason: mild pain Last Admin: 09/12/21 03:37 Dose: 650 mg Documented by: MARY Ascorbic Acid (Ascorbic Acid 500 Mg Tablet) 500 mg PO DAILY [facility] Last Admin: 09/13/21 08:58 Dose: 500 mg Documented by: AURORA Guaifenesin/Dextromethorphan (Guaifenesin Dm 100/10/5 Ml 5 Ml Syrup) 10 ml PO Q6H PRN PRN Reason: cough Heparin Sodium (Porcine) (Heparin Sodium,Porcine 5,000 Unit/Ml Vial) 5,000 unit SUBCUT Q12H [facility] Last Admin: 09/13/21 08:58 Dose: 5,000 unit Documented by: AURORA Hydroxyzine HCl (Hydroxyzine Hcl 25 Mg Tablet) 25 mg PO Q6H PRN PRN Reason: agitation Last Admin: 09/12/21 03:37 Dose: 25 mg Documented by: MARY Olanzapine (Olanzapine 5 Mg Tablet) 5 mg PO BEDTIME [facility] Last Admin: 09/12/21 22:26 Dose: 5 mg Documented by: CLARENCE Quetiapine Fumarate (Quetiapine Fumarate 25 Mg Tablet) 25 mg PO DAILY@1700 PRN PRN Reason: anxiety/restlessness Last Admin: 09/01/21 18:06 Dose: 25 mg Documented by: MAITE Senna (Sennosides 8.6 Mg Tablet) 8.6 mg PO DAILY [facility] Last Admin: 09/13/21 08:58 Dose: 8.6 mg Documented by: AURORA Trazodone HCl (Trazodone Hcl 50 Mg Tablet) 50 mg PO BEDTIME [facility] Last Admin: 09/12/21 22:26 Dose: 50 mg Documented by: CLARENCE Labs CBC & Chem 7: 09/07/21 05:36 09/07/21 05:36 Assessment and Plan (1) Dementia with behavioral disturbance: Status: Acute Plan 75 yo M who presented to the ED on 05/23/21 for AMS and failure to thrive. He was initially going to be placed at a facility, but on 05/29 was noted to have cough and a CXR revealed a new R base infiltrate concerning for aspiration pneumonia; has completed Abx course and now awaiting placement, received COVID vaccine developed symptomatic Covid-19 infection 08/17/21 without hypoxia Covid-19 infection resolved dementia with behavioral disturbances Use Seroquel as needed, redirection No behavioral issues noted in last several days, patient has no capacity, continue current psych meds aspiration pneumonia no recurrent episode,completed treatment continue nectar thick and ground/mech [NDD2] diet suspected scabies treated with permethrin x 2 doses, no new rash noted stage 2 pressure ucler (L heel / M medial heel) and stage I bilateral buttock- present on admission continue wound care foam dressing to heel, continue barrier cream, + air loss bed + high-protein diet (on supplements) dispo awaiting LTC placement Quality Stroke Does the patient have a stroke diagnosis?: No VTE Prior VTE?: No VTE Risk Level:: Medical - moderate - high VTE Device Contraindication: N/A - Device Ordered VTE Drug Contraindication: N/A - Med Ordered
[2021-09-13 15:38] VITALS: BP 110/56; PULSE 61; RESP 18; TEMP 36.6; O2SAT 95
[2021-09-13] MEDS: traZODone HCL 50 MG TABLET PO (20:12)
[2021-09-13] MEDS: OLANZapine 5 MG TABLET PO (20:12)
[2021-09-13 23:24] VITALS: BP 142/61; PULSE 55; RESP 18; TEMP 36.6; O2SAT 94
[2021-09-13 23:27] VITALS: BP 114/54; PULSE 94; RESP 16; TEMP 36.9; O2SAT 96
[2021-09-14 08:00] VITALS: BP 144/69; PULSE 67; RESP 18; TEMP 36.8; O2SAT 98
--- NOTE | 2021-09-14 09:32 | HO.PM.IMPN ---
Subjective Subjective Date of Service: 09/14/21 Interval History: no complaints Review of Systems Review of Systems: Yes Unobtainable due to mental condition Physical Exam Vital Signs: Vital Signs: Last Vital Signs Temp 98.2 F 09/14/21 08:00 Pulse 67 09/14/21 08:00 Resp 18 09/14/21 08:00 BP 144/69 H 09/14/21 08:00 Pulse Ox 98 09/14/21 08:00 BMI result Body Mass Index 22.1 Const Other: Constitutional : sleepy, disoriented at baseline not in distress Neck : Normal inspection, Supple Respiratory :? Chest moving bilaterally, no respiratory distress Neurological : Alert & disoriented, No focal deficit Objective Data Active Medications Acetaminophen (Acetaminophen 325 Mg Tablet) 650 mg PO Q4H PRN PRN Reason: mild pain Last Admin: 09/12/21 03:37 Dose: 650 mg Documented by: MARY Ascorbic Acid (Ascorbic Acid 500 Mg Tablet) 500 mg PO DAILY [facility] Last Admin: 09/13/21 08:58 Dose: 500 mg Documented by: AURORA Guaifenesin/Dextromethorphan (Guaifenesin Dm 100/10/5 Ml 5 Ml Syrup) 10 ml PO Q6H PRN PRN Reason: cough Heparin Sodium (Porcine) (Heparin Sodium,Porcine 5,000 Unit/Ml Vial) 5,000 unit SUBCUT Q12H [facility] Last Admin: 09/13/21 20:12 Dose: 5,000 unit Documented by: CLARENCE Hydroxyzine HCl (Hydroxyzine Hcl 25 Mg Tablet) 25 mg PO Q6H PRN PRN Reason: agitation Last Admin: 09/12/21 03:37 Dose: 25 mg Documented by: MAYR Olanzapine (Olanzapine 5 Mg Tablet) 5 mg PO BEDTIME [facility] Last Admin: 09/13/21 20:12 Dose: 5 mg Documented by: CLARENCE Quetiapine Fumarate (Quetiapine Fumarate 25 Mg Tablet) 25 mg PO DAILY@1700 PRN PRN Reason: anxiety/restlessness Last Admin: 09/01/21 18:06 Dose: 25 mg Documented by: MAITE Senna (Sennosides 8.6 Mg Tablet) 8.6 mg PO DAILY [facility] Last Admin: 09/13/21 08:58 Dose: 8.6 mg Documented by: AURORA Trazodone HCl (Trazodone Hcl 50 Mg Tablet) 50 mg PO BEDTIME [facility] Last Admin: 09/13/21 20:12 Dose: 50 mg Documented by: CLARENCE Labs CBC & Chem 7: 09/07/21 05:36 09/07/21 05:36 Assessment and Plan (1) Dementia with behavioral disturbance: Status: Acute Plan 75 yo M who presented to the ED on 05/23/21 for AMS and failure to thrive. He was initially going to be placed at a facility, but on 05/29 was noted to have cough and a CXR revealed a new R base infiltrate concerning for aspiration pneumonia; has completed Abx course and now awaiting placement, received COVID vaccine developed symptomatic Covid-19 infection 08/17/21 without hypoxia Covid-19 infection resolved dementia with behavioral disturbances Use Seroquel as needed, redirection No behavioral issues noted in last several days, patient has no capacity, continue current psych meds aspiration pneumonia no recurrent episode,completed treatment continue nectar thick and ground/mech [NDD2] diet suspected scabies treated with permethrin x 2 doses, no new rash noted stage 2 pressure ucler (L heel / M medial heel) and stage I bilateral buttock- present on admission continue wound care foam dressing to heel, continue barrier cream, + air loss bed + high-protein diet (on supplements) dispo awaiting LTC placement Quality Stroke Does the patient have a stroke diagnosis?: No VTE Prior VTE?: No VTE Risk Level:: Medical - moderate - high VTE Device Contraindication: N/A - Device Ordered VTE Drug Contraindication: N/A - Med Ordered
[2021-09-14] MEDS: Sennosides 8.6 MG TABLET PO (10:06)
[2021-09-14] MEDS: Heparin Sodium,Porcine 5,000 UNIT/ML VIAL 5000 UNIT SUBCUT ×2 (10:07→20:13)
[2021-09-14] MEDS: Ascorbic Acid 500 MG TABLET PO (10:07)
--- NOTE | 2021-09-14 11:39 | MHC.CM.PN ---
NURSE CORONER'S JUROR NTOE ELECTRONIC MEDICAL REOCRD REVIEWED AWAITINF FURTHER FINANCIAL DOCUMENTATION FROM HGUARDIAN TO COMPLETEEDTHE [employer] ELIGEABILITY APPLICATION CORONER'S JUROR TO FOLLOW UP ON FRIDAY WITH [facility] REGARDING THIS PROGRESS
[2021-09-14 15:54] VITALS: BP 149/73; PULSE 89; RESP 18; TEMP 36.9; O2SAT 95
[2021-09-14] MEDS: QUEtiapine Fumarate 25 MG TABLET PO (17:18)
[2021-09-14] MEDS: OLANZapine 5 MG TABLET PO (20:13)
[2021-09-14] MEDS: traZODone HCL 50 MG TABLET PO (20:13)
[2021-09-14 23:50] VITALS: BP 132/64; PULSE 51; RESP 16; TEMP 36.3; O2SAT 95
[2021-09-15 08:00] VITALS: BP 138/65; PULSE 75; RESP 15; TEMP 36.4; O2SAT 75
[2021-09-15] MEDS: Heparin Sodium,Porcine 5,000 UNIT/ML VIAL 5000 UNIT SUBCUT ×2 (09:05→21:36)
[2021-09-15] MEDS: Sennosides 8.6 MG TABLET PO (09:05)
[2021-09-15] MEDS: Ascorbic Acid 500 MG TABLET PO (09:05)
--- NOTE | 2021-09-15 11:48 | P.PNIM_ITS ---
Subjective Subjective Date of Service: 09/15/21 Interval History: no complaints Cardiovascular Cardiovascular: Reports no additional cardiovascular complaints Respiratory Respiratory: Reports no additional respiratory complaints Physical Exam Vital Signs: Vital Signs: Last Vital Signs Temp 97.5 F 09/15/21 08:00 Pulse 75 09/15/21 08:00 Resp 15 09/15/21 08:00 BP 138/65 09/15/21 08:00 Pulse Ox 75 L 09/15/21 08:00 BMI result Body Mass Index 22.1 Const Other: Constitutional : sleepy, disoriented at baseline not in distress Neck : Normal inspection, Supple Respiratory :? Chest moving bilaterally, no respiratory distress Neurological : Alert & disoriented, No focal deficit Objective Data Active Medications Acetaminophen (Acetaminophen 325 Mg Tablet) 650 mg PO Q4H PRN PRN Reason: mild pain Last Admin: 09/12/21 03:37 Dose: 650 mg Documented by: MARY Ascorbic Acid (Ascorbic Acid 500 Mg Tablet) 500 mg PO DAILY [facility] Last Admin: 09/15/21 09:05 Dose: 500 mg Documented by: GOLDEN Guaifenesin/Dextromethorphan (Guaifenesin Dm 100/10/5 Ml 5 Ml Syrup) 10 ml PO Q6H PRN PRN Reason: cough Heparin Sodium (Porcine) (Heparin Sodium,Porcine 5,000 Unit/Ml Vial) 5,000 unit SUBCUT Q12H [facility] Last Admin: 09/15/21 09:05 Dose: 5,000 unit Documented by: GOLDEN Hydroxyzine HCl (Hydroxyzine Hcl 25 Mg Tablet) 25 mg PO Q6H PRN PRN Reason: agitation Last Admin: 09/12/21 03:37 Dose: 25 mg Documented by: MARY Olanzapine (Olanzapine 5 Mg Tablet) 5 mg PO BEDTIME [facility] Last Admin: 09/14/21 20:13 Dose: 5 mg Documented by: MELODY Quetiapine Fumarate (Quetiapine Fumarate 25 Mg Tablet) 25 mg PO DAILY@1700 PRN PRN Reason: anxiety/restlessness Last Admin: 09/14/21 17:18 Dose: 25 mg Documented by: MELODY Senna (Sennosides 8.6 Mg Tablet) 8.6 mg PO DAILY [facility] Last Admin: 09/15/21 09:05 Dose: 8.6 mg Documented by: GOLDEN Trazodone HCl (Trazodone Hcl 50 Mg Tablet) 50 mg PO BEDTIME [facility] Last Admin: 09/14/21 20:13 Dose: 50 mg Documented by: MELODY Labs CBC & Chem 7: 09/07/21 05:36 09/07/21 05:36 Assessment and Plan (1) Dementia with behavioral disturbance: Status: Acute Plan 75 yo M who presented to the ED on 05/23/21 for AMS and failure to thrive. He was initially going to be placed at a facility, but on 05/29 was noted to have cough and a CXR revealed a new R base infiltrate concerning for aspiration pn eumonia; has completed Abx course and now awaiting placement, received COVID vaccine developed symptomatic Covid-19 infection 08/17/21 without hypoxia Covid-19 infection resolved dementia with behavioral disturbances Use Seroquel as needed, redirection No behavioral issues noted in last several days, patient has no capacity, continue current psych meds aspiration pneumonia no recurrent episode,completed treatment continue nectar thick and ground/mech [NDD2] diet suspected scabies treated with permethrin x 2 doses, no new rash noted stage 2 pressure ucler (L heel / M medial heel) and stage I bilateral buttock- present on admission continue wound care foam dressing to heel, continue barrier cream, + air loss bed + high-protein diet (on supplements) dispo awaiting LTC placement Quality Stroke Does the patient have a stroke diagnosis?: No VTE Prior VTE?: No VTE Risk Level:: Medical - moderate - high VTE Device Contraindication: N/A - Device Ordered VTE Drug Contraindication: N/A - Med Ordered
[2021-09-15 15:51] VITALS: BP 130/63; PULSE 53; RESP 18; TEMP 36.8; O2SAT 97
[2021-09-15] MEDS: OLANZapine 5 MG TABLET PO (21:36)
[2021-09-15] MEDS: traZODone HCL 50 MG TABLET PO (21:36)
[2021-09-15 23:46] VITALS: BP 133/59; PULSE 37; RESP 14; TEMP 36.1; O2SAT 96
[2021-09-16 00:12] VITALS: PULSE 66
[2021-09-16] MEDS: Sennosides 8.6 MG TABLET PO (08:43)
[2021-09-16] MEDS: Ascorbic Acid 500 MG TABLET PO (08:43)
[2021-09-16] MEDS: Heparin Sodium,Porcine 5,000 UNIT/ML VIAL 5000 UNIT SUBCUT ×2 (08:44→19:54)
--- NOTE | 2021-09-16 09:32 | HO.PM.IMPN ---
Subjective Subjective Date of Service: 09/16/21 Interval History: no complaints Cardiovascular Cardiovascular: Reports no additional cardiovascular complaints Respiratory Respiratory: Reports no additional respiratory complaints Physical Exam Vital Signs: Vital Signs: Last Vital Signs Temp 97 F 09/15/21 23:46 Pulse 66 09/16/21 00:12 Resp 14 09/15/21 23:46 BP 133/59 L 09/15/21 23:46 Pulse Ox 96 09/15/21 23:46 BMI result Body Mass Index 22.1 Constitutional : sleepy, disoriented at baseline not in distress Neck : Normal inspection, Supple Respiratory :? Chest moving bilaterally, no respiratory distress Neurological : Alert & disoriented, No focal deficit Objective Data Active Medications Acetaminophen (Acetaminophen 325 Mg Tablet) 650 mg PO Q4H PRN PRN Reason: mild pain Last Admin: 09/12/21 03:37 Dose: 650 mg Documented by: MARY Ascorbic Acid (Ascorbic Acid 500 Mg Tablet) 500 mg PO DAILY [facility] Last Admin: 09/16/21 08:43 Dose: 500 mg Documented by: GOLDEN Guaifenesin/Dextromethorphan (Guaifenesin Dm 100/10/5 Ml 5 Ml Syrup) 10 ml PO Q6H PRN PRN Reason: cough Heparin Sodium (Porcine) (Heparin Sodium,Porcine 5,000 Unit/Ml Vial) 5,000 unit SUBCUT Q12H [facility] Last Admin: 09/16/21 08:44 Dose: 5,000 unit Documented by: GOLDEN Hydroxyzine HCl (Hydroxyzine Hcl 25 Mg Tablet) 25 mg PO Q6H PRN PRN Reason: agitation Last Admin: 09/12/21 03:37 Dose: 25 mg Documented by: MARY Olanzapine (Olanzapine 5 Mg Tablet) 5 mg PO BEDTIME [facility] Last Admin: 09/15/21 21:36 Dose: 5 mg Documented by: MELODY Quetiapine Fumarate (Quetiapine Fumarate 25 Mg Tablet) 25 mg PO DAILY@1700 PRN PRN Reason: anxiety/restlessness Last Admin: 09/14/21 17:18 Dose: 25 mg Documented by: MELODY Senna (Sennosides 8.6 Mg Tablet) 8.6 mg PO DAILY [facility] Last Admin: 09/16/21 08:43 Dose: 8.6 mg Documented by: GOLDEN Trazodone HCl (Trazodone Hcl 50 Mg Tablet) 50 mg PO BEDTIME [facility] Last Admin: 09/15/21 21:36 Dose: 50 mg Documented by: MELODY Labs CBC & Chem 7: 09/07/21 05:36 09/07/21 05:36 Assessment and Plan (1) Dementia with behavioral disturbance: Status: Acute Plan 75 yo M who presented to the ED on 05/23/21 for AMS and failure to thrive. He was initially going to be placed at a facility, but on 05/29 was noted to have cough and a CXR revealed a new R base infiltrate concerning for aspiration pneumonia; has completed Abx course and now awaiting placement, received COVID vaccine developed symptomatic Covid-19 infection 08/17/21 without hypoxia Covid-19 infection resolved dementia with behavioral disturbances Use Seroquel as needed, redirection No behavioral issues noted in last several days, patient has no capacity, continue current psych meds aspiration pneumonia no recurrent episode,completed treatment continue nectar thick and ground/mech [NDD2] diet suspected scabies treated with permethrin x 2 doses, no new rash noted stage 2 pressure ucler (L heel / M medial heel) and stage I bilateral buttock- present on admission continue wound care foam dressing to heel, continue barrier cream, + air loss bed + high-protein diet (on supplements) dispo awaiting LTC placement Quality Stroke Does the patient have a stroke diagnosis?: No VTE Prior VTE?: No VTE Risk Level:: Medical - moderate - high VTE Device Contraindication: N/A - Device Ordered VTE Drug Contraindication: N/A - Med Ordered
[2021-09-16 15:41] VITALS: BP 140/67; PULSE 68; RESP 15; TEMP 36.3; O2SAT 98
[2021-09-16] MEDS: QUEtiapine Fumarate 25 MG TABLET PO (17:52)
[2021-09-16] MEDS: OLANZapine 5 MG TABLET PO (19:54)
[2021-09-16] MEDS: traZODone HCL 50 MG TABLET PO (19:54)
[2021-09-16] MEDS: hydrOXYzine HCL 25 MG TABLET PO (21:52)
[2021-09-16 23:35] VITALS: BP 159/75; PULSE 66; RESP 16; TEMP 36.8; O2SAT 96
[2021-09-17 07:42] VITALS: BP 144/70; PULSE 38; RESP 18; TEMP 36.7; O2SAT 98
[2021-09-17] MEDS: Sennosides 8.6 MG TABLET PO (09:01)
[2021-09-17] MEDS: Ascorbic Acid 500 MG TABLET PO (09:01)
[2021-09-17] MEDS: Heparin Sodium,Porcine 5,000 UNIT/ML VIAL 5000 UNIT SUBCUT (09:01)
--- NOTE | 2021-09-17 09:11 | P.PNIM_ITS ---
Subjective Subjective Date of Service: 09/17/21 Interval History: no complaints Cardiovascular Cardiovascular: Reports no additional cardiovascular complaints Respiratory Respiratory: Reports no additional respiratory complaints Physical Exam Vital Signs: Vital Signs: Last Vital Signs Temp 98.0 F 09/17/21 07:42 Pulse 38 L 09/17/21 07:42 Resp 18 09/17/21 07:42 BP 144/70 H 09/17/21 07:42 Pulse Ox 98 09/17/21 07:42 BMI result Body Mass Index 22.1 Constitutional : sleepy, disoriented at baseline not in distress Neck : Normal inspection, Supple Respiratory :? Chest moving bilaterally, no respiratory distress Neurological : Alert & disoriented, No focal deficit Objective Data Active Medications Acetaminophen (Acetaminophen 325 Mg Tablet) 650 mg PO Q4H PRN PRN Reason: mild pain Last Admin: 09/12/21 03:37 Dose: 650 mg Documented by: MARY Ascorbic Acid (Ascorbic Acid 500 Mg Tablet) 500 mg PO DAILY [facility] Last Admin: 09/17/21 09:01 Dose: 500 mg Documented by: GOLDEN Guaifenesin/Dextromethorphan (Guaifenesin Dm 100/10/5 Ml 5 Ml Syrup) 10 ml PO Q6H PRN PRN Reason: cough Heparin Sodium (Porcine) (Heparin Sodium,Porcine 5,000 Unit/Ml Vial) 5,000 unit SUBCUT Q12H [facility] Last Admin: 09/17/21 09:01 Dose: 5,000 unit Documented by: GOLDEN Hydroxyzine HCl (Hydroxyzine Hcl 25 Mg Tablet) 25 mg PO Q6H PRN PRN Reason: agitation Last Admin: 09/16/21 21:52 Dose: 25 mg Documented by: MELODY Olanzapine (Olanzapine 5 Mg Tablet) 5 mg PO BEDTIME [facility] Last Admin: 09/16/21 19:54 Dose: 5 mg Documented by: MELODY Quetiapine Fumarate (Quetiapine Fumarate 25 Mg Tablet) 25 mg PO DAILY@1700 PRN PRN Reason: anxiety/restlessness Last Admin: 09/16/21 17:52 Dose: 25 mg Documented by: GOLDEN Senna (Sennosides 8.6 Mg Tablet) 8.6 mg PO DAILY [facility] Last Admin: 09/17/21 09:01 Dose: 8.6 mg Documented by: GOLDEN Trazodone HCl (Trazodone Hcl 50 Mg Tablet) 50 mg PO BEDTIME [facility] Last Admin: 09/16/21 19:54 Dose: 50 mg Documented by: MELODY Labs CBC & Chem 7: 09/07/21 05:36 09/07/21 05:36 Assessment and Plan (1) Dementia with behavioral disturbance: Status: Acute Plan 75 yo M who presented to the ED on 05/23/21 for AMS and failure to thrive. He was initially going to be placed at a facility, but on 05/29 was noted to have c ough and a CXR revealed a new R base infiltrate concerning for aspiration pneumonia; has completed Abx course and now awaiting placement, received COVID vaccine developed symptomatic Covid-19 infection 08/17/21 without hypoxia Covid-19 infection resolved dementia with behavioral disturbances Use Seroquel as needed, redirection No behavioral issues noted in last several days, patient has no capacity, continue current psych meds aspiration pneumonia no recurrent episode,completed treatment continue nectar thick and ground/mech [NDD2] diet suspected scabies treated with permethrin x 2 doses, no new rash noted stage 2 pressure ucler (L heel / M medial heel) and stage I bilateral buttock- present on admission continue wound care foam dressing to heel, continue barrier cream, + air loss bed + high-protein diet (on supplements) dispo awaiting LTC placement Quality Stroke Does the patient have a stroke diagnosis?: No VTE Prior VTE?: No VTE Risk Level:: Medical - moderate - high VTE Device Contraindication: N/A - Device Ordered VTE Drug Contraindication: N/A - Med Ordered
[2021-09-17 15:22] VITALS: BP 140/70; PULSE 61; RESP 18; TEMP 36.6; O2SAT 98
[2021-09-17] MEDS: QUEtiapine Fumarate 25 MG TABLET PO (17:03)
[2021-09-17 19:10] VITALS: BP 128/66; PULSE 64; RESP 18; TEMP 36.1; O2SAT 97
[2021-09-17] MEDS: OLANZapine 5 MG TABLET PO (20:59)
[2021-09-17] MEDS: traZODone HCL 50 MG TABLET PO (20:59)
[2021-09-17 23:19] VITALS: BP 128/69; PULSE 78; RESP 16; TEMP 36.7; O2SAT 96
[2021-09-18 07:47] VITALS: BP 129/60; PULSE 50; RESP 18; TEMP 36.4; O2SAT 98
--- NOTE | 2021-09-18 08:48 | MHC.CM.PN ---
nurse case mnanager note electronic medical record reviewed . per record documentation . patient admitted for dementia and behavioral disturbances, evalauted by psych and deemed unable to make medical decisions to care for himself , , court appointed guardian and conservator ship atty. brittani leblanc is guardianship/conservator, (she is working on ibtaining all financial paperwork to submitt to [facility] for equipment operator intermodal yard placement) patient recived covid vacination developed symptomatic covid symptoms 08/17/21 with out hypoxia/resolved . per report plan ( continue seroquel as needed and use redirection per chart no behavioral issues reported s/p aspiration pna treatment complated and on aspitation precautions , dietitian following on [facility] ndd2 DIET DISCHARGE PLAN -[employer] , ONCE [facility] APPROVED GUARDIAN /CONSERVATOR GIAN WOODARD (WORKING ON OBTAINGNING ALL NEEDED FINANCIAL PAPERWORK )
--- NOTE | 2021-09-18 10:00 | HO.PM.IMPN ---
Subjective Subjective Date of Service: 09/18/21 Interval History: no complaitns Cardiovascular Cardiovascular: Reports no additional cardiovascular complaints Respiratory Respiratory: Reports no additional respiratory complaints Physical Exam Vital Signs: Vital Signs: Last Vital Signs Temp 97.5 F 09/18/21 07:47 Pulse 50 09/18/21 07:47 Resp 18 09/18/21 07:47 BP 129/60 09/18/21 07:47 Pulse Ox 98 09/18/21 07:47 BMI result Body Mass Index 22.1 Constitutional : sleepy, disoriented at baseline not in distress Neck : Normal inspection, Supple Respiratory :? Chest moving bilaterally, no respiratory distress Neurological : Alert & disoriented, No focal deficit Objective Data Active Medications Acetaminophen (Acetaminophen 325 Mg Tablet) 650 mg PO Q4H PRN PRN Reason: mild pain Last Admin: 09/12/21 03:37 Dose: 650 mg Documented by: MARY Ascorbic Acid (Ascorbic Acid 500 Mg Tablet) 500 mg PO DAILY [facility] Last Admin: 09/17/21 09:01 Dose: 500 mg Documented by: GOLDEN Guaifenesin/Dextromethorphan (Guaifenesin Dm 100/10/5 Ml 5 Ml Syrup) 10 ml PO Q6H PRN PRN Reason: cough Heparin Sodium (Porcine) (Heparin Sodium,Porcine 5,000 Unit/Ml Vial) 5,000 unit SUBCUT Q12H [facility] Last Admin: 09/17/21 21:05 Dose: Not Given Documented by: CLARENCE Non-Admin Reason: Patient Refused Hydroxyzine HCl (Hydroxyzine Hcl 25 Mg Tablet) 25 mg PO Q6H PRN PRN Reason: agitation Last Admin: 09/16/21 21:52 Dose: 25 mg Documented by: MELODY Olanzapine (Olanzapine 5 Mg Tablet) 5 mg PO BEDTIME [facility] Last Admin: 09/17/21 20:59 Dose: 5 mg Documented by: CLARENCE Quetiapine Fumarate (Quetiapine Fumarate 25 Mg Tablet) 25 mg PO DAILY@1700 PRN PRN Reason: anxiety/restlessness Last Admin: 09/17/21 17:03 Dose: 25 mg Documented by: GOLDEN Senna (Sennosides 8.6 Mg Tablet) 8.6 mg PO DAILY [facility] Last Admin: 09/17/21 09:01 Dose: 8.6 mg Documented by: GOLDEN Trazodone HCl (Trazodone Hcl 50 Mg Tablet) 50 mg PO BEDTIME [facility] Last Admin: 09/17/21 20:59 Dose: 50 mg Documented by: CLARENCE Labs CBC & Chem 7: 09/07/21 05:36 09/07/21 05:36 Assessment and Plan (1) Dementia with behavioral disturbance: Status: Acute Plan 75 yo M who presented to the ED on 05/23/21 for AMS and failure to thrive. He was initially going to be placed at a facility, but on 05/29 was noted to have cough and a CXR revealed a new R base infiltrate concerning for aspiration pneumonia; has completed Abx course and now awaiting placement, received COVID vaccine developed symptomatic Covid-19 infection 08/17/21 without hypoxia Covid-19 infection resolved dementia with behavioral disturbances Use Seroquel as needed, redirection No behavioral issues noted in last several days, patient has no capacity, continue current psych meds aspiration pneumonia no recurrent episode,completed treatment continue nectar thick and ground/mech [NDD2] diet suspected scabies treated with permethrin x 2 doses, no new rash noted stage 2 pressure ucler (L heel / M medial heel) and stage I bilateral buttock- present on admission continue wound care foam dressing to heel, continue barrier cream, + air loss bed + high-protein diet (on supplements) dispo awaiting LTC placement Quality Stroke Does the patient have a stroke diagnosis?: No VTE Prior VTE?: No VTE Risk Level:: Medical - moderate - high VTE Device Contraindication: N/A - Device Ordered VTE Drug Contraindication: N/A - Med Ordered
[2021-09-18] MEDS: Sennosides 8.6 MG TABLET PO (11:34)
[2021-09-18] MEDS: Ascorbic Acid 500 MG TABLET PO (11:34)
[2021-09-18] MEDS: Heparin Sodium,Porcine 5,000 UNIT/ML VIAL 5000 UNIT SUBCUT ×2 (11:34→21:15)
[2021-09-18 15:15] VITALS: BP 157/69; PULSE 60; RESP 14; TEMP 36.7; O2SAT 97
[2021-09-18] MEDS: traZODone HCL 50 MG TABLET PO (21:14)
[2021-09-18] MEDS: OLANZapine 5 MG TABLET PO (21:14)
[2021-09-18 23:20] VITALS: BP 111/64; PULSE 83; RESP 16; TEMP 36.4; O2SAT 94
[2021-09-19 07:03] VITALS: BP 102/58; PULSE 92; RESP 20; TEMP 35.5; O2SAT 96
[2021-09-19] MEDS: Sennosides 8.6 MG TABLET PO (09:53)
[2021-09-19] MEDS: Ascorbic Acid 500 MG TABLET PO (09:53)
[2021-09-19] MEDS: Heparin Sodium,Porcine 5,000 UNIT/ML VIAL 5000 UNIT SUBCUT ×2 (09:57→20:11)
--- NOTE | 2021-09-19 10:10 | HO.PM.IMPN ---
Subjective Subjective Date of Service: 09/19/21 Interval History: laying in the bed, looks comfortable not in distress No reported other overnight events. Systemic review: No fever, chills or weakness No chest pain, palpitation No shortness of breath or coughing No abdominal pain, nausea or vomiting Physical Exam Vital Signs: Vital Signs: Last Vital Signs Temp 96 F L 09/19/21 07:03 Pulse 92 09/19/21 07:03 Resp 20 09/19/21 07:03 BP 102/58 L 09/19/21 07:03 Pulse Ox 96 09/19/21 07:03 BMI result Body Mass Index 22.1 Const: Other: Constitutional : sleepy, disoriented at baseline not in distress Neck : Normal inspection, Supple Respiratory : Chest moving bilaterally, no respiratory distress Neurological : Alert & disoriented, No focal deficit Objective Data Active Medications Acetaminophen (Acetaminophen 325 Mg Tablet) 650 mg PO Q4H PRN PRN Reason: mild pain Last Admin: 09/12/21 03:37 Dose: 650 mg Documented by: MARY Ascorbic Acid (Ascorbic Acid 500 Mg Tablet) 500 mg PO DAILY [facility] Last Admin: 09/19/21 09:53 Dose: 500 mg Documented by: MARIAH Guaifenesin/Dextromethorphan (Guaifenesin Dm 100/10/5 Ml 5 Ml Syrup) 10 ml PO Q6H PRN PRN Reason: cough Heparin Sodium (Porcine) (Heparin Sodium,Porcine 5,000 Unit/Ml Vial) 5,000 unit SUBCUT Q12H [facility] Last Admin: 09/19/21 09:57 Dose: 5,000 unit Documented by: MARIAH Hydroxyzine HCl (Hydroxyzine Hcl 25 Mg Tablet) 25 mg PO Q6H PRN PRN Reason: agitation Last Admin: 09/16/21 21:52 Dose: 25 mg Documented by: MELODY Olanzapine (Olanzapine 5 Mg Tablet) 5 mg PO BEDTIME [facility] Last Admin: 09/18/21 21:14 Dose: 5 mg Documented by: CLARENCE Quetiapine Fumarate (Quetiapine Fumarate 25 Mg Tablet) 25 mg PO DAILY@1700 PRN PRN Reason: anxiety/restlessness Last Admin: 09/17/21 17:03 Dose: 25 mg Documented by: GOLDEN Senna (Sennosides 8.6 Mg Tablet) 8.6 mg PO DAILY [facility] Last Admin: 09/19/21 09:53 Dose: 8.6 mg Documented by: MARIAH Trazodone HCl (Trazodone Hcl 50 Mg Tablet) 50 mg PO BEDTIME [facility] Last Admin: 09/18/21 21:14 Dose: 50 mg Documented by: CLARENCE Labs CBC & Chem 7: 09/07/21 05:36 09/07/21 05:36 Assessment and Plan (1) Dementia with behavioral disturbance: Status: Acute Plan 75 yo M who presented to the ED on 05/23/21 for AMS and failure to thrive. He was initially going to be placed at a facility, but on 05/29 was noted to have cough and a CXR revealed a new R base infiltrate concerning for aspiration pneumonia; has completed Abx course and now awaiting placement, received COVID vaccine developed symptomatic Covid-19 infection 08/17/21 without hypoxia Covid-19 infection resolved dementia with behavioral disturbances Use Seroquel as needed, redirection No behavioral issues noted in last several days, patient has no capacity, continue current psych meds aspiration pneumonia no recurrent episode,completed treatment continue nectar thick and ground/mech [NDD2] diet suspected scabies treated with permethrin x 2 doses, no new rash noted stage 2 pressure ucler (L heel / M medial heel) and stage I bilateral buttock- present on admission continue wound care foam dressing to heel, continue barrier cream, + air loss bed + high-protein diet (on supplements) dispo awaiting LTC placement Quality Stroke Does the patient have a stroke diagnosis?: No VTE Prior VTE?: No VTE Risk Level:: Medical - moderate - high VTE Device Contraindication: N/A - Device Ordered VTE Drug Contraindication: N/A - Med Ordered
[2021-09-19 14:59] VITALS: BP 148/70; PULSE 56; RESP 18; TEMP 37.1; O2SAT 95
[2021-09-19 15:37] VITALS: BP 104/52; PULSE 99; RESP 18; TEMP 36.3; O2SAT 97
[2021-09-19] MEDS: OLANZapine 5 MG TABLET PO (20:11)
[2021-09-19] MEDS: traZODone HCL 50 MG TABLET PO (20:11)
[2021-09-19 23:26] VITALS: BP 159/67; PULSE 73; RESP 17; TEMP 36.3; O2SAT 97
[2021-09-20 07:54] VITALS: BP 110/55; PULSE 72; RESP 16; TEMP 36.4; O2SAT 97
[2021-09-20] MEDS: Sennosides 8.6 MG TABLET PO (08:28)
[2021-09-20] MEDS: Ascorbic Acid 500 MG TABLET PO (08:28)
[2021-09-20] MEDS: Heparin Sodium,Porcine 5,000 UNIT/ML VIAL 5000 UNIT SUBCUT ×2 (08:28→19:35)
--- NOTE | 2021-09-20 11:47 | P.PNIM_ITS ---
Subjective Subjective Date of Service: 09/20/21 Interval History: laying in the bed, looks comfortable not in distress No reported other overnight events. Systemic review: No fever, chills or weakness No chest pain, palpitation No shortness of breath or coughing No abdominal pain, nausea or vomiting Physical Exam Vital Signs: Vital Signs: Last Vital Signs Temp 97.5 F 09/20/21 07:54 Pulse 72 09/20/21 07:54 Resp 16 09/20/21 07:54 BP 110/55 L 09/20/21 07:54 Pulse Ox 97 09/20/21 07:54 BMI result Body Mass Index 22.1 Const: Other: Constitutional : sleepy, disoriented at baseline not in distress Neck : Normal inspection, Supple Respiratory : Chest moving bilaterally, no respiratory distress Neurological : Alert & disoriented, No focal deficit Objective Data Active Medications Acetaminophen (Acetaminophen 325 Mg Tablet) 650 mg PO Q4H PRN PRN Reason: mild pain Last Admin: 09/12/21 03:37 Dose: 650 mg Documented by: MARY Ascorbic Acid (Ascorbic Acid 500 Mg Tablet) 500 mg PO DAILY [facility] Last Admin: 09/20/21 08:28 Dose: 500 mg Documented by: AURORA Guaifenesin/Dextromethorphan (Guaifenesin Dm 100/10/5 Ml 5 Ml Syrup) 10 ml PO Q6H PRN PRN Reason: cough Heparin Sodium (Porcine) (Heparin Sodium,Porcine 5,000 Unit/Ml Vial) 5,000 unit SUBCUT Q12H [facility] Last Admin: 09/20/21 08:28 Dose: 5,000 unit Documented by: AURORA Hydroxyzine HCl (Hydroxyzine Hcl 25 Mg Tablet) 25 mg PO Q6H PRN PRN Reason: agitation Last Admin: 09/16/21 21:52 Dose: 25 mg Documented by: MELODY Olanzapine (Olanzapine 5 Mg Tablet) 5 mg PO BEDTIME [facility] Last Admin: 09/19/21 20:11 Dose: 5 mg Documented by: ZAIRE Quetiapine Fumarate (Quetiapine Fumarate 25 Mg Tablet) 25 mg PO DAILY@1700 PRN PRN Reason: anxiety/restlessness Last Admin: 09/17/21 17:03 Dose: 25 mg Documented by: GOLDEN Senna (Sennosides 8.6 Mg Tablet) 8.6 mg PO DAILY [facility] Last Admin: 09/20/21 08:28 Dose: 8.6 mg Documented by: AURORA Trazodone HCl (Trazodone Hcl 50 Mg Tablet) 50 mg PO BEDTIME [facility] Last Admin: 09/19/21 20:11 Dose: 50 mg Documented by: ZAIRE Labs CBC & Chem 7: 09/07/21 05:36 09/07/21 05:36 Assessment and Plan (1) Dementia with behavioral disturbance: Status: Acute Plan 75 yo M who presented to the ED on 05/23/21 for AMS and failure to thrive. He was initially going to be placed at a facility, but on 05/29 was noted to have cough and a CXR revealed a new R base infiltrate concerning for aspiration pneumonia; has completed Abx course and now awaiting placement, received COVID vaccine developed symptomatic Covid-19 infection 08/17/21 without hypoxia Covid-19 infection resolved dementia with behavioral disturbances Use Seroquel as needed, redirection No behavioral issues noted in last several days, patient has no capacity, continue current psych meds aspiration pneumonia no recurrent episode,completed treatment continue nectar thick and ground/mech [NDD2] diet suspected scabies treated with permethrin x 2 doses, no new rash noted stage 2 pressure ucler (L heel / M medial heel) and stage I bilateral buttock- present on admission continue wound care foam dressing to heel, continue barrier cream, + air loss bed + high-protein diet (on supplements) dispo awaiting LTC placement Quality Stroke Does the patient have a stroke diagnosis?: No VTE Prior VTE?: No VTE Risk Level:: Medical - moderate - high VTE Device Contraindication: N/A - Device Ordered VTE Drug Contraindication: N/A - Med Ordered
[2021-09-20 15:26] VITALS: BP 186/79; PULSE 69; RESP 14; TEMP 36.4; O2SAT 99
[2021-09-20] MEDS: traZODone HCL 50 MG TABLET PO (19:36)
[2021-09-20] MEDS: OLANZapine 5 MG TABLET PO (19:36)
[2021-09-21] VITALS: RESP 16
[2021-09-21] MEDS: Heparin Sodium,Porcine 5,000 UNIT/ML VIAL 5000 UNIT SUBCUT ×2 (07:37→19:31)
[2021-09-21] MEDS: Sennosides 8.6 MG TABLET PO (07:37)
[2021-09-21] MEDS: Ascorbic Acid 500 MG TABLET PO (07:37)
[2021-09-21 07:40] VITALS: BP 139/62; PULSE 60; RESP 15; TEMP 37.1; O2SAT 96
--- NOTE | 2021-09-21 10:14 | HO.PM.IMPN ---
Subjective Subjective Date of Service: 09/21/21 Interval History: laying in the bed, looks comfortable not in distress No reported other overnight events. Systemic review: No fever, chills or weakness No chest pain, palpitation No shortness of breath or coughing No abdominal pain, nausea or vomiting Physical Exam Vital Signs: Vital Signs: Last Vital Signs Temp 98.8 F 09/21/21 07:40 Pulse 60 09/21/21 07:40 Resp 15 09/21/21 07:40 BP 139/62 09/21/21 07:40 Pulse Ox 96 09/21/21 07:40 BMI result Body Mass Index 22.1 Const: Other: Constitutional : sleepy, disoriented at baseline not in distress Neck : Normal inspection, Supple Respiratory : Chest moving bilaterally, no respiratory distress Neurological : Alert & disoriented, No focal deficit Objective Data Active Medications Acetaminophen (Acetaminophen 325 Mg Tablet) 650 mg PO Q4H PRN PRN Reason: mild pain Last Admin: 09/12/21 03:37 Dose: 650 mg Documented by: MARY Ascorbic Acid (Ascorbic Acid 500 Mg Tablet) 500 mg PO DAILY [facility] Last Admin: 09/21/21 07:37 Dose: 500 mg Documented by: FRANCIE Guaifenesin/Dextromethorphan (Guaifenesin Dm 100/10/5 Ml 5 Ml Syrup) 10 ml PO Q6H PRN PRN Reason: cough Heparin Sodium (Porcine) (Heparin Sodium,Porcine 5,000 Unit/Ml Vial) 5,000 unit SUBCUT Q12H [facility] Last Admin: 09/21/21 07:37 Dose: 5,000 unit Documented by: FRANCIE Hydroxyzine HCl (Hydroxyzine Hcl 25 Mg Tablet) 25 mg PO Q6H PRN PRN Reason: agitation Last Admin: 09/16/21 21:52 Dose: 25 mg Documented by: MELODY Olanzapine (Olanzapine 5 Mg Tablet) 5 mg PO BEDTIME [facility] Last Admin: 09/20/21 19:36 Dose: 5 mg Documented by: GIL Quetiapine Fumarate (Quetiapine Fumarate 25 Mg Tablet) 25 mg PO DAILY@1700 PRN PRN Reason: anxiety/restlessness Last Admin: 09/17/21 17:03 Dose: 25 mg Documented by: GOLDEN Senna (Sennosides 8.6 Mg Tablet) 8.6 mg PO DAILY [facility] Last Admin: 09/21/21 07:37 Dose: 8.6 mg Documented by: FRANCIE Trazodone HCl (Trazodone Hcl 50 Mg Tablet) 50 mg PO BEDTIME [facility] Last Admin: 09/20/21 19:36 Dose: 50 mg Documented by: GIL Labs CBC & Chem 7: 09/07/21 05:36 09/07/21 05:36 Assessment and Plan (1) Dementia with behavioral disturbance: Status: Acute Plan 75 yo M who presented to the ED on 05/23/21 for AMS and failure to thrive. He was initially going to be placed at a facility, but on 05/29 was noted to have cough and a CXR revealed a new R base infiltrate concerning for aspiration pneumonia; has completed Abx course and now awaiting placement, received COVID vaccine developed symptomatic Covid-19 infection 08/17/21 without hypoxia Covid-19 infection resolved dementia with behavioral disturbances Use Seroquel as needed, redirection No behavioral issues noted in last several days, patient has no capacity, continue current psych meds aspiration pneumonia no recurrent episode,completed treatment continue nectar thick and ground/mech [NDD2] diet suspected scabies treated with permethrin x 2 doses, no new rash noted stage 2 pressure ucler (L heel / M medial heel) and stage I bilateral buttock- present on admission continue wound care foam dressing to heel, continue barrier cream, + air loss bed + high-protein diet (on supplements) dispo awaiting LTC placement Quality Stroke Does the patient have a stroke diagnosis?: No VTE Prior VTE?: No VTE Risk Level:: Medical - moderate - high VTE Device Contraindication: N/A - Device Ordered VTE Drug Contraindication: N/A - Med Ordered
[2021-09-21 15:20] VITALS: BP 104/46; PULSE 60; RESP 17; TEMP 36.6; O2SAT 95
[2021-09-21] MEDS: traZODone HCL 50 MG TABLET PO (19:31)
[2021-09-21] MEDS: OLANZapine 5 MG TABLET PO (19:31)
[2021-09-22 08:00] VITALS: BP 114/60; PULSE 94; RESP 15; TEMP 36.2; O2SAT 95
[2021-09-22] MEDS: Sennosides 8.6 MG TABLET PO (09:04)
[2021-09-22] MEDS: Heparin Sodium,Porcine 5,000 UNIT/ML VIAL 5000 UNIT SUBCUT ×2 (09:04→19:30)
[2021-09-22] MEDS: Ascorbic Acid 500 MG TABLET PO (09:04)
--- NOTE | 2021-09-22 12:33 | HO.PM.IMPN ---
Subjective Subjective Date of Service: 09/22/21 Interval History: laying in the bed, looks comfortable not in distress No reported other overnight events. Systemic review: No fever, chills or weakness No chest pain, palpitation No shortness of breath or coughing No abdominal pain, nausea or vomiting Physical Exam Vital Signs: Vital Signs: Last Vital Signs Temp 97.2 F 09/22/21 08:00 Pulse 94 09/22/21 08:00 Resp 15 09/22/21 08:00 BP 114/60 09/22/21 08:00 Pulse Ox 95 09/22/21 08:00 BMI result Body Mass Index 22.1 Const: Other: Constitutional : sleepy, disoriented at baseline not in distress Neck : Normal inspection, Supple Respiratory : Chest moving bilaterally, no respiratory distress Neurological : Alert & disoriented, No focal deficit Objective Data Active Medications Ascorbic Acid (Ascorbic Acid 500 Mg Tablet) 500 mg PO DAILY [facility] Last Admin: 09/22/21 09:04 Dose: 500 mg Documented by: ROBERT Guaifenesin/Dextromethorphan (Guaifenesin Dm 100/10/5 Ml 5 Ml Syrup) 10 ml PO Q6H PRN PRN Reason: cough Heparin Sodium (Porcine) (Heparin Sodium,Porcine 5,000 Unit/Ml Vial) 5,000 unit SUBCUT Q12H [facility] Last Admin: 09/22/21 09:04 Dose: 5,000 unit Documented by: ROBERT Hydroxyzine HCl (Hydroxyzine Hcl 25 Mg Tablet) 25 mg PO Q6H PRN PRN Reason: agitation Last Admin: 09/16/21 21:52 Dose: 25 mg Documented by: MELODY Olanzapine (Olanzapine 5 Mg Tablet) 5 mg PO BEDTIME [facility] Last Admin: 09/21/21 19:31 Dose: 5 mg Documented by: ELODIA Quetiapine Fumarate (Quetiapine Fumarate 25 Mg Tablet) 25 mg PO DAILY@1700 PRN PRN Reason: anxiety/restlessness Last Admin: 09/17/21 17:03 Dose: 25 mg Documented by: GOLDEN Senna (Sennosides 8.6 Mg Tablet) 8.6 mg PO DAILY [facility] Last Admin: 09/22/21 09:04 Dose: 8.6 mg Documented by: ROBERT Trazodone HCl (Trazodone Hcl 50 Mg Tablet) 50 mg PO BEDTIME [facility] Last Admin: 09/21/21 19:31 Dose: 50 mg Documented by: ELODIA Labs CBC & Chem 7: 09/07/21 05:36 09/07/21 05:36 Assessment and Plan (1) Dementia with behavioral disturbance: Status: Acute Plan 75 yo M who presented to the ED on 05/23/21 for AMS and failure to thrive. He was initially going to be placed at a facility, but on 05/29 was noted to have cough and a CXR revealed a new R base infiltrate concerning for aspiration pneumonia; has completed Abx course and now awaiting placement, received COVID vaccine developed symptomatic Covid-19 infection 08/17/21 without hypoxia Covid-19 infection resolved dementia with behavioral disturbances Use Seroquel as needed, redirection No behavioral issues noted in last several days, patient has no capacity, continue current psych meds aspiration pneumonia no recurrent episode,completed treatment continue nectar thick and ground/mech [NDD2] diet suspected scabies treated with permethrin x 2 doses, no new rash noted stage 2 pressure ucler (L heel / M medial heel) and stage I bilateral buttock- present on admission continue wound care foam dressing to heel, continue barrier cream, + air loss bed + high-protein diet (on supplements) dispo awaiting LTC placement Quality Stroke Does the patient have a stroke diagnosis?: No VTE Prior VTE?: No VTE Risk Level:: Medical - moderate - high VTE Device Contraindication: N/A - Device Ordered VTE Drug Contraindication: N/A - Med Ordered
[2021-09-22 15:17] VITALS: BP 128/66; PULSE 60; RESP 18; TEMP 37.2; O2SAT 96
[2021-09-22] MEDS: OLANZapine 5 MG TABLET PO (19:30)
[2021-09-22] MEDS: traZODone HCL 50 MG TABLET PO (19:30)
[2021-09-22 23:40] VITALS: BP 163/75; PULSE 71; RESP 18; TEMP 36.3; O2SAT 99
[2021-09-23 07:50] VITALS: BP 120/66; PULSE 85; RESP 16; TEMP 36.8; O2SAT 100
[2021-09-23] MEDS: Sennosides 8.6 MG TABLET PO (08:13)
[2021-09-23] MEDS: Ascorbic Acid 500 MG TABLET PO (08:13)
--- NOTE | 2021-09-23 10:48 | P.PNIM_ITS ---
Subjective Subjective Date of Service: 09/23/21 Interval History: laying in the bed, looks comfortable not in distress No reported other overnight events. Systemic review: No fever, chills or weakness No chest pain, palpitation No shortness of breath or coughing No abdominal pain, nausea or vomiting Physical Exam Vital Signs: Vital Signs: Last Vital Signs Temp 98.2 F 09/23/21 07:50 Pulse 85 09/23/21 07:50 Resp 16 09/23/21 07:50 BP 120/66 09/23/21 07:50 Pulse Ox 100 09/23/21 07:50 BMI result Body Mass Index 22.1 Const: Other: Constitutional : sleepy, disoriented at baseline not in distress Neck : Normal inspection, Supple Respiratory : Chest moving bilaterally, no respiratory distress Neurological : Alert & disoriented, No focal deficit Objective Data Active Medications Ascorbic Acid (Ascorbic Acid 500 Mg Tablet) 500 mg PO DAILY [facility] Last Admin: 09/23/21 08:13 Dose: 500 mg Documented by: ROBERT Guaifenesin/Dextromethorphan (Guaifenesin Dm 100/10/5 Ml 5 Ml Syrup) 10 ml PO Q6H PRN PRN Reason: cough Hydroxyzine HCl (Hydroxyzine Hcl 25 Mg Tablet) 25 mg PO Q6H PRN PRN Reason: agitation Last Admin: 09/16/21 21:52 Dose: 25 mg Documented by: MELODY Olanzapine (Olanzapine 5 Mg Tablet) 5 mg PO BEDTIME [facility] Last Admin: 09/22/21 19:30 Dose: 5 mg Documented by: ELODIA Quetiapine Fumarate (Quetiapine Fumarate 25 Mg Tablet) 25 mg PO DAILY@1700 PRN PRN Reason: anxiety/restlessness Last Admin: 09/17/21 17:03 Dose: 25 mg Documented by: GOLDEN Senna (Sennosides 8.6 Mg Tablet) 8.6 mg PO DAILY [facility] Last Admin: 09/23/21 08:13 Dose: 8.6 mg Documented by: ROBERT Trazodone HCl (Trazodone Hcl 50 Mg Tablet) 50 mg PO BEDTIME [facility] Last Admin: 09/22/21 19:30 Dose: 50 mg Documented by: ELODIA Labs CBC & Chem 7: 09/07/21 05:36 09/07/21 05:36 Assessment and Plan (1) Dementia with behavioral disturbance: Status: Acute Plan 75 yo M who presented to the ED on 05/23/21 for AMS and failure to thrive. He was initially going to be placed at a facility, but on 05/29 was noted to have cough and a CXR revealed a new R base infiltrate concerning for aspiration pneumonia; has completed Abx course and now awaiting placement, received COVID vaccine developed symptomatic Covid-19 infection 08/17/21 without hypoxia Covid-19 infection resolved dementia with behavioral disturbances Use Seroquel as needed, redirection No behavioral issues noted in last several days patient has no capacity, continue current psych meds aspiration pneumonia no recurrent episode,completed treatment continue nectar thick and ground/mech [NDD2] diet suspected scabies treated with permethrin x 2 doses, no new rash noted stage 2 pressure ucler (L heel / M medial heel) and stage I bilateral buttock- present on admission continue wound care foam dressing to heel, continue barrier cream, + air loss bed + high-protein diet (on supplements) dispo awaiting LTC placement Quality Stroke Does the patient have a stroke diagnosis?: No VTE Prior VTE?: No VTE Risk Level:: Medical - moderate - high VTE Device Contraindication: N/A - Device Ordered VTE Drug Contraindication: N/A - Med Ordered
[2021-09-23 15:38] VITALS: BP 119/81; PULSE 66; RESP 18; TEMP 36.7; O2SAT 96
[2021-09-23] MEDS: OLANZapine 5 MG TABLET PO (20:20)
[2021-09-23] MEDS: traZODone HCL 50 MG TABLET PO (20:20)
[2021-09-23 23:28] VITALS: BP 136/63; PULSE 71; RESP 20; TEMP 36.3; O2SAT 96
[2021-09-24] MEDS: Sennosides 8.6 MG TABLET PO (07:20)
[2021-09-24] MEDS: Ascorbic Acid 500 MG TABLET PO (07:20)
[2021-09-24 07:34] VITALS: BP 135/64; PULSE 69; RESP 18; TEMP 37.1; O2SAT 98
--- NOTE | 2021-09-24 11:43 | P.PNIM_ITS ---
Subjective Subjective Date of Service: 09/24/21 Interval History: laying in the bed, looks comfortable not in distress No reported other overnight events. Systemic review: No fever, chills or weakness No chest pain, palpitation No shortness of breath or coughing No abdominal pain, nausea or vomiting Physical Exam Vital Signs: Vital Signs: Last Vital Signs Temp 98.7 F 09/24/21 07:34 Pulse 69 09/24/21 07:34 Resp 18 09/24/21 07:34 BP 135/64 09/24/21 07:34 Pulse Ox 98 09/24/21 07:34 BMI result Body Mass Index 22.1 Const: Other: Constitutional : sleepy, disoriented at baseline not in distress Neck : Normal inspection, Supple Respiratory : Chest moving bilaterally, no respiratory distress Neurological : Alert & disoriented, No focal deficit Objective Data Active Medications Ascorbic Acid (Ascorbic Acid 500 Mg Tablet) 500 mg PO DAILY [facility] Last Admin: 09/24/21 07:20 Dose: 500 mg Documented by: ROBERT Guaifenesin/Dextromethorphan (Guaifenesin Dm 100/10/5 Ml 5 Ml Syrup) 10 ml PO Q6H PRN PRN Reason: cough Hydroxyzine HCl (Hydroxyzine Hcl 25 Mg Tablet) 25 mg PO Q6H PRN PRN Reason: agitation Last Admin: 09/16/21 21:52 Dose: 25 mg Documented by: MELODY Olanzapine (Olanzapine 5 Mg Tablet) 5 mg PO BEDTIME [facility] Last Admin: 09/23/21 20:20 Dose: 5 mg Documented by: ELODIA Quetiapine Fumarate (Quetiapine Fumarate 25 Mg Tablet) 25 mg PO DAILY@1700 PRN PRN Reason: anxiety/restlessness Last Admin: 09/17/21 17:03 Dose: 25 mg Documented by: GOLDEN Senna (Sennosides 8.6 Mg Tablet) 8.6 mg PO DAILY [facility] Last Admin: 09/24/21 07:20 Dose: 8.6 mg Documented by: ROBERT Trazodone HCl (Trazodone Hcl 50 Mg Tablet) 50 mg PO BEDTIME [facility] Last Admin: 09/23/21 20:20 Dose: 50 mg Documented by: ELODIA Labs CBC & Chem 7: 09/07/21 05:36 09/07/21 05:36 Assessment and Plan (1) Dementia with behavioral disturbance: Status: Acute Plan 75 yo M who presented to the ED on 05/23/21 for AMS and failure to thrive. He was initially going to be placed at a facility, but on 05/29 was noted to have cough and a CXR revealed a new R base infiltrate concerning for aspiration pneumonia; has completed Abx course and now awaiting placement, received COVID vaccine developed symptomatic Covid-19 infection 08/17/21 without hypoxia Covid-19 infection resolved dementia with behavioral disturbances Use Seroquel as needed, redirection No behavioral issues noted in last several days patient has no capacity, continue current psych meds aspiration pneumonia no recurrent episode,completed treatment continue nectar thick and ground/mech [NDD2] diet suspected scabies treated with permethrin x 2 doses, no new rash noted stage 2 pressure ucler (L heel / M medial heel) and stage I bilateral buttock- present on admission continue wound care foam dressing to heel, continue barrier cream, + air loss bed + high-protein diet (on supplements) dispo awaiting LTC placement Quality Stroke Does the patient have a stroke diagnosis?: No VTE Prior VTE?: No VTE Risk Level:: Medical - moderate - high VTE Device Contraindication: N/A - Device Ordered VTE Drug Contraindication: N/A - Med Ordered
[2021-09-24 15:28] VITALS: BP 117/55; PULSE 70; RESP 14; TEMP 36.8; O2SAT 96
[2021-09-24] MEDS: OLANZapine 5 MG TABLET PO (20:10)
[2021-09-24] MEDS: traZODone HCL 50 MG TABLET PO (20:10)
[2021-09-24 23:47] VITALS: BP 140/80; PULSE 69; RESP 16; TEMP 36.4; O2SAT 96
[2021-09-25 07:50] VITALS: BP 127/65; PULSE 88; RESP 18; TEMP 36.1; O2SAT 96
[2021-09-25] MEDS: Sennosides 8.6 MG TABLET PO (09:06)
[2021-09-25] MEDS: Ascorbic Acid 500 MG TABLET PO (09:06)
--- NOTE | 2021-09-25 10:51 | HO.PM.IMPN ---
Subjective Subjective Date of Service: 09/25/21 Interval History: Laying in the bed, looks comfortable not in distress No reported other overnight events. Systemic review: No fever, chills or weakness No chest pain, palpitation No shortness of breath or coughing No abdominal pain, nausea or vomiting Physical Exam Vital Signs: Vital Signs: Last Vital Signs Temp 96.9 F 09/25/21 07:50 Pulse 88 09/25/21 07:50 Resp 18 09/25/21 07:50 BP 127/65 09/25/21 07:50 Pulse Ox 96 09/25/21 07:50 BMI result Body Mass Index 22.1 Const: Other: Constitutional : sleepy, disoriented at baseline not in distress Neck : Normal inspection, Supple Respiratory : Chest moving bilaterally, no respiratory distress Neurological : Alert & disoriented, No focal deficit Objective Data Active Medications Ascorbic Acid (Ascorbic Acid 500 Mg Tablet) 500 mg PO DAILY [facility] Last Admin: 09/25/21 09:06 Dose: 500 mg Documented by: MARIAH Guaifenesin/Dextromethorphan (Guaifenesin Dm 100/10/5 Ml 5 Ml Syrup) 10 ml PO Q6H PRN PRN Reason: cough Hydroxyzine HCl (Hydroxyzine Hcl 25 Mg Tablet) 25 mg PO Q6H PRN PRN Reason: agitation Last Admin: 09/16/21 21:52 Dose: 25 mg Documented by: MELODY Olanzapine (Olanzapine 5 Mg Tablet) 5 mg PO BEDTIME [facility] Last Admin: 09/24/21 20:10 Dose: 5 mg Documented by: ARELY Quetiapine Fumarate (Quetiapine Fumarate 25 Mg Tablet) 25 mg PO DAILY@1700 PRN PRN Reason: anxiety/restlessness Last Admin: 09/17/21 17:03 Dose: 25 mg Documented by: GOLDEN Senna (Sennosides 8.6 Mg Tablet) 8.6 mg PO DAILY [facility] Last Admin: 09/25/21 09:06 Dose: 8.6 mg Documented by: MARIAH Trazodone HCl (Trazodone Hcl 50 Mg Tablet) 50 mg PO BEDTIME [facility] Last Admin: 09/24/21 20:10 Dose: 50 mg Documented by: ARELY Labs CBC & Chem 7: 09/07/21 05:36 09/07/21 05:36 Assessment and Plan (1) Dementia with behavioral disturbance: Status: Acute Plan 75 yo M who presented to the ED on 05/23/21 for AMS and failure to thrive. He was initially going to be placed at a facility, but on 05/29 was noted to have cough and a CXR revealed a new R base infiltrate concerning for aspiration pneumonia; has completed Abx course and now awaiting placement, received COVID vaccine developed symptomatic Covid-19 infection 08/17/21 without hypoxia Covid-19 infection resolved dementia with behavioral disturbances Use Seroquel as needed, redirection No behavioral issues noted in last several days patient has no capacity, continue current psych meds aspiration pneumonia no recurrent episode,completed treatment continue nectar thick and ground/mech [NDD2] diet suspected scabies treated with permethrin x 2 doses, no new rash noted stage 2 pressure ucler (L heel / M medial heel) and stage I bilateral buttock- present on admission continue wound care foam dressing to heel, continue barrier cream, + air loss bed + high-protein diet (on supplements) dispo awaiting LTC placement Quality Stroke Does the patient have a stroke diagnosis?: No VTE Prior VTE?: No VTE Risk Level:: Medical - moderate - high VTE Device Contraindication: N/A - Device Ordered VTE Drug Contraindication: N/A - Med Ordered
[2021-09-25 15:41] VITALS: BP 131/65; PULSE 70; RESP 18; TEMP 36.6; O2SAT 96
[2021-09-25] MEDS: OLANZapine 5 MG TABLET PO (20:24)
[2021-09-25] MEDS: traZODone HCL 50 MG TABLET PO (20:24)
[2021-09-26] VITALS: BP 131/69; PULSE 60; RESP 17; TEMP 36.6; O2SAT 95
[2021-09-26 07:13] VITALS: BP 123/72; PULSE 64; RESP 18; TEMP 36.1; O2SAT 98
[2021-09-26] MEDS: Ascorbic Acid 500 MG TABLET PO (08:33)
[2021-09-26] MEDS: Sennosides 8.6 MG TABLET PO (08:33)
--- NOTE | 2021-09-26 10:51 | HO.PM.IMPN ---
Subjective Subjective Date of Service: 09/26/21 Interval History: no compliants Cardiovascular Cardiovascular: Reports no additional cardiovascular complaints Respiratory Respiratory: Reports no additional respiratory complaints Physical Exam Vital Signs: Vital Signs: Last Vital Signs Temp 96.9 F 09/26/21 07:13 Pulse 64 09/26/21 07:13 Resp 18 09/26/21 07:13 BP 123/72 09/26/21 07:13 Pulse Ox 98 09/26/21 07:13 BMI result Body Mass Index 22.1 Constitutional : sleepy, disoriented at baseline not in distress Neck : Normal inspection, Supple Respiratory :? Chest moving bilaterally, no respiratory distress Neurological : Alert & disoriented, No focal deficit Objective Data Active Medications Ascorbic Acid (Ascorbic Acid 500 Mg Tablet) 500 mg PO DAILY [facility] Last Admin: 09/26/21 08:33 Dose: 500 mg Documented by: DANITA Guaifenesin/Dextromethorphan (Guaifenesin Dm 100/10/5 Ml 5 Ml Syrup) 10 ml PO Q6H PRN PRN Reason: cough Hydroxyzine HCl (Hydroxyzine Hcl 25 Mg Tablet) 25 mg PO Q6H PRN PRN Reason: agitation Last Admin: 09/16/21 21:52 Dose: 25 mg Documented by: MELODY Olanzapine (Olanzapine 5 Mg Tablet) 5 mg PO BEDTIME [facility] Last Admin: 09/25/21 20:24 Dose: 5 mg Documented by: ARELY Quetiapine Fumarate (Quetiapine Fumarate 25 Mg Tablet) 25 mg PO DAILY@1700 PRN PRN Reason: anxiety/restlessness Last Admin: 09/17/21 17:03 Dose: 25 mg Documented by: GOLDEN Senna (Sennosides 8.6 Mg Tablet) 8.6 mg PO DAILY [facility] Last Admin: 09/26/21 08:33 Dose: 8.6 mg Documented by: DANITA Trazodone HCl (Trazodone Hcl 50 Mg Tablet) 50 mg PO BEDTIME [facility] Last Admin: 09/25/21 20:24 Dose: 50 mg Documented by: ARELY Labs CBC & Chem 7: 09/07/21 05:36 09/07/21 05:36 Assessment and Plan (1) Dementia with behavioral disturbance: Status: Acute Plan 75 yo M who presented to the ED on 05/23/21 for AMS and failure to thrive. He was initially going to be placed at a facility, but on 05/29 was noted to have cough and a CXR revealed a new R base infiltrate concerning for aspiration pneumonia; has completed Abx course and now awaiting placement, received COVID vaccine developed symptomatic Covid-19 infection 08/17/21 without hypoxia Covid-19 infection resolved dementia with behavioral disturbances Use Seroquel as needed, redirection No behavioral issues noted in last several days patient has no capacity, continue current psych meds aspiration pneumonia no recurrent episode,completed treatment continue nectar thick and ground/mech [NDD2] diet suspected scabies treated with permethrin x 2 doses, no new rash noted stage 2 pressure ucler (L heel / M medial heel) and stage I bilateral buttock- present on admission continue wound care foam dressing to heel, continue barrier cream, + air loss bed + high-protein diet (on supplements) dispo awaiting LTC placement Quality Stroke Does the patient have a stroke diagnosis?: No VTE Prior VTE?: No VTE Risk Level:: Medical - moderate - high VTE Device Contraindication: N/A - Device Ordered VTE Drug Contraindication: N/A - Med Ordered
[2021-09-26 16:00] VITALS: BP 150/72; PULSE 70; RESP 18; TEMP 36.4; O2SAT 98
[2021-09-26] MEDS: traZODone HCL 50 MG TABLET PO (20:27)
[2021-09-26] MEDS: OLANZapine 5 MG TABLET PO (20:27)
[2021-09-26 23:32] VITALS: BP 156/73; PULSE 59; RESP 16; TEMP 36; O2SAT 94
[2021-09-27 07:04] VITALS: BP 112/59; PULSE 85; RESP 18; TEMP 36; O2SAT 96
[2021-09-27] MEDS: Ascorbic Acid 500 MG TABLET PO (08:48)
[2021-09-27] MEDS: Sennosides 8.6 MG TABLET PO (08:48)
--- NOTE | 2021-09-27 10:15 | HO.PM.IMPN ---
Subjective Subjective Date of Service: 09/27/21 Interval History: no complaints Cardiovascular Cardiovascular: Reports no additional cardiovascular complaints Respiratory Respiratory: Reports no additional respiratory complaints Physical Exam Vital Signs: Vital Signs: Last Vital Signs Temp 96.8 F 09/27/21 07:04 Pulse 85 09/27/21 07:04 Resp 18 09/27/21 07:04 BP 112/59 L 09/27/21 07:04 Pulse Ox 96 09/27/21 07:04 BMI result Body Mass Index 22.1 Constitutional : sleepy, disoriented at baseline not in distress Neck : Normal inspection, Supple Respiratory :? Chest moving bilaterally, no respiratory distress Neurological : Alert & disoriented, No focal deficit Objective Data Active Medications Ascorbic Acid (Ascorbic Acid 500 Mg Tablet) 500 mg PO DAILY [facility] Last Admin: 09/27/21 08:48 Dose: 500 mg Documented by: DANITA Guaifenesin/Dextromethorphan (Guaifenesin Dm 100/10/5 Ml 5 Ml Syrup) 10 ml PO Q6H PRN PRN Reason: cough Hydroxyzine HCl (Hydroxyzine Hcl 25 Mg Tablet) 25 mg PO Q6H PRN PRN Reason: agitation Last Admin: 09/16/21 21:52 Dose: 25 mg Documented by: MELODY Olanzapine (Olanzapine 5 Mg Tablet) 5 mg PO BEDTIME [facility] Last Admin: 09/26/21 20:27 Dose: 5 mg Documented by: CLARENCE Quetiapine Fumarate (Quetiapine Fumarate 25 Mg Tablet) 25 mg PO DAILY@1700 PRN PRN Reason: anxiety/restlessness Last Admin: 09/17/21 17:03 Dose: 25 mg Documented by: GOLDEN Senna (Sennosides 8.6 Mg Tablet) 8.6 mg PO DAILY [facility] Last Admin: 09/27/21 08:48 Dose: 8.6 mg Documented by: DANITA Trazodone HCl (Trazodone Hcl 50 Mg Tablet) 50 mg PO BEDTIME [facility] Last Admin: 09/26/21 20:27 Dose: 50 mg Documented by: CLARENCE Labs CBC & Chem 7: 09/07/21 05:36 09/07/21 05:36 Assessment and Plan (1) Dementia with behavioral disturbance: Status: Acute Plan 75 yo M who presented to the ED on 05/23/21 for AMS and failure to thrive. He was initially going to be placed at a facility, but on 05/29 was noted to have cough and a CXR revealed a new R base infiltrate concerning for aspiration pneumonia; has completed Abx course and now awaiting placement, received COVID vaccine developed symptomatic Covid-19 infection 08/17/21 without hypoxia Covid-19 infection resolved dementia with behavioral disturbances Use Seroquel as needed, redirection No behavioral issues noted in last several days patient has no capacity, continue current psych meds aspiration pneumonia no recurrent episode,completed treatment continue nectar thick and ground/mech [NDD2] diet suspected scabies treated with permethrin x 2 doses, no new rash noted stage 2 pressure ucler (L heel / M medial heel) and stage I bilateral buttock- present on admission continue wound care foam dressing to heel, continue barrier cream, + air loss bed + high-protein diet (on supplements) dispo awaiting LTC placement Quality Stroke Does the patient have a stroke diagnosis?: No VTE Prior VTE?: No VTE Risk Level:: Medical - moderate - high VTE Device Contraindication: N/A - Device Ordered VTE Drug Contraindication: N/A - Med Ordered
[2021-09-27 15:44] VITALS: BP 152/59; PULSE 88; RESP 18; TEMP 36.8; O2SAT 98
[2021-09-27] MEDS: QUEtiapine Fumarate 25 MG TABLET PO (18:46)
[2021-09-27] MEDS: traZODone HCL 50 MG TABLET PO (20:01)
[2021-09-27] MEDS: OLANZapine 5 MG TABLET PO (20:01)
[2021-09-28] VITALS: RESP 20
[2021-09-28 08:26] VITALS: BP 135/66; PULSE 57; RESP 20; TEMP 36.9; O2SAT 97
--- NOTE | 2021-09-28 08:51 | P.PNIM_ITS ---
Subjective Subjective Date of Service: 09/28/21 Interval History: no complaints Cardiovascular Cardiovascular: Reports no additional cardiovascular complaints Respiratory Respiratory: Reports no additional respiratory complaints Physical Exam Vital Signs: Vital Signs: Last Vital Signs Temp 98.5 F 09/28/21 08:26 Pulse 57 09/28/21 08:26 Resp 20 09/28/21 08:26 BP 135/66 09/28/21 08:26 Pulse Ox 97 09/28/21 08:26 BMI result Body Mass Index 22.1 Constitutional : sleepy, disoriented at baseline not in distress Neck : Normal inspection, Supple Respiratory :? Chest moving bilaterally, no respiratory distress Neurological : Alert & disoriented, No focal deficit Objective Data Active Medications Ascorbic Acid (Ascorbic Acid 500 Mg Tablet) 500 mg PO DAILY [facility] Last Admin: 09/27/21 08:48 Dose: 500 mg Documented by: DANITA Guaifenesin/Dextromethorphan (Guaifenesin Dm 100/10/5 Ml 5 Ml Syrup) 10 ml PO Q6H PRN PRN Reason: cough Hydroxyzine HCl (Hydroxyzine Hcl 25 Mg Tablet) 25 mg PO Q6H PRN PRN Reason: agitation Last Admin: 09/16/21 21:52 Dose: 25 mg Documented by: MELODY Olanzapine (Olanzapine 5 Mg Tablet) 5 mg PO BEDTIME [facility] Last Admin: 09/27/21 20:01 Dose: 5 mg Documented by: CLARENCE Quetiapine Fumarate (Quetiapine Fumarate 25 Mg Tablet) 25 mg PO DAILY@1700 PRN PRN Reason: anxiety/restlessness Last Admin: 09/27/21 18:46 Dose: 25 mg Documented by: DANITA Senna (Sennosides 8.6 Mg Tablet) 8.6 mg PO DAILY [facility] Last Admin: 09/27/21 08:48 Dose: 8.6 mg Documented by: DANITA Trazodone HCl (Trazodone Hcl 50 Mg Tablet) 50 mg PO BEDTIME [facility] Last Admin: 09/27/21 20:01 Dose: 50 mg Documented by: CLARENCE Labs CBC & Chem 7: 09/07/21 05:36 09/07/21 05:36 Assessment and Plan (1) Dementia with behavioral disturbance: Status: Acute Plan 75 yo M who presented to the ED on 05/23/21 for AMS and failure to thrive. He was initially going to be placed at a facility, but on 05/29 was noted to have cough and a CXR revealed a new R base infiltrate concerning for aspiration pneumonia; has completed Abx course and now awaiting placement, received COVID vaccine developed symptomatic Covid-19 infection 08/17/21 without hypoxia Covid-19 infection resolved dementia with behavioral disturbances Use Seroquel as needed, redirection No behavioral issues noted in last several days patient has no capacity, continue current psych meds aspiration pneumonia no recurrent episode,completed treatment continue nectar thick and ground/mech [NDD2] diet suspected scabies treated with permethrin x 2 doses, no new rash noted stage 2 pressure ucler (L heel / M medial heel) and stage I bilateral buttock- present on admission continue wound care foam dressing to heel, continue barrier cream, + air loss bed + high-protein diet (on supplements) dispo awaiting LTC placement Quality Stroke Does the patient have a stroke diagnosis?: No VTE Prior VTE?: No VTE Risk Level:: Medical - moderate - high VTE Device Contraindication: N/A - Device Ordered VTE Drug Contraindication: N/A - Med Ordered
[2021-09-28] MEDS: Ascorbic Acid 500 MG TABLET PO (09:06)
[2021-09-28] MEDS: Sennosides 8.6 MG TABLET PO (09:06)
[2021-09-28 15:57] VITALS: BP 142/71; PULSE 67; RESP 18; TEMP 36.8; O2SAT 96
[2021-09-28] MEDS: OLANZapine 5 MG TABLET PO (20:21)
[2021-09-28] MEDS: traZODone HCL 50 MG TABLET PO (20:21)
[2021-09-29 06:54] VITALS: BP 116/63; PULSE 56; RESP 18; TEMP 36.3; O2SAT 97
--- NOTE | 2021-09-29 09:08 | P.PNIM_ITS ---
Subjective Subjective Date of Service: 09/29/21 Interval History: no complaints Cardiovascular Cardiovascular: Reports no additional cardiovascular complaints Respiratory Respiratory: Reports no additional respiratory complaints Physical Exam Vital Signs: Vital Signs: Last Vital Signs Temp 97.3 F 09/29/21 06:54 Pulse 56 09/29/21 06:54 Resp 18 09/29/21 06:54 BP 116/63 09/29/21 06:54 Pulse Ox 97 09/29/21 06:54 BMI result Body Mass Index 22.1 Constitutional : sleepy, disoriented at baseline not in distress Neck : Normal inspection, Supple Respiratory :? Chest moving bilaterally, no respiratory distress Neurological : Alert & disoriented, No focal deficit Objective Data Active Medications Ascorbic Acid (Ascorbic Acid 500 Mg Tablet) 500 mg PO DAILY [facility] Last Admin: 09/28/21 09:06 Dose: 500 mg Documented by: GOLDEN Guaifenesin/Dextromethorphan (Guaifenesin Dm 100/10/5 Ml 5 Ml Syrup) 10 ml PO Q6H PRN PRN Reason: cough Hydroxyzine HCl (Hydroxyzine Hcl 25 Mg Tablet) 25 mg PO Q6H PRN PRN Reason: agitation Last Admin: 09/16/21 21:52 Dose: 25 mg Documented by: MELODY Olanzapine (Olanzapine 5 Mg Tablet) 5 mg PO BEDTIME [facility] Last Admin: 09/28/21 20:21 Dose: 5 mg Documented by: MELODY Quetiapine Fumarate (Quetiapine Fumarate 25 Mg Tablet) 25 mg PO DAILY@1700 PRN PRN Reason: anxiety/restlessness Last Admin: 09/27/21 18:46 Dose: 25 mg Documented by: DANITA Senna (Sennosides 8.6 Mg Tablet) 8.6 mg PO DAILY [facility] Last Admin: 09/28/21 09:06 Dose: 8.6 mg Documented by: GOLDEN Trazodone HCl (Trazodone Hcl 50 Mg Tablet) 50 mg PO BEDTIME [facility] Last Admin: 09/28/21 20:21 Dose: 50 mg Documented by: MELODY Labs CBC & Chem 7: 09/07/21 05:36 09/07/21 05:36 Assessment and Plan (1) Dementia with behavioral disturbance: Status: Acute Plan 75 yo M who presented to the ED on 05/23/21 for AMS and failure to thrive. He was initially going to be placed at a facility, but on 05/29 was noted to have cough and a CXR revealed a new R base infiltrate concerning for aspiration pneumonia; has completed Abx course and now awaiting placement, received COVID vaccine developed symptomatic Covid-19 infection 08/17/21 without hypoxia Covid-19 infection resolved dementia with behavioral disturbances Use Seroquel as needed, redirection No behavioral issues noted in last several days patient has no capacity, continue current psych meds aspiration pneumonia no recurrent episode,completed treatment continue nectar thick and ground/mech [NDD2] diet suspected scabies treated with permethrin x 2 doses, no new rash noted stage 2 pressure ucler (L heel / M medial heel) and stage I bilateral buttock- present on admission continue wound care foam dressing to heel, continue barrier cream, + air loss bed + high-protein diet (on supplements) dispo awaiting LTC placement Quality Stroke Does the patient have a stroke diagnosis?: No VTE Prior VTE?: No VTE Risk Level:: Medical - moderate - high VTE Device Contraindication: N/A - Device Ordered VTE Drug Contraindication: N/A - Med Ordered
[2021-09-29] MEDS: Sennosides 8.6 MG TABLET PO (09:40)
[2021-09-29] MEDS: Ascorbic Acid 500 MG TABLET PO (09:40)
[2021-09-29 15:34] VITALS: BP 142/70; PULSE 70; RESP 15; TEMP 36.7; O2SAT 96
[2021-09-29] MEDS: OLANZapine 5 MG TABLET PO (19:56)
[2021-09-29] MEDS: traZODone HCL 50 MG TABLET PO (19:56)
[2021-09-29 23:44] VITALS: BP 149/77; PULSE 65; RESP 16; TEMP 36.6; O2SAT 97
[2021-09-30 07:43] VITALS: BP 126/65; PULSE 60; RESP 18; TEMP 36.7; O2SAT 96
--- NOTE | 2021-09-30 08:21 | HO.PM.IMPN ---
Subjective Subjective Date of Service: 09/30/21 Interval History: no compalints Cardiovascular Cardiovascular: Reports no additional cardiovascular complaints Respiratory Respiratory: Reports no additional respiratory complaints Physical Exam Vital Signs: Vital Signs: Last Vital Signs Temp 98.1 F 09/30/21 07:43 Pulse 60 09/30/21 07:43 Resp 18 09/30/21 07:43 BP 126/65 09/30/21 07:43 Pulse Ox 96 09/30/21 07:43 BMI result Body Mass Index 22.1 Constitutional : sleepy, disoriented at baseline not in distress Neck : Normal inspection, Supple Respiratory :? Chest moving bilaterally, no respiratory distress Neurological : Alert & disoriented, No focal deficit Objective Data Active Medications Ascorbic Acid (Ascorbic Acid 500 Mg Tablet) 500 mg PO DAILY COUNTS INCLUDE 234 BEDS AT THE [facility] Last Admin: 09/29/21 09:40 Dose: 500 mg Documented by: GOLDEN Guaifenesin/Dextromethorphan (Guaifenesin Dm 100/10/5 Ml 5 Ml Syrup) 10 ml PO Q6H PRN PRN Reason: cough Hydroxyzine HCl (Hydroxyzine Hcl 25 Mg Tablet) 25 mg PO Q6H PRN PRN Reason: agitation Last Admin: 09/16/21 21:52 Dose: 25 mg Documented by: MELODY Olanzapine (Olanzapine 5 Mg Tablet) 5 mg PO BEDTIME COUNTS INCLUDE 234 BEDS AT THE [facility] Last Admin: 09/29/21 19:56 Dose: 5 mg Documented by: MELODY Quetiapine Fumarate (Quetiapine Fumarate 25 Mg Tablet) 25 mg PO DAILY@1700 PRN PRN Reason: anxiety/restlessness Last Admin: 09/27/21 18:46 Dose: 25 mg Documented by: DANITA Senna (Sennosides 8.6 Mg Tablet) 8.6 mg PO DAILY COUNTS INCLUDE 234 BEDS AT THE [facility] Last Admin: 09/29/21 09:40 Dose: 8.6 mg Documented by: GOLDEN Trazodone HCl (Trazodone Hcl 50 Mg Tablet) 50 mg PO BEDTIME COUNTS INCLUDE 234 BEDS AT THE [facility] Last Admin: 09/29/21 19:56 Dose: 50 mg Documented by: MELODY Labs CBC & Chem 7: 09/07/21 05:36 09/07/21 05:36 Assessment and Plan (1) Dementia with behavioral disturbance: Status: Acute Plan 75 yo M who presented to the ED on 05/23/21 for AMS and failure to thrive. He was initially going to be placed at a facility, but on 05/29 was noted to have cough and a CXR revealed a new R base infiltrate concerning for aspiration pneumonia; has completed Abx course and now awaiting placement, received COVID vaccine developed symptomatic Covid-19 infection 08/17/21 without hypoxia Covid-19 infection resolved dementia with behavioral disturbances Use Seroquel as needed, redirection No behavioral issues noted in last several days patient has no capacity, continue current psych meds aspiration pneumonia no recurrent episode,completed treatment continue nectar thick and ground/mech [NDD2] diet suspected scabies treated with permethrin x 2 doses, no new rash noted stage 2 pressure ucler (L heel / M medial heel) and stage I bilateral buttock- present on admission continue wound care foam dressing to heel, continue barrier cream, + air loss bed + high-protein diet (on supplements) dispo awaiting LTC placement Quality Stroke Does the patient have a stroke diagnosis?: No VTE Prior VTE?: No VTE Risk Level:: Medical - moderate - high VTE Device Contraindication: N/A - Device Ordered VTE Drug Contraindication: N/A - Med Ordered
[2021-09-30] MEDS: Ascorbic Acid 500 MG TABLET PO (08:45)
[2021-09-30] MEDS: Sennosides 8.6 MG TABLET PO (08:45)
[2021-09-30 15:48] VITALS: BP 148/71; PULSE 66; RESP 17; TEMP 36.6; O2SAT 98
[2021-09-30] MEDS: OLANZapine 5 MG TABLET PO (20:43)
[2021-09-30] MEDS: traZODone HCL 50 MG TABLET PO (20:43)
[2021-09-30] MEDS: QUEtiapine Fumarate 25 MG TABLET PO (20:43)
[2021-09-30 23:35] VITALS: BP 141/79; PULSE 72; RESP 14; TEMP 36.6; O2SAT 96
[2021-10-01 08:00] VITALS: BP 137/64; PULSE 56; RESP 18; TEMP 36.1; O2SAT 94
--- NOTE | 2021-10-01 08:30 | HO.PM.IMPN ---
Subjective Subjective Date of Service: 10/01/21 Interval History: no complaints Cardiovascular Cardiovascular: Reports no additional cardiovascular complaints Respiratory Respiratory: Reports no additional respiratory complaints Physical Exam Vital Signs: Vital Signs: Last Vital Signs Temp 97.8 F 09/30/21 23:35 Pulse 72 09/30/21 23:35 Resp 14 09/30/21 23:35 BP 141/79 H 09/30/21 23:35 Pulse Ox 96 09/30/21 23:35 BMI result Body Mass Index 22.1 Constitutional : sleepy, disoriented at baseline not in distress Neck : Normal inspection, Supple Respiratory :? Chest moving bilaterally, no respiratory distress Neurological : Alert & disoriented, No focal deficit Objective Data Active Medications Ascorbic Acid (Ascorbic Acid 500 Mg Tablet) 500 mg PO DAILY [facility] Last Admin: 09/30/21 08:45 Dose: 500 mg Documented by: GOLDEN Guaifenesin/Dextromethorphan (Guaifenesin Dm 100/10/5 Ml 5 Ml Syrup) 10 ml PO Q6H PRN PRN Reason: cough Hydroxyzine HCl (Hydroxyzine Hcl 25 Mg Tablet) 25 mg PO Q6H PRN PRN Reason: agitation Last Admin: 09/16/21 21:52 Dose: 25 mg Documented by: MELODY Olanzapine (Olanzapine 5 Mg Tablet) 5 mg PO BEDTIME [facility] Last Admin: 09/30/21 20:43 Dose: 5 mg Documented by: SYLVIA Quetiapine Fumarate (Quetiapine Fumarate 25 Mg Tablet) 25 mg PO DAILY@1700 PRN PRN Reason: anxiety/restlessness Last Admin: 09/30/21 20:43 Dose: 25 mg Documented by: SYLVIA Senna (Sennosides 8.6 Mg Tablet) 8.6 mg PO DAILY [facility] Last Admin: 09/30/21 08:45 Dose: 8.6 mg Documented by: GOLDEN Trazodone HCl (Trazodone Hcl 50 Mg Tablet) 50 mg PO BEDTIME [facility] Last Admin: 09/30/21 20:43 Dose: 50 mg Documented by: SYLVIA Labs CBC & Chem 7: 09/07/21 05:36 09/07/21 05:36 Assessment and Plan (1) Dementia with behavioral disturbance: Status: Acute Plan 75 yo M who presented to the ED on 05/23/21 for AMS and failure to thrive. He was initially going to be placed at a facility, but on 05/29 was noted to have cough and a CXR revealed a new R base infiltrate concerning for aspiration pneumonia; has completed Abx course and now awaiting placement, received COVID vaccine developed symptomatic Covid-19 infection 08/17/21 without hypoxia Covid-19 infection resolved dementia with behavioral disturbances Use Seroquel as needed, redirection No behavioral issues noted in last several days patient has no capacity, continue current psych meds aspiration pneumonia no recurrent episode,completed treatment continue nectar thick and ground/mech [NDD2] diet suspected scabies treated with permethrin x 2 doses, no new rash noted stage 2 pressure ucler (L heel / M medial heel) and stage I bilateral buttock- present on admission continue wound care foam dressing to heel, continue barrier cream, + air loss bed + high-protein diet (on supplements) dispo awaiting LTC placement Quality Stroke Does the patient have a stroke diagnosis?: No VTE Prior VTE?: No VTE Risk Level:: Medical - moderate - high VTE Device Contraindication: N/A - Device Ordered VTE Drug Contraindication: N/A - Med Ordered
--- NOTE | 2021-10-01 13:29 | MHC.CM.PN ---
EMR REVIEWED, PT REMAINS MEDICALLY CLEARED FOR D/C, CM ATTEMPTED TO CONTACT PT'S GUARDIAN/CONSERVATOR SACHIN KAT [phone], NO ANSWER AND MESSAGE LEFT W/REQUEST FOR UPDATE ON STATUS ON MH CHUCK AND CM'S FAX NUMBER SO WE CAN SEND MH CHUCK TO FACILITY ONCE ONE IS WILLING TO ACCEPT PT. CONSERVATOR/GUARDIAN DOES REQUEST WE KEEP PT AND TOGETHER IF POSSIBLE AND CLOSE TO [facility], HOWEVER UNSURE HOW LIKELY THIS IS PT WILL LIKELY NEED A LOCKED DEMENTIA UNIT, CM WILL CONT TO FOLLOW D/C NEEDS.
[2021-10-01 16:00] VITALS: BP 97/56; PULSE 67; RESP 17; TEMP 36.8; O2SAT 97
[2021-10-01 20:18] VITALS: BP 167/76; PULSE 71; RESP 18; TEMP 36.1; O2SAT 95
[2021-10-01] MEDS: traZODone HCL 50 MG TABLET PO (20:27)
[2021-10-01] MEDS: OLANZapine 5 MG TABLET PO (20:27)
[2021-10-01 23:15] VITALS: BP 155/74; PULSE 70; RESP 16; TEMP 36.9; O2SAT 96
[2021-10-02 07:17] VITALS: BP 122/64; PULSE 72; RESP 18; TEMP 36.6; O2SAT 97
--- NOTE | 2021-10-02 09:09 | P.PNIM_ITS ---
Subjective Subjective Date of Service: 10/02/21 Interval History: no complaints Cardiovascular Cardiovascular: Reports no additional cardiovascular complaints Respiratory Respiratory: Reports no additional respiratory complaints Physical Exam Vital Signs: Vital Signs: Last Vital Signs Temp 97.8 F 10/02/21 07:17 Pulse 72 10/02/21 07:17 Resp 18 10/02/21 07:17 BP 122/64 10/02/21 07:17 Pulse Ox 97 10/02/21 07:17 BMI result Body Mass Index 22.1 Constitutional : sleepy, disoriented at baseline not in distress Neck : Normal inspection, Supple Respiratory :? Chest moving bilaterally, no respiratory distress Neurological : Alert & disoriented, No focal deficit Objective Data Active Medications Ascorbic Acid (Ascorbic Acid 500 Mg Tablet) 500 mg PO DAILY [facility] Last Admin: 10/01/21 12:40 Dose: Not Given Documented by: ROBERT Non-Admin Reason: lethargic Guaifenesin/Dextromethorphan (Guaifenesin Dm 100/10/5 Ml 5 Ml Syrup) 10 ml PO Q6H PRN PRN Reason: cough Hydroxyzine HCl (Hydroxyzine Hcl 25 Mg Tablet) 25 mg PO Q6H PRN PRN Reason: agitation Last Admin: 09/16/21 21:52 Dose: 25 mg Documented by: MELODY Olanzapine (Olanzapine 5 Mg Tablet) 5 mg PO BEDTIME [facility] Last Admin: 10/01/21 20:27 Dose: 5 mg Documented by: SYLVIA Quetiapine Fumarate (Quetiapine Fumarate 25 Mg Tablet) 25 mg PO DAILY@1700 PRN PRN Reason: anxiety/restlessness Last Admin: 09/30/21 20:43 Dose: 25 mg Documented by: SYLVIA Trazodone HCl (Trazodone Hcl 50 Mg Tablet) 50 mg PO BEDTIME [facility] Last Admin: 10/01/21 20:27 Dose: 50 mg Documented by: SYLVIA Labs CBC & Chem 7: 09/07/21 05:36 09/07/21 05:36 Assessment and Plan (1) Dementia with behavioral disturbance: Status: Acute Plan 75 yo M who presented to the ED on 05/23/21 for AMS and failure to thrive. He was initially going to be placed at a facility, but on 05/29 was noted to have cough and a CXR revealed a new R base infiltrate concerning for aspiration pneumonia; has completed Abx course and now awaiting placement, received COVID vaccine developed symptomatic Covid-19 infection 08/17/21 without hypoxia Covid-19 infection resolved dementia with behavioral disturbances Use Seroquel as needed, redirection No behavioral issues noted in last several days patient has no capacity, continue current psych meds aspiration pneumonia no recurrent episode,completed treatment continue nectar thick and ground/mech [NDD2] diet suspected scabies treated with permethrin x 2 doses, no new rash noted stage 2 pressure ucler (L heel / M medial heel) and stage I bilateral buttock- present on admission continue wound care foam dressing to heel, continue barrier cream, + air loss bed + high-protein diet (on supplements) dispo awaiting LTC placement Quality Stroke Does the patient have a stroke diagnosis?: No VTE Prior VTE?: No VTE Risk Level:: Medical - moderate - high VTE Device Contraindication: N/A - Device Ordered VTE Drug Contraindication: N/A - Med Ordered
[2021-10-02] MEDS: Ascorbic Acid 500 MG TABLET PO (13:00)
[2021-10-02 15:13] VITALS: BP 120/59; PULSE 62; RESP 18; TEMP 37; O2SAT 94
[2021-10-02] MEDS: QUEtiapine Fumarate 25 MG TABLET PO (17:10)
[2021-10-02] MEDS: OLANZapine 5 MG TABLET PO (19:42)
[2021-10-02] MEDS: traZODone HCL 50 MG TABLET PO (19:42)
[2021-10-03] VITALS: BP 135/76; PULSE 68; RESP 18; TEMP 36.9; O2SAT 98
--- NOTE | 2021-10-03 08:57 | P.PNIM_ITS ---
Subjective Subjective Date of Service: 10/03/21 Interval History: no complaints Cardiovascular Cardiovascular: Reports no additional cardiovascular complaints Respiratory Respiratory: Reports no additional respiratory complaints Physical Exam Vital Signs: Vital Signs: Last Vital Signs Temp 98.5 F 10/03/21 00:00 Pulse 68 10/03/21 00:00 Resp 18 10/03/21 00:00 BP 135/76 10/03/21 00:00 Pulse Ox 98 10/03/21 00:00 BMI result Body Mass Index 22.1 Constitutional : sleepy, disoriented at baseline not in distress Neck : Normal inspection, Supple Respiratory :? Chest moving bilaterally, no respiratory distress Neurological : Alert & disoriented, No focal deficit Objective Data Active Medications Ascorbic Acid (Ascorbic Acid 500 Mg Tablet) 500 mg PO DAILY [facility] Last Admin: 10/02/21 13:00 Dose: 500 mg Documented by: DANITA Guaifenesin/Dextromethorphan (Guaifenesin Dm 100/10/5 Ml 5 Ml Syrup) 10 ml PO Q6H PRN PRN Reason: cough Hydroxyzine HCl (Hydroxyzine Hcl 25 Mg Tablet) 25 mg PO Q6H PRN PRN Reason: agitation Last Admin: 09/16/21 21:52 Dose: 25 mg Documented by: MELODY Olanzapine (Olanzapine 5 Mg Tablet) 5 mg PO BEDTIME [facility] Last Admin: 10/02/21 19:42 Dose: 5 mg Documented by: MELODY Quetiapine Fumarate (Quetiapine Fumarate 25 Mg Tablet) 25 mg PO DAILY@1700 PRN PRN Reason: anxiety/restlessness Last Admin: 10/02/21 17:10 Dose: 25 mg Documented by: DANITA Trazodone HCl (Trazodone Hcl 50 Mg Tablet) 50 mg PO BEDTIME [facility] Last Admin: 10/02/21 19:42 Dose: 50 mg Documented by: MELODY Labs CBC & Chem 7: 09/07/21 05:36 09/07/21 05:36 Assessment and Plan (1) Dementia with behavioral disturbance: Status: Acute Plan 75 yo M who presented to the ED on 05/23/21 for AMS and failure to thrive. He was initially going to be placed at a facility, but on 05/29 was noted to have cough and a CXR revealed a new R base infiltrate concerning for aspiration pne umonia; has completed Abx course and now awaiting placement, received COVID vaccine developed symptomatic Covid-19 infection 08/17/21 without hypoxia Covid-19 infection resolved dementia with behavioral disturbances Use Seroquel as needed, redirection No behavioral issues noted in last several days patient has no capacity, continue current psych meds aspiration pneumonia no recurrent episode,completed treatment continue nectar thick and ground/mech [NDD2] diet suspected scabies treated with permethrin x 2 doses, no new rash noted stage 2 pressure ucler (L heel / M medial heel) and stage I bilateral buttock- present on admission continue wound care foam dressing to heel, continue barrier cream, + air loss bed + high-protein diet (on supplements) dispo awaiting LTC placement Quality Stroke Does the patient have a stroke diagnosis?: No VTE Prior VTE?: No VTE Risk Level:: Medical - moderate - high VTE Device Contraindication: N/A - Device Ordered VTE Drug Contraindication: N/A - Med Ordered
--- NOTE | 2021-10-03 09:07 | MHC.CM.PN ---
EMR REVIEWED, PT REMAINS MEDICALLY CLEARED, CM RECEIVED MESSAGE FROM GUARDIAN/CONSERVATOR NOTING THAT PT'S MH CHUCK IS PENDING AND A SPEND DOWN NEEDS TO BE DONE PRIOR TO FINAL APPROVAL, CM WILL CON'T TO FOLLOW D/C NEEDS.
[2021-10-03 09:30] VITALS: BP 142/70; PULSE 64
[2021-10-03] MEDS: Ascorbic Acid 500 MG TABLET PO (10:14)
[2021-10-03 15:08] VITALS: BP 127/58; PULSE 63; RESP 18; TEMP 36.4; O2SAT 95
[2021-10-03] MEDS: OLANZapine 5 MG TABLET PO (19:53)
[2021-10-03] MEDS: traZODone HCL 50 MG TABLET PO (19:53)
[2021-10-04] VITALS: BP 117/64; PULSE 64; RESP 15; TEMP 36.7; O2SAT 95
[2021-10-04 07:57] VITALS: BP 121/85; PULSE 66; RESP 15; TEMP 36.4; O2SAT 98
[2021-10-04] MEDS: Ascorbic Acid 500 MG TABLET PO (08:30)
--- NOTE | 2021-10-04 12:36 | P.PNIM_ITS ---
Subjective Subjective Date of Service: 10/04/21 Interval History: Laying in the bed, looks comfortable not in distress No reported other overnight events. Systemic review: No fever, chills or weakness No chest pain, palpitation No shortness of breath or coughing No abdominal pain, nausea or vomiting Physical Exam Vital Signs: Vital Signs: Last Vital Signs Temp 97.5 F 10/04/21 07:57 Pulse 66 10/04/21 07:57 Resp 15 10/04/21 07:57 BP 121/85 10/04/21 07:57 Pulse Ox 98 10/04/21 07:57 BMI result Body Mass Index 22.1 Const: Other: Constitutional : interactive upon waking up, disoriented at baseline not in distress Neck : Normal inspection, Supple Respiratory : Chest moving bilaterally, no respiratory distress Neurological : Alert & disoriented, No focal deficit Objective Data Active Medications Ascorbic Acid (Ascorbic Acid 500 Mg Tablet) 500 mg PO DAILY [facility] Last Admin: 10/04/21 08:30 Dose: 500 mg Documented by: WANDY Guaifenesin/Dextromethorphan (Guaifenesin Dm 100/10/5 Ml 5 Ml Syrup) 10 ml PO Q6H PRN PRN Reason: cough Hydroxyzine HCl (Hydroxyzine Hcl 25 Mg Tablet) 25 mg PO Q6H PRN PRN Reason: agitation Last Admin: 09/16/21 21:52 Dose: 25 mg Documented by: MELODY Olanzapine (Olanzapine 5 Mg Tablet) 5 mg PO BEDTIME [facility] Last Admin: 10/03/21 19:53 Dose: 5 mg Documented by: MELODY Quetiapine Fumarate (Quetiapine Fumarate 25 Mg Tablet) 25 mg PO DAILY@1700 PRN PRN Reason: anxiety/restlessness Last Admin: 10/02/21 17:10 Dose: 25 mg Documented by: DANITA Trazodone HCl (Trazodone Hcl 50 Mg Tablet) 50 mg PO BEDTIME [facility] Last Admin: 10/03/21 19:53 Dose: 50 mg Documented by: MELODY Labs CBC & Chem 7: 09/07/21 05:36 09/07/21 05:36 Assessment and Plan (1) Dementia with behavioral disturbance: Status: Acute Plan 75 yo M who presented to the ED on 05/23/21 for AMS and failure to thrive. He was initially going to be placed at a facility, but on 05/29 was noted to have cough and a CXR revealed a new R base infiltrate concerning for aspiration pneumonia; has completed Abx course and now awaiting placement, received COVID vaccine developed symptomatic Covid-19 infection 08/17/21 without hypoxia Covid-19 infection resolved dementia with behavioral disturbances Use Seroquel as needed, redirection No behavioral issues noted in last several days patient has no capacity, continue current psych meds aspiration pneumonia no recurrent episode,completed treatment continue nectar thick and ground/mech [NDD2] diet suspected scabies treated with permethrin x 2 doses, no new rash noted stage 2 pressure ucler (L heel / M medial heel) and stage I bilateral buttock- present on admission continue wound care foam dressing to heel, continue barrier cream, + air loss bed + high-protein diet (on supplements) dispo awaiting LTC placement Quality Stroke Does the patient have a stroke diagnosis?: No VTE Prior VTE?: No VTE Risk Level:: Medical - moderate - high VTE Device Contraindication: N/A - Device Ordered VTE Drug Contraindication: N/A - Med Ordered
[2021-10-04 15:43] VITALS: BP 132/71; PULSE 89; RESP 20; TEMP 37.1; O2SAT 97
[2021-10-04] MEDS: OLANZapine 5 MG TABLET PO (20:15)
[2021-10-04] MEDS: traZODone HCL 50 MG TABLET PO (20:15)
[2021-10-04 20:58] VITALS: BP 105/55; PULSE 67; RESP 16; TEMP 36.2; O2SAT 97
[2021-10-05 08:00] VITALS: BP 145/67; PULSE 67; RESP 18; TEMP 36.4; O2SAT 96
[2021-10-05] MEDS: Ascorbic Acid 500 MG TABLET PO (09:13)
--- NOTE | 2021-10-05 12:07 | HO.PM.IMPN ---
Subjective Subjective Date of Service: 10/05/21 Interval History: Laying in the bed, looks comfortable not in distress No reported other overnight events. Systemic review: No fever, chills or weakness No chest pain, palpitation No shortness of breath or coughing No abdominal pain, nausea or vomiting Physical Exam Vital Signs: Vital Signs: Last Vital Signs Temp 97.5 F 10/05/21 08:00 Pulse 67 10/05/21 08:00 Resp 18 10/05/21 08:00 BP 145/67 H 10/05/21 08:00 Pulse Ox 96 10/05/21 08:00 BMI result Body Mass Index 22.1 Const: Other: Constitutional : interactive upon waking up, disoriented at baseline not in distress Neck : Normal inspection, Supple Respiratory : Chest moving bilaterally, no respiratory distress Neurological : Alert & disoriented, No focal deficit Objective Data Active Medications Ascorbic Acid (Ascorbic Acid 500 Mg Tablet) 500 mg PO DAILY [facility] Last Admin: 10/05/21 09:13 Dose: 500 mg Documented by: GOLDEN Guaifenesin/Dextromethorphan (Guaifenesin Dm 100/10/5 Ml 5 Ml Syrup) 10 ml PO Q6H PRN PRN Reason: cough Hydroxyzine HCl (Hydroxyzine Hcl 25 Mg Tablet) 25 mg PO Q6H PRN PRN Reason: agitation Last Admin: 09/16/21 21:52 Dose: 25 mg Documented by: MELODY Olanzapine (Olanzapine 5 Mg Tablet) 5 mg PO BEDTIME [facility] Last Admin: 10/04/21 20:15 Dose: 5 mg Documented by: JOSIAH Trazodone HCl (Trazodone Hcl 50 Mg Tablet) 50 mg PO BEDTIME [facility] Last Admin: 10/04/21 20:15 Dose: 50 mg Documented by: JOSIAH Labs CBC & Chem 7: 09/07/21 05:36 09/07/21 05:36 Assessment and Plan (1) Dementia with behavioral disturbance: Status: Acute Plan 75 yo M who presented to the ED on 05/23/21 for AMS and failure to thrive. He was initially going to be placed at a facility, but on 05/29 was noted to have cough and a CXR revealed a new R base infiltrate concerning for aspiration pneumonia; has completed Abx course and now awaiting placement, received COVID vaccine developed symptomatic Covid-19 infection 08/17/21 without hypoxia Covid-19 infection resolved dementia with behavioral disturbances Use Seroquel as needed, redirection No behavioral issues noted in last several days patient has no capacity, continue current psych meds aspiration pneumonia no recurrent episode,completed treatment continue nectar thick and ground/mech [NDD2] diet suspected scabies treated with permethrin x 2 doses, no new rash noted stage 2 pressure ucler (L heel / M medial heel) and stage I bilateral buttock- present on admission continue wound care foam dressing to heel, continue barrier cream, + air loss bed + high-protein diet (on supplements) dispo awaiting LTC placement Quality Stroke Does the patient have a stroke diagnosis?: No VTE Prior VTE?: No VTE Risk Level:: Medical - moderate - high VTE Device Contraindication: N/A - Device Ordered VTE Drug Contraindication: N/A - Med Ordered
[2021-10-05 16:00] VITALS: BP 159/74; PULSE 69; RESP 17; TEMP 36.2; O2SAT 96
[2021-10-05] MEDS: OLANZapine 5 MG TABLET PO (21:00)
[2021-10-05] MEDS: traZODone HCL 50 MG TABLET PO (21:00)
[2021-10-05 23:12] VITALS: BP 135/69; PULSE 59; RESP 14; TEMP 36.4; O2SAT 96
[2021-10-06 07:10] VITALS: BP 142/68; PULSE 105; RESP 18; TEMP 36.4; O2SAT 100
[2021-10-06] MEDS: Ascorbic Acid 500 MG TABLET PO (08:19)
--- NOTE | 2021-10-06 12:13 | P.PNIM_ITS ---
Subjective Subjective Date of Service: 10/06/21 Interval History: Laying in the bed, looks comfortable not in distress No reported other overnight events. Systemic review: No fever, chills or weakness No chest pain, palpitation No shortness of breath or coughing No abdominal pain, nausea or vomiting Physical Exam Vital Signs: Vital Signs: Last Vital Signs Temp 97.6 F 10/06/21 07:10 Pulse 105 H 10/06/21 07:10 Resp 18 10/06/21 07:10 BP 142/68 H 10/06/21 07:10 Pulse Ox 100 10/06/21 07:10 BMI result Body Mass Index 22.1 Const: Other: Constitutional : interactive upon waking up, disoriented at baseline not in distress Neck : Normal inspection, Supple Respiratory : Chest moving bilaterally, no respiratory distress Neurological : Alert & disoriented, No focal deficit Objective Data Active Medications Ascorbic Acid (Ascorbic Acid 500 Mg Tablet) 500 mg PO DAILY [facility] Last Admin: 10/06/21 08:19 Dose: 500 mg Documented by: WANDY Guaifenesin/Dextromethorphan (Guaifenesin Dm 100/10/5 Ml 5 Ml Syrup) 10 ml PO Q6H PRN PRN Reason: cough Hydroxyzine HCl (Hydroxyzine Hcl 25 Mg Tablet) 25 mg PO Q6H PRN PRN Reason: agitation Last Admin: 09/16/21 21:52 Dose: 25 mg Documented by: MELODY Olanzapine (Olanzapine 5 Mg Tablet) 5 mg PO BEDTIME [facility] Last Admin: 10/05/21 21:00 Dose: 5 mg Documented by: ELODIA Trazodone HCl (Trazodone Hcl 50 Mg Tablet) 50 mg PO BEDTIME [facility] Last Admin: 10/05/21 21:00 Dose: 50 mg Documented by: ELODIA Labs CBC & Chem 7: 09/07/21 05:36 09/07/21 05:36 Assessment and Plan (1) Dementia with behavioral disturbance: Status: Acute Plan 75 yo M who presented to the ED on 05/23/21 for AMS and failure to thrive. He was initially going to be placed at a facility, but on 05/29 was noted to have cough and a CXR revealed a new R base infiltrate concerning for aspiration pneumonia; has completed Abx course and now awaiting placement, received COVID vaccine developed symptomatic Covid-19 infection 08/17/21 without hypoxia Covid-19 infection resolved dementia with behavioral disturbances Use Seroquel as needed, redirection No behavioral issues noted in last several days patient has no capacity, continue current psych meds aspiration pneumonia no recurrent episode,completed treatment continue nectar thick and ground/mech [NDD2] diet suspected scabies treated with permethrin x 2 doses, no new rash noted stage 2 pressure ucler (L heel / M medial heel) and stage I bilateral buttock- present on admission continue wound care foam dressing to heel, continue barrier cream, + air loss bed + high-protein diet (on supplements) dispo awaiting LTC placement Quality Stroke Does the patient have a stroke diagnosis?: No VTE Prior VTE?: No VTE Risk Level:: Medical - moderate - high VTE Device Contraindication: N/A - Device Ordered VTE Drug Contraindication: N/A - Med Ordered
[2021-10-06 15:17] VITALS: BP 149/72; PULSE 60; RESP 17; TEMP 36.4; O2SAT 94
[2021-10-06 23:23] VITALS: BP 142/65; PULSE 65; RESP 17; TEMP 36.7; O2SAT 97
[2021-10-07 08:00] VITALS: BP 128/67; PULSE 76; RESP 17; TEMP 36.6; O2SAT 95
[2021-10-07] MEDS: Ascorbic Acid 500 MG TABLET PO (09:46)
[2021-10-07] MEDS: hydrOXYzine HCL 25 MG TABLET PO (09:46)
--- NOTE | 2021-10-07 10:33 | P.PNIM_ITS ---
Subjective Subjective Date of Service: 10/07/21 Interval History: Laying in the bed, looks comfortable not in distress No reported other overnight events. Systemic review: No fever, chills or weakness No chest pain, palpitation No shortness of breath or coughing No abdominal pain, nausea or vomiting Physical Exam Vital Signs: Vital Signs: Last Vital Signs Temp 97.9 F 10/07/21 08:00 Pulse 76 10/07/21 08:00 Resp 17 10/07/21 08:00 BP 128/67 10/07/21 08:00 Pulse Ox 95 10/07/21 08:00 BMI result Body Mass Index 22.1 Const: Other: Constitutional : interactive upon waking up, disoriented at baseline not in distress Neck : Normal inspection, Supple Respiratory : Chest moving bilaterally, no respiratory distress Neurological : Alert & disoriented, No focal deficit Objective Data Active Medications Ascorbic Acid (Ascorbic Acid 500 Mg Tablet) 500 mg PO DAILY [facility] Last Admin: 10/07/21 09:46 Dose: 500 mg Documented by: WANDY Guaifenesin/Dextromethorphan (Guaifenesin Dm 100/10/5 Ml 5 Ml Syrup) 10 ml PO Q6H PRN PRN Reason: cough Hydroxyzine HCl (Hydroxyzine Hcl 25 Mg Tablet) 25 mg PO Q6H PRN PRN Reason: agitation Last Admin: 10/07/21 09:46 Dose: 25 mg Documented by: WANDY Olanzapine (Olanzapine 5 Mg Tablet) 5 mg PO BEDTIME [facility] Last Admin: 10/06/21 20:18 Dose: Not Given Documented by: ELODIA Non-Admin Reason: pt refusing to wake up Trazodone HCl (Trazodone Hcl 50 Mg Tablet) 50 mg PO BEDTIME [facility] Last Admin: 10/06/21 20:18 Dose: Not Given Documented by: ELODIA Non-Admin Reason: pt refusing to wake up Labs CBC & Chem 7: 09/07/21 05:36 09/07/21 05:36 Assessment and Plan (1) Dementia with behavioral disturbance: Status: Acute Plan 75 yo M who presented to the ED on 05/23/21 for AMS and failure to thrive. He was initially going to be placed at a facility, but on 05/29 was noted to have cough and a CXR revealed a new R base infiltrate concerning for aspiration pneumonia; has completed Abx course and now awaiting placement, received COVID vaccine developed symptomatic Covid-19 infection 08/17/21 without hypoxia Covid-19 infection resolved dementia with behavioral disturbances Use Seroquel as needed, redirection No behavioral issues noted in last several days patient has no capacity, continue current psych meds aspiration pneumonia no recurrent episode,completed treatment continue nectar thick and ground/mech [NDD2] diet suspected scabies treated with permethrin x 2 doses, no new rash noted stage 2 pressure ucler (L heel / M medial heel) and stage I bilateral buttock- present on admission continue wound care foam dressing to heel, continue barrier cream, + air loss bed + high-protein diet (on supplements) dispo awaiting LTC placement Quality Stroke Does the patient have a stroke diagnosis?: No VTE Prior VTE?: No VTE Risk Level:: Medical - moderate - high VTE Device Contraindication: N/A - Device Ordered VTE Drug Contraindication: N/A - Med Ordered
[2021-10-07 15:12] VITALS: BP 164/76; PULSE 62; RESP 18; TEMP 37; O2SAT 98
[2021-10-07] MEDS: traZODone HCL 50 MG TABLET PO (20:36)
[2021-10-07] MEDS: OLANZapine 5 MG TABLET PO (20:36)
[2021-10-07 23:49] VITALS: BP 115/56; PULSE 61; RESP 18; TEMP 36.4; O2SAT 93
[2021-10-08 07:26] VITALS: BP 122/66; PULSE 60; RESP 18; TEMP 36.4; O2SAT 95
[2021-10-08] MEDS: Ascorbic Acid 500 MG TABLET PO (10:26)
--- NOTE | 2021-10-08 12:52 | MHC.CM.PN ---
Addendum entered by Nathalia Koroma 10/08/21 15:26: [facility] [place] INDOR[place] ME THAT [facility] WAS DENIED [employer] ELIGEABILITY. WHEN TALING WITH FINANCIAL COUNSELOR SHE INFORMED ME THAT THE GUARDIAN SENT IN THE APPLICATION FOR [employer] ELIGEABILITY ONE COUPLE AND THAT SHE INFORMED THAT GUARDIAN SHE NEEDS TO COMPLERE A CREDIT PRODUCT ANALYST APPLICATION FOR EACH PERSON SEPARETELY Original Note: nurse nurse outreach case manager note electronic medical record reviewed along with case disscussed with [facility] . clinical update sent to facilities , trying to secure correction bed placement discharge plan intermediate project manager care placement , will follow up with aj montague checking in to see if we have a [employer] number as yet contqct guardian /conservator for update as she is completing application
--- NOTE | 2021-10-08 13:42 | P.PNIM_ITS ---
Subjective Subjective Date of Service: 10/08/21 Interval History: Laying in the bed, looks comfortable not in distress No reported other overnight events. Systemic review: No fever, chills or weakness No chest pain, palpitation No shortness of breath or coughing No abdominal pain, nausea or vomiting Physical Exam Vital Signs: Vital Signs: Last Vital Signs Temp 97.5 F 10/08/21 07:26 Pulse 60 10/08/21 07:26 Resp 18 10/08/21 07:26 BP 122/66 10/08/21 07:26 Pulse Ox 95 10/08/21 07:26 BMI result Body Mass Index 22.1 Const: Other: Constitutional : interactive upon waking up, disoriented at baseline not in distress Neck : Normal inspection, Supple Respiratory : Chest moving bilaterally, no respiratory distress Neurological : Alert & disoriented, No focal deficit Objective Data Active Medications Ascorbic Acid (Ascorbic Acid 500 Mg Tablet) 500 mg PO DAILY [facility] Last Admin: 10/08/21 10:26 Dose: 500 mg Documented by: DEONTE Guaifenesin/Dextromethorphan (Guaifenesin Dm 100/10/5 Ml 5 Ml Syrup) 10 ml PO Q6H PRN PRN Reason: cough Hydroxyzine HCl (Hydroxyzine Hcl 25 Mg Tablet) 25 mg PO Q6H PRN PRN Reason: agitation Last Admin: 10/07/21 09:46 Dose: 25 mg Documented by: WANDY Olanzapine (Olanzapine 5 Mg Tablet) 5 mg PO BEDTIME [facility] Last Admin: 10/07/21 20:36 Dose: 5 mg Documented by: CESAR Trazodone HCl (Trazodone Hcl 50 Mg Tablet) 50 mg PO BEDTIME [facility] Last Admin: 10/07/21 20:36 Dose: 50 mg Documented by: CESAR Labs CBC & Chem 7: 09/07/21 05:36 09/07/21 05:36 Assessment and Plan (1) Dementia with behavioral disturbance: Status: Acute Plan 75 yo M who presented to the ED on 05/23/21 for AMS and failure to thrive. He was initially going to be placed at a facility, but on 05/29 was noted to have cough and a CXR revealed a new R base infiltrate concerning for aspiration pneumonia; has completed Abx course and now awaiting placement, received COVID vaccine developed symptomatic Covid-19 infection 1/21/22 without hypoxia Covid-19 infection resolved dementia with behavioral disturbances Use Seroquel as needed, redirection No behavioral issues noted in last several days patient has no capacity, continue current psych meds aspiration pneumonia no recurrent episode,completed treatment continue nectar thick and ground/mech [NDD2] diet suspected scabies treated with permethrin x 2 doses, no new rash noted stage 2 pressure ucler (L heel / M medial heel) and stage I bilateral buttock- present on admission continue wound care foam dressing to heel, continue barrier cream, + air loss bed + high-protein diet (on supplements) dispo awaiting LTC placement Quality Stroke Does the patient have a stroke diagnosis?: No VTE Prior VTE?: No VTE Risk Level:: Medical - moderate - high VTE Device Contraindication: N/A - Device Ordered VTE Drug Contraindication: N/A - Med Ordered
[2021-10-08 15:24] VITALS: BP 111/58; PULSE 66; RESP 18; TEMP 36.1; O2SAT 95
[2021-10-08] MEDS: traZODone HCL 50 MG TABLET PO (20:05)
[2021-10-08] MEDS: OLANZapine 5 MG TABLET PO (20:05)
[2021-10-08 23:40] VITALS: BP 132/64; PULSE 66; RESP 15; TEMP 36.6; O2SAT 96
[2021-10-09 06:48] VITALS: BP 122/64; PULSE 72; RESP 18; TEMP 36.6; O2SAT 96
[2021-10-09] MEDS: Ascorbic Acid 500 MG TABLET PO (11:05)
--- NOTE | 2021-10-09 11:07 | HO.PM.IMPN ---
Subjective Subjective Date of Service: 10/09/21 Interval History: Laying in the bed, looks comfortable not in distress No reported other overnight events. Systemic review: No fever, chills or weakness No chest pain, palpitation No shortness of breath or coughing No abdominal pain, nausea or vomiting Physical Exam Vital Signs: Vital Signs: Last Vital Signs Temp 98 F 10/09/21 06:48 Pulse 72 10/09/21 06:48 Resp 18 10/09/21 06:48 BP 122/64 10/09/21 06:48 Pulse Ox 96 10/09/21 06:48 BMI result Body Mass Index 22.1 Const: Other: Constitutional : interactive upon waking up, disoriented at baseline not in distress Neck : Normal inspection, Supple Respiratory : Chest moving bilaterally, no respiratory distress Neurological : Alert & disoriented, No focal deficit Objective Data Active Medications Ascorbic Acid (Ascorbic Acid 500 Mg Tablet) 500 mg PO DAILY [facility] Last Admin: 10/09/21 11:05 Dose: 500 mg Documented by: CYNTHIA Guaifenesin/Dextromethorphan (Guaifenesin Dm 100/10/5 Ml 5 Ml Syrup) 10 ml PO Q6H PRN PRN Reason: cough Hydroxyzine HCl (Hydroxyzine Hcl 25 Mg Tablet) 25 mg PO Q6H PRN PRN Reason: agitation Last Admin: 10/07/21 09:46 Dose: 25 mg Documented by: WANDY Olanzapine (Olanzapine 5 Mg Tablet) 5 mg PO BEDTIME [facility] Last Admin: 10/08/21 20:05 Dose: 5 mg Documented by: ELODIA Trazodone HCl (Trazodone Hcl 50 Mg Tablet) 50 mg PO BEDTIME [facility] Last Admin: 10/08/21 20:05 Dose: 50 mg Documented by: ELODIA Labs CBC & Chem 7: 09/07/21 05:36 09/07/21 05:36 Assessment and Plan (1) Dementia with behavioral disturbance: Status: Acute Plan 75 yo M who presented to the ED on 05/23/21 for AMS and failure to thrive. He was initially going to be placed at a facility, but on 05/29 was noted to have cough and a CXR revealed a new R base infiltrate concerning for aspiration pneumonia; has completed Abx course and now awaiting placement, received COVID vaccine developed symptomatic Covid-19 infection 08/17/21 without hypoxia Covid-19 infection resolved dementia with behavioral disturbances Use Seroquel as needed, redirection No behavioral issues noted in last several days patient has no capacity, continue current psych meds aspiration pneumonia no recurrent episode,completed treatment continue nectar thick and ground/mech [NDD2] diet suspected scabies treated with permethrin x 2 doses, no new rash noted stage 2 pressure ucler (L heel / M medial heel) and stage I bilateral buttock- present on admission continue wound care foam dressing to heel, continue barrier cream, + air loss bed + high-protein diet (on supplements) dispo awaiting LTC placement Quality Stroke Does the patient have a stroke diagnosis?: No VTE Prior VTE?: No VTE Risk Level:: Medical - moderate - high VTE Device Contraindication: N/A - Device Ordered VTE Drug Contraindication: N/A - Med Ordered
[2021-10-09 15:34] VITALS: BP 133/51; PULSE 67; RESP 18; TEMP 36.1; O2SAT 95
--- NOTE | 2021-10-09 17:00 | MHC.CM.PN ---
NURSE AIRCRAFT DESIGN ENGINEER NOTE ( TEXTED RECEIVED FROM FINANCIAL COUNSELORS LONG SACHIN GUARDIAN /CONSERVATOR ) SUBMITS THE LTC SUPPLEMENT AND PROOF OF SPEND-DOWN OR TRANSFER OF THE LIFE INSURANCE POLICY TO A HOME WITHIN 30 DAYS (BY 10/24/21), THE [facility] WILL PROCESS THE REST OF THE APPLICATION AND THEY WILL PROBABLY BE APPROVED. THEY ALSO NEED THE SC-1 AND SCREENING FORMS FROM [facility] THEM. THEY SHOULD FAX THEM TO [phone], ATTN: EARLE CLEARY DISCHARGE PLAN SUPERVISOR TAPING PLACEMENT
[2021-10-09] MEDS: OLANZapine 5 MG TABLET PO (19:08)
[2021-10-09] MEDS: traZODone HCL 50 MG TABLET PO (19:08)
[2021-10-09 23:55] VITALS: BP 126/69; PULSE 63; RESP 18; TEMP 36.7; O2SAT 96
[2021-10-10 08:00] VITALS: BP 145/67; PULSE 58; RESP 18; TEMP 36.5; O2SAT 96
[2021-10-10] MEDS: Ascorbic Acid 500 MG TABLET PO (09:11)
--- NOTE | 2021-10-10 11:13 | HO.PM.IMPN ---
Subjective Subjective Date of Service: 10/10/21 Interval History: no complaints Cardiovascular Cardiovascular: Reports no additional cardiovascular complaints Respiratory Respiratory: Reports no additional respiratory complaints Physical Exam Vital Signs: Vital Signs: Last Vital Signs Temp 97.7 F 10/10/21 08:00 Pulse 58 10/10/21 08:00 Resp 18 10/10/21 08:00 BP 145/67 H 10/10/21 08:00 Pulse Ox 96 10/10/21 08:00 BMI result Body Mass Index 22.1 Const Other: Constitutional :? interactive upon waking up, disoriented at baseline not in distress Neck : Normal inspection, Supple Respiratory :? Chest moving bilaterally, no respiratory distress Neurological : Alert & disoriented, No focal deficit Objective Data Active Medications Ascorbic Acid (Ascorbic Acid 500 Mg Tablet) 500 mg PO DAILY [facility] Last Admin: 10/10/21 09:11 Dose: 500 mg Documented by: GOLDEN Guaifenesin/Dextromethorphan (Guaifenesin Dm 100/10/5 Ml 5 Ml Syrup) 10 ml PO Q6H PRN PRN Reason: cough Hydroxyzine HCl (Hydroxyzine Hcl 25 Mg Tablet) 25 mg PO Q6H PRN PRN Reason: agitation Last Admin: 10/07/21 09:46 Dose: 25 mg Documented by: JULIANEMA Olanzapine (Olanzapine 5 Mg Tablet) 5 mg PO BEDTIME [facility]S [facility] Last Admin: 10/09/21 19:08 Dose: 5 mg Documented by: ELODIA Trazodone HCl (Trazodone Hcl 50 Mg Tablet) 50 mg PO BEDTIME [facility]S AT [facility] Last Admin: 10/09/21 19:08 Dose: 50 mg Documented by: ELODIA Labs CBC & Chem 7: 09/07/21 05:36 09/07/21 05:36 Assessment and Plan (1) Dementia with behavioral disturbance: Status: Acute Plan 75 yo M who presented to the ED on 05/23/21 for AMS and failure to thrive. He was initially going to be placed at a facility, but on 05/29 was noted to have cough and a CXR revealed a new R base infiltrate concerning for aspiration pneumonia; has completed Abx course and now awaiting placement, received COVID vaccine developed symptomatic Covid-19 infection 08/17/21 without hypoxia Covid-19 infection resolved dementia with behavioral disturbances Use Seroquel as needed, redirection No behavioral issues noted in last several days patient has no capacity, continue current psych meds aspiration pneumonia no recurrent episode,completed treatment continue nectar thick and ground/mech [NDD2] diet suspected scabies treated with permethrin x 2 doses, no new rash noted stage 2 pressure ucler (L heel / M medial heel) and stage I bilateral buttock- present on admission continue wound care foam dressing to heel, continue barrier cream, + air loss bed + high-protein diet (on supplements) dispo awaiting LTC placement Quality Stroke Does the patient have a stroke diagnosis?: No VTE Prior VTE?: No VTE Risk Level:: Medical - moderate - high VTE Device Contraindication: N/A - Device Ordered VTE Drug Contraindication: N/A - Med Ordered
[2021-10-10 15:57] VITALS: BP 124/61; PULSE 72; RESP 18; TEMP 36.2
[2021-10-10] MEDS: traZODone HCL 50 MG TABLET PO (20:44)
[2021-10-10] MEDS: OLANZapine 5 MG TABLET PO (20:44)
[2021-10-10] MEDS: hydrOXYzine HCL 25 MG TABLET PO (20:44)
[2021-10-11] VITALS: BP 114/56; PULSE 78; RESP 14; TEMP 36.3; O2SAT 95
[2021-10-11 08:00] VITALS: BP 166/77; PULSE 76; RESP 18; TEMP 36.3; O2SAT 98
[2021-10-11] MEDS: Ascorbic Acid 500 MG TABLET PO (08:16)
--- NOTE | 2021-10-11 10:19 | HO.PM.IMPN ---
Subjective Subjective Date of Service: 10/11/21 Interval History: Laying in the bed, looks comfortable not in distress No reported other overnight events. Systemic review: No fever, chills or weakness No chest pain, palpitation No shortness of breath or coughing No abdominal pain, nausea or vomiting Physical Exam Vital Signs: Vital Signs: Last Vital Signs Temp 97.3 F 10/11/21 08:00 Pulse 76 10/11/21 08:00 Resp 18 10/11/21 08:00 BP 166/77 H 10/11/21 08:00 Pulse Ox 98 10/11/21 08:00 BMI result Body Mass Index 22.1 Const: Other: Constitutional : interactive upon waking up, disoriented at baseline not in distress Neck : Normal inspection, Supple Respiratory : Chest moving bilaterally, no respiratory distress Neurological : Alert & disoriented, No focal deficit Objective Data Active Medications Ascorbic Acid (Ascorbic Acid 500 Mg Tablet) 500 mg PO DAILY [facility] Last Admin: 10/11/21 08:16 Dose: 500 mg Documented by: KARINA Guaifenesin/Dextromethorphan (Guaifenesin Dm 100/10/5 Ml 5 Ml Syrup) 10 ml PO Q6H PRN PRN Reason: cough Hydroxyzine HCl (Hydroxyzine Hcl 25 Mg Tablet) 25 mg PO Q6H PRN PRN Reason: agitation Last Admin: 10/10/21 20:44 Dose: 25 mg Documented by: GIL Olanzapine (Olanzapine 5 Mg Tablet) 5 mg PO BEDTIME [facility] Last Admin: 10/10/21 20:44 Dose: 5 mg Documented by: GIL Trazodone HCl (Trazodone Hcl 50 Mg Tablet) 50 mg PO BEDTIME [facility] Last Admin: 10/10/21 20:44 Dose: 50 mg Documented by: GIL Labs CBC & Chem 7: 09/07/21 05:36 09/07/21 05:36 Assessment and Plan (1) Dementia with behavioral disturbance: Status: Acute Plan 75 yo M who presented to the ED on 05/23/21 for AMS and failure to thrive. He was initially going to be placed at a facility, but on 05/29 was noted to have cough and a CXR revealed a new R base infiltrate concerning for aspiration pneumonia; has completed Abx course and now awaiting placement, received COVID vaccine developed symptomatic Covid-19 infection 08/17/21 without hypoxia Covid-19 infection resolved dementia with behavioral disturbances Use Seroquel as needed, redirection No behavioral issues noted in last several days patient has no capacity, continue current psych meds aspiration pneumonia no recurrent episode,completed treatment continue nectar thick and ground/mech [NDD2] diet suspected scabies treated with permethrin x 2 doses, no new rash noted stage 2 pressure ucler (L heel / M medial heel) and stage I bilateral buttock- present on admission continue wound care foam dressing to heel, continue barrier cream, + air loss bed + high-protein diet (on supplements) dispo awaiting LTC placement Quality Stroke Does the patient have a stroke diagnosis?: No VTE Prior VTE?: No VTE Risk Level:: Medical - moderate - high VTE Device Contraindication: N/A - Device Ordered VTE Drug Contraindication: N/A - Med Ordered
[2021-10-11 15:15] VITALS: BP 138/76; PULSE 69; RESP 18; TEMP 36.4; O2SAT 97
[2021-10-11] MEDS: OLANZapine 5 MG TABLET PO (22:21)
[2021-10-11] MEDS: traZODone HCL 50 MG TABLET PO (22:21)
[2021-10-11] MEDS: hydrOXYzine HCL 25 MG TABLET PO (22:21)
[2021-10-12] VITALS: RESP 18
[2021-10-12] MEDS: hydrOXYzine HCL 25 MG TABLET PO (04:14)
[2021-10-12 06:53] VITALS: BP 122/64; PULSE 72; RESP 19; TEMP 35.5; O2SAT 97
--- NOTE | 2021-10-12 10:19 | P.PNIM_ITS ---
Subjective Subjective Date of Service: 10/12/21 Interval History: no complaints Cardiovascular Cardiovascular: Reports no additional cardiovascular complaints Respiratory Respiratory: Reports no additional respiratory complaints Physical Exam Vital Signs: Vital Signs: Last Vital Signs Temp 96 F L 10/12/21 06:53 Pulse 72 10/12/21 06:53 Resp 19 10/12/21 06:53 BP 122/64 10/12/21 06:53 Pulse Ox 97 10/12/21 06:53 BMI result Body Mass Index 22.1 Const Other: Constitutional :? interactive upon waking up, disoriented at baseline not in distress Neck : Normal inspection, Supple Respiratory :? Chest moving bilaterally, no respiratory distress Neurological : Alert & disoriented, No focal deficit Objective Data Active Medications Ascorbic Acid (Ascorbic Acid 500 Mg Tablet) 500 mg PO DAILY [facility] Last Admin: 10/11/21 08:16 Dose: 500 mg Documented by: KARINA Guaifenesin/Dextromethorphan (Guaifenesin Dm 100/10/5 Ml 5 Ml Syrup) 10 ml PO Q6H PRN PRN Reason: cough Hydroxyzine HCl (Hydroxyzine Hcl 25 Mg Tablet) 25 mg PO Q6H PRN PRN Reason: agitation Last Admin: 10/12/21 04:14 Dose: 25 mg Documented by: GIL Olanzapine (Olanzapine 5 Mg Tablet) 5 mg PO BEDTIME [facility] Last Admin: 10/11/21 22:21 Dose: 5 mg Documented by: GIL Trazodone HCl (Trazodone Hcl 50 Mg Tablet) 50 mg PO BEDTIME [facility] Last Admin: 10/11/21 22:21 Dose: 50 mg Documented by: GIL Labs CBC & Chem 7: 09/07/21 05:36 09/07/21 05:36 Assessment and Plan (1) Dementia with behavioral disturbance: Status: Acute Plan 75 yo M who presented to the ED on 05/23/21 for AMS and failure to thrive. He was initially going to be placed at a facility, but on 05/29 was noted to have cough and a CXR revealed a new R base infiltrate concerning for aspiration pneumonia; has completed Abx course and now awaiting placement, received COVID vaccine developed symptomatic Covid-19 infection 08/17/21 without hypoxia Covid-19 infection resolved dementia with behavioral disturbances Use Seroquel as needed, redirection No behavioral issues noted in last several days patient has no capacity, continue current psych meds aspiration pneumonia no recurrent episode,completed treatment continue nectar thick and ground/mech [NDD2] diet suspected scabies treated with permethrin x 2 doses, no new rash noted stage 2 pressure ucler (L heel / M medial heel) and stage I bilateral buttock- present on admission continue wound care foam dressing to heel, continue barrier cream, + air loss bed + high-protein diet (on supplements) dispo awaiting LTC placement Quality Stroke Does the patient have a stroke diagnosis?: No VTE Prior VTE?: No VTE Risk Level:: Medical - moderate - high VTE Device Contraindication: N/A - Device Ordered VTE Drug Contraindication: N/A - Med Ordered
[2021-10-12 15:32] VITALS: BP 134/61; PULSE 63; RESP 18; TEMP 36.9; O2SAT 95
[2021-10-12] MEDS: traZODone HCL 50 MG TABLET PO (20:23)
[2021-10-12] MEDS: OLANZapine 5 MG TABLET PO (20:23)
[2021-10-12 23:27] VITALS: BP 108/76; PULSE 68; RESP 18; TEMP 36.8; O2SAT 96
[2021-10-13 08:00] VITALS: BP 101/59; PULSE 71; RESP 17; TEMP 36.3; O2SAT 96
[2021-10-13] MEDS: Ascorbic Acid 500 MG TABLET PO (09:38)
--- NOTE | 2021-10-13 11:46 | HO.PM.IMPN ---
Subjective Subjective Date of Service: 10/13/21 Interval History: no complaints Cardiovascular Cardiovascular: Reports no additional cardiovascular complaints Respiratory Respiratory: Reports no additional respiratory complaints Physical Exam Vital Signs: Vital Signs: Last Vital Signs Temp 97.4 F 10/13/21 08:00 Pulse 71 10/13/21 08:00 Resp 17 10/13/21 08:00 BP 101/59 L 10/13/21 08:00 Pulse Ox 96 10/13/21 08:00 BMI result Body Mass Index 22.1 Const Other: Constitutional :? interactive upon waking up, disoriented at baseline not in distress Neck : Normal inspection, Supple Respiratory :? Chest moving bilaterally, no respiratory distress Neurological : Alert & disoriented, No focal deficit Objective Data Active Medications Ascorbic Acid (Ascorbic Acid 500 Mg Tablet) 500 mg PO DAILY [facility] Last Admin: 10/13/21 09:38 Dose: 500 mg Documented by: LAURENCE Guaifenesin/Dextromethorphan (Guaifenesin Dm 100/10/5 Ml 5 Ml Syrup) 10 ml PO Q6H PRN PRN Reason: cough Hydroxyzine HCl (Hydroxyzine Hcl 25 Mg Tablet) 25 mg PO Q6H PRN PRN Reason: agitation Last Admin: 10/12/21 04:14 Dose: 25 mg Documented by: GIL Olanzapine (Olanzapine 5 Mg Tablet) 5 mg PO BEDTIME [facility] Last Admin: 10/12/21 20:23 Dose: 5 mg Documented by: ARELY Trazodone HCl (Trazodone Hcl 50 Mg Tablet) 50 mg PO BEDTIME [facility] Last Admin: 10/12/21 20:23 Dose: 50 mg Documented by: ARELY Labs CBC & Chem 7: 09/07/21 05:36 09/07/21 05:36 Assessment and Plan (1) Dementia with behavioral disturbance: Status: Acute Plan 75 yo M who presented to the ED on 05/23/21 for AMS and failure to thrive. He was initially going to be placed at a facility, but on 05/29 was noted to have cough and a CXR revealed a new R base infiltrate concerning for aspiration pneumonia; has completed Abx course and now awaiting placement, received COVID vaccine developed symptomatic Covid-19 infection 08/17/21 without hypoxia Covid-19 infection resolved dementia with behavioral disturbances Use Seroquel as needed, redirection No behavioral issues noted in last several days patient has no capacity, continue current psych meds aspiration pneumonia no recurrent episode,completed treatment continue nectar thick and ground/mech [NDD2] diet suspected scabies treated with permethrin x 2 doses, no new rash noted stage 2 pressure ucler (L heel / M medial heel) and stage I bilateral buttock- present on admission continue wound care foam dressing to heel, continue barrier cream, + air loss bed + high-protein diet (on supplements) dispo awaiting LTC placement Quality Stroke Does the patient have a stroke diagnosis?: No VTE Prior VTE?: No VTE Risk Level:: Medical - moderate - high VTE Device Contraindication: N/A - Device Ordered VTE Drug Contraindication: N/A - Med Ordered
[2021-10-13 15:14] VITALS: BP 168/79; PULSE 66; RESP 18; TEMP 36.6; O2SAT 96
[2021-10-13] MEDS: traZODone HCL 50 MG TABLET PO (21:31)
[2021-10-13] MEDS: OLANZapine 5 MG TABLET PO (21:31)
[2021-10-13 23:50] VITALS: BP 113/65; PULSE 69; RESP 18; TEMP 36.5; O2SAT 95
[2021-10-14 07:17] VITALS: BP 138/61; PULSE 74; RESP 17; TEMP 36.3; O2SAT 96
--- NOTE | 2021-10-14 09:16 | HO.PM.IMPN ---
Subjective Subjective Date of Service: 10/14/21 Interval History: no complaints Respiratory Respiratory: Reports no additional respiratory complaints Gastrointestinal Gastrointestinal: Reports no additional gastrointestinal complaints Physical Exam Vital Signs: Vital Signs: Last Vital Signs Temp 97.4 F 10/14/21 07:17 Pulse 74 10/14/21 07:17 Resp 17 10/14/21 07:17 BP 138/61 10/14/21 07:17 Pulse Ox 96 10/14/21 07:17 BMI result Body Mass Index 22.1 Const Other: Constitutional :? interactive upon waking up, disoriented at baseline not in distress Neck : Normal inspection, Supple Respiratory :? Chest moving bilaterally, no respiratory distress Neurological : Alert & disoriented, No focal deficit Objective Data Active Medications Ascorbic Acid (Ascorbic Acid 500 Mg Tablet) 500 mg PO DAILY [facility] Last Admin: 10/13/21 09:38 Dose: 500 mg Documented by: LAURENCE Guaifenesin/Dextromethorphan (Guaifenesin Dm 100/10/5 Ml 5 Ml Syrup) 10 ml PO Q6H PRN PRN Reason: cough Hydroxyzine HCl (Hydroxyzine Hcl 25 Mg Tablet) 25 mg PO Q6H PRN PRN Reason: agitation Last Admin: 10/12/21 04:14 Dose: 25 mg Documented by: GIL Olanzapine (Olanzapine 5 Mg Tablet) 5 mg PO BEDTIME [facility] Last Admin: 10/13/21 21:31 Dose: 5 mg Documented by: ARELY Trazodone HCl (Trazodone Hcl 50 Mg Tablet) 50 mg PO BEDTIME [facility] Last Admin: 10/13/21 21:31 Dose: 50 mg Documented by: ARELY Labs CBC & Chem 7: 09/07/21 05:36 09/07/21 05:36 Assessment and Plan (1) Dementia with behavioral disturbance: Status: Acute Plan 75 yo M who presented to the ED on 05/23/21 for AMS and failure to thrive. He was initially going to be placed at a facility, but on 05/29 was noted to have cough and a CXR revealed a new R base infiltrate concerning for aspiration pneumonia; has completed Abx course and now awaiting placement, received COVID vaccine developed symptomatic Covid-19 infection 08/17/21 without hypoxia Covid-19 infection resolved dementia with behavioral disturbances Use Seroquel as needed, redirection No behavioral issues noted in last several days patient has no capacity, continue current psych meds aspiration pneumonia no recurrent episode,completed treatment continue nectar thick and ground/mech [NDD2] diet suspected scabies treated with permethrin x 2 doses, no new rash noted stage 2 pressure ucler (L heel / M medial heel) and stage I bilateral buttock- present on admission continue wound care foam dressing to heel, continue barrier cream, + air loss bed + high-protein diet (on supplements) dispo awaiting LTC placement Quality Stroke Does the patient have a stroke diagnosis?: No VTE Prior VTE?: No VTE Risk Level:: Medical - moderate - high VTE Device Contraindication: N/A - Device Ordered VTE Drug Contraindication: N/A - Med Ordered
[2021-10-14] MEDS: Ascorbic Acid 500 MG TABLET PO (10:27)
[2021-10-14 15:37] VITALS: BP 155/67; PULSE 73; RESP 18; TEMP 36.8; O2SAT 95
[2021-10-14] MEDS: traZODone HCL 50 MG TABLET PO (19:34)
[2021-10-14] MEDS: OLANZapine 5 MG TABLET PO (19:34)
[2021-10-14 23:50] VITALS: BP 151/55; PULSE 70; RESP 14; TEMP 36.7; O2SAT 95
[2021-10-15 08:00] VITALS: BP 150/65; PULSE 66; RESP 17; TEMP 36.4; O2SAT 94
[2021-10-15] MEDS: Ascorbic Acid 500 MG TABLET PO (08:12)
--- NOTE | 2021-10-15 09:59 | P.PNIM_ITS ---
Subjective Subjective Date of Service: 10/15/21 Interval History: no complaints Respiratory Respiratory: Reports no additional respiratory complaints Gastrointestinal Gastrointestinal: Reports no additional gastrointestinal complaints Physical Exam Vital Signs: Vital Signs: Last Vital Signs Temp 97.5 F 10/15/21 08:00 Pulse 66 10/15/21 08:00 Resp 17 10/15/21 08:00 BP 150/65 H 10/15/21 08:00 Pulse Ox 94 10/15/21 08:00 BMI result Body Mass Index 22.1 Const Other: Constitutional :? interactive upon waking up, disoriented at baseline not in distress Neck : Normal inspection, Supple Respiratory :? Chest moving bilaterally, no respiratory distress Neurological : Alert & disoriented, No focal deficit Objective Data Active Medications Ascorbic Acid (Ascorbic Acid 500 Mg Tablet) 500 mg PO DAILY [facility] Last Admin: 10/15/21 08:12 Dose: 500 mg Documented by: ROBERT Guaifenesin/Dextromethorphan (Guaifenesin Dm 100/10/5 Ml 5 Ml Syrup) 10 ml PO Q6H PRN PRN Reason: cough Hydroxyzine HCl (Hydroxyzine Hcl 25 Mg Tablet) 25 mg PO Q6H PRN PRN Reason: agitation Last Admin: 10/12/21 04:14 Dose: 25 mg Documented by: GIL Olanzapine (Olanzapine 5 Mg Tablet) 5 mg PO BEDTIME [facility] Last Admin: 10/14/21 19:34 Dose: 5 mg Documented by: ELODIA Trazodone HCl (Trazodone Hcl 50 Mg Tablet) 50 mg PO BEDTIME [facility] Last Admin: 10/14/21 19:34 Dose: 50 mg Documented by: ELODIA Labs CBC & Chem 7: 09/07/21 05:36 09/07/21 05:36 Assessment and Plan (1) Dementia with behavioral disturbance: Status: Acute Plan 75 yo M who presented to the ED on 05/23/21 for AMS and failure to thrive. He was initially going to be placed at a facility, but on 05/29 was noted to have cough and a CXR revealed a new R base infiltrate concerning for aspiration pneumonia; has completed Abx course and now awaiting placement, received COVID vaccine developed symptomatic Covid-19 infection 08/17/21 without hypoxia Covid-19 infection resolved dementia with behavioral disturbances Use Seroquel as needed, redirection No behavioral issues noted in last several days patient has no capacity, continue current psych meds aspiration pneumonia no recurrent episode,completed treatment continue nectar thick and ground/mech [NDD2] diet suspected scabies treated with permethrin x 2 doses, no new rash noted stage 2 pressure ucler (L heel / M medial heel) and stage I bilateral buttock- present on admission continue wound care foam dressing to heel, continue barrier cream, + air loss bed + high-protein diet (on supplements) dispo awaiting LTC placement Quality Stroke Does the patient have a stroke diagnosis?: No VTE Prior VTE?: No VTE Risk Level:: Medical - moderate - high VTE Device Contraindication: N/A - Device Ordered VTE Drug Contraindication: N/A - Med Ordered
[2021-10-15 15:43] VITALS: BP 130/61; PULSE 58; RESP 18; TEMP 36.9; O2SAT 95
--- NOTE | 2021-10-15 15:48 | MHC.CM.PN ---
EMR REVIEWED, CM CONACTED PTS GUARDIAN/CONSERVATOR ATTY SACHIN DUMONT AT 3:36PM, ATTY TIM REPORTED SHE SUBMITTED FINAL DOCUMENTS TO LAST WEEK, SS # PROVIDED TO [facility] TO VERIFY, ANTIC PT WILL D/C ONCE MH IS VERIFIED. CM WILL CONT TO FOLLOW D/C NEEDS.
[2021-10-15] MEDS: traZODone HCL 50 MG TABLET PO (20:23)
[2021-10-15] MEDS: OLANZapine 5 MG TABLET PO (20:23)
[2021-10-15 23:03] VITALS: BP 135/68; PULSE 71; RESP 18; TEMP 36.6; O2SAT 99
[2021-10-16] VITALS: RESP 18
--- NOTE | 2021-10-16 10:13 | P.PNIM_ITS ---
Subjective Subjective Date of Service: 10/16/21 Interval History: no complaints Review of Systems Review of Systems: Yes all other systems are reviewed and are negative Physical Exam Vital Signs: Vital Signs: Last Vital Signs Temp 97.8 F 10/15/21 23:03 Pulse 71 10/15/21 23:03 Resp 18 10/16/21 00:00 BP 135/68 10/15/21 23:03 Pulse Ox 99 10/15/21 23:03 BMI result Body Mass Index 22.1 Const Other: Constitutional :? interactive upon waking up, disoriented at baseline not in distress Neck : Normal inspection, Supple Respiratory :? Chest moving bilaterally, no respiratory distress Neurological : Alert & disoriented, No focal deficit Objective Data Active Medications Ascorbic Acid (Ascorbic Acid 500 Mg Tablet) 500 mg PO DAILY [facility] Last Admin: 10/15/21 08:12 Dose: 500 mg Documented by: ROBERT Guaifenesin/Dextromethorphan (Guaifenesin Dm 100/10/5 Ml 5 Ml Syrup) 10 ml PO Q6H PRN PRN Reason: cough Hydroxyzine HCl (Hydroxyzine Hcl 25 Mg Tablet) 25 mg PO Q6H PRN PRN Reason: agitation Last Admin: 10/12/21 04:14 Dose: 25 mg Documented by: GIL Olanzapine (Olanzapine 5 Mg Tablet) 5 mg PO BEDTIME [facility] Last Admin: 10/15/21 20:23 Dose: 5 mg Documented by: KELSEY Trazodone HCl (Trazodone Hcl 50 Mg Tablet) 50 mg PO BEDTIME [facility] Last Admin: 10/15/21 20:23 Dose: 50 mg Documented by: KELSEY Labs CBC & Chem 7: 09/07/21 05:36 09/07/21 05:36 Assessment and Plan (1) Dementia with behavioral disturbance: Status: Acute Plan 75 yo M who presented to the ED on 05/23/21 for AMS and failure to thrive. He was initially going to be placed at a facility, but on 05/29 was noted to have cough and a CXR revealed a new R base infiltrate concerning for aspiration pneumonia; has completed Abx course and now awaiting placement, received COVID vaccine developed symptomatic Covid-19 infection 08/17/21 without hypoxia Covid-19 infection resolved dementia with behavioral disturbances Use Seroquel as needed, redirection No behavioral issues noted in last several days patient has no capacity, continue current psych meds aspiration pneumonia no recurrent episode,completed treatment continue nectar thick and ground/mech [NDD2] diet suspected scabies treated with permethrin x 2 doses, no new rash noted stage 2 pressure ucler (L heel / M medial heel) and stage I bilateral buttock- present on admission continue wound care foam dressing to heel, continue barrier cream, + air loss bed + high-protein t (on supplements) dispo awaiting LTC placement Quality Stroke Does the patient have a stroke diagnosis?: No VTE Prior VTE?: No VTE Risk Level:: Medical - moderate - high VTE Device Contraindication: N/A - Device Ordered VTE Drug Contraindication: N/A - Med Ordered
[2021-10-16] MEDS: Ascorbic Acid 500 MG TABLET PO (10:57)
[2021-10-16 15:32] VITALS: BP 138/63; PULSE 67; RESP 18; TEMP 37; O2SAT 94
[2021-10-16] MEDS: traZODone HCL 50 MG TABLET PO (19:39)
[2021-10-16] MEDS: OLANZapine 5 MG TABLET PO (19:39)
[2021-10-16 23:21] VITALS: BP 143/65; PULSE 74; RESP 17; TEMP 36.3; O2SAT 94
[2021-10-17 07:26] VITALS: BP 144/64; PULSE 80; RESP 18; TEMP 36.8; O2SAT 98
[2021-10-17] MEDS: Ascorbic Acid 500 MG TABLET PO (08:42)
--- NOTE | 2021-10-17 13:46 | P.PNIM_ITS ---
Subjective Subjective Date of Service: 10/17/21 Interval History: Laying in the bed, looks comfortable not in distress No reported other overnight events. Systemic review: No fever, chills or weakness No chest pain, palpitation No shortness of breath or coughing No abdominal pain, nausea or vomiting Physical Exam Vital Signs: Vital Signs: Last Vital Signs Temp 98.2 F 10/17/21 07:26 Pulse 80 10/17/21 07:26 Resp 18 10/17/21 07:26 BP 144/64 H 10/17/21 07:26 Pulse Ox 98 10/17/21 07:26 BMI result Body Mass Index 22.1 Const: Other: Constitutional : interactive upon waking up, disoriented at baseline not in distress Neck : Normal inspection, Supple Respiratory : Chest moving bilaterally, no respiratory distress Neurological : Alert & disoriented, No focal deficit Objective Data Active Medications Ascorbic Acid (Ascorbic Acid 500 Mg Tablet) 500 mg PO DAILY [facility] Last Admin: 10/17/21 08:42 Dose: 500 mg Documented by: FRANCIE Guaifenesin/Dextromethorphan (Guaifenesin Dm 100/10/5 Ml 5 Ml Syrup) 10 ml PO Q6H PRN PRN Reason: cough Hydroxyzine HCl (Hydroxyzine Hcl 25 Mg Tablet) 25 mg PO Q6H PRN PRN Reason: agitation Last Admin: 10/12/21 04:14 Dose: 25 mg Documented by: GIL Olanzapine (Olanzapine 5 Mg Tablet) 5 mg PO BEDTIME [facility] Last Admin: 10/16/21 19:39 Dose: 5 mg Documented by: KELSEY Trazodone HCl (Trazodone Hcl 50 Mg Tablet) 50 mg PO BEDTIME [facility] Last Admin: 10/16/21 19:39 Dose: 50 mg Documented by: KELSEY Labs CBC & Chem 7: 09/07/21 05:36 09/07/21 05:36 Assessment and Plan (1) Dementia with behavioral disturbance: Status: Acute Plan 75 yo M who presented to the ED on 05/23/21 for AMS and failure to thrive. He was initially going to be placed at a facility, but on 05/29 was noted to have cough and a CXR revealed a new R base infiltrate concerning for aspiration pneumonia; has completed Abx course and now awaiting placement, received COVID vaccine developed symptomatic Covid-19 infection 1/21/22 without hypoxia Covid-19 infection resolved dementia with behavioral disturbances Use Seroquel as needed, redirection No behavioral issues noted in last several days patient has no capacity, continue current psych meds aspiration pneumonia no recurrent episode,completed treatment continue nectar thick and ground/mech [NDD2] diet suspected scabies treated with permethrin x 2 doses, no new rash noted stage 2 pressure ucler (L heel / M medial heel) and stage I bilateral buttock- present on admission continue wound care foam dressing to heel, continue barrier cream, + air loss bed + high-protein diet (on supplements) dispo awaiting LTC placement Quality Stroke Does the patient have a stroke diagnosis?: No VTE Prior VTE?: No VTE Risk Level:: Medical - moderate - high VTE Device Contraindication: N/A - Device Ordered VTE Drug Contraindication: N/A - Med Ordered
[2021-10-17 15:05] VITALS: BP 148/69; PULSE 57; RESP 15; TEMP 36.6; O2SAT 98
[2021-10-17] MEDS: hydrOXYzine HCL 25 MG TABLET PO ×2 (16:17→22:52)
[2021-10-17] MEDS: OLANZapine 5 MG TABLET PO (19:31)
[2021-10-17] MEDS: traZODone HCL 50 MG TABLET PO (19:31)
[2021-10-17 23:41] VITALS: BP 150/72; PULSE 66; RESP 16; TEMP 36.6; O2SAT 96
[2021-10-18 08:00] VITALS: BP 137/64; PULSE 54; RESP 17; TEMP 36.4; O2SAT 98
[2021-10-18] MEDS: Ascorbic Acid 500 MG TABLET PO (08:35)
--- NOTE | 2021-10-18 12:09 | P.PNIM_ITS ---
Subjective Subjective Date of Service: 10/18/21 Interval History: Laying in the bed, looks comfortable not in distress No reported other overnight events. Systemic review: No fever, chills or weakness No chest pain, palpitation No shortness of breath or coughing No abdominal pain, nausea or vomiting Physical Exam Vital Signs: Vital Signs: Last Vital Signs Temp 97.6 F 10/18/21 08:00 Pulse 54 10/18/21 08:00 Resp 17 10/18/21 08:00 BP 137/64 10/18/21 08:00 Pulse Ox 98 10/18/21 08:00 BMI result Body Mass Index 22.1 Const: Other: Constitutional : interactive upon waking up, disoriented at baseline not in distress Neck : Normal inspection, Supple Respiratory : Chest moving bilaterally, no respiratory distress Neurological : Alert & disoriented, No focal deficit Objective Data Active Medications Ascorbic Acid (Ascorbic Acid 500 Mg Tablet) 500 mg PO DAILY [facility] Last Admin: 10/18/21 08:35 Dose: 500 mg Documented by: DANITA Guaifenesin/Dextromethorphan (Guaifenesin Dm 100/10/5 Ml 5 Ml Syrup) 10 ml PO Q6H PRN PRN Reason: cough Hydroxyzine HCl (Hydroxyzine Hcl 25 Mg Tablet) 25 mg PO Q6H PRN PRN Reason: agitation Last Admin: 10/17/21 22:52 Dose: 25 mg Documented by: KELSEY Olanzapine (Olanzapine 5 Mg Tablet) 5 mg PO BEDTIME [facility] Last Admin: 10/17/21 19:31 Dose: 5 mg Documented by: KELSEY Trazodone HCl (Trazodone Hcl 50 Mg Tablet) 50 mg PO BEDTIME [facility] Last Admin: 10/17/21 19:31 Dose: 50 mg Documented by: KELSEY Labs CBC & Chem 7: 09/07/21 05:36 09/07/21 05:36 Assessment and Plan (1) Dementia with behavioral disturbance: Status: Acute Plan 75 yo M who presented to the ED on 05/23/21 for AMS and failure to thrive. He was initially going to be placed at a facility, but on 05/29 was noted to have cough and a CXR revealed a new R base infiltrate concerning for aspiration pneumonia; has completed Abx course and now awaiting placement, received COVID vaccine developed symptomatic Covid-19 infection 08/17/21 without hypoxia Covid-19 infection resolved dementia with behavioral disturbances Use Seroquel as needed, redirection No behavioral issues noted in last several days patient has no capacity, continue current psych meds aspiration pneumonia no recurrent episode,completed treatment continue nectar thick and ground/mech [NDD2] diet suspected scabies treated with permethrin x 2 doses, no new rash noted stage 2 pressure ucler (L heel / M medial heel) and stage I bilateral buttock- present on admission continue wound care foam dressing to heel, continue barrier cream, + air loss bed + high-protein diet (on supplements) dispo awaiting LTC placement Quality Stroke Does the patient have a stroke diagnosis?: No VTE Prior VTE?: No VTE Risk Level:: Medical - moderate - high VTE Device Contraindication: N/A - Device Ordered VTE Drug Contraindication: N/A - Med Ordered
--- NOTE | 2021-10-18 13:41 | MHC.CM.PN ---
THIS CM RECEIVED MESSAGE FROM [facility] REQUESTING MOST RECENT NOTES, REFERRAL UPDATED THIS AM, CM ATTEMPTED TO CALL LIAISON ALEXANDRA SOSA AT 1:30PM [phone] TO DISCUSS CASE, NO ANSWER AND MESSAGE LEFT W/CM CONTACT INFO.
[2021-10-18 15:18] VITALS: BP 117/69; PULSE 72; RESP 17; O2SAT 96
[2021-10-18] MEDS: hydrOXYzine HCL 25 MG TABLET PO (18:05)
[2021-10-18 23:45] VITALS: BP 148/83; PULSE 63; RESP 18; TEMP 36.3; O2SAT 97
[2021-10-19 06:49] VITALS: BP 122/64; PULSE 72; RESP 18; TEMP 36.1; O2SAT 97
[2021-10-19] MEDS: Ascorbic Acid 500 MG TABLET PO (08:54)
--- NOTE | 2021-10-19 13:22 | HO.PM.IMPN ---
Subjective Subjective Date of Service: 10/19/21 Interval History: Laying in the bed, looks comfortable not in distress No reported other overnight events. Systemic review: No fever, chills or weakness No chest pain, palpitation No shortness of breath or coughing No abdominal pain, nausea or vomiting Physical Exam Vital Signs: Vital Signs: Last Vital Signs Temp 97 F 10/19/21 06:49 Pulse 72 10/19/21 06:49 Resp 18 10/19/21 06:49 BP 122/64 10/19/21 06:49 Pulse Ox 97 10/19/21 06:49 BMI result Body Mass Index 22.1 Const: Other: Constitutional : interactive upon waking up, disoriented at baseline not in distress Neck : Normal inspection, Supple Respiratory : Chest moving bilaterally, no respiratory distress Neurological : Alert & disoriented, No focal deficit Objective Data Active Medications Ascorbic Acid (Ascorbic Acid 500 Mg Tablet) 500 mg PO DAILY [facility] Last Admin: 10/19/21 08:54 Dose: 500 mg Documented by: FRANCIE Guaifenesin/Dextromethorphan (Guaifenesin Dm 100/10/5 Ml 5 Ml Syrup) 10 ml PO Q6H PRN PRN Reason: cough Hydroxyzine HCl (Hydroxyzine Hcl 25 Mg Tablet) 25 mg PO Q6H PRN PRN Reason: agitation Last Admin: 10/18/21 18:05 Dose: 25 mg Documented by: DANITA Olanzapine (Olanzapine 5 Mg Tablet) 5 mg PO BEDTIME [facility] Last Admin: 10/18/21 22:36 Dose: Not Given Documented by: BENITA Non-Admin Reason: Patient Asleep Trazodone HCl (Trazodone Hcl 50 Mg Tablet) 50 mg PO BEDTIME [facility] Last Admin: 10/18/21 22:36 Dose: Not Given Documented by: BENITA Non-Admin Reason: Patient Asleep Labs CBC & Chem 7: 09/07/21 05:36 09/07/21 05:36 Assessment and Plan (1) Dementia with behavioral disturbance: Status: Acute Plan 75 yo M who presented to the ED on 05/23/21 for AMS and failure to thrive. He was initially going to be placed at a facility, but on 05/29 was noted to have cough and a CXR revealed a new R base infiltrate concerning for aspiration pneumonia; has completed Abx course and now awaiting placement, received COVID vaccine developed symptomatic Covid-19 infection 08/17/21 without hypoxia Covid-19 infection resolved dementia with behavioral disturbances Use Seroquel as needed, redirection No behavioral issues noted in last several days patient has no capacity, continue current psych meds aspiration pneumonia no recurrent episode,completed treatment continue nectar thick and ground/mech [NDD2] diet suspected scabies treated with permethrin x 2 doses, no new rash noted stage 2 pressure ucler (L heel / M medial heel) and stage I bilateral buttock- present on admission continue wound care foam dressing to heel, continue barrier cream, + air loss bed + high-protein diet (on supplements) dispo awaiting LTC placement Quality Stroke Does the patient have a stroke diagnosis?: No VTE Prior VTE?: No VTE Risk Level:: Medical - moderate - high VTE Device Contraindication: N/A - Device Ordered VTE Drug Contraindication: N/A - Med Ordered
--- NOTE | 2021-10-19 13:47 | MHC.CM.PN ---
nurse manager of case management note electronic medical record reviewed along with case discussed withy staff nurse and hospitlaist . case héctor discussed with [facility] regarding [employer] application she told me that the rodriguez reported she faxed chanel in a individual application care manger to continue to follow dontae referrls out but they are waiting for the completion of [employer] application and approval
[2021-10-19 16:00] VITALS: RESP 18
[2021-10-19] MEDS: hydrOXYzine HCL 25 MG TABLET PO (20:13)
[2021-10-19] MEDS: OLANZapine 5 MG TABLET PO (20:13)
[2021-10-19] MEDS: traZODone HCL 50 MG TABLET PO (20:13)
[2021-10-19 23:41] VITALS: BP 122/57; PULSE 71; RESP 18; TEMP 36.6; O2SAT 94
[2021-10-20 07:30] VITALS: BP 109/61; PULSE 54; RESP 20; TEMP 36.4; O2SAT 93
[2021-10-20] MEDS: Ascorbic Acid 500 MG TABLET PO (10:06)
--- NOTE | 2021-10-20 12:01 | P.PNIM_ITS ---
Subjective Subjective Date of Service: 10/20/21 Interval History: Laying in the bed, looks comfortable not in distress No reported other overnight events. Systemic review: No fever, chills or weakness No chest pain, palpitation No shortness of breath or coughing No abdominal pain, nausea or vomiting Physical Exam Vital Signs: Vital Signs: Last Vital Signs Temp 97.5 F 10/20/21 07:30 Pulse 54 10/20/21 07:30 Resp 20 10/20/21 07:30 BP 109/61 10/20/21 07:30 Pulse Ox 93 10/20/21 07:30 BMI result Body Mass Index 22.1 Const: Other: Constitutional : interactive upon waking up, disoriented at baseline not in distress Neck : Normal inspection, Supple Respiratory : Chest moving bilaterally, no respiratory distress Neurological : Alert & disoriented, No focal deficit Objective Data Active Medications Ascorbic Acid (Ascorbic Acid 500 Mg Tablet) 500 mg PO DAILY [facility] Last Admin: 10/20/21 10:06 Dose: 500 mg Documented by: FRANCIE Guaifenesin/Dextromethorphan (Guaifenesin Dm 100/10/5 Ml 5 Ml Syrup) 10 ml PO Q6H PRN PRN Reason: cough Hydroxyzine HCl (Hydroxyzine Hcl 25 Mg Tablet) 25 mg PO Q6H PRN PRN Reason: agitation Last Admin: 10/19/21 20:13 Dose: 25 mg Documented by: GIL Olanzapine (Olanzapine 5 Mg Tablet) 5 mg PO BEDTIME [facility] Last Admin: 10/19/21 20:13 Dose: 5 mg Documented by: GIL Trazodone HCl (Trazodone Hcl 50 Mg Tablet) 50 mg PO BEDTIME [facility] Last Admin: 10/19/21 20:13 Dose: 50 mg Documented by: GIL Labs CBC & Chem 7: 09/07/21 05:36 09/07/21 05:36 Assessment and Plan (1) Dementia with behavioral disturbance: Status: Acute Plan 75 yo M who presented to the ED on 05/23/21 for AMS and failure to thrive. He was initially going to be placed at a facility, but on 05/29 was noted to have cough and a CXR revealed a new R base infiltrate concerning for aspiration pneumonia; has completed Abx course and now awaiting placement, received COVID vaccine developed symptomatic Covid-19 infection 08/17/21 without hypoxia Covid-19 infection resolved dementia with behavioral disturbances Use Seroquel as needed, redirection No behavioral issues noted in last several days patient has no capacity, continue current psych meds aspiration pneumonia no recurrent episode,completed treatment continue nectar thick and ground/mech [NDD2] diet suspected scabies treated with permethrin x 2 doses, no new rash noted stage 2 pressure ucler (L heel / M medial heel) and stage I bilateral buttock- present on admission continue wound care foam dressing to heel, continue barrier cream, + air loss bed + high-protein diet (on supplements) dispo awaiting LTC placement Quality Stroke Does the patient have a stroke diagnosis?: No VTE Prior VTE?: No VTE Risk Level:: Medical - moderate - high VTE Device Contraindication: N/A - Device Ordered VTE Drug Contraindication: N/A - Med Ordered
[2021-10-20 15:16] VITALS: BP 145/70; PULSE 86; RESP 14; TEMP 36.2; O2SAT 98
[2021-10-20] MEDS: OLANZapine 5 MG TABLET PO (20:37)
[2021-10-20] MEDS: traZODone HCL 50 MG TABLET PO (20:37)
[2021-10-20 23:14] VITALS: BP 121/61; PULSE 71; RESP 14; TEMP 36.6; O2SAT 94
[2021-10-21 06:48] VITALS: BP 122/64; PULSE 72; RESP 18; TEMP 36.1; O2SAT 96
[2021-10-21] MEDS: Ascorbic Acid 500 MG TABLET PO (07:19)
--- NOTE | 2021-10-21 11:03 | P.PNIM_ITS ---
Subjective Subjective Date of Service: 10/21/21 Interval History: Laying in the bed, looks comfortable not in distress No reported other overnight events. Systemic review: No fever, chills or weakness No chest pain, palpitation No shortness of breath or coughing No abdominal pain, nausea or vomiting Physical Exam Vital Signs: Vital Signs: Last Vital Signs Temp 97 F 10/21/21 06:48 Pulse 72 10/21/21 06:48 Resp 18 10/21/21 06:48 BP 122/64 10/21/21 06:48 Pulse Ox 96 10/21/21 06:48 BMI result Body Mass Index 22.1 Const: Other: Constitutional : interactive upon waking up, disoriented at baseline not in distress Neck : Normal inspection, Supple Respiratory : Chest moving bilaterally, no respiratory distress Neurological : Alert & disoriented, No focal deficit Objective Data Active Medications Ascorbic Acid (Ascorbic Acid 500 Mg Tablet) 500 mg PO DAILY [facility] Last Admin: 10/21/21 07:19 Dose: 500 mg Documented by: FRANCIE Guaifenesin/Dextromethorphan (Guaifenesin Dm 100/10/5 Ml 5 Ml Syrup) 10 ml PO Q6H PRN PRN Reason: cough Hydroxyzine HCl (Hydroxyzine Hcl 25 Mg Tablet) 25 mg PO Q6H PRN PRN Reason: agitation Last Admin: 10/19/21 20:13 Dose: 25 mg Documented by: GIL Olanzapine (Olanzapine 5 Mg Tablet) 5 mg PO BEDTIME [facility] Last Admin: 10/20/21 20:37 Dose: 5 mg Documented by: KELSEY Trazodone HCl (Trazodone Hcl 50 Mg Tablet) 50 mg PO BEDTIME [facility] Last Admin: 10/20/21 20:37 Dose: 50 mg Documented by: KELSEY Labs CBC & Chem 7: 09/07/21 05:36 09/07/21 05:36 Assessment and Plan (1) Dementia with behavioral disturbance: Status: Acute Plan 75 yo M who presented to the ED on 05/23/21 for AMS and failure to thrive. He was initially going to be placed at a facility, but on 05/29 was noted to have cough and a CXR revealed a new R base infiltrate concerning for aspiration pneumonia; has completed Abx course and now awaiting placement, received COVID vaccine developed symptomatic Covid-19 infection 08/17/21 without hypoxia Covid-19 infection resolved dementia with behavioral disturbances Use Seroquel as needed, redirection No behavioral issues noted in last several days patient has no capacity, continue current psych meds aspiration pneumonia no recurrent episode,completed treatment continue nectar thick and ground/mech [NDD2] diet suspected scabies treated with permethrin x 2 doses, no new rash noted stage 2 pressure ucler (L heel / M medial heel) and stage I bilateral buttock- present on admission continue wound care foam dressing to heel, continue barrier cream, + air loss bed + high-protein diet (on supplements) dispo awaiting LTC placement Quality Stroke Does the patient have a stroke diagnosis?: No VTE Prior VTE?: No VTE Risk Level:: Medical - moderate - high VTE Device Contraindication: N/A - Device Ordered VTE Drug Contraindication: N/A - Med Ordered
[2021-10-21 15:47] VITALS: BP 133/72; PULSE 69; RESP 18; TEMP 37.1; O2SAT 97
[2021-10-21] MEDS: OLANZapine 5 MG TABLET PO (20:23)
[2021-10-21] MEDS: traZODone HCL 50 MG TABLET PO (20:23)
[2021-10-21 23:48] VITALS: BP 100/55; PULSE 63; RESP 18; TEMP 36.6; O2SAT 95
[2021-10-22 08:00] VITALS: BP 135/67; PULSE 55; RESP 15; TEMP 36.4; O2SAT 93
[2021-10-22] MEDS: Ascorbic Acid 500 MG TABLET PO (10:02)
--- NOTE | 2021-10-22 11:42 | P.PNIM_ITS ---
Subjective Subjective Date of Service: 10/22/21 Interval History: Laying in the bed, looks comfortable not in distress No reported other overnight events. Systemic review: No fever, chills or weakness No chest pain, palpitation No shortness of breath or coughing No abdominal pain, nausea or vomiting Physical Exam Vital Signs: Vital Signs: Last Vital Signs Temp 97.5 F 10/22/21 08:00 Pulse 55 10/22/21 08:00 Resp 15 10/22/21 08:00 BP 135/67 10/22/21 08:00 Pulse Ox 93 10/22/21 08:00 BMI result Body Mass Index 22.1 Const: Other: Constitutional : interactive upon waking up, disoriented at baseline not in distress Neck : Normal inspection, Supple Respiratory : Chest moving bilaterally, no respiratory distress Neurological : Alert & disoriented, No focal deficit Objective Data Active Medications Ascorbic Acid (Ascorbic Acid 500 Mg Tablet) 500 mg PO DAILY [facility] Last Admin: 10/22/21 10:02 Dose: 500 mg Documented by: AURORA Guaifenesin/Dextromethorphan (Guaifenesin Dm 100/10/5 Ml 5 Ml Syrup) 10 ml PO Q6H PRN PRN Reason: cough Hydroxyzine HCl (Hydroxyzine Hcl 25 Mg Tablet) 25 mg PO Q6H PRN PRN Reason: agitation Last Admin: 10/19/21 20:13 Dose: 25 mg Documented by: GIL Olanzapine (Olanzapine 5 Mg Tablet) 5 mg PO BEDTIME [facility] Last Admin: 10/21/21 20:23 Dose: 5 mg Documented by: KELSEY Trazodone HCl (Trazodone Hcl 50 Mg Tablet) 50 mg PO BEDTIME [facility] Last Admin: 10/21/21 20:23 Dose: 50 mg Documented by: KELSEY Labs CBC & Chem 7: 09/07/21 05:36 09/07/21 05:36 Assessment and Plan (1) Dementia with behavioral disturbance: Status: Acute Plan 75 yo M who presented to the ED on 05/23/21 for AMS and failure to thrive. He was initially going to be placed at a facility, but on 05/29 was noted to have cough and a CXR revealed a new R base infiltrate concerning for aspiration pneumonia; has completed Abx course and now awaiting placement, received COVID vaccine developed symptomatic Covid-19 infection 1/21/22 without hypoxia Covid-19 infection resolved dementia with behavioral disturbances Use Seroquel as needed, redirection No behavioral issues noted in last several days patient has no capacity, continue current psych meds aspiration pneumonia no recurrent episode,completed treatment continue nectar thick and ground/mech [NDD2] diet suspected scabies treated with permethrin x 2 doses, no new rash noted stage 2 pressure ucler (L heel / M medial heel) and stage I bilateral buttock- present on admission continue wound care foam dressing to heel, continue barrier cream, + air loss bed + high-protein diet (on supplements) dispo awaiting LTC placement Quality Stroke Does the patient have a stroke diagnosis?: No VTE Prior VTE?: No VTE Risk Level:: Medical - moderate - high VTE Device Contraindication: N/A - Device Ordered VTE Drug Contraindication: N/A - Med Ordered
[2021-10-22] MEDS: traZODone HCL 50 MG TABLET PO (21:13)
[2021-10-22] MEDS: OLANZapine 5 MG TABLET PO (21:13)
[2021-10-22 21:18] VITALS: BP 153/74; PULSE 58; RESP 18; TEMP 36.9; O2SAT 95
[2021-10-22 23:51] VITALS: BP 134/65; PULSE 61; RESP 18; TEMP 36.5; O2SAT 96
[2021-10-23 07:41] VITALS: BP 112/57; PULSE 65; RESP 17; TEMP 36.4; O2SAT 92
[2021-10-23] MEDS: Ascorbic Acid 500 MG TABLET PO (08:57)
--- NOTE | 2021-10-23 12:18 | P.PNIM_ITS ---
Subjective Subjective Date of Service: 10/23/21 Interval History: Laying in the bed, looks comfortable not in distress No reported other overnight events. Systemic review: No fever, chills or weakness No chest pain, palpitation No shortness of breath or coughing No abdominal pain, nausea or vomiting Physical Exam Vital Signs: Vital Signs: Last Vital Signs Temp 97.5 F 10/23/21 07:41 Pulse 65 10/23/21 07:41 Resp 17 10/23/21 07:41 BP 112/57 L 10/23/21 07:41 Pulse Ox 92 10/23/21 07:41 BMI result Body Mass Index 22.1 Const: Other: Constitutional : interactive upon waking up, disoriented at baseline not in distress Neck : Normal inspection, Supple Respiratory : Chest moving bilaterally, no respiratory distress Neurological : Alert & disoriented, No focal deficit Objective Data Active Medications Ascorbic Acid (Ascorbic Acid 500 Mg Tablet) 500 mg PO DAILY [facility] Last Admin: 10/23/21 08:57 Dose: 500 mg Documented by: JESSICA Guaifenesin/Dextromethorphan (Guaifenesin Dm 100/10/5 Ml 5 Ml Syrup) 10 ml PO Q6H PRN PRN Reason: cough Hydroxyzine HCl (Hydroxyzine Hcl 25 Mg Tablet) 25 mg PO Q6H PRN PRN Reason: agitation Last Admin: 10/19/21 20:13 Dose: 25 mg Documented by: GIL Olanzapine (Olanzapine 5 Mg Tablet) 5 mg PO BEDTIME [facility] Last Admin: 10/22/21 21:13 Dose: 5 mg Documented by: MARÍA Trazodone HCl (Trazodone Hcl 50 Mg Tablet) 50 mg PO BEDTIME [facility] Last Admin: 10/22/21 21:13 Dose: 50 mg Documented by: MARÍA Labs CBC & Chem 7: 09/07/21 05:36 09/07/21 05:36 Assessment and Plan (1) Dementia with behavioral disturbance: Status: Acute Plan 76 yo M who presented to the ED on 05/23/21 for AMS and failure to thrive. He was initially going to be placed at a facility, but on 05/29 was noted to have co ugh and a CXR revealed a new R base infiltrate concerning for aspiration pneumonia; has completed Abx course and now awaiting placement, received COVID vaccine developed symptomatic Covid-19 infection 08/17/21 without hypoxia Covid-19 infection resolved dementia with behavioral disturbances Use Seroquel as needed, redirection No behavioral issues noted in last several days patient has no capacity, continue current psych meds aspiration pneumonia no recurrent episode,completed treatment continue nectar thick and ground/mech [NDD2] diet suspected scabies treated with permethrin x 2 doses, no new rash noted stage 2 pressure ucler (L heel / M medial heel) and stage I bilateral buttock- present on admission continue wound care foam dressing to heel, continue barrier cream, + air loss bed + high-protein diet (on supplements) dispo awaiting LTC placement Quality Stroke Does the patient have a stroke diagnosis?: No VTE Prior VTE?: No VTE Risk Level:: Medical - moderate - high VTE Device Contraindication: N/A - Device Ordered VTE Drug Contraindication: N/A - Med Ordered
--- NOTE | 2021-10-23 12:59 | MHC.CM.PN ---
Addendum entered by Nathalia Koroma 10/23/21 13:59: NURSE ASBESTOS SHINGLE ROOFER NOTE CLINICAL UPDATES SENT TO THE FOLLOWING FACILITIES [facility] [place] FOR EXTEND CARE. [facility],ANNABELLE CUE[facility] AT [facility], [facility], [facility], [facility], [facility], [facility] Original Note: NURSE ASBESTOS SHINGLE ROOFER NOTE ELECTRONIC MEDICAL RECORD REVIEWED ALONG WITH CASE DISCUSSED WITH STAFF NURSE AND HOSPITALIST, [employer] OPERATOR SACHIN PERES LEGAL APPOINTMENT GUARDIAN/CONSERVATOR FOR BOTH SEWARDS 1. LEGAL GUARDIAN/CONSERVATOR ATTY , SACHIN HERNANDEZ ([phone]) INDIVIDUAL [employer] APPLICATION RE-SUBMITTED LAST WEEK BY THE GUARDIAN, AND NOW IN PROCESS, PENDING APPROVAL 2. T/C TO [facility] THEY ARE UNABLE TO ACCESS [employer] FOR THIS PATIENT THEY ARE NOT INVOLVED 3/ FINANCIAL COUNSELORS RECOMMENDED I CALL GUARDIAN AND HAVE HER CHECK INTO THE [employer] PROCESSING, AND CONTACT [facility] CASH OFFICE WORKER EARLE CLEARY .[phone] 4. T/C TO GUARDIAN/CONSERVATOR [employer] OPERATOR SACHIN PERES. SPOKE WITH THE CHEESE CUTTER AND WOULD ONLTY TAKE MY NAME AND PHONE NUMBER AND HAVE HER CALL ME BACK , UNABLE TO LEAVE ANY MESSAGE 'DISCHARGE PLAN CARDIOTHORACIC ICU RN CARE PLACEMENT ONCE FINANCIAL ISSUES SECURED RETIREMENT CARE PLACEMENTS- ( [facility], [facility], [facility] extended [facility] [place] [facility] , [facility], [facility]
[2021-10-23] MEDS: guaiFENesin DM 100/10/5 ML 5 ML SYRUP 10 ML PO (14:53)
[2021-10-23 15:11] VITALS: BP 115/59; PULSE 79; RESP 16; TEMP 37.2; O2SAT 94
[2021-10-23] MEDS: traZODone HCL 50 MG TABLET PO (19:30)
[2021-10-23] MEDS: OLANZapine 5 MG TABLET PO (19:30)
[2021-10-24 02:52] VITALS: BP 140/76; PULSE 67; RESP 18; TEMP 37.1; O2SAT 98
[2021-10-24 07:57] VITALS: BP 143/67; PULSE 70; RESP 18; TEMP 36.4; O2SAT 96
--- NOTE | 2021-10-24 09:57 | HO.PM.IMPN ---
Subjective Subjective Date of Service: 10/24/21 Interval History: no complaints Cardiovascular Cardiovascular: Reports no additional cardiovascular complaints Respiratory Respiratory: Reports no additional respiratory complaints Physical Exam Vital Signs: Vital Signs: Last Vital Signs Temp 97.6 F 10/24/21 07:57 Pulse 70 10/24/21 07:57 Resp 18 10/24/21 07:57 BP 143/67 H 10/24/21 07:57 Pulse Ox 96 10/24/21 07:57 BMI result Body Mass Index 22.1 Const Other: Constitutional :? interactive upon waking up, disoriented at baseline not in distress Neck : Normal inspection, Supple Respiratory :? Chest moving bilaterally, no respiratory distress Neurological : Alert & disoriented, No focal deficit Objective Data Active Medications Ascorbic Acid (Ascorbic Acid 500 Mg Tablet) 500 mg PO DAILY [facility] Last Admin: 10/23/21 08:57 Dose: 500 mg Documented by: JESSICA Guaifenesin/Dextromethorphan (Guaifenesin Dm 100/10/5 Ml 5 Ml Syrup) 10 ml PO Q6H PRN PRN Reason: cough Last Admin: 10/23/21 14:53 Dose: 10 ml Documented by: KELSEY Hydroxyzine HCl (Hydroxyzine Hcl 25 Mg Tablet) 25 mg PO Q6H PRN PRN Reason: agitation Last Admin: 10/19/21 20:13 Dose: 25 mg Documented by: GIL Olanzapine (Olanzapine 5 Mg Tablet) 5 mg PO BEDTIME [facility] Last Admin: 10/23/21 19:30 Dose: 5 mg Documented by: KELSEY Trazodone HCl (Trazodone Hcl 50 Mg Tablet) 50 mg PO BEDTIME [facility] Last Admin: 10/23/21 19:30 Dose: 50 mg Documented by: KELSEY Labs CBC & Chem 7: 09/07/21 05:36 09/07/21 05:36 Assessment and Plan (1) Dementia with behavioral disturbance: Status: Acute Plan 76 yo M who presented to the ED on 05/23/21 for AMS and failure to thrive. He was initially going to be placed at a facility, but on 05/29 was noted to have cough and a CXR revealed a new R base infiltrate concerning for aspiration pneumonia; has completed Abx course and now awaiting placement, received COVID vaccine developed symptomatic Covid-19 infection 08/17/21 without hypoxia Covid-19 infection resolved dementia with behavioral disturbances Use Seroquel as needed, redirection No behavioral issues noted in last several days patient has no capacity, continue current psych meds aspiration pneumonia no recurrent episode,completed treatment continue nectar thick and ground/mech [NDD2] diet suspected scabies treated with permethrin x 2 doses, no new rash noted stage 2 pressure ucler (L heel / M medial heel) and stage I bilateral buttock- present on admission continue wound care foam dressing to heel, continue barrier cream, + air loss bed + high-protein diet (on supplements) dispo awaiting LTC placement Quality Stroke Does the patient have a stroke diagnosis?: No VTE Prior VTE?: No VTE Risk Level:: Medical - moderate - high VTE Device Contraindication: N/A - Device Ordered VTE Drug Contraindication: N/A - Med Ordered
[2021-10-24] MEDS: Ascorbic Acid 500 MG TABLET PO (11:51)
[2021-10-24 15:10] VITALS: BP 160/85; PULSE 74; RESP 17; O2SAT 94
[2021-10-24] MEDS: OLANZapine 5 MG TABLET PO (21:57)
[2021-10-24] MEDS: traZODone HCL 50 MG TABLET PO (21:57)
[2021-10-25 00:56] VITALS: BP 157/79; PULSE 68; RESP 17; TEMP 36.2; O2SAT 95
[2021-10-25 07:19] VITALS: BP 122/64; PULSE 72; RESP 18; TEMP 36.1; O2SAT 96
--- NOTE | 2021-10-25 10:14 | HO.PM.IMPN ---
Subjective Subjective Date of Service: 10/25/21 Interval History: no complaints Cardiovascular Cardiovascular: Reports no additional cardiovascular complaints Respiratory Respiratory: Reports no additional respiratory complaints Physical Exam Vital Signs: Vital Signs: Last Vital Signs Temp 97 F 10/25/21 07:19 Pulse 72 10/25/21 07:19 Resp 18 10/25/21 07:19 BP 122/64 10/25/21 07:19 Pulse Ox 96 10/25/21 07:19 BMI result Body Mass Index 22.1 Constitutional :? interactive upon waking up, disoriented at baseline not in distress Neck : Normal inspection, Supple Respiratory :? Chest moving bilaterally, no respiratory distress Neurological : Alert & disoriented, No focal deficit Objective Data Active Medications Ascorbic Acid (Ascorbic Acid 500 Mg Tablet) 500 mg PO DAILY [facility] Last Admin: 10/24/21 11:51 Dose: 500 mg Documented by: SCOTT Guaifenesin/Dextromethorphan (Guaifenesin Dm 100/10/5 Ml 5 Ml Syrup) 10 ml PO Q6H PRN PRN Reason: cough Last Admin: 10/23/21 14:53 Dose: 10 ml Documented by: KELSEY Hydroxyzine HCl (Hydroxyzine Hcl 25 Mg Tablet) 25 mg PO Q6H PRN PRN Reason: agitation Last Admin: 10/19/21 20:13 Dose: 25 mg Documented by: GIL Olanzapine (Olanzapine 5 Mg Tablet) 5 mg PO BEDTIME [facility] Last Admin: 10/24/21 21:57 Dose: 5 mg Documented by: MARÍA Trazodone HCl (Trazodone Hcl 50 Mg Tablet) 50 mg PO BEDTIME [facility] Last Admin: 10/24/21 21:57 Dose: 50 mg Documented by: MARÍA Labs CBC & Chem 7: 09/07/21 05:36 09/07/21 05:36 Assessment and Plan (1) Dementia with behavioral disturbance: Status: Acute Plan 76 yo M who presented to the ED on 05/23/21 for AMS and failure to thrive. He was initially going to be placed at a facility, but on 05/29 was noted to have cough and a CXR revealed a new R base infiltrate concerning for aspiration pneumonia; has completed Abx course and now awaiting placement, received COVID vaccine developed symptomatic Covid-19 infection 08/17/21 without hypoxia Covid-19 infection resolved dementia with behavioral disturbances Use Seroquel as needed, redirection No behavioral issues noted in last several days patient has no capacity, continue current psych meds aspiration pneumonia no recurrent episode,completed treatment continue nectar thick and ground/mech [NDD2] diet suspected scabies treated with permethrin x 2 doses, no new rash noted stage 2 pressure ucler (L heel / M medial heel) and stage I bilateral buttock- present on admission continue wound care foam dressing to heel, continue barrier cream, + air loss bed + high-protein diet (on supplements) dispo awaiting LTC placement Quality Stroke Does the patient have a stroke diagnosis?: No VTE Prior VTE?: No VTE Risk Level:: Medical - moderate - high VTE Device Contraindication: N/A - Device Ordered VTE Drug Contraindication: N/A - Med Ordered
[2021-10-25] MEDS: Ascorbic Acid 500 MG TABLET PO (14:58)
[2021-10-25 15:01] VITALS: BP 134/69; PULSE 71; RESP 18; TEMP 33.5; O2SAT 97
[2021-10-25] MEDS: traZODone HCL 50 MG TABLET PO (20:26)
[2021-10-25] MEDS: OLANZapine 5 MG TABLET PO (20:26)
[2021-10-25 23:24] VITALS: BP 130/70; PULSE 69; RESP 18; TEMP 37.1; O2SAT 99
[2021-10-26 06:42] VITALS: BP 122/68; PULSE 68; RESP 18; TEMP 36.6; O2SAT 96
[2021-10-26] MEDS: Ascorbic Acid 500 MG TABLET PO (07:55)
--- NOTE | 2021-10-26 09:14 | HO.PM.IMPN ---
Subjective Subjective Date of Service: 10/26/21 Interval History: no complaints Cardiovascular Cardiovascular: Reports no additional cardiovascular complaints Respiratory Respiratory: Reports no additional respiratory complaints Physical Exam Vital Signs: Vital Signs: Last Vital Signs Temp 97.9 F 10/26/21 06:42 Pulse 68 10/26/21 06:42 Resp 18 10/26/21 06:42 BP 122/68 10/26/21 06:42 Pulse Ox 96 10/26/21 06:42 BMI result Body Mass Index 22.1 Constitutional :? interactive upon waking up, disoriented at baseline not in distress Neck : Normal inspection, Supple Respiratory :? Chest moving bilaterally, no respiratory distress Neurological : Alert & disoriented, No focal deficit Objective Data Active Medications Ascorbic Acid (Ascorbic Acid 500 Mg Tablet) 500 mg PO DAILY [facility] Last Admin: 10/26/21 07:55 Dose: 500 mg Documented by: AURORA Guaifenesin/Dextromethorphan (Guaifenesin Dm 100/10/5 Ml 5 Ml Syrup) 10 ml PO Q6H PRN PRN Reason: cough Last Admin: 10/23/21 14:53 Dose: 10 ml Documented by: KELSEY Hydroxyzine HCl (Hydroxyzine Hcl 25 Mg Tablet) 25 mg PO Q6H PRN PRN Reason: agitation Last Admin: 10/19/21 20:13 Dose: 25 mg Documented by: GIL Olanzapine (Olanzapine 5 Mg Tablet) 5 mg PO BEDTIME [facility] Last Admin: 10/25/21 20:26 Dose: 5 mg Documented by: KELSEY Trazodone HCl (Trazodone Hcl 50 Mg Tablet) 50 mg PO BEDTIME [facility] Last Admin: 10/25/21 20:26 Dose: 50 mg Documented by: KELSEY Labs CBC & Chem 7: 09/07/21 05:36 09/07/21 05:36 Assessment and Plan (1) Dementia with behavioral disturbance: Status: Acute Plan 76 yo M who presented to the ED on 05/23/21 for AMS and failure to thrive. He was initially going to be placed at a facility, but on 05/29 was noted to have cough and a CXR revealed a new R base infiltrate concerning for aspiration pneumonia; has completed Abx course and now awaiting placement, received COVID vaccine developed symptomatic Covid-19 infection 08/17/21 without hypoxia Covid-19 infection resolved dementia with behavioral disturbances Use Seroquel as needed, redirection No behavioral issues noted in last several days patient has no capacity, continue current psych meds aspiration pneumonia no recurrent episode,completed treatment continue nectar thick and ground/mech [NDD2] diet suspected scabies treated with permethrin x 2 doses, no new rash noted stage 2 pressure ucler (L heel / M medial heel) and stage I bilateral buttock- present on admission continue wound care foam dressing to heel, continue barrier cream, + air loss bed + high-protein diet (on supplements) dispo awaiting LTC placement Quality Stroke Does the patient have a stroke diagnosis?: No VTE Prior VTE?: No VTE Risk Level:: Medical - moderate - high VTE Device Contraindication: N/A - Device Ordered VTE Drug Contraindication: N/A - Med Ordered
[2021-10-26 15:37] VITALS: BP 128/71; PULSE 70; TEMP 36.9; O2SAT 98
--- NOTE | 2021-10-26 18:02 | PC.NURSE ---
Patient awake, disoriented to place, time and situation but knows his own name. Patient is cooperative. Denies c/o. Lungs CTA anteriorly, diminished posteriorly. Up ad conner to bathroom. Sitter with patient.
[2021-10-26] MEDS: OLANZapine 5 MG TABLET PO (20:20)
[2021-10-26] MEDS: traZODone HCL 50 MG TABLET PO (20:20)
[2021-10-27] VITALS: RESP 18
[2021-10-27 08:00] VITALS: BP 115/59; PULSE 62; RESP 18; TEMP 36.4; O2SAT 96
--- NOTE | 2021-10-27 08:33 | P.PNIM_ITS ---
Subjective Subjective Date of Service: 10/27/21 Interval History: no complaints Cardiovascular Cardiovascular: Reports no additional cardiovascular complaints Respiratory Respiratory: Reports no additional respiratory complaints Physical Exam Vital Signs: Vital Signs: Last Vital Signs Temp 97.6 F 10/27/21 08:00 Pulse 62 10/27/21 08:00 Resp 18 10/27/21 08:00 BP 115/59 L 10/27/21 08:00 Pulse Ox 96 10/27/21 08:00 BMI result Body Mass Index 22.1 Constitutional :? interactive upon waking up, disoriented at baseline not in distress Neck : Normal inspection, Supple Respiratory :? Chest moving bilaterally, no respiratory distress Neurological : Alert & disoriented, No focal deficit Objective Data Active Medications Ascorbic Acid (Ascorbic Acid 500 Mg Tablet) 500 mg PO DAILY [facility] Last Admin: 10/26/21 07:55 Dose: 500 mg Documented by: AURORA Guaifenesin/Dextromethorphan (Guaifenesin Dm 100/10/5 Ml 5 Ml Syrup) 10 ml PO Q6H PRN PRN Reason: cough Last Admin: 10/23/21 14:53 Dose: 10 ml Documented by: KELSEY Hydroxyzine HCl (Hydroxyzine Hcl 25 Mg Tablet) 25 mg PO Q6H PRN PRN Reason: agitation Last Admin: 10/19/21 20:13 Dose: 25 mg Documented by: GIL Olanzapine (Olanzapine 5 Mg Tablet) 5 mg PO BEDTIME [facility] Last Admin: 10/26/21 20:20 Dose: 5 mg Documented by: DEMI Trazodone HCl (Trazodone Hcl 50 Mg Tablet) 50 mg PO BEDTIME [facility] Last Admin: 10/26/21 20:20 Dose: 50 mg Documented by: DEMI Labs CBC & Chem 7: 09/07/21 05:36 09/07/21 05:36 Assessment and Plan (1) Dementia with behavioral disturbance: Status: Acute Plan 76 yo M who presented to the ED on 05/23/21 for AMS and failure to thrive. He was initially going to be placed at a facility, but on 05/29 was noted to have cough and a CXR revealed a new R base infiltrate concerning for aspiration pneumonia; has completed Abx course and now awaiting placement, received COVID vaccine developed symptomatic Covid-19 infection 08/17/21 without hypoxia Covid-19 infection resolved dementia with behavioral disturbances Use Seroquel as needed, redirection No behavioral issues noted in last several days patient has no capacity, continue current psych meds aspiration pneumonia no recurrent episode,completed treatment continue nectar thick and ground/mech [NDD2] diet suspected scabies treated with permethrin x 2 doses, no new rash noted stage 2 pressure ucler (L heel / M medial heel) and stage I bilateral buttock- present on admission continue wound care foam dressing to heel, continue barrier cream, + air loss bed + high-protein diet (on supplements) dispo awaiting LTC placement Quality Stroke Does the patient have a stroke diagnosis?: No VTE Prior VTE?: No VTE Risk Level:: Medical - moderate - high VTE Device Contraindication: N/A - Device Ordered VTE Drug Contraindication: N/A - Med Ordered
[2021-10-27] MEDS: Ascorbic Acid 500 MG TABLET PO (11:34)
[2021-10-27 15:10] VITALS: BP 178/79; PULSE 63; RESP 18; TEMP 37.2; O2SAT 97
[2021-10-27] MEDS: OLANZapine 5 MG TABLET PO (20:52)
[2021-10-27] MEDS: traZODone HCL 50 MG TABLET PO (20:52)
[2021-10-28] MEDS: guaiFENesin DM 100/10/5 ML 5 ML SYRUP 10 ML PO (00:08)
[2021-10-28] MEDS: hydrOXYzine HCL 25 MG TABLET PO ×2 (00:08→14:53)
[2021-10-28] MEDS: Ascorbic Acid 500 MG TABLET PO (07:53)
[2021-10-28 08:00] VITALS: BP 148/69; PULSE 72; RESP 18; TEMP 36.4; O2SAT 96
--- NOTE | 2021-10-28 11:42 | HO.PM.IMPN ---
Subjective Subjective Date of Service: 10/28/21 Interval History: no complaints Cardiovascular Cardiovascular: Reports no additional cardiovascular complaints Respiratory Respiratory: Reports no additional respiratory complaints Physical Exam Vital Signs: Vital Signs: Last Vital Signs Temp 97.6 F 10/28/21 08:00 Pulse 72 10/28/21 08:00 Resp 18 10/28/21 08:00 BP 148/69 H 10/28/21 08:00 Pulse Ox 96 10/28/21 08:00 BMI result Body Mass Index 22.1 Constitutional :? interactive upon waking up, disoriented at baseline not in distress Neck : Normal inspection, Supple Respiratory :? Chest moving bilaterally, no respiratory distress Neurological : Alert & disoriented, No focal deficit Objective Data Active Medications Ascorbic Acid (Ascorbic Acid 500 Mg Tablet) 500 mg PO DAILY [facility] Last Admin: 10/28/21 07:53 Dose: 500 mg Documented by: DANITA Guaifenesin/Dextromethorphan (Guaifenesin Dm 100/10/5 Ml 5 Ml Syrup) 10 ml PO Q6H PRN PRN Reason: cough Last Admin: 10/28/21 00:08 Dose: 10 ml Documented by: DEMI Hydroxyzine HCl (Hydroxyzine Hcl 25 Mg Tablet) 25 mg PO Q6H PRN PRN Reason: agitation Last Admin: 10/28/21 00:08 Dose: 25 mg Documented by: DEMI Olanzapine (Olanzapine 5 Mg Tablet) 5 mg PO BEDTIME [facility] Last Admin: 10/27/21 20:52 Dose: 5 mg Documented by: DEMI Trazodone HCl (Trazodone Hcl 50 Mg Tablet) 50 mg PO BEDTIME [facility] Last Admin: 10/27/21 20:52 Dose: 50 mg Documented by: DEMI Labs CBC & Chem 7: 09/07/21 05:36 09/07/21 05:36 Assessment and Plan (1) Dementia with behavioral disturbance: Status: Acute Plan 76 yo M who presented to the ED on 05/23/21 for AMS and failure to thrive. He was initially going to be placed at a facility, but on 05/29 was noted to have cough and a CXR revealed a new R base infiltrate concerning for aspiration pneumonia; has completed Abx course and now awaiting placement, received COVID vaccine developed symptomatic Covid-19 infection 08/17/21 without hypoxia Covid-19 infection resolved dementia with behavioral disturbances Use Seroquel as needed, redirection No behavioral issues noted in last several days patient has no capacity, continue current psych meds aspiration pneumonia no recurrent episode,completed treatment continue nectar thick and ground/mech [NDD2] diet suspected scabies treated with permethrin x 2 doses, no new rash noted stage 2 pressure ucler (L heel / M medial heel) and stage I bilateral buttock- present on admission continue wound care foam dressing to heel, continue barrier cream, + air loss bed + high-protein diet (on supplements) dispo awaiting LTC placement Quality Stroke Does the patient have a stroke diagnosis?: No VTE Prior VTE?: No VTE Risk Level:: Medical - moderate - high VTE Device Contraindication: N/A - Device Ordered VTE Drug Contraindication: N/A - Med Ordered
[2021-10-28 15:12] VITALS: BP 149/72; PULSE 63; RESP 18; TEMP 36.4; O2SAT 97
[2021-10-28] MEDS: OLANZapine 5 MG TABLET PO (19:35)
[2021-10-28] MEDS: traZODone HCL 50 MG TABLET PO (19:36)
[2021-10-29] VITALS: BP 129/61; PULSE 57; RESP 18; TEMP 36.1; O2SAT 95
[2021-10-29 07:05] VITALS: BP 132/74; PULSE 68; RESP 18; TEMP 36.1; O2SAT 98
--- NOTE | 2021-10-29 09:12 | HO.PM.IMPN ---
Subjective Subjective Date of Service: 10/29/21 Interval History: no complaints Cardiovascular Cardiovascular: Reports no additional cardiovascular complaints Respiratory Respiratory: Reports no additional respiratory complaints Physical Exam Vital Signs: Vital Signs: Last Vital Signs Temp 97 F 10/29/21 07:05 Pulse 68 10/29/21 07:05 Resp 18 10/29/21 07:05 BP 132/74 10/29/21 07:05 Pulse Ox 98 10/29/21 07:05 BMI result Body Mass Index 22.1 Constitutional :? interactive upon waking up, disoriented at baseline not in distress Neck : Normal inspection, Supple Respiratory :? Chest moving bilaterally, no respiratory distress Neurological : Alert & disoriented, No focal deficit Objective Data Active Medications Ascorbic Acid (Ascorbic Acid 500 Mg Tablet) 500 mg PO DAILY [facility] Last Admin: 10/28/21 07:53 Dose: 500 mg Documented by: DANITA Guaifenesin/Dextromethorphan (Guaifenesin Dm 100/10/5 Ml 5 Ml Syrup) 10 ml PO Q6H PRN PRN Reason: cough Last Admin: 10/28/21 00:08 Dose: 10 ml Documented by: DEMI Hydroxyzine HCl (Hydroxyzine Hcl 25 Mg Tablet) 25 mg PO Q6H PRN PRN Reason: agitation Last Admin: 10/28/21 14:53 Dose: 25 mg Documented by: DANITA Olanzapine (Olanzapine 5 Mg Tablet) 5 mg PO BEDTIME [facility] Last Admin: 10/28/21 19:35 Dose: 5 mg Documented by: BENITA Trazodone HCl (Trazodone Hcl 50 Mg Tablet) 50 mg PO BEDTIME [facility] Last Admin: 10/28/21 19:36 Dose: 50 mg Documented by: BENITA Labs CBC & Chem 7: 09/07/21 05:36 09/07/21 05:36 Assessment and Plan (1) Dementia with behavioral disturbance: Status: Acute Plan 76 yo M who presented to the ED on 05/23/21 for AMS and failure to thrive. He was initially going to be placed at a facility, but on 05/29 was noted to have cough and a CXR revealed a new R base infiltrate concerning for aspiration pneumonia; has completed Abx course and now awaiting placement, received COVID vaccine developed symptomatic Covid-19 infection 08/17/21 without hypoxia Covid-19 infection resolved dementia with behavioral disturbances Use Seroquel as needed, redirection No behavioral issues noted in last several days patient has no capacity, continue current psych meds aspiration pneumonia no recurrent episode,completed treatment continue nectar thick and ground/mech [NDD2] diet suspected scabies treated with permethrin x 2 doses, no new rash noted stage 2 pressure ucler (L heel / M medial heel) and stage I bilateral buttock- present on admission continue wound care foam dressing to heel, continue barrier cream, + air loss bed + high-protein diet (on supplements) dispo awaiting LTC placement Quality Stroke Does the patient have a stroke diagnosis?: No VTE Prior VTE?: No VTE Risk Level:: Medical - moderate - high VTE Device Contraindication: N/A - Device Ordered VTE Drug Contraindication: N/A - Med Ordered
[2021-10-29] MEDS: Ascorbic Acid 500 MG TABLET PO (10:02)
[2021-10-29 14:56] VITALS: BP 113/60; PULSE 59; RESP 18; TEMP 36.6; O2SAT 99
[2021-10-30] VITALS: BP 130/65; PULSE 66; RESP 20; TEMP 36.8; O2SAT 96
[2021-10-30 07:09] VITALS: BP 116/66; PULSE 56; RESP 18; TEMP 36.5; O2SAT 98
[2021-10-30] MEDS: Ascorbic Acid 500 MG TABLET PO (08:52)
--- NOTE | 2021-10-30 08:58 | P.PNIM_ITS ---
Subjective Subjective Date of Service: 10/30/21 Interval History: no complaints Cardiovascular Cardiovascular: Reports no additional cardiovascular complaints Respiratory Respiratory: Reports no additional respiratory complaints Physical Exam Vital Signs: Vital Signs: Last Vital Signs Temp 97.7 F 10/30/21 07:09 Pulse 56 10/30/21 07:09 Resp 18 10/30/21 07:09 BP 116/66 10/30/21 07:09 Pulse Ox 98 10/30/21 07:09 BMI result Body Mass Index 22.1 Constitutional :? interactive upon waking up, disoriented at baseline not in distress Neck : Normal inspection, Supple Respiratory :? Chest moving bilaterally, no respiratory distress Neurological : Alert & disoriented, No focal deficit Objective Data Active Medications Ascorbic Acid (Ascorbic Acid 500 Mg Tablet) 500 mg PO DAILY [facility] Last Admin: 10/30/21 08:52 Dose: 500 mg Documented by: SCOTT Guaifenesin/Dextromethorphan (Guaifenesin Dm 100/10/5 Ml 5 Ml Syrup) 10 ml PO Q6H PRN PRN Reason: cough Last Admin: 10/28/21 00:08 Dose: 10 ml Documented by: DEMI Hydroxyzine HCl (Hydroxyzine Hcl 25 Mg Tablet) 25 mg PO Q6H PRN PRN Reason: agitation Last Admin: 10/28/21 14:53 Dose: 25 mg Documented by: DANITA Olanzapine (Olanzapine 5 Mg Tablet) 5 mg PO BEDTIME [facility] Last Admin: 10/29/21 22:23 Dose: Not Given Documented by: BENITA Non-Admin Reason: Patient Asleep Trazodone HCl (Trazodone Hcl 50 Mg Tablet) 50 mg PO BEDTIME [facility] Last Admin: 10/29/21 22:23 Dose: Not Given Documented by: BENITA Non-Admin Reason: Patient Asleep Labs CBC & Chem 7: 09/07/21 05:36 09/07/21 05:36 Assessment and Plan (1) Dementia with behavioral disturbance: Status: Acute Plan 76 yo M who presented to the ED on 05/23/21 for AMS and failure to thrive. He was initially going to be placed at a facility, but on 05/29 was noted to have cough and a CXR revealed a new R base infiltrate concerning for aspiration pneumonia; has completed Abx course and now awaiting placement, received COVID vaccine developed symptomatic Covid-19 infection 08/17/21 without hypoxia Covid-19 infection resolved dementia with behavioral disturbances Use Seroquel as needed, redirection No behavioral issues noted in last several days patient has no capacity, continue current psych meds aspiration pneumonia no recurrent episode,completed treatment continue nectar thick and ground/mech [NDD2] diet suspected scabies treated with permethrin x 2 doses, no new rash noted stage 2 pressure ucler (L heel / M medial heel) and stage I bilateral buttock- present on admission continue wound care foam dressing to heel, continue barrier cream, + air loss bed + high-protein diet (on supplements) dispo awaiting LTC placement Quality Stroke Does the patient have a stroke diagnosis?: No VTE Prior VTE?: No VTE Risk Level:: Medical - moderate - high VTE Device Contraindication: N/A - Device Ordered VTE Drug Contraindication: N/A - Med Ordered
--- NOTE | 2021-10-30 09:37 | MHC.CM.PN ---
This insurance writer placed call to Niyah Akers. Able to speak with her re: [employer] Shawn status. Patient has [employer] ID #- [id number]. Patient has spend down of $6,532 of which can be used at LTC for a spend down. Niyah would like patient and to be placed together and local if possible.
--- NOTE | 2021-10-30 10:07 | MHC.CM.PN ---
Addendum entered by Dionna Raines 10/30/21 10:12: PATIENT HAS A $6500 SPEND DOWN WHICH CAN BE USED TOWARDS HIS LTC Original Note: PER [employer] APPLICATION ARCHITECT CONVERSATION WITH GUARDIAN/CONSERVATOR, [place] NUMBER IS (SAME HIS SPOUSE'S) [phone] THIS MECHANICAL ENGINEERING INTERN SPOKE WITH MAVIS OF THE [facility] TO REQUEST A LOCAL LTC BED OFFER. PATIENT INFO ADDED TO NEW REFERRAL. COVID VAX X 2 AND MAY NEED A BOOSTER HERE IS OFFERED A BED. CASE MANAGEMENT FOLLOWING PLEASE [place] [id number]
[2021-10-30 15:56] VITALS: BP 125/69; PULSE 60; RESP 16; TEMP 36.7; O2SAT 97
[2021-10-30 23:12] VITALS: BP 106/50; PULSE 65; RESP 16; TEMP 36.8; O2SAT 95
[2021-10-31 07:33] VITALS: BP 132/70; PULSE 56; RESP 18; TEMP 36.4; O2SAT 96
[2021-10-31 08:58] VITALS: BP 132/70; PULSE 56; O2SAT 96
[2021-10-31] MEDS: Ascorbic Acid 500 MG TABLET PO (09:37)
--- NOTE | 2021-10-31 11:47 | MHC.CM.PN ---
Addendum entered by Dionna Raines 10/31/21 12:08: MESSAGE LEFT FOR GUARDIAN ATTY SACHIN KLEIN REQUESTING A [place] APPLICATION FOR PATIENT AND SPOUSE BE FAXED TO [phone] FOR REVIEW AT [facility] FOR A BED OFFER. Original Note: [employer] FORMS FAXED TO [facility] ([phone]) TO [phone] PER FACILITY REQUEST.
--- NOTE | 2021-10-31 12:05 | P.PNIM_ITS ---
Subjective Subjective Date of Service: 10/31/21 Interval History: Laying in the bed, looks comfortable not in distress No reported other overnight events. Systemic review: No fever, chills or weakness No chest pain, palpitation No shortness of breath or coughing No abdominal pain, nausea or vomiting Physical Exam Vital Signs: Vital Signs: Last Vital Signs Temp 97.6 F 10/31/21 07:33 Pulse 56 10/31/21 08:58 Resp 18 10/31/21 07:33 BP 132/70 10/31/21 08:58 Pulse Ox 96 10/31/21 08:58 BMI result Body Mass Index 22.1 Const: Other: Constitutional : interactive upon waking up, disoriented at baseline not in distress Neck : Normal inspection, Supple Respiratory : Chest moving bilaterally, no respiratory distress Neurological : Alert & disoriented, No focal deficit Objective Data Active Medications Ascorbic Acid (Ascorbic Acid 500 Mg Tablet) 500 mg PO DAILY [facility] Last Admin: 10/31/21 09:37 Dose: 500 mg Documented by: SCOTT Guaifenesin/Dextromethorphan (Guaifenesin Dm 100/10/5 Ml 5 Ml Syrup) 10 ml PO Q6H PRN PRN Reason: cough Last Admin: 10/28/21 00:08 Dose: 10 ml Documented by: DEMI Hydroxyzine HCl (Hydroxyzine Hcl 25 Mg Tablet) 25 mg PO Q6H PRN PRN Reason: agitation Last Admin: 10/28/21 14:53 Dose: 25 mg Documented by: DANITA Olanzapine (Olanzapine 5 Mg Tablet) 5 mg PO BEDTIME [facility] Last Admin: 10/30/21 21:41 Dose: Not Given Documented by: CLARENCE Non-Admin Reason: Patient Refused Trazodone HCl (Trazodone Hcl 50 Mg Tablet) 50 mg PO BEDTIME [facility] Last Admin: 10/30/21 21:41 Dose: Not Given Documented by: CLARENCE Non-Admin Reason: Patient Refused Labs CBC & Chem 7: 09/07/21 05:36 09/07/21 05:36 Assessment and Plan (1) Dementia with behavioral disturbance: Status: Acute Plan 76 yo M who presented to the ED on 05/23/21 for AMS and failure to thrive. He was initially going to be placed at a facility, but on 05/29 was noted to have cough and a CXR revealed a new R base infiltrate concerning for aspiration pneumonia; has completed Abx course and now awaiting placement, received COVID vaccine developed symptomatic Covid-19 infection 08/17/21 without hypoxia Covid-19 infection resolved dementia with behavioral disturbances Use Seroquel as needed, redirection No behavioral issues noted in last several days patient has no capacity, continue current psych meds aspiration pneumonia no recurrent episode,completed treatment continue nectar thick and ground/mech [NDD2] diet suspected scabies treated with permethrin x 2 doses, no new rash noted stage 2 pressure ucler (L heel / M medial heel) and stage I bilateral buttock- present on admission continue wound care foam dressing to heel, continue barrier cream, + air loss bed + high-protein diet (on supplements) dispo awaiting LTC placement Quality Stroke Does the patient have a stroke diagnosis?: No VTE Prior VTE?: No VTE Risk Level:: Medical - moderate - high VTE Device Contraindication: N/A - Device Ordered VTE Drug Contraindication: N/A - Med Ordered
--- NOTE | 2021-10-31 13:01 | MHC.CLN ---
F/U CONTINUES WITH USUALLY GOOD INTAKE AT MEALS. OK TO CHANGE FROM ENSURE TID TO ENSURE BID. PROVIDES ADDITIONAL 70O KCAL, 40 G PROTEIN.
[2021-10-31 15:24] VITALS: BP 151/90; PULSE 64; RESP 18; TEMP 36.5; O2SAT 96
[2021-10-31] MEDS: OLANZapine 5 MG TABLET PO (20:26)
[2021-10-31] MEDS: traZODone HCL 50 MG TABLET PO (20:26)
[2021-11-01 07:16] VITALS: BP 143/79; PULSE 56; RESP 18; TEMP 36.4; O2SAT 96
--- NOTE | 2021-11-01 10:01 | P.PNIM_ITS ---
Subjective Subjective Date of Service: 11/01/21 Interval History: Laying in the bed, looks comfortable not in distress No reported other overnight events. Systemic review: No fever, chills or weakness No chest pain, palpitation No shortness of breath or coughing No abdominal pain, nausea or vomiting Physical Exam Vital Signs: Vital Signs: Last Vital Signs Temp 97.5 F 11/01/21 07:16 Pulse 56 11/01/21 07:16 Resp 18 11/01/21 07:16 BP 143/79 H 11/01/21 07:16 Pulse Ox 96 11/01/21 07:16 BMI result Body Mass Index 22.1 Const: Other: Constitutional : interactive upon waking up, disoriented at baseline not in distress Neck : Normal inspection, Supple Respiratory : Chest moving bilaterally, no respiratory distress Neurological : Alert & disoriented, No focal deficit Objective Data Active Medications Ascorbic Acid (Ascorbic Acid 500 Mg Tablet) 500 mg PO DAILY [facility] Last Admin: 10/31/21 09:37 Dose: 500 mg Documented by: SCOTT Guaifenesin/Dextromethorphan (Guaifenesin Dm 100/10/5 Ml 5 Ml Syrup) 10 ml PO Q6H PRN PRN Reason: cough Last Admin: 10/28/21 00:08 Dose: 10 ml Documented by: DEMI Hydroxyzine HCl (Hydroxyzine Hcl 25 Mg Tablet) 25 mg PO Q6H PRN PRN Reason: agitation Last Admin: 10/28/21 14:53 Dose: 25 mg Documented by: DANITA Olanzapine (Olanzapine 5 Mg Tablet) 5 mg PO BEDTIME [facility] Last Admin: 10/31/21 20:26 Dose: 5 mg Documented by: ARELY Labs CBC & Chem 7: 09/07/21 05:36 09/07/21 05:36 Assessment and Plan (1) Dementia with behavioral disturbance: Status: Acute Plan 76 yo M who presented to the ED on 05/23/21 for AMS and failure to thrive. He was initially going to be placed at a facility, but on 05/29 was noted to have cough and a CXR revealed a new R base infiltrate concerning for aspiration pneum onia; has completed Abx course and now awaiting placement, received COVID vaccine developed symptomatic Covid-19 infection 08/17/21 without hypoxia Covid-19 infection resolved dementia with behavioral disturbances Use Seroquel as needed, redirection No behavioral issues noted in last several days patient has no capacity, continue current psych meds aspiration pneumonia no recurrent episode,completed treatment continue nectar thick and ground/mech [NDD2] diet suspected scabies treated with permethrin x 2 doses, no new rash noted stage 2 pressure ucler (L heel / M medial heel) and stage I bilateral buttock- present on admission continue wound care foam dressing to heel, continue barrier cream, + air loss bed + high-protein diet (on supplements) dispo awaiting LTC placement Quality Stroke Does the patient have a stroke diagnosis?: No VTE Prior VTE?: No VTE Risk Level:: Medical - moderate - high VTE Device Contraindication: N/A - Device Ordered VTE Drug Contraindication: N/A - Med Ordered
[2021-11-01 15:44] VITALS: BP 135/64; PULSE 72; RESP 15; TEMP 36.7; O2SAT 99
[2021-11-01] MEDS: OLANZapine 5 MG TABLET PO (20:25)
[2021-11-01] MEDS: hydrOXYzine HCL 25 MG TABLET PO (20:25)
[2021-11-01 23:51] VITALS: BP 145/74; PULSE 63; RESP 18; TEMP 36.5; O2SAT 97
[2021-11-02 07:56] VITALS: BP 125/76; PULSE 55; RESP 18; TEMP 36.3; O2SAT 97
[2021-11-02] MEDS: Ascorbic Acid 500 MG TABLET PO (08:43)
--- NOTE | 2021-11-02 10:23 | HO.PM.IMPN ---
Subjective Subjective Date of Service: 11/02/21 Interval History: sleeping in the bed, looks comfortable not in distress No reported other overnight events. Systemic review: No fever, chills or weakness No chest pain, palpitation No shortness of breath or coughing No abdominal pain, nausea or vomiting Physical Exam Vital Signs: Vital Signs: Last Vital Signs Temp 97.3 F 11/02/21 07:56 Pulse 55 11/02/21 07:56 Resp 18 11/02/21 07:56 BP 125/76 11/02/21 07:56 Pulse Ox 97 11/02/21 07:56 BMI result Body Mass Index 22.1 Const: Other: Constitutional : interactive upon waking up, disoriented at baseline not in distress Neck : Normal inspection, Supple Respiratory : Chest moving bilaterally, no respiratory distress Neurological : Alert & disoriented, No focal deficit Objective Data Active Medications Ascorbic Acid (Ascorbic Acid 500 Mg Tablet) 500 mg PO DAILY [facility] Last Admin: 11/02/21 08:43 Dose: 500 mg Documented by: GOLDEN Guaifenesin/Dextromethorphan (Guaifenesin Dm 100/10/5 Ml 5 Ml Syrup) 10 ml PO Q6H PRN PRN Reason: cough Last Admin: 10/28/21 00:08 Dose: 10 ml Documented by: DEMI Hydroxyzine HCl (Hydroxyzine Hcl 25 Mg Tablet) 25 mg PO Q6H PRN PRN Reason: agitation Last Admin: 11/01/21 20:25 Dose: 25 mg Documented by: SYLVIA Olanzapine (Olanzapine 5 Mg Tablet) 5 mg PO BEDTIME [facility] Last Admin: 11/01/21 20:25 Dose: 5 mg Documented by: SYLVIA Labs CBC & Chem 7: 09/07/21 05:36 09/07/21 05:36 Assessment and Plan (1) Dementia with behavioral disturbance: Status: Acute Plan 76 yo M who presented to the ED on 05/23/21 for AMS and failure to thrive. He was initially going to be placed at a facility, but on 05/29 was noted to have cough and a CXR revealed a new R base infiltrate concerning for aspiration pneumonia; has completed Abx course and now awaiting placement, received COVID vaccine developed symptomatic Covid-19 infection 08/17/21 without hypoxia Covid-19 infection resolved dementia with behavioral disturbances Use Seroquel as needed, redirection No behavioral issues noted in last several days patient has no capacity, continue current psych meds aspiration pneumonia no recurrent episode,completed treatment continue nectar thick and ground/mech [NDD2] diet suspected scabies treated with permethrin x 2 doses, no new rash noted stage 2 pressure ucler (L heel / M medial heel) and stage I bilateral buttock- present on admission continue wound care foam dressing to heel, continue barrier cream, + air loss bed + high-protein diet (on supplements) dispo awaiting LTC placement Quality Stroke Does the patient have a stroke diagnosis?: No VTE Prior VTE?: No VTE Risk Level:: Medical - moderate - high VTE Device Contraindication: N/A - Device Ordered VTE Drug Contraindication: N/A - Med Ordered
[2021-11-02 15:43] VITALS: BP 148/77; PULSE 60; RESP 18; TEMP 36.6; O2SAT 98
[2021-11-02] MEDS: OLANZapine 5 MG TABLET PO (20:48)
[2021-11-02 23:41] VITALS: BP 152/70; PULSE 68; RESP 16; TEMP 36.3; O2SAT 94
[2021-11-03 07:26] VITALS: BP 122/64; PULSE 69; RESP 18; TEMP 36.1
[2021-11-03] MEDS: Ascorbic Acid 500 MG TABLET PO (09:31)
--- NOTE | 2021-11-03 13:13 | P.PNIM_ITS ---
Subjective Subjective Date of Service: 11/03/21 Interval History: sleeping in the bed, looks comfortable not in distress No reported other overnight events. Systemic review: No fever, chills or weakness No chest pain, palpitation No shortness of breath or coughing No abdominal pain, nausea or vomiting Physical Exam Vital Signs: Vital Signs: Last Vital Signs Temp 97 F 11/03/21 07:26 Pulse 69 11/03/21 07:26 Resp 18 11/03/21 07:26 BP 122/64 11/03/21 07:26 Pulse Ox 94 11/02/21 23:41 BMI result Body Mass Index 22.1 Const: Other: Constitutional : interactive upon waking up, disoriented at baseline not in distress Neck : Normal inspection, Supple Respiratory : Chest moving bilaterally, no respiratory distress Neurological : Alert & disoriented, No focal deficit Objective Data Active Medications Ascorbic Acid (Ascorbic Acid 500 Mg Tablet) 500 mg PO DAILY [facility] Last Admin: 11/03/21 09:31 Dose: 500 mg Documented by: SARA Guaifenesin/Dextromethorphan (Guaifenesin Dm 100/10/5 Ml 5 Ml Syrup) 10 ml PO Q6H PRN PRN Reason: cough Last Admin: 10/28/21 00:08 Dose: 10 ml Documented by: DEMI Hydroxyzine HCl (Hydroxyzine Hcl 25 Mg Tablet) 25 mg PO Q6H PRN PRN Reason: agitation Last Admin: 11/01/21 20:25 Dose: 25 mg Documented by: SYLVIA Olanzapine (Olanzapine 5 Mg Tablet) 5 mg PO BEDTIME [facility] Last Admin: 11/02/21 20:48 Dose: 5 mg Documented by: EOLDIA Labs CBC & Chem 7: 09/07/21 05:36 09/07/21 05:36 Assessment and Plan (1) Dementia with behavioral disturbance: Status: Acute Plan 76 yo M who presented to the ED on 05/23/21 for AMS and failure to thrive. He was initially going to be placed at a facility, but on 05/29 was noted to have cough and a CXR revealed a new R base infiltrate concerning for aspiration pn eum[place]; has completed Abx course and now awaiting placement, received COVID vaccine developed symptomatic Covid-19 infection 08/17/21 without hypoxia Covid-19 infection resolved dementia with behavioral disturbances Use Seroquel as needed, redirection No behavioral issues noted in last several days patient has no capacity, continue current psych meds aspiration pneumonia no recurrent episode,completed treatment continue nectar thick and ground/mech [NDD2] diet suspected scabies treated with permethrin x 2 doses, no new rash noted stage 2 pressure ucler (L heel / M medial heel) and stage I bilateral buttock- present on admission continue wound care foam dressing to heel, continue barrier cream, + air loss bed + high-protein diet (on supplements) dispo awaiting LTC placement Quality Stroke Does the patient have a stroke diagnosis?: No VTE Prior VTE?: No VTE Risk Level:: Medical - moderate - high VTE Device Contraindication: N/A - Device Ordered VTE Drug Contraindication: N/A - Med Ordered
[2021-11-03 16:00] VITALS: BP 121/63; PULSE 67; RESP 18; TEMP 37.1; O2SAT 97
[2021-11-03] MEDS: OLANZapine 5 MG TABLET PO (23:23)
[2021-11-03] MEDS: hydrOXYzine HCL 25 MG TABLET PO (23:23)
[2021-11-04 07:50] VITALS: BP 119/57; PULSE 65; RESP 20; TEMP 36.3; O2SAT 96
[2021-11-04] MEDS: Ascorbic Acid 500 MG TABLET PO (10:53)
--- NOTE | 2021-11-04 11:29 | HO.PM.IMPN ---
Subjective Subjective Date of Service: 11/04/21 Interval History: laying down in the bed, looks comfortable not in distress No reported other overnight events. Systemic review: No fever, chills or weakness No chest pain, palpitation No shortness of breath or coughing No abdominal pain, nausea or vomiting Physical Exam Vital Signs: Vital Signs: Last Vital Signs Temp 97.4 F 11/04/21 07:50 Pulse 65 11/04/21 07:50 Resp 20 11/04/21 07:50 BP 119/57 L 11/04/21 07:50 Pulse Ox 96 11/04/21 07:50 BMI result Body Mass Index 22.1 Const: Other: Constitutional : interactive upon waking up, disoriented at baseline not in distress Neck : Normal inspection, Supple Respiratory : Chest moving bilaterally, no respiratory distress Neurological : Alert & disoriented, No focal deficit Objective Data Active Medications Ascorbic Acid (Ascorbic Acid 500 Mg Tablet) 500 mg PO DAILY [facility] Last Admin: 11/04/21 10:53 Dose: 500 mg Documented by: DANITA Guaifenesin/Dextromethorphan (Guaifenesin Dm 100/10/5 Ml 5 Ml Syrup) 10 ml PO Q6H PRN PRN Reason: cough Last Admin: 10/28/21 00:08 Dose: 10 ml Documented by: DEMI Hydroxyzine HCl (Hydroxyzine Hcl 25 Mg Tablet) 25 mg PO Q6H PRN PRN Reason: agitation Last Admin: 11/03/21 23:23 Dose: 25 mg Documented by: ELODIA Olanzapine (Olanzapine 5 Mg Tablet) 5 mg PO BEDTIME [facility] Last Admin: 11/03/21 23:23 Dose: 5 mg Documented by: ELODIA Labs CBC & Chem 7: 09/07/21 05:36 09/07/21 05:36 Assessment and Plan (1) Dementia with behavioral disturbance: Status: Acute Plan 76 yo M who presented to the ED on 05/23/21 for AMS and failure to thrive. He was initially going to be placed at a facility, but on 05/29 was noted to have cough and a CXR revealed a new R base infiltrate concerning for aspiration pneumonia; has completed Abx course and now awaiting placement, received COVID vaccine developed symptomatic Covid-19 infection 08/17/21 without hypoxia Covid-19 infection resolved dementia with behavioral disturbances Use Seroquel as needed, redirection No behavioral issues noted in last several days patient has no capacity, continue current psych meds aspiration pneumonia no recurrent episode,completed treatment continue nectar thick and ground/mech [NDD2] diet suspected scabies treated with permethrin x 2 doses, no new rash noted stage 2 pressure ucler (L heel / M medial heel) and stage I bilateral buttock- present on admission continue wound care foam dressing to heel, continue barrier cream, + air loss bed + high-protein diet (on supplements) dispo awaiting LTC placement Quality Stroke Does the patient have a stroke diagnosis?: No VTE Prior VTE?: No VTE Risk Level:: Medical - moderate - high VTE Device Contraindication: N/A - Device Ordered VTE Drug Contraindication: N/A - Med Ordered
[2021-11-04 16:00] VITALS: BP 121/66; PULSE 68; RESP 18; TEMP 36.3; O2SAT 97
[2021-11-04] MEDS: OLANZapine 5 MG TABLET PO (19:50)
[2021-11-04 23:26] VITALS: BP 114/62; PULSE 75; RESP 18; TEMP 36.8; O2SAT 98
[2021-11-05] MEDS: hydrOXYzine HCL 25 MG TABLET PO (02:59)
[2021-11-05 07:06] VITALS: BP 117/60; PULSE 61; RESP 18; TEMP 36.3; O2SAT 95
[2021-11-05] MEDS: Ascorbic Acid 500 MG TABLET PO (09:58)
--- NOTE | 2021-11-05 14:04 | HO.PM.IMPN ---
Subjective Subjective Date of Service: 11/05/21 Interval History: laying down in the bed, looks comfortable not in distress No reported other overnight events. Systemic review: No fever, chills or weakness No chest pain, palpitation No shortness of breath or coughing No abdominal pain, nausea or vomiting Physical Exam Vital Signs: Vital Signs: Last Vital Signs Temp 97.4 F 11/05/21 07:06 Pulse 61 11/05/21 07:06 Resp 18 11/05/21 07:06 BP 117/60 11/05/21 07:06 Pulse Ox 95 11/05/21 07:06 BMI result Body Mass Index 22.1 Const: Other: Constitutional : interactive upon waking up, disoriented at baseline not in distress Neck : Normal inspection, Supple Respiratory : Chest moving bilaterally, no respiratory distress Neurological : Alert & disoriented, No focal deficit Objective Data Active Medications Ascorbic Acid (Ascorbic Acid 500 Mg Tablet) 500 mg PO DAILY [facility] Last Admin: 11/05/21 09:58 Dose: 500 mg Documented by: SARA Guaifenesin/Dextromethorphan (Guaifenesin Dm 100/10/5 Ml 5 Ml Syrup) 10 ml PO Q6H PRN PRN Reason: cough Last Admin: 10/28/21 00:08 Dose: 10 ml Documented by: DEMI Hydroxyzine HCl (Hydroxyzine Hcl 25 Mg Tablet) 25 mg PO Q6H PRN PRN Reason: agitation Last Admin: 11/05/21 02:59 Dose: 25 mg Documented by: MELODY Olanzapine (Olanzapine 5 Mg Tablet) 5 mg PO BEDTIME [facility] Last Admin: 11/04/21 19:50 Dose: 5 mg Documented by: MELODY Labs CBC & Chem 7: 09/07/21 05:36 09/07/21 05:36 Assessment and Plan (1) Dementia with behavioral disturbance: Status: Acute Plan 76 yo M who presented to the ED on 05/23/21 for AMS and failure to thrive. He was initially going to be placed at a facility, but on 05/29 was noted to have cough and a CXR revealed a new R base infiltrate concerning for aspiration pneumonia; has completed Abx course and now awaiting placement, received COVID vaccine developed symptomatic Covid-19 infection 08/17/21 without hypoxia Covid-19 infection resolved dementia with behavioral disturbances Use Seroquel as needed, redirection No behavioral issues noted in last several days patient has no capacity, continue current psych meds aspiration pneumonia no recurrent episode,completed treatment continue nectar thick and ground/mech [NDD2] diet suspected scabies treated with permethrin x 2 doses, no new rash noted stage 2 pressure ucler (L heel / M medial heel) and stage I bilateral buttock- present on admission continue wound care foam dressing to heel, continue barrier cream, + air loss bed + high-protein diet (on supplements) dispo awaiting LTC placement Quality Stroke Does the patient have a stroke diagnosis?: No VTE Prior VTE?: No VTE Risk Level:: Medical - moderate - high VTE Device Contraindication: N/A - Device Ordered VTE Drug Contraindication: N/A - Med Ordered
[2021-11-05 15:59] VITALS: BP 117/56; PULSE 79; RESP 17; TEMP 36.5; O2SAT 99
[2021-11-05] MEDS: OLANZapine 5 MG TABLET PO (20:05)
[2021-11-06] VITALS: BP 126/60; PULSE 17; RESP 75; TEMP 36.2; O2SAT 97
[2021-11-06] MEDS: hydrOXYzine HCL 25 MG TABLET PO (02:12)
[2021-11-06 08:00] VITALS: BP 114/62; PULSE 94; RESP 20; TEMP 36.3; O2SAT 96
[2021-11-06] MEDS: Ascorbic Acid 500 MG TABLET PO (09:33)
--- NOTE | 2021-11-06 11:07 | HO.PM.IMPN ---
Subjective Subjective Date of Service: 11/06/21 Interval History: Sitting in his bed, looks comfortable not in distress No reported other overnight events. Systemic review: No fever, chills or weakness No chest pain, palpitation No shortness of breath or coughing No abdominal pain, nausea or vomiting Physical Exam Vital Signs: Vital Signs: Last Vital Signs Temp 97.3 F 11/06/21 08:00 Pulse 94 11/06/21 08:00 Resp 20 11/06/21 08:00 BP 114/62 11/06/21 08:00 Pulse Ox 96 11/06/21 08:00 BMI result Body Mass Index 22.1 Const: Other: Constitutional : interactive upon waking up, disoriented at baseline not in distress Neck : Normal inspection, Supple Respiratory : Chest moving bilaterally, no respiratory distress Neurological : Alert & disoriented, No focal deficit Objective Data Active Medications Ascorbic Acid (Ascorbic Acid 500 Mg Tablet) 500 mg PO DAILY [facility] Last Admin: 11/06/21 09:33 Dose: 500 mg Documented by: SARA Guaifenesin/Dextromethorphan (Guaifenesin Dm 100/10/5 Ml 5 Ml Syrup) 10 ml PO Q6H PRN PRN Reason: cough Last Admin: 10/28/21 00:08 Dose: 10 ml Documented by: DEMI Hydroxyzine HCl (Hydroxyzine Hcl 25 Mg Tablet) 25 mg PO Q6H PRN PRN Reason: agitation Last Admin: 11/06/21 02:12 Dose: 25 mg Documented by: MELODY Olanzapine (Olanzapine 5 Mg Tablet) 5 mg PO BEDTIME [facility] Last Admin: 11/05/21 20:05 Dose: 5 mg Documented by: MELODY Labs CBC & Chem 7: 09/07/21 05:36 09/07/21 05:36 Assessment and Plan (1) Dementia with behavioral disturbance: Status: Acute Plan 76 yo M who presented to the ED on 05/23/21 for AMS and failure to thrive. He was initially going to be placed at a facility, but on 05/29 was noted to have cough and a CXR revealed a new R base infiltrate concerning for aspiration pneumonia; has completed Abx course and now awaiting placement, received COVID vaccine developed symptomatic Covid-19 infection 08/17/21 without hypoxia Covid-19 infection resolved dementia with behavioral disturbances Use Seroquel as needed, redirection No behavioral issues noted in last several days patient has no capacity, continue current psych meds aspiration pneumonia no recurrent episode,completed treatment continue nectar thick and ground/mech [NDD2] diet suspected scabies treated with permethrin x 2 doses, no new rash noted stage 2 pressure ucler (L heel / M medial heel) and stage I bilateral buttock- present on admission continue wound care foam dressing to heel, continue barrier cream, + air loss bed + high-protein diet (on supplements) dispo awaiting LTC placement Quality Stroke Does the patient have a stroke diagnosis?: No VTE Prior VTE?: No VTE Risk Level:: Medical - moderate - high VTE Device Contraindication: N/A - Device Ordered VTE Drug Contraindication: N/A - Med Ordered
[2021-11-06 15:36] VITALS: BP 140/71; PULSE 68; RESP 17; TEMP 36.5; O2SAT 97
[2021-11-06 23:53] VITALS: BP 134/70; PULSE 73; RESP 18; TEMP 36.6; O2SAT 95
[2021-11-07 07:13] VITALS: BP 143/69; PULSE 56; RESP 20; TEMP 36.4; O2SAT 95
[2021-11-07] MEDS: Ascorbic Acid 500 MG TABLET PO (09:09)
--- NOTE | 2021-11-07 12:59 | MHC.CM.PN ---
[employer] UNABLE TO OFFER BED
--- NOTE | 2021-11-07 14:36 | HO.PM.IMPN ---
Subjective Subjective Date of Service: 11/07/21 Interval History: Sitting in his bed, looks comfortable not in distress No reported other overnight events. Systemic review: No fever, chills or weakness No chest pain, palpitation No shortness of breath or coughing No abdominal pain, nausea or vomiting Physical Exam Vital Signs: Vital Signs: Last Vital Signs Temp 97.6 F 11/07/21 07:13 Pulse 56 11/07/21 07:13 Resp 20 11/07/21 07:13 BP 143/69 H 11/07/21 07:13 Pulse Ox 95 11/07/21 07:13 BMI result Body Mass Index 22.1 Const: Other: Constitutional : interactive upon waking up, disoriented at baseline not in distress Neck : Normal inspection, Supple Respiratory : Chest moving bilaterally, no respiratory distress Neurological : Alert & disoriented, No focal deficit Objective Data Active Medications Ascorbic Acid (Ascorbic Acid 500 Mg Tablet) 500 mg PO DAILY [facility] Last Admin: 11/07/21 09:09 Dose: 500 mg Documented by: SARA Guaifenesin/Dextromethorphan (Guaifenesin Dm 100/10/5 Ml 5 Ml Syrup) 10 ml PO Q6H PRN PRN Reason: cough Last Admin: 10/28/21 00:08 Dose: 10 ml Documented by: DEMI Hydroxyzine HCl (Hydroxyzine Hcl 25 Mg Tablet) 25 mg PO Q6H PRN PRN Reason: agitation Last Admin: 11/06/21 02:12 Dose: 25 mg Documented by: MELODY Olanzapine (Olanzapine 5 Mg Tablet) 5 mg PO BEDTIME [facility] Last Admin: 11/06/21 21:16 Dose: Not Given Documented by: CLARENCE Non-Admin Reason: Patient Refused Labs CBC & Chem 7: 09/07/21 05:36 09/07/21 05:36 Assessment and Plan (1) Dementia with behavioral disturbance: Status: Acute Plan 76 yo M who presented to the ED on 05/23/21 for AMS and failure to thrive. He was initially going to be placed at a facility, but on 05/29 was noted to have cough and a CXR revealed a new R base infiltrate concerning for aspiration pneumonia; has completed Abx course and now awaiting placement, received COVID vaccine developed symptomatic Covid-19 infection 08/17/21 without hypoxia Covid-19 infection resolved dementia with behavioral disturbances Use Seroquel as needed, redirection No behavioral issues noted in last several days patient has no capacity, continue current psych meds aspiration pneumonia no recurrent episode,completed treatment continue nectar thick and ground/mech [NDD2] diet suspected scabies treated with permethrin x 2 doses, no new rash noted stage 2 pressure ucler (L heel / M medial heel) and stage I bilateral buttock- present on admission continue wound care foam dressing to heel, continue barrier cream, + air loss bed + high-protein diet (on supplements) dispo awaiting LTC placement Quality Stroke Does the patient have a stroke diagnosis?: No VTE Prior VTE?: No VTE Risk Level:: Medical - moderate - high VTE Device Contraindication: N/A - Device Ordered VTE Drug Contraindication: N/A - Med Ordered
[2021-11-07 15:18] VITALS: BP 150/72; PULSE 63; RESP 18; TEMP 36.9; O2SAT 96
[2021-11-07] MEDS: OLANZapine 5 MG TABLET PO (21:01)
[2021-11-07 23:39] VITALS: BP 112/79; PULSE 62; RESP 14; TEMP 37.1; O2SAT 96
[2021-11-08 07:19] VITALS: BP 159/74; PULSE 55; RESP 17; TEMP 36.3; O2SAT 97
[2021-11-08] MEDS: Ascorbic Acid 500 MG TABLET PO (08:50)
--- NOTE | 2021-11-08 10:29 | P.PNIM_ITS ---
Subjective Subjective Date of Service: 11/08/21 Interval History: no complaints Cardiovascular Cardiovascular: Reports no additional cardiovascular complaints Respiratory Respiratory: Reports no additional respiratory complaints Physical Exam Vital Signs: Vital Signs: Last Vital Signs Temp 97.3 F 11/08/21 07:19 Pulse 55 11/08/21 07:19 Resp 17 11/08/21 07:19 BP 159/74 H 11/08/21 07:19 Pulse Ox 97 11/08/21 07:19 BMI result Body Mass Index 22.1 Constitutional :? interactive upon waking up, disoriented at baseline not in distress Neck : Normal inspection, Supple Respiratory :? Chest moving bilaterally, no respiratory distress Neurological : Alert & disoriented, No focal deficit Objective Data Active Medications Ascorbic Acid (Ascorbic Acid 500 Mg Tablet) 500 mg PO DAILY [facility] Last Admin: 11/08/21 08:50 Dose: 500 mg Documented by: WANDY Guaifenesin/Dextromethorphan (Guaifenesin Dm 100/10/5 Ml 5 Ml Syrup) 10 ml PO Q6H PRN PRN Reason: cough Last Admin: 10/28/21 00:08 Dose: 10 ml Documented by: DEMI Hydroxyzine HCl (Hydroxyzine Hcl 25 Mg Tablet) 25 mg PO Q6H PRN PRN Reason: agitation Last Admin: 11/06/21 02:12 Dose: 25 mg Documented by: MELODY Olanzapine (Olanzapine 5 Mg Tablet) 5 mg PO BEDTIME [facility] Last Admin: 11/07/21 21:01 Dose: 5 mg Documented by: CLARENCE Labs CBC & Chem 7: 09/07/21 05:36 09/07/21 05:36 Assessment and Plan (1) Dementia with behavioral disturbance: Status: Acute Plan 76 yo M who presented to the ED on 05/23/21 for AMS and failure to thrive. He wa s initially going to be placed at a facility, but on 05/29 was noted to have cough and a CXR revealed a new R base infiltrate concerning for aspiration pneumonia; has completed Abx course and now awaiting placement, received COVID vaccine developed symptomatic Covid-19 infection 08/17/21 without hypoxia Covid-19 infection resolved dementia with behavioral disturbances Use Seroquel as needed, redirection No behavioral issues noted in last several days patient has no capacity, continue current psych meds aspiration pneumonia no recurrent episode,completed treatment continue nectar thick and ground/mech [NDD2] diet suspected scabies treated with permethrin x 2 doses, no new rash noted stage 2 pressure ucler (L heel / M medial heel) and stage I bilateral buttock- present on admission continue wound care foam dressing to heel, continue barrier cream, + air loss bed + high-protein diet (on supplements) dispo awaiting LTC placement Quality Stroke Does the patient have a stroke diagnosis?: No VTE Prior VTE?: No VTE Risk Level:: Medical - moderate - high VTE Device Contraindication: N/A - Device Ordered VTE Drug Contraindication: N/A - Med Ordered
[2021-11-08 16:00] VITALS: BP 173/89; PULSE 68; RESP 18; TEMP 36.7; O2SAT 96
[2021-11-08] MEDS: OLANZapine 5 MG TABLET PO (20:33)
[2021-11-08 23:15] VITALS: BP 157/74; PULSE 66; RESP 14; TEMP 36.2; O2SAT 97
[2021-11-09 07:12] VITALS: BP 122/69; PULSE 62; RESP 17; TEMP 36.1; O2SAT 99
--- NOTE | 2021-11-09 09:22 | HO.PM.IMPN ---
Subjective Subjective Date of Service: 11/09/21 Interval History: no complaints Cardiovascular Cardiovascular: Reports no additional cardiovascular complaints Respiratory Respiratory: Reports no additional respiratory complaints Physical Exam Vital Signs: Vital Signs: Last Vital Signs Temp 96.9 F 11/09/21 07:12 Pulse 62 11/09/21 07:12 Resp 17 11/09/21 07:12 BP 122/69 11/09/21 07:12 Pulse Ox 99 11/09/21 07:12 BMI result Body Mass Index 22.1 Constitutional :? interactive upon waking up, disoriented at baseline not in distress Neck : Normal inspection, Supple Respiratory :? Chest moving bilaterally, no respiratory distress Neurological : Alert & disoriented, No focal deficit Objective Data Active Medications Ascorbic Acid (Ascorbic Acid 500 Mg Tablet) 500 mg PO DAILY [facility] Last Admin: 11/09/21 09:00 Dose: Not Given Documented by: WANDY Non-Admin Reason: Patient Asleep Guaifenesin/Dextromethorphan (Guaifenesin Dm 100/10/5 Ml 5 Ml Syrup) 10 ml PO Q6H PRN PRN Reason: cough Last Admin: 10/28/21 00:08 Dose: 10 ml Documented by: DEMI Hydroxyzine HCl (Hydroxyzine Hcl 25 Mg Tablet) 25 mg PO Q6H PRN PRN Reason: agitation Last Admin: 11/06/21 02:12 Dose: 25 mg Documented by: MELODY Olanzapine (Olanzapine 5 Mg Tablet) 5 mg PO BEDTIME [facility] Last Admin: 11/08/21 20:33 Dose: 5 mg Documented by: ELODIA Labs CBC & Chem 7: 09/07/21 05:36 09/07/21 05:36 Assessment and Plan (1) Dementia with behavioral disturbance: Status: Acute Plan 76 yo M who presented to the ED on 05/23/21 for AMS and failure to thrive. He was initially going to be placed at a facility, but on 05/29 was noted to have cough and a CXR revealed a new R base infiltrate concerning for aspiration pneumonia; has completed Abx course and now awaiting placement, received COVID vaccine developed symptomatic Covid-19 infection 08/17/21 without hypoxia Covid-19 infection resolved dementia with behavioral disturbances Use Seroquel as needed, redirection No behavioral issues noted in last several days patient has no capacity, continue current psych meds aspiration pneumonia no recurrent episode,completed treatment continue nectar thick and ground/mech [NDD2] diet suspected scabies treated with permethrin x 2 doses, no new rash noted stage 2 pressure ucler (L heel / M medial heel) and stage I bilateral buttock- present on admission continue wound care foam dressing to heel, continue barrier cream, + air loss bed + high-protein diet (on supplements) dispo awaiting LTC placement Quality Stroke Does the patient have a stroke diagnosis?: No VTE Prior VTE?: No VTE Risk Level:: Medical - moderate - high VTE Device Contraindication: N/A - Device Ordered VTE Drug Contraindication: N/A - Med Ordered
[2021-11-09 15:56] VITALS: BP 120/78; PULSE 62; RESP 18; TEMP 36.9; O2SAT 98
[2021-11-09] MEDS: OLANZapine 5 MG TABLET PO (20:16)
[2021-11-09 23:37] VITALS: BP 135/71; PULSE 60; RESP 18; TEMP 36.2; O2SAT 97
--- NOTE | 2021-11-10 08:35 | P.PNIM_ITS ---
Subjective Subjective Date of Service: 11/10/21 Interval History: no complaints Cardiovascular Cardiovascular: Reports no additional cardiovascular complaints Respiratory Respiratory: Reports no additional respiratory complaints Physical Exam Vital Signs: Vital Signs: Last Vital Signs Temp 97.2 F 11/09/21 23:37 Pulse 60 11/09/21 23:37 Resp 18 11/09/21 23:37 BP 135/71 11/09/21 23:37 Pulse Ox 97 11/09/21 23:37 BMI result Body Mass Index 22.1 Constitutional :? interactive upon waking up, disoriented at baseline not in distress Neck : Normal inspection, Supple Respiratory :? Chest moving bilaterally, no respiratory distress Neurological : Alert & disoriented, No focal deficit Objective Data Active Medications Ascorbic Acid (Ascorbic Acid 500 Mg Tablet) 500 mg PO DAILY [facility] Last Admin: 11/10/21 08:28 Dose: Not Given Documented by: APURVA Non-Admin Reason: Patient Refused Guaifenesin/Dextromethorphan (Guaifenesin Dm 100/10/5 Ml 5 Ml Syrup) 10 ml PO Q6H PRN PRN Reason: cough Last Admin: 10/28/21 00:08 Dose: 10 ml Documented by: DEMI Hydroxyzine HCl (Hydroxyzine Hcl 25 Mg Tablet) 25 mg PO Q6H PRN PRN Reason: agitation Last Admin: 11/06/21 02:12 Dose: 25 mg Documented by: MELODY Olanzapine (Olanzapine 5 Mg Tablet) 5 mg PO BEDTIME [facility] Last Admin: 11/09/21 20:16 Dose: 5 mg Documented by: LUCIANARISM Labs CBC & Chem 7: 09/07/21 05:36 09/07/21 05:36 Assessment and Plan (1) Dementia with behavioral disturbance: Status: Acute Plan 76 yo M who presented to the ED on 05/23/21 for AMS and failure to thrive. He was initially going to be placed at a facility, but on 05/29 was noted to have cough and a CXR revealed a new R base infiltrate concerning for aspiration pneumonia; has completed Abx course and now awaiting placement, received COVID vaccine developed symptomatic Covid-19 infection 08/17/21 without hypoxia Covid-19 infection resolved dementia with behavioral disturbances Use Seroquel as needed, redirection No behavioral issues noted in last several days patient has no capacity, continue current psych meds aspiration pneumonia no recurrent episode,completed treatment continue nectar thick and ground/mech [NDD2] diet suspected scabies treated with permethrin x 2 doses, no new rash noted stage 2 pressure ucler (L heel / M medial heel) and stage I bilateral buttock- present on admission continue wound care foam dressing to heel, continue barrier cream, + air loss bed + high-protein diet (on supplements) dispo awaiting LTC placement Quality Stroke Does the patient have a stroke diagnosis?: No VTE Prior VTE?: No VTE Risk Level:: Medical - moderate - high VTE Device Contraindication: N/A - Device Ordered VTE Drug Contraindication: N/A - Med Ordered
[2021-11-10 15:37] VITALS: BP 117/58; PULSE 70; RESP 18; TEMP 36.2; O2SAT 95
[2021-11-10] MEDS: OLANZapine 5 MG TABLET PO (20:48)
[2021-11-10 23:26] VITALS: BP 185/75; PULSE 61; RESP 16; TEMP 36.4; O2SAT 96
[2021-11-11 07:02] VITALS: BP 117/59; PULSE 59; RESP 16; TEMP 36.6; O2SAT 98
--- NOTE | 2021-11-11 09:11 | HO.PM.IMPN ---
Subjective Subjective Date of Service: 11/11/21 Interval History: no complaints Cardiovascular Cardiovascular: Reports no additional cardiovascular complaints Respiratory Respiratory: Reports no additional respiratory complaints Physical Exam Vital Signs: Vital Signs: Last Vital Signs Temp 97.8 F 11/11/21 07:02 Pulse 59 11/11/21 07:02 Resp 16 11/11/21 07:02 BP 117/59 L 11/11/21 07:02 Pulse Ox 98 11/11/21 07:02 BMI result Body Mass Index 22.1 Constitutional :? interactive upon waking up, disoriented at baseline not in distress Neck : Normal inspection, Supple Respiratory :? Chest moving bilaterally, no respiratory distress Neurological : Alert & disoriented, No focal deficit Objective Data Active Medications Ascorbic Acid (Ascorbic Acid 500 Mg Tablet) 500 mg PO DAILY [facility] Last Admin: 11/10/21 08:28 Dose: Not Given Documented by: APURVA Non-Admin Reason: Patient Refused Guaifenesin/Dextromethorphan (Guaifenesin Dm 100/10/5 Ml 5 Ml Syrup) 10 ml PO Q6H PRN PRN Reason: cough Last Admin: 10/28/21 00:08 Dose: 10 ml Documented by: DEMI Hydroxyzine HCl (Hydroxyzine Hcl 25 Mg Tablet) 25 mg PO Q6H PRN PRN Reason: agitation Last Admin: 11/06/21 02:12 Dose: 25 mg Documented by: MELODY Olanzapine (Olanzapine 5 Mg Tablet) 5 mg PO BEDTIME [facility] Last Admin: 11/10/21 20:48 Dose: 5 mg Documented by: LUCIANARISFarhan Labs CBC & Chem 7: 09/07/21 05:36 09/07/21 05:36 Assessment and Plan (1) Dementia with behavioral disturbance: Status: Acute Plan 76 yo M who presented to the ED on 05/23/21 for AMS and failure to thrive. He was initially going to be placed at a facility, but on 05/29 was noted to have cough and a CXR revealed a new R base infiltrate concerning for aspiration pneumonia; has completed Abx course and now awaiting placement, received COVID vaccine developed symptomatic Covid-19 infection 08/17/21 without hypoxia Covid-19 infection resolved dementia with behavioral disturbances Use Seroquel as needed, redirection No behavioral issues noted in last several days patient has no capacity, continue current psych meds aspiration pneumonia no recurrent episode,completed treatment continue nectar thick and ground/mech [NDD2] diet suspected scabies treated with permethrin x 2 doses, no new rash noted stage 2 pressure ucler (L heel / M medial heel) and stage I bilateral buttock- present on admission continue wound care foam dressing to heel, continue barrier cream, + air loss bed + high-protein diet (on supplements) dispo awaiting LTC placement Quality Stroke Does the patient have a stroke diagnosis?: No VTE Prior VTE?: No VTE Risk Level:: Medical - moderate - high VTE Device Contraindication: N/A - Device Ordered VTE Drug Contraindication: N/A - Med Ordered
[2021-11-11] MEDS: Ascorbic Acid 500 MG TABLET PO (09:55)
[2021-11-11 16:00] VITALS: BP 182/84; PULSE 58; RESP 17; TEMP 36.3; O2SAT 99
[2021-11-11] MEDS: OLANZapine 5 MG TABLET PO (20:05)
[2021-11-11 23:35] VITALS: BP 103/72; PULSE 80; RESP 18; TEMP 36.4; O2SAT 97
[2021-11-12 07:52] VITALS: BP 112/60; PULSE 68; RESP 18; TEMP 35.9
--- NOTE | 2021-11-12 09:06 | HO.PM.IMPN ---
Subjective Subjective Date of Service: 11/12/21 Interval History: no complaints Cardiovascular Cardiovascular: Reports no additional cardiovascular complaints Respiratory Respiratory: Reports no additional respiratory complaints Physical Exam Vital Signs: Vital Signs: Last Vital Signs Temp 96.6 F L 11/12/21 07:52 Pulse 68 11/12/21 07:52 Resp 18 11/12/21 07:52 BP 112/60 11/12/21 07:52 Pulse Ox 97 11/11/21 23:35 BMI result Body Mass Index 22.1 Constitutional :? interactive upon waking up, disoriented at baseline not in distress Neck : Normal inspection, Supple Respiratory :? Chest moving bilaterally, no respiratory distress Neurological : Alert & disoriented, No focal deficit Objective Data Active Medications Ascorbic Acid (Ascorbic Acid 500 Mg Tablet) 500 mg PO DAILY [facility] Last Admin: 11/12/21 08:36 Dose: Not Given Documented by: APURVA Non-Admin Reason: Patient Refused Guaifenesin/Dextromethorphan (Guaifenesin Dm 100/10/5 Ml 5 Ml Syrup) 10 ml PO Q6H PRN PRN Reason: cough Last Admin: 10/28/21 00:08 Dose: 10 ml Documented by: DEMI Hydroxyzine HCl (Hydroxyzine Hcl 25 Mg Tablet) 25 mg PO Q6H PRN PRN Reason: agitation Last Admin: 11/06/21 02:12 Dose: 25 mg Documented by: MELODY Olanzapine (Olanzapine 5 Mg Tablet) 5 mg PO BEDTIME [facility] Last Admin: 11/11/21 20:05 Dose: 5 mg Documented by: LUCIANARISFarhan Labs CBC & Chem 7: 09/07/21 05:36 09/07/21 05:36 Assessment and Plan (1) Dementia with behavioral disturbance: Status: Acute Plan 76 yo M who presented to the ED on 05/23/21 for AMS and failure to thrive. He was initially going to be placed at a facility, but on 05/29 was noted to have cough and a CXR revealed a new R base infiltrate concerning for aspiration pneumonia; has completed Abx course and now awaiting placement, received COVID vaccine developed symptomatic Covid-19 infection 08/17/21 without hypoxia Covid-19 infection resolved dementia with behavioral disturbances Use Seroquel as needed, redirection No behavioral issues noted in last several days patient has no capacity, continue current psych meds aspiration pneumonia no recurrent episode,completed treatment continue nectar thick and ground/mech [NDD2] diet suspected scabies treated with permethrin x 2 doses, no new rash noted stage 2 pressure ucler (L heel / M medial heel) and stage I bilateral buttock- present on admission continue wound care foam dressing to heel, continue barrier cream, + air loss bed + high-protein diet (on supplements) dispo awaiting LTC placement Quality Stroke Does the patient have a stroke diagnosis?: No VTE Prior VTE?: No VTE Risk Level:: Medical - moderate - high VTE Device Contraindication: N/A - Device Ordered VTE Drug Contraindication: N/A - Med Ordered
[2021-11-12 16:00] VITALS: BP 109/53; PULSE 60; RESP 17; TEMP 36.1; O2SAT 99
[2021-11-12] MEDS: OLANZapine 5 MG TABLET PO (20:03)
[2021-11-12 23:40] VITALS: BP 127/62; PULSE 70; RESP 16; TEMP 36.3; O2SAT 91
[2021-11-13 08:00] VITALS: BP 145/70; PULSE 59; RESP 16; TEMP 36.3; O2SAT 98
--- NOTE | 2021-11-13 09:11 | HO.PM.IMPN ---
Subjective Subjective Date of Service: 11/13/21 Interval History: no complaints Cardiovascular Cardiovascular: Reports no additional cardiovascular complaints Gastrointestinal Gastrointestinal: Reports no additional gastrointestinal complaints Physical Exam Vital Signs: Vital Signs: Last Vital Signs Temp 97.4 F 11/13/21 08:00 Pulse 59 11/13/21 08:00 Resp 16 11/13/21 08:00 BP 145/70 H 11/13/21 08:00 Pulse Ox 98 11/13/21 08:00 BMI result Body Mass Index 22.1 Constitutional :? interactive upon waking up, disoriented at baseline not in distress Neck : Normal inspection, Supple Respiratory :? Chest moving bilaterally, no respiratory distress Neurological : Alert & disoriented, No focal deficit Objective Data Active Medications Ascorbic Acid (Ascorbic Acid 500 Mg Tablet) 500 mg PO DAILY [facility] Last Admin: 11/12/21 08:36 Dose: Not Given Documented by: APURVA Non-Admin Reason: Patient Refused Guaifenesin/Dextromethorphan (Guaifenesin Dm 100/10/5 Ml 5 Ml Syrup) 10 ml PO Q6H PRN PRN Reason: cough Last Admin: 10/28/21 00:08 Dose: 10 ml Documented by: DEMI Hydroxyzine HCl (Hydroxyzine Hcl 25 Mg Tablet) 25 mg PO Q6H PRN PRN Reason: agitation Last Admin: 11/06/21 02:12 Dose: 25 mg Documented by: MELODY Olanzapine (Olanzapine 5 Mg Tablet) 5 mg PO BEDTIME [facility] Last Admin: 11/12/21 20:03 Dose: 5 mg Documented by: ELODIA Labs CBC & Chem 7: 09/07/21 05:36 09/07/21 05:36 Assessment and Plan (1) Dementia with behavioral disturbance: Status: Acute Plan 76 yo M who presented to the ED on 05/23/21 for AMS and failure to thrive. He was initially going to be placed at a facility, but on 05/29 was noted to have cough and a CXR revealed a new R base infiltrate concerning for aspiration pneumonia; has completed Abx course and now awaiting placement, received COVID vaccine developed symptomatic Covid-19 infection 08/17/21 without hypoxia Covid-19 infection resolved dementia with behavioral disturbances Use Seroquel as needed, redirection No behavioral issues noted in last several days patient has no capacity, continue current psych meds aspiration pneumonia no recurrent episode,completed treatment continue nectar thick and ground/mech [NDD2] diet suspected scabies treated with permethrin x 2 doses, no new rash noted stage 2 pressure ucler (L heel / M medial heel) and stage I bilateral buttock- present on admission continue wound care foam dressing to heel, continue barrier cream, + air loss bed + high-protein diet (on supplements) dispo awaiting LTC placement Quality Stroke Does the patient have a stroke diagnosis?: No VTE Prior VTE?: No VTE Risk Level:: Medical - moderate - high VTE Device Contraindication: N/A - Device Ordered VTE Drug Contraindication: N/A - Med Ordered
[2021-11-13] MEDS: Ascorbic Acid 500 MG TABLET PO (10:16)
[2021-11-13 15:04] VITALS: BP 141/66; PULSE 69; RESP 14; TEMP 36.5; O2SAT 97
[2021-11-13] MEDS: hydrOXYzine HCL 25 MG TABLET PO (16:18)
[2021-11-13] MEDS: OLANZapine 5 MG TABLET PO (19:35)
[2021-11-13 23:13] VITALS: BP 119/61; PULSE 70; RESP 16; TEMP 36.3; O2SAT 94
[2021-11-14 07:27] VITALS: BP 159/75; PULSE 54; RESP 18; TEMP 36.4; O2SAT 96
[2021-11-14] MEDS: Ascorbic Acid 500 MG TABLET PO (10:24)
--- NOTE | 2021-11-14 13:35 | HO.PM.IMPN ---
Subjective Subjective Date of Service: 11/14/21 Interval History: Sitting in his bed, looks comfortable not in distress No reported other overnight events. Systemic review: No fever, chills or weakness No chest pain, palpitation No shortness of breath or coughing No abdominal pain, nausea or vomiting Physical Exam Vital Signs: Vital Signs: Last Vital Signs Temp 97.6 F 11/14/21 07:27 Pulse 54 11/14/21 07:27 Resp 18 11/14/21 07:27 BP 159/75 H 11/14/21 07:27 Pulse Ox 96 11/14/21 07:27 BMI result Body Mass Index 22.1 Const: Other: Constitutional : interactive upon waking up, disoriented at baseline not in distress Neck : Normal inspection, Supple Respiratory : Chest moving bilaterally, no respiratory distress Neurological : Alert & disoriented, No focal deficit Objective Data Active Medications Ascorbic Acid (Ascorbic Acid 500 Mg Tablet) 500 mg PO DAILY [facility] Last Admin: 11/14/21 10:24 Dose: 500 mg Documented by: AURORA Guaifenesin/Dextromethorphan (Guaifenesin Dm 100/10/5 Ml 5 Ml Syrup) 10 ml PO Q6H PRN PRN Reason: cough Last Admin: 10/28/21 00:08 Dose: 10 ml Documented by: DEMI Hydroxyzine HCl (Hydroxyzine Hcl 25 Mg Tablet) 25 mg PO Q6H PRN PRN Reason: agitation Last Admin: 11/13/21 16:18 Dose: 25 mg Documented by: DANITA Olanzapine (Olanzapine 5 Mg Tablet) 5 mg PO BEDTIME [facility] Last Admin: 11/13/21 19:35 Dose: 5 mg Documented by: ELODIA Labs CBC & Chem 7: 09/07/21 05:36 09/07/21 05:36 Assessment and Plan (1) Dementia with behavioral disturbance: Status: Acute Plan 76 yo M who presented to the ED on 05/23/21 for AMS and failure to thrive. He was initially going to be placed at a facility, but on 05/29 was noted to have cough and a CXR revealed a new R base infiltrate concerning for aspiration pneumonia; has completed Abx course and now awaiting placement, received COVID vaccine developed symptomatic Covid-19 infection 08/17/21 without hypoxia Covid-19 infection resolved dementia with behavioral disturbances Use Seroquel as needed, redirection No behavioral issues noted in last several days patient has no capacity, continue current psych meds aspiration pneumonia no recurrent episode,completed treatment continue nectar thick and ground/mech [NDD2] diet suspected scabies treated with permethrin x 2 doses, no new rash noted stage 2 pressure ucler (L heel / M medial heel) and stage I bilateral buttock- present on admission continue wound care foam dressing to heel, continue barrier cream, + air loss bed + high-protein diet (on supplements) dispo awaiting LTC placement Quality Stroke Does the patient have a stroke diagnosis?: No VTE Prior VTE?: No VTE Risk Level:: Medical - moderate - high VTE Device Contraindication: N/A - Device Ordered VTE Drug Contraindication: N/A - Med Ordered
[2021-11-14 15:02] VITALS: BP 160/74; PULSE 67; RESP 16; TEMP 36.7; O2SAT 96
[2021-11-14] MEDS: Albuterol/Iprat 2.5/0.5MG 3 ML AMPUL.NEB INHALE (17:48)
[2021-11-14 17:51] VITALS: PULSE 67; RESP 18; O2SAT 96
[2021-11-14] MEDS: OLANZapine 5 MG TABLET PO (19:56)
[2021-11-14 23:15] VITALS: BP 128/66; PULSE 72; RESP 18; TEMP 36.2; O2SAT 93
[2021-11-15 07:08] VITALS: BP 143/76; PULSE 80; RESP 16; TEMP 36.4; O2SAT 93
[2021-11-15] MEDS: Ascorbic Acid 500 MG TABLET PO (09:00)
--- NOTE | 2021-11-15 13:12 | HO.PM.IMPN ---
Subjective Subjective Date of Service: 11/15/21 Interval History: Sitting in his bed, looks comfortable not in distress No reported other overnight events. Systemic review: No fever, chills or weakness No chest pain, palpitation No shortness of breath or coughing No abdominal pain, nausea or vomiting Physical Exam Vital Signs: Vital Signs: Last Vital Signs Temp 97.6 F 11/15/21 07:08 Pulse 80 11/15/21 07:08 Resp 16 11/15/21 07:08 BP 143/76 H 11/15/21 07:08 Pulse Ox 93 11/15/21 07:08 BMI result Body Mass Index 22.1 Const: Other: Constitutional : interactive upon waking up, disoriented at baseline not in distress Neck : Normal inspection, Supple Respiratory : Chest moving bilaterally, no respiratory distress Neurological : Alert & disoriented, No focal deficit Objective Data Active Medications Albuterol/Ipratropium (Albuterol/Iprat 2.5/0.5mg 3 Ml Ampul.Neb) 3 ml INHALE RQ4H PRN PRN Reason: Shortness of Breath/Wheezing Last Admin: 11/14/21 17:48 Dose: 3 ml Documented by: JESÚS Ascorbic Acid (Ascorbic Acid 500 Mg Tablet) 500 mg PO DAILY [facility] Last Admin: 11/15/21 09:00 Dose: 500 mg Documented by: SARA Guaifenesin/Dextromethorphan (Guaifenesin Dm 100/10/5 Ml 5 Ml Syrup) 10 ml PO Q6H PRN PRN Reason: cough Last Admin: 10/28/21 00:08 Dose: 10 ml Documented by: DEMI Hydroxyzine HCl (Hydroxyzine Hcl 25 Mg Tablet) 25 mg PO Q6H PRN PRN Reason: agitation Last Admin: 11/13/21 16:18 Dose: 25 mg Documented by: DANITA Olanzapine (Olanzapine 5 Mg Tablet) 5 mg PO BEDTIME [facility] Last Admin: 11/14/21 19:56 Dose: 5 mg Documented by: MARÍA Labs CBC & Chem 7: 09/07/21 05:36 09/07/21 05:36 Assessment and Plan (1) Dementia with behavioral disturbance: Status: Acute Plan 76 yo M who presented to the ED on 05/23/21 for AMS and failure to thrive. He was initially going to be placed at a facility, but on 05/29 was noted to have cough and a CXR revealed a new R base infiltrate concerning for aspiration pneumonia; has completed Abx course and now awaiting placement, received COVID vaccine developed symptomatic Covid-19 infection 08/17/21 without hypoxia no active medical illness at this point. Chronic problems, resolved problems Covid-19 infection resolved dementia with behavioral disturbances Use Seroquel as needed, redirection No behavioral issues noted in last several days patient has no capacity, continue current psych meds aspiration pneumonia no recurrent episode,completed treatment continue nectar thick and ground/mech [NDD2] diet suspected scabies treated with permethrin x 2 doses, no new rash noted stage 2 pressure ucler (L heel / M medial heel) and stage I bilateral buttock- present on admission continue wound care foam dressing to heel, continue barrier cream, + air loss bed + high-protein diet (on supplements) dispo awaiting LTC placement Quality Stroke Does the patient have a stroke diagnosis?: No VTE Prior VTE?: No VTE Risk Level:: Medical - moderate - high VTE Device Contraindication: N/A - Device Ordered VTE Drug Contraindication: N/A - Med Ordered
[2021-11-15 15:59] VITALS: BP 136/62; PULSE 66; RESP 18; TEMP 36.8; O2SAT 93
[2021-11-15 19:58] VITALS: BP 136/63; PULSE 67; RESP 16; TEMP 36.6; O2SAT 96
[2021-11-15] MEDS: OLANZapine 5 MG TABLET PO (20:04)
[2021-11-16 07:45] VITALS: BP 112/62; PULSE 68; RESP 20; TEMP 36.4; O2SAT 100
[2021-11-16] MEDS: Ascorbic Acid 500 MG TABLET PO (11:12)
--- NOTE | 2021-11-16 11:20 | HO.PM.IMPN ---
Subjective Subjective Date of Service: 11/16/21 Interval History: Laying in his bed, looks comfortable not in distress No reported other overnight events. Systemic review: No fever, chills or weakness No chest pain, palpitation No shortness of breath or coughing No abdominal pain, nausea or vomiting Physical Exam Vital Signs: Vital Signs: Last Vital Signs Temp 97.6 F 11/16/21 07:45 Pulse 68 11/16/21 07:45 Resp 20 11/16/21 07:45 BP 112/62 11/16/21 07:45 Pulse Ox 100 11/16/21 07:45 BMI result Body Mass Index 22.1 Const: Other: Constitutional : interactive upon waking up, disoriented at baseline not in distress Neck : Normal inspection, Supple Respiratory : Chest moving bilaterally, no respiratory distress Neurological : Alert & disoriented, No focal deficit Objective Data Active Medications Albuterol/Ipratropium (Albuterol/Iprat 2.5/0.5mg 3 Ml Ampul.Neb) 3 ml INHALE RQ4H PRN PRN Reason: Shortness of Breath/Wheezing Last Admin: 11/14/21 17:48 Dose: 3 ml Documented by: JESÚS Ascorbic Acid (Ascorbic Acid 500 Mg Tablet) 500 mg PO DAILY [facility] Last Admin: 11/16/21 11:12 Dose: 500 mg Documented by: SARA Hydroxyzine HCl (Hydroxyzine Hcl 25 Mg Tablet) 25 mg PO Q6H PRN PRN Reason: agitation Last Admin: 11/13/21 16:18 Dose: 25 mg Documented by: DANITA Olanzapine (Olanzapine 5 Mg Tablet) 5 mg PO BEDTIME [facility] Last Admin: 11/15/21 20:04 Dose: 5 mg Documented by: DEMI Labs CBC & Chem 7: 09/07/21 05:36 09/07/21 05:36 Assessment and Plan (1) Dementia with behavioral disturbance: Status: Acute Plan 76 yo M who presented to the ED on 05/23/21 for AMS and failure to thrive. He was initially going to be placed at a facility, but on 05/29 was noted to have cough and a CXR revealed a new R base infiltrate concerning for aspiration pneumonia; has completed Abx course and now awaiting placement, received COVID vaccine developed symptomatic Covid-19 infection 08/17/21 without hypoxia no active medical illness at this point. Chronic problems, resolved problems Covid-19 infection resolved dementia with behavioral disturbances Use Seroquel as needed, redirection No behavioral issues noted in last several days patient has no capacity, continue current psych meds aspiration pneumonia no recurrent episode,completed treatment continue nectar thick and ground/mech [NDD2] diet suspected scabies treated with permethrin x 2 doses, no new rash noted stage 2 pressure ucler (L heel / M medial heel) and stage I bilateral buttock- present on admission continue wound care foam dressing to heel, continue barrier cream, + air loss bed + high-protein diet (on supplements) dispo awaiting LTC placement Quality Stroke Does the patient have a stroke diagnosis?: No VTE Prior VTE?: No VTE Risk Level:: Medical - moderate - high VTE Device Contraindication: N/A - Device Ordered VTE Drug Contraindication: N/A - Med Ordered
[2021-11-16 15:08] VITALS: BP 131/70; PULSE 67; RESP 18; TEMP 36.8; O2SAT 97
[2021-11-16] MEDS: OLANZapine 5 MG TABLET PO (20:11)
[2021-11-16] MEDS: hydrOXYzine HCL 25 MG TABLET PO (20:12)
[2021-11-16 23:38] VITALS: BP 166/77; PULSE 73; RESP 16; TEMP 36.7; O2SAT 94
[2021-11-17 07:45] VITALS: BP 125/61; PULSE 63; RESP 18; TEMP 37.4; O2SAT 96
--- NOTE | 2021-11-17 13:15 | HO.PM.IMPN ---
Subjective Subjective Date of Service: 11/17/21 Interval History: sitting in his bed, comfortable not in distress No reported other overnight events. Systemic review: No fever, chills or weakness No chest pain, palpitation No shortness of breath or coughing No abdominal pain, nausea or vomiting Physical Exam Vital Signs: Vital Signs: Last Vital Signs Temp 99.3 F 11/17/21 07:45 Pulse 63 11/17/21 07:45 Resp 18 11/17/21 07:45 BP 125/61 11/17/21 07:45 Pulse Ox 96 11/17/21 07:45 BMI result Body Mass Index 22.1 Const: Other: Constitutional : interactive upon waking up, disoriented at baseline not in distress Neck : Normal inspection, Supple Respiratory : Chest moving bilaterally, no respiratory distress Neurological : Alert & disoriented, No focal deficit Objective Data Active Medications Albuterol/Ipratropium (Albuterol/Iprat 2.5/0.5mg 3 Ml Ampul.Neb) 3 ml INHALE RQ4H PRN PRN Reason: Shortness of Breath/Wheezing Last Admin: 11/14/21 17:48 Dose: 3 ml Documented by: JESÚS Ascorbic Acid (Ascorbic Acid 500 Mg Tablet) 500 mg PO DAILY [facility] Last Admin: 11/17/21 09:19 Dose: Not Given Documented by: JANIE Non-Admin Reason: Patient Asleep Hydroxyzine HCl (Hydroxyzine Hcl 25 Mg Tablet) 25 mg PO Q6H PRN PRN Reason: agitation Last Admin: 11/16/21 20:12 Dose: 25 mg Documented by: SYLVIA Olanzapine (Olanzapine 5 Mg Tablet) 5 mg PO BEDTIME [facility] Last Admin: 11/16/21 20:11 Dose: 5 mg Documented by: SYLVIA Labs CBC & Chem 7: 09/07/21 05:36 09/07/21 05:36 Assessment and Plan (1) Dementia with behavioral disturbance: Status: Acute Plan 76 yo M who presented to the ED on 05/23/21 for AMS and failure to thrive. He was initially going to be placed at a facility, but on 05/29 was noted to have cough and a CXR revealed a new R base infiltrate concerning for aspiration pneumonia; has completed Abx course and now awaiting placement, received COVID vaccine developed symptomatic Covid-19 infection 08/17/21 without hypoxia no active medical illness at this point. Chronic problems, resolved problems Covid-19 infection resolved dementia with behavioral disturbances Use Seroquel as needed, redirection No behavioral issues noted in last several days patient has no capacity, continue current psych meds aspiration pneumonia no recurrent episode,completed treatment continue nectar thick and ground/mech [NDD2] diet suspected scabies treated with permethrin x 2 doses, no new rash noted stage 2 pressure ucler (L heel / M medial heel) and stage I bilateral buttock- present on admission continue wound care foam dressing to heel, continue barrier cream, + air loss bed + high-protein diet (on supplements) dispo awaiting LTC placement Quality Stroke Does the patient have a stroke diagnosis?: No VTE Prior VTE?: No VTE Risk Level:: Medical - moderate - high VTE Device Contraindication: N/A - Device Ordered VTE Drug Contraindication: N/A - Med Ordered
[2021-11-17 15:46] VITALS: BP 134/75; PULSE 67; RESP 18; TEMP 36.7; O2SAT 94
[2021-11-17] MEDS: OLANZapine 5 MG TABLET PO (21:28)
[2021-11-17] MEDS: hydrOXYzine HCL 25 MG TABLET PO (21:28)
[2021-11-17 23:34] VITALS: BP 149/65; PULSE 88; RESP 16; TEMP 36.4; O2SAT 96
[2021-11-18 08:00] VITALS: BP 131/61; PULSE 61; RESP 18; TEMP 36.3; O2SAT 94
[2021-11-18] MEDS: Ascorbic Acid 500 MG TABLET PO (10:08)
--- NOTE | 2021-11-18 12:08 | P.PNIM_ITS ---
Subjective Subjective Date of Service: 11/18/21 Interval History: sitting in his bed, comfortable not in distress No reported other overnight events. Systemic review: No fever, chills or weakness No chest pain, palpitation No shortness of breath or coughing No abdominal pain, nausea or vomiting Physical Exam Vital Signs: Vital Signs: Last Vital Signs Temp 97.4 F 11/18/21 08:00 Pulse 61 11/18/21 08:00 Resp 18 11/18/21 08:00 BP 131/61 11/18/21 08:00 Pulse Ox 94 11/18/21 08:00 BMI result Body Mass Index 22.1 Const: Other: Constitutional : interactive upon waking up, disoriented at baseline not in distress Neck : Normal inspection, Supple Respiratory : Chest moving bilaterally, no respiratory distress Neurological : Alert & disoriented, No focal deficit Objective Data Active Medications Albuterol/Ipratropium (Albuterol/Iprat 2.5/0.5mg 3 Ml Ampul.Neb) 3 ml INHALE RQ4H PRN PRN Reason: Shortness of Breath/Wheezing Last Admin: 11/14/21 17:48 Dose: 3 ml Documented by: JESÚS Ascorbic Acid (Ascorbic Acid 500 Mg Tablet) 500 mg PO DAILY [facility] Last Admin: 11/18/21 10:08 Dose: 500 mg Documented by: JANIE Hydroxyzine HCl (Hydroxyzine Hcl 25 Mg Tablet) 25 mg PO Q6H PRN PRN Reason: agitation Last Admin: 11/17/21 21:28 Dose: 25 mg Documented by: SYLVIA Olanzapine (Olanzapine 5 Mg Tablet) 5 mg PO BEDTIME [facility] Last Admin: 11/17/21 21:28 Dose: 5 mg Documented by: SYLVIA Labs CBC & Chem 7: 09/07/21 05:36 09/07/21 05:36 Assessment and Plan (1) Dementia with behavioral disturbance: Status: Acute Plan 76 yo M who presented to the ED on 05/23/21 for AMS and failure to thrive. He was initially going to be placed at a facility, but on 05/29 was noted to have cough and a CXR revealed a new R base infiltrate concerning for aspiration pneumonia; has completed Abx course and now awaiting placement, received COVID v accine developed symptomatic Covid-19 infection 08/17/21 without hypoxia no active medical illness at this point. Chronic problems, resolved problems Covid-19 infection resolved dementia with behavioral disturbances Use Seroquel as needed, redirection No behavioral issues noted in last several days patient has no capacity, continue current psych meds aspiration pneumonia no recurrent episode,completed treatment continue nectar thick and ground/mech [NDD2] diet suspected scabies treated with permethrin x 2 doses, no new rash noted stage 2 pressure ucler (L heel / M medial heel) and stage I bilateral buttock- present on admission continue wound care foam dressing to heel, continue barrier cream, + air loss bed + high-protein diet (on supplements) dispo awaiting LTC placement Quality Stroke Does the patient have a stroke diagnosis?: No VTE Prior VTE?: No VTE Risk Level:: Medical - moderate - high VTE Device Contraindication: N/A - Device Ordered VTE Drug Contraindication: N/A - Med Ordered
[2021-11-18 16:00] VITALS: BP 158/90; PULSE 63; RESP 18; TEMP 36.9; O2SAT 97
[2021-11-18] MEDS: OLANZapine 5 MG TABLET PO (20:07)
[2021-11-19] VITALS: BP 147/77; PULSE 68; RESP 18; TEMP 36.9; O2SAT 95
[2021-11-19 07:46] VITALS: BP 122/64; PULSE 72; RESP 18; TEMP 36.1; O2SAT 96
[2021-11-19] MEDS: hydrOXYzine HCL 25 MG TABLET PO ×2 (09:06→20:58)
[2021-11-19] MEDS: Ascorbic Acid 500 MG TABLET PO (09:06)
--- NOTE | 2021-11-19 10:19 | PC.NURSE ---
Pt increasingly agitated and combative this morning. PRN Atarax given at 0906 this morning with little effect. Dr Perez notified. Will continue to monitor.
--- NOTE | 2021-11-19 11:53 | MHC.CM.PN ---
Case Management continues search for LTC bed. Referrals out.
--- NOTE | 2021-11-19 13:49 | HO.PM.IMPN ---
Subjective Subjective Date of Service: 11/19/21 Interval History: sitting in his bed, restless more agitated and aggressive toward the nurses today No reported other overnight events. Systemic review: No fever, chills or weakness No chest pain, palpitation No shortness of breath or coughing No abdominal pain, nausea or vomiting Physical Exam Vital Signs: Vital Signs: Last Vital Signs Temp 97 F 11/19/21 07:46 Pulse 72 11/19/21 07:46 Resp 18 11/19/21 07:46 BP 122/64 11/19/21 07:46 Pulse Ox 96 11/19/21 07:46 BMI result Body Mass Index 22.1 Const: Other: Constitutional : interactive, disoriented at baseline , restless and agitated not following commands Neck : Normal inspection, Supple Respiratory : Chest moving bilaterally, no respiratory distress Neurological : Alert & disoriented, No focal deficit Objective Data Active Medications Albuterol/Ipratropium (Albuterol/Iprat 2.5/0.5mg 3 Ml Ampul.Neb) 3 ml INHALE RQ4H PRN PRN Reason: Shortness of Breath/Wheezing Last Admin: 11/14/21 17:48 Dose: 3 ml Documented by: JESÚS Ascorbic Acid (Ascorbic Acid 500 Mg Tablet) 500 mg PO DAILY [facility] Last Admin: 11/19/21 09:06 Dose: 500 mg Documented by: ROBERT Hydroxyzine HCl (Hydroxyzine Hcl 25 Mg Tablet) 25 mg PO Q6H PRN PRN Reason: agitation Last Admin: 11/19/21 09:06 Dose: 25 mg Documented by: ROBERT Olanzapine (Olanzapine 5 Mg Tablet) 5 mg PO BEDTIME [facility] Last Admin: 11/18/21 20:07 Dose: 5 mg Documented by: DEMI Labs CBC & Chem 7: 09/07/21 05:36 09/07/21 05:36 Assessment and Plan (1) Dementia with behavioral disturbance: Status: Acute Plan 76 yo M who presented to the ED on 05/23/21 for AMS and failure to thrive. He was initially going to be placed at a facility, but on 05/29 was noted to have cough and a CXR revealed a new R base infiltrate concerning for aspiration pneumonia; has completed Abx course and now awaiting placement, received COVID vaccine developed symptomatic Covid-19 infection 08/17/21 without hypoxia restless, agitated Add small dose of Seroquel p.r.n. Recurrent redirection Chronic problems, resolved problems Covid-19 infection resolved dementia with behavioral disturbances Use Seroquel as needed, redirection No behavioral issues noted in last several days patient has no capacity, continue current psych meds aspiration pneumonia no recurrent episode,completed treatment continue nectar thick and ground/mech [NDD2] diet suspected scabies treated with permethrin x 2 doses, no new rash noted stage 2 pressure ucler (L heel / M medial heel) and stage I bilateral buttock- present on admission continue wound care foam dressing to heel, continue barrier cream, + air loss bed + high-protein diet (on supplements) dispo awaiting LTC placement Quality Stroke Does the patient have a stroke diagnosis?: No VTE Prior VTE?: No VTE Risk Level:: Medical - moderate - high VTE Device Contraindication: N/A - Device Ordered VTE Drug Contraindication: N/A - Med Ordered
[2021-11-19] MEDS: OLANZapine 5 MG TABLET PO (20:53)
[2021-11-20 08:00] VITALS: BP 116/52; PULSE 60; RESP 16; TEMP 36.6; O2SAT 99
--- NOTE | 2021-11-20 09:56 | MHC.CM.PN ---
All reviewing facilities provided updates and copy of [email or web address] [facility]. Additional facilities added. No bed offers to-date.
--- NOTE | 2021-11-20 10:18 | HO.PM.IMPN ---
Subjective Subjective Date of Service: 11/20/21 Interval History: Seen this morning sitting in his bed, less agitated today No reported other overnight events. Systemic review: No fever, chills or weakness No chest pain, palpitation No shortness of breath or coughing No abdominal pain, nausea or vomiting Physical Exam Vital Signs: Vital Signs: Last Vital Signs Temp 97.9 F 11/20/21 08:00 Pulse 60 11/20/21 08:00 Resp 16 11/20/21 08:00 BP 116/52 L 11/20/21 08:00 Pulse Ox 99 11/20/21 08:00 BMI result Body Mass Index 22.1 Const: Other: Constitutional : interactive, disoriented at baseline , less agitated, following commands Neck : Normal inspection, Supple Respiratory : Chest moving bilaterally, no respiratory distress Neurological : Alert & disoriented, No focal deficit Objective Data Active Medications Albuterol/Ipratropium (Albuterol/Iprat 2.5/0.5mg 3 Ml Ampul.Neb) 3 ml INHALE RQ4H PRN PRN Reason: Shortness of Breath/Wheezing Last Admin: 11/14/21 17:48 Dose: 3 ml Documented by: JESÚS Ascorbic Acid (Ascorbic Acid 500 Mg Tablet) 500 mg PO DAILY [facility] Last Admin: 11/19/21 09:06 Dose: 500 mg Documented by: ROBERT Hydroxyzine HCl (Hydroxyzine Hcl 25 Mg Tablet) 25 mg PO Q6H PRN PRN Reason: agitation Last Admin: 11/19/21 20:58 Dose: 25 mg Documented by: DEMI Olanzapine (Olanzapine 5 Mg Tablet) 5 mg PO BEDTIME [facility] Last Admin: 11/19/21 20:53 Dose: 5 mg Documented by: DEMI Olanzapine (Olanzapine 2.5 Mg Tablet) 2.5 mg PO ONCE PRN PRN Reason: anxiety/restlessness Labs CBC & Chem 7: 09/07/21 05:36 09/07/21 05:36 Assessment and Plan (1) Dementia: Status: Acute Plan 76 yo M who presented to the ED on 05/23/21 for AMS and failure to thrive. He was initially going to be placed at a facility, but on 05/29 was noted to have cough and a CXR revealed a new R base infiltrate concerning for aspiration pneumonia; has completed Abx course and now awaiting placement, received COVID vaccine developed symptomatic Covid-19 infection 08/17/21 without hypoxia restless, agitated Improved small dose of Zyprexa p.r.n. Recurrent redirection Chronic problems, resolved problems Covid-19 infection resolved dementia with behavioral disturbances Use Seroquel as needed, redirection No behavioral issues noted in last several days patient has no capacity, continue current psych meds aspiration pneumonia no recurrent episode,completed treatment continue nectar thick and ground/mech [NDD2] diet suspected scabies treated with permethrin x 2 doses, no new rash noted stage 2 pressure ucler (L heel / M medial heel) and stage I bilateral buttock- present on admission continue wound care foam dressing to heel, continue barrier cream, + air loss bed + high-protein diet (on supplements) dispo awaiting LTC placement Quality Stroke Does the patient have a stroke diagnosis?: No VTE Prior VTE?: No VTE Risk Level:: Medical - moderate - high VTE Device Contraindication: N/A - Device Ordered VTE Drug Contraindication: N/A - Med Ordered
--- NOTE | 2021-11-20 11:44 | MHC.CM.PN ---
OLY GOINS WILL BE IN AT APPROX 2PM TO BEDSIDE W/PT, LIAISON REPORTS THEY DO NOT HAVE BED HOWEER WILL SEE FOR SISTER FACILITY. [facility] UNABLE TO ACCOMODATE HOWEVER [facility] IS LOOKING INTO [facility] IS REVIEWING PT, [facility] REQUESTING 30 DAYS OF PRIVATE PAY UPFRONT TO TAKE PT, AND ALL LOCAL [facility] FAC[facility] ARE REPORTING NO BEDS AVAILABLE. CM HAS LEFT MESSAGE FOR LIAISON/DON AT [facility] AT 10:25AM [phone], NO ANSWER, MESSAGE LEFT W/CM CONTACT INFO.
--- NOTE | 2021-11-20 11:57 | MHC.CM.PN ---
[facility] HAS NO LTC BEDS AND [facility] HAS DECLINED PT D/T BEHAVIORS.
--- NOTE | 2021-11-20 12:14 | MHC.CM.PN ---
CM RECEIVED AN EMAIL FROM [facility] L[facility]KURT DIOP WITH SPECIFIC QUESTIONS REGARDING PT'S FINANCIALS, EMAIL FORWARDED TO PT'S GUARDIAN/CONSERVATOR SACHIN VILLAGRAN AT [email or web address] AT 12:15PM. CM WILL FOLLOW UP W/ABIGAIL LATER TODAY.
[2021-11-20 15:48] VITALS: BP 102/53; PULSE 75; RESP 17; TEMP 36.6; O2SAT 93
--- NOTE | 2021-11-20 16:01 | MHC.CM.PN ---
OLY BULLOCK Suzanne CAME TO UNIT FOR BEDSIDE VISIT W/PT, PT SLEEPING THROUGHOUT VISIT AND LIAISON MET W/PT'S SPOUSE IN ROOM, KOBE REPORTS SHE WILL PUSH FOR ADMISSIONS AT THE FOLLOWING FACILITIES IN ORDER, [facility], [facility] AND [facility]. PT WOULD HAVE A SEPARATE ROOM AT [facility] AND HAS OPTION TO SHARE A ROOM W/SPOUSE AT [facility] AND [facility]. PT'S GUARDIAN/CONSERVATOR NOTIFIED BY EMAIL PT WILL BE PLACED IN [facility]. CM WILL START MDS TOMORROW 11/21/21.
[2021-11-20] MEDS: OLANZapine 5 MG TABLET PO (21:20)
[2021-11-21] VITALS: BP 119/64; PULSE 69; RESP 16; TEMP 36.7; O2SAT 95
[2021-11-21 08:00] VITALS: BP 134/63; PULSE 69; RESP 17; TEMP 36.2; O2SAT 95
[2021-11-21] MEDS: Ascorbic Acid 500 MG TABLET PO (08:23)
--- NOTE | 2021-11-21 10:09 | HO.PM.IMPN ---
Subjective Subjective Date of Service: 11/21/21 Interval History: no complaints Cardiovascular Cardiovascular: Reports no additional cardiovascular complaints Respiratory Respiratory: Reports no additional respiratory complaints Physical Exam Vital Signs: Vital Signs: Last Vital Signs Temp 97.1 F 11/21/21 08:00 Pulse 69 11/21/21 08:00 Resp 17 11/21/21 08:00 BP 134/63 11/21/21 08:00 Pulse Ox 95 11/21/21 08:00 BMI result Body Mass Index 22.1 Constitutional :? interactive, disoriented at baseline , less agitated, following commands Neck : Normal inspection, Supple Respiratory :? Chest moving bilaterally, no respiratory distress Neurological : Alert & disoriented, No focal deficit Objective Data Active Medications Albuterol/Ipratropium (Albuterol/Iprat 2.5/0.5mg 3 Ml Ampul.Neb) 3 ml INHALE RQ4H PRN PRN Reason: Shortness of Breath/Wheezing Last Admin: 11/14/21 17:48 Dose: 3 ml Documented by: JESÚS Ascorbic Acid (Ascorbic Acid 500 Mg Tablet) 500 mg PO DAILY [facility] Last Admin: 11/21/21 08:23 Dose: 500 mg Documented by: KARINA Hydroxyzine HCl (Hydroxyzine Hcl 25 Mg Tablet) 25 mg PO Q6H PRN PRN Reason: agitation Last Admin: 11/19/21 20:58 Dose: 25 mg Documented by: DEMI Olanzapine (Olanzapine 5 Mg Tablet) 5 mg PO BEDTIME [facility] Last Admin: 11/20/21 21:20 Dose: 5 mg Documented by: BENITA Olanzapine (Olanzapine 2.5 Mg Tablet) 2.5 mg PO ONCE PRN PRN Reason: anxiety/restlessness Labs CBC & Chem 7: 09/07/21 05:36 09/07/21 05:36 Assessment and Plan (1) Dementia: Status: Acute Plan 76 yo M who presented to the ED on 05/23/21 for AMS and failure to thrive. He was initially going to be placed at a facility, but on 05/29 was noted to have cough and a CXR revealed a new R base infiltrate concerning for aspiration pneumonia; has completed Abx course and now awaiting placement, received COVID vaccine developed symptomatic Covid-19 infection 08/17/21 without hypoxia restless, agitated Improved small dose of Zyprexa p.r.n. Recurrent redirection Chronic problems, resolved problems Covid-19 infection resolved dementia with behavioral disturbances Use Seroquel as needed, redirection No behavioral issues noted in last several days patient has no capacity, continue current psych meds aspiration pneumonia no recurrent episode,completed treatment continue nectar thick and ground/mech [NDD2] diet suspected scabies treated with permethrin x 2 doses, no new rash noted stage 2 pressure ucler (L heel / M medial heel) and stage I bilateral buttock- present on admission continue wound care foam dressing to heel, continue barrier cream, + air loss bed + high-protein diet (on supplements) dispo awaiting LTC placement Quality Stroke Does the patient have a stroke diagnosis?: No VTE Prior VTE?: No VTE Risk Level:: Medical - moderate - high VTE Device Contraindication: N/A - Device Ordered VTE Drug Contraindication: N/A - Med Ordered
[2021-11-21] MEDS: Nystatin Powder 15 GM BOTTLE 1 APPL TOPICAL ×2 (15:21→21:14)
[2021-11-21 15:24] VITALS: BP 147/67; PULSE 58; RESP 16; TEMP 37.2; O2SAT 95
[2021-11-21] MEDS: OLANZapine 5 MG TABLET PO (21:11)
[2021-11-21 23:39] VITALS: BP 149/59; PULSE 60; RESP 16; TEMP 36.2; O2SAT 96
[2021-11-22 08:00] VITALS: BP 101/51; PULSE 54; RESP 16; TEMP 36.3; O2SAT 95
[2021-11-22] MEDS: Nystatin Powder 15 GM BOTTLE 1 APPL TOPICAL ×3 (08:07→21:27)
[2021-11-22] MEDS: Ascorbic Acid 500 MG TABLET PO (08:07)
--- NOTE | 2021-11-22 11:25 | P.PNIM_ITS ---
Subjective Subjective Date of Service: 11/22/21 Interval History: no compliants Cardiovascular Cardiovascular: Reports no additional cardiovascular complaints Respiratory Respiratory: Reports no additional respiratory complaints Physical Exam Vital Signs: Vital Signs: Last Vital Signs Temp 97.4 F 11/22/21 08:00 Pulse 54 11/22/21 08:00 Resp 16 11/22/21 08:00 BP 101/51 L 11/22/21 08:00 Pulse Ox 95 11/22/21 08:00 BMI result Body Mass Index 22.1 Constitutional :? interactive, disoriented at baseline , less agitated, following commands Neck : Normal inspection, Supple Respiratory :? Chest moving bilaterally, no respiratory distress Neurological : Alert & disoriented, No focal deficit Objective Data Active Medications Ascorbic Acid (Ascorbic Acid 500 Mg Tablet) 500 mg PO DAILY [facility] Last Admin: 11/22/21 08:07 Dose: 500 mg Documented by: KARINA Hydroxyzine HCl (Hydroxyzine Hcl 25 Mg Tablet) 25 mg PO Q6H PRN PRN Reason: agitation Last Admin: 11/19/21 20:58 Dose: 25 mg Documented by: DEMI Nystatin (Nystatin Powder 15 Gm Bottle) 1 appl TOPICAL TID [facility]; Protocol Last Admin: 11/22/21 08:07 Dose: 1 appl Documented by: KARINA Olanzapine (Olanzapine 5 Mg Tablet) 5 mg PO BEDTIME [facility] Last Admin: 11/21/21 21:11 Dose: 5 mg Documented by: GIL Olanzapine (Olanzapine 2.5 Mg Tablet) 2.5 mg PO ONCE PRN PRN Reason: anxiety/restlessness Labs CBC & Chem 7: 09/07/21 05:36 09/07/21 05:36 Assessment and Plan (1) Dementia: Status: Acute Plan 76 yo M who presented to the ED on 05/23/21 for AMS and failure to thrive. He was initially going to be placed at a facility, but on 05/29 was noted to have cough and a CXR revealed a new R base infiltrate concerning for aspiration pne umonia; has completed Abx course and now awaiting placement, received COVID vaccine developed symptomatic Covid-19 infection 08/17/21 without hypoxia restless, agitated Improved small dose of Zyprexa p.r.n. Recurrent redirection Chronic problems, resolved problems Covid-19 infection resolved dementia with behavioral disturbances Use Seroquel as needed, redirection No behavioral issues noted in last several days patient has no capacity, continue current psych meds aspiration pneumonia no recurrent episode,completed treatment continue nectar thick and ground/mech [NDD2] diet suspected scabies treated with permethrin x 2 doses, no new rash noted stage 2 pressure ucler (L heel / M medial heel) and stage I bilateral buttock- present on admission continue wound care foam dressing to heel, continue barrier cream, + air loss bed + high-protein diet (on supplements) dispo awaiting LTC placement Quality Stroke Does the patient have a stroke diagnosis?: No VTE Prior VTE?: No VTE Risk Level:: Medical - moderate - high VTE Device Contraindication: N/A - Device Ordered VTE Drug Contraindication: N/A - Med Ordered
--- NOTE | 2021-11-22 14:09 | MHC.CM.PN ---
Addendum entered by Cele Vallejo RN 11/22/21 16:38: PER OLY QUIÑONES L[facility] IN [place] HAS BEEN ADDED TO REFERRAL THEY WILL BE REVIEWING AND ASKING QUESTIONS VIA [employer] Original Note: CM RECEIVED MESSAGE FROM [facility]KURT DIOP WHO REPORTED SHE IS WORKINGON PLACEMENT FOR PT AND SPOSE W/TEAM AND GUARDIAN/CONSERVATOR GIAN VILLAGRAN. CM HAS NOT RECEIVED ANY FURTHER COMMUNICATION FROM OLY QUIÑONES AFTER DISCUSSION W/CM DIRECTOR REGARDING REASON FOR TEMP GUARDIANSHIP REMAINING IN PLACE.
[2021-11-22 16:00] VITALS: TEMP 36.4
[2021-11-22] MEDS: OLANZapine 5 MG TABLET PO (21:26)
[2021-11-22 23:47] VITALS: BP 169/78; PULSE 54; RESP 16; TEMP 36.3; O2SAT 98
[2021-11-23 07:58] VITALS: BP 138/86; PULSE 53; RESP 18; TEMP 36; O2SAT 93
--- NOTE | 2021-11-23 12:54 | P.PNIM_ITS ---
Subjective Subjective Date of Service: 11/23/21 Interval History: No complaints Review of Systems Review of Systems: Yes Unobtainable due to mental status Physical Exam Vital Signs: Vital Signs: Last Vital Signs Temp 96.8 F 11/23/21 07:58 Pulse 53 11/23/21 07:58 Resp 18 11/23/21 07:58 BP 138/86 11/23/21 07:58 Pulse Ox 93 11/23/21 07:58 BMI result Body Mass Index 22.1 Const: Other: Constitutional :?d isoriented at base line , less agitat ed, following comm ands Neck : Normal inspection, Suppl e Respiratory :? C hest moving bilate rally, no respirat ory distress Abdom en soft nontender, bowel sounds sunita ble Neurological : Alert & disorient ed, No focal defic it Objective Data Active Medications Ascorbic Acid (Ascorbic Acid 500 Mg Tablet) 500 mg PO DAILY [facility] Last Admin: 11/23/21 09:36 Dose: Not Given Documented by: JANIE Non-Admin Reason: Patient Asleep Hydroxyzine HCl (Hydroxyzine Hcl 25 Mg Tablet) 25 mg PO Q6H PRN PRN Reason: agitation Last Admin: 11/19/21 20:58 Dose: 25 mg Documented by: DEMI Nystatin (Nystatin Powder 15 Gm Bottle) 1 appl TOPICAL TID [facility]; Protocol Last Admin: 11/23/21 10:23 Dose: Not Given Documented by: JANIE Non-Admin Reason: Patient Asleep Olanzapine (Olanzapine 5 Mg Tablet) 5 mg PO BEDTIME [facility] Last Admin: 11/22/21 21:26 Dose: 5 mg Documented by: GIL Olanzapine (Olanzapine 2.5 Mg Tablet) 2.5 mg PO ONCE PRN PRN Reason: anxiety/restlessness Labs CBC & Chem 7: 09/07/21 05:36 09/07/21 05:36 Assessment and Plan (1) Dementia: Status: Acute Plan 76 yo M who presented to the ED on 05/23/21 for AMS and failure to thrive. He was initially going to be placed at a facility, but on 05/29 was noted to have cough and a CXR revealed a new R base infiltrate concerning for aspiration pneumonia; has completed Abx course and now awaiting placement, received COVID vaccine developed symptomatic Covid-19 infection 08/17/21 without hypoxia No acute medical issues at this time Episode of agitation Improved , continue Zyprexa 5 mg at bedtime and Zyprexa 2.5 mg as needed for agitation Chronic problems, resolved problems Covid-19 infection resolved dementia with behavioral disturbances Use Seroquel as needed, redirection No behavioral issues noted in last several days patient has no capacity, continue current psych meds aspiration pneumonia no recurrent episode,completed treatment continue nectar thick and ground/mech [NDD2] diet suspected scabies treated with permethrin x 2 doses, no new rash noted stage 2 pressure ucler (L heel / M medial heel) and stage I bilateral buttock- present on admission continue wound care foam dressing to heel, continue barrier cream, + air loss bed + high-protein diet (on supplements) dispo awaiting LTC placement Quality Stroke Does the patient have a stroke diagnosis?: No VTE Prior VTE?: No VTE Risk Level:: Medical - moderate - high VTE Device Contraindication: N/A - Device Ordered VTE Drug Contraindication: N/A - Med Ordered
--- NOTE | 2021-11-23 13:17 | MHC.CM.PN ---
CM RECEIVED MESSAGE FROM [facility] THAT THEY CAN OFFER PT A BED ON SUNDAY 11/26, CM HAS SET UP D/C TIME OF 2PM W/[facility] FOR BLS TRANSPORT, CM WILL COMPLETE MDS AND SEND TO SNF PER REQUEST, PT WILL NEED RAPID COVID ON FRIDAY. PT'S GUARDIAN/CONSERVATOR NOTIFIED BY EMAIL, CM AWAITING RESPONSE.
[2021-11-23] MEDS: Nystatin Powder 15 GM BOTTLE 1 APPL TOPICAL ×2 (14:15→20:00)
[2021-11-23 16:00] VITALS: BP 135/62; PULSE 60; RESP 18; TEMP 36.4; O2SAT 96
--- NOTE | 2021-11-23 16:27 | MHC.CM.PN ---
PT D/CING 11/26 AT 2PM TO [facility] FOR LTC, TRANSPORT HAS BEEN SET UP W/FAWAD, CM RECEIVED APPROVAL FROM GUARDIAN VIA EMAIL ON 11/23/21. MDS/MH FORM AND UPDATED CLINICALS SENT TO [facility] VIA [employer]
[2021-11-23] MEDS: OLANZapine 5 MG TABLET PO (19:59)
[2021-11-23 23:56] VITALS: BP 117/55; PULSE 80; RESP 17; TEMP 36.6; O2SAT 97
[2021-11-24 08:00] VITALS: BP 143/79; PULSE 62; RESP 18; TEMP 36.2; O2SAT 97
--- NOTE | 2021-11-24 09:14 | HO.PM.IMPN ---
Subjective Subjective Date of Service: 11/24/21 Interval History: no complaints Cardiovascular Cardiovascular: Reports no additional cardiovascular complaints Respiratory Respiratory: Reports no additional respiratory complaints Physical Exam Vital Signs: Vital Signs: Last Vital Signs Temp 97.2 F 11/24/21 08:00 Pulse 62 11/24/21 08:00 Resp 18 11/24/21 08:00 BP 143/79 H 11/24/21 08:00 Pulse Ox 97 11/24/21 08:00 BMI result Body Mass Index 22.1 Constitutional :? interactive, disoriented at baseline , less agitated, following commands Neck : Normal inspection, Supple Respiratory :? Chest moving bilaterally, no respiratory distress Neurological : Alert & disoriented, No focal deficit Objective Data Active Medications Ascorbic Acid (Ascorbic Acid 500 Mg Tablet) 500 mg PO DAILY [facility] Last Admin: 11/23/21 09:36 Dose: Not Given Documented by: JANIE Non-Admin Reason: Patient Asleep Hydroxyzine HCl (Hydroxyzine Hcl 25 Mg Tablet) 25 mg PO Q6H PRN PRN Reason: agitation Last Admin: 11/19/21 20:58 Dose: 25 mg Documented by: DEMI Nystatin (Nystatin Powder 15 Gm Bottle) 1 appl TOPICAL TID [facility]; Protocol Last Admin: 11/23/21 20:00 Dose: 1 appl Documented by: ARELY Olanzapine (Olanzapine 5 Mg Tablet) 5 mg PO BEDTIME [facility] Last Admin: 11/23/21 19:59 Dose: 5 mg Documented by: ARELY Labs CBC & Chem 7: 09/07/21 05:36 09/07/21 05:36 Assessment and Plan (1) Dementia: Status: Acute Plan 76 yo M who presented to the ED on 05/23/21 for AMS and failure to thrive. He was initially going to be placed at a facility, but on 05/29 was noted to have cough and a CXR revealed a new R base infiltrate concerning for aspiration pneumonia; has completed Abx course and now awaiting placement, received COVID vaccine developed symptomatic Covid-19 infection 08/17/21 without hypoxia No acute medical issues at this time Episode of agitation Improved , continue Zyprexa 5 mg at bedtime and Zyprexa 2.5 mg as needed for agitation Chronic problems, resolved problems Covid-19 infection resolved dementia with behavioral disturbances Use Seroquel as needed, redirection No behavioral issues noted in last several days patient has no capacity, continue current psych meds aspiration pneumonia no recurrent episode,completed treatment continue nectar thick and ground/mech [NDD2] diet suspected scabies treated with permethrin x 2 doses, no new rash noted stage 2 pressure ucler (L heel / M medial heel) and stage I bilateral buttock- present on admission continue wound care foam dressing to heel, continue barrier cream, + air loss bed + high-protein diet (on supplements) dispo awaiting LTC placement Quality Stroke Does the patient have a stroke diagnosis?: No VTE Prior VTE?: No VTE Risk Level:: Medical - moderate - high VTE Device Contraindication: N/A - Device Ordered VTE Drug Contraindication: N/A - Med Ordered
[2021-11-24 16:00] VITALS: BP 142/69; PULSE 67; RESP 18; TEMP 36.7; O2SAT 98
[2021-11-24] MEDS: OLANZapine 5 MG TABLET PO (21:00)
[2021-11-25 08:00] VITALS: BP 118/65; PULSE 77; RESP 18; TEMP 36.4; O2SAT 97
--- NOTE | 2021-11-25 10:53 | HO.PM.IMPN ---
Subjective Subjective Date of Service: 11/25/21 Interval History: no complaints Cardiovascular Cardiovascular: Reports no additional cardiovascular complaints Respiratory Respiratory: Reports no additional respiratory complaints Physical Exam Vital Signs: Vital Signs: Last Vital Signs Temp 98.0 F 11/24/21 16:00 Pulse 67 11/24/21 16:00 Resp 18 11/24/21 16:00 BP 142/69 H 11/24/21 16:00 Pulse Ox 98 11/24/21 16:00 BMI result Body Mass Index 22.1 Constitutional :? interactive, disoriented at baseline , less agitated, following commands Neck : Normal inspection, Supple Respiratory :? Chest moving bilaterally, no respiratory distress Neurological : Alert & disoriented, No focal deficit Objective Data Active Medications Ascorbic Acid (Ascorbic Acid 500 Mg Tablet) 500 mg PO DAILY [facility] Last Admin: 11/25/21 10:38 Dose: Not Given Documented by: EFRAIN Non-Admin Reason: Patient Refused Hydroxyzine HCl (Hydroxyzine Hcl 25 Mg Tablet) 25 mg PO Q6H PRN PRN Reason: agitation Last Admin: 11/19/21 20:58 Dose: 25 mg Documented by: DEMI Nystatin (Nystatin Powder 15 Gm Bottle) 1 appl TOPICAL TID [facility]; Protocol Last Admin: 11/25/21 10:37 Dose: Not Given Documented by: EFRAIN Non-Admin Reason: Patient Refused Olanzapine (Olanzapine 5 Mg Tablet) 5 mg PO BEDTIME [facility] Last Admin: 11/24/21 21:00 Dose: 5 mg Documented by: MARÍA Labs CBC & Chem 7: 09/07/21 05:36 09/07/21 05:36 Assessment and Plan (1) Dementia: Status: Acute Plan 76 yo M who presented to the ED on 05/23/21 for AMS and failure to thrive. He was initially going to be placed at a facility, but on 05/29 was noted to have cough and a CXR revealed a new R base infiltrate concerning for aspiration pneumonia; has completed Abx course and now awaiting placement, received COVID vaccine developed symptomatic Covid-19 infection 08/17/21 without hypoxia No acute medical issues at this time Episode of agitation Improved , continue Zyprexa 5 mg at bedtime and Zyprexa 2.5 mg as needed for agitation Chronic problems, resolved problems Covid-19 infection resolved dementia with behavioral disturbances Use Seroquel as needed, redirection No behavioral issues noted in last several days patient has no capacity, continue current psych meds aspiration pneumonia no recurrent episode,completed treatment continue nectar thick and ground/mech [NDD2] diet suspected scabies treated with permethrin x 2 doses, no new rash noted stage 2 pressure ucler (L heel / M medial heel) and stage I bilateral buttock- present on admission continue wound care foam dressing to heel, continue barrier cream, + air loss bed + high-protein diet (on supplements) dispo awaiting LTC placement Quality Stroke Does the patient have a stroke diagnosis?: No VTE Prior VTE?: No VTE Risk Level:: Medical - moderate - high VTE Device Contraindication: N/A - Device Ordered VTE Drug Contraindication: N/A - Med Ordered
[2021-11-25] MEDS: Nystatin Powder 15 GM BOTTLE 1 APPL TOPICAL ×2 (14:43→21:43)
[2021-11-25 16:00] VITALS: BP 112/67; PULSE 65; RESP 18; TEMP 36.2; O2SAT 97
--- NOTE | 2021-11-25 16:49 | MHC.CM.PN ---
MDS AND MH FORMS UPDATED, MOST RECENT GUARDIANSHIP W/MIKO AND MED JUDY DONE AND PLACED IN GREEN D/C ENVELOPE ON CHART, PERMISSION FROM GUARDIAN/CONSERVATOR GIVEN VIA EMAIL 11/23/21. D/C PLAN: [facility] AT 2PM 11/26 VIA [facility] FOR BLS TRANSPORT
[2021-11-25] MEDS: hydrOXYzine HCL 25 MG TABLET PO (20:13)
[2021-11-25] MEDS: OLANZapine 5 MG TABLET PO (20:13)
[2021-11-25 23:34] VITALS: BP 138/63; PULSE 58; RESP 16; TEMP 36.3; O2SAT 98
--- NOTE | 2021-11-26 02:24 | PC.NURSE ---
Addendum entered by Radhika Barboza RN 11/26/21 05:26: reapproached pt and was ble to do Covid Swab, sample sent to lab. Original Note: Covid swab was tried in 2 occasions after explaining and persuading but pt was too resistive, does't allow staff to do the swab even with multiple staff helping.
[2021-11-26 06:19] LABS: COVID-19 Test Negative (Negative)
[2021-11-26 08:00] VITALS: BP 135/60; PULSE 65; RESP 18; TEMP 36.6; O2SAT 98
--- NOTE | 2021-11-26 08:35 | PM.DS ---
DS: Providers Provider Date of Service: 11/26/21 Date of admission: 05/29/21 15:31 Primary care physician: Unknown Physician Consults: 05/25/21 09:50 Consult to Psychiatry Stat Consulting Provider: Psych Covering Reason for consultation: undiagnosed dementia, confusion, wandering behavior, please make med recomm 05/29/21 15:35 Consult to Infectious Diseases Routine Consulting Provider: Briseida Garcia Reason for consultation: aspirational pneumonia Has provider been notified: No 05/29/21 15:37 Consult to Psychiatry Routine Consulting Provider: Psych Covering Reason for consultation: dementia with behavioural changes Has provider been notified: No 06/01/21 15:32 Consult to Care Team Routine Comment: Reason for consultation: behavioral disturbances 06/05/21 12:23 Consult to Psychiatry Routine Consulting Provider: Psych Covering Reason for consultation: psych eval for discharge planning Has provider been notified: No DS: Diagnosis Discharge Diagnosis (1) Dementia: Status: Acute DS: Summary Hospital Course Hospital Course: from initial hpi: Chief Complaint: dementia with behavioural disturbances , aspirational pneumonia 75-year-old male history was taken with the help of certified control systems technician miss theodore:? Who said that the patient's son was taking care of the patient but due to some region he needs to go to senior care recently and subsequently there is nobody to take care of the patient in the house. Patient was brought for placement, subsequently in the ED patient found to have possible aspiration pneumonia. Patient is unable to give any history he is alert oriented x1 only at baseline. As per the certified control systems technician patient also has wandering behavior, agitation behavior, probably advance dementia situation from at least worsening for 1 year. She denies any new symptoms at home including fever chills or nausea vomiting or abdominal pain but says that he was eating poorly. Lab imaging reviewed and and personally interpreted CBC seems :? No leukocytosis, has mild thrombocytopenia, chemistry :? BUN [address] head seems chronic changes Chest x-ray:? Possible right lung base pneumonia. hospital course: Patient had a prolonged hospital course, see full medical record for details. he was admitted for dementia with behavioral disturbances complicated by aspiration pneumonia. Is aspiration pneumonia was treated with IV antibiotics and cleared. His dementia with the behavior disturbances was treated with Zyprexa at bedtime and Atarax as needed. During hospitalization patient had mild case of COVID which resolved. He was also treated for scabies with to doses of permethrin. He has a stage II pressure ulcer left heel and stage I bilateral buttocks that was present on admission, she continue wound care with foam dressing to healing continue barrier cream. Otherwise most of hospitalization was for safe discharge planning. Patient will be discharged to custodial facility. Time Spent with Patient Time attestation: Total time spent providing and/or coordinating discharge services: Discharge coordination time: Greater than 30 minutes Quality: Safe Use of Opioids Does Pt have an Active Cancer Diagnosis on the Problem List?: No Quality: Stroke Does the patient have a stroke diagnosis?: No Physical Exam Vital Signs: Vital Signs: Last Vital Signs Temp 97.4 F 11/25/21 23:34 Pulse 58 11/25/21 23:34 Resp 16 11/25/21 23:34 BP 138/63 11/25/21 23:34 Pulse Ox 98 11/25/21 23:34 BMI result Body Mass Index 22.1 Constitutional :? interactive, disoriented at baseline , less agitated, following commands Neck : Normal inspection, Supple Respiratory :? Chest moving bilaterally, no respiratory distress Neurological : Alert & disoriented, No focal deficit DS: Data Data Completed and Pending Labs on day of discharge: Laboratory Results - last 24 hr 11/25/21 11/26/21 20:12 05:23 COVID-19 ([facility]) Cancelled Negative COVID-19 Clin Com Cancelled See Note Discharge Plan Discharge Patient Disposition: Xfer SNF Discharge Diagnosis: Pneumonia, question of scabies. Referrals: Physician,Unknown J [Primary Care Provider] - 1 Week Discharge Medications: New omeprazole 20 mg Capsule,Delayed Release(Dr/Ec) 20 mg PO DAILY@0630 Qty: 30 0RF folic acid 1 mg Tablet 1 mg PO DAILY Qty: 30 0RF thiamine mononitrate (vit B1) 100 mg Tablet 100 mg PO DAILY Qty: 30 0RF olanzapine 5 mg Tablet 5 mg PO BEDTIME Qty: 0 0RF hydroxyzine HCl 25 mg Tablet 25 mg PO Q6H PRN (Reason: agitation) Qty: 0 0RF Discharge Orders: Discharge Order (Routine); Ordered 11/26/21 Ordered By: Ernesto Morales Diet: advance to usual diet, low fat, low cholesterol and low salt diet Activity on Discharge: As tolerated Stand Alone Forms: Patient Portal Discharge page Care Plan Goals: Patient sent to the hospital for placement, subsequently has developed probable aspiration pneumonia started on IV antibiotics seems improving. Upon discharge added p.o. Augmentin, please complete the course. Probably has dementia with behavioral disturbances most of the workup including hiv,B12 TSH, head CT seems negative Health Concerns: As above. Plan of Treatment: As above. Assessment: As above.
[2021-11-26] MEDS: Nystatin Powder 15 GM BOTTLE 1 APPL TOPICAL (10:06)
[2021-11-26] MEDS: Ascorbic Acid 500 MG TABLET PO (10:06)
--- NOTE | 2021-11-26 14:34 | MHC.CM.PN ---
PT DISCHARGED TO [facility] FOR LTC TODAY VIA BLS CM WILL CONTACT PTS GUARDIAN AND INFORM HER OF SUCCESSFUL DC.
== END 2021-11-26 14:44 | disposition skilled nursing facility (03) | DRG 177 ==
LOC: HO.ED 05-29 09:37 → HO.S3 05-31 10:34 → HO.EDOVER 06-04 15:58 → HO.IMC 08-17 16:12 → HO.S3 08-31 14:53
PROVIDERS: Emergency Medicine; Family Medicine; Hospitalist; Internal Medicine; Student in an Organized Health Care Education/Training Program; Admitting Provider Internal Medicine; Emergency Provider Internal Medicine; Visit Provider Internal Medicine
DX: J69.0 Pneumonitis due to inhalation of food and vomit (principal); U07.1 COVID-19; F02.81 Dementia in other diseases classified elsewhere, unspecified severity, with behavioral disturbance; L89.321 Pressure ulcer of left buttock, stage 1; L89.311 Pressure ulcer of right buttock, stage 1; L27.0 Generalized skin eruption due to drugs and medicaments taken internally; T36.8X5A Adverse effect of other systemic antibiotics, initial encounter; R62.7 Adult failure to thrive; Z68.22 Body mass index [BMI] 22.0-22.9, adult; B86 Scabies; L89.622 Pressure ulcer of left heel, stage 2; G30.9 Alzheimer's disease, unspecified; I49.3 Ventricular premature depolarization; Z23 Encounter for immunization; Z79.899 Other long term (current) drug therapy
CPT/HCPCS: 36415; 70450; 71045; 80048; 80053; 80076; 81003; 82565; 82607; 82746; 82947; 83605; 83735; 84145; 84295; 84425; 84443; 85014; 85018; 85025; 85027; 85379; 86140; 86780; 87040; 87389; 87635; 87640; 87641; 92610; 93005; 94640; 96361; 96365; 96375; 97161; 97162; 97166; 97535; 99218; 99285; 99429; J0248; J2060; J2543; J3370; Q0163